=== PATIENT | female | born 1940 | race Caucasian/White ===

== ENCOUNTER 2018-08-12 17:54 | Emergency (ER) | payer OTHER, BC ==
[2018-08-12] MEDS ORDERED: ALBUTEROL 2.5 MG/3 ML NEB SOL ONE ×2 (18:33→18:38)
[2018-08-12] MEDS ORDERED: IPRATROPIUM BROM 0.5MG/2.5ML ONE ×2 (18:33→18:38)
[2018-08-12] MEDS ORDERED: NA CHLORIDE 0.9% 1,000 ML ONE (18:38)
[2018-08-12 18:51] LABS: Absolute Lymphocytes (CBC) 2.2 K/uL (0.7-4.9); Absolute Monocytes 0.6 K/uL (0.1-1.3); Absolute Neutrophil 3.8 K/uL (1.8-8.0); Basophils % 0.8 % (0-1.3); Eosinophils % 6.2 % (0-4.4); Hematocrit 41.5 % (36.0-45.0); Lymphocytes % 30.9 % (15.3-44.8); MCV 93.3 fL (80-100); MPV 8.2 fL (7.6-11.3); Monocytes % 8.9 % (3.3-12.3); RBC Red Blood Cell Count 4.45 M/uL (3.86-4.86)
[2018-08-12 18:55] LABS: Protime INR 0.94
[2018-08-12 19:07] LABS: ALT/SGPT 20 U/L (12-78); AST/SGOT 14 U/L (15-37); Albumin 3.4 g/dL (3.4-5.0); Alkaline Phosphatase 91 U/L (45-117); BUN Blood Urea Nitrogen 12 mg/dL (7-18); Bicarbonate 27 mmol/L (21-32); Bilirubin Direct < 0.1 mg/dL (0-0.2); Bilirubin Total 0.2 mg/dL (0.2-1.0); CKMB Creatine Kinase MB < 1.0 ng/mL (0.3-3.6); Creatine Phosphokinase 64 U/L (26-192); Glucose Level 96 mg/dL (74-106); Lipase 207 U/L (73-393); NT PRO-BNP 88 pg/mL (<450); Potassium 3.5 mmol/L (3.5-5.1); Sodium Level 142 mmol/L (136-145); Troponin (Emerg Dept Use Only) < 0.02 ng/mL (0.0-0.045)
--- NOTE | 2018-08-12 19:32 | RAD REPORT ---
EXAM DESCRIPTION: RAD - Chest Pa And Lat (2 Views) - 08/12/2018 7:12 pm CLINICAL HISTORY: Cough and congestion COMPARISON: None. TECHNIQUE: PA and lateral views of the chest were obtained. FINDINGS: The lungs are fibrotic. No focal lung parenchymal process seen. No failure or volume overl oad. Left-sided Port-A-Cath is in place. Heart size is normal and central vasculature is within nor mal limits. No pleural effusion or pneumothorax seen. No acute bony finding noted. No aortic abnor mality. IMPRESSION: Chronic interstitial lung disease is evident. No acute cardiopulmonary finding suspected .
--- NOTE | 2018-08-12 19:58 | RAD REPORT ---
EXAM DESCRIPTION: CT - Chest For Pe Angio - 08/12/2018 7:49 pm CLINICAL HISTORY: Cough, fever, shortness of breath, COPD COMPARISON: None. TECHNIQUE: Dynamically enhanced 3 mm thick images of the chest were obtained during administration o f approximately 150mL Isovue 370 IV contrast. Coronal and oblique MIP reconstruction images were gene rated and reviewed. Exam utilizes a protocol to evaluate the pulmonary arterial tree. All CT scans are performed using dose optimization technique as appropriate and may include automated exposure control or mA/KV adjustment according to patient size. FINDINGS: No pulmonary emboli are identified. The aorta as imaged shows no acute or suspicious finding. No pericardial thickening or effusion. No infiltrate or mass in the lung parenchyma. No pleural effusion or pleural thickening. Atelectasis changes are present in the posterior lung us and posterior aspect of the right upper lobe. No mediastinal or hilar suspicious masses. No chest wall masses or abnormal axillary lymphadenopathy. IMPRESSION: No pulmonary emboli identified. No other significant or suspicious findings.
--- NOTE | 2018-08-12 20:04 | EDPHYS ---
Physician Documentation [facility] Name: Milan Weir Age: 78 yrs Sex: Female : 1940 Arrival Date: 08/12/2018 Time: 17:56 Bed 16 Private MD: ED Physician John Ramon HPI: 08/12 18:14 This 78 yrs old Female presents to ER via Unassigned with complaints of kav Shortness Of Breath. 18:25 The patient has shortness of breath at rest, with light activity. Onset: The kav symptoms/episode began/occurred 2 year(s) ago, and became worse 1 week(s) ago. Duration: The symptoms are continuous, and are unchanged since they started. The patient's shortness of breath. Associated signs and symptoms: Pertinent positives: productive cough, fever, Pertinent negatives: dizziness, hemoptysis. Severity of symptoms: At their worst the symptoms were mild just prior to arrival. The patient has experienced similar episodes in the past, multiple times, but today's symptoms are worse. The patient has not recently seen a physician, Patient reports that she just moved to [place], [place] May 2018. Patient reports no PCP. Historical: - Allergies: 18:47 Tylenol-Codeine; rv - Home Meds: 19:09 Effexor Oral [Active]; Namenda oral oral [Active]; Aricept Oral [Active]; rv - PMHx: 18:47 COPD; rv 19:18 Alzheimers; Pancreatitis; Hernia; rv - PSHx: 19:18 Hernia repair; stomach surgery; Hysterectomy; rv - Immunization history:: Adult Immunizations up to date. - Social history:: Smoking status: Patient/guardian denies using tobacco. - Family history:: not pertinent. - Ebola Screening: : Patient negative for fever greater than or equal to 101.5 degrees Fahrenheit, and additional compatible Ebola Virus Disease symptoms Patient denies exposure to infectious person Patient denies travel to an Ebola-affected area in the 21 days before illness onset. - Hospitalizations: : No recent hospitalization is reported. ROS: 18:27 Eyes: Negative for injury, pain, redness, and discharge, ENT: Negative for injury, kav pain, and discharge, Neck: Negative for injury, pain, and swelling, Cardiovascular: Negative for chest pain, palpitations, and edema, Abdomen/GI: Negative for abdominal pain, nausea, vomiting, diarrhea, and constipation, Back: Negative for injury and pain, : Negative for injury, bleeding, discharge, and swelling, MS/Extremity: Negative for injury and deformity, Skin: Negative for injury, rash, and discoloration, Neuro: Negative for headache, weakness, numbness, tingling, and seizure, Psych: Negative for depression, anxiety, suicide ideation, homicidal ideation, and hallucinations, Allergy/Immunology: Negative for hives, rash, and allergies, Endocrine: Negative for neck swelling, polydipsia, polyuria, polyphagia, and marked weight changes, Hematologic/Lymphatic: Negative for swollen nodes, abnormal bleeding, and unusual bruising. 18:27 Constitutional: Positive for fever. 18:27 Respiratory: Positive for cough, with yellow sputum, shortness of breath. Exam: 18:27 Constitutional: This is a well developed, well nourished patient who is awake, alert, kav and in no acute distress. Head/Face: Normocephalic, atraumatic. Eyes: Pupils equal round and reactive to light, extra-ocular motions intact. Lids and lashes normal. Conjunctiva and sclera are non-icteric and not injected. Cornea within normal limits. Periorbital areas with no swelling, redness, or edema. ENT: Nares patent. No nasal discharge, no septal abnormalities noted. Tympanic membranes are normal and external auditory canals are clear. Oropharynx with no redness, swelling, or masses, exudates, or evidence of obstruction, uvula midline. Mucous membranes moist. Neck: Trachea midline, no thyromegaly or masses palpated, and no cervical lymphadenopathy. Supple, full range of motion without nuchal rigidity, or vertebral point tenderness. No Meningismus. Chest/axilla: Normal chest wall appearance and motion. Nontender with no deformity. No lesions are appreciated. Cardiovascular: Regular rate and rhythm with a normal S1 and S2. No gallops, murmurs, or rubs. Normal PMI, no JVD. No pulse deficits. Abdomen/GI: Soft, non-tender, with normal bowel sounds. No distension or tympany. No guarding or rebound. No evidence of tenderness throughout. Back: No spinal tenderness. No costovertebral tenderness. Full range of motion. Skin: Warm, dry with normal turgor. Normal color with no rashes, no lesions, and no evidence of cellulitis. MS/ Extremity: Pulses equal, no cyanosis. Neurovascular intact. Full, normal range of motion. Neuro: Awake and alert, GCS 15, oriented to person, place, time, and situation. Cranial nerves II-XII grossly intact. Motor strength 5/5 in all extremities. Sensory grossly intact. Cerebellar exam normal. Normal gait. Psych: Awake, alert, with orientation to person, place and time. Behavior, mood, and affect are within normal limits. 18:27 Respiratory: the patient does not display signs of respiratory distress, Respirations: normal, no acute changes, Breath sounds: are clear throughout, no acute changes. Vital Signs: 18:41 BP 132 / 87; Pulse 63; Resp 18; Pulse Ox 100% on R/A; Weight 52.16 kg (R); rv 19:28 BP 131 / 101; Pulse 77; Resp 22; Temp 97.9(O); Pulse Ox 100% on R/A; rv 20:35 Pulse 86; Resp 16; Pulse Ox 100% on R/A; tl2 MDM: 18:11 Medical screening is not applicable. ka 08/12 18:25 Order name: Blood Culture Adult (2) 08/12 18:25 Order name: BMP v 08/12 18:25 Order name: CBC with Diff v 08/12 18:25 Order name: Ckmb v 08/12 18:25 Order name: CPK v 08/12 18:25 Order name: D-Dimer; Complete Time: 19:22 kav 08/12 18:25 Order name: Hepatic Function; Complete Time: 19:22 kav 08/12 18:25 Order name: Lipase; Complete Time: 19:22 kav 08/12 18:25 Order name: Magnesium; Complete Time: 19:22 kav 08/12 18:25 Order name: NT PRO-BNP; Complete Time: 19:22 kav 08/12 18:25 Order name: PT-INR; Complete Time: 19:22 kav 08/12 18:25 Order name: Ptt, Activated; Complete Time: 19:22 kav 08/12 18:25 Order name: Troponin (emerg Dept Use Only); Complete Time: 19:22 kav 08/12 18:25 Order name: Blood Culture EDIL 08/12 18:25 Order name: XRAY Chest Pa And Lat (2 Views); Complete Time: 20:02 kav 08/12 18:25 Order name: EKG; Complete Time: 18:26 kav 08/12 18:25 Order name: Cardiac monitoring; Complete Time: 18:27 kav 08/12 18:25 Order name: EKG - Nurse/Tech; Complete Time: 18:27 kav 08/12 18:25 Order name: IV Saline Lock; Complete Time: 18:43 kav 08/12 18:25 Order name: Labs collected and sent; Complete Time: 18:43 kav 08/12 18:25 Order name: O2 Per Protocol; Complete Time: 18:27 kav 08/12 18:25 Order name: Basic Metabolic Panel; Complete Time: 19:22 EDMS 08/12 18:26 Order name: CBC with Automated Diff; Complete Time: 19:22 EDMS 08/12 18:26 Order name: CKMB Creatine Kinase MB; Complete Time: 19:22 EDMS 08/12 18:26 Order name: Creatine Phosphokinase; Complete Time: 19:22 EDMS 10 19:24 Order name: CT Chest For PE Angio; Complete Time: 20:02 kav 08/12 20:02 Interpretation: No acute disease. [facility] 08/12 18:25 Order name: O2 Sat Monitoring; Complete Time: 18:27 kav Administered Medications: 18:27 Drug: NS 0.9% 500 ml Route: IV; Rate: 100 ml/hr; Site: left antecubital; hj 20:37 Follow up: IV Status: Completed infusion; IV Intake: 500ml tl2 18:27 Drug: DuoNeb (3:1) (2.5 mg - 0.5 mg) 3 ml Route: Nebulizer; hj 20:23 Follow up: Response: No adverse reaction; Marked relief of symptoms tl2 20:11 Not Given (Patient Refused): Ibuprofen 600 mg PO once tl2 20:23 Drug: Phenergan 25 mg Route: PO; tl2 20:38 Follow up: Response: No adverse reaction; Medication administered at discharge. tl2 Disposition: 08/13 07:37 Co-signature as Attending Physician, John Ramon MD. rn Disposition: 08/12/18 20:04 Discharged to Home. Impression: Acute upper respiratory infection, unspecified. - Condition is Stable. - Discharge Instructions: Upper Respiratory Infection, Adult. - Prescriptions for Zithromax Z- Andrea 250 mg Oral Tablet - take 1 tablet by ORAL route as directed for 5 days Day 1 - take two (2) tablets one time. Day 2, 3, 4 , 5 take one (1) tablet once daily.; 6 tablet. Medrol (Andrea) 4 mg Oral Tablets, Dose Pack - take 1 tablet by ORAL route as directed - follow package instructions; 1 packet. benzonatate 100 mg Oral Capsule - take 1 capsule by ORAL route 3 times per day; 30 capsule. - Medication Reconciliation Form, Thank You Letter, Antibiotic Education, Prescription Opioid Use form. - Follow up: Private Physician; When: 2 - 3 days; Reason: Recheck today's complaints, Continuance of care, Re-evaluation by your physician. - Problem is new. - Symptoms have improved. Signatures: Dispatcher [employer] EDMS Alma Ibarra, FLOWER POT PRESS OPERATOR FLOWER POT PRESS OPERATOR John Nesbitt MD MD rn Joaquin, Henry RN Verito Angel RN RN tl2 Wilbert House RN RN rv Corrections: (The following items were deleted from the chart) 08/12 20:39 20:04 08/12/2018 20:04 Discharged to Home. Impression: Acute upper respiratory tl2 infection, unspecified. Condition is Stable. Forms are Medication Reconciliation Form, Thank You Letter, Antibiotic Education, Prescription Opioid Use. Follow up: Private Physician; When: 2 - 3 days; Reason: Recheck today's complaints, Continuance of care, Re-evaluation by your physician. Problem is new. Symptoms have improved. kav
--- NOTE | 2018-08-12 20:04 | ER ---
Nurse's Notes [facility] Name: Milan Weir Age: 78 yrs Sex: Female : 1940 Arrival Date: 08/12/2018 Time: 17:56 Bed 16 Private MD: Diagnosis: Acute upper respiratory infection, unspecified Presentation: 08/12 18:38 Presenting complaint: Patient states: PATIENT STATES: COUGH IS TWO MONTHS NOW. HAVING rv FEVER FOR THE LAST FOUR TO FIVE DAYS. PRODUCTIVE COUGH WITH WHITE TO YELLOWISH SPUTUM. SOB (+). Transition of care: patient was not received from another setting of care. Onset of symptoms was August 11, 2018 at 08:00. Risk Assessment: Do you want to hurt yourself or someone else? Patient reports no desire to harm self or others. Initial Sepsis Screen: Does the patient meet any 2 criteria? No. Patient's initial sepsis screen is negative. Care prior to arrival: None. 18:38 Method Of Arrival: Ambulatory rv 18:38 Acuity: JARRETT 3 rv 20:37 Initial Sepsis Screen: Does the patient have a suspected source of infection? No. tl2 Patient's initial sepsis screen is negative. Triage Assessment: 18:47 Respiratory: Reports shortness of breath on exertion Onset: The symptoms/episode rv began/occurred gradually, the patient has moderate shortness of breath. Historical: - Allergies: 18:47 Tylenol-Codeine; rv - Home Meds: 19:09 Effexor Oral [Active]; Namenda oral oral [Active]; Aricept Oral [Active]; rv - PMHx: 18:47 COPD; rv 19:18 Alzheimers; Pancreatitis; Hernia; rv - PSHx: 19:18 Hernia repair; stomach surgery; Hysterectomy; rv - Immunization history:: Adult Immunizations up to date. - Social history:: Smoking status: Patient/guardian denies using tobacco. - Family history:: not pertinent. - Ebola Screening: : Patient negative for fever greater than or equal to 101.5 degrees Fahrenheit, and additional compatible Ebola Virus Disease symptoms Patient denies exposure to infectious person Patient denies travel to an Ebola-affected area in the 21 days before illness onset. - Hospitalizations: : No recent hospitalization is reported. Screenin:44 Abuse screen: Denies threats or abuse. Denies injuries from another. Nutritional rv screening: No deficits noted. Tuberculosis screening: Never had TB. Possible symptoms: recent fever, cough for more than 2 weeks, Risk factors: None. Fall Risk No fall in past 12 months (0 pts). No secondary diagnosis (0 pts). No IV (0 pts). Ambulatory Aid- None/Bed Rest/Nurse Assist (0 pts). Gait- Weak (10 pts.). Mental Status- Oriented to own ability (0 pts). Total Owen Fall Scale indicates No Risk (0-24 pts). Assessment: 18:41 General: Appears in no apparent distress. uncomfortable, Behavior is calm, cooperative. rv Pain: Complains of pain in NECK AND BACK. Neuro: Level of Consciousness is obeys commands, Oriented to person, place, time, situation. Cardiovascular: Capillary refill < 3 seconds Rhythm is regular. Respiratory: Airway is patent Respiratory effort is labored, Breath sounds are coarse bilaterally. GI: No signs and/or symptoms were reported involving the gastrointestinal system. : No signs and/or symptoms were reported regarding the genitourinary system. EENT: No signs and/or symptoms were reported regarding the EENT system. Derm: Skin is intact. Musculoskeletal: Reports pain in NECK AND BACK. 19:28 Reassessment: Patient appears in no apparent distress at this time. General: Appears in rv no apparent distress. uncomfortable, Behavior is cooperative, appropriate for age, anxious. Pain: Complains of pain in neck and back. Neuro: Level of Consciousness is awake, alert, obeys commands, Oriented to person, place, time, situation. Cardiovascular: Denies chest pain, Rhythm is sinus rhythm. Respiratory: Reports shortness of breath cough that is Airway is patent Respiratory effort is even, unlabored, Respiratory pattern is regular, symmetrical, Breath sounds are coarse bilaterally. GI: Reports nausea. : No signs and/or symptoms were reported regarding the genitourinary system. Derm: Skin is intact, Skin is pink, warm \\T\\ dry. 19:31 Reassessment: Pt asked about accessing her port, pt said her port hasn't been accessed rv in "a while". Informed pt that we cannot access port if it hasn't been packed with heparin. Pt has 22 g to L AC that is patent and has good blood return. 20:35 Reassessment: Patient appears in no apparent distress at this time. Patient and/or tl2 family updated on plan of care and expected duration. Pain level reassessed. Patient is alert, oriented x 3, equal unlabored respirations, skin warm/dry/pink. Pt refused ibuprofen, states that it doesn't work. EMERGENCY DEPARTMENT CLINICIAN at bedside, ordered for PO phenergan before discharge. Pt and family verbalized understanding of discharge instructions, need for follow up, prescription usage and given resources for PCP's. Vital Signs: 18:41 BP 132 / 87; Pulse 63; Resp 18; Pulse Ox 100% on R/A; Weight 52.16 kg (R); rv 19:28 BP 131 / 101; Pulse 77; Resp 22; Temp 97.9(O); Pulse Ox 100% on R/A; rv 20:35 Pulse 86; Resp 16; Pulse Ox 100% on R/A; tl2 Vitals: 19:28 Cardiac Rhythm Assessment Sinus rhythm. rv ED Course: 17:56 Patient arrived in ED. as 18:11 Alma Ibarra FNP is PHCP. kav 18:11 John Ramon MD is Attending Physician. kav 18:30 Inserted saline lock: 22 gauge in left antecubital area, using aseptic technique. Blood rv collected. 18:30 Initial lab(s) drawn, by me, sent to lab. First set of blood cultures drawn by me. rv 18:40 Triage completed. rv 18:45 Arm band placed on right wrist. EKG completed in triage. Results shown to MD. rv 18:48 Patient has correct armband on for positive identification. Bed in low position. Call rv light in reach. Side rails up X 1. Adult w/ patient. Pulse ox on. NIBP on. 18:49 CBC with Diff Sent. rv 18:49 Blood Culture Adult (2) Sent. rv 18:49 BMP Sent. rv 18:49 Ckmb Sent. rv 18:49 CPK Sent. rv 18:49 D-Dimer Sent. rv 18:49 Hepatic Function Sent. rv 18:49 Lipase Sent. rv 18:49 Creatine Phosphokinase Sent. rv 18:50 CKMB Creatine Kinase MB Sent. rv 18:50 CBC with Automated Diff Sent. rv 18:50 Basic Metabolic Panel Sent. rv 18:50 Blood Culture Sent. rv 19:12 XRAY Chest Pa And Lat (2 Views) In Process Unspecified. EDMS 19:[address] ms 19:28 IV is patent, is intact, with good blood return. rv 19:49 CT completed. Patient tolerated procedure well. Patient moved back from [place]. ms 19:49 CT Chest For PE Angio In Process Unspecified. EDMS 19:59 Verito Holt, RN is Primary Nurse. tl2 20:35 No provider procedures requiring assistance completed. IV discontinued, intact, tl2 bleeding controlled, No redness/swelling at site. Pressure dressing applied. Administered Medications: 18:27 Drug: NS 0.9% 500 ml Route: IV; Rate: 100 ml/hr; Site: left antecubital; hj 20:37 Follow up: IV Status: Completed infusion; IV Intake: 500ml tl2 18:27 Drug: DuoNeb (3:1) (2.5 mg - 0.5 mg) 3 ml Route: Nebulizer; hj 20:23 Follow up: Response: No adverse reaction; Marked relief of symptoms tl2 20:11 Not Given (Patient Refused): Ibuprofen 600 mg PO once tl2 20:23 Drug: Phenergan 25 mg Route: PO; tl2 20:38 Follow up: Response: No adverse reaction; Medication administered at discharge. tl2 Intake: 20:37 IV: 500ml; Total: 500ml. tl2 Outcome: 20:04 Discharge ordered by MD. del cid 20:35 Discharged to home ambulatory, with family. tl2 20:35 Condition: stable 20:35 Discharge instructions given to patient, family, Instructed on discharge instructions, follow up and referral plans. medication usage, Demonstrated understanding of instructions, follow-up care, medications, Prescriptions given X 3. 20:39 Patient left the ED. tl2 Signatures: Dispatcher [employer] EDNE Alma Ibarra, TRANSMISSION LINE ENGINEER Rose Calles Henry, RN RN Verito Holt, RN RN tl2 Last Martin Ronaldo, RN RN rv
[2018-08-12] MEDS ORDERED: IBUPROFEN 200 MG TAB PO ONE (20:13)
[2018-08-12] MEDS ORDERED: IBUPROFEN 400 MG TAB ONE (20:13)
[2018-08-12] MEDS ORDERED: PROMETHAZINE 25 MG TABLET ONE (20:22)
--- NOTE | 2018-08-13 17:48 | EKG ---
Test Date: 2018-08-12 Test Time: 18:16:27 Encapsulator: MEASUREMENT RESULTS: Intervals: Rate: 63 [place]: 136 QRSD: 72 QT: 408 QTc: 417 [place]: P: 81 [place]: 136 QRS: 71 T: 73 INTERPRETIVE STATEMENTS: Normal sinus rhythm Normal ECG No previous ECG available for comparison Electronically Signed On 08-13-18 17:47:36 LINE STAKER by Stephen Alvarado
== END 2018-08-12 20:39 | disposition home or self-care (01) ==
LOC: ER 17:54
DX: J06.9 Acute upper respiratory infection, unspecified (principal); G30.9 Alzheimer's disease, unspecified; F02.80 Dementia in other diseases classified elsewhere, unspecified severity, without behavioral disturbance, psychotic disturbance, mood disturbance, and anxiety; J44.9 Chronic obstructive pulmonary disease, unspecified; Z88.5 Allergy status to narcotic agent
CPT/HCPCS: 36415; 71046; 71275; 80048; 80076; 82550; 82553; 83690; 83735; 83880; 84484; 85025; 85379; 85610; 85730; 87040 ×2; 93005; 94640; 96360; 96361; 99285; J7030; Q9967

== ENCOUNTER 2018-10-07 15:44 | Inpatient (IN) | payer OTHER, BC ==
--- OUTSIDE RECORDS SUMMARY | 2018-10-07 15:54 | XMS REPORT ---
:1940 [facility] Address [address] [place] [address] Care Team Providers Name Role Phone IVONSAMARIA MIKHAIL Unavailable Unavailable Problems This patient has no known problems. Allergies, Adverse Reactions, Alerts This patient has no known allergies or adverse reactions. Medications This patient has no known medications. Results Test Description Test Time Test Comments Text Results Atomic Results Result Comments BLOOD UREA NTIROGEN (BUN) 2016-12-27 09:33:00 Test Item Value Reference Range Comments BUN (test code=BUN) 16.0 mg/dl 6.0-17.0 CREATININE, [id number] 09:33:00 Test Item Value Reference Range Comments Creatinine (test 1.0 mg/dl 0.4-1.2 code=CREA) EGFR if >60 (test code=EGFRAA) mL/min/1.73m\S\2 EGFR if Non- 57 Estimated Glomerular Haitian (test mL/min/1.73m\S\2 Filtration Rate (eGFR) code=EGFRNA) Reference Intervals Decision Points for 18 years and older and average body mass: >=60 Does not exclude kidney disease. 30 - 59 Suggests moderate chronic kidney disease and indicates the need for further investigation including assessment of proteinuria and cardiovascular factors. < 30 Usually indicates a need for referral for assessment and management of chronic kidney failure.
[2018-10-07 18:39] LABS: Absolute Lymphocytes (CBC) 1.8 K/uL (0.7-4.9); Absolute Monocytes 0.5 K/uL (0.1-1.3); Absolute Neutrophil 4.6 K/uL (1.8-8.0); Basophils % 0.6 % (0-1.3); Eosinophils % 3.3 % (0-4.4); Lymphocytes % 25.1 % (15.3-44.8); MPV 7.9 fL (7.6-11.3); RBC Red Blood Cell Count 4.52 M/uL (3.86-4.86)
[2018-10-07] MEDS ORDERED: FENTANYL CITR 100 MCG/2 ML ONE (18:42)
[2018-10-07] MEDS ORDERED: ONDANSETRON 4 MG/2 ML VIAL ONE (18:43)
[2018-10-07] MEDS ORDERED: NA CHLORIDE 0.9% 1,000 ML ONE (18:43)
[2018-10-07 18:56] LABS: Albumin 3.1 g/dL (3.4-5.0); Bilirubin Direct 0.1 mg/dL (0-0.2); Bilirubin Total 0.3 mg/dL (0.2-1.0); Potassium 3.4 mmol/L (3.5-5.1); Protein, Total 6.6 g/dL (6.4-8.2)
--- NOTE | 2018-10-07 19:55 | RAD REPORT ---
EXAM DESCRIPTION: CT - Abdomen Pelvis W Contrast - 10/07/2018 7:25 pm CLINICAL HISTORY: Abdominal pain/right-sided pain with vomiting COMPARISON: October 04, 2018 TECHNIQUE: Computed axial tomography of the abdomen pelvis was obtained. 100 cc Isovue-300 was admin istered intravenously. Oral contrast was not requested which limits evaluation of bowel. All CT scans are performed using dose optimization technique as appropriate and may include automated exposure control or mA/KV adjustment according to patient size. FINDINGS: The liver, spleen, pancreas, adrenal and kidneys appear unremarkable. There is no evidence of diverticulitis. A hysterectomy has been performed. An adnexal mass is not see n. The gallbladder has been removed Cecum is minimally distended measuring 6 centimeters IMPRESSION: Minimal cecal distention measuring 6 millimeters. Otherwise no acute abnormality is displayed
[2018-10-07] MEDS ORDERED: PROMETHAZINE 25 MG/ML VIAL ONE (20:04)
[2018-10-07] MEDS ORDERED: MORPHINE 4 MG/ML SYR ONE (20:04)
[2018-10-07] MEDS ORDERED: MEPERIDINE HCL 25 MG/0.5 ML ONE (20:25)
--- NOTE | 2018-10-07 21:03 | ER ---
Nurse's Notes [facility] Name: Milan Weir Age: 78 yrs Sex: Female : 1940 Arrival Date: 10/07/2018 Time: 15:47 Bed 8 Private MD: Burak Pino K; Brandie Washington M Diagnosis: Generalized abdominal pain-cecal distention Presentation: 10/07 15:53 Presenting complaint: Patient states: Right sided abd pain, was seen at PCP office and hb sent over for low o2 with readings in the 90's per pt, pt reports hx of pancreatitis and this is what it feels like, reports having N/V for today. Transition of care: patient was not received from another setting of care. Onset of symptoms was October 07, 2018. Risk Assessment: Do you want to hurt yourself or someone else? Patient reports no desire to harm self or others. Initial Sepsis Screen: Does the patient meet any 2 criteria? No. Patient's initial sepsis screen is negative. Does the patient have a suspected source of infection? No. Patient's initial sepsis screen is negative. Care prior to arrival: None. 15:53 Method Of Arrival: Wheelchair hb 15:53 Acuity: JARRETT 3 hb Triage Assessment: 18:04 General: Appears distressed, uncomfortable, Behavior is cooperative, appropriate for bp age, anxious. Pain: Complains of pain in abdomen. GI: Abdomen is non-distended, Bowel sounds present X 4 quads. Historical: - Allergies: 15:52 Tylenol-Codeine; hb - Home Meds: 18:04 Aricept Oral [Active]; Effexor Oral [Active]; Namenda Oral [Active]; bp - PMHx: 18:04 Alzheimers; COPD; Hernia; Pancreatitis; bp - Immunization history:: Adult Immunizations up to date. - Social history:: Smoking status: Patient/guardian denies using tobacco. - Ebola Screening: : Patient negative for fever greater than or equal to 101.5 degrees Fahrenheit, and additional compatible Ebola Virus Disease symptoms Patient denies exposure to infectious person Patient denies travel to an Ebola-affected area in the 21 days before illness onset No symptoms or risks identified at this time. Screenin:07 Abuse screen: Denies threats or abuse. Denies injuries from another. Nutritional bp screening: No deficits noted. Tuberculosis screening: No symptoms or risk factors identified. Fall Risk None identified. Assessment: 16:46 Reassessment: pt no longer in lobby or outside of the department. sg 18:05 General: Appears distressed, uncomfortable, Behavior is cooperative, appropriate for bp age, anxious. Pain: Complains of pain in abdomen. Neuro: Level of Consciousness is awake, alert, obeys commands, Oriented to person, place, time, situation, Appropriate for age. Cardiovascular: No deficits noted. Respiratory: Airway is patent Respiratory effort is even, unlabored, Respiratory pattern is regular, symmetrical. GI: Bowel sounds present X 4 quads. Abdomen is tender to palpation X 4 quads. : No signs and/or symptoms were reported regarding the genitourinary system. EENT: No deficits noted. Derm: No deficits noted. Musculoskeletal: Circulation, motion, and sensation intact. Range of motion: intact in all extremities. 19:48 Reassessment: pt assisted to bedside commode with Jo Burns RN. pt reports nausea and ak1 dry heaves and would like Phenergan, WATER ANALYST notified. 20:23 Reassessment: Patient appears in no apparent distress at this time. Patient and/or ak1 family updated on plan of care and expected duration. Pain level reassessed. Patient is alert, oriented x 3, equal unlabored respirations, skin warm/dry/pink. pt and family informed of plan to discharge pt home. 22:07 Reassessment: Patient appears in no apparent distress at this time. No changes from ak1 previously documented assessment. Patient and/or family updated on plan of care and expected duration. Pain level reassessed. Patient is alert, oriented x 3, equal unlabored respirations, skin warm/dry/pink. family asking to see Dr. Larry. pt and family informed of increased number of admissions at this time and Dr. Larry notified of request, will be to room "shortly". 22:52 Reassessment: pt family Charlette ([phone]) and Guero ([phone]). ak1 Vital Signs: 15:52 BP 141 / 80; Pulse 89; Resp 24; Temp 98.3; Pulse Ox 99% on R/A; hb 20:24 BP 164 / 70; Pulse 90; Resp 20; Temp 98.3; Pulse Ox 100% on R/A; ak1 20:44 BP 148 / 81; Pulse 67; Resp 18; Temp 98.3; Pulse Ox 98% on R/A; Pain 3/10; ak1 22:09 BP 105 / 56; Pulse 68; Resp 16; Temp 98.3; Pulse Ox 97% on R/A; ak1 23:07 BP 120 / 65; Pulse 64; Resp 20; Temp 98.3; Pulse Ox 96% on R/A; ak1 ED Course: 15:47 Patient arrived in ED. tw3 15:52 Brandie Washington MD is Private Physician. hb 15:52 Burak Pino MD is Private Physician. hb 15:54 Triage completed. hb 15:54 Arm band placed on. hb 18:00 Donaldo Pennington, SANDY is Primary Nurse. bp 18:00 Inserted saline lock: 22 gauge in right antecubital area, using aseptic technique. bp Blood collected. 18:06 Pet[facility]anches F[facility]-C [facility]. kb 18:06 John Ramon MD is Attending Physician. kb 18:07 Patient has correct armband on for positive identification. Bed in low position. Call bp light in reach. Side rails up X2. Adult w/ patient. 19:14 Primary Nurse role handed off by Donaldo Pennington, SANDY ak1 19:14 Mariana Lima, SANDY is Primary Nurse. ak1 19:32 CT Abd/Pelvis - W/Contrast In Process Unspecified. EDMS 21:01 Burak Pino MD is Hospitalizing Provider. kb 21:01 Gavin Salazar MD is Hospitalizing Provider. kb 22:08 No provider procedures requiring assistance completed. Patient admitted, IV remains in ak1 place. Administered Medications: 18:20 Drug: NS 0.9% 1000 ml Route: IV; Rate: 1000 ml; Site: right antecubital; bp 20:09 Follow up: IV Status: Completed infusion; IV Intake: 1000ml ak1 18:20 Drug: Zofran 4 mg Route: IVP; Site: right antecubital; bp 20:09 Follow up: Response: Nausea unchanged ak1 18:20 Drug: fentaNYL (PF) 50 mcg Route: IVP; Site: right antecubital; bp 20:09 Follow up: Response: Pain is unchanged, physician notified ak1 20:09 Drug: Phenergan 12.5 mg Route: IVP; Site: right antecubital; ak1 20:23 Follow up: Response: No adverse reaction; Nausea is decreased ak1 20:21 Not Given (Patient Refused; pt asked for demerol, WATER ANALYST notified. ): morphine 4 mg IVP onceak1 20:22 Drug: Demerol - Meperidine 12.5 mg Route: IVP; Site: right antecubital; ak1 20:43 Follow up: Response: No adverse reaction; Pain is unchanged, physician notified ak1 20:43 Drug: Demerol - Meperidine 12.5 mg Route: IVP; Site: right antecubital; ak1 20:44 Follow up: Response: No adverse reaction; Pain is decreased ak1 21:04 Drug: Flagyl 500 mg Volume: 100 ml; Route: IVPB; Rate: 200 ml/hr; Infused Over: 30 ak1 mins; Site: right antecubital; 21:38 Follow up: IV Status: Completed infusion; IV Intake: 100ml ak1 21:04 Drug: Cipro 400 mg Volume: 200 ml; Route: IVPB; Infused Over: 60 mins; Site: right ak1 antecubital; 22:09 Follow up: IV Status: Completed infusion; IV Intake: 200ml ak1 Intake: 20:09 IV: 1000ml; Total: 1000ml. ak1 21:38 IV: 100ml; Total: 1100ml. ak1 22:09 IV: 200ml; Total: 1300ml. ak1 Outcome: 21:02 Decision to Hospitalize by Provider. kb 22:12 Instructed on the need for admit. ak1 22:13 Condition: stable ak1 23:08 Admitted to Med/surg accompanied by tech, via stretcher, room 212, with chart, Report ak1 called to Katiana nurse for 212. 10/08 00:03 Patient left the ED. ak1 Signatures: Dispatcher [employer] EDMS Petra Sanches, WEB PRODUCER-C WEB PRODUCER-Rey Jennings RN RN Mariana Rivera RN RN ak1 Richa Hathaway RN RN Leonardo, Jacqueline tw3 Donaldo Pennington, RN RN bp
--- NOTE | 2018-10-07 21:03 | EDPHYS ---
Physician Documentation [facility] Name: Milan Weir Age: 78 yrs Sex: Female : 1940 Arrival Date: 10/07/2018 Time: 15:47 Bed 8 Private MD: Burak Pino K; Brandie Washington M ED Physician John Ramon HPI: 10/07 21:29 This 78 yrs old Female presents to ER via Wheelchair with complaints of Abd kb Pain > 50 y/o, Shortness Of Breath, Nausea/Vomiting. 21:29 The patient presents with abdominal pain that is diffuse. Onset: The symptoms/episode kb began/occurred 5 day(s) ago. The symptoms do not radiate. Associated signs and symptoms: Pertinent positives: nausea and vomiting, Pertinent negatives: anorexia, blood in stools, chest pain, constipation, diarrhea, dysuria, fever, headache, hematuria, palpitations, shortness of breath, vaginal discharge, vomiting blood. The symptoms are described as constant. Modifying factors: The symptoms are alleviated by nothing, the symptoms are aggravated by pressure. Severity of pain: At its worst the pain was moderate in the emergency department the pain is unchanged. The patient has experienced a previous episode. The patient has been recently seen by a physician: the patient's primary care provider, with similar presenting complaints, and was sent to the [facility] Emergency Department for further evaluation. Historical: - Allergies: 15:52 Tylenol-Codeine; hb - Home Meds: 18:04 Aricept Oral [Active]; Effexor Oral [Active]; Namenda Oral [Active]; bp - PMHx: 18:04 Alzheimers; COPD; Hernia; Pancreatitis; bp - Immunization history:: Adult Immunizations up to date. - Social history:: Smoking status: Patient/guardian denies using tobacco. - Ebola Screening: : Patient negative for fever greater than or equal to 101.5 degrees Fahrenheit, and additional compatible Ebola Virus Disease symptoms Patient denies exposure to infectious person Patient denies travel to an Ebola-affected area in the 21 days before illness onset No symptoms or risks identified at this time. ROS: 21:28 Constitutional: Negative for fever, chills, and weight loss, ENT: Negative for injury, kb pain, and discharge, Neck: Negative for injury, pain, and swelling, Cardiovascular: Negative for chest pain, palpitations, and edema, Respiratory: Negative for shortness of breath, cough, wheezing, and pleuritic chest pain, Back: Negative for injury and pain, : Negative for injury, bleeding, discharge, and swelling, MS/Extremity: Negative for injury and deformity, Skin: Negative for injury, rash, and discoloration, Neuro: Negative for headache, weakness, numbness, tingling, and seizure. 21:28 Abdomen/GI: Positive for abdominal pain, nausea and vomiting, Negative for diarrhea, constipation, abdominal cramps, abdominal distension, anorexia. Exam: 21:29 Constitutional: This is a well developed, well nourished patient who is awake, alert, kb and in no acute distress. Head/Face: Normocephalic, atraumatic. ENT: Nares patent. No nasal discharge, no septal abnormalities noted. Tympanic membranes are normal and external auditory canals are clear. Oropharynx with no redness, swelling, or masses, exudates, or evidence of obstruction, uvula midline. Mucous membranes moist. Neck: Trachea midline, no thyromegaly or masses palpated, and no cervical lymphadenopathy. Supple, full range of motion without nuchal rigidity, or vertebral point tenderness. No Meningismus. Chest/axilla: Normal chest wall appearance and motion. Nontender with no deformity. No lesions are appreciated. Cardiovascular: Regular rate and rhythm with a normal S1 and S2. No gallops, murmurs, or rubs. Normal PMI, no JVD. No pulse deficits. Respiratory: Lungs have equal breath sounds bilaterally, clear to auscultation and percussion. No rales, rhonchi or wheezes noted. No increased work of breathing, no retractions or nasal flaring. Back: No spinal tenderness. No costovertebral tenderness. Full range of motion. Skin: Warm, dry with normal turgor. Normal color with no rashes, no lesions, and no evidence of cellulitis. MS/ Extremity: Pulses equal, no cyanosis. Neurovascular intact. Full, normal range of motion. Neuro: Awake and alert, GCS 15, oriented to person, place, time, and situation. Cranial nerves II-XII grossly intact. Motor strength 5/5 in all extremities. Sensory grossly intact. Cerebellar exam normal. Normal gait. 21:29 Abdomen/GI: Inspection: abdomen appears normal, Bowel sounds: normal, in all quadrants, Palpation: soft, in all quadrants, severe abdominal tenderness, in all quadrants. Vital Signs: 15:52 BP 141 / 80; Pulse 89; Resp 24; Temp 98.3; Pulse Ox 99% on R/A; hb 20:24 BP 164 / 70; Pulse 90; Resp 20; Temp 98.3; Pulse Ox 100% on R/A; ak1 20:44 BP 148 / 81; Pulse 67; Resp 18; Temp 98.3; Pulse Ox 98% on R/A; Pain 3/10; ak1 22:09 BP 105 / 56; Pulse 68; Resp 16; Temp 98.3; Pulse Ox 97% on R/A; ak1 23:07 BP 120 / 65; Pulse 64; Resp 20; Temp 98.3; Pulse Ox 96% on R/A; ak1 MDM: 18:06 Patient medically screened. kb 20:28 Data reviewed: vital signs, nurses notes. Data interpreted: Pulse oximetry: on room air kb is 100 %. Interpretation: normal. Physician consultation: Demian Garsia MD was contacted at 20:29, regarding consult, patient's condition, spoke with CLERK GUIDE, awaiting call back. 20:40 Physician consultation: Demian Garsia MD was contacted at 20:41, regarding consult, kb patient's condition, and will see patient in inpatient room, tomorrow. 20:50 Counseling: I had a detailed discussion with the patient and/or guardian regarding: the kb historical points, exam findings, and any diagnostic results supporting the discharge/admit diagnosis, lab results, radiology results, the need for further work-up and treatment in the hospital. 21:00 Physician consultation: Gavin Salazar MD was contacted at 21:01, regarding admission, kb to the medical/surgical unit. patient's condition, and will see patient in ED, shortly. 10/07 18:12 Order name: Basic Metabolic Panel; Complete Time: 19:01 kb 10/07 18:12 Order name: CBC with Diff; Complete Time: 18:50 kb 10/07 18:12 Order name: Hepatic Function; Complete Time: 19:01 kb 10/07 18:12 Order name: Lipase; Complete Time: 19:01 kb 10/07 19:02 Order name: CT Abd/Pelvis - W/Contrast; Complete Time: 19:58 kb 10/07 18:12 Order name: IV Saline Lock; Complete Time: 18:39 kb 10/07 18:12 Order name: Labs collected and sent; Complete Time: 18:39 kb Administered Medications: 18:20 Drug: NS 0.9% 1000 ml Route: IV; Rate: 1000 ml; Site: right antecubital; bp 20:09 Follow up: IV Status: Completed infusion; IV Intake: 1000ml ak1 18:20 Drug: Zofran 4 mg Route: IVP; Site: right antecubital; bp 20:09 Follow up: Response: Nausea unchanged ak1 18:20 Drug: fentaNYL (PF) 50 mcg Route: IVP; Site: right antecubital; bp 20:09 Follow up: Response: Pain is unchanged, physician notified ak1 20:09 Drug: Phenergan 12.5 mg Route: IVP; Site: right antecubital; ak1 20:23 Follow up: Response: No adverse reaction; Nausea is decreased ak1 20:21 Not Given (Patient Refused; pt asked for demerol, CLERK GUIDE notified. ): morphine 4 mg IVP onceak1 20:22 Drug: Demerol - Meperidine 12.5 mg Route: IVP; Site: right antecubital; ak1 20:43 Follow up: Response: No adverse reaction; Pain is unchanged, physician notified ak1 20:43 Drug: Demerol - Meperidine 12.5 mg Route: IVP; Site: right antecubital; ak1 20:44 Follow up: Response: No adverse reaction; Pain is decreased ak1 21:04 Drug: Flagyl 500 mg Volume: 100 ml; Route: IVPB; Rate: 200 ml/hr; Infused Over: 30 ak1 mins; Site: right antecubital; 21:38 Follow up: IV Status: Completed infusion; IV Intake: 100ml ak1 21:04 Drug: Cipro 400 mg Volume: 200 ml; Route: IVPB; Infused Over: 60 mins; Site: right ak1 antecubital; 22:09 Follow up: IV Status: Completed infusion; IV Intake: 200ml ak1 Disposition: 10/08 17:17 Co-signature as Attending Physician, John Ramon MD. rn Disposition: 10/07/18 21:02 Hospitalization ordered by Gavin Salazar for Observation. Preliminary diagnosis is Generalized abdominal pain - cecal distention. - Bed requested for Telemetry/MedSurg (observation). - Status is Observation. ak1 - Condition is Stable. - Problem is new. - Symptoms have improved. UTI on Admission? No Signatures: Dispatcher [employer] EDMS Petra Sanches, ARCADE GAMES MECHANIC-C ARCADE GAMES MECHANIC-Ckb Nora Henderson, RN RN John Ramon MD MD rn Krenek, Amber RN SANDY ak1 Richa Hathaway, RN RN Donaldo Pennington, RN RN bp Corrections: (The following items were deleted from the chart) 10/07 21:29 21:29 Abdomen/GI: Inspection: abdomen appears normal, Bowel sounds: normal, in all kb quadrants, Palpation: soft, in all quadrants, moderate abdominal tenderness, in all quadrants, kb 22:30 21:02 Hospitalization Ordered by Gavin Salazar MD for Observation. Preliminary mw diagnosis is Generalized abdominal pain - cecal distention. Bed requested for Telemetry/MedSurg (observation). Status is Observation. Condition is Stable. Problem is new. Symptoms have improved. UTI on Admission? No. kb 10/08 00:03 10/07 22:30 10/07/2018 21:02 Hospitalization Ordered by Gavin Salazar MD for ak1 Observation. Preliminary diagnosis is Generalized abdominal pain - cecal distention. Bed requested for Telemetry/MedSurg (observation). Status is Observation. Condition is Stable. Problem is new. Symptoms have improved. UTI on Admission? No. mw
[2018-10-07] MEDS ORDERED: METRONIDAZOLE 500mg IVPB 500 MG/100 ML BAG IV ONE (21:08)
[2018-10-07] MEDS ORDERED: CIPROFLOXACIN 400mg IV 400 MG/200 ML BAG IV ONE (21:08)
--- NOTE | 2018-10-07 22:37 | P.HP ---
Certification for Inpatient Patient admitted to: Inpatient With expected LOS: >2 Midnights Practitioner: I am a practitioner with admitting privileges, knowledge of patient current condition, hospital course, and medical plan of care. Services: Services provided to patient in accordance with Admission requirements found in Title 42 Section 412.3 of the Code of Federal Regulations Patient History Date of Service: 10/07/18 Reason for admission: colitis History of Present Illness: Ms Weir is a 78 years old woman with history of Alzheimer's disease, COPD, who start with abdominal pain a couple of days ago. The pain was diffuse but mostly localized on RLQ, 7/10 of intensity. She has had nausea and vomiting, also subjective fever. Today she went to his PCP, and was referred to ER for deeper evaluation. Lab work shows normal WBC count. CT abd/pelvis remarkable for minimal cecal distention. At my encounter, the patient was in non-distress. No fever. Home medications list reviewed: Yes - Past Medical/Surgical History -: COPD -: Alzheimer's disease -: pancreatitis Past Surgical History: Reviewed- Non-Contributory - Family History Family History: Reviewed- Non-Contributory - Social History Smoking Status: Former smoker Alcohol use: No Place of Residence: Home Review of Systems 10-point ROS is otherwise unremarkable Physical Examination - Physical Exam General: Alert, In no apparent distress HEENT: Atraumatic, PERRLA, Mucous membr. moist/pink, EOMI, Sclerae nonicteric Neck: Supple, 2+ carotid pulse no bruit, No LAD, Without JVD or thyroid abnormality Respiratory: Clear to auscultation bilaterally, Normal air movement Cardiovascular: Regular rate/rhythm, Normal S1 S2 Gastrointestinal: Normal bowel sounds, Tenderness (Tender to palpation on RLQ.) Musculoskeletal: No tenderness Integumentary: No rashes Neurological: Normal speech, Normal strength at 5/5 x4 extr, Normal tone, Normal affect Lymphatics: No axilla or inguinal lymphadenopathy - Studies Laboratory Data (last 24 hrs) 10/07/18 18:25: WBC 7.2, Hgb 14.3, Hct 42.0, Plt Count 219 10/07/18 18:25: Sodium 143, Potassium 3.4 L, BUN 13, Creatinine 0.84, Glucose 100, Total Bilirubin 0.3, AST 12 L, ALT 18, Alkaline Phosphatase 80, Lipase 335 Assessment and Plan - Problems (Diagnosis) (1) Colitis Current Visit: Yes Status: Acute (2) Alzheimers disease Current Visit: Yes Status: Acute Qualifiers: Alzheimer's disease onset: unspecified onset Dementia behavioral disturbance: without behavioral disturbance Qualified Code(s): G30.9 - Alzheimer's disease, unspecified; F02.80 - Dementia in other diseases classified elsewhere without behavioral disturbance (3) COPD (chronic obstructive pulmonary disease) Current Visit: Yes Status: Acute Qualifiers: COPD type: unspecified COPD Qualified Code(s): J44.9 - Chronic obstructive pulmonary disease, unspecified - Plan Will admit the patient due to colitis. Will start empiric treatment with Cipro and Flagyl IV. Dr Garsia was consulted and he will see the patient in AM. Keep her NPO, start IV fluids and symptomatic medication. - Advance Directives Does patient have a Living Will: No Does patient have a Durable POA for Healthcare: No - Code Status/Comfort Care Code Status Assessed: Yes Code Status: Full Code
[2018-10-08] MEDS: NA CHLORIDE 0.9% 1,000 ML IV SCH ×3 (01:04→20:26)
[2018-10-08] MEDS: METRONIDAZOLE 500mg IVPB 500 MG/100 ML BAG IV SCH ×3 (01:13→16:38)
[2018-10-08 06:30] LABS: Absolute Lymphocytes (CBC) 1.6 K/uL (0.7-4.9); Absolute Monocytes 0.4 K/uL (0.1-1.3); Basophils % 0.4 % (0-1.3); Eosinophils % 4.8 % (0-4.4); Hematocrit 38.7 % (36.0-45.0); Lymphocytes % 30.7 % (15.3-44.8); MPV 7.8 fL (7.6-11.3); Monocytes % 7.3 % (3.3-12.3); RBC Red Blood Cell Count 4.13 M/uL (3.86-4.86)
[2018-10-08 06:38] LABS: Magnesium 2.1 mg/dL (1.8-2.4); Potassium 3.9 mmol/L (3.5-5.1)
[2018-10-08] MEDS ORDERED: KCL 20 MEQ/100 mL IVPB 20 MEQ/100 ML BAG IV SCH (07:00)
[2018-10-08] MEDS: CIPROFLOXACIN 400mg IV 400 MG/200 ML BAG IV SCH ×2 (09:30→21:16)
[2018-10-08] MEDS ORDERED: FENTANYL CITR 100 MCG/2 ML IV ONE (09:42)
[2018-10-08] MEDS ORDERED: SODIUM CHLORIDE 0.9% 10ML INJ IV PRN (09:51)
[2018-10-08] MEDS: PANTOPRAZOLE 40 MG INJ IVP SCH ×2 (09:52→21:16)
[2018-10-08] MEDS: ONDANSETRON 4 MG/2 ML VIAL IV PRN ×2 (09:56→18:23)
[2018-10-08] MEDS ORDERED: BISACODYL E.C. 5 MG TAB PO PRN (14:02)
[2018-10-08] MEDS ORDERED: FLEET ENEMA ADULT PR PRN (14:03)
[2018-10-08 14:08] LABS: Urine Appearance CLEAR; Urine Bilirubin NEGATIVE (NEG); Urine Blood TRACE (NEG); Urine Color YELLOW; Urine Glucose NEGATIVE (NEG); Urine Protein NEGATIVE (NEG); Urine Specific Gravity <=1.005 (1.005-1.030); Urine Urobilinogen 0.2 mg/dL (0.2-1.0)
[2018-10-08 14:10] LABS: Urine Microscopic Reflex ORDER UMIC
[2018-10-08 14:15] LABS: Urine Bacteria <20 /HPF (<20); Urine Culture Reflex Order REFLEXED; Urine RBC <5 /HPF (NONE SEEN)
[2018-10-08] MEDS ORDERED: FENTANYL CITR 100 MCG/2 ML IV PRN (14:57)
--- NOTE | 2018-10-08 20:41 | PN ---
Date of Progress Note: 10/08/2018 Subjective: The patient seen and examined, chart reviewed, and case discussed with RN. The patient is complaining of pain in her back, which is chronic. Code Status: Do not resuscitate. Family at the bedside. The patient does have an [id number] D NR as well. She wishes do not be resuscitated. Medications: List reviewed. Physical Examination: Vital Signs: Temperature 97.6, heart rate 58, blood pressure 121/57, respirations 18, O2 95% on room air. GENERAL: Awake, alert, oriented x3, elderly female, ill appearing, in some mild distress due to pain . CV: S1, S2. Regular rate and rhythm. Peripheral pulses present. Respiratory: Moving air well bilaterally. No wheezing or stridor. Gastrointestinal: Abdomen is soft. Mild tenderness to palpation. No guarding or rigidity. Bowel s ounds positive. Extremities: No clubbing, cyanosis, or edema. No calf tenderness. Neurologic: Cranial nerves 2 through 12 intact grossly. No focal neurological deficit. Speech is n ormal. Skin: No rashes. Normal skin turgor. Laboratory Data: Sodium 145, potassium 3.9, chloride 113, CO2 27, BUN 10, creatinine 0.8, glucose 94 , calcium 8, magnesium 2.1. WBC 5.2, H and H 13.1 and 38.7, platelets 187. Urine culture is pending . Assessment And Plan: A 78-year-old female with, 1.Acute colitis. Continue Cipro and Flagyl. Appreciate GI input. The patient is scheduled for upp er GI series. Pain control. 2.Alzheimer disease without behavioral disturbance, early onset. 3.Chronic obstructive pulmonary disease, chronic bronchitis. Resume home medications as appropriate . 4.Gastrointestinal and deep vein thrombosis prophylaxis with PPI and SCDs. 5.Major depressive disorder, on Effexor. 6.Chronic back pain, midline without sciatica. We will adjust pain medications. PLAN: Follow up on upper GI series and Dr. Garsia's recommendation. Start on clear liquid diet. SA/MODL Voice ID: [id number] Report ID: [id number]
[2018-10-08] MEDS ORDERED: VENLAFAXINE HCL XR 75 MG CAP PO SCH (21:00)
[2018-10-08] MEDS ORDERED: DONEPEZIL HCL 5 MG TAB PO SCH (21:00)
[2018-10-08] MEDS: MEMANTINE HCL 10 MG TABLET PO SCH (21:16)
[2018-10-09] MEDS: METRONIDAZOLE 500mg IVPB 500 MG/100 ML BAG IV SCH ×3 (00:19→16:48)
[2018-10-09] MEDS: ONDANSETRON 4 MG/2 ML VIAL IV PRN ×2 (00:23→08:42)
[2018-10-09] MEDS: NA CHLORIDE 0.9% 1,000 ML IV SCH ×2 (04:50→16:48)
[2018-10-09 07:08] LABS: Potassium 3.7 mmol/L (3.5-5.1)
[2018-10-09] MEDS: MEMANTINE HCL 10 MG TABLET PO SCH ×2 (08:42→08:58)
[2018-10-09] MEDS: PANTOPRAZOLE 40 MG INJ IVP SCH (08:42)
[2018-10-09] MEDS ORDERED: KCL 20 MEQ/100 mL IVPB 20 MEQ/100 ML BAG IV SCH (09:00)
--- NOTE | 2018-10-09 11:27 | RAD REPORT ---
EXAM DESCRIPTION: RAD - Upper GI W/Air Cont W/Kub - 10/09/2018 11:18 am CLINICAL HISTORY: nausea, vomiting, hiatal hernia COMPARISON: Abdomen Pelvis W Contrast dated 10/07/2018 FINDINGS: The patient was administered barium by mouth under fluoroscopic observation. The swallowin g mechanism is normal. Mild esophageal dysmotility is seen throughout the esophagus with tertiary con tractions. No intrinsic or extrinsic esophageal mass detected. Small hiatal hernia is noted. The stomach shows a normal contour and configuration without evidence o f gastric mass or wall-thickening. Proximal small bowel is unremarkable. Total fluoroscopy time: 1 minutes and 9 seconds. Number of the images obtained: 20 IMPRESSION: Mild esophageal dysmotility with tertiary contractions. Small hiatal hernia.
[2018-10-09] MEDS: CIPROFLOXACIN 400mg IV 400 MG/200 ML BAG IV SCH (11:31)
[2018-10-09] MEDS ORDERED: PROMETHAZINE 25 MG/ML VIAL IV PRN (11:50)
[2018-10-09] MEDS ORDERED: MEPERIDINE HCL 25 MG/0.5 ML IV PRN (11:50)
--- NOTE | 2018-10-09 17:09 | PN ---
Date of Progress Note: 10/09/2018 Subjective: The patient seen and examined. Chart reviewed and case discussed with RN. The patient complains of significant amount of back pain and hip pain, which she states is chronic. The patient specifically asking for Demerol and Phenergan and states that she is not an addict. Usually she is a ble to be more mobile and is able to manage her pain; however, while being in the hospital in the [facility] bed, has had exacerbation of her chronic pain. The patient is n.p.o. for upper GI series. Medications: List reviewed. Physical Examination: Vital Signs: Temperature 98.1, heart rate 66, blood pressure 131/70, respirations 20, O2 96% on room air. General: Awake, alert, oriented x3. Elderly female, in some mild pain. CV: S1, S2. Regular rate and rhythm. Peripheral pulses present. Respiratory: Moving air well bilaterally. No wheezing or stridor. Gastrointestinal: Abdomen is soft. Tenderness to palpation. No guarding or rigidity. No distentio n. Bowel sounds positive. Extremities: No clubbing, cyanosis, or edema. Neurologic: Nonfocal. Laboratory Data: Sodium 145, potassium 3.7, chloride 114, CO2 29, BUN 7, creatinine 0.83, glucose 85 , calcium 7.9. Urine culture shows no growth. Upper GI series with air contrast shows mild esophage al dysmotility with tertiary contractions, small hiatal hernia. Assessment And Plan: A 78-year-old female with: 1.Acute colitis. Continue IV antibiotics. Upper GI series does show some esophageal dysmotility. 2.Esophageal dysmotility. GI on board. 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 Continue donepezil. 4.Chronic obstructive pulmonary disease, chronic bronchitis, stable. Continue albuterol p.r.n. Mon itor O2 levels. 5.Major depressive disorder, on Effexor. 6.Chronic back pain, midline, without sciatica. Pain medications adjusted. 7.Intractable nausea and vomiting. The patient unable to tolerate much of a diet. We will switch Z ofran to Phenergan, likely related to esophageal dysmotility. 8.Small hiatal hernia. 9.Gastrointestinal and deep venous thrombosis prophylaxis with PPI and SCDs. No chemical anticoagul ation due to recent procedure. Plan: We will continue to monitor. Follow up with GI recommendations. /MCKAYLA Voice ID: [id number] Report ID: [id number]
--- NOTE | 2018-10-10 04:13 | DS ---
Date of Discharge: 10/09/2018 Consultants: Demian Garsia MD with GI. Admitting Diagnoses: 1.Colitis. 2.Alzheimer disease, early onset without behavioral disturbance. 3.Chronic obstructive pulmonary disease, chronic bronchitis. Discharge Diagnoses: 1.Acute colitis. 2.Alzheimer disease without behavioral disturbance, early onset. 3.Esophageal dysmotility. 4.Chronic obstructive pulmonary disease, chronic bronchitis. 5.Major depressive disorder. 6.Chronic back pain, midline, without sciatica. Hospital Course: The patient is a 78-year-old female who was admitted to the hospital for abdominal pain. She was found to have minimal cecal distention measuring 6 mm. Otherwise, no acute abnormalit y was seen. She did have some difficulty. She did have some dysphagia. She was started on IV antib iotics and was referred for admission. The patient was seen by GI. She was started on IV PPI b.i.d. Upper GI series with contrast was done, showed mild esophageal dysmotility with tertiary contractio ns and small hiatal hernia. The patient was restarted on a GI soft diet, which she was able to benito ate. The patient's symptoms improved. She was cleared for discharge from GI standpoint. She was ab le to tolerate her diet. She was then discharged home in a stable condition. The patient did have s ome mild electrolyte abnormalities, which were corrected. The patient refused any procedures includi ng EGD. GI did not however recommend procedure at this time, however, for the future, patient did de reyez any procedures. The patient was then discharged home in a stable condition. Activity: As tolerated. Medications: As per medication reconciliation list. No need for antibiotics. The patient will be s ent home on AcipHex and sucralfate, Phenergan as needed. Followup with primary care physician in 2-3 days. Follow up with GI, Dr. Garsia in 2 weeks. Return to ER for worsening condition. Diet: Heart healthy. For physical exam findings, please see progress note dictated on the day of discharge. Total time spent discharging the patient was 41 minutes. /MODL Voice ID: [id number] Report ID: [id number]
== END 2018-10-09 19:36 | disposition home or self-care (01) | DRG 392 ==
LOC: ER 15:44 → ERHOLD 22:32 → 2ND 23:10
PROVIDERS: ADMIT Internal Medicine; ATTEND Family Medicine
DX: K52.9 Noninfective gastroenteritis and colitis, unspecified (principal); F02.80 Dementia in other diseases classified elsewhere, unspecified severity, without behavioral disturbance, psychotic disturbance, mood disturbance, and anxiety; J44.9 Chronic obstructive pulmonary disease, unspecified; Z66 Do not resuscitate; G30.0 Alzheimer's disease with early onset; F32.9 Major depressive disorder, single episode, unspecified; G89.29 Other chronic pain; K22.4 Dyskinesia of esophagus; K44.9 Diaphragmatic hernia without obstruction or gangrene; R11.2 Nausea with vomiting, unspecified; R13.10 Dysphagia, unspecified; M54.89 Other dorsalgia
CPT/HCPCS: 36415; 74177; 74178; 74247; 80048; 80076; 81003; 81015; 83690; 83735; 85025; 87086; 87088; 96361; 96365; 96368; 96375; 97163; 99285; C9113; J0744; J2175; J2405; J2550; J3010; J7030; Q9967

== ENCOUNTER 2018-10-11 14:18 | Emergency (ER) | payer OTHER, BC ==
--- OUTSIDE RECORDS SUMMARY | 2018-10-11 14:21 | XMS REPORT ---
:1940 Author Organization [facility] Address [address] [place] [address] Care Team Providers Name Role Phone IVONSAMARIA [...] BUN (test code=BUN) 16.0 mg/dl 6.0-17.0 CREATININE, [id number] 09:33:00 Test Item Value Reference Range Comments Creatinine (test 1.0 mg/dl 0.4-1.2 code=CREA) EGFR if >60 (test code=EGFRAA) mL/min/1.73m\S\2 EGFR if Non- 57 Estimated Glomerular [place] (test mL/min/1.73m\S\2 Filtration Rate (eGFR) code=EGFRNA) Reference [...]
[2018-10-11] MEDS ORDERED: ONDANSETRON 4 MG/2 ML VIAL ONE (15:57)
[2018-10-11] MEDS ORDERED: NA CHLORIDE 0.9% 1,000 ML ONE (15:57)
[2018-10-11 17:34] LABS: Absolute Lymphocytes (CBC) 0.9 K/uL (0.7-4.9); Absolute Monocytes 0.4 K/uL (0.1-1.3); Absolute Neutrophil 3.4 K/uL (1.8-8.0); Basophils % 0.7 % (0-1.3); Eosinophils % 0.6 % (0-4.4); Hematocrit 44.4 % (36.0-45.0); Lymphocytes % 18.7 % (15.3-44.8); MPV 8.8 fL (7.6-11.3); Monocytes % 8.5 % (3.3-12.3); RBC Red Blood Cell Count 4.77 M/uL (3.86-4.86)
[2018-10-11] MEDS ORDERED: PROMETHAZINE 25 MG/ML VIAL ONE (17:37)
[2018-10-11] MEDS ORDERED: MORPHINE 4 MG/ML SYR ONE (17:38)
[2018-10-11 18:44] LABS: Albumin 2.7 g/dL (3.4-5.0); Bilirubin Direct 0.1 mg/dL (0-0.2); Bilirubin Total 0.4 mg/dL (0.2-1.0); Potassium 3.2 mmol/L (3.5-5.1)
--- NOTE | 2018-10-11 19:33 | RAD REPORT ---
EXAM DESCRIPTION: CT - Abdomen Pelvis W Contrast - 10/11/2018 7:16 pm CLINICAL HISTORY: Abdominal pain, recent hospitalization for pancreatitis COMPARISON: CT imaging October 07 TECHNIQUE: Biphasic, helical CT imaging of the abdomen and pelvis was performed following 100 ml non -ionic IV contrast. Oral contrast was given. All CT scans are performed using dose optimization technique as appropriate and may include automated exposure control or mA/KV adjustment according to patient size. FINDINGS: No suspicious findings in the lung bases. Liver and spleen show no suspicious findings. Cholecystectomy changes are present. Biliary tree dilat ation is present increased somewhat from the prior study. No duodenal or pancreatic mass identified. Duct stones can be occult. No focal mass of the pancreatic parenchyma seen. No peripancreatic edema o r stranding noted. Symmetric renal function is seen with no hydronephrosis or suspicious renal mass. No pyelonephritis o r acute parenchymal process. No bladder abnormalities. No adrenal abnormalities. No gastric dilatation or wall thickening. No biliary tree dilatation. No acute colon process seen. Dakota dill has very pronounced sigmoid diverticulosis. No free air, free fluid or inflammatory stranding. No mass or bulky lymphadenopathy. Uterus is absent. No suspicious bony findings. IMPRESSION: No obstruction, free air or surgically emergent finding. Biliary tree dilatation is present and progressive from October 07. Duct stones can be occult. No eddy creatic or duodenal mass seen. Correlation is needed with any biliary obstructive symptoms. No CT findings for acute pancreatitis. Prominent diverticulosis. An acute GI process is not confirmed.
[2018-10-11 20:49] LABS: Urine Blood 1+ (NEG); Urine Glucose NEGATIVE (NEG); Urine Protein NEGATIVE (NEG); Urine Specific Gravity 1.015 (1.005-1.030); Urine pH 6.5 (5.0-7.0)
--- NOTE | 2018-10-11 20:58 | RAD REPORT ---
EXAM DESCRIPTION: RAD - Chest Pa And Lat (2 Views) - 10/11/2018 8:45 pm CLINICAL HISTORY: Cough, fever COMPARISON: August 2018 TECHNIQUE: PA and lateral views of the chest were obtained. FINDINGS: The lungs are fibrotic. No peripheral mass or consolidation. No failure or volume overload . Left-sided Port-A-Cath is in place. Heart size is normal and central vasculature is within normal limits. No pleural effusion or pneumothorax seen. No acute bony finding noted. No aortic abnormal ity. IMPRESSION: Fibrotic lung pattern is present similar to comparison. No acute findings seen.
--- NOTE | 2018-10-11 21:05 | ER ---
Nurse's Notes [facility] Name: Milan Weir Age: 78 yrs Sex: Female : 1940 Arrival Date: 10/11/2018 Time: 14:20 Bed 7 Private MD: Diagnosis: Other abdominal pain;Cough Presentation: 10/11 14:20 Presenting complaint: EMS states: RUQ pain and N/V since this morning. Pt was hb hospitalized for pancreatitis, discharged yesterday. BP 128/76, HR 88, 22g to right hand. Transition of care: patient was not received from another setting of care. Onset of symptoms was October 11, 2018. Risk Assessment: Do you want to hurt yourself or someone else? Patient reports no desire to harm self or others. Initial Sepsis Screen: Does the patient meet any 2 criteria? No. Patient's initial sepsis screen is negative. Does the patient have a suspected source of infection? No. Patient's initial sepsis screen is negative. Care prior to arrival: IV initiated. 22 GA, in the right hand. 14:20 Method Of Arrival: EMS: [facility] 14:20 Acuity: JARRETT 3 hb Historical: - Allergies: 14:23 Tylenol-Codeine; hb - Home Meds: 14:46 Aricept Oral [Active]; Effexor Oral [Active]; Namenda Oral [Active]; sg - PMHx: 14:46 Alzheimers; COPD; Hernia; Pancreatitis; sg - Immunization history:: Adult Immunizations up to date. - Social history:: Smoking status: Patient/guardian denies using tobacco. - Ebola Screening: : No symptoms or risks identified at this time. Screenin:24 Abuse screen: Denies threats or abuse. Denies injuries from another. Nutritional hb screening: No deficits noted. Tuberculosis screening: No symptoms or risk factors identified. Fall Risk Total Owen Fall Scale indicates Low Risk Score (25-44 pts). Fall prevention measures have been instituted. Side Rails Up X 2 Frequent Obs/Assesments occuring As available Patient and Family Educated on Fall Prevention Program and strategies. Assessment: 14:47 General: Appears in no apparent distress. uncomfortable, slender, well groomed, well sg developed, well nourished, Behavior is cooperative, agitated. Pain: Complains of pain in abdomen Quality of pain is described as aching. Neuro: No deficits noted. Cardiovascular: No deficits noted. Patient's skin is warm and dry. Chest pain is denied. Respiratory: Airway is patent Respiratory effort is even, unlabored, Respiratory pattern is regular, symmetrical. GI: Abdomen is flat, non-distended, Bowel sounds present X 4 quads. Abd is soft and non tender X 4 quads. : No signs and/or symptoms were reported regarding the genitourinary system. EENT: No signs and/or symptoms were reported regarding the EENT system. Derm: Skin is pink, warm \T\ dry. Musculoskeletal: No signs and/or symptoms reported regarding the musculoskeletal system. 15:40 Reassessment: Patient appears in no apparent distress at this time. Patient and/or sg family updated on plan of care and expected duration. Pain level reassessed. Patient is alert, oriented x 3, equal unlabored respirations, skin warm/dry/pink. Patient states symptoms have not improved. 17:45 Reassessment: Patient appears in no apparent distress at this time. lab contacted for sg assistance obtaining lab specimen, pt is a difficult stick after multiple attempts at obtaining blood, pt and pt son stated understanding, will continue to monitor. 18:40 Reassessment: Patient appears in no apparent distress at this time. Patient and/or sg family updated on plan of care and expected duration. Pain level reassessed. Patient is alert, oriented x 3, equal unlabored respirations, skin warm/dry/pink. pt resting, eyes closed, no s/s of resp distress noted at this time. 19:05 Reassessment: pt to CT. ak1 19:37 Reassessment: pt cleaned of incontinence, bedside commode placed in room for pt to use. ak1 pt given call hernandez to call for assistance. family at bedside. will continue to monitor. 19:48 Reassessment: pt given ice water. will reassess N/V. ak1 20:06 Reassessment: no vomiting noted or reported after water intake, ERP notified. ak1 Vital Signs: 14:23 BP 128 / 72; Pulse 88; Resp 16; Temp 98.3; Pulse Ox 98% on R/A; Pain 8/10; hb 17:40 BP 116 / 70; Pulse 80; Resp 17; Temp 98.2; Pulse Ox 98% on R/A; sg 19:39 BP 126 / 90; Pulse 62; Resp 18; Temp 98.1(O); Pulse Ox 98% on R/A; ak1 21:18 BP 121 / 78; Pulse 87; Resp 18; Temp 98.1; Pulse Ox 99% on R/A; aj ED Course: 14:20 Patient arrived in ED. hb 14:22 Triage completed. hb 14:23 Arm band placed on right wrist. hb 14:24 Patient has correct armband on for positive identification. Bed in low position. Call hb light in reach. Side rails up X2. 14:24 Maintain EMS IV. Dressing intact. Good blood return noted. Site clean \T\ dry. Gauge \T\ hb site: 22g right hand. 14:27 Rey Awad, SANDY is Primary Nurse. sg 15:06 Keith Dodge PA is PHCP. [facility] 15:06 Jas Villanueva MD is Attending Physician. [facility] 16:09 Missed attempt(s): 20 gauge in right antecubital area. Bleeding controlled, band aid dh3 applied, catheter tip intact. 16:12 IV discontinued, intact, bleeding controlled, No redness/swelling at site. Pressure dh3 dressing applied. 16:42 Missed attempt(s): 20 gauge in right EJ. 22 gauge in left in right forearm. aj 17:05 Initial lab(s) drawn, by me, sent to lab. First set of blood cultures drawn by me. sv Missed attempt(s): 22 gauge in left wrist. Bleeding controlled, band aid applied, catheter tip intact. 17:15 Second set of blood cultures drawn by me. Inserted saline lock: 24 gauge in right sv wrist, using aseptic technique. ,using aseptic technique. diffusics Blood collected. Flushed right with 5 ml normal saline wrist. 19:16 CT Abd/Pelvis - W/Contrast In Process Unspecified. EDMS 19:27 Mariana Lima, SANDY is Primary Nurse. ak1 19:49 No provider procedures requiring assistance completed. ak1 20:44 Chest Pa And Lat (2 Views) XRAY In Process Unspecified. EDMS Administered Medications: 17:23 Not Given (Patient Refused): Zofran 4 mg IVP once; over 2 minutes sg 17:28 Drug: NS 0.9% 1000 ml Route: IV; Rate: 1 bolus; Site: right wrist; sg 19:41 Follow up: IV Status: Completed infusion ak1 17:30 Drug: Promethazine 12.5 mg Route: IVP; Site: right wrist; sg 19:41 Follow up: Response: No adverse reaction ak1 17:36 Drug: morphine 2 mg Route: IVP; Site: right wrist; sg 19:41 Follow up: Response: No adverse reaction ak1 Outcome: 21:05 Discharge ordered by . jyoti 21:18 Discharged to home via wheelchair. ludin 21:18 Condition: good 21:18 Discharge instructions given to patient, family, Instructed on discharge instructions, follow up and referral plans. medication usage, Demonstrated understanding of instructions, follow-up care, medications, Prescriptions given X 1. 21:22 Patient left the ED. aj Signatures: Dispatcher [employer] EDLida Beltran RN Rey Amor RN RN sg Myers, Amanda, RN RN aj Mickail, Joel, PA PA jmm Krenek, Amber, RN RN ak Richa Hathaway RN RN hb Herrera, Deanna [facility]
--- NOTE | 2018-10-11 21:06 | EDPHYS ---
Physician Documentation [facility] Name: Milan Weir Age: 78 yrs Sex: Female : 1940 Arrival Date: 10/11/2018 Time: 14:20 Bed 7 Private MD: ED Physician Jas Villanueva HPI: 10/11 15:38 This 78 yrs old Female presents to ER via EMS with complaints of Abdominal jmm Pain, Nausea/Vomiting. 15:38 The patient presents with abdominal pain in the epigastric area. Onset: The jmm symptoms/episode began/occurred 1 day(s) ago. The symptoms radiate to This is a 78 year old female with no chronic medical conditions that presents to the ED with complaints of episgastric abdominal pain, vomiting worsening after discharge from the the hospital this past Sunday. patient states symptoms returned yesterday. patient is concerned she may have pancreatitis. . Historical: - Allergies: 14:23 Tylenol-Codeine; hb - Home Meds: 14:46 Aricept Oral [Active]; Effexor Oral [Active]; Namenda Oral [Active]; sg - PMHx: 14:46 Alzheimers; COPD; Hernia; Pancreatitis; sg - Immunization history:: Adult Immunizations up to date. - Social history:: Smoking status: Patient/guardian denies using tobacco. - Ebola Screening: : No symptoms or risks identified at this time. ROS: 15:38 Constitutional: Negative for fever, chills, and weight loss, Cardiovascular: Negative jmm for chest pain, palpitations, and edema, Respiratory: Negative for shortness of breath, cough, wheezing, and pleuritic chest pain. 15:38 : Negative for injury, bleeding, discharge, and swelling, MS/Extremity: Negative for injury and deformity, Skin: Negative for injury, rash, and discoloration. 15:38 Abdomen/GI: Positive for abdominal pain, nausea and vomiting. 15:38 Back: Positive for radiated pain. 15:38 All other systems are negative. Exam: 15:38 Constitutional: This is a well developed, well nourished patient who is awake, alert, jmm and in no acute distress. Head/Face: atraumatic. Eyes: EOMI, no conjunctival erythema appreciated ENT: Moist Mucus Membranes Neck: Trachea midline, Supple Chest/axilla: Normal chest wall appearance and motion. Cardiovascular: Regular rate and rhythm. No edema appreciated Respiratory: Normal respirations, no respiratory distress appreciated 15:38 Skin: General appearance color normal MS/ Extremity: Moves all extremities, no obvious deformities appreciated, no edema noted to the lower extremities Neuro: Awake and alert, normal gait Psych: Behavior is normal, Mood is normal, Patient is cooperative and pleasant 15:38 Abdomen/GI: Inspection: abdomen appears normal, Bowel sounds: normal, Palpation: soft, moderate abdominal tenderness, in the epigastric area, right upper quadrant and left upper quadrant. 15:38 Back: ROM is normal. Vital Signs: 14:23 BP 128 / 72; Pulse 88; Resp 16; Temp 98.3; Pulse Ox 98% on R/A; Pain 8/10; hb 17:40 BP 116 / 70; Pulse 80; Resp 17; Temp 98.2; Pulse Ox 98% on R/A; sg 19:39 BP 126 / 90; Pulse 62; Resp 18; Temp 98.1(O); Pulse Ox 98% on R/A; ak1 21:18 BP 121 / 78; Pulse 87; Resp 18; Temp 98.1; Pulse Ox 99% on R/A; aj MDM: 15:38 Patient medically screened. [facility] 21:02 Data reviewed: vital signs, nurses notes. Counseling: I had a detailed discussion with jyoti the patient and/or guardian regarding: the historical points, exam findings, and any diagnostic results supporting the discharge/admit diagnosis, lab results, radiology results, the need for outpatient follow up, to return to the emergency department if symptoms worsen or persist or if there are any questions or concerns that arise at home. ED course: Patient is alert and non toxic in appearance in the ED. Patient has no signs of respiratory distress. On reevaluation patient stated having a cough and fever the night before. Patient is advised to follow up with Dr. Mancuso and is otherwise given strict return precautions. . 10/11 15:33 Order name: Basic Metabolic Panel; Complete Time: 18:45 [facility] 10/11 15:33 Order name: CBC with Diff; Complete Time: 18:08 [facility] 10/11 15:33 Order name: Creatinine for Radiology; Complete Time: 18:45 [facility] 10/11 15:33 Order name: Hepatic Function; Complete Time: 18:45 [facility] 10/11 15:33 Order name: Lipase; Complete Time: 18:45 [facility] 10/11 15:44 Order name: Procalcitonin; Complete Time: 18:08 [facility] 10/11 15:44 Order name: Lactate; Complete Time: 18:08 [facility] 10/11 15:44 Order name: Blood Culture Adult (2) [facility] 10/11 18:46 Order name: CT Abd/Pelvis - W/Contrast; Complete Time: 19:39 [facility] 10/11 20:10 Order name: Chest Pa And Lat (2 Views) XRAY; Complete Time: 20:59 [facility] 10/11 20:10 Order name: Flu; Complete Time: 20:53 [facility] 10/11 20:14 Order name: Urine Dipstick--Ancillary (enter results); Complete Time: 20:[address] [facility] 10/11 15:33 Order name: IV Saline Lock; Complete Time: 15:58 [facility] 10/11 15:33 Order name: Labs collected and sent; Complete Time: 15:58 [facility] 10/11 17:40 Order name: Labs - recollect needed; Complete Time: 20:12 10/11 19:39 Order name: PO challenge; Complete Time: 20:06 [facility] Administered Medications: 17:23 Not Given (Patient Refused): Zofran 4 mg IVP once; over 2 minutes sg 17:28 Drug: NS 0.9% 1000 ml Route: IV; Rate: 1 bolus; Site: right wrist; sg 19:41 Follow up: IV Status: Completed infusion ak1 17:30 Drug: Promethazine 12.5 mg Route: IVP; Site: right wrist; sg 19:41 Follow up: Response: No adverse reaction ak1 17:36 Drug: morphine 2 mg Route: IVP; Site: right wrist; sg 19:41 Follow up: Response: No adverse reaction ak1 Disposition: 10/11/18 21:05 Discharged to Home. Impression: Other abdominal pain, Cough. - Condition is Stable. - Discharge Instructions: Abdominal Pain, Adult, Cough, Adult. - Prescriptions for Zithromax Z- Andrea 250 mg Oral Tablet - take 1 tablet by ORAL route as directed for 5 days Day 1 - take two (2) tablets one time. Day 2, 3, 4 , 5 take one (1) tablet once daily.; 6 tablet. - Medication Reconciliation Form, Thank You Letter, Antibiotic Education, Prescription Opioid Use form. - Follow up: Private Physician; When: 2 - 3 days; Reason: Recheck today's complaints, Continuance of care, Re-evaluation by your physician. Addendum: 10/14/2018 07:46 Co-signature as Attending Physician, Jas Villanueva MD I agree with the assessment and k dr plan of care. Signatures: Dispatcher [employer] EDRey Lowe RN Jeannine Fofana RN RN aj Rittger, Kevin, MD MD kdr Mickail, Joel, PA PA jmm Baxter, Heather, RN RN Marsha Villa Amber RN ak1 Corrections: (The following items were deleted from the chart) 10/11 21:22 21:05 10/11/2018 21:05 Discharged to Home. Impression: Other abdominal pain; Cough. aj Condition is Stable. Forms are Medication Reconciliation Form, Thank You Letter, Antibiotic Education, Prescription Opioid Use. Follow up: Private Physician; When: 2 - 3 days; Reason: Recheck today's complaints, Continuance of care, Re-evaluation by your physician. jyoti
== END 2018-10-11 21:22 | disposition home or self-care (01) ==
LOC: ER 14:18
DX: R05 Cough (principal); J44.9 Chronic obstructive pulmonary disease, unspecified; Z88.5 Allergy status to narcotic agent
CPT/HCPCS: 36415; 71046; 74177; 80048; 80076; 81003; 83605; 83690; 84145; 85025; 87040 ×2; 87804 ×2; 96361; 96374; 96375; 99284; J2405; J2550; J7030; Q9967

== ENCOUNTER 2019-08-25 11:45 | Emergency (ER) | payer OTHER, BC ==
--- OUTSIDE RECORDS SUMMARY | 2019-08-25 11:48 | XMS REPORT ---
:1940 [facility] Address [address] [place] [address] Care Team Providers Name Role Phone IVONSAMARIAMIKHAIL Unavailable Unavailable Problems This patient has no known problems. Allergies, Adverse Reactions, Alerts This patient has no known allergies or adverse reactions. Medications This patient has no known medications. Results Test Description Test Time Test Comments Text Results Atomic Results Result Comments BLOOD UREA NTIROGEN (BUN) 2016-12-27 09:33:00 Test Item Value Reference Range Comments BUN (test code=BUN) 16.0 mg/dl 6.0-17.0 CREATININE, [id number] 09:33:00 Test Item Value Reference Range Comments Creatinine (test 1.0 mg/dl 0.4-1.2 code=CREA) EGFR if >60 (test code=EGFRAA) mL/min/1.73m\S\2 EGFR if Non- 57 Estimated Glomerular [place] (test mL/min/1.73m\S\2 Filtration Rate (eGFR) code=EGFRNA) Reference [...]
[2019-08-25] MEDS ORDERED: MORPHINE 2 MG/ML SYR ONE (12:41)
[2019-08-25] MEDS ORDERED: ONDANSETRON 4 MG/2 ML VIAL ONE (12:41)
[2019-08-25] MEDS ORDERED: NA CHLORIDE 0.9% 500 ML ONE (12:41)
[2019-08-25 13:09] LABS: Absolute Lymphocytes (CBC) 1.9 K/uL (0.7-4.9); Basophils % 0.7 % (0-1.3); Hematocrit 38.9 % (36.0-45.0); Lymphocytes % 27.8 % (15.3-44.8); RBC Red Blood Cell Count 4.23 M/uL (3.86-4.86)
[2019-08-25 13:20] LABS: ALT/SGPT 20 U/L (12-78); AST/SGOT 14 U/L (15-37); Albumin 3.3 g/dL (3.4-5.0); Alkaline Phosphatase 83 U/L (45-117); BUN Blood Urea Nitrogen 12 mg/dL (7-18); Bicarbonate 26 mmol/L (21-32); Bilirubin Direct < 0.1 mg/dL (0-0.2); Bilirubin Total 0.3 mg/dL (0.2-1.0); Glucose Level 93 mg/dL (74-106); Lipase 151 U/L (73-393); Potassium 3.6 mmol/L (3.5-5.1); Protein, Total 6.7 g/dL (6.4-8.2); Sodium Level 142 mmol/L (136-145)
[2019-08-25] MEDS ORDERED: MEPERIDINE HCL 25 MG/0.5 ML ONE (13:52)
--- NOTE | 2019-08-25 13:53 | RAD REPORT ---
EXAM DESCRIPTION: CTAbdomen Pelvis W Contrast - 08/25/2019 1:37 pm CLINICAL HISTORY: Abdominal pain. ABD PAIN COMPARISON: Abdomen Pelvis W Contrast dated 10/11/2018; Abdomen Pelvis W Contrast dated 10/07/2018 TECHNIQUE: Biphasic CT imaging of the abdomen and pelvis was performed with 100 ml non-ionic IV cont rast. All CT scans are performed using dose optimization technique as appropriate and may include automated exposure control or mA/KV adjustment according to patient size. FINDINGS: The lung bases are mildly emphysematous. Cholecystectomy clips are seen. The liver demonstrates no focal mass. The spleen, pancreas, adrenal g lands and kidneys are within normal limits. No bowel obstruction, free air, free fluid or abscess. Sigmoid diverticulosis coli without diverticul itis. The appendix is not identified as a discrete structure, however, no secondary findings of appen dicitis are identified. No evidence of significant lymphadenopathy. No suspicious bony findings. IMPRESSION: No acute intra-abdominal or pelvic finding. Sigmoid diverticulosis coli without diverticulitis.
--- NOTE | 2019-08-25 14:33 | EDPHYS ---
Physician Documentation [facility] Name: Milan Weir Age: 79 yrs Sex: Female : 1940 Arrival Date: 08/25/2019 Time: 11:48 Bed 23 Private MD: Nazario Mancuso ED Physician Jas Villanueva HPI: 08/25 12:34 This 79 yrs old Female presents to ER via Ambulatory with complaints of The kdr patinet has multiple c/o including back pain, incontenece of urine and stool, abdominal pain, pancreatitis. 12:34 The patient states that she has been unable to get into see her PCP. That her kdr pancreatitis is about to "tick off." She also c/o incontinent of urine and stool. All of these c/o are chronic but with apparent worsening over the last few days. She states that she has tried to get into see Dr. Garduno but has been unable to make an appointment. Onset: The symptoms/episode began/occurred suddenly, at an unknown time. Severity of symptoms: At their worst the symptoms were mild in the emergency department the symptoms are unchanged. The patient has experienced similar episodes in the past, multiple times, chronically. The patient has not recently seen a physician. Historical: - Allergies: 11:53 Tylenol-Codeine; sv 11:53 tramadol; sv - Home Meds: 11:53 Effexor Oral [Active]; Aricept Oral [Active]; Namenda Oral [Active]; sv - PMHx: 11:53 Alzheimers; COPD; Hernia; Pancreatitis; sv - Immunization history:: Flu vaccine status is unknown. - Social history:: Smoking status: unknown. - Ebola Screening: : No symptoms or risks identified at this time. ROS: 12:34 Constitutional: Negative for fever, chills, and weight loss, Eyes: Negative for injury, kdr pain, redness, and discharge, ENT: Negative for injury, pain, and discharge, Neck: Negative for injury, pain, and swelling, Cardiovascular: Negative for chest pain, palpitations, and edema, Respiratory: Negative for shortness of breath, cough, wheezing, and pleuritic chest pain, Back: Negative for injury and pain, : Negative for injury, bleeding, discharge, and swelling, MS/Extremity: Negative for injury and deformity, Skin: Negative for injury, rash, and discoloration, Neuro: Negative for headache, weakness, numbness, tingling, and seizure activity. Psych: Negative for depression, anxiety, suicide ideation, homicidal ideation, and hallucinations, Allergy/Immunology: Negative for hives, rash, and allergies, Endocrine: Negative for neck swelling, polydipsia, polyuria, polyphagia, and marked weight changes, Hematologic/Lymphatic: Negative for swollen nodes, abnormal bleeding, and unusual bruising. 12:34 Abdomen/GI: Positive for abdominal pain, nausea, vomiting, and diarrhea, Negative for black/tarry stool, rectal pain, rectal bleeding. Exam: 12:34 Constitutional: This is a well developed, well nourished patient who is awake, alert, kdr and in no acute distress. Head/Face: Normocephalic, atraumatic. Eyes: Pupils equal round and reactive to light, extra-ocular motions intact. Lids and lashes normal. Conjunctiva and sclera are non-icteric and not injected. Cornea within normal limits. Periorbital areas with no swelling, redness, or edema. Neck: Trachea midline, no thyromegaly or masses palpated, and no cervical lymphadenopathy. Supple, full range of motion without nuchal rigidity, or vertebral point tenderness. No Meningismus. Chest/axilla: Normal chest wall appearance and motion. Nontender with no deformity. No lesions are appreciated. Cardiovascular: Regular rate and rhythm with a normal S1 and S2. No gallops, murmurs, or rubs. Normal PMI, no JVD. No pulse deficits. Respiratory: Lungs have equal breath sounds bilaterally, clear to auscultation and percussion. No rales, rhonchi or wheezes noted. No increased work of breathing, no retractions or nasal flaring. Back: No spinal tenderness. No costovertebral tenderness. Full range of motion. Skin: Warm, dry with normal turgor. Normal color with no rashes, no lesions, and no evidence of cellulitis. MS/ Extremity: Pulses equal, no cyanosis. Neurovascular intact. Full, normal range of motion. Neuro: Awake and alert, GCS 15, oriented to person, place, time, and situation. Cranial nerves II-XII grossly intact. Motor strength 5/5 in all extremities. Sensory grossly intact. Cerebellar exam normal. Normal gait. Psych: Awake, alert, with orientation to person, place and time. Behavior, mood, and affect are within normal limits. 12:34 Abdomen/GI: Inspection: abdomen appears normal, scar(s), are noted in the epigastric area, umbilical area and suprapubic area, Bowel sounds: active, all quadrants, Palpation: soft, mild abdominal tenderness, in all quadrants. Vital Signs: 11:53 BP 152 / 108; Pulse 73; Resp 16; Temp 97.8; Pulse Ox 100% ; Weight 57.15 kg; Height 5 sv ft. 4 in. (162.56 cm); Pain 0/10; 14:02 BP 137 / 68; Pulse 80; Resp 18; Pulse Ox 100% on R/A; mg2 14:54 BP 138 / 66; Pulse 81; Resp 18; Pulse Ox 100% on R/A; rv 11:53 Body Mass Index 21.63 (57.15 kg, 162.56 cm) sv MDM: 14:32 Patient medically screened. kdr 14:34 Data reviewed: vital signs, nurses notes, lab test result(s), radiologic studies. kdr Counseling: I had a detailed discussion with the patient and/or guardian regarding: the historical points, exam findings, and any diagnostic results supporting the discharge/admit diagnosis, lab results, radiology results, the need for outpatient follow up. Physician consultation: Nazario Mancuso MD was called at 14:34, regarding consult, patient's condition, need to evaluate the patient as soon as possible, outpatient follow-up, in 2-3 days, next week. 08/25 12:15 Order name: Basic Metabolic Panel; Complete Time: 13:55 [facility] 08/25 12:15 Order name: CBC with Diff; Complete Time: 13:55 kdr 08/25 12:15 Order name: Creatinine for Radiology; Complete Time: 13:55 kdr 08/25 12:15 Order name: Hepatic Function; Complete Time: 13:55 kdr 08/25 12:15 Order name: Lipase; Complete Time: 13:55 [facility] 08/25 14:38 Order name: Urine Dipstick--Ancillary (enter results) 08/25 12:15 Order name: IV Saline Lock; Complete Time: 13:00 [facility] 08/25 12:15 Order name: Labs collected and sent; Complete Time: 13:00 [facility] 08/25 12:15 Order name: Urine Dipstick-Ancillary (obtain specimen); Complete Time: 14:32 kdr 08/25 12:21 Order name: CT Abd/Pelvis - IV Contrast Only; Complete Time: 14:26 kdr Administered Medications: 12:58 Drug: NS 0.9% 500 ml Route: IV; Rate: bolus; Site: right antecubital; mg2 12:59 Drug: morphine 1 mg Route: IVP; Site: right antecubital; mg2 14:10 Follow up: Response: No adverse reaction; RASS: Alert and Calm (0) mg2 12:59 Drug: Zofran 4 mg Route: IVP; Site: right antecubital; mg2 14:08 Follow up: Response: No adverse reaction; Pain is decreased mg2 14:11 Drug: Demerol - Meperidine 12.5 mg Route: IVP; Site: right antecubital; mg2 14:45 Follow up: Response: No adverse reaction; Marked relief of symptoms mg2 Disposition: 08/25/19 14:32 Discharged to Home. Impression: Abdominal and pelvic pain. - Condition is Stable. - Discharge Instructions: Abdominal Pain, Adult, [id number]-[id number], Cough, Adult, [id number]. - Prescriptions for Guaifenesin- DM 10-100 mg/5 mL Oral Liquid - take 5 milliliters by ORAL route every 8 hours As needed as needed; 100 milliliter. - Medication Reconciliation Form, Thank You Letter form. - Follow up: Nazario Mancuso MD; When: 2 - 3 days; Reason: If symptoms return, Further diagnostic work-up, Recheck today's complaints, Continuance of care, Re-evaluation by your physician. - Problem is an acute exacerbation. - Symptoms have improved. Signatures: Dispatcher [employer] EDMT Lida Castellon RN RN Jas Villanueva MD MD [facility] Hong Crockett RN RN mg2 Corrections: (The following items were deleted from the chart) 14:56 14:32 08/25/2019 14:32 Discharged to Home. Impression: Abdominal and pelvic pain. mg2 Condition is Stable. Forms are Medication Reconciliation Form, Thank You Letter, Antibiotic Education, Prescription Opioid Use. Follow up: Nazario Mancuso; When: 2 - 3 days; Reason: If symptoms return, Further diagnostic work-up, Recheck today's complaints, Continuance of care, Re-evaluation by your physician. Problem is an acute exacerbation. Symptoms have improved. kdr
--- NOTE | 2019-08-25 14:33 | ER ---
Nurse's Notes [facility] Name: Milan Weir Age: 79 yrs Sex: Female : 1940 Arrival Date: 08/25/2019 Time: 11:48 Bed 23 Private MD: Nazario Mancuso Diagnosis: Abdominal and pelvic pain Presentation: 08/25 11:48 Presenting complaint: Patient states: ran out of her medications, has been calling sv trying to get them refilled. Transition of care: patient was not received from another setting of care. Onset of symptoms was August 25, 2019. Risk Assessment: Do you want to hurt yourself or someone else? Patient reports no desire to harm self or others. Care prior to arrival: None. 11:48 Method Of Arrival: Ambulatory sv 11:48 Acuity: JARRETT 4 sv 13:06 Initial Sepsis Screen: Does the patient meet any 2 criteria? No. Patient's initial mg2 sepsis screen is negative. Does the patient have a suspected source of infection? No. Patient's initial sepsis screen is negative. Historical: - Allergies: 11:53 Tylenol-Codeine; sv 11:53 tramadol; sv - Home Meds: 11:53 Effexor Oral [Active]; Aricept Oral [Active]; Namenda Oral [Active]; sv - PMHx: 11:53 Alzheimers; COPD; Hernia; Pancreatitis; sv - Immunization history:: Flu vaccine status is unknown. - Social history:: Smoking status: unknown. - Ebola Screening: : No symptoms or risks identified at this time. Screenin:01 Abuse screen: Denies threats or abuse. Denies injuries from another. Nutritional mg2 screening: No deficits noted. Tuberculosis screening: No symptoms or risk factors identified. Fall Risk IV access (20 points). Assessment: 13:04 General: Appears in no apparent distress. comfortable, Behavior is calm, cooperative. mg2 Pain: Complains of pain in epigastric area Pain does not radiate. Pain currently is 5 out of 10 on a pain scale. Quality of pain is described as aching, Pain began gradually, Is intermittent. Neuro: Level of Consciousness is awake, alert, obeys commands, Oriented to person, place, time, situation. Cardiovascular: Capillary refill < 3 seconds Patient's skin is warm and dry. Respiratory: Airway is patent Respiratory effort is even, unlabored, Respiratory pattern is regular, symmetrical. GI: Reports lower abdominal pain, upper abdominal pain. : No signs and/or symptoms were reported regarding the genitourinary system. EENT: No signs and/or symptoms were reported regarding the EENT system. Derm: Skin is intact, is healthy with good turgor, Skin is pink, warm \T\ dry. normal. Musculoskeletal: Circulation, motion, and sensation intact. Capillary refill < 3 seconds. 14:55 Reassessment: Patient appears in no apparent distress at this time. Patient states mg2 feeling better. Vital Signs: 11:53 BP 152 / 108; Pulse 73; Resp 16; Temp 97.8; Pulse Ox 100% ; Weight 57.15 kg; Height 5 sv ft. 4 in. (162.56 cm); Pain 0/10; 14:02 BP 137 / 68; Pulse 80; Resp 18; Pulse Ox 100% on R/A; mg2 14:54 BP 138 / 66; Pulse 81; Resp 18; Pulse Ox 100% on R/A; rv 11:53 Body Mass Index 21.63 (57.15 kg, 162.56 cm) sv ED Course: 11:48 Patient arrived in ED. ag5 11:48 Jas Villanueva MD is Attending Physician. kdr 11:49 Nazario Mancuso MD is Private Physician. ag5 11:52 Triage completed. sv 11:53 Arm band placed on. sv 12:23 Radiology exam delayed due to lab results not completed at this time. (BUN/Creatinine). sw 12:35 Hong Crockett, RN is Primary Nurse. mg2 13:00 No provider procedures requiring assistance completed. Inserted saline lock: 20 gauge mg2 in right antecubital area, using aseptic technique. Blood collected. 13:01 Patient has correct armband on for positive identification. mg2 13:38 CT Abd/Pelvis - IV Contrast Only In Process Unspecified. EDMS 14:31 Nazario Mancuso MD is Referral Physician. kdr 14:55 IV discontinued, intact, bleeding controlled, No redness/swelling at site. Pressure mg2 dressing applied. Administered Medications: 12:58 Drug: NS 0.9% 500 ml Route: IV; Rate: bolus; Site: right antecubital; mg2 12:59 Drug: morphine 1 mg Route: IVP; Site: right antecubital; mg2 14:10 Follow up: Response: No adverse reaction; RASS: Alert and Calm (0) mg2 12:59 Drug: Zofran 4 mg Route: IVP; Site: right antecubital; mg2 14:08 Follow up: Response: No adverse reaction; Pain is decreased mg2 14:11 Drug: Demerol - Meperidine 12.5 mg Route: IVP; Site: right antecubital; mg2 14:45 Follow up: Response: No adverse reaction; Marked relief of symptoms mg2 Outcome: 14:32 Discharge ordered by . kdr 14:55 Discharged to home ambulatory, with family. mg2 14:55 Condition: stable 14:55 Discharge instructions given to patient, family, Instructed on discharge instructions, follow up and referral plans. medication usage, Demonstrated understanding of instructions, Prescriptions given X 1. 14:56 Patient left the ED. mg2 Signatures: Dispatcher [employer] EDLida Beltran RN RN Jas Villanueva MD MD kdr Warren, Shannon sw Gardose, Michele, RN RN mg2 Wilbert House RN RN rv Gaskin, Ajare ag5 Corrections: (The following items were deleted from the chart) 11:53 11:48 Acuity: JARRETT 5 sv sv
[2019-08-25 15:05] VITALS: TEMP 97.8; O2SAT 100
[2019-08-25 15:08] VITALS: BP 138/66
[2019-08-25 15:11] LABS: Urine Blood 1+ (NEG); Urine Glucose NEGATIVE (NEG); Urine Protein NEGATIVE (NEG)
== END 2019-08-25 14:56 | disposition home or self-care (01) ==
LOC: ER 11:45
DX: R10.2 Pelvic and perineal pain (principal); J44.9 Chronic obstructive pulmonary disease, unspecified; K85.90 Acute pancreatitis without necrosis or infection, unspecified; G30.9 Alzheimer's disease, unspecified; F02.80 Dementia in other diseases classified elsewhere, unspecified severity, without behavioral disturbance, psychotic disturbance, mood disturbance, and anxiety; Z88.5 Allergy status to narcotic agent; Z88.6 Allergy status to analgesic agent
CPT/HCPCS: 85025; 80048; 36415; 80076; 81003; 83690; 74177; 96375; 96374; 99284; Q9967; J2270; J2175; J7040; J2405

== ENCOUNTER 2019-12-04 08:42 | Emergency (ER) | payer OTHER, BC ==
--- OUTSIDE RECORDS SUMMARY | 2019-12-04 08:44 | XMS REPORT ---
:1940 [facility] Address [address] [place] [address] Care Team Providers Name Role Phone IVONSAMARIAMIKHAIL [...] BUN (test code=BUN) 16.0 mg/dl 6.0-17.0 CREATININE, [id number] 09:33:00 Test Item Value Reference Range Comments Creatinine (test 1.0 mg/dl 0.4-1.2 code=CREA) EGFR if >60 (test code=EGFRAA) mL/min/1.73m\S\2 EGFR if Non- 57 Estimated Glomerular [place] (test mL/min/1.73m\S\2 Filtration Rate (eGFR) code=EGFRNA) Reference [...]
[2019-12-04] MEDS ORDERED: TETRACAINE HCL 0.5% 4ML OPTH ONE (08:56)
[2019-12-04] MEDS ORDERED: METOCLOPRAMIDE 10 MG/2mL INJ ONE (09:24)
[2019-12-04] MEDS ORDERED: MORPHINE 4 MG/ML SYR ONE (09:25)
[2019-12-04] MEDS ORDERED: NA CHLORIDE 0.9% 1,000 ML ONE (09:25)
[2019-12-04] MEDS ORDERED: ONDANSETRON 4 MG/2 ML VIAL ONE (09:25)
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
[2019-12-04 09:46] LABS: Absolute Lymphocytes (CBC) 1.5 K/uL (0.7-4.9); Basophils % 0.7 % (0-1.3); Lymphocytes % 23.8 % (15.3-44.8); MPV 7.7 fL (7.6-11.3); RBC Red Blood Cell Count 4.68 M/uL (3.86-4.86)
[2019-12-04] MEDS ORDERED: PROMETHAZINE INJ 25 MG/ML AMP ONE (09:55)
[2019-12-04 10:27] LABS: Albumin 3.3 g/dL (3.4-5.0); Bilirubin Total 0.7 mg/dL (0.2-1.0); C-Reactive Protein 5.05 mg/L (<3.00); Potassium 3.9 mmol/L (3.5-5.1); Protein, Total 7.1 g/dL (6.4-8.2)
[2019-12-04 10:47] LABS: Urine Blood TRACE (NEG); Urine Glucose NEGATIVE (NEG); Urine Protein NEGATIVE (NEG); Urine Specific Gravity 1.015 (1.005-1.030)
[2019-12-04] MEDS ORDERED: DIPHENHYDRAMINE 50 MG/ML VIAL ONE (10:48)
[2019-12-04] MEDS ORDERED: KETOROLAC 30 MG/ML INJ ONE (10:48)
--- NOTE | 2019-12-04 11:54 | RAD REPORT ---
EXAM DESCRIPTION: CT - Abdomen Pelvis W Contrast - 12/04/2019 11:43 am CLINICAL HISTORY: ABD PAIN, history of pancreatitis COMPARISON: Abdomen Pelvis W Contrast dated 08/25/2019 TECHNIQUE: Biphasic, helical CT imaging of the abdomen and pelvis was performed following 100 ml non -ionic IV contrast. Oral contrast was given. All CT scans are performed using dose optimization technique as appropriate and may include automated exposure control or mA/KV adjustment according to patient size. FINDINGS: No suspicious findings in the lung bases. Bilateral breast implants noted. No pericardial thickening or effusion. Liver and spleen show no parenchymal abnormalities. No pancreatic mass or peripancreatic stranding. N o CT findings of pancreatitis. Gallbladder is absent. Biliary tree dilatation is present. Biliary dil atation is increased slightly from August 2019. This is still probably the Bernie effect that ca n be seen following cholecystectomy. Duct stones can be occult. Symmetric renal function is seen with no hydronephrosis or suspicious renal mass. No pyelonephritis o r acute parenchymal process. No bladder abnormalities. No adrenal abnormalities. Uterus is absent. No ovarian abnormality seen. No dilated bowel loops or bowel wall thickening. Sigmoid diverticulosis is present, mild for age with no diverticulitis findings. Appendix is not clearly defined and is potentially surgically absent giv en the hysterectomy changes. No acute finding in the right lower quadrant. No free air, free fluid or inflammatory stranding. No hernia, mass or bulky lymphadenopathy. No acute bone finding. Schmorl's node is seen in the superior endplate L5. Arterial calcifications ar e present without an acute arterial process seen. IMPRESSION: No pancreatitis or acute peripancreatic process. Gallbladder is absent. Biliary tree is dilated and slightly increased compared to August 2019. This may still be the reservoir effect that can occur after a cholecystectomy. However, duct stones can be occult. Correlation is needed with any clinical or laboratory biliary obs tructive findings. No acute or GI findings.
--- NOTE | 2019-12-04 12:05 | ER ---
Nurse's Notes [facility] Name: Milan Weir Age: 79 yrs Sex: Female : 1940 Arrival Date: 12/04/2019 Time: 08:50 Bed 19 Private MD: Diagnosis: Conjunctivitis Presentation: 12/03 08:39 Chief complaint: EMS states: pt having severe right eye pain x 1 week but got worse tw2 last night and this morning, states it is more severe this morning and she has a headache on the RIGHT side , n a\\T\\o x4, ambulatory on scene, no aphasia, no weakness, normal gait, vs stable she says her normal systolic is elevated. Coronavirus screen: Patient denies fever greater than 100.4F, cough, shortness of breath, or difficulty breathing. Proceed with normal triage process. Ebola Screen: Patient denies travel to an Ebola-affected area in the 21 days before illness onset. Mechanism of Injury: No Mechanism of Injury. The patient denies any loss of vision. Initial Sepsis Screen: Does the patient meet any 2 criteria? No. Patient's initial sepsis screen is negative. Does the patient have a suspected source of infection? No. Patient's initial sepsis screen is negative. Risk Assessment: Do you want to hurt yourself or someone else? Patient reports no desire to harm self or others. 08:39 Method Of Arrival: EMS: [facility] tw2 08:39 Acuity: JARRETT 3 tw2 08:50 Onset of symptoms was December 04, 2019. tw2 Triage Assessment: 08:39 General: Appears uncomfortable, slender, well groomed, Behavior is cooperative, tw2 anxious. Pain: Complains of pain in forehead, right eye, right cheek, right ear and right rastafari. Historical: - Allergies: 09:07 tramadol; tw2 09:07 Tylenol-Codeine; tw2 - Home Meds: 09:07 Namenda Oral [Active]; Effexor Oral [Active]; Aricept Oral [Active]; tw2 - PMHx: 09:07 Alzheimers; COPD; Hernia; Pancreatitis; tw2 - Immunization history:: Adult Immunizations. - Social history:: Smoking status: Patient/guardian denies using alcohol, street drugs. Screenin:23 Abuse screen: Denies threats or abuse. Nutritional screening: No deficits noted. tw2 Tuberculosis screening: No symptoms or risk factors identified. Fall Risk None identified. Assessment: 08:55 General: Appears uncomfortable, slender, Behavior is cooperative, anxious. Pain: tw2 Complains of pain in face and right rastafari and right ear and right cheek and right eye and forehead. Neuro: Level of Consciousness is awake, alert, obeys commands, Oriented to person, place, time, situation. Cardiovascular: Heart tones S1 S2 Patient's skin is warm and dry. Respiratory: Airway is patent Respiratory effort is even, unlabored, Respiratory pattern is regular, symmetrical, Breath sounds are clear bilaterally. GI: Abdomen is flat, Bowel sounds present X 4 quads. Reports nausea. : No signs and/or symptoms were reported regarding the genitourinary system. EENT: Reports right eye pain and drainage and "pain down into my sinuses too, i garden a lot and i am outside". Derm: No signs and/or symptoms reported regarding the dermatologic system. Musculoskeletal: Range of motion: intact in all extremities. 09:55 Reassessment: pt c/o "my nausea is getting worse and this belching and my stomach hurts tw2 phenergan is the only thing that helps when it gets this bad and i think it might be my pancreatitis", provider notified. medicated as ordered. Patient states symptoms have not improved. 10:21 Reassessment: Patient and/or family updated on plan of care and expected duration. Pain tw2 level reassessed. Patient is alert, oriented x 3, equal unlabored respirations, skin warm/dry/pink. pt reports nausea and belching has decreased at this time. Patient states feeling better. 10:50 Reassessment: Patient and/or family updated on plan of care and expected duration. Pain tw2 level reassessed. Patient is alert, oriented x 3, equal unlabored respirations, skin warm/dry/pink. pt c/o abdominal pain at this time, provider notified. 11:07 Reassessment: dr. austin at bedside at this time. tw2 12:30 Reassessment: Patient and/or family updated on plan of care and expected duration. Pain tw2 level reassessed. Patient is alert, oriented x 3, equal unlabored respirations, skin warm/dry/pink. 13:55 Reassessment: Patient appears in no apparent distress at this time. Patient and/or tw2 family updated on plan of care and expected duration. Pain level reassessed. Patient is alert, oriented x 3, equal unlabored respirations, skin warm/dry/pink. Patient states feeling better. 14:27 Reassessment: Patient appears in no apparent distress at this time. Patient and/or tw2 family updated on plan of care and expected duration. Pain level reassessed. Patient is alert, oriented x 3, equal unlabored respirations, skin warm/dry/pink. Vital Signs: 08:39 BP 145 / 102; Pulse 89; Resp 17; Temp 97.6(TE); Pulse Ox 97% on R/A; Weight 52.16 kg tw2 (R); Height 5 ft. 4 in. (162.56 cm) (R); Pain 8/10; 09:08 BP 130 / 84; Pulse 85; Resp 17; Pulse Ox 97% on R/A; tw2 10:10 BP 142 / 82; Pulse 71; Resp 14; Pulse Ox 95% on 2 lpm NC; tw2 11:10 BP 136 / 68; Pulse 67; Resp 17; Pulse Ox 98% on R/A; tw2 12:10 BP 131 / 70; Pulse 79; Resp 17; Pulse Ox 99% on R/A; tw2 13:10 BP 146 / 96; Pulse 68; Resp 17; Pulse Ox 96% on R/A; tw2 13:44 BP 146 / 96; Pulse 72; Resp 17; Pulse Ox 95% on R/A; tw2 14:20 BP 137 / 82; Pulse 66; Resp 17; Pulse Ox 95% on R/A; tw2 08:39 Body Mass Index 19.74 (52.16 kg, 162.56 cm) tw2 08:39 in my right eye tw2 ED Course: 08:39 Arm band placed on. tw2 08:49 Bed in low position. Call light in reach. Side rails up X2. school lunch monitor on. Pulse tw2 ox on. NIBP on. Lights dimmed. Warm blanket given. Pillow given. Head of bed lowered. 08:50 Patient arrived in ED. tw2 08:50 Jose David Cruz MD is Attending Physician. ma2 09:04 Triage completed. tw2 09:10 Helen Lazo RN is Primary Nurse. tw2 09:21 CT Head Brain wo Cont In Process Unspecified. EDMS 09:37 Initial lab(s) drawn, by me, sent to lab. Inserted saline lock: 20 gauge in right dh3 antecubital area, using aseptic technique. Blood collected. 11:44 CT Abd/Pelvis - IV Contrast Only In Process Unspecified. EDMS 12:04 Liberty Patel MD is Hospitalizing Provider. ma2 13:46 Michael Song MD is Referral Physician. ma2 13:54 Awaiting transportation. tw2 14:19 No provider procedures requiring assistance completed. IV discontinued, intact, tw2 bleeding controlled, No redness/swelling at site. Pressure dressing applied. Administered Medications: 09:40 Drug: NS 0.9% 1000 ml Route: IV; Rate: 1 bolus; Site: right antecubital; tw2 10:45 Follow up: Response: No adverse reaction; IV Status: Completed infusion; IV Intake: tw2 1000ml 09:40 Drug: Zofran (Ondansetron) 4 mg Route: IVP; Site: right antecubital; tw2 09:55 Follow up: Response: No adverse reaction; No change in condition; Nausea unchanged tw2 09:42 Drug: morphine 4 mg Route: IVP; Site: right antecubital; tw2 10:50 Follow up: Response: No adverse reaction; Pain is unchanged, physician notified tw2 09:44 Drug: Reglan 10 mg Route: IVP; Site: right antecubital; tw2 11:09 Follow up: Response: No adverse reaction tw2 09:59 Drug: Phenergan 6.25 mg Route: IVP; Site: right antecubital; tw2 11:08 Follow up: Response: No adverse reaction; Nausea is decreased tw2 11:00 Drug: Benadryl 50 mg Route: IVP; Site: right antecubital; tw2 12:26 Follow up: Response: No adverse reaction tw2 11:05 Drug: TORadol 30 mg Route: IVP; Site: right antecubital; tw2 13:58 Follow up: Response: No adverse reaction; Pain is decreased tw2 12:23 Drug: Pepcid 20 mg Route: IVP; Site: right antecubital; tw2 13:58 Follow up: Response: No adverse reaction tw2 12:25 Drug: Dilaudid 1 mg Route: IVP; Site: right antecubital; tw2 13:30 Follow up: Response: No adverse reaction; Pain is decreased; RASS: Alert and Calm (0) tw2 12:26 Drug: GI Cocktail without - (Maalox Suspension 30 ml, Lidocaine Liquid 2 % 15 tw2 ml) Route: PO; 13:58 Follow up: Response: No adverse reaction tw2 Intake: 10:45 IV: 1000ml; Total: 1000ml. tw2 Outcome: 12:04 Decision to Hospitalize by Provider. ma2 13:47 Discharge ordered by . ma2 14:19 Discharged to home via wheelchair. tw2 14:19 Condition: stable 14:19 Discharge instructions given to patient, Instructed on discharge instructions, follow up and referral plans. medication usage, Demonstrated understanding of instructions, follow-up care, medications, Prescriptions given X 2. 14:37 Patient left the ED. tw2 Signatures: Dispatcher [employer] EDHelen Lujan RN RN tw2 Mariah Maravilla 3 Jose David Cruz MD MD mo2
--- NOTE | 2019-12-04 12:05 | EDPHYS ---
Physician Documentation [facility] Name: Milan Weir Age: 79 yrs Sex: Female : 1940 Arrival Date: 12/04/2019 Time: 08:50 Bed 19 Private MD: ED Physician Jose David Cruz HPI: 12/03 11:42 This 79 yrs old Female presents to ER via EMS with complaints of Eye Pain, ma2 Drainage, Headache > 24hrs Old. 11:44 Duration: the symptoms are continuous. Associated signs and symptoms: Pertinent ma2 negatives: chills, fever, headache. Severity of symptoms: At their worst the symptoms were moderate in the emergency department the symptoms are unchanged. The patient has not experienced similar symptoms in the past. here with gradual headache and right eye pain, and upper abdominal pain that is constant and vomiting . Historical: - Allergies: 09:07 tramadol; tw2 09:07 Tylenol-Codeine; tw2 - Home Meds: 09:07 Namenda Oral [Active]; Effexor Oral [Active]; Aricept Oral [Active]; tw2 - PMHx: 09:07 Alzheimers; COPD; Hernia; Pancreatitis; tw2 - Immunization history:: Adult Immunizations. - Social history:: Smoking status: Patient/guardian denies using alcohol, street drugs. ROS: 11:44 Constitutional: Negative for fever, chills, and weight loss. ma2 11:44 All other systems are negative. ma2 Exam: 11:44 Visual Acuity: Visual acuity is within normal limits. ma2 11:44 Constitutional: This is a well developed, well nourished patient who is awake, alert, and in no acute distress. Head/Face: Normocephalic, atraumatic.no temporal artry tenderness Eyes: Pupils equal round and reactive to light, extra-ocular motions intact. Lids and lashes normal. Conjunctiva and sclera are non-icteric and not injected. Cornea within normal limits. Periorbital areas with no swelling, redness, or edema.right eye mildly red however IOP is 15 mmhg in right eye, no tenderness or edema around eye, and visual achuity is 20/20 ENT: Nares patent. No nasal discharge, no septal abnormalities noted. Tympanic membranes are normal and external auditory canals are clear. Oropharynx with no redness, swelling, or masses, exudates, or evidence of obstruction, uvula midline. Mucous membranes moist. Neck: Trachea midline, no thyromegaly or masses palpated, and no cervical lymphadenopathy. Supple, full range of motion without nuchal rigidity, or vertebral point tenderness. No Meningismus. Chest/axilla: Normal chest wall appearance and motion. Nontender with no deformity. No lesions are appreciated. Cardiovascular: Regular rate and rhythm with a normal S1 and S2. No gallops, murmurs, or rubs. Normal PMI, no JVD. No pulse deficits. Respiratory: Lungs have equal breath sounds bilaterally, clear to auscultation and percussion. No rales, rhonchi or wheezes noted. No increased work of breathing, no retractions or nasal flaring. Abdomen/GI: Soft, non-tender, with normal bowel sounds. No distension or tympany. No guarding or rebound. No evidence of tenderness throughout. Back: No spinal tenderness. No costovertebral tenderness. Full range of motion. Skin: Warm, dry with normal turgor. Normal color with no rashes, no lesions, and no evidence of cellulitis. MS/ Extremity: Pulses equal, no cyanosis. Neurovascular intact. Full, normal range of motion. Neuro: Awake and alert, GCS 15, oriented to person, place, time, and situation. Cranial nerves II-XII grossly intact. Motor strength 5/5 in all extremities. Sensory grossly intact. Cerebellar exam normal. Normal gait. Vital Signs: 08:39 BP 145 / 102; Pulse 89; Resp 17; Temp 97.6(TE); Pulse Ox 97% on R/A; Weight 52.16 kg tw2 (R); Height 5 ft. 4 in. (162.56 cm) (R); Pain 8/10; 09:08 BP 130 / 84; Pulse 85; Resp 17; Pulse Ox 97% on R/A; tw2 10:10 BP 142 / 82; Pulse 71; Resp 14; Pulse Ox 95% on 2 lpm NC; tw2 11:10 BP 136 / 68; Pulse 67; Resp 17; Pulse Ox 98% on R/A; tw2 12:10 BP 131 / 70; Pulse 79; Resp 17; Pulse Ox 99% on R/A; tw2 13:10 BP 146 / 96; Pulse 68; Resp 17; Pulse Ox 96% on R/A; tw2 13:44 BP 146 / 96; Pulse 72; Resp 17; Pulse Ox 95% on R/A; tw2 14:20 BP 137 / 82; Pulse 66; Resp 17; Pulse Ox 95% on R/A; tw2 08:39 Body Mass Index 19.74 (52.16 kg, 162.56 cm) tw2 08:39 in my right eye tw2 MDM: 08:52 Patient medically screened. ma2 12:03 Differential diagnosis: Ultraviolet keratitis in intractable headache/n/v. Data ma2 reviewed: vital signs, nurses notes. Counseling: I had a detailed discussion with the patient and/or guardian regarding: the historical points, exam findings, and any diagnostic results supporting the discharge/admit diagnosis, the presence of at least one elevated blood pressure reading (>120/80) during this emergency department visit, the need for outpatient follow up. Response to treatment: the patient's symptoms have mildly improved after treatment. 13:45 ED course: headache is resolved and patient want to go home . [facility] 12/03 08:52 Order name: CBC with Diff; Complete Time: 11:02 [facility] 12/03 08:52 Order name: CMP; Complete Time: 10:37 [facility] 12/03 08:52 Order name: ESR; Complete Time: 11:02 [facility] 12/03 08:52 Order name: CRP; Complete Time: 10:37 [facility] 12/03 10:39 Order name: Lipase; Complete Time: 11:02 [facility] 12/03 10:42 Order name: Urine Dipstick--Ancillary (enter results); Complete Time: 11:02 [facility] 12/03 08:52 Order name: CT Head Brain wo Cont; Complete Time: 10:21 wi2 12/03 11:27 Order name: CT Abd/Pelvis - IV Contrast Only; Complete Time: 12:00 [facility] 12/03 08:52 Order name: Urine Dipstick-Ancillary (obtain specimen); Complete Time: 10:37 [facility] 12/03 09:12 Order name: IV Start; Complete Time: 09:41 tw2 Administered Medications: 09:40 Drug: NS 0.9% 1000 ml Route: IV; Rate: 1 bolus; Site: right antecubital; tw2 10:45 Follow up: Response: No adverse reaction; IV Status: Completed infusion; IV Intake: tw2 1000ml 09:40 Drug: Zofran (Ondansetron) 4 mg Route: IVP; Site: right antecubital; tw2 09:55 Follow up: Response: No adverse reaction; No change in condition; Nausea unchanged tw2 09:42 Drug: morphine 4 mg Route: IVP; Site: right antecubital; tw2 10:50 Follow up: Response: No adverse reaction; Pain is unchanged, physician notified tw2 09:44 Drug: Reglan 10 mg Route: IVP; Site: right antecubital; tw2 11:09 Follow up: Response: No adverse reaction tw2 09:59 Drug: Phenergan 6.25 mg Route: IVP; Site: right antecubital; tw2 11:08 Follow up: Response: No adverse reaction; Nausea is decreased tw2 11:00 Drug: Benadryl 50 mg Route: IVP; Site: right antecubital; tw2 12:26 Follow up: Response: No adverse reaction tw2 11:05 Drug: TORadol 30 mg Route: IVP; Site: right antecubital; tw2 13:58 Follow up: Response: No adverse reaction; Pain is decreased tw2 12:23 Drug: Pepcid 20 mg Route: IVP; Site: right antecubital; tw2 13:58 Follow up: Response: No adverse reaction tw2 12:25 Drug: Dilaudid 1 mg Route: IVP; Site: right antecubital; tw2 13:30 Follow up: Response: No adverse reaction; Pain is decreased; RASS: Alert and Calm (0) tw2 12:26 Drug: GI Cocktail without - (Maalox Suspension 30 ml, Lidocaine Liquid 2 % 15 tw2 ml) Route: PO; 13:58 Follow up: Response: No adverse reaction tw2 Disposition: 12/04/19 13:47 Discharged to Home. Impression: Conjunctivitis. - Condition is Stable. - Discharge Instructions: Bacterial Conjunctivitis. - Prescriptions for Gentamicin 0.3 % Ophthalmic Drops - instill 1 drop by OPHTHALMIC route every 4 hours for 7 days; 1 bottle. Reglan 10 mg Oral Tablet - take 1 tablet by ORAL route every 6 hours . take 30 minutes before meals and at bedtime; 100 tablet. - Medication Reconciliation Form, Thank You Letter, Antibiotic Education, Prescription Opioid Use form. - Follow up: Michael Song MD; When: Tomorrow; Reason: Continuance of care. Signatures: Dispatcher [employer] Helen Jackman RN RN tw2 Essie Reed mt, Mohammad, MD MD ma2 Corrections: (The following items were deleted from the chart) 13:29 12:04 Hospitalization Ordered by Liberty Patel MD for Observation. Preliminary diagnosis mt is Headache. Bed requested for Telemetry/MedSurg (observation). Status is Observation. Condition is Stable. Problem is new. Symptoms are unchanged. ma2 13:46 13:29 12/04/2019 12:04 Hospitalization Ordered by Liberty Patel MD for Observation. ma2 Preliminary diagnosis is Headache. Bed requested for Telemetry/MedSurg (observation). Status is Observation. Condition is Stable. Problem is new. Symptoms are unchanged. mt 14:37 13:47 12/04/2019 13:47 Discharged to Home. Impression: Conjunctivitis. Condition is tw2 Stable. Prescriptions for Augmentin 875-125 mg Oral Tablet - take 1 tablet by ORAL route every 12 hours for 10 days; 20 tablet, Gentamicin 0.3 % Ophthalmic Drops - instill 1 drop by OPHTHALMIC route every 4 hours for 7 days; 1 bottle, Reglan 10 mg Oral Tablet - take 1 tablet by ORAL route every 6 hours take 30 minutes before meals and at bedtime; 20 tablet, Pepcid 20 mg Oral Tablet - take 1 tablet by ORAL route once daily for 10 days; 10 tablet. and Forms are Medication Reconciliation Form, Thank You Letter, Antibiotic Education, Prescription Opioid Use. Follow up: Michael Song; When: Tomorrow; Reason: Continuance of care. ma2
[2019-12-04] MEDS ORDERED: HYDROMORPHONE HCL 1 MG/ML INJ ONE (12:15)
[2019-12-04] MEDS ORDERED: MAGNE/ALUM HYDROXD 30 ML UCUP ONE (12:15)
[2019-12-04] MEDS ORDERED: FAMOTIDINE 20 MG/2 ML VIAL IV ONE (12:15)
[2019-12-04] MEDS ORDERED: LIDOCAINE VISCOUS 2% SOLN 15 ML UDC ONE (12:16)
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
[2019-12-04 14:53] VITALS: O2SAT 95
[2019-12-04 14:55] VITALS: BP 137/82
== END 2019-12-04 14:37 | disposition home or self-care (01) ==
LOC: ER 08:42 → ERHOLD 12:48 → UNDOADMOB 12:48 → ER 14:37
DX: H10.9 Unspecified conjunctivitis (principal); J44.9 Chronic obstructive pulmonary disease, unspecified; G30.9 Alzheimer's disease, unspecified; F02.80 Dementia in other diseases classified elsewhere, unspecified severity, without behavioral disturbance, psychotic disturbance, mood disturbance, and anxiety; Z88.6 Allergy status to analgesic agent; Z88.5 Allergy status to narcotic agent
CPT/HCPCS: 96361; 85025; 36415; 85652; 81003; 83690; 80053; 86140; 70450; 74177; 96375; 96374; 99285; Q9967; J2765; J2550; J1200; J1170; J7030; J2405

== ENCOUNTER 2019-12-10 | Emergency (ER) | payer OTHER, BC | END 2019-12-10 22:40 | disposition home or self-care (01) | CPT/HCPCS: 93005; 85025; 80048; 36415; 80076; 83690; 70450; 74177; 96375; 96374; 99284; Q9967; J2550; J2175; J2405 ==

== ENCOUNTER 2019-12-14 09:30 | Emergency (ER) | payer OTHER, BC ==
--- OUTSIDE RECORDS SUMMARY | 2019-12-14 09:32 | XMS REPORT ---
:1940 Author Organization [facility] t Address [address] [place] [address] Care Team Providers Name Role Phone SINGSON Unavailable Unavailable Problems This patient has no known problems. Allergies, Adverse Reactions, Alerts This patient has no known allergies or adverse reactions. Medications This patient has no known medications. Results Test Description Test Time Test Comments Text Results Atomic Results Result Comments BLOOD UREA NTIROGEN (BUN) 2016-12-27 09:33:00 Test Item Value Reference Range Comments BUN (test code = BUN) 16.0 mg/dl 6.0-17.0 CREATININE, [id number] 09:33:00 Test Item Value Reference Range Comments Creatinine (test code = 1.0 mg/dl 0.4-1.2 CREA) EGFR if >60 (test code = EGFRAA) mL/min/1.73m\S\2 EGFR if Non- 57 Estimated Gl omerular Bhutanese (test code = mL/min/1.73m\S\2 Filtratio n Rate (eGFR) EGFRNA) Reference Interv als Decision Points for 18 years and older and average body mass: >= 60 Araiza s not exclude kidney d isease. 30 - 59 Suggests moderate chronic kidney disease and indic ates the need for further investigation i ncluding assessment of pr oteinuria and cardiovascular f actors. < 30 Usually indicates a need for referral for ass essment and management of ch ronic kidney failure.
[2019-12-14] MEDS ORDERED: MEPERIDINE HCL 25 MG/0.5 ML ONE (10:16)
[2019-12-14] MEDS ORDERED: PROMETHAZINE INJ 25 MG/ML AMP ONE (10:16)
[2019-12-14] MEDS ORDERED: NA CHLORIDE 0.9% 1,000 ML ONE (10:17)
[2019-12-14] MEDS ORDERED: AMOX/K CLAV 875 MG TAB ONE (10:17)
[2019-12-14 10:29] LABS: Absolute Lymphocytes (CBC) 1.6 K/uL (0.7-4.9); Basophils % 0.8 % (0-1.3); Lymphocytes % 28.8 % (15.3-44.8); MPV 7.4 fL (7.6-11.3); RBC Red Blood Cell Count 4.77 M/uL (3.86-4.86)
[2019-12-14 10:44] LABS: Albumin 3.4 g/dL (3.4-5.0); Bilirubin Total 0.4 mg/dL (0.2-1.0); Potassium 3.6 mmol/L (3.5-5.1); Protein, Total 7.2 g/dL (6.4-8.2)
--- NOTE | 2019-12-14 11:38 | RAD REPORT ---
EXAM DESCRIPTION: CTOrbits W/Cont12/14/2019 11:15 am CLINICAL HISTORY: Right eye pain and redness COMPARISON: December 04, 2019 TECHNIQUE: Computed axial tomography of the sinuses were obtained with coronal and sagittal reconstr uction. 50 cc Isovue [address] scans are performed using dose optimization technique as appropriate and may include automated exposure control or mA/KV adjustment according to patient size. FINDINGS: The globes are normal in size and density. Extra-ocular muscles normal in size and density. Optic nerves are normal caliber. Superior ophthalmic vein normal size. Periorbital fat is clear. Punctate calcification within the right orbit unchanged. Or pleural apex clear. Sella turcica appears unremarkable Fluid within the sinuses is not noted IMPRESSION: No acute abnormality is displayed
[2019-12-14] MEDS ORDERED: TETRACAINE HCL 0.5% 4ML OPTH ONE (11:51)
--- NOTE | 2019-12-14 11:53 | ER ---
Nurse's Notes [facility] Name: Milan Weir Age: 79 yrs Sex: Female : 1940 Arrival Date: 12/14/2019 Time: 09:31 Bed 27 Private MD: Diagnosis: Conjunctivitis Presentation: 12/13 09:42 Chief complaint: Patient states: R EYE DRAINAGE x3 WK. Coronavirus screen: Proceed with bp normal triage. Ebola Screen: No symptoms or risks identified at this time. Mechanism of Injury: No Mechanism of Injury. The patient denies any loss of vision. Initial Sepsis Screen: Does the patient meet any 2 criteria? No. Patient's initial sepsis screen is negative. Does the patient have a suspected source of infection? No. Patient's initial sepsis screen is negative. Risk Assessment: Do you want to hurt yourself or someone else? Patient reports no desire to harm self or others. Onset of symptoms is unknown. 09:42 Method Of Arrival: Ambulatory bp 09:42 Acuity: JARRETT 4 bp Triage Assessment: 09:44 General: Appears in no apparent distress. comfortable, Behavior is cooperative, bp appropriate for age, anxious. Pain: Complains of pain in right eye. EENT: Eyes with exudate noted from right eye. Neuro: No deficits noted. Cardiovascular: No deficits noted. Respiratory: No deficits noted. GI: No signs and/or symptoms were reported involving the gastrointestinal system. : No signs and/or symptoms were reported regarding the genitourinary system. Derm: No deficits noted. Musculoskeletal: No deficits noted. Historical: - Allergies: 09:44 tramadol; bp 09:44 Tylenol-Codeine; bp - Home Meds: 09:44 Aricept Oral [Active]; Effexor Oral [Active]; Namenda Oral [Active]; bp - PMHx: 09:44 Alzheimers; COPD; Hernia; Pancreatitis; bp - Immunization history:: Adult Immunizations up to date. - Social history:: Smoking status: Patient denies any tobacco usage or history of. Patient/guardian denies using alcohol, street drugs, The patient lives alone, with family. - Family history:: not pertinent. Screenin:46 Abuse screen: Denies threats or abuse. Denies injuries from another. Nutritional bp screening: No deficits noted. Tuberculosis screening: No symptoms or risk factors identified. Fall Risk None identified. Assessment: 09:46 General: SEE TRIAGE NOTE. bp 10:30 Reassessment: PIV IN PLACE AND IVF INFUSING, CT PENDING. bp 11:30 Reassessment: PT RETURNED FROM CT. NO S/S ACUTE DISTRESS AT THIS TIME. bp 12:01 Reassessment: D/C ON HOLD FOR IVF COMPLETION. bp 12:31 Reassessment: PT D/C HOME AMBULATORY, DX WITH CONJUNCTIVITIS. bp Vital Signs: 09:42 BP 127 / 93; Pulse 100; Resp 17; Temp 97.8; Pulse Ox 100% ; Weight 57.15 kg; Height 5 bp ft. 4 in. (162.56 cm); 10:30 BP 107 / 56; Pulse 87; Resp 16; Pulse Ox 96% ; bp 11:30 BP 148 / 86; Pulse 77; Resp 16; Pulse Ox 94% ; bp 11:55 BP 131 / 84; Pulse 70; Resp 18; Pulse Ox 95% ; bp 12:31 BP 147 / 83; Pulse 70; Resp 16; Pulse Ox 95% ; bp 09:42 Body Mass Index 21.63 (57.15 kg, 162.56 cm) bp ED Course: 09:31 Patient arrived in ED. am2 09:34 Donaldo Pennington, SANDY is Primary Nurse. bp 09:35 Jose David Cruz MD is Attending Physician. ma2 09:43 Triage completed. bp 09:44 Arm band placed on. bp 09:46 Patient has correct armband on for positive identification. Bed in low position. Call bp light in reach. Side rails up X2. 10:20 Inserted saline lock: 20 gauge in left forearm, using aseptic technique. bp 11:16 Orbits W/Cont In Process Unspecified. EDMS 11:16 CT completed. Patient tolerated procedure well. Patient moved back from CT. mw3 12:26 No provider procedures requiring assistance completed. IV discontinued, intact, bp bleeding controlled, No redness/swelling at site. Pressure dressing applied. Administered Medications: 10:20 Drug: Phenergan 25 mg Route: IVP; Site: left forearm; bp 11:03 Follow up: Response: Pain is decreased bp 10:20 Drug: Demerol 25 mg Route: IVP; Site: left forearm; bp 11:03 Follow up: Response: Pain is decreased bp 10:20 Drug: Augmentin 875 mg Route: PO; bp 11:49 Follow up: Response: No adverse reaction bp 10:20 Drug: NS 0.9% 1000 ml Route: IV; Rate: 1 bolus; Site: left forearm; bp 12:31 Follow up: IV Status: Completed infusion; IV Intake: 1000ml bp 11:48 Drug: Tetracaine Drops 0.5 % 1 drops Route: Ophthalmic; Site: right eye; bp Intake: 12:31 IV: 1000ml; Total: 1000ml. bp Outcome: 11:53 Discharge ordered by MD. trimble 12:26 Discharged to home ambulatory, with family. bp 12:26 Condition: good 12:26 Discharge instructions given to patient, Instructed on discharge instructions, follow up and referral plans. medication usage, Demonstrated understanding of instructions, follow-up care, medications, Prescriptions given X 2. 12:31 Patient left the ED. ss Signatures: Dispatcher [employer] EDMS Dolores Jeong RN RN Jeannine Alfaro Brian, RN RN Jose David Cruz MD MD ma2 Willis, Michelle mw3
--- NOTE | 2019-12-14 11:54 | EDPHYS ---
Physician Documentation [facility] Name: Milan Weir Age: 79 yrs Sex: Female : 1940 Arrival Date: 12/14/2019 Time: 09:31 Bed 27 Private MD: ED Physician Jsoe David Cruz HPI: 12/13 11:49 This 79 yrs old Female presents to ER via Ambulatory with complaints of ma2 Fever, Drainage From Eye, Eye Pain. 11:49 Onset: The symptoms/episode began/occurred suddenly, 1 day(s) ago. Onset: The ma2 symptoms/episode began/occurred gradually, 1 week(s) ago. Associated signs and symptoms: Pertinent negatives: abdominal pain, arthralgias, chest pain, diarrhea, myalgias, night sweats, sinus drainage. Associated signs and symptoms: Pertinent negatives:. Severity of symptoms: At their worst the symptoms were mild in the emergency department the symptoms are unchanged. Severity of symptoms: At their worst the symptoms were in the emergency department the symptoms. The patient has experienced similar episodes in the past. Historical: - Allergies: 09:44 tramadol; bp 09:44 Tylenol-Codeine; bp - Home Meds: 09:44 Aricept Oral [Active]; Effexor Oral [Active]; Namenda Oral [Active]; bp - PMHx: 09:44 Alzheimers; COPD; Hernia; Pancreatitis; bp - Immunization history:: Adult Immunizations up to date. - Social history:: Smoking status: Patient denies any tobacco usage or history of. Patient/guardian denies using alcohol, street drugs, The patient lives alone, with family. - Family history:: not pertinent. ROS: 11:49 Constitutional: Negative for fever, chills, and weight loss. ma2 11:49 All other systems are negative. Exam: 11:49 Constitutional: This is a well developed, well nourished patient who is awake, alert, ma2 and in no acute distress. Head/Face: Normocephalic, atraumatic. Eyes: right eye shows red conjunctiva, otherwise Pupils equal round and reactive to light, extra-ocular motions intact. Lids and lashes normal. Conjunctiva and sclera are non-icteric and not injected. Cornea within normal limits. Periorbital areas with no swelling, redness, or edema. ENT: Nares patent. No nasal discharge, no septal abnormalities noted. Tympanic membranes are normal and external auditory canals are clear. Oropharynx with no redness, swelling, or masses, exudates, or evidence of obstruction, uvula midline. Mucous membranes moist. Neck: Trachea midline, no thyromegaly or masses palpated, and no cervical lymphadenopathy. Supple, full range of motion without nuchal rigidity, or vertebral point tenderness. No Meningismus. Chest/axilla: Normal chest wall appearance and motion. Nontender with no deformity. No lesions are appreciated. Cardiovascular: Regular rate and rhythm with a normal S1 and S2. No gallops, murmurs, or rubs. Normal PMI, no JVD. No pulse deficits. Respiratory: Lungs have equal breath sounds bilaterally, clear to auscultation and percussion. No rales, rhonchi or wheezes noted. No increased work of breathing, no retractions or nasal flaring. Abdomen/GI: Soft, non-tender, with normal bowel sounds. No distension or tympany. No guarding or rebound. No evidence of tenderness throughout. Vital Signs: 09:42 BP 127 / 93; Pulse 100; Resp 17; Temp 97.8; Pulse Ox 100% ; Weight 57.15 kg; Height 5 bp ft. 4 in. (162.56 cm); 10:30 BP 107 / 56; Pulse 87; Resp 16; Pulse Ox 96% ; bp 11:30 BP 148 / 86; Pulse 77; Resp 16; Pulse Ox 94% ; bp 11:55 BP 131 / 84; Pulse 70; Resp 18; Pulse Ox 95% ; bp 12:31 BP 147 / 83; Pulse 70; Resp 16; Pulse Ox 95% ; bp 09:42 Body Mass Index 21.63 (57.15 kg, 162.56 cm) bp MDM: 09:35 Patient medically screened. ma2 11:49 Differential diagnosis: viral Infection, bacterial infection, URI, bronchitis. Data ma2 reviewed: vital signs, nurses notes. Counseling: I had a detailed discussion with the patient and/or guardian regarding: the historical points, exam findings, and any diagnostic results supporting the discharge/admit diagnosis, the presence of at least one elevated blood pressure reading (>120/80) during this emergency department visit, the need for outpatient follow up. Response to treatment: the patient's symptoms have markedly improved after treatment. 11:53 ED course: 3rd visit to er for this issue, i saw her 1st visit and today her eye looks ma2 better, she has been using gentamycin eyes drop, i recommended she continue that and added Augmentin for possible early periorbital cellulitis . 12/13 10:02 Order name: CBC with Diff; Complete Time: 11:2 12/13 10:02 Order name: CMP; Complete Time: 11: ma2 12/13 10:02 Order name: Lipase; Complete Time: 11: ma2 12/13 10:56 Order name: Orbits W/Cont; Complete Time: 11:55 EDMS Administered Medications: 10:20 Drug: Phenergan 25 mg Route: IVP; Site: left forearm; bp 11:03 Follow up: Response: Pain is decreased bp 10:20 Drug: Demerol 25 mg Route: IVP; Site: left forearm; bp 11:03 Follow up: Response: Pain is decreased bp 10:20 Drug: Augmentin 875 mg Route: PO; bp 11:49 Follow up: Response: No adverse reaction bp 10:20 Drug: NS 0.9% 1000 ml Route: IV; Rate: 1 bolus; Site: left forearm; bp 12:31 Follow up: IV Status: Completed infusion; IV Intake: 1000ml bp 11:48 Drug: Tetracaine Drops 0.5 % 1 drops Route: Ophthalmic; Site: right eye; bp Disposition: 12/14/19 11:53 Discharged to Home. Impression: Conjunctivitis. - Condition is Stable. - Discharge Instructions: Bacterial Conjunctivitis. - Prescriptions for Augmentin 875- 125 mg Oral Tablet - take 1 tablet by ORAL route every 12 hours for 10 days; 20 tablet. Gentamicin 0.3 % Ophthalmic Drops - instill 1 drop by OPHTHALMIC route every 4 hours for 7 days; 1 bottle. - Medication Reconciliation Form, Thank You Letter, Antibiotic Education, Prescription Opioid Use form. - Follow up: Private Physician; When: Tomorrow; Reason: Continuance of care. Signatures: Dispatcher [employer] EDMS Dolores Jeong RN RN ss Peltier, Brian, RN RN bp Alzahri, Mohammad, MD MD ma2 Corrections: (The following items were deleted from the chart) 10:55 10:06 Maxillofacial W/Cont+CT.RAD.BRZ ordered. EDMS EDMS 10:56 10:17 CT-ORBITS WITHOUT CONTRAST ordered. EDDE EDMS 12:31 11:53 12/14/2019 11:53 Discharged to Home. Impression: Conjunctivitis. Condition is ss Stable. Prescriptions for Augmentin 875-125 mg Oral Tablet - take 1 tablet by ORAL route every 12 hours for 10 days; 20 tablet. and Forms are Medication Reconciliation Form, Thank You Letter, Antibiotic Education, Prescription Opioid Use. Follow up: Private Physician; When: Tomorrow; Reason: Continuance of care. ma2
[2019-12-14 12:39] VITALS: TEMP 97.8
[2019-12-14 12:43] VITALS: O2SAT 95
[2019-12-14 12:45] VITALS: BP 147/83
== END 2019-12-14 12:31 | disposition home or self-care (01) ==
LOC: ER 09:30
DX: H10.9 Unspecified conjunctivitis (principal); G30.9 Alzheimer's disease, unspecified; F02.80 Dementia in other diseases classified elsewhere, unspecified severity, without behavioral disturbance, psychotic disturbance, mood disturbance, and anxiety; J44.9 Chronic obstructive pulmonary disease, unspecified; Z79.899 Other long term (current) drug therapy
CPT/HCPCS: 96361; 85025; 36415; 83690; 80053; 70481; 96375; 96374; 99284; Q9967; J2550; J2175; J7030

== ENCOUNTER 2020-05-03 18:13 | Emergency (ER) | payer OTHER, BC ==
--- OUTSIDE RECORDS SUMMARY | 2020-05-03 18:15 | XMS REPORT | Continuity of Care Document ---
:1940 Author Organization [facility] t Address [address] [place] [address] Care Team Providers Name Role Phone IVONSON Attending Clinician Unavailable GENESIS Admitting Clinician Unavailable Problems This patient has no known problems. Allergies, Adverse Reactions, Alerts This patient has no known allergies or adverse reactions. Medications This patient has no known medications. Procedures This patient has no known procedures. Results Test Description Test Time Test Comments Results Result Comments Source BLOOD UREA NTIROGEN (BUN) 2016-12-27 09:33:00 Test Item Value Reference Range Interpretation Comme nts BUN (test code = BUN) 16.0 mg/dl 6.0-17.0 CREATININE, [id number] 09:33:00 Test Item Value Reference Range Interpretation Comments Creatinine (test 1.0 mg/dl 0.4-1.2 code = CREA) EGFR if >60 Jamaican (test code mL/min/1.73m\ = EGFRAA) S\2 EGFR if Non- 57 Estimate d Glomerular Jamaican (test code mL/min/1.73m\ Filtrat ion Rate (eGFR) = EGFRNA) S\2 Reference Inter vals Decision Points for 18 years and older and average body ma ss: >= 60 Does not exc lude kidney disease. 30 - 59 Suggests modera te chronic kidney disease and indicat es the need for furthe r investigation including asses sment of proteinuria and cardiovascular factors. < 30 Usually in dicates a need for refe rral for assessment and management of c hronic kidney failure.
[2020-05-03] MEDS ORDERED: MEPERIDINE HCL 50 MG/ML ONE (20:11)
[2020-05-03] MEDS ORDERED: PROMETHAZINE INJ 25 MG/ML AMP ONE (20:11)
--- NOTE | 2020-05-03 20:19 | ER ---
Nurse's Notes [facility] Name: Milan Weir Age: 80 yrs Sex: Female : 1940 Arrival Date: 05/03/2020 Time: 18:15 Bed 17 Private MD: Diagnosis: Right conjunctivitis. Chronic neck pain. Possible herpes zoster Presentation: 05/03 18:26 Chief complaint: Patient states: "my right eye has an infection and it's getting worse aa5 and also my neck pain is getting worse". Pt reports hx of chronic neck pain. Pt vomiting in triage. Coronavirus screen: Client denies travel out of the [place] in the last 14 days. At this time, the client does not indicate any symptoms associated with coronavirus-19. Ebola Screen: Patient negative for fever greater than or equal to 101.5 degrees Fahrenheit, and additional compatible Ebola Virus Disease symptoms. Initial Sepsis Screen: Does the patient meet any 2 criteria? No. Patient's initial sepsis screen is negative. Does the patient have a suspected source of infection? No. Patient's initial sepsis screen is negative. Risk Assessment: Do you want to hurt yourself or someone else? Patient reports no desire to harm self or others. Onset of symptoms is unknown. 18:26 Method Of Arrival: Wheelchair aa5 18:26 Acuity: JARRETT 3 aa5 Historical: - Allergies: 18:26 tramadol; aa5 18:26 Tylenol-Codeine; aa5 - Home Meds: 19:50 Effexor Oral [Active]; mt2 - PMHx: 18:26 Alzheimers; COPD; Hernia; Pancreatitis; aa5 - Immunization history:: Adult Immunizations unknown. - Social history:: Smoking status: Patient denies any tobacco usage or history of. Screenin:49 Abuse screen: Denies threats or abuse. Nutritional screening: No deficits noted. mt2 Tuberculosis screening: No symptoms or risk factors identified. Fall Risk None identified. Assessment: 19:46 Reassessment: Patient and/or family updated on plan of care and expected duration. Pain mt2 level reassessed. Patient is alert, oriented x 3, equal unlabored respirations, skin warm/dry/pink. General: Appears uncomfortable, Behavior is cooperative. Pain: Complains of pain in base of the skull Pain currently is 10 out of 10 on a pain scale. Neuro: Level of Consciousness is awake, alert, Oriented to person, place, time, situation. Cardiovascular: No deficits noted. Respiratory: No deficits noted. GI: No deficits noted. : No deficits noted. EENT: No deficits noted. EENT: Eyes are tearing on outer aspect of conjuctiva of right eye, iris of right eye and inner aspect of conjuctiva of right eye Reports pain in medial aspect of conjunctiva of right eye, lateral aspect of conjunctiva of right eye and right pupil. Derm: No deficits noted. Musculoskeletal: Reports pain in base of the skull. 20:13 Reassessment: VISUAL ACUITY RIGHT 20/25 LEFT 20/25 BOTH 20/20. EENT: Eyes. mt2 Vital Signs: 18:26 BP 167 / 101; Pulse 87; Resp 18 S; Temp 97.9(TE); Pulse Ox 97% on R/A; Pain 10/10; aa5 19:46 BP 178 / 84; Pulse 73; Pulse Ox 95% on R/A; Pain 10/10; mt2 20:22 BP 168 / 71; Pulse 72; Resp 16; Pulse Ox 95% ; Pain 5/10; mt2 Visual Acuity: 20:14 Left Eye Visual acuity 20/25, ; Right Eye Visual acuity 20/25, ; Both Eyes Visual mt2 acuity 20/20; Without Lenses; ED Course: 18:15 Patient arrived in ED. ag5 18:26 Arm band placed on. aa5 18:28 Triage completed. aa5 19:25 Sarita Maher, SANDY is Primary Nurse. mt2 19:43 Ezekiel Soria MD is Attending Physician. pkl 19:50 Patient has correct armband on for positive identification. Bed in low position. Call mt2 light in reach. Side rails up X 1. 20:32 No provider procedures requiring assistance completed. Patient did not have IV access mt2 during this emergency room visit. Administered Medications: 20:10 Drug: Demerol 50 mg Route: IM; Site: left gluteus; mt2 20:21 Follow up: Response: No adverse reaction; Pain is decreased mt2 20:10 Drug: Phenergan 25 mg Route: IM; Site: left gluteus; mt2 20:21 Follow up: Response: No adverse reaction; Nausea is decreased mt2 Outcome: 20:18 Discharge ordered by . rosangela 20:32 Discharged to home ambulatory. mt2 20:32 Condition: good 20:32 Discharge instructions given to patient, Instructed on discharge instructions, follow up and referral plans. medication usage, [employer]LY[employer] Demonstrated understanding of instructions, follow-up care, medications, Prescriptions given X 2. 20:47 Patient left the ED. mt2 Signatures: Ezekiel Soria MD MD pkl Calderon, Audri, RN RN valdez5 Loyda Elmore Sarita Nguyen RN RN mt2
--- NOTE | 2020-05-03 20:19 | EDPHYS ---
Physician Documentation [facility] Name: Milan Weir Age: 80 yrs Sex: Female : 1940 Arrival Date: 05/03/2020 Time: 18:15 Bed 17 Private MD: ED Physician Ezekiel Soria HPI: 05/03 20:01 This 80 yrs old Female presents to ER via Wheelchair with complaints of Eye pkl Problem, Neck Pain, <24hrs Old. 20:01 The patient is experiencing pain, redness. Onset: The symptoms/episode began/occurred 3 pkl day(s) ago. Associated signs and symptoms: Pertinent positives: mild rash above right eye. Patient also complained worsening pain in her neck. Patient has been following up with her pain management physician ( Dr.. Pino ). Historical: - Allergies: 18:26 tramadol; aa5 18:26 Tylenol-Codeine; aa5 - Home Meds: 19:50 Effexor Oral [Active]; mt2 - PMHx: 18:26 Alzheimers; COPD; Hernia; Pancreatitis; aa5 - Immunization history:: Adult Immunizations unknown. - Social history:: Smoking status: Patient denies any tobacco usage or history of. ROS: 20:10 ENT: Negative for injury, pain, and discharge. pkl 20:10 Eyes: Positive for pain, redness, of the right eye. 20:10 Neck: Positive for pain with movement, of the back of neck. 20:10 Cardiovascular: Negative for chest pain. 20:10 Respiratory: Negative for cough, shortness of breath. 20:10 Abdomen/GI: Negative for abdominal pain, nausea, vomiting, and diarrhea. 20:10 Back: Negative for acute changes. 20:10 : Negative for urinary symptoms. 20:10 MS/extremity: Negative for acute changes. 20:10 Skin: Positive for rash, of the right forehead. 20:10 Neuro: Negative for altered mental status. Exam: 20:10 Visual Acuity: I have reviewed the nursing documentation. pkl 20:10 ENT: Nares patent. No nasal discharge, no septal abnormalities noted. Tympanic membranes are normal and external auditory canals are clear. Oropharynx with no redness, swelling, or masses, exudates, or evidence of obstruction, uvula midline. Mucous membranes moist. 20:10 Head/face: Noted is possible above right eye. 20:10 Eyes: Pupils: no acute changes, Conjunctiva: injected, in the right eye. 20:10 ENT: Exam is negative for acute changes. 20:10 Neck: ROM/movement: pain, that is moderate, with any movement. 20:10 Chest/axilla: Exam negative for acute changes. 20:10 Cardiovascular: Exam negative for acute changes. 20:10 Respiratory: the patient does not display signs of respiratory distress, Respirations: normal, Breath sounds: are clear throughout. 20:10 Abdomen/GI: Bowel sounds: normal, Palpation: abdomen is soft and non-tender, in all quadrants. 20:10 Back: Exam negative for acute changes. 20:10 : Exam negative for acute changes. 20:10 Musculoskeletal/extremity: Exam is negative for acute changes. 20:10 Skin: possible rash right forehead. 20:10 Neuro: Orientation: is normal, Mentation: is normal, Cranial nerves: grossly normal, Motor: is normal, Gait: is steady. Vital Signs: 18:26 BP 167 / 101; Pulse 87; Resp 18 S; Temp 97.9(TE); Pulse Ox 97% on R/A; Pain 10/10; aa5 19:46 BP 178 / 84; Pulse 73; Pulse Ox 95% on R/A; Pain 10/10; mt2 20:22 BP 168 / 71; Pulse 72; Resp 16; Pulse Ox 95% ; Pain 5/10; mt2 Visual Acuity: 20:14 Left Eye Visual acuity 20/25, ; Right Eye Visual acuity 20/25, ; Both Eyes Visual mt2 acuity 20/20; Without Lenses; MDM: 19:43 Patient medically screened. pkl 20:10 Data reviewed: vital signs, nurses notes. pkl 05/03 20:10 Order name: Visual Acuity; Complete Time: 20:10 pkl Administered Medications: 20:10 Drug: Demerol 50 mg Route: IM; Site: left gluteus; mt2 20:21 Follow up: Response: No adverse reaction; Pain is decreased mt2 20:10 Drug: Phenergan 25 mg Route: IM; Site: left gluteus; mt2 20:21 Follow up: Response: No adverse reaction; Nausea is decreased mt2 Disposition: 05/03/20 20:18 Discharged to Home. Impression: Right conjunctivitis. Chronic neck pain. Possible herpes zoster. - Condition is Stable. - Prescriptions for promethazine 25 mg Oral Tablet - take 1 tablet by ORAL route every 8 hours As needed; 15 tablet. - Medication Reconciliation Form, Thank You Letter, Antibiotic Education, Prescription Opioid Use form. - Follow up: Private Physician; When: 1 - 2 days; Reason: Re-evaluation by your physician. - Problem is new. - Symptoms are unchanged. Signatures: Ezekiel Soria MD MD pkl Elena Corcoran RN RN aa5 Sarita Maher RN RN mt2 Corrections: (The following items were deleted from the chart) 20:47 20:18 05/03/2020 20:18 Discharged to Home. Impression: Right conjunctivitis. Chronic mt2 neck pain. Possible herpes zoster. Condition is Stable. Forms are Medication Reconciliation Form, Thank You Letter, Antibiotic Education, Prescription Opioid Use. Follow up: Private Physician; When: 1 - 2 days; Reason: Re-evaluation by your physician. Problem is new. Symptoms are unchanged. pkl
[2020-05-06 15:17] VITALS: TEMP 97.9
[2020-05-06 15:19] VITALS: O2SAT 95
[2020-05-06 15:20] VITALS: BP 168/71
== END 2020-05-03 20:47 | disposition home or self-care (01) ==
LOC: ER 18:13
DX: H10.9 Unspecified conjunctivitis (principal); G89.29 Other chronic pain; R21 Rash and other nonspecific skin eruption; G30.9 Alzheimer's disease, unspecified; F02.80 Dementia in other diseases classified elsewhere, unspecified severity, without behavioral disturbance, psychotic disturbance, mood disturbance, and anxiety; Z88.5 Allergy status to narcotic agent
CPT/HCPCS: 96372; 99283; J2550; J2175

== ENCOUNTER 2020-05-13 14:03 | Emergency (ER) | payer OTHER, BC ==
--- OUTSIDE RECORDS SUMMARY | 2020-05-13 14:14 | XMS REPORT | Continuity of Care Document ---
:1940 Author Organization [facility] t Address [address] [place] [address] Care Team Providers Name Role Phone SINGSON Attending Clinician Unavailable SINGSON Admitting Clinician Unavailable Problems This patient has [...] code = BUN) 16.0 mg/dl 6.0-17.0 CREATININE, [id number] 09:33:00 Test Item Value Reference Range Interpretation Comments Creatinine (test 1.0 mg/dl 0.4-1.2 code = CREA) EGFR if >60 Romanian (test code mL/min/1.73m\ = EGFRAA) S\2 EGFR if Non- 57 Estimate d Glomerular Romanian (test code mL/min/1.73m\ Filtrat ion Rate (eGFR) [...]
[2020-05-13] MEDS ORDERED: PROMETHAZINE INJ 25 MG/ML AMP ONE (17:37)
[2020-05-13] MEDS ORDERED: MEPERIDINE HCL 50 MG/ML ONE (17:37)
--- NOTE | 2020-05-13 17:37 | RAD REPORT ---
EXAM DESCRIPTION: CT - Head Brain Wo Cont - 05/13/2020 5:20 pm CLINICAL HISTORY: HEADACHE COMPARISON: Head Brain Wo Cont dated 12/10/2019 TECHNIQUE: Axial 5 mm thick images of the head were obtained without IV contrast. All CT scans are performed using dose optimization technique as appropriate and may include automated exposure control or mA/KV adjustment according to patient size. FINDINGS: No intracranial hemorrhage, mass, edema or shift of mid-line structures. No acute infarcti on changes seen. No abnormal extra-axial fluid collections. Atrophy is mild with ventricles in propor tion. Chronic ischemic change is very minimal if present. Arterial and physiologic calcifications are present. Mastoid air cells and visualized portions of the paranasal sinuses are clear. No acute bony findings. Small metallic fragments are present at the posterior left parietal bone near the midline. These are unchanged from comparison. IMPRESSION: Negative non-contrast CT head examination for acute finding. Intracranial findings are stable from December 2019.
--- NOTE | 2020-05-13 17:49 | RAD REPORT ---
EXAM DESCRIPTION: CT - Abdomen Pelvis W Contrast - 05/13/2020 5:29 pm CLINICAL HISTORY: Abd pain;Abdominal distention COMPARISON: Abdomen Pelvis W Contrast dated 12/10/2019 TECHNIQUE: Biphasic, helical CT imaging of the abdomen and pelvis was performed following 100 ml non -ionic IV contrast. No oral contrast administered. All CT scans are performed using dose optimization technique as appropriate and may include automated exposure control or mA/KV adjustment according to patient size. FINDINGS: No suspicious findings in the lung bases. The liver, spleen, and pancreas show no suspicious findings. Gallbladder is absent. Biliary tree with in normal limits. Symmetric renal function is seen with no hydronephrosis or suspicious renal mass. No pyelonephritis o r acute parenchymal process. No bladder abnormalities. No adrenal abnormalities. No dilated bowel loops or bowel wall thickening. No appendicitis findings. Moderate stool volume is p resent in the right-side of the colon. Sigmoid diverticulosis is moderate. No free air, free fluid or inflammatory stranding. No hernia, mass or bulky lymphadenopathy. No suspicious bony findings. Degenerative change similar to December. IMPRESSION: Contrast enhanced CT abdomen and pelvis showing no acute or emergent finding. Above detailed findings are similar to the December 2019 study.
[2020-05-13 17:55] LABS: Absolute Lymphocytes (CBC) 2.5 K/uL (0.7-4.9); Basophils % 0.7 % (0-1.3); Hematocrit 41.6 % (36.0-45.0); Lymphocytes % 34.1 % (15.3-44.8); MPV 8.3 fL (7.6-11.3); RBC Red Blood Cell Count 4.65 M/uL (3.86-4.86)
[2020-05-13 18:04] LABS: ALT/SGPT 20 U/L (12-78); AST/SGOT 18 U/L (15-37); Albumin 3.6 g/dL (3.4-5.0); Alkaline Phosphatase 99 U/L (45-117); BUN Blood Urea Nitrogen 8 mg/dL (7-18); Bicarbonate 28 mmol/L (21-32); Bilirubin Direct < 0.1 mg/dL (0-0.2); Bilirubin Total 0.4 mg/dL (0.2-1.0); Glucose Level 90 mg/dL (74-106); Lipase 107 U/L (73-393); Protein, Total 7.5 g/dL (6.4-8.2); Sodium Level 142 mmol/L (136-145)
[2020-05-13 18:15] LABS: Potassium 2.9 mmol/L (3.5-5.1)
[2020-05-13 18:19] LABS: Urine Blood TRACE (NEG); Urine Glucose NEGATIVE (NEG); Urine Protein NEGATIVE (NEG); Urine Specific Gravity 1.015 (1.005-1.030); Urine pH 5.5 (5.0-7.0)
--- NOTE | 2020-05-13 18:48 | EDPHYS ---
Physician Documentation [facility] Name: Milan Weir Age: 80 yrs Sex: Female : 1940 Arrival Date: 05/13/2020 Time: 14:05 Bed 6 Private MD: ED Physician John Ramon HPI: 05/13 17:42 This 80 yrs old Female presents to ER via Wheelchair with complaints of rn Abnormal Lab Results, Abdominal Swelling. 17:42 The patient presents with abdominal pain abdominal distention. Onset: The rn symptoms/episode began/occurred at an unknown time. Associated signs and symptoms: Pertinent negatives: blood in stools, chest pain, constipation, diarrhea, fever, shortness of breath, vomiting, vomiting blood. The symptoms are described as achy. Modifying factors: The symptoms are alleviated by nothing, the symptoms are aggravated by nothing. Severity of pain: At its worst the pain was mild in the emergency department the pain is unchanged. The patient has experienced similar episodes in the past. Reports 2nd visit to pcp this week for abdominal problems, reports a year or so of abd swelling, feels like got a little worse recently, no fever/vomiting/diarrhea/blood in stool. No trauma. Reports bloodwork showed "mild kidney problems" so told to come here for eval. Reports hx of liver/pancreas/kidney problems, but hasn't seen anyone in 2 years or so. . Historical: - Allergies: 14:45 tramadol; ca1 14:45 Tylenol-Codeine; ca1 - PMHx: 14:45 Alzheimers; COPD; Hernia; Pancreatitis; ca1 - Immunization history:: Adult Immunizations up to date. - Social history:: Smoking status: Patient denies any tobacco usage or history of. - Family history:: not pertinent. - Hospitalizations: : No recent hospitalization is reported. ROS: 17:42 Constitutional: Negative for fever, chills, and weight loss, Neck: Negative for injury, rn pain, and swelling, Cardiovascular: Negative for chest pain, palpitations, and edema, Respiratory: Negative for shortness of breath, cough, wheezing, and pleuritic chest pain, Abdomen/GI: Negative for nausea, vomiting, diarrhea, and constipation, MS/Extremity: Negative for injury and deformity, Skin: Negative for injury, rash, and discoloration, Neuro: Negative for weakness, numbness, tingling, and seizure. Exam: 17:42 Constitutional: This is a well developed, well nourished patient who is awake, alert, rn and in no acute distress. Head/Face: Normocephalic, atraumatic. Cardiovascular: Regular rate and rhythm. No pulse deficits. Respiratory: Speaking full sentences. No increased work of breathing, no retractions or nasal flaring. Abdomen/GI: soft, mild upper abd tenderness, no rebound or masses Skin: Warm, dry MS/ Extremity: Pulses equal, no cyanosis. Neurovascular intact. Full, normal range of motion. Equal circumference. Neuro: Awake and alert, GCS 15 Vital Signs: 14:38 BP 136 / 90; Pulse 85; Resp 16 S; Temp 99(TE); Pulse Ox 100% on R/A; Weight 58.97 kg ca1 (R); Height 5 ft. 4 in. (162.56 cm) (R); 17:46 BP 178 / 92; Pulse 87; Resp 17; Pulse Ox 96% ; rb1 18:38 BP 168 / 82; Pulse 78; Resp 16; Pulse Ox 99% ; rb1 19:15 BP 155 / 86; Pulse 73; Resp 16; Temp 98.6; Pulse Ox 99% ; rv 14:38 Body Mass Index 22.31 (58.97 kg, 162.56 cm) ca1 MDM: 16:37 Patient medically screened. rn 18:43 Differential diagnosis: bowel obstruction, gastritis, gastroesophageal reflux disease, rn non-specific abd pain, pancreatitis, urinary tract infection. Data reviewed: vital signs, nurses notes, lab test result(s), radiologic studies, CT scan, and as a result, I will discharge patient. Counseling: I had a detailed discussion with the patient and/or guardian regarding: the historical points, exam findings, and any diagnostic results supporting the discharge/admit diagnosis, lab results, radiology results, the need for outpatient follow up, to return to the emergency department if symptoms worsen or persist or if there are any questions or concerns that arise at home. Response to treatment: the patient's symptoms have mildly improved after treatment, and as a result, I will discharge patient. Special discussion: I discussed with the patient/guardian in detail that at this point there is no indication for admission to the hospital. It is understood, however, that if the symptoms persist or worsen the patient needs to return immediately for re-evaluation. Based on the history and exam findings, there is no indication for further emergent testing or inpatient evaluation. I discussed with the patient/guardian the need to see the shuttle driver for further evaluation of the symptoms. I discussed with the patient/guardian the need to see the primary care provider for further evaluation of the symptoms. ED course: NO acute findings on w/u here in blood or ct abdomen, will dc home with pcp and GI f/u, results printed and given to patient. . 05/13 16:54 Order name: Basic Metabolic Panel; Complete Time: 18:38 rn 05/13 16:54 Order name: CBC with Diff; Complete Time: 18:38 rn 05/13 16:54 Order name: Hepatic Function; Complete Time: 18:38 rn 05/13 16:54 Order name: Lipase; Complete Time: 18:38 rn 05/13 17:21 Order name: Urine Dipstick--Ancillary (enter results); Complete Time: 18:38 bd 05/13 19:16 Order name: Urine Dipstick--Ancillary (enter results) tt3 05/13 16:54 Order name: IV Saline Lock; Complete Time: 17:14 rn 05/13 16:54 Order name: Labs collected and sent; Complete Time: 17:14 rn 05/13 16:54 Order name: CT Head Brain wo Cont; Complete Time: 17:53 rn 05/13 16:54 Order name: CT Abd/Pelvis - IV Contrast Only; Complete Time: 17:53 rn Administered Medications: 17:40 Drug: Demerol 25 mg Route: IVP; Site: right antecubital; rb1 17:55 Follow up: Response: No adverse reaction; Pain is decreased rb1 17:40 Drug: Phenergan 12.5 mg Route: IVP; Site: right antecubital; rb1 17:55 Follow up: Response: No adverse reaction; Nausea is decreased rb1 18:55 Drug: Potassium Chloride 40 mEq Route: PO; rb1 19:25 Follow up: Response: No adverse reaction rv Disposition: 05/13/20 18:47 Discharged to Home. Impression: Unspecified abdominal pain, Hypokalemia. - Condition is Stable. - Discharge Instructions: Abdominal Pain, Adult, Hypokalemia. - Medication Reconciliation Form, Thank You Letter, Antibiotic Education, Prescription Opioid Use form. - Follow up: Private Physician; When: As needed; Reason: Recheck today's complaints, Re-evaluation by your physician. - Problem is chronic. - Symptoms have improved. Signatures: Dispatcher [employer] EDMS John Ramon MD MD rn Barber, Rebecca RN RN rb1 Wilbert House RN RN rv Acob, eCline RN RN ca1 Corrections: (The following items were deleted from the chart) 19:25 18:47 05/13/2020 18:47 Discharged to Home. Impression: Unspecified abdominal pain; rv Hypokalemia. Condition is Stable. Forms are Medication Reconciliation Form, Thank You Letter, Antibiotic Education, Prescription Opioid Use. Follow up: Private Physician; When: As needed; Reason: Recheck today's complaints, Re-evaluation by your physician. Problem is chronic. Symptoms have improved. rn
--- NOTE | 2020-05-13 18:48 | ER ---
Nurse's Notes [facility] Name: Milan Weir Age: 80 yrs Sex: Female : 1940 Arrival Date: 05/13/2020 Time: 14:05 Bed 6 Private MD: Diagnosis: Unspecified abdominal pain;Hypokalemia Presentation: 05/13 14:38 Chief complaint: Patient states: I may have had a stroke episode couple days ago, I ca1 woke up just a little bit disoriented, and confused. Had a doctor's appointment today for abdominal pain and distention, nausea. Denies vomiting and diarrhea. Pt alert and Ox4. Denies weakness. Speech appears normal. Nurse at the doctor's office said her kidney function declined. Nurse Amy, number [phone]. Coronavirus screen: Client denies travel out of the [place] in the last 14 days. At this time, the client does not indicate any symptoms associated with coronavirus-19. Ebola Screen: Patient negative for fever greater than or equal to 101.5 degrees Fahrenheit, and additional compatible Ebola Virus Disease symptoms Patient denies exposure to infectious person. Patient denies travel to an Ebola-affected area in the 21 days before illness onset. No symptoms or risks identified at this time. Initial Sepsis Screen: Does the patient meet any 2 criteria? No. Patient's initial sepsis screen is negative. Does the patient have a suspected source of infection? No. Patient's initial sepsis screen is negative. Risk Assessment: Do you want to hurt yourself or someone else? Patient reports no desire to harm self or others. Onset of symptoms was May 13, 2020. 14:38 Method Of Arrival: Wheelchair ca1 14:38 Acuity: JARRETT 3 ca1 Historical: - Allergies: 14:45 tramadol; ca1 14:45 Tylenol-Codeine; ca1 - PMHx: 14:45 Alzheimers; COPD; Hernia; Pancreatitis; ca1 - Immunization history:: Adult Immunizations up to date. - Social history:: Smoking status: Patient denies any tobacco usage or history of. - Family history:: not pertinent. - Hospitalizations: : No recent hospitalization is reported. Screenin:40 Abuse screen: Denies threats or abuse. Nutritional screening: No deficits noted. rb1 Tuberculosis screening: No symptoms or risk factors identified. Fall Risk None identified. Assessment: 16:40 General: Appears in no apparent distress. comfortable, Behavior is calm, cooperative. rb1 Pain: Complains of pain in abdomen Pain currently is 7 out of 10 on a pain scale. Neuro: Level of Consciousness is awake, alert, obeys commands, Oriented to person, place, time, situation. Cardiovascular: Capillary refill < 3 seconds Patient's skin is warm and dry. Respiratory: Airway is patent Respiratory effort is even, unlabored, Respiratory pattern is regular, symmetrical. GI: Reports incontinence, normal bowel habits. : Reports incontinence. Derm: 17:42 Reassessment: Patient appears in no apparent distress at this time. No changes from rb1 previously documented assessment. 18:07 Reassessment: Called lab for an update on lab results, was told that it is still rb1 running. Dr. Ramno notified. 18:38 Reassessment: Patient appears in no apparent distress at this time. Patient and/or rb1 family updated on plan of care and expected duration. Pain level reassessed. Patient is alert, oriented x 3, equal unlabored respirations, skin warm/dry/pink. 19:00 GI: Bowel sounds present X 4 quads. Abd is soft and non tender X 4 quads. rv Vital Signs: 14:38 BP 136 / 90; Pulse 85; Resp 16 S; Temp 99(TE); Pulse Ox 100% on R/A; Weight 58.97 kg ca1 (R); Height 5 ft. 4 in. (162.56 cm) (R); 17:46 BP 178 / 92; Pulse 87; Resp 17; Pulse Ox 96% ; rb1 18:38 BP 168 / 82; Pulse 78; Resp 16; Pulse Ox 99% ; rb1 19:15 BP 155 / 86; Pulse 73; Resp 16; Temp 98.6; Pulse Ox 99% ; rv 14:38 Body Mass Index 22.31 (58.97 kg, 162.56 cm) ca1 ED Course: 14:05 Patient arrived in ED. as 14:45 Triage completed. ca1 14:45 Arm band placed on right wrist. ca1 16:37 John Ramon MD is Attending Physician. rn 16:40 Patient has correct armband on for positive identification. Bed in low position. Call rb1 light in reach. Side rails up X 1. Pulse ox on. NIBP on. Warm blanket given. 17:04 Edna Willett, RN is Primary Nurse. rb1 17:08 Initial lab(s) drawn, by me, sent to lab. Inserted saline lock: 20 gauge in right dh3 antecubital area, using aseptic technique. Blood collected. 17:20 CT Head Brain wo Cont In Process Unspecified. EDMS 17:29 CT Abd/Pelvis - IV Contrast Only In Process Unspecified. EDMS 19:25 No provider procedures requiring assistance completed. IV discontinued, intact, rv bleeding controlled, No redness/swelling at site. Pressure dressing applied. Administered Medications: 17:40 Drug: Demerol 25 mg Route: IVP; Site: right antecubital; rb1 17:55 Follow up: Response: No adverse reaction; Pain is decreased rb1 17:40 Drug: Phenergan 12.5 mg Route: IVP; Site: right antecubital; rb1 17:55 Follow up: Response: No adverse reaction; Nausea is decreased rb1 18:55 Drug: Potassium Chloride 40 mEq Route: PO; rb1 19:25 Follow up: Response: No adverse reaction rv Outcome: 18:47 Discharge ordered by . rn 19:25 Discharged to home ambulatory. rv 19:25 Condition: good 19:25 Discharge instructions given to patient, Instructed on discharge instructions, follow up and referral plans. Demonstrated understanding of instructions, follow-up care. 19:25 Patient left the ED. rv Signatures: Dispatcher [employer] Rose Ram Roman, MD MD rn Barber, Rebecca, RN RN rb1 Mariah Maravilla [facility] Wilbert House RN RN rv Celine Huitron RN RN ca1
[2020-05-13] MEDS ORDERED: POTASSIUM CL SA 10 MEQ TAB PO ONE (19:03)
[2020-05-13 20:11] VITALS: O2SAT 99
[2020-05-13 20:13] VITALS: BP 155/86; TEMP 98.6
[2020-05-13 20:25] LABS: Urine Blood TRACE (NEG); Urine Glucose NEGATIVE (NEG); Urine Protein NEGATIVE (NEG); Urine Specific Gravity 1.015 (1.005-1.030); Urine pH 5.5 (5.0-7.0)
== END 2020-05-13 19:25 | disposition home or self-care (01) ==
LOC: ER 14:03
DX: E87.6 Hypokalemia (principal); G30.9 Alzheimer's disease, unspecified; F02.80 Dementia in other diseases classified elsewhere, unspecified severity, without behavioral disturbance, psychotic disturbance, mood disturbance, and anxiety; Z88.5 Allergy status to narcotic agent; Z88.6 Allergy status to analgesic agent
CPT/HCPCS: 85025; 80048; 36415; 82565; 80076; 81003 ×2; 83690; 70450; 74177; 96375; 96374; 99284; Q9967; J2550; J2175

== ENCOUNTER 2020-05-16 06:08 | Emergency (ER) | payer OTHER, BC ==
--- OUTSIDE RECORDS SUMMARY | 2020-05-16 06:10 | XMS REPORT | Continuity of Care Document ---
:1940 Author Organization [facility] t Address [address] [place] [address] Care Team Providers Name Role Phone IVONSON [...] code = BUN) 16.0 mg/dl 6.0-17.0 CREATININE, [id number] 09:33:00 Test Item Value Reference Range Interpretation Comments Creatinine (test 1.0 mg/dl 0.4-1.2 code = CREA) EGFR if >60 Wallisian (test code mL/min/1.73m\ = EGFRAA) S\2 EGFR if Non- 57 Estimate d Glomerular Wallisian (test code mL/min/1.73m\ Filtrat ion Rate (eGFR) [...]
[2020-05-16 06:46] LABS: Absolute Lymphocytes (CBC) 1.4 K/uL (0.7-4.9); Basophils % 1.1 % (0-1.3); Hematocrit 36.8 % (36.0-45.0); Lymphocytes % 24.5 % (15.3-44.8); MPV 7.9 fL (7.6-11.3); RBC Red Blood Cell Count 4.15 M/uL (3.86-4.86)
[2020-05-16] MEDS ORDERED: NA CHLORIDE 0.9% 1,000 ML ONE (06:51)
[2020-05-16 07:02] LABS: Albumin 2.9 g/dL (3.4-5.0); Bilirubin Direct 0.1 mg/dL (0-0.2); Bilirubin Total 0.4 mg/dL (0.2-1.0); Potassium 3.8 mmol/L (3.5-5.1); Protein, Total 6.2 g/dL (6.4-8.2)
--- NOTE | 2020-05-16 07:56 | RAD REPORT ---
EXAM DESCRIPTION: CTAbdomen Pelvis W Contrast - 05/16/2020 7:41 am CLINICAL HISTORY: Abdominal pain. ABD PAIN COMPARISON: Abdomen Pelvis W Contrast dated 05/13/2020; Abdomen Pelvis W Contrast dated 12/10/2019; Abdomen Pelvis W Contrast dated 12/04/2019; Abdomen Pelvis W Contrast dated 08/25/2019 TECHNIQUE: Biphasic CT imaging of the abdomen and pelvis was performed with 100 ml non-ionic IV cont rast. All CT scans are performed using dose optimization technique as appropriate and may include automated exposure control or mA/KV adjustment according to patient size. FINDINGS: Emphysematous lung bases are present. Mild diffuse fatty liver is seen. Cholecystectomy clips. The spleen, pancreas, adrenal glands and kid neys are within normal limits. No bowel obstruction, free air, free fluid or abscess. Mild sigmoid diverticulosis coli without diver ticulitis. Appendectomy No evidence of significant lymphadenopathy. No suspicious bony findings. IMPRESSION: No acute intra-abdominal or pelvic finding.
[2020-05-16] MEDS ORDERED: MEPERIDINE HCL 50 MG/ML ONE (07:57)
[2020-05-16] MEDS ORDERED: PROMETHAZINE INJ 25 MG/ML AMP ONE (07:57)
[2020-05-16 08:38] LABS: Urine Bacteria <20 /HPF (<20); Urine Culture Reflex Order NOT NEEDED; Urine RBC <5 /HPF (NONE SEEN)
--- NOTE | 2020-05-16 08:59 | EDPHYS ---
Physician Documentation [facility] Name: Milan Weir Age: 80 yrs Sex: Female : 1940 Arrival Date: 05/16/2020 Time: 06:15 Bed 7 Private MD: ED Physician John Ramon HPI: 05/16 06:35 This 80 yrs old Female presents to ER via EMS with complaints of Abd Pain > pm1 49 y/o, Flank Pain. 06:35 The patient presents with abdominal pain in the lower abdomen. Onset: The pm1 symptoms/episode began/occurred this morning. Associated signs and symptoms: Pertinent positives: nausea and vomiting, Flank pain, Dark urine, Pertinent negatives: chest pain, constipation, diarrhea, shortness of breath. The symptoms are described as achy. Modifying factors: The symptoms are alleviated by Phenergan but ran out. the symptoms are aggravated by nothing. Severity of pain: in the emergency department the pain has improved. The patient has been recently seen at the [facility] Emergency Department, for similar complaints labs were performed, CT scan was performed, 3 days ago. Historical: - Allergies: 06:23 tramadol; sg 06:23 Tylenol-Codeine; sg - Home Meds: 06:36 Effexor Oral [Active]; lp1 - PMHx: 06:23 Alzheimers; COPD; Hernia; Pancreatitis; sg - PSHx: 06:23 Cholecystectomy; sg 06:36 Appendectomy; lp1 - Immunization history:: Adult Immunizations unknown. - Social history:: Smoking status: Patient reports the use of cigarette tobacco products. ROS: 06:35 Constitutional: Negative for fever, chills, and weight loss, Cardiovascular: Negative pm1 for chest pain, palpitations, and edema, Respiratory: Negative for shortness of breath, cough, wheezing, and pleuritic chest pain. 06:35 Back: Negative for injury and pain, MS/Extremity: Negative for injury and deformity, Skin: Negative for injury, rash, and discoloration, Neuro: Negative for headache, weakness, numbness, tingling, and seizure. 06:35 Abdomen/GI: Positive for abdominal pain, nausea and vomiting, Negative for diarrhea, constipation. Exam: 06:35 Constitutional: This is a well developed, well nourished patient who is awake, alert, pm1 and in no acute distress. Head/Face: Normocephalic, atraumatic. Cardiovascular: Regular rate and rhythm with a normal S1 and S2. No gallops, murmurs, or rubs. Normal PMI, no JVD. No pulse deficits. Respiratory: Lungs have equal breath sounds bilaterally, clear to auscultation and percussion. No rales, rhonchi or wheezes noted. No increased work of breathing, no retractions or nasal flaring. 06:35 Back: No spinal tenderness. No costovertebral tenderness. Full range of motion. Skin: Warm, dry with normal turgor. Normal color with no rashes, no lesions, and no evidence of cellulitis. MS/ Extremity: Pulses equal, no cyanosis. Neurovascular intact. Full, normal range of motion. 06:35 Abdomen/GI: Inspection: abdomen appears normal, Palpation: soft, in all quadrants, mild abdominal tenderness, in the right upper quadrant. 06:35 Neuro: Exam negative for acute changes, Orientation: is normal, Mentation: is normal, Motor: is normal, moves all fours. Vital Signs: 06:15 BP 149 / 109; Pulse 80; Resp 18; Temp 97.8(O); Pulse Ox 98% on R/A; Weight 58.97 kg lp1 (R); Height 5 ft. 4 in. (162.56 cm); Pain 10/10; 06:35 BP 168 / 97; Pulse 78; Resp 18; Pulse Ox 99% on R/A; lp1 07:20 BP 179 / 86; Pulse 75; Resp 18; Pulse Ox 96% on R/A; Pain 10/10; em 08:30 BP 166 / 84; Pulse 74; Resp 15; Pulse Ox 99% on R/A; hb 09:30 BP 156 / 82; Pulse 72; Resp 16; Pulse Ox 100% on R/A; hb 06:15 Body Mass Index 22.31 (58.97 kg, 162.56 cm) lp1 MDM: 06:18 Patient medically screened. pm1 08:55 Data reviewed: vital signs. Data interpreted: Pulse oximetry: on room air is 96 %. pm1 Interpretation: normal. Counseling: I had a detailed discussion with the patient and/or guardian regarding: the historical points, exam findings, and any diagnostic results supporting the discharge/admit diagnosis, lab results, radiology results. 08:55 Special discussion: Based on the patient's Hx, exam, and Dx evaluation, there is no pm1 indication for emergent surgery or inpatient Tx. It is understood by the patient/guardian that if the Sx's persist or worsen they need to return immediately for re-evaluation. Discussed with the patient that there are no abnormalities with the lab and repeat CT abd/pelvis from 3 days ago. Recommended for the patient to follow up with GI for further work up and treatment. 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 05/16 06:31 Order name: Basic Metabolic Panel; Complete Time: 07:03 pm1 05/16 06:31 Order name: CBC with Diff; Complete Time: 06:54 pm1 05/16 06:31 Order name: Hepatic Function; Complete Time: 07:03 pm1 05/16 06:31 Order name: Lipase; Complete Time: 07:03 pm1 05/16 07:05 Order name: Urine Microscopic Only pm1 05/16 07:05 Order name: Urine Microscopic Only; Complete Time: 08:54 EDMS 05/16 06:31 Order name: IV Saline Lock; Complete Time: 06:36 pm1 05/16 06:31 Order name: Labs collected and sent; Complete Time: 06:36 pm1 05/16 06:35 Order name: CT Abd/Pelvis - IV Contrast Only; Complete Time: 08:01 pm05/16 07:05 Order name: Urine Dipstick-Ancillary (obtain specimen); Complete Time: 07:57 pm1 05/16 08:05 Order name: Urine Dipstick--Ancillary (enter results) eb Administered Medications: 06:43 Drug: NS 0.9% 1000 ml Route: IV; Rate: 125 ml/hr; Site: right antecubital; lp1 09:27 Follow up: Response: No adverse reaction; IV Status: Completed infusion; IV Intake: hb 325ml 07:51 Drug: Demerol 25 mg Route: IVP; Site: right antecubital; em 08:30 Follow up: Response: No adverse reaction hb 07:52 Drug: Phenergan 12.5 mg Route: IVP; Site: right antecubital; em 08:22 Follow up: Response: No adverse reaction hb Disposition: 21:32 Co-signature as Attending Physician, John Ramon MD. rn Disposition: 05/16/20 08:58 Discharged to Home. Impression: Unspecified abdominal pain. - Condition is Stable. - Discharge Instructions: Abdominal Pain, Adult. - Prescriptions for Phenergan 25 mg Rectal Suppository - insert 1 suppository by RECTAL route every 6 hours As needed; 12 suppository. - Medication Reconciliation Form, Thank You Letter, Antibiotic Education, Prescription Opioid Use form. - Follow up: Emergency Department; When: As needed; Reason: Worsening of condition. Follow up: Private Physician; When: 2 - 3 days; Reason: Recheck today's complaints, Continuance of care, Re-evaluation by your physician. - Problem is new. - Symptoms have improved. Signatures: Dispatcher [employer] EDRey Lowe RN RN Jose Armando Melara RN RN John Huston MD MD rn Pena, Laura, RN RN lp1 Yehuda Marte, GAVINO SUGAR MIXER pm1 Richa Hathaway RN Corrections: (The following items were deleted from the chart) 10:12 08:58 05/16/2020 08:58 Discharged to Home. Impression: Unspecified abdominal pain. em Condition is Stable. Forms are Medication Reconciliation Form, Thank You Letter, Antibiotic Education, Prescription Opioid Use. Follow up: Emergency Department; When: As needed; Reason: Worsening of condition. Follow up: Private Physician; When: 2 - 3 days; Reason: Recheck today's complaints, Continuance of care, Re-evaluation by your physician. Problem is new. Symptoms have improved. pm1
--- NOTE | 2020-05-16 08:59 | ER ---
Nurse's Notes [facility] Name: Milan Weir Age: 80 yrs Sex: Female : 1940 Arrival Date: 05/16/2020 Time: 06:15 Bed 7 Private MD: Diagnosis: Unspecified abdominal pain Presentation: 05/16 06:21 Chief complaint: EMS states: Bilateral lower quadrant abdominal pain, also reports sg having very dark concentrated urine as well as pain in the flank areas of her back. Coronavirus screen: Client denies travel out of the [place] in the last 14 days. At this time, the client does not indicate any symptoms associated with coronavirus-19. Ebola Screen: Patient negative for fever greater than or equal to 101.5 degrees Fahrenheit, and additional compatible Ebola Virus Disease symptoms Patient denies exposure to infectious person. Patient denies travel to an Ebola-affected area in the 21 days before illness onset. No symptoms or risks identified at this time. Initial Sepsis Screen: Does the patient meet any 2 criteria? No. Patient's initial sepsis screen is negative. Does the patient have a suspected source of infection? Yes: Dysuria/Frequency/Urgency/UTI. Risk Assessment: Do you want to hurt yourself or someone else? Patient reports no desire to harm self or others. Onset of symptoms was May 16, 2020. Care prior to arrival: Medication(s) given: Normal saline infusion, 1000 mL, Phenergan, 12.5 mg, Ketorolac 30 mg IVP IV initiated. Transition of care: patient was not received from another setting of care. 06:21 Acuity: JARRETT 3 sg 06:21 Method Of Arrival: EMS: [facility] sg Historical: - Allergies: 06:23 tramadol; sg 06:23 Tylenol-Codeine; sg - Home Meds: 06:36 Effexor Oral [Active]; lp1 - PMHx: 06:23 Alzheimers; COPD; Hernia; Pancreatitis; sg - PSHx: 06:23 Cholecystectomy; sg 06:36 Appendectomy; lp1 - Immunization history:: Adult Immunizations unknown. - Social history:: Smoking status: Patient reports the use of cigarette tobacco products. Screenin:33 Abuse screen: Denies threats or abuse. Denies injuries from another. Nutritional lp1 screening: No deficits noted. Tuberculosis screening: No symptoms or risk factors identified. Fall Risk Total Owen Fall Scale indicates High Risk Score (45 or more points). Fall prevention measures have been instituted. Side Rails Up X 2 As available patient and family educated on Fall Prevention Program and Strategies. Assessment: 06:34 General: Appears in no apparent distress. Behavior is appropriate for age. Pain: lp1 Complains of pain in abdomen Pain currently is 10 out of 10 on a pain scale. Quality of pain is described as pressure. Neuro: Level of Consciousness is awake, alert, obeys commands, Oriented to person, place, situation. Cardiovascular: Patient's skin is warm and dry. Respiratory: Airway is patent Respiratory effort is even, Breath sounds are clear bilaterally. GI: Abdomen is round Bowel sounds present X 4 quads. Reports lower abdominal pain, upper abdominal pain, bloating, nausea, vomiting. : Reports burning with urination. EENT: No signs and/or symptoms were reported regarding the EENT system. Derm: Skin is fragile, is thin, with poor turgor Skin is dry, Skin is normal. Musculoskeletal: No deficits noted. 07:20 General: Appears in no apparent distress. uncomfortable, Behavior is cooperative. Pain: em Complains of pain in back. Neuro: Level of Consciousness is awake, alert, obeys commands, Oriented to person, place, situation. Cardiovascular: Capillary refill < 3 seconds Patient's skin is warm and dry. Respiratory: Airway is patent Respiratory effort is even, unlabored, Respiratory pattern is regular, symmetrical. GI: Abdomen is round Bowel sounds present X 4 quads. Reports lower abdominal pain, upper abdominal pain, nausea. Derm: Skin is intact, is fragile, is thin, Skin is pink, warm \T\ dry. Musculoskeletal: Capillary refill < 3 seconds, Range of motion: intact in all extremities. 08:15 Reassessment: Patient appears in no apparent distress at this time. No changes from previously documented assessment. Patient and/or family updated on plan of care and expected duration. Pain level reassessed. 09:15 Reassessment: Patient appears in no apparent distress at this time. No changes from previously documented assessment. Patient and/or family updated on plan of care and expected duration. Pain level reassessed. 09:30 Reassessment: Discharge ordered, awaiting transportation at this time. Daughter en hb route. 10:05 Reassessment: Patient appears in no apparent distress at this time. No changes from hb previously documented assessment. Patient and/or family updated on plan of care and expected duration. Pain level reassessed. Vital Signs: 06:15 BP 149 / 109; Pulse 80; Resp 18; Temp 97.8(O); Pulse Ox 98% on R/A; Weight 58.97 kg lp1 (R); Height 5 ft. 4 in. (162.56 cm); Pain 10/10; 06:35 BP 168 / 97; Pulse 78; Resp 18; Pulse Ox 99% on R/A; lp1 07:20 BP 179 / 86; Pulse 75; Resp 18; Pulse Ox 96% on R/A; Pain 10/10; em 08:30 BP 166 / 84; Pulse 74; Resp 15; Pulse Ox 99% on R/A; hb 09:30 BP 156 / 82; Pulse 72; Resp 16; Pulse Ox 100% on R/A; hb 06:15 Body Mass Index 22.31 (58.97 kg, 162.56 cm) lp1 ED Course: 06:15 Patient arrived in ED. sg 06:15 Initial lab(s) drawn, by me, sent to lab. Maintain EMS IV. Dressing intact. Good blood lp1 return noted. Site clean \T\ dry. Gauge \T\ site: 20g IV to R AC. 06:18 Yehuda Marte NP is PHCP. pm1 06:18 John Ramon MD is Attending Physician. pm1 06:22 Triage completed. sg 06:32 Jo Mckinley, RN is Primary Nurse. lp1 06:33 Arm band placed on right wrist. lp1 06:35 Patient has correct armband on for positive identification. Bed in low position. Call lp1 light in reach. Pulse ox on. NIBP on. 07:41 CT Abd/Pelvis - IV Contrast Only In Process Unspecified. EDMS 08:05 Primary Nurse role handed off by Jo Mckinley, SANDY eb 09:51 Jose Armando Melara, RN is Primary Nurse. em 09:51 No provider procedures requiring assistance completed. IV discontinued, intact, em bleeding controlled, No redness/swelling at site. Pressure dressing applied. Administered Medications: 06:43 Drug: NS 0.9% 1000 ml Route: IV; Rate: 125 ml/hr; Site: right antecubital; lp1 09:27 Follow up: Response: No adverse reaction; IV Status: Completed infusion; IV Intake: hb 325ml 07:51 Drug: Demerol 25 mg Route: IVP; Site: right antecubital; em 08:30 Follow up: Response: No adverse reaction hb 07:52 Drug: Phenergan 12.5 mg Route: IVP; Site: right antecubital; em 08:22 Follow up: Response: No adverse reaction hb Intake: 09:27 IV: 325ml; Total: 325ml. hb Outcome: 08:58 Discharge ordered by MD. pm1 10:12 Discharged to home via wheelchair, with family. em 10:12 Condition: good 10:12 Discharge instructions given to patient, Instructed on discharge instructions, follow up and referral plans. medication usage, Demonstrated understanding of instructions, follow-up care, medications, Prescriptions given X 1. 10:12 Patient left the ED. em Signatures: Dispatcher [employer] EDMS Rey Awad RN RN Jose Armando Melara RN RN Jo Mckinley RN RN lp1 Yehuda Marte NP SACK SORTER pm1 Richa Hathaway RN RN Marsha Villa Corrections: (The following items were deleted from the chart) 06:33 06:21 Care prior to arrival: Medication(s) given: Phenergan, 12.5 mg, Ketorolac 30 mg lp1 IVP IV initiated. sg
[2020-05-16 10:24] VITALS: TEMP 97.8
[2020-05-16 10:29] VITALS: BP 156/82; O2SAT 100
[2020-05-16 11:00] LABS: Urine Blood NEGATIVE (NEG); Urine Glucose NEGATIVE (NEG); Urine Protein NEGATIVE (NEG); Urine pH 8.5 (5.0-7.0)
== END 2020-05-16 10:12 | disposition home or self-care (01) ==
LOC: ER 06:08
DX: R10.30 Lower abdominal pain, unspecified (principal); F17.210 Nicotine dependence, cigarettes, uncomplicated; G30.9 Alzheimer's disease, unspecified; F02.80 Dementia in other diseases classified elsewhere, unspecified severity, without behavioral disturbance, psychotic disturbance, mood disturbance, and anxiety; Z88.5 Allergy status to narcotic agent
CPT/HCPCS: 96361; 85025; 80048; 36415; 80076; 83690; 74177; 96375; 96374; 99284; Q9967; J2550; J2175; J7030; 81003; 81015

== ENCOUNTER 2020-05-28 02:26 | Inpatient (IN) | payer OTHER, BC ==
--- OUTSIDE RECORDS SUMMARY | 2020-05-28 02:29 | XMS REPORT | Continuity of Care Document ---
:1940 Author Organization [facility] t Address [address] [place] [address] Care Team Providers Name Role Phone IVONSON [...] code = BUN) 16.0 mg/dl 6.0-17.0 CREATININE, [id number] 09:33:00 Test Item Value Reference Range Interpretation [...]
[2020-05-28] MEDS ORDERED: CEFTRIAXONE 1000 MG/VIAL ONE (03:46)
[2020-05-28] MEDS ORDERED: NA CHLORIDE 0.9% 1,000 ML ONE ×2 (03:46→05:05)
[2020-05-28] MEDS ORDERED: NA CHLORIDE 0.9% 50 ML IV ONE (03:46)
[2020-05-28 03:49] LABS: Absolute Lymphocytes (CBC) 1.2 K/uL (0.7-4.9); Basophils % 0.5 % (0-1.3); Hematocrit 40.5 % (36.0-45.0); Lymphocytes % 13.9 % (15.3-44.8); MPV 8.3 fL (7.6-11.3); RBC Red Blood Cell Count 4.47 M/uL (3.86-4.86)
[2020-05-28 03:59] LABS: Protime INR 0.93
[2020-05-28 04:14] LABS: ALT/SGPT 17 U/L (12-78); AST/SGOT 16 U/L (15-37); Albumin 3.5 g/dL (3.4-5.0); Alkaline Phosphatase 82 U/L (45-117); BUN Blood Urea Nitrogen 10 mg/dL (7-18); Bicarbonate 27 mmol/L (21-32); Bilirubin Direct 0.1 mg/dL (0-0.2); Bilirubin Total 0.5 mg/dL (0.2-1.0); Glucose Level 141 mg/dL (74-106); Lipase 1523 U/L (73-393); Magnesium 2.3 mg/dL (1.8-2.4); NT PRO-BNP 47 pg/mL (<450); Potassium 3.3 mmol/L (3.5-5.1); Sodium Level 141 mmol/L (136-145); Troponin (Emerg Dept Use Only) < 0.02 ng/mL (0.0-0.045)
[2020-05-28] MEDS ORDERED: FENTANYL CITR 100 MCG/2 ML ONE (04:29)
[2020-05-28] MEDS ORDERED: ONDANSETRON 4 MG/2 ML VIAL ONE (04:29)
[2020-05-28] MEDS ORDERED: FAMOTIDINE 20 MG/2 ML VIAL IV ONE (04:30)
[2020-05-28] MEDS ORDERED: NS KCL 20MEQ 1,000 ML IV ONE (05:05)
--- NOTE | 2020-05-28 05:06 | EDPHYS ---
Physician Documentation [facility] Name: Milan Weir Age: 80 yrs Sex: Female : 1940 Arrival Date: 05/28/2020 Time: 02:28 Bed 2 Private MD: RASHAAD Physician Sean Seymour HPI: 05/28 03:51 This 80 yrs old Female presents to ER via EMS with complaints of Weakness. nargis 03:51 The patient presents to the emergency department with weakness of the. nargis 03:52 The patient presents to the emergency department with nausea, vomiting, that is nargis continuous, abdominal pain, of the right upper quadrant and left upper quadrant. Onset: The symptoms/episode began/occurred 3 day(s) ago. Possible causes: unknown. The symptoms are aggravated by nothing. The symptoms are alleviated by nothing. nausea and vomiting, malaise, abdominal pain. Associated signs and symptoms: The patient has no apparent associated signs or symptoms. Severity of symptoms: At their worst the symptoms were moderate in the emergency department the symptoms are unchanged. Historical: - Allergies: 02:37 tramadol; jb4 02:37 Tylenol-Codeine; jb4 02:37 Morphine; jb4 - Home Meds: 02:37 Effexor Oral [Active]; jb4 - PMHx: 02:37 Alzheimers; COPD; Hernia; Pancreatitis; jb4 - PSHx: 02:37 Cholecystectomy; Appendectomy; jb4 - Immunization history:: Adult Immunizations unknown. - Social history:: Smoking status: Patient denies any tobacco usage or history of. Patient/guardian denies using alcohol, street drugs. - Family history:: not pertinent. ROS: 03:52 Constitutional: Negative for fever, chills, and weight loss, Eyes: Negative for injury, nargis pain, redness, and discharge, ENT: Negative for injury, pain, and discharge, Neck: Negative for injury, pain, and swelling, Cardiovascular: Negative for chest pain, palpitations, and edema, Respiratory: Negative for shortness of breath, cough, wheezing, and pleuritic chest pain, Back: Negative for injury and pain, : Negative for injury, bleeding, discharge, and swelling, MS/Extremity: Negative for injury and deformity, Skin: Negative for injury, rash, and discoloration, Neuro: Negative for headache, weakness, numbness, tingling, and seizure, Psych: Negative for depression, anxiety, suicide ideation, homicidal ideation, and hallucinations, Allergy/Immunology: Negative for hives, rash, and allergies, Endocrine: Negative for neck swelling, polydipsia, polyuria, polyphagia, and marked weight changes. 03:52 Abdomen/GI: Positive for abdominal pain, nausea and vomiting, abdominal cramps. Exam: 03:52 Constitutional: This is a well developed, well nourished patient who is awake, alert, nargis and in no acute distress. Head/Face: Normocephalic, atraumatic. Eyes: Pupils equal round and reactive to light, extra-ocular motions intact. Lids and lashes normal. Conjunctiva and sclera are non-icteric and not injected. Cornea within normal limits. Periorbital areas with no swelling, redness, or edema. ENT: Nares patent. No nasal discharge, no septal abnormalities noted. Tympanic membranes are normal and external auditory canals are clear. Oropharynx with no redness, swelling, or masses, exudates, or evidence of obstruction, uvula midline. Mucous membranes moist. Neck: Trachea midline, no thyromegaly or masses palpated, and no cervical lymphadenopathy. Supple, full range of motion without nuchal rigidity, or vertebral point tenderness. No Meningismus. Chest/axilla: Normal chest wall appearance and motion. Nontender with no deformity. No lesions are appreciated. Cardiovascular: Regular rate and rhythm with a normal S1 and S2. No gallops, murmurs, or rubs. Normal PMI, no JVD. No pulse deficits. Respiratory: Lungs have equal breath sounds bilaterally, clear to auscultation and percussion. No rales, rhonchi or wheezes noted. No increased work of breathing, no retractions or nasal flaring. Back: No spinal tenderness. No costovertebral tenderness. Full range of motion. Skin: Warm, dry with normal turgor. Normal color with no rashes, no lesions, and no evidence of cellulitis. MS/ Extremity: Pulses equal, no cyanosis. Neurovascular intact. Full, normal range of motion. Neuro: Awake and alert, GCS 15, oriented to person, place, time, and situation. Cranial nerves II-XII grossly intact. Motor strength 5/5 in all extremities. Sensory grossly intact. Cerebellar exam normal. Normal gait. Psych: Awake, alert, with orientation to person, place and time. Behavior, mood, and affect are within normal limits. 03:52 Abdomen/GI: Inspection: abdomen appears normal, Bowel sounds: active, Palpation: mild abdominal tenderness, in all quadrants, Liver: no appreciated palpable abnormalities, Hernia: not appreciated. 07:22 ECG was reviewed by the Attending Physician. [facility] Vital Signs: 02:34 BP 158 / 90; Pulse 64; Resp 16; Temp 97.0(TE); Pulse Ox 99% on R/A; Weight 54.43 kg jb4 (R); Height 5 ft. 4 in. (162.56 cm) (R); Pain 9/10; 04:00 BP 138 / 74; Pulse 68; Resp 16; Pulse Ox 97% on R/A; jb4 04:45 BP 156 / 78; Pulse 71; Resp 12; Pulse Ox 96% on R/A; jb4 06:00 BP 153 / 81; Pulse 74; Resp 15; Pulse Ox 96% on R/A; jb4 07:42 BP 169 / 91; Pulse 65; Resp 18; Temp 97.4; Pulse Ox 96% on R/A; ph 02:34 Body Mass Index 20.60 (54.43 kg, 162.56 cm) jb4 MDM: 02:44 Patient medically screened. nargis 03:55 Differential diagnosis: Nonspecific abd pain, gastritis, pancreatitis, diverticulitis. [facility] Data reviewed: vital signs, nurses notes, lab test result(s), EKG, radiologic studies, CT scan, plain films. Data interpreted: tank calibrator: rate is 64 beats/min, rhythm is regular. Test interpretation: by ED physician or midlevel provider: ECG, plain radiologic studies. Counseling: I had a detailed discussion with the patient and/or guardian regarding: the historical points, exam findings, and any diagnostic results supporting the discharge/admit diagnosis, the presence of at least one elevated blood pressure reading (>120/80) during this emergency department visit, lab results, radiology results, the need for further work-up and treatment in the hospital. 05/28 02:46 Order name: Basic Metabolic Panel; Complete Time: 04:34 [facility] 05/28 02:46 Order name: CBC with Diff; Complete Time: 03:57 [facility] 05/28 02:46 Order name: LFT's; Complete Time: 04:34 [facility] 05/28 02:46 Order name: Magnesium; Complete Time: 04:34 [facility] 05/28 02:46 Order name: NT PRO-BNP; Complete Time: 04:34 [facility] 05/28 02:46 Order name: PT-INR; Complete Time: 04:34 [facility] 05/28 02:46 Order name: Troponin (emerg Dept Use Only); Complete Time: 04:34 [facility] 05/28 02:46 Order name: Lipase; Complete Time: 04:34 [facility] 05/28 02:46 Order name: Blood Culture Adult (2) [facility] 05/28 02:46 Order name: Lactate; Complete Time: 04:34 [facility] 05/28 02:47 Order name: Urine Culture [facility] 05/28 05:06 Order name: Lipid Profile; Complete Time: 06:03 [facility] 05/28 05:29 Order name: Lipase EDSC 05/28 05:29 Order name: Lipase EDMS 05/28 02:46 Order name: XRAY Chest (1 view) [facility] 05/28 02:46 Order name: EKG; Complete Time: 02:47 [facility] 05/28 02:46 Order name: Cardiac monitoring; Complete Time: 03:26 [facility] 05/28 02:46 Order name: EKG - Nurse/Tech; Complete Time: 04:10 [facility] 05/28 02:46 Order name: IV Saline Lock; Complete Time: 03:25 [facility] 05/28 02:46 Order name: Labs collected and sent; Complete Time: 03:25 [facility] 05/28 04:38 Order name: CT Abd/Pelvis - IV Contrast Only 05/28 05:29 Order name: Lipase EDMS 05/28 02:46 Order name: O2 Per Protocol; Complete Time: 03:25 [facility] 05/28 02:46 Order name: O2 Sat Monitoring; Complete Time: 03:25 [facility] 05/28 02:47 Order name: Urine Dipstick-Ancillary (obtain specimen); Complete Time: 06:10 [facility] EC:22 Rate is 81 beats/min. Rhythm is regular. QRS [place] is Normal. VA interval is normal. QRS nargis interval is normal. QT interval is normal. No Q waves. T waves are Normal. No ST changes noted. Clinical impression: NSR w/ Non-specific ST/T Changes and No evidence of ischemia. Interpreted by me. Reviewed by me. Administered Medications: 04:00 Drug: NS 0.9% 1000 ml Route: IV; Rate: 1 bolus; Site: right antecubital; 4 05:00 Follow up: Response: No adverse reaction; IV Status: Completed infusion 4 04:00 Drug: Rocephin 1 grams {Note: Administered IVPB, No premix IVP available..} Route: IV; jb4 Rate: per protocol; Site: right antecubital; 04:15 Follow up: Response: No adverse reaction; IV Status: Completed infusion jb4 04:15 Drug: Zofran (Ondansetron) 4 mg Route: IVP; Site: right antecubital; 4 04:59 Follow up: Response: No adverse reaction; Nausea is decreased; RASS: Alert and Calm (0) 4 04:15 Drug: Pepcid 20 mg Route: IVP; Site: right antecubital; jb4 05:00 Follow up: Response: No adverse reaction [facility] 04:17 Drug: fentaNYL (PF) 25 mcg Route: IVP; Site: right antecubital; jb4 04:59 Follow up: Response: No adverse reaction; Pain is decreased; RASS: Alert and Calm (0) [facility] 05:30 Drug: NS 0.9% 1000 ml Route: IV; Rate: 1 bolus; Site: right antecubital; 4 07:41 Follow up: Response: No adverse reaction; IV Status: Completed infusion; IV Intake: ph 1000ml 05:30 Drug: NS 0.9% with KCl 20 mEq/L 1000 ml Route: IV; Rate: 125 ml/hr; Site: right [facility] antecubital; 07:41 Follow up: IV Status: Infusion continued upon transfer ph 06:59 Not Given (Patient Refused): fentaNYL (PF) 25 mcg IVP once; RASS on ADMIN: Combtv4, jb4 Very Agttd3, Agttd2, Rstlss1, AlertClm0, Drwsy-1, Lt Sdtn-2, Mod Sdtn-3, Dp Sdtn-4, UnArsble-5 Disposition: 05/28/20 05:06 Hospitalization ordered by Jsoe David Henley for Inpatient Admission. Preliminary diagnosis are Abdominal tenderness - Pancreatitis, Vomiting, Volume depletion, Hypokalemia, Acute pancreatitis, Urinary tract infection, site not specified. - Bed requested for Telemetry/MedSurg (Inpatient). - Status is Inpatient Admission. sv - Condition is Stable. - Problem is new. - Symptoms have improved. Signatures: Dispatcher [employer] Lida Jj, RN RN Sean Oro MD MD cha Lasagna, Tonya, RN RN tl1 Tello Darling, SANDY RN jb4 Annie Baltazar RN Corrections: (The following items were deleted from the chart) 06:02 05:06 Hospitalization Ordered by Jose David Henley MD for Inpatient Admission. Preliminary tl1 diagnosis is Abdominal tenderness - Pancreatitis; Vomiting; Volume depletion; Hypokalemia; Acute pancreatitis. Bed requested for Telemetry/MedSurg (Inpatient). Status is Inpatient Admission. Condition is Stable. Problem is new. Symptoms have improved. nargis 06:04 06:02 05/28/2020 05:06 Hospitalization Ordered by Jose David Henley MD for Inpatient nargis Admission. Preliminary diagnosis is Abdominal tenderness - Pancreatitis; Vomiting; Volume depletion; Hypokalemia; Acute pancreatitis. Bed requested for Telemetry/MedSurg (Inpatient). Status is Inpatient Admission. Condition is Stable. Problem is new. Symptoms have improved. tl1 08:00 06:04 05/28/2020 05:06 Hospitalization Ordered by Jose David Henley MD for Inpatient sv Admission. Preliminary diagnosis is Abdominal tenderness - Pancreatitis; Vomiting; Volume depletion; Hypokalemia; Acute pancreatitis; Urinary tract infection, site not specified. Bed requested for Telemetry/MedSurg (Inpatient). Status is Inpatient Admission. Condition is Stable. Problem is new. Symptoms have improved. nargis
--- NOTE | 2020-05-28 05:06 | ER ---
Nurse's Notes [facility] Name: Milan Weir Age: 80 yrs Sex: Female : 1940 Arrival Date: 05/28/2020 Time: 02:28 Bed 2 Private MD: Diagnosis: Abdominal tenderness-Pancreatitis;Vomiting;Volume depletion;Hypokalemia;Acute pancreatitis;Urinary tract infection, site not specified Presentation: 05/28 02:34 Chief complaint: EMS states: PT reports having organ failure and feeling weak with jb4 nausea and vomiting. Pt given 12.5 of Phenergan, has a 20g IV to the [facility]. Coronavirus screen: Client denies travel out of the [place] in the last 14 days. At this time, the client does not indicate any symptoms associated with coronavirus-19. Ebola Screen: No symptoms or risks identified at this time. Initial Sepsis Screen: Does the patient meet any 2 criteria? No. Patient's initial sepsis screen is negative. Does the patient have a suspected source of infection? No. Patient's initial sepsis screen is negative. Risk Assessment: Do you want to hurt yourself or someone else? Patient reports no desire to harm self or others. Onset of symptoms was May 28, 2020. Transition of care: patient was not received from another setting of care. 02:34 Method Of Arrival: EMS: [facility] jb4 02:34 Acuity: JARRETT 3 jb4 Historical: - Allergies: 02:37 tramadol; jb4 02:37 Tylenol-Codeine; jb4 02:37 Morphine; jb4 - Home Meds: 02:37 Effexor Oral [Active]; jb4 - PMHx: 02:37 Alzheimers; COPD; Hernia; Pancreatitis; jb4 - PSHx: 02:37 Cholecystectomy; Appendectomy; jb4 - Immunization history:: Adult Immunizations unknown. - Social history:: Smoking status: Patient denies any tobacco usage or history of. Patient/guardian denies using alcohol, street drugs. - Family history:: not pertinent. Screenin:30 Abuse screen: Denies threats or abuse. Nutritional screening: No deficits noted. jb4 Tuberculosis screening: No symptoms or risk factors identified. Fall Risk Fall in past 12 months (25 points). IV access (20 points). Total Owen Fall Scale indicates High Risk Score (45 or more points). Fall prevention measures have been instituted. Side Rails Up X 2 Placed Close to Nursing Station Frequent Obs/Assessments Occuring. Assessment: 02:30 General: Appears in no apparent distress. uncomfortable, Behavior is calm, cooperative, jb4 appropriate for age. Pain: Complains of pain in neck Pain does not radiate. Pain currently is 9 out of 10 on a pain scale. Quality of pain is described as aching, sharp. Neuro: Level of Consciousness is awake, alert, obeys commands, Oriented to person, place, time, situation. Cardiovascular: Patient's skin is warm and dry. Respiratory: Airway is patent Respiratory effort is even, unlabored, Respiratory pattern is regular, symmetrical. GI: Reports nausea, vomiting. : No signs and/or symptoms were reported regarding the genitourinary system. EENT: No signs and/or symptoms were reported regarding the EENT system. Derm: Skin is intact, Skin is pink, warm \T\ dry. Musculoskeletal: Circulation, motion, and sensation intact. Range of motion: intact in all extremities. 03:30 Reassessment: Patient appears in no apparent distress at this time. Patient and/or jb4 family updated on plan of care and expected duration. Pain level reassessed. Patient is alert, oriented x 3, equal unlabored respirations, skin warm/dry/pink. 04:58 Reassessment: Patient appears in no apparent distress at this time. Patient and/or jb4 family updated on plan of care and expected duration. Pain level reassessed. Patient is alert, oriented x 3, equal unlabored respirations, skin warm/dry/pink. Patient states feeling better. 06:00 Reassessment: Patient appears in no apparent distress at this time. Patient and/or jb4 family updated on plan of care and expected duration. Pain level reassessed. Patient is alert, oriented x 3, equal unlabored respirations, skin warm/dry/pink. 07:00 Reassessment: Patient appears in no apparent distress at this time. Patient and/or jb4 family updated on plan of care and expected duration. Pain level reassessed. Patient is alert, oriented x 3, equal unlabored respirations, skin warm/dry/pink. Vital Signs: 02:34 BP 158 / 90; Pulse 64; Resp 16; Temp 97.0(TE); Pulse Ox 99% on R/A; Weight 54.43 kg jb4 (R); Height 5 ft. 4 in. (162.56 cm) (R); Pain 9/10; 04:00 BP 138 / 74; Pulse 68; Resp 16; Pulse Ox 97% on R/A; jb4 04:45 BP 156 / 78; Pulse 71; Resp 12; Pulse Ox 96% on R/A; jb4 06:00 BP 153 / 81; Pulse 74; Resp 15; Pulse Ox 96% on R/A; jb4 07:42 BP 169 / 91; Pulse 65; Resp 18; Temp 97.4; Pulse Ox 96% on R/A; ph 02:34 Body Mass Index 20.60 (54.43 kg, 162.56 cm) jb4 ED Course: 02:28 Patient arrived in ED. ag3 02:33 Tello Darling, RN is Primary Nurse. jb4 02:36 Triage completed. jb4 02:37 Arm band placed on right wrist. jb4 02:44 Sean Seymour MD is Attending Physician. nargis 03:10 XRAY Chest (1 view) In Process Unspecified. EDMS 05:04 Jose David Henley MD is Hospitalizing Provider. nargis 05:38 CT Abd/Pelvis - IV Contrast Only In Process Unspecified. EDMS 07:39 Patient has correct armband on for positive identification. Placed in gown. Bed in low ph position. Call light in reach. Side rails up X 1. Pulse ox on. NIBP on. 07:39 No provider procedures requiring assistance completed. Patient admitted, IV remains in ph place. IV started by film processing shift supervisor, 20 RAC. Administered Medications: 04:00 Drug: NS 0.9% 1000 ml Route: IV; Rate: 1 bolus; Site: right antecubital; jb4 05:00 Follow up: Response: No adverse reaction; IV Status: Completed infusion jb4 04:00 Drug: Rocephin 1 grams {Note: Administered IVPB, No premix IVP available..} Route: IV; jb4 Rate: per protocol; Site: right antecubital; 04:15 Follow up: Response: No adverse reaction; IV Status: Completed infusion jb4 04:15 Drug: Zofran (Ondansetron) 4 mg Route: IVP; Site: right antecubital; jb4 04:59 Follow up: Response: No adverse reaction; Nausea is decreased; RASS: Alert and Calm (0) [facility] 04:15 Drug: Pepcid 20 mg Route: IVP; Site: right antecubital; [facility] 05:00 Follow up: Response: No adverse reaction [facility] 04:17 Drug: fentaNYL (PF) 25 mcg Route: IVP; Site: right antecubital; [facility] 04:59 Follow up: Response: No adverse reaction; Pain is decreased; RASS: Alert and Calm (0) [facility] 05:30 Drug: NS 0.9% 1000 ml Route: IV; Rate: 1 bolus; Site: right antecubital; [facility] 07:41 Follow up: Response: No adverse reaction; IV Status: Completed infusion; IV Intake: ph 1000ml 05:30 Drug: NS 0.9% with KCl 20 mEq/L 1000 ml Route: IV; Rate: 125 ml/hr; Site: right [facility] antecubital; 07:41 Follow up: IV Status: Infusion continued upon transfer 06:59 Not Given (Patient Refused): fentaNYL (PF) 25 mcg IVP once; RASS on ADMIN: Combtv4, jb4 Very Agttd3, Agttd2, Rstlss1, AlertClm0, Drwsy-1, Lt Sdtn-2, Mod Sdtn-3, Dp Sdtn-4, UnArsble-5 Intake: 07:41 IV: 1000ml; Total: 1000ml. Outcome: 05:06 Decision to Hospitalize by Provider. nargis 07:40 Admitted to Med/surg accompanied by sunday, via stretcher, room 407, Report called to karin Carpio RN 07:40 Condition: stable 07:40 Instructed on the need for admit. 08:00 Patient left the ED. sv Signatures: Dispatcher [employer] EDLida Beltran RN RN sv Anderson, Corey, MD MD cha Hall, Patricia, RN RN ph Bryson, James, RN RN jb4 Gomez, Alice 3
--- NOTE | 2020-05-28 05:35 | P.HP ---
Certification for Inpatient Patient admitted to: Inpatient With expected LOS: >2 Midnights Patient will require the following post-hospital care: None Practitioner: I am a practitioner with admitting privileges, knowledge of patient current condition, hospital course, and medical plan of care. Services: Services provided to patient in accordance with Admission requirements found in Title 42 Section 412.3 of the Code of Federal Regulations <NandiniElgin - Last Filed: 05/28/20 05:30> Patient History Date of Service: 05/28/20 Reason for admission: Acute pancreatitis History of Present Illness: 80-year-old female with a past medical history of Alzheimer's dementia, COPD and chronic pancreatitis presents to the emergency room complaining of abdominal pain to the right upper and left upper quadrants. States the episode started approximately 3 days ago and has progressively worsened. Admits to nausea and vomiting. In the emergency room patient is alert and oriented. In no distress. Complaining of abdominal pain that is mild now. CT abdomen pelvis pending. Blood work in the ER shows a creatinine of 1.05 with a GFR of 50. Glucose slightly elevated at 141 but the lipase is significantly elevated at 1523. Patient has a history of chronic pancreatitis. Patient will be admitted and further evaluated. - Past Medical/Surgical History Diabetic: No -: COPD -: Alzheimer's disease -: pancreatitis -: liver cirrhosis -: kidney disease -: bladder -: tonsilectomy -: appendectomy -: double mastectomy with reconstruction 1973 -: silicon replacement in 1993 -: gall bladder removed 2002 -: abdominal surgery Psychosocial/ Personal History: correction resident - Family History Mother Notes: ALZEIMER'S. ARTHRITIS Brother -: GI disease Notes: internal bleeding - Social History Smoking Status: Never smoker Alcohol use: No CD- Drugs: No Caffeine use: No Place of Residence: Home <Elgin Delatorre - Last Filed: 05/28/20 05:30> Date of Service: 05/28/20 <Jose David Henley - Last Filed: 05/31/20 04:33> Allergies codeine Allergy (Verified 10/08/18 00:19) Nausea/Vomiting acetaminophen [From Tylenol] Adverse Reaction (Verified 10/08/18 00:19) Nausea/Vomiting tramadol Adverse Reaction (Verified 10/08/18 00:19) Nausea/Vomiting Home Medications: Memantine HCl [Namenda] 1 tab PO DAILY 10/08/18 Venlafaxine HCl *Xr* [Effexor XR] 1 cap PO BEDTIME 10/08/18 Rabeprazole Sodium [Aciphex] 20 mg PO BID 05/28/20 Hydrocodone 10/APAP 325 [[place] 10/325*] 1 tab PO Q12H PRN #40 tab 05/30/20 Lipase/Protease/Amylase [Arabella Cheney 16,800 Unit Cap] 1 each PO AC #90 capsule. 05/30/20 Promethazine Tab [Phenergan*] 25 mg PO Q12H PRN #30 tab 05/30/20 Review of Systems General: As per HPI Eyes: Unremarkable ENT: Unremarkable Respiratory: Unremarkable Cardiovascular: Unremarkable Gastrointestinal: Nausea, Vomiting, Abdominal Pain Genitourinary: Unremarkable Musculoskeletal: Unremarkable Integumentary: Unremarkable Neurological: Weakness, As per HPI Lymphatics: Unremarkable <Elgin Delatorre - Last Filed: 05/28/20 05:30> Physical Examination - Vital Signs Temperature: 97.0 F Blood Pressure: 158/90 Pulse: 64 Respirations: 16 Pulse Ox (%): 99 (RA) - Physical Exam General: Alert, In no apparent distress, Oriented x3 HEENT: Atraumatic, Normocephalic, PERRLA Neck: Supple, No Thyromegaly, Other (Trachea midline) Respiratory: Clear to auscultation bilaterally, Normal air movement Cardiovascular: No edema, Normal pulses, Regular rate/rhythm, Normal S1 S2 Capillary refill: <2 Seconds Gastrointestinal: Normal bowel sounds, Non-distended, Tenderness (Right upper and left upper quadrant mild tenderness to palpation) Musculoskeletal: No clubbing, No swelling, No contractures, No erythema Integumentary: No rashes, No breakdown, No significant lesion Neurological: Normal gait, Normal speech, Normal strength at 5/5 x4 extr, Normal tone - Studies Laboratory Data (last 24 hrs) 05/28/20 03:20: PT 11.0, INR 0.93 05/28/20 03:20: WBC 8.4 D, Hgb 13.7, Hct 40.5, Plt Count 239 05/28/20 03:20: Sodium 141, Potassium 3.3 L, BUN 10, Creatinine 1.05, Glucose 141 H, Magnesium 2.3, Total Bilirubin 0.5, AST 16, ALT 17, Alkaline Phosphatase 82, Lipase 1523 H <Elgin Delatorre - Last Filed: 05/28/20 05:30> - Studies Microbiology Data (last 24 hrs): 05/28/20 05:17 Catheterized Urine [place] Count - Final No growth. 05/28/20 05:17 Catheterized Urine - Final No growth. <Jose David Henley - Last Filed: 05/31/20 04:33> Assessment and Plan - Plan Impression: Acute pancreatitis: Alzheimer's dementia: History of COPD: Plan: Acute pancreatitis: Patient noted to having elevated lipase levels of 1523. Patient started on IV pain medication, Zofran prn, NPO. Monitor Alzheimer's dementia: At baseline Will resume home meds when verified. History of COPD: not requiring O2 support at this time. monitor Discharge Plan: Retirement Plan to discharge in: Greater than 2 days - Advance Directives Does patient have a Living Will: Yes Does patient have a Durable POA for Healthcare: No - Code Status/Comfort Care Code Status Assessed: Yes Time Spent Managing Pts Care (In Minutes): 55 <Elgin Delatorre - Last Filed: 05/28/20 05:30> Date of Service: 05/28/20 I agree with plan of care as mentioned above. Case discussed with physician marketing assistant retail division. NPO and IV hydration. <Jose David Henley - Last Filed: 05/31/20 04:33>
--- NOTE | 2020-05-28 07:20 | RAD REPORT ---
EXAM DESCRIPTION: [place] Single View05/28/2020 3:10 am CLINICAL HISTORY: Cough COMPARISON: 2019 FINDINGS: The lungs appear clear of acute infiltrate. The heart is normal size. A central venous li ne has its tip in the superior vena cava IMPRESSION: No acute abnormalities displayed
--- NOTE | 2020-05-28 07:20 | EKG ---
Test Date: 2020-05-28 Test Time: 03:54:40 Senior Web Engineer: HERIBERTO MEASUREMENT RESULTS: Intervals: Rate: 65 KS: 152 QRSD: 72 QT: 418 QTc: 434 Newman: P: 77 KS: 152 QRS: 60 T: 73 INTERPRETIVE STATEMENTS: Normal sinus rhythm Nonspecific T wave abnormality Abnormal ECG Compared to ECG 12/10/2019 20:52:27 T-wave abnormality now present ST (T wave) deviation no longer present Electronically Signed On 05-28-20 07:19:48 CDT by Segundo Blair
[2020-05-28 08:16] VITALS: BMI 20.5
[2020-05-28] MEDS: KCL 20 MEQ/100 mL IVPB 20 MEQ/100 ML BAG IV SCH ×2 (09:09→12:15)
[2020-05-28] MEDS: NA CHLORIDE 0.9% 1,000 ML IV SCH ×3 (09:09→18:21)
[2020-05-28] MEDS: ENOXAPARIN 40 MG/0.4 ML SQ SCH (09:09)
[2020-05-28] MEDS: ONDANSETRON 4 MG/2 ML VIAL IV PRN ×3 (09:10→21:32)
[2020-05-28] MEDS: FENTANYL CITR 100 MCG/2 ML IV PRN ×3 (09:55→21:34)
[2020-05-28 14:51] LABS: Urine Appearance CLEAR; Urine Bilirubin NEGATIVE (NEG); Urine Blood NEGATIVE (NEG); Urine Color YELLOW; Urine Glucose NEGATIVE (NEG); Urine Protein NEGATIVE (NEG); Urine Specific Gravity 1.015 (1.005-1.030); Urine Urobilinogen 0.2 mg/dL (0.2-1.0); Urine pH 6.5 (5.0-7.0)
[2020-05-28 14:52] LABS: Urine Microscopic Reflex NO UMIC
--- NOTE | 2020-05-28 17:49 | RAD REPORT ---
EXAM DESCRIPTION: CT - Abdomen Pelvis W Contrast - 05/28/2020 6:40 am CLINICAL HISTORY: The patient is 80 years old and is Female; pancreatitis;Abd pain TECHNIQUE: Axial computed tomography images of the abdomen and pelvis with intravenous contrast. S agittal and coronal reformatted images were created and reviewed. This CT exam was performed using one or more of the following dose reduction techniques: automated exposure control, adjustment of t he mA and/or kV according to patient size, and/or use of iterative reconstruction technique. COMPARISON: Prior images from May 13, 2020 are not available for review at this time. FINDINGS: Lung bases: Unremarkable. No mass. No consolidation. ABDOMEN: Liver: Unremarkable. No mass. Gallbladder and bile ducts: Cholecystectomy without biliary dilatation. Pancreas: No findings to suggest acute pancreatitis. Spleen: Unremarkable. No splenomegaly. Adrenals: Unremarkable. No mass. Kidneys and ureters: Unremarkable. No solid mass. No hydronephrosis. Stomach and bowel: Colonic diverticulosis. No bowel dilatation or obstruction. No bowel wall thickening. Stomach is unremarkable. PELVIS: Appendix: The appendix is not visualized. No pericecal inflammation to suggest acute appendiciti s. Bladder: No bladder calculus. Reproductive: Hysterectomy. No adnexal mass. ABDOMEN and PELVIS: Intraperitoneal space: Unremarkable. No free air. No significant fluid collection. Bones/joints: Degenerative changes in the hips. Degenerative changes finding. Schmorl's nodes at L1 and L5. No acute fracture visualized. No dislocation. Soft tissues: Mild pericystic fat stranding. There are bilateral breast implants. Vasculature: Unremarkable. No abdominal aortic aneurysm. Lymph nodes: No pathologically enlarged lymph nodes. IMPRESSION: 1. Mild pericystic fat stranding. Correlate clinically for cystitis/UTI. 2. Cholecystectomy without biliary dilatation. 3. Colonic diverticulosis. Electronically signed by: Lida Acevedo MD 05/28/2020 5:56 AM CDT Due to temporary technical issues with the PACS/Fluency reporting system, reports are being signed by the in house radiologist without review as a courtesy to ensure prompt reporting. The interpreting r adiologist is fully responsible for the content of the report.
[2020-05-29] MEDS: KCL 20 MEQ/100 mL IVPB 20 MEQ/100 ML BAG IV SCH ×2 (00:16→03:18)
[2020-05-29] MEDS: NA CHLORIDE 0.9% 1,000 ML IV SCH ×3 (05:02→23:48)
[2020-05-29] MEDS: ONDANSETRON 4 MG/2 ML VIAL IV PRN ×3 (06:13→20:25)
[2020-05-29] MEDS: FENTANYL CITR 100 MCG/2 ML IV PRN ×3 (06:15→20:25)
[2020-05-29 06:36] LABS: Absolute Lymphocytes (CBC) 1.6 K/uL (0.7-4.9); Basophils % 0.7 % (0-1.3); Hematocrit 38.9 % (36.0-45.0); Lymphocytes % 30.9 % (15.3-44.8); MPV 8.1 fL (7.6-11.3); RBC Red Blood Cell Count 4.31 M/uL (3.86-4.86)
[2020-05-29 06:50] LABS: Magnesium 2.1 mg/dL (1.8-2.4); Potassium 4.2 mmol/L (3.5-5.1)
[2020-05-29] MEDS: ENOXAPARIN 40 MG/0.4 ML SQ SCH (08:00)
[2020-05-29] MEDS ORDERED: PROMETHAZINE 25 MG TABLET PO PRN (15:16)
[2020-05-29] MEDS: HYDROCODONE/APAP 10/325 TAB PO PRN (16:09)
[2020-05-29] MEDS: PROMETHAZINE 25 MG TABLET PO PRN (16:11)
[2020-05-29] MEDS: PANTOPRAZOLE 40MG TABLET PO SCH (20:25)
[2020-05-29] MEDS ORDERED: VENLAFAXINE HCL XR 75 MG CAP PO SCH (21:00)
[2020-05-29] MEDS ORDERED: MEMANTINE HCL 10 MG TABLET PO SCH (21:00)
[2020-05-29 23:03] VITALS: O2SAT 96
[2020-05-30] MEDS: FENTANYL CITR 100 MCG/2 ML IV PRN (00:08)
[2020-05-30] MEDS: PROMETHAZINE 25 MG TABLET PO PRN (04:08)
[2020-05-30] MEDS: HYDROCODONE/APAP 10/325 TAB PO PRN (04:08)
[2020-05-30] MEDS: ENOXAPARIN 40 MG/0.4 ML SQ SCH (08:25)
[2020-05-30] MEDS: PANTOPRAZOLE 40MG TABLET PO SCH (08:25)
[2020-05-30] MEDS: ONDANSETRON 4 MG/2 ML VIAL IV PRN (08:37)
[2020-05-30] MEDS ORDERED: MEMANTINE HCL 10 MG TABLET PO SCH (09:00)
[2020-05-30 13:00] VITALS: BP 170/83; TEMP 98.5
== END 2020-05-30 13:00 | disposition home or self-care (01) | DRG 440 ==
LOC: ER 02:26 → ERHOLD 06:18 → 4TH 07:40
PROVIDERS: ADMIT Hospitalist; ATTEND Hospitalist
DX: K85.90 Acute pancreatitis without necrosis or infection, unspecified (principal); G30.9 Alzheimer's disease, unspecified; F02.80 Dementia in other diseases classified elsewhere, unspecified severity, without behavioral disturbance, psychotic disturbance, mood disturbance, and anxiety; J44.9 Chronic obstructive pulmonary disease, unspecified; Z90.49 Acquired absence of other specified parts of digestive tract; Z88.5 Allergy status to narcotic agent; Z88.6 Allergy status to analgesic agent; Z79.899 Other long term (current) drug therapy; Z79.891 Long term (current) use of opiate analgesic; Z20.828 Contact with and (suspected) exposure to other viral communicable diseases
CPT/HCPCS: 36415; 71045; 74177; 80048; 80061; 80076; 81003; 83605; 83690; 83735; 83880; 84132; 84484; 85025; 85610; 87040; 87086; 87088; 93005; 96361; 96374; 96375; 99285; J1650; J2405; J3010; J3480; J7030; Q0169; Q9967; U0002

== ENCOUNTER 2020-11-16 15:09 | Emergency (ER) | payer OTHER, BC ==
--- OUTSIDE RECORDS SUMMARY | 2020-11-16 15:11 | XMS REPORT | Continuity of Care Document ---
:1940 Author Organization [facility] t Address [address] [place] [address] Care Team Providers Name Role Phone Radiology Attending Clinician Unavailable GENESIS Attending Clinician Unavailable GENESIS Admitting Clinician Unavailable Problems This patient has no known problems. Allergies, Adverse Reactions, Alerts This patient has no known allergies or adverse reactions. Medications This patient has no known medications. Procedures This patient has no known procedures. Encounters Start End Encounter Admission Attending Care Care Encounter Source Date/Time Date/Time Type Type Clinicians Facility Department ID 2020-08-12 2020-08-12 [facility] Radiology [facility] [id number] 15:00:00 23:59:00 Encounter [facility] [id number] [place] [id number] [place] [id number] Results Test Description Test Time Test Comments Results Result Comments Source BLOOD UREA NTIROGEN (BUN) 2016-12-27 09:33:00 Test Item Value Reference Range Interpretation Comme nts BUN (test code = BUN) 16.0 mg/dl 6.0-17.0 CREATININE, [id number] 09:33:00 Test Item Value Reference Range Interpretation Comments Creatinine (test 1.0 mg/dl 0.4-1.2 code = CREA) EGFR if >60 [place] (test code mL/min/1.73m\ = EGFRAA) S\2 EGFR if Non- 57 Estimate d Glomerular [place] (test code mL/min/1.73m\ Filtrat ion Rate (eGFR) [...]
[2020-11-16 15:30] LABS: Absolute Lymphocytes (CBC) 2.1 K/uL (0.7-4.9); Basophils % 0.9 % (0-1.3); Hematocrit 37.4 % (36.0-45.0); RBC Red Blood Cell Count 4.09 M/uL (3.86-4.86)
[2020-11-16] MEDS ORDERED: MEPERIDINE HCL 25 MG/ML SYR ONE (15:43)
[2020-11-16] MEDS ORDERED: NA CHLORIDE 0.9% 500 ML ONE (15:43)
[2020-11-16] MEDS ORDERED: ONDANSETRON 4 MG/2 ML VIAL ONE (15:43)
[2020-11-16 15:51] LABS: ALT/SGPT 27 U/L (12-78); AST/SGOT 20 U/L (15-37); Alkaline Phosphatase 76 U/L (45-117); BUN Blood Urea Nitrogen 10 mg/dL (7-18); Bicarbonate 23 mmol/L (21-32); Bilirubin Direct < 0.1 mg/dL (0-0.2); Bilirubin Total 0.4 mg/dL (0.2-1.0); Glucose Level 96 mg/dL (74-106); Lipase 87 U/L (73-393); Potassium 3.6 mmol/L (3.5-5.1); Protein, Total 6.6 g/dL (6.4-8.2); Sodium Level 140 mmol/L (136-145)
--- NOTE | 2020-11-16 16:21 | RAD REPORT ---
EXAM DESCRIPTION: CTAbdomen Pelvis W Contrast - 11/16/2020 4:11 pm CLINICAL HISTORY: Abdominal pain. ABD PAIN COMPARISON: Abdomen Pelvis W Contrast dated 05/28/2020; Abdomen Pelvis W Contrast dated 05/16/2020 TECHNIQUE: Biphasic CT imaging of the abdomen and pelvis was performed with 100 ml non-ionic IV cont rast. All CT scans are performed using dose optimization technique as appropriate and may include automated exposure control or mA/KV adjustment according to patient size. FINDINGS: The lung bases are mildly emphysematous. Small hiatal hernia. Mild diffuse fatty liver. Cholecystectomy clips. The spleen, pancreas, adrenal glands kidneys are wit hin normal limits. No bowel obstruction, free air, free fluid or abscess. Sigmoid diverticulosis coli is present without diverticulitis. Appendectomy. No evidence of significant lymphadenopathy. No suspicious bony findings. IMPRESSION: No acute intra-abdominal or pelvic finding. Sigmoid diverticulosis without diverticulitis.
[2020-11-16] MEDS ORDERED: MAGNES/ALUMIN/SIMET 30ML UCUP ONE (17:01)
[2020-11-16] MEDS ORDERED: LIDOCAINE VISCOUS 2% SOLN 15 ML UDC ONE (17:01)
[2020-11-16] MEDS ORDERED: FAMOTIDINE 20 MG/2 ML VIAL IV ONE (18:02)
[2020-11-16] MEDS ORDERED: HYDROCODONE/APAP 10/325 TAB ONE (18:02)
--- NOTE | 2020-11-16 18:44 | ER ---
Nurse's Notes [facility] Name: Milan Weir Age: 80 yrs Sex: Female : 1940 Arrival Date: 11/16/2020 Time: 15:10 Bed 2 Private MD: Diagnosis: Abdominal and pelvic pain Presentation: 11/16 15:10 Chief complaint: EMS states: pt from home, states having abdominal pain with N/V for 6 tw2 days, does have hx of chronic pancreatitis since jul 2020, she has noted increased bloating as well, said when this happened before her blood pressure increased so she said this time she wanted to come before her pressure when up, for us vs stable, we did give phenergan 12.5 mg iv and toradol 30 mg iv, she has a 22g RIGHT ac. Coronavirus screen: nausea, vomiting. Client presents with at least one sign or symptom that may indicate coronavirus-19. Standard/surgical mask placed on the client. Provider contacted for isolation considerations. Ebola Screen: Patient denies travel to an Ebola-affected area in the 21 days before illness onset. Initial Sepsis Screen: Does the patient meet any 2 criteria? No. Patient's initial sepsis screen is negative. Does the patient have a suspected source of infection? No. Patient's initial sepsis screen is negative. Risk Assessment: Do you want to hurt yourself or someone else? Patient reports no desire to harm self or others. Onset of symptoms was November 16, 2020. Care prior to arrival: Medication(s) given: Phenergan, 12.5 mg, Toradol 30 mg IV IV initiated. 22 GA, in the right antecubital area, Glucose check: 103. 15:10 Method Of Arrival: EMS: [facility] tw2 15:10 Acuity: JARRETT 3 tw2 Triage Assessment: 15:14 General: Appears in no apparent distress. uncomfortable, slender, Behavior is calm, tw2 cooperative, appropriate for age. Pain: Complains of pain in abdomen. EENT: No signs and/or symptoms were reported regarding the EENT system. Neuro: Level of Consciousness is awake, alert, obeys commands, Oriented to person, place, time, situation. Cardiovascular: Patient's skin is warm and dry. Respiratory: Airway is patent Respiratory effort is even, unlabored, Respiratory pattern is regular, symmetrical. GI: Abdomen is round distended, Bowel sounds present X 4 quads. Reports bloating, nausea, vomiting. : No signs and/or symptoms were reported regarding the genitourinary system. Derm: No signs and/or symptoms reported regarding the dermatologic system. Musculoskeletal: Range of motion: intact in all extremities. Historical: - Allergies: 15:14 Morphine; tw2 15:14 tramadol; tw2 15:14 Tylenol-Codeine; tw2 - PMHx: 15:14 Alzheimers; COPD; Hernia; Pancreatitis; tw2 - PSHx: 15:14 Cholecystectomy; Appendectomy; Tonsillectomy; tw2 - Immunization history:: Adult Immunizations. - Social history:: Smoking status: . Screenin:11 Abuse screen: Denies threats or abuse. Denies injuries from another. Nutritional sv screening: No deficits noted. Tuberculosis screening: No symptoms or risk factors identified. Fall Risk None identified. Assessment: 15:15 Reassessment: see triage assessment. tw2 16:19 Reassessment: Patient appears in no apparent distress at this time. No changes from tw2 previously documented assessment. Patient and/or family updated on plan of care and expected duration. Pain level reassessed. Patient is alert, oriented x 3, equal unlabored respirations, skin warm/dry/pink. 17:40 Reassessment: Patient appears in no apparent distress at this time. No changes from tw2 previously documented assessment. Patient and/or family updated on plan of care and expected duration. Pain level reassessed. Patient is alert, oriented x 3, equal unlabored respirations, skin warm/dry/pink. 19:05 Reassessment: Patient appears in no apparent distress at this time. Patient and/or tw2 family updated on plan of care and expected duration. Pain level reassessed. Patient is alert, oriented x 3, equal unlabored respirations, skin warm/dry/pink. Patient states feeling better. Patient states symptoms have improved. Vital Signs: 15:10 BP 151 / 73; Pulse 83; Resp 17; Temp 98.6(O); Pulse Ox 96% on R/A; Weight 56.25 kg (R); tw2 Pain 5/10; 16:19 BP 128 / 65; Pulse 67; Resp 17; Pulse Ox 98% on R/A; tw2 17:39 BP 129 / 80; Pulse 72; Resp 17; Pulse Ox 98% on R/A; tw2 18:30 BP 126 / 82; Pulse 71; Resp 17; Pulse Ox 95% on R/A; tw2 19:05 BP 142 / 82; Pulse 73; Resp 17; Pulse Ox 96% on R/A; tw2 ED Course: 15:10 Patient arrived in ED. tw2 15:11 Patient has correct armband on for positive identification. Bed in low position. Call sv light in reach. Side rails up X2. 15:12 Jas Villanueva MD is Attending Physician. kdr 15:13 Triage completed. tw2 15:14 Arm band placed on. tw2 15:16 Helen Lazo RN is Primary Nurse. tw2 15:29 Maintain EMS IV. Dressing intact. Good blood return noted. Site clean \T\ dry. Gauge \T\ tw 2 site: 22 g RIGHT wrist. 16:11 CT Abd/Pelvis - IV Contrast Only In Process Unspecified. EDMS 18:56 Awaiting transportation. tw2 19:05 No provider procedures requiring assistance completed. IV discontinued, intact, tw2 bleeding controlled, No redness/swelling at site. Pressure dressing applied. Administered Medications: 15:30 Drug: NS 0.9% 500 ml Route: IV; Rate: bolus; Site: right wrist; tw2 19:05 Follow up: Response: No adverse reaction; IV Status: Completed infusion; IV Intake: tw2 500ml 15:30 Drug: Zofran (Ondansetron) 4 mg Route: IVP; Site: right wrist; tw2 16:30 Follow up: Response: No adverse reaction tw2 15:32 Drug: Demerol - Meperidine 12.5 mg {Note: RASS 0.} Route: IVP; Site: right wrist; tw2 16:30 Follow up: Response: No adverse reaction; Pain is decreased; RASS: Alert and Calm (0) tw2 16:54 Drug: GI Cocktail without - (Maalox Suspension 30 ml, Lidocaine Liquid 2 % 15 jl7 ml) Route: PO; 19:05 Follow up: Response: No adverse reaction tw2 17:48 Drug: Castalia 10 mg-325 mg 1 tabs {Note: RASS o.} Route: PO; tw2 19:05 Follow up: Response: No adverse reaction; Pain is decreased; RASS: Alert and Calm (0) tw2 17:49 Drug: Pepcid 20 mg Route: IVP; Site: right wrist; tw2 19:00 Follow up: Response: No adverse reaction tw2 Intake: 19:05 IV: 500ml; Total: 500ml. tw2 Outcome: 18:44 Discharge ordered by . kdr 19:05 Discharged to home via wheelchair. tw2 19:05 Condition: stable 19:05 Discharge instructions given to patient, Instructed on discharge instructions, follow up and referral plans. no drinking with medication, no driving heavy equipment, medication usage, Demonstrated understanding of instructions, follow-up care, medications, Prescriptions given X 3. 19:06 Patient left the ED. tw2 Signatures: Dispatcher [employer] Lida Jj, RN Jas Hooper MD MD kdr Wise, Tara, RN RN tw2 Coleen Helms RN RN [id number]
--- NOTE | 2020-11-16 18:45 | EDPHYS ---
Physician Documentation [facility] Name: Milan Weir Age: 80 yrs Sex: Female : 1940 Arrival Date: 11/16/2020 Time: 15:10 Bed 2 Private MD: ED Physician Jas Villanueva HPI: 11/16 15:42 This 80 yrs old Female presents to ER via EMS with complaints of Abd Pain > kdr 49 y/o, Nausea/Vomiting. 15:42 The patient presents to the emergency department with nausea, that is mild, vomiting, kdr that is intermittent, abdominal pain, of the epigastric area, right upper quadrant and left upper quadrant, described as achy, crampy, intermittent, shooting, vague,\E\ waxing and waning. Onset: The symptoms/episode began/occurred suddenly, 2 hour(s) ago. Possible causes: unknown. The symptoms are aggravated by movement, pressure, The symptoms are alleviated by nothing. Associated signs and symptoms: Pertinent positives: abdominal pain, nausea, vomiting. Severity of symptoms: At their worst the symptoms were moderate severe just prior to arrival, in the emergency department the symptoms are unchanged. The patient has not experienced similar symptoms in the past, The patient has experienced a previous episode, last year. Historical: - Allergies: 15:14 Morphine; tw2 15:14 tramadol; tw2 15:14 Tylenol-Codeine; tw2 - PMHx: 15:14 Alzheimers; COPD; Hernia; Pancreatitis; tw2 - PSHx: 15:14 Cholecystectomy; Appendectomy; Tonsillectomy; tw2 - Immunization history:: Adult Immunizations. - Social history:: Smoking status: . ROS: 15:51 Constitutional: Negative for fever, chills, and weight loss, Eyes: Negative for injury, kdr pain, redness, and discharge, ENT: Negative for injury, pain, and discharge, Neck: Negative for injury, pain, and swelling, Cardiovascular: Negative for chest pain, palpitations, and edema, Respiratory: Negative for shortness of breath, cough, wheezing, and pleuritic chest pain, Back: Negative for injury and pain, : Negative for injury, bleeding, discharge, and swelling, MS/Extremity: Negative for injury and deformity, Skin: Negative for injury, rash, and discoloration, Neuro: Negative for headache, weakness, numbness, tingling, and seizure activity. Psych: Negative for depression, anxiety, suicide ideation, homicidal ideation, and hallucinations, Allergy/Immunology: Negative for hives, rash, and allergies, Endocrine: Negative for neck swelling, polydipsia, polyuria, polyphagia, and marked weight changes, Hematologic/Lymphatic: Negative for swollen nodes, abnormal bleeding, and unusual bruising. 15:51 Abdomen/GI: Positive for abdominal pain, nausea and vomiting, abdominal cramps, abdominal distension, Negative for diarrhea, black/tarry stool, rectal pain, rectal bleeding, bowel incontinence. Exam: 15:51 Constitutional: This is a well developed, well nourished patient who is awake, alert, kdr and in mild distress. Head/Face: Normocephalic, atraumatic. Eyes: Pupils equal round and reactive to light, extra-ocular motions intact. Lids and lashes normal. Conjunctiva and sclera are non-icteric and not injected. Cornea within normal limits. Periorbital areas with no swelling, redness, or edema. Neck: Trachea midline, no thyromegaly or masses palpated, and no cervical lymphadenopathy. Supple, full range of motion without nuchal rigidity, or vertebral point tenderness. No Meningismus. Chest/axilla: Normal chest wall appearance and motion. Nontender with no deformity. No lesions are appreciated. Cardiovascular: Regular rate and rhythm with a normal S1 and S2. No gallops, murmurs, or rubs. Normal PMI, no JVD. No pulse deficits. Respiratory: Lungs have equal breath sounds bilaterally, clear to auscultation and percussion. No rales, rhonchi or wheezes noted. No increased work of breathing, no retractions or nasal flaring. Back: No spinal tenderness. No costovertebral tenderness. Full range of motion. Skin: Warm, dry with normal turgor. Normal color with no rashes, no lesions, and no evidence of cellulitis. MS/ Extremity: Pulses equal, no cyanosis. Neurovascular intact. Full, normal range of motion. Neuro: Awake and alert, GCS 15, oriented to person, place, time, and situation. Cranial nerves II-XII grossly intact. Motor strength 5/5 in all extremities. Sensory grossly intact. Cerebellar exam normal. Normal gait. Psych: Awake, alert, with orientation to person, place and time. Behavior, mood, and affect are within normal limits. 15:51 Abdomen/GI: Inspection: distension, that is mild, that is moderate, scar(s), are noted in the epigastric area and umbilical area, Bowel sounds: active, diminished, in all quadrants, Palpation: mild abdominal tenderness, in the abdomen diffusely, mass, is not appreciated, rebound tenderness, is not appreciated, voluntary guarding, is elicited in all quadrants. Vital Signs: 15:10 BP 151 / 73; Pulse 83; Resp 17; Temp 98.6(O); Pulse Ox 96% on R/A; Weight 56.25 kg (R); tw2 Pain 5/10; 16:19 BP 128 / 65; Pulse 67; Resp 17; Pulse Ox 98% on R/A; tw2 17:39 BP 129 / 80; Pulse 72; Resp 17; Pulse Ox 98% on R/A; tw2 18:30 BP 126 / 82; Pulse 71; Resp 17; Pulse Ox 95% on R/A; tw2 19:05 BP 142 / 82; Pulse 73; Resp 17; Pulse Ox 96% on R/A; tw2 MDM: 15:51 Data reviewed: vital signs, nurses notes, lab test result(s), radiologic studies. kdr Counseling: I had a detailed discussion with the patient and/or guardian regarding: the historical points, exam findings, and any diagnostic results supporting the discharge/admit diagnosis, lab results, radiology results, the need for further work-up and treatment in the hospital. 15:55 Physician consultation:. kdr 18:44 Patient medically screened. kdr 11/16 15:14 Order name: Basic Metabolic Panel; Complete Time: 16:28 kdr 11/16 15:14 Order name: CBC with Diff; Complete Time: 15:42 kdr 11/16 15:14 Order name: Hepatic Function; Complete Time: 16:28 kdr 11/16 15:14 Order name: Lipase; Complete Time: 16:28 kdr 11/16 17:08 Order name: Troponin (emerg Dept Use Only) tw2 11/16 17:09 Order name: Troponin (Emerg Dept Use Only) EDHI 11/16 15:14 Order name: IV Saline Lock; Complete Time: 15:28 kdr 11/16 15:41 Order name: CT Abd/Pelvis - IV Contrast Only; Complete Time: 16:28 kdr 11/16 15:14 Order name: Labs collected and sent; Complete Time: 15:28 kdr Administered Medications: 15:30 Drug: NS 0.9% 500 ml Route: IV; Rate: bolus; Site: right wrist; tw2 19:05 Follow up: Response: No adverse reaction; IV Status: Completed infusion; IV Intake: tw2 500ml 15:30 Drug: Zofran (Ondansetron) 4 mg Route: IVP; Site: right wrist; tw2 16:30 Follow up: Response: No adverse reaction tw2 15:32 Drug: Demerol - Meperidine 12.5 mg {Note: RASS 0.} Route: IVP; Site: right wrist; tw2 16:30 Follow up: Response: No adverse reaction; Pain is decreased; RASS: Alert and Calm (0) tw2 16:54 Drug: GI Cocktail without - (Maalox Suspension 30 ml, Lidocaine Liquid 2 % 15 jl7 ml) Route: PO; 19:05 Follow up: Response: No adverse reaction tw2 17:48 Drug: Lena 10 mg-325 mg 1 tabs {Note: RASS o.} Route: PO; tw2 19:05 Follow up: Response: No adverse reaction; Pain is decreased; RASS: Alert and Calm (0) tw2 17:49 Drug: Pepcid 20 mg Route: IVP; Site: right wrist; tw2 19:00 Follow up: Response: No adverse reaction tw2 Disposition: 11/16/20 18:44 Discharged to Home. Impression: Abdominal and pelvic pain. - Condition is Stable. - Discharge Instructions: Nausea and Vomiting, Adult, [id number], Abdominal Pain, Adult, Pvah-[id number]. - Prescriptions for Bentyl 20 mg Oral Tablet - take 1 tablet by ORAL route every 6 hours As needed; 20 tablet. Phenergan 25 mg Rectal Suppository - insert 1 suppository by RECTAL route every 6 hours As needed; 20 suppository. promethazine 25 mg Oral Tablet - take 1 tablet by ORAL route every 6 hours As needed; 20 tablet. - Medication Reconciliation Form, Thank You Letter form. - Follow up: Private Physician; When: 2 - 3 days; Reason: If symptoms return, Further diagnostic work-up, Recheck today's complaints, Continuance of care, Re-evaluation by your physician. - Problem is new. - Symptoms have improved. Signatures: Dispatcher [employer] EDMS Jas Villanueva MD MD kdr Helen Lazo RN RN tw2 Coleen Helms RN RN jl7 Corrections: (The following items were deleted from the chart) 19:06 18:44 11/16/2020 18:44 Discharged to Home. Impression: Abdominal and pelvic pain. tw2 Condition is Stable. Forms are Medication Reconciliation Form, Thank You Letter, Antibiotic Education, Prescription Opioid Use. Follow up: Private Physician; When: 2 - 3 days; Reason: If symptoms return, Further diagnostic work-up, Recheck today's complaints, Continuance of care, Re-evaluation by your physician. Problem is new. Symptoms have improved. kdr
[2020-11-16 19:10] VITALS: TEMP 98.6
[2020-11-16 19:16] VITALS: BP 142/82; O2SAT 96
== END 2020-11-16 19:06 | disposition home or self-care (01) ==
LOC: ER 15:09
DX: R10.2 Pelvic and perineal pain (principal); G30.9 Alzheimer's disease, unspecified; F02.80 Dementia in other diseases classified elsewhere, unspecified severity, without behavioral disturbance, psychotic disturbance, mood disturbance, and anxiety; Z88.5 Allergy status to narcotic agent
CPT/HCPCS: 85025; 80048; 36415; 80076; 84484; 83690; 74177; Q9967; J2175; J7040; J2405; 96361; 96374; 96375; 99284

== ENCOUNTER 2021-01-24 17:41 | Observation (INO) | payer OTHER, BC ==
--- OUTSIDE RECORDS SUMMARY | 2021-01-24 17:43 | XMS REPORT | Continuity of Care Document ---
:1940 Author Organization [facility] t Address [address] [place] [address] Care Team Providers Name Role Phone Radiology [...] Type Clinicians Facility Department ID 2020-08-12 2020-08-12 [facility] Radiology [facility] [id number] 15:00:00 23:59:00 Encounter [place] [id number] [place] [id number] [place] [phone] Results Test Description Test Time Test Comments Results Result Comments Source BLOOD UREA NTIROGEN (BUN) 2016-12-27 09:33:00 Test Item Value Reference Range Interpretation Comme nts BUN (test code = BUN) 16.0 mg/dl 6.0-17.0 CREATININE, [id number] 09:33:00 Test Item Value Reference Range Interpretation Comments Creatinine (test 1.0 mg/dl 0.4-1.2 code = CREA) EGFR if >60 [place] (test code mL/min/1.73m\ = EGFRAA) S\2 EGFR if Non- 57 Estimate d Glomerular [place] (test code mL/min/1.73m\ Filtrat ion Rate (eGFR) [...]
[2021-01-24] MEDS ORDERED: FAMOTIDINE 20 MG/2 ML VIAL IV ONE (18:18)
[2021-01-24] MEDS ORDERED: NA CHLORIDE 0.9% 1,000 ML ONE (18:18)
[2021-01-24] MEDS ORDERED: ONDANSETRON 4 MG/2 ML VIAL ONE (18:18)
[2021-01-24] MEDS ORDERED: NA CHLORIDE 0.9% 500 ML ONE ×2 (18:18→19:35)
[2021-01-24 18:21] LABS: Absolute Lymphocytes (CBC) 1.3 K/uL (0.7-4.9); Basophils % 0.9 % (0-1.3); Hematocrit 41.9 % (36.0-45.0); Lymphocytes % 19.5 % (15.3-44.8); MPV 7.9 fL (7.6-11.3); RBC Red Blood Cell Count 4.59 M/uL (3.86-4.86)
[2021-01-24 18:25] LABS: Protime INR 0.98
[2021-01-24] MEDS ORDERED: MEPERIDINE HCL 25 MG/ML SYR ONE ×2 (18:34→21:39)
--- NOTE | 2021-01-24 18:35 | RAD REPORT ---
EXAM DESCRIPTION: RAD - Chest Single View - 01/24/2021 6:26 pm CLINICAL HISTORY: Cough;Abdominal distention Chest pain. COMPARISON: Chest Single View dated 05/28/2020; Chest Pa And Lat (2 Views) dated 10/11/2018; Chest Pa A nd Lat (2 Views) dated 08/12/2018 FINDINGS: Portable technique limits examination quality. The lungs are grossly clear. The heart is normal in size. No displaced fractures.Left-sided port cath eter its tip in the SVC. IMPRESSION: No acute intrathoracic process suspected.
[2021-01-24 18:45] LABS: ALT/SGPT 20 U/L (12-78); AST/SGOT 19 U/L (15-37); Albumin 3.7 g/dL (3.4-5.0); Alkaline Phosphatase 89 U/L (45-117); BUN Blood Urea Nitrogen 9 mg/dL (7-18); Bicarbonate 26 mmol/L (21-32); Bilirubin Direct 0.1 mg/dL (0-0.2); Bilirubin Total 0.4 mg/dL (0.2-1.0); Glucose Level 106 mg/dL (74-106); Lipase 88 U/L (73-393); Magnesium 2.2 mg/dL (1.8-2.4); NT PRO-BNP 53 pg/mL (<450); Protein, Total 7.7 g/dL (6.4-8.2); Sodium Level 141 mmol/L (136-145); Troponin (Emerg Dept Use Only) < 0.02 ng/mL (0.0-0.045)
--- NOTE | 2021-01-24 19:16 | ER ---
Nurse's Notes [facility] Name: Milan Weir Age: 80 yrs Sex: Female : 1940 Arrival Date: 01/24/2021 Time: 17:46 Bed 3 Private MD: Diagnosis: Vomiting;Hypokalemia;Abdominal tenderness;Volume depletion-mild;Weakness Presentation: 01/24 17:47 Chief complaint: Patient states: "the pt is reporting abdominal pain with a history of jd3 pancreatitis. pt with N/V/D. 12.5 of Phenergan was given and the pt reported that it helped.". Coronavirus screen: At this time, the client does not indicate any symptoms associated with coronavirus-19. Ebola Screen: Patient negative for fever greater than or equal to 101.5 degrees Fahrenheit, and additional compatible Ebola Virus Disease symptoms. Initial Sepsis Screen: Does the patient meet any 2 criteria? No. Patient's initial sepsis screen is negative. Does the patient have a suspected source of infection? No. Patient's initial sepsis screen is negative. Risk Assessment: Do you want to hurt yourself or someone else? Patient reports no desire to harm self or others. Onset of symptoms was January 24, 2021. 17:47 Method Of Arrival: EMS: [facility] jd3 17:47 Acuity: JARRETT 3 jd3 Historical: - Allergies: 17:50 Morphine; jd3 17:50 tramadol; jd3 17:50 Tylenol-Codeine; jd3 - PMHx: 17:50 Alzheimers; COPD; Hernia; Pancreatitis; jd3 - PSHx: 17:50 Cholecystectomy; Appendectomy; Tonsillectomy; jd3 - Immunization history:: Adult Immunizations up to date. - Social history:: Smoking status: Patient denies any tobacco usage or history of. - Family history:: not pertinent. Screenin:53 Abuse screen: Denies threats or abuse. Nutritional screening: No deficits noted. jd3 Tuberculosis screening: No symptoms or risk factors identified. Fall Risk Ambulatory Aid- None/Bed Rest/Nurse Assist (0 pts). Gait- Normal/Bed Rest/Wheelchair (0 pts) Mental Status- Oriented to own ability (0 pts). Total Owen Fall Scale indicates No Risk (0-24 pts). Assessment: 17:50 General: Appears in no apparent distress. uncomfortable, Behavior is calm, cooperative, jd3 appropriate for age. Pain: Complains of pain in abdomen Quality of pain is described as aching, tender. Neuro: Level of Consciousness is awake, alert, obeys commands, Oriented to person, place, time, situation. Cardiovascular: Capillary refill < 3 seconds Patient's skin is warm and dry. Respiratory: Airway is patent Respiratory effort is even, unlabored, Respiratory pattern is regular, symmetrical, Denies cough, shortness of breath. GI: Abdomen is round non-distended, Abd is soft and non tender X 4 quads. Reports diarrhea, nausea, vomiting. : No signs and/or symptoms were reported regarding the genitourinary system. EENT: No signs and/or symptoms were reported regarding the EENT system. Derm: Skin is intact, Skin is dry, Skin is normal, Skin temperature is warm. Musculoskeletal: Circulation, motion, and sensation intact. Range of motion: intact in all extremities. 18:54 Reassessment: Patient appears in no apparent distress at this time. No changes from jd3 previously documented assessment. Patient and/or family updated on plan of care and expected duration. Pain level reassessed. Patient is alert, oriented x 3, equal unlabored respirations, skin warm/dry/pink. 20:02 General: Appears in no apparent distress. comfortable, Behavior is calm, cooperative, rr5 appropriate for age. Neuro: Level of Consciousness is awake, alert, obeys commands, Oriented to person, place, time. Cardiovascular: Capillary refill < 3 seconds Patient's skin is warm and dry. Respiratory: Airway is patent Respiratory effort is even, unlabored, Respiratory pattern is regular, symmetrical. GI: Abdomen is round non-distended, Reports lower abdominal pain, upper abdominal pain, diarrhea, nausea, vomiting. : No signs and/or symptoms were reported regarding the genitourinary system. Derm: Skin is intact, is healthy with good turgor, Skin temperature is warm. Musculoskeletal: Capillary refill < 3 seconds. 20:25 Reassessment: david (son) [phone] hussain (daughter in law) [phone]. rr5 Vital Signs: 17:50 BP 160 / 83; Pulse 69; Resp 17 S; Temp 97.6(TE); Pulse Ox 97% on R/A; Weight 57.15 kg jd3 (R); Height 5 ft. 4 in. (162.56 cm) (R); Pain 6/10; 18:54 BP 156 / 92; Pulse 68; Resp 17 S; Pulse Ox 97% on R/A; jd3 19:50 BP 145 / 77; Pulse 69; Resp 18; Pulse Ox 96% on R/A; ea 20:03 BP 133 / 91; Pulse 65; Resp 16; Temp 97.8; Pulse Ox 98% ; rr5 20:48 BP 129 / 68; Pulse 76; Resp 18; Pulse Ox 96% ; rr5 17:50 Body Mass Index 21.63 (57.15 kg, 162.56 cm) jd3 ED Course: 17:46 Patient arrived in ED. jd3 17:47 Sean Seymour MD is Attending Physician. nargis 17:49 Triage completed. jd3 17:50 Arm band placed on. jd3 17:53 Patient has correct armband on for positive identification. Placed in gown. Bed in low jd3 position. Call light in reach. Side rails up X2. Pulse ox on. NIBP on. 17:55 Hiram Cross, SANDY is Primary Nurse. jd3 18:25 Maintain EMS IV. Dressing intact. IV is swollen, with fluids not infusing freely, jd3 without good blood return, IV discontinued. 18:26 XRAY Chest (1 view) In Process Unspecified. EDMS 18:33 Inserted saline lock: 20 gauge in right antecubital area, using aseptic technique. jd3 Blood collected. 19:07 CT Abd/Pelvis - IV Contrast Only In Process Unspecified. EDMS 19:11 Celestine Barahona is Hospitalizing Provider. nargis 19:18 Nathan Fairchild DO is Hospitalizing Provider. la1 19:41 Primary Nurse role handed off by Hiram Cross RN mw2 19:47 Dagoberto Garnett, SANDY is Primary Nurse. rr5 20:27 No provider procedures requiring assistance completed. Patient admitted, IV remains in rr5 place. intact, No redness/swelling at site. Administered Medications: Discontinued: NS 0.9% 1000 ml IV at 125 ml/hr continuous 18:31 Drug: Demerol (meperidine) 25 mg Route: IVP; Site: right antecubital; jd3 19:30 Follow up: Response: No adverse reaction rr5 18:32 Drug: NS 0.9% 500 ml Route: IV; Rate: bolus; Site: right antecubital; jd3 19:25 Follow up: Response: No adverse reaction; IV Status: Completed infusion; IV Intake: rr5 500ml 18:32 Drug: NS 0.9% 1000 ml Route: IV; Rate: 125 ml/hr; Site: right antecubital; jd3 19:25 Follow up: Response: No adverse reaction; IV Status: Order to discontinue infusion; IV rr5 Intake: 125ml 18:32 Drug: Pepcid (famotidine) 20 mg Route: IVP; Site: right antecubital; jd3 19:35 Follow up: Response: No adverse reaction rr5 18:32 Drug: Zofran (Ondansetron) 4 mg Route: IVP; Site: right antecubital; jd3 19:30 Follow up: Response: No adverse reaction rr5 19:26 Drug: NS 0.9% 500 ml Route: IV; Rate: bolus; Site: right antecubital; rr5 20:28 Follow up: Response: No adverse reaction; IV Status: Completed infusion; IV Intake: rr5 500ml 19:27 Drug: Potassium Chloride 20 mEq Route: IV; Rate: per protocol; Site: right antecubital; rr5 20:29 Follow up: Response: No adverse reaction; IV Status: Infusion continued upon admission; rr5 IV Intake: 50ml 19:30 Not Given (Duplicate Order): D5-NS with KCL 20 mEq/L 1000 ml IV at 125 ml/hr continuous nargis 20:28 Drug: D5-1/2 NS with KCl 20 mEq/L 1000 ml Route: IV; Rate: 125 ml/hr; Site: right rr5 antecubital; 20:49 Follow up: Response: No adverse reaction; IV Status: Infusion continued upon admission rr5 Intake: 19:25 IV: 125ml; Total: 125ml. rr5 19:25 IV: 500ml; Total: 625ml. rr5 20:28 IV: 500ml; Total: 1125ml. rr5 20:29 IV: 50ml; Total: 1175ml. rr5 Outcome: 19:15 Decision to Hospitalize by Provider. nargis 20:48 Admitted to [facility] accompanied by tech, room 413, with chart, Report called to maribell rr5 20:48 Condition: stable 20:48 Instructed on the need for admit. 20:51 Patient left the ED. rr5 Signatures: Dispatcher [employer] EDSean Everett MD MD cha Attema, Lee, CRIMINAL RESEARCHER-C CRIMINAL RESEARCHER-Cla1 Cailin Allison, RN Hiram Fountain ea, RN RN jd3 Anastacia Puckett 2 Dagoberto Garnett RN RN rr5 Corrections: (The following items were deleted from the chart) 17:53 17:50 BP 160 / 83; Pulse 69bpm; Resp 17bpm; Spontaneous; Pulse Ox 97% RA; jd3 jd3 18:34 17:47 Chief complaint: Patient states: "the pt is reporting abdominal pain with a jd3 history of pancreatitis. pt with N/V/D." jd3 20:26 20:02 Neuro: Level of Consciousness is awake, alert, obeys commands, Oriented to rr5 person, place, time, rr5
--- NOTE | 2021-01-24 19:16 | EDPHYS ---
Physician Documentation [facility] Name: Milan Weir Age: 80 yrs Sex: Female : 1940 Arrival Date: 01/24/2021 Time: 17:46 Bed 3 Private MD: ED Physician Sean Seymour HPI: 01/24 18:15 This 80 yrs old Female presents to ER via EMS with complaints of abdominal nargis pain and vomiting. 18:15 The patient presents with abdominal pain in the epigastric area, in the upper abdomen. nargis Onset: The symptoms/episode began/occurred today, yesterday. The patient presents to the emergency department with nausea, vomiting, abdominal pain, of the epigastric area, right upper quadrant and left upper quadrant. Onset: The symptoms/episode began/occurred 2 day(s) ago. Possible causes: unknown. The symptoms are aggravated by nothing. The symptoms are alleviated by nothing. Associated signs and symptoms: Pertinent positives: abdominal pain, nausea, vomiting. The symptoms do not radiate. Associated signs and symptoms: Pertinent positives: nausea and vomiting. Modifying factors: The symptoms are alleviated by nothing, the symptoms are aggravated by nothing. Historical: - Allergies: 17:50 Morphine; jd3 17:50 tramadol; jd3 17:50 Tylenol-Codeine; jd3 - PMHx: 17:50 Alzheimers; COPD; Hernia; Pancreatitis; jd3 - PSHx: 17:50 Cholecystectomy; Appendectomy; Tonsillectomy; jd3 - Immunization history:: Adult Immunizations up to date. - Social history:: Smoking status: Patient denies any tobacco usage or history of. - Family history:: not pertinent. ROS: 18:15 Constitutional: Negative for fever, chills, and weight loss, Eyes: Negative for injury, nargis pain, redness, and discharge, ENT: Negative for injury, pain, and discharge, Neck: Negative for injury, pain, and swelling, Cardiovascular: Negative for chest pain, palpitations, and edema, Respiratory: Negative for shortness of breath, cough, wheezing, and pleuritic chest pain, Back: Negative for injury and pain, : Negative for injury, bleeding, discharge, and swelling, MS/Extremity: Negative for injury and deformity, Skin: Negative for injury, rash, and discoloration, Neuro: Negative for headache, weakness, numbness, tingling, and seizure, Psych: Negative for depression, anxiety, suicide ideation, homicidal ideation, and hallucinations, Allergy/Immunology: Negative for hives, rash, and allergies, Endocrine: Negative for neck swelling, polydipsia, polyuria, polyphagia, and marked weight changes, Hematologic/Lymphatic: Negative for swollen nodes, abnormal bleeding, and unusual bruising. 18:15 Abdomen/GI: Positive for abdominal pain, nausea and vomiting, of the epigastric area, right upper quadrant and left upper quadrant. Exam: 18:15 Constitutional: This is a well developed, well nourished patient who is awake, alert, nragis and in no acute distress. Head/Face: Normocephalic, atraumatic. Eyes: Pupils equal round and reactive to light, extra-ocular motions intact. Lids and lashes normal. Conjunctiva and sclera are non-icteric and not injected. Cornea within normal limits. Periorbital areas with no swelling, redness, or edema. ENT: Nares patent. No nasal discharge, no septal abnormalities noted. Tympanic membranes are normal and external auditory canals are clear. Oropharynx with no redness, swelling, or masses, exudates, or evidence of obstruction, uvula midline. Mucous membranes moist. Neck: Trachea midline, no thyromegaly or masses palpated, and no cervical lymphadenopathy. Supple, full range of motion without nuchal rigidity, or vertebral point tenderness. No Meningismus. Chest/axilla: Normal chest wall appearance and motion. Nontender with no deformity. No lesions are appreciated. Cardiovascular: Regular rate and rhythm with a normal S1 and S2. No gallops, murmurs, or rubs. Normal PMI, no JVD. No pulse deficits. Respiratory: Lungs have equal breath sounds bilaterally, clear to auscultation and percussion. No rales, rhonchi or wheezes noted. No increased work of breathing, no retractions or nasal flaring. Back: No spinal tenderness. No costovertebral tenderness. Full range of motion. Skin: Warm, dry with normal turgor. Normal color with no rashes, no lesions, and no evidence of cellulitis. MS/ Extremity: Pulses equal, no cyanosis. Neurovascular intact. Full, normal range of motion. Neuro: Awake and alert, GCS 15, oriented to person, place, time, and situation. Cranial nerves II-XII grossly intact. Motor strength 5/5 in all extremities. Sensory grossly intact. Cerebellar exam normal. Normal gait. Psych: Awake, alert, with orientation to person, place and time. Behavior, mood, and affect are within normal limits. 18:15 Abdomen/GI: Inspection: distension, Bowel sounds: normal, Palpation: mild abdominal tenderness, in the epigastric area, right upper quadrant and left upper quadrant, Liver: no appreciated palpable abnormalities, Hernia: not appreciated. 18:15 Musculoskeletal/extremity: DVT Exam: No signs of deep vein thrombosis. no pain, no swelling, no tenderness, negative Homans' sign noted on exam, no appreciated bluish discoloration, no erythema, no increased warmth. 18:21 ECG was reviewed by the Attending Physician. [facility] Vital Signs: 17:50 BP 160 / 83; Pulse 69; Resp 17 S; Temp 97.6(TE); Pulse Ox 97% on R/A; Weight 57.15 kg jd3 (R); Height 5 ft. 4 in. (162.56 cm) (R); Pain 6/10; 18:54 BP 156 / 92; Pulse 68; Resp 17 S; Pulse Ox 97% on R/A; jd3 19:50 BP 145 / 77; Pulse 69; Resp 18; Pulse Ox 96% on R/A; ea 20:03 BP 133 / 91; Pulse 65; Resp 16; Temp 97.8; Pulse Ox 98% ; rr5 20:48 BP 129 / 68; Pulse 76; Resp 18; Pulse Ox 96% ; rr5 17:50 Body Mass Index 21.63 (57.15 kg, 162.56 cm) jd3 MDM: 17:47 Patient medically screened. [facility] 18:18 Differential diagnosis: Nonspecific abd pain, gastritis, cholecystitis, pancreatitis, nargis diverticulitis, viral gastroenteritis, gastroenteritis, diverticulitis, gastritis, gastroesophageal reflux disease, non-specific abd pain, pancreatitis, Peptic Ulcer Disease, urinary tract infection. Data reviewed: vital signs, nurses notes, lab test result(s), EKG, radiologic studies, CT scan, plain films. Data interpreted: Pulse oximetry: is not applicable for this patient encounter. on. Test interpretation: by ED physician or midlevel provider: ECG, plain radiologic studies. Counseling: I had a detailed discussion with the patient and/or guardian regarding: the historical points, exam findings, and any diagnostic results supporting the discharge/admit diagnosis, lab results, radiology results, the need for further work-up and treatment in the hospital. 01/24 17:52 Order name: Basic Metabolic Panel [facility] 01/24 17:52 Order name: CBC with Diff [facility] 01/24 17:52 Order name: LFT's [facility] 01/24 17:52 Order name: Magnesium; Complete Time: 19:09 [facility] 01/24 17:52 Order name: NT PRO-BNP; Complete Time: 19: [facility] 01/24 17:52 Order name: PT-INR; Complete Time: 19: [facility] 01/24 17:52 Order name: Troponin (emerg Dept Use Only); Complete Time: 19: [facility] 01/24 17:52 Order name: Lipase; Complete Time: 19: [facility] 01/24 17:52 Order name: Urine Culture [facility] 01/24 17:53 Order name: Basic Metabolic Panel; Complete Time: 19:09 [facility] 01/24 17:53 Order name: CBC with Automated Diff; Complete Time: 19:09 [facility] 01/24 17:53 Order name: Liver (Hepatic) Function; Complete Time: 18:54 [facility] 01/24 19:24 Order name: SARS-COV-2 RT PCR; Complete Time: 19:29 [facility] 01/24 17:52 Order name: XRAY Chest (1 view); Complete Time: 19:09 [facility] 01/24 17:52 Order name: EKG; Complete Time: 17:54 [facility] 01/24 17:52 Order name: Cardiac monitoring; Complete Time: 17:56 [facility] 01/24 17:52 Order name: EKG - Nurse/Tech; Complete Time: 18:05 [facility] 01/24 17:52 Order name: IV Saline Lock; Complete Time: 18:06 [facility] 01/24 17:52 Order name: Labs collected and sent; Complete Time: 18:06 [facility] 01/24 17:52 Order name: CT Abd/Pelvis - IV Contrast Only; Complete Time: 19:23 [facility] 01/24 17:52 Order name: O2 Per Protocol; Complete Time: 17:56 [facility] 01/24 17:52 Order name: O2 Sat Monitoring; Complete Time: 17:56 [facility] 01/24 17:52 Order name: Urine Dipstick-Ancillary (obtain specimen); Complete Time: 20:51 nargis EC:21 Rate is 67 beats/min. Rhythm is regular. QRS Ensign is Normal. LA interval is normal. QRS nargis interval is normal. QT interval is normal. No Q waves. T waves are Normal. No ST changes noted. Clinical impression: Normal ECG and No evidence of ischemia. Interpreted by me. Reviewed by me. Administered Medications: Discontinued: NS 0.9% 1000 ml IV at 125 ml/hr continuous 18:31 Drug: Demerol (meperidine) 25 mg Route: IVP; Site: right antecubital; jd3 19:30 Follow up: Response: No adverse reaction rr5 18:32 Drug: NS 0.9% 500 ml Route: IV; Rate: bolus; Site: right antecubital; jd3 19:25 Follow up: Response: No adverse reaction; IV Status: Completed infusion; IV Intake: rr5 500ml 18:32 Drug: NS 0.9% 1000 ml Route: IV; Rate: 125 ml/hr; Site: right antecubital; jd3 19:25 Follow up: Response: No adverse reaction; IV Status: Order to discontinue infusion; IV rr5 Intake: 125ml 18:32 Drug: Pepcid (famotidine) 20 mg Route: IVP; Site: right antecubital; jd3 19:35 Follow up: Response: No adverse reaction rr5 18:32 Drug: Zofran (Ondansetron) 4 mg Route: IVP; Site: right antecubital; jd3 19:30 Follow up: Response: No adverse reaction rr5 19:26 Drug: NS 0.9% 500 ml Route: IV; Rate: bolus; Site: right antecubital; rr5 20:28 Follow up: Response: No adverse reaction; IV Status: Completed infusion; IV Intake: rr5 500ml 19:27 Drug: Potassium Chloride 20 mEq Route: IV; Rate: per protocol; Site: right antecubital; rr5 20:29 Follow up: Response: No adverse reaction; IV Status: Infusion continued upon admission; rr5 IV Intake: 50ml 19:30 Not Given (Duplicate Order): D5-NS with KCL 20 mEq/L 1000 ml IV at 125 ml/hr continuous nargis 20:28 Drug: D5-1/2 NS with KCl 20 mEq/L 1000 ml Route: IV; Rate: 125 ml/hr; Site: right rr5 antecubital; 20:49 Follow up: Response: No adverse reaction; IV Status: Infusion continued upon admission rr5 Disposition: 01/24/21 19:15 Hospitalization ordered by Nathan Fairchild for Observation. Preliminary diagnosis are Vomiting, Hypokalemia, Abdominal tenderness, Volume depletion - mild, Weakness. - Bed requested for Telemetry/MedSurg (observation). - Status is Observation. rr5 - Condition is Stable. - Problem is new. - Symptoms have improved. Signatures: Dispatcher [employer] EDPA Rosette Raymond, RN RN Sean Ramírez MD MD cha Attema, Dillan, LCAC RADAR OPERATOR/NAVIGATOR-C LCAC RADAR OPERATOR/NAVIGATOR-Cla1 Hiram Cross, RN RN jDagoberto Chadnler RN RN rr5 Corrections: (The following items were deleted from the chart) 18:42 17:53 CORONAVIRUS+MR.LAB.BRZ ordered. [facility] EDPA 19:19 19:15 Hospitalization Ordered by Celestine Barahona for Observation. Preliminary diagnosis la1 is Vomiting; Hypokalemia; Abdominal tenderness; Volume depletion - mild; Weakness. Bed requested for Telemetry/MedSurg (observation). Status is Observation. Condition is Stable. Problem is new. Symptoms have improved. nargis 20:24 19:19 01/24/2021 19:15 Hospitalization Ordered by Nathan Fairchild DO for Observation. dw Preliminary diagnosis is Vomiting; Hypokalemia; Abdominal tenderness; Volume depletion - mild; Weakness. Bed requested for Telemetry/MedSurg (observation). Status is Observation. Condition is Stable. Problem is new. Symptoms have improved. la1 20:51 20:24 01/24/2021 19:15 Hospitalization Ordered by Nathan Fairchild DO for Observation. rr5 Preliminary diagnosis is Vomiting; Hypokalemia; Abdominal tenderness; Volume depletion - mild; Weakness. Bed requested for Telemetry/MedSurg (observation). Status is Observation. Condition is Stable. Problem is new. Symptoms have improved. dw
--- NOTE | 2021-01-24 19:21 | RAD REPORT ---
EXAM DESCRIPTION: CTAbdomen Pelvis W Contrast - 01/24/2021 7:07 pm CLINICAL HISTORY: Abdominal pain. ABD PAIN COMPARISON: Abdomen Pelvis W Contrast dated 11/16/2020; Abdomen Pelvis W Contrast dated 05/28/2020 ; Abdomen Pelvis W Contrast dated 05/16/2020; Abdomen Pelvis W Contrast dated 05/13/2020 TECHNIQUE: Biphasic CT imaging of the abdomen and pelvis was performed with 100 ml non-ionic IV cont rast. All CT scans are performed using dose optimization technique as appropriate and may include automated exposure control or mA/KV adjustment according to patient size. FINDINGS: The lung bases are clear.Cholecystectomy. The liver, spleen, pancreas, adrenal glands and kidneys are within normal limits. No bowel obstruction, free air, free fluid or abscess. Mild sigmoid diverticulosis coli without diver ticulitis. Appendectomy. No evidence of significant lymphadenopathy. No suspicious bony findings. IMPRESSION: No acute intra-abdominal or pelvic finding.
[2021-01-24] MEDS ORDERED: D5.45NS W/KCL 20MEQ 1,000 ML IV ONE (19:35)
[2021-01-24] MEDS ORDERED: KCL 20 MEQ/100 mL IVPB 20 MEQ/100 ML BAG IV ONE (19:35)
--- NOTE | 2021-01-24 20:11 | P.HP ---
Certification for Inpatient Patient admitted to: Observation With expected LOS: <2 Midnights Patient will require the following post-hospital care: None Practitioner: I am a practitioner with admitting privileges, knowledge of patient current condition, hospital course, and medical plan of care. Services: Services provided to patient in accordance with Admission requirements found in Title 42 Section 412.3 of the Code of Federal Regulations Patient History Date of Service: 01/24/21 Primary Care Provider: Unknown Reason for admission: Abdominal tenderness, vomiting History of Present Illness: 80-year-old female with history of chronic pancreatitis, Alzheimer's for abdominal pain and vomiting. Patient reports she has had generalized abdominal pain and vomiting that began today, patient states that it is her pancreatitis. Patient's workup in the emergency department, labs significant for hypokalemia, not currently tolerating PO, CT without acute findings. Patient continues to have abdominal tenderness, vomiting and complains of significant pain. ED provider wishes to admit under observation for further evaluation and management. Allergies codeine Allergy (Verified 10/08/18 00:19) Nausea/Vomiting acetaminophen [From Tylenol] Adverse Reaction (Verified 10/08/18 00:19) Nausea/Vomiting tramadol Adverse Reaction (Verified 10/08/18 00:19) Nausea/Vomiting Home Medications: Memantine HCl [Namenda] 1 tab PO DAILY 10/08/18 Venlafaxine HCl *Xr* [Effexor XR] 1 cap PO BEDTIME 10/08/18 Rabeprazole Sodium [Aciphex] 20 mg PO BID 05/28/20 Hydrocodone 10/APAP 325 [[place] 10/325*] 1 tab PO Q12H PRN #40 tab 05/30/20 Lipase/Protease/Amylase [Arabella Cheney 16,800 Unit Cap] 1 each PO AC #90 capsule. 05/30/20 Promethazine Tab [Phenergan*] 25 mg PO Q12H PRN #30 tab 05/30/20 - Past Medical/Surgical History Diabetic: No -: COPD -: Alzheimer's disease -: pancreatitis -: liver cirrhosis -: kidney disease -: bladder -: tonsilectomy -: appendectomy -: double mastectomy with reconstruction 1973 -: silicon replacement in 1993 -: gall bladder removed 2002 -: abdominal surgery Psychosocial/ Personal History: long term resident - Family History Mother Notes: ALZEIMER'S. ARTHRITIS Brother -: GI disease Notes: internal bleeding - Social History Alcohol use: No CD- Drugs: No Caffeine use: Yes Review of Systems 10-point ROS is otherwise unremarkable Gastrointestinal: Nausea, Vomiting, Abdominal Pain Physical Examination - Physical Exam General: Alert, In no apparent distress, Oriented x2 HEENT: Atraumatic, Normocephalic, Mucous membr. moist/pink Neck: Supple Respiratory: Clear to auscultation bilaterally, Normal air movement Cardiovascular: No edema, Normal S1 S2 Capillary refill: <2 Seconds Gastrointestinal: Normal bowel sounds, No rebound, No guarding, Tenderness (Mild abdominal tenderness in her right and left lower quadrant, epigastric) Musculoskeletal: No contractures, No erythema, No tenderness Integumentary: No significant lesion, No tenderness/swelling, No erythema Neurological: Normal speech, Normal strength at 5/5 x4 extr, Normal tone - Studies Laboratory Data (last 24 hrs) 01/24/21 18:11: PT 11.3, INR 0.98 01/24/21 18:11: WBC 6.50, Hgb 13.9, Hct 41.9, Plt Count 289 01/24/21 18:11: Sodium 141, Potassium 3.0 L, BUN 9, Creatinine 0.90, Glucose 106, Magnesium 2.2, Total Bilirubin 0.4, AST 19, ALT 20, Alkaline Phosphatase 89, Lipase 88 Assessment and Plan - Plan Assessment Abdominal tenderness, vomiting, hypokalemia with history of chronic pancreatitis COPD Alzheimer's Plan Abdominal tenderness, vomiting, hypokalemia with history of chronic pancreatitis: CT abdomen pelvis negative for any acute findings, labs unremarkable aside from hypokalemia. Patient still complaining of abdominal pain and vomiting after evaluation and treatment in the emergency department. Patient with mild abdominal tenderness in left lower, right lower, epigastric areas, patient reports this feels similar to her chronic pancreatitis pain. Lipase normal, will continue with NPO, advance as tolerated, IV fluids, p.r.n. anti emetics and pain medications. DVT prophylaxis Lovenox 40 mg subcutaneous once daily. COPD: Stable this time Alzheimer's: Appears to be stable, will need to go over patient's living arrangements. Patient is confused but reports that she lives alone, previously chart indicated she was skilled nursing resident. Discharge Plan: Home Plan to discharge in: 24 Hours - Advance Directives Does patient have a Living Will: No Does patient have a Durable POA for Healthcare: Yes - Code Status/Comfort Care Code Status Assessed: Yes (DNR) Critical Care: No Time Spent Managing Pts Care (In Minutes): 55
[2021-01-24 20:56] LABS: Urine Blood 1+ (Negative); Urine Glucose Negative (Negative); Urine Protein Negative (Negative); Urine Specific Gravity 1.015 (1.005-1.030)
[2021-01-24] MEDS: D5.45NS W/KCL 20MEQ 1,000 ML IV SCH (21:14)
[2021-01-24] MEDS ORDERED: ONDANSETRON 4 MG/2 ML VIAL IV PRN (21:14)
[2021-01-24] MEDS ORDERED: MEPERIDINE HCL 25 MG/ML SYR IV ONE (21:22)
[2021-01-24 22:09] VITALS: BMI 25.9
[2021-01-24 22:56] LABS: Urine Appearance CLEAR (Clear); Urine Bilirubin NEGATIVE (Negative); Urine Blood TRACE (Negative); Urine Color YELLOW (Yellow); Urine Glucose NEGATIVE (Negative); Urine Protein NEGATIVE (Negative); Urine Specific Gravity >=1.030 (1.005-1.030); Urine Urobilinogen 0.2 mg/dL (0.2-1.0); Urine pH 7.5 (5.0-7.0)
[2021-01-24 23:01] LABS: Urine Microscopic Reflex ORDER UMIC
[2021-01-24 23:27] LABS: Urine Bacteria <20 /HPF (<20); Urine RBC <5 /HPF (NONE SEEN); Urine Urothelial Cells <5 /HPF (NONE SEEN)
[2021-01-24] MEDS ORDERED: MELATONIN 5 MG TABLET PO PRN (23:45)
[2021-01-25] MEDS: PROMETHAZINE INJ 25 MG/ML AMP IV PRN ×2 (00:20→12:09)
[2021-01-25 03:45] VITALS: O2SAT 99
[2021-01-25 04:01] LABS: Absolute Lymphocytes (CBC) 1.7 K/uL (0.7-4.9); Basophils % 0.5 % (0-1.3); Hematocrit 35.6 % (36.0-45.0); Lymphocytes % 30.1 % (15.3-44.8); MPV 8.2 fL (7.6-11.3); RBC Red Blood Cell Count 3.96 M/uL (3.86-4.86)
[2021-01-25 05:10] LABS: Bilirubin Total 0.5 mg/dL (0.2-1.0); Magnesium 2.2 mg/dL (1.8-2.4); Potassium 3.7 mmol/L (3.5-5.1); Protein, Total 6.1 g/dL (6.4-8.2); Thyroid Stimulating Hormone 1.8 uIU/mL (0.360-3.740)
[2021-01-25] MEDS ORDERED: MEPERIDINE HCL 25 MG/ML SYR IV ONE (05:10)
[2021-01-25] MEDS ORDERED: PROMETHAZINE 25 MG TABLET PO PRN (07:55)
[2021-01-25] MEDS ORDERED: FOLIC ACID 1 MG TABLET PO SCH (09:00)
[2021-01-25] MEDS ORDERED: ENOXAPARIN 40 MG/0.4 ML SQ SCH (09:00)
[2021-01-25] MEDS ORDERED: DOCUSATE NA 100 MG CAP PO SCH (09:00)
[2021-01-25] MEDS ORDERED: THIAMINE HCL 100 MG TABLET PO SCH (09:00)
[2021-01-25] MEDS ORDERED: FAMOTIDINE 20 MG/2 ML VIAL IV SCH (09:00)
--- NOTE | 2021-01-25 09:29 | P.DS ---
Admission Date: 01/24/21 Discharge Date: 01/25/21 Primary Care Provider: Unknown; Pain management-Dr. David Pino Disposition: ROUTINE DISCHARGE Discharge Condition: GOOD Reason for Admission: Abdominal tenderness, vomiting Consultations: none Procedures: COVID: Negative CT scan: COMPARISON: Abdomen Pelvis W Contrast dated 11/16/2020; Abdomen Pelvis W Contrast dated 05/28/2020; Abdomen Pelvis W Contrast dated 05/16/2020; Abdomen Pelvis W Contrast dated 05/13/2020 TECHNIQUE: Biphasic CT imaging of the abdomen and pelvis was performed with 100 ml non-ionic IV contrast. All CT scans are performed using dose optimization technique as appropriate and may include automated exposure control or mA/KV adjustment according to patient size. FINDINGS: The lung bases are clear.Cholecystectomy. The liver, spleen, pancreas, adrenal glands and kidneys are within normal limits. No bowel obstruction, free air, free fluid or abscess. Mild sigmoid diverticulosis coli without diverticulitis. Appendectomy. No evidence of significant lymphadenopathy. No suspicious bony findings. IMPRESSION: No acute intra-abdominal or pelvic finding. CXR: COMPARISON: Chest Single View dated 05/28/2020; Chest Pa And Lat (2 Views) dated 10/11/2018; Chest Pa And Lat (2 Views) dated 08/12/2018 FINDINGS: Portable technique limits examination quality. The lungs are grossly clear. The heart is normal in size. No displaced fractures.Left-sided port catheter its tip in the SVC. IMPRESSION: No acute intrathoracic process suspected. Medical Problem List: Nausea, vomiting and abdominal pain likely GERD Mild renal insufficiency secondary to dehydration Depression Dementia Chronic pain Brief History of Present Illness: 80-year-old female with history of chronic pancreatitis, dementia, chronic pain and depression. Patient presented with nausea, vomiting abdominal pain. CT scan unremarkable. Labs showed mild renal insufficiency. The patient was admitted for observation. Hospital Course: Patient presented with nausea, vomiting and abdominal pain. Mild renal sufficiency noted with dehydration. Patient was admitted for observation. Patient improved. Patient able to tolerate her diet. Spoke with [id number] in detail concerning her condition. CT scan unremarkable. Chest x-ray unremarkable. Patient has seen GI in the past with some suspicion of GERD. Patient does take Phenergan as needed for nausea. This is a chronic medication given by her pain specialist. At discharge will recommend to start Pepcid 20 mg 1 pill twice daily as GERD is suspected. We will also refill her Phenergan 25 mg twice daily as needed for nausea. Recommend follow-up with GIDr. Sweat if her condition persists. Education on GERD diet provided. Recommend to recheck labBMP in 1 week to monitor her progress. Recommend to establish care with a local PCP to follow-up his hospitalization and continue her care. Patient with depression and dementia. Dementia appears mild. Patient may restart her Effexor medication for depression. Patient previously on medication for memory loss in the past. Recommend a formal evaluation with neurology to evaluate her possible underlying dementia. This was expressed in detail with the [id number]. Contact information to neurology will be provided. If her Dementia is determined to be worse, then activities will need to be limited. She may have to her have driving restricted. Patient with chronic pain. Patient sees chronic pain management physician Dr. David Terrazas. Patient has received pain injections in the past. Continue with follow-up with pain management to further address her condition. Vital Signs/Physical Exam: Temp Pulse Resp BP Pulse Ox 97.1 F 60 20 111/64 98 01/25/21 08:00 01/25/21 08:00 01/25/21 08:00 01/25/21 08:00 01/25/21 08:00 General: Alert, In no apparent distress, Cooperative HEENT: Atraumatic Neck: Supple Respiratory: Clear to auscultation bilaterally, Normal air movement Cardiovascular: Normal pulses, Regular rate/rhythm Gastrointestinal: Normal bowel sounds, Soft and benign, Non-distended, No tenderness, No masses, No rebound, No guarding Musculoskeletal: No erythema, No tenderness, No warmth Integumentary: No tenderness/swelling Neurological: Normal speech, Normal strength at 5/5 x4 extr, Normal tone, Normal affect Laboratory Data at Discharge: WBC 5.80 K/uL (4.3-10.9) 01/25/21 03:15 Hgb 12.3 g/dL (12.0-15.0) 01/25/21 03:15 Hct 35.6 % (36.0-45.0) L D 01/25/21 03:15 Plt Count 238 K/uL (152-406) 01/25/21 03:15 PT 11.3 SECONDS (9.5-12.5) 01/24/21 18:11 INR 0.98 01/24/21 18:11 Sodium 143 mmol/L (136-145) 01/25/21 03:15 Potassium 3.7 mmol/L (3.5-5.1) 01/25/21 03:15 BUN 6 mg/dL (7-18) L 01/25/21 03:15 Creatinine 0.81 mg/dL (0.55-1.3) 01/25/21 03:15 Glucose 113 mg/dL (74-106) H 01/25/21 03:15 Magnesium 2.2 mg/dL (1.8-2.4) 01/25/21 03:15 Total Bilirubin 0.5 mg/dL (0.2-1.0) 01/25/21 03:15 AST 14 U/L (15-37) L 01/25/21 03:15 ALT 16 U/L (12-78) 01/25/21 03:15 Alkaline Phosphatase 69 U/L (45-117) 01/25/21 03:15 Lipase 48 U/L (73-393) L 01/25/21 03:15 Home Medications: Venlafaxine HCl *Xr* [Effexor XR] 1 cap PO BEDTIME 10/08/18 Famotidine [Pepcid] 20 mg PO BID #60 tab 01/25/21 Promethazine Tab [Phenergan*] 25 mg PO Q12H PRN #10 tab 01/25/21 New Medications: Famotidine [Pepcid] 20 mg PO BID #60 tab Promethazine Tab [Phenergan*] 25 mg PO Q12H PRN #10 tab PRN Reason: Nausea / Vomiting Physician Discharge Instructions: Patient presented with nausea, vomiting and abdominal pain. Mild renal sufficiency noted with dehydration. Patient was admitted for observation. Patient improved. Patient able to tolerate her diet. Spoke with [id number] in detail concerning her condition. CT scan unremarkable. Chest x-ray unremarkable. Patient has seen GI in the past with some suspicion of GERD. Patient does take Phenergan as needed for nausea. This is a chronic medication given by her pain specialist. At discharge will recommend to start Pepcid 20 mg 1 pill twice daily as GERD is suspected. We will also refill her Phenergan 25 mg twice daily as needed for nausea. Recommend follow-up with GIDr. Sweat if her condition persists. Education on GERD diet provided. Recommend to recheck labBMP in 1 week to monitor her progress. Recommend to establish care with a local PCP to follow-up his hospitalization and continue her care. Patient with depression and dementia. Dementia appears mild. Patient may r estart her Effexor medication for depression. Patient previously on medication for memory loss in the past. Recommend a formal evaluation with neurology to evaluate her possible underlying dementia. This was expressed in detail with the [id number]. Contact information to neurology will be provided. If her Dementia is determined to be worse, then activities will need to be limited. She may have to her have driving restricted. Patient with chronic pain. Patient sees chronic pain management physician Dr. David Terrazas. Patient has received pain injections in the past. Continue with follow-up with pain management to further address her condition. Diet: soft gi Activity: Fall precautions Followup: NONE,NONE [Primary Care Provider] - Time spent managing pt's care (in minutes): 55
[2021-01-25] MEDS: D5.45NS W/KCL 20MEQ 1,000 ML IV SCH (09:42)
--- NOTE | 2021-01-25 11:33 | EKG ---
Test Date: 2021-01-24 Test Time: 18:03:16 Packing And Final Assembly Supervisor: FIDE MEASUREMENT RESULTS: Intervals: Rate: 67 WV: 154 QRSD: 72 QT: 426 QTc: 450 [place]: P: 59 WV: 154 QRS: 36 T: 59 INTERPRETIVE STATEMENTS: Normal sinus rhythm Normal ECG Compared to ECG 05/28/2020 03:54:40 T-wave abnormality no longer present Electronically Signed On 01-25-21 11:31:08 CDT by Segundo Blair
[2021-01-25 17:34] VITALS: BP 117/69; TEMP 97.4
[2021-01-25] MEDS ORDERED: VENLAFAXINE HCL XR 75 MG CAP PO SCH (21:00)
== END 2021-01-25 17:25 | disposition home or self-care (01) ==
LOC: ER 17:41 → ERHOLD 20:01 → 4TH 21:07
PROVIDERS: ADMIT Family Medicine; ATTEND Family Medicine
DX: R11.2 Nausea with vomiting, unspecified (principal); R10.9 Unspecified abdominal pain; E86.0 Dehydration; N28.9 Disorder of kidney and ureter, unspecified; Z20.822 Contact with and (suspected) exposure to COVID-19; F32.9 Major depressive disorder, single episode, unspecified; G89.29 Other chronic pain; G30.9 Alzheimer's disease, unspecified; F02.80 Dementia in other diseases classified elsewhere, unspecified severity, without behavioral disturbance, psychotic disturbance, mood disturbance, and anxiety; K74.60 Unspecified cirrhosis of liver
CPT/HCPCS: 96365; 96361; 93005; 87088; 85025 ×2; 87086; 80048; 36415; 83735 ×2; 85610; 80076; 84443; 84484; 84439; 83690 ×2; 80053; 83880; 74177; 71045; 97116; 97161; 96375; 99285; U0003; Q9967; J2550 ×2; J3480; J1650; J2175 ×3; J7040 ×2; J7030; J2405 ×2; G0378 ×3; 81003; 81015

== ENCOUNTER 2021-04-01 11:35 | Emergency (ER) | payer OTHER, BC ==
--- OUTSIDE RECORDS SUMMARY | 2021-04-01 11:38 | XMS REPORT | Continuity of Care Document ---
:1940 Author Organization [facility] t Address [address] [place] [address] Care Team Providers Name Role Phone Radiology [...] Type Clinicians Facility Department ID 2020-08-12 2020-08-12 [facility] Radiology [facility] [id number] 15:00:00 23:59:00 Encounter [place] [id number] [place] [id number] [place] [id number] Results Test Description Test Time Test Comments Results Result Comments Source CREATININE, Serum 2016-12-27 09:33:00 Test Item Value Reference Range Interpretation Comme nts Creatinine (test code = 1.0 mg/dl 0.4-1.2 CREA) EGFR if >60 mL/min/1.73m\S\2 (test code = EGFRAA) EGFR if Non- 57 mL/min/1.73m\S\2 E stimated Glomerular [place] (test code = Filtra tion Rate (eGFR) EGFRNA) Reference Inter vals Decision Points for 18 y ears and older and average bod y mass: >= 60 Does not exclude kid yesika disease. 30 - 59 Suggests moderate chroni c kidney disease and indica mya the need for further inv estigation including asses sment of proteinuria and cardiovascular factors. < 30 Us ually indicates a nee d for referral for assessment and management of chronic kidney failure. BLOOD UREA NTIROGEN (BUN)2016-12-27 09:33:00 Test Item Value Reference Range Interpretation Comments BUN (test code = BUN) 16.0 mg/dl 6.0-17.0
--- NOTE | 2021-04-01 12:23 | RAD REPORT ---
EXAM DESCRIPTION: CT - Head Brain Wo Cont - 04/01/2021 12:15 pm CLINICAL HISTORY: Head injury status post fall COMPARISON: 2019 TECHNIQUE: Computed axial tomography of the head was obtained. IV contrast was not requested. All CT scans are performed using dose optimization technique as appropriate and may include automated exposure control or mA/KV adjustment according to patient size. FINDINGS: Postsurgical changes involve the left parietal bone. Artifact from the hardware does obscu re evaluation of portions of the adjacent brain. An intracranial bleed is not seen . The ventricles are normal in caliber. No extra-axial fluid collection is noted. Fluid within the sinuses/ mastoids is not seen. IMPRESSION: No acute intracranial abnormality is seen. If patient's symptoms persist MRI of the bra in would be recommended.
--- NOTE | 2021-04-01 12:41 | RAD REPORT ---
EXAM DESCRIPTION: RAD - Knee Left 3 View - 04/01/2021 12:21 pm CLINICAL HISTORY: PAIN COMPARISON: No comparisons FINDINGS: No fracture, dislocation or periosteal reaction.No joint effusion seen. No joint space radha rowing. Meniscal degenerative calcifications are present. Soft tissues anterior to the patella are mi ldly prominent with the baseline for the patient unknown. No foreign body in the soft tissues. IMPRESSION: No acute bone or joint finding seen. Clinical concerns for internal derangement or occult bony injury could be further assessed with MR im aging.
--- NOTE | 2021-04-01 13:27 | EDPHYS ---
Physician Documentation [facility] Name: Milan Weir Age: 80 yrs Sex: Female : 1940 Arrival Date: 04/01/2021 Time: 11:37 Bed 30 Private MD: ANDREA GONZALEZ ED Physician Sean Seymour HPI: 04/01 12:20 This 80 yrs old Female presents to ER via Wheelchair with complaints of Fall jr8 Injury, Knee Pain. 12:20 Details of fall: The patient fell from an upright position, while standing. Onset: The jr8 symptoms/episode began/occurred acutely, today. Associated injuries: The patient sustained injury to the head, pain, left leg, painful injury. Severity of symptoms: At their worst the symptoms were moderate, in the emergency department the symptoms are unchanged. The patient has not experienced similar symptoms in the past. The patient has not recently seen a physician. 13:24 Patient stated that she tripped and fell on left knee and hit head. Was dazed for a few jr8 seconds. Denies any other trauma.. Historical: - Allergies: 12:02 Morphine; tw2 12:02 tramadol; tw2 12:02 Tylenol-Codeine; tw2 - PMHx: 12:02 Alzheimers; COPD; Hernia; Pancreatitis; tw2 - Immunization history:: Adult Immunizations . - Social history:: Smoking status: . - Immunization history: Last tetanus immunization: - up to date. ROS: 13:24 Eyes: Negative for injury, pain, redness, and discharge, ENT: Negative for injury, jr8 pain, and discharge, Neck: Negative for injury, pain, and swelling, Cardiovascular: Negative for chest pain, palpitations, and edema, Respiratory: Negative for shortness of breath, cough, wheezing, and pleuritic chest pain, Abdomen/GI: Negative for abdominal pain, nausea, vomiting, diarrhea, and constipation, Back: Negative for injury and pain, Skin: Negative for injury, rash, and discoloration. 13:24 MS/extremity: Positive for ecchymosis, pain, swelling, tenderness, of the Left knee. 13:24 Neuro: Positive for headache. Exam: 13:24 Constitutional: This is a well developed, well nourished patient who is awake, alert, jr8 and in no acute distress. Head/Face: Normocephalic, atraumatic. Neck: Trachea midline, no thyromegaly or masses palpated, and no cervical lymphadenopathy. Supple, full range of motion without nuchal rigidity, or vertebral point tenderness. No Meningismus. Chest/axilla: Normal chest wall appearance and motion. Nontender with no deformity. No lesions are appreciated. Cardiovascular: Regular rate and rhythm with a normal S1 and S2. No gallops, murmurs, or rubs. Normal PMI, no JVD. No pulse deficits. Respiratory: Lungs have equal breath sounds bilaterally, clear to auscultation and percussion. No rales, rhonchi or wheezes noted. No increased work of breathing, no retractions or nasal flaring. Abdomen/GI: Soft, non-tender, with normal bowel sounds. No distension or tympany. No guarding or rebound. No evidence of tenderness throughout. Back: No spinal tenderness. No costovertebral tenderness. Full range of motion. Skin: Warm, dry with normal turgor. Normal color with no rashes, no lesions, and no evidence of cellulitis. Neuro: Awake and alert, GCS 15, oriented to person, place, time, and situation. Cranial nerves II-XII grossly intact. Motor strength 5/5 in all extremities. Sensory grossly intact. 13:24 Musculoskeletal/extremity: Extremities: grossly normal except: noted in the left leg: Patient has moderate swelling to the left knee with ecchymosis over the patella. Pain with passive and active range of motion but no decreased range of motion noted. 2+ pedal pulses on affected extremity. Normal sensation noted. Vital Signs: 12:00 BP 118 / 85; Pulse 89; Resp 18; Temp 97.8(TE); Pulse Ox 100% on R/A; Weight 63.5 kg (R);tw2 13:51 BP 153 / 84; Pulse 66; Resp 16; Pulse Ox 99% on R/A; zb [place] Coma Score: 13:29 Eye Response: spontaneous(4). Verbal Response: oriented(5). Motor Response: obeys zb commands(6). Total: 15. Trauma Score (Adult): 13:29 Eye Response: spontaneous(1); Verbal Response: oriented(1); Motor Response: obeys zb commands(2); Systolic BP: > 89 mm Hg(4); Respiratory Rate: 10 to 29 per min(4); [place] Score: 15; Trauma Score: 12 MDM: 12:29 Patient medically screened. jr8 13:24 Data reviewed: vital signs, nurses notes, radiologic studies, CT scan, plain films. jr8 Data interpreted: Pulse oximetry: on room air is 100 %. Interpretation: normal. Counseling: I had a detailed discussion with the patient and/or guardian regarding: the historical points, exam findings, and any diagnostic results supporting the discharge/admit diagnosis, radiology results, the need for outpatient follow up, a family practitioner, to return to the emergency department if symptoms worsen or persist or if there are any questions or concerns that arise at home. 13:24 ED course: No acute intracranial or extracranial findings on CT. Left knee stable and jr8 without acute fracture. Pain medication given here and discussed that she needs to follow-up with her pain management physician otherwise.. 04/01 12:05 Order name: CT Head Brain wo Cont; Complete Time: 12:29 tw2 04/01 12:05 Order name: XRAY Knee LEFT 3 view; Complete Time: 13:03 tw2 Administered Medications: 13:22 Drug: fentaNYL (PF) 50 mcg {Note: RASS +1.} Route: IM; Site: right deltoid; zb 13:57 Follow up: Response: Marked relief of symptoms; Pain is decreased; RASS: Alert and Calm zb (0) 13:22 Not Given (Patient Refused): Ondansetron 4 mg PO once zb 13:22 Drug: Promethazine 25 mg Route: PO; zb 13:57 Follow up: Response: Nausea is decreased zb Disposition: 16:04 Co-signature as Attending Physician, Sean Seymour MD I agree with the assessment and nargis plan of care. Disposition Summary: 04/01/21 13:26 Discharge Ordered Location: Home jr8 Problem: new jr8 Symptoms: have improved jr8 Condition: Stable jr8 Diagnosis - Contusion of left knee jr8 Followup: jr8 - With: Private Physician - When: 2 - 3 days - Reason: Recheck today's complaints, Continuance of care, Re-evaluation by your physician Discharge Instructions: - Discharge Summary Sheet jr8 - Contusion jr8 Forms: - Medication Reconciliation Form jr8 - Thank You Letter jr8 - Antibiotic Education jr8 - Prescription Opioid Use jr8 Signatures: Dispatcher [employer] Sean Marks MD MD cha Roszak, Josh, PA PA jr8 Helen Lazo RN RN tw2 Neyda Cunha RN RN zb
--- NOTE | 2021-04-01 13:27 | ER ---
Nurse's Notes [facility] Name: Milan Weir Age: 80 yrs Sex: Female : 1940 Arrival Date: 04/01/2021 Time: 11:37 Bed 30 Private MD: ANDREA GONZALEZ Diagnosis: Contusion of left knee Presentation: 04/01 12:00 Chief complaint: Patient states: i fell 2 and a half hours ago. i was walking. i hit my tw2 left knee and my head and both hands. everything went black after i hit my head. Coronavirus screen: At this time, the client does not indicate any symptoms associated with coronavirus-19. Ebola Screen: Patient denies travel to an Ebola-affected area in the 21 days before illness onset. Initial Sepsis Screen: Does the patient meet any 2 criteria? No. Patient's initial sepsis screen is negative. Does the patient have a suspected source of infection? No. Patient's initial sepsis screen is negative. Risk Assessment: Do you want to hurt yourself or someone else? Patient reports no desire to harm self or others. Onset of symptoms was April 01, 2021. 12:00 Method Of Arrival: Wheelchair tw2 12:00 Acuity: JARRETT 3 tw2 12:02 Care prior to arrival: None. Mechanism of Injury: Fall from standing position. Trauma tw2 event details: Injury occurred in the [facility]. 12:03 Chief complaint: Patient states: i walked over here. tw2 12:04 Note denies LOC, provider Paras MONTGOMERY at bedside. tw2 Triage Assessment: 12:02 General: Appears in no apparent distress. uncomfortable, Behavior is cooperative, tw2 appropriate for age, anxious. Pain: Complains of pain in left knee. Trauma Activation: Alert Physician: ED Physician; Name: ; Notified At: ; Arrived At: Physician: General Surgeon; Name: ; Notified At: ; Arrived At: Physician: Radiology; Name: ; Notified At: ; Arrived At: Physician: Respiratory; Name: ; Notified At: ; Arrived At: Physician: Lab; Name: ; Notified At: ; Arrived At: Historical: - Allergies: 12:02 Morphine; tw2 12:02 tramadol; tw2 12:02 Tylenol-Codeine; tw2 - PMHx: 12:02 Alzheimers; COPD; Hernia; Pancreatitis; tw2 - Immunization history:: Adult Immunizations . - Social history:: Smoking status: . - Immunization history: Last tetanus immunization: - up to date. Screenin:28 Abuse screen: Denies threats or abuse. Denies injuries from another. Nutritional zb screening: No deficits noted. Tuberculosis screening: No symptoms or risk factors identified. Fall Risk Fall in past 12 months (25 points). No secondary diagnosis (0 pts). IV access (20 points). Ambulatory Aid- None/Bed Rest/Nurse Assist (0 pts). Gait- Normal/Bed Rest/Wheelchair (0 pts) Mental Status- Oriented to own ability (0 pts). Total Owen Fall Scale indicates Low Risk Score (25-44 pts). Fall prevention measures have been instituted. Side Rails Up X 2 Placed close to Nursing Station Frequent Obs/Assesments occuring As available Patient and Family Educated on Fall Prevention Program and strategies. Primary Survey: 12:04 NO uncontrolled hemorrhage observed. tw2 13:49 Breathing/Chest: Respiratory pattern: regular, Respiratory effort: spontaneous, Breath zb sounds: clear, Chest inspection: symmetrical rise and fall of the chest. Circulation: Cardiac rhythm: sinus rhythm. Disability Alert. Exposure/Environment: All clothing and personal items were removed. Forensic evidence collection is not deemed to be indicated at this time. Items placed in patient belonging bag. Reassessment Breathing/Chest Respiratory pattern Regular Circulation Heart rhythm Sinus rhythm Disability Alert. Assessment: 13:22 Reassessment: c/o nausea stated zofran doesn't work. notified ecp. verbal order. zb medication given. 13:23 General: Appears in no apparent distress. Behavior is calm, cooperative, appropriate zb for age. Pain: Complains of pain in forehead, base of the skull, back and left knee Pain currently is 8 out of 10 on a pain scale. Quality of pain is described as aching, crampy, sharp, Pain began 1 day ago. Neuro: Level of Consciousness is awake, alert. Cardiovascular: Patient's skin is warm and dry. Respiratory: Airway is patent. Derm: Bruising that is dark purple, on left knee. Musculoskeletal: Range of motion: intact in all extremities. 13:30 Reassessment: ecp at bedside discussing care. zb 13:57 Reassessment: patient ambulated out. advised to sit in lobby and wait for family to zb pick her up. gait even and steady. Vital Signs: 12:00 BP 118 / 85; Pulse 89; Resp 18; Temp 97.8(TE); Pulse Ox 100% on R/A; Weight 63.5 kg (R);tw2 13:51 BP 153 / 84; Pulse 66; Resp 16; Pulse Ox 99% on R/A; zb [place] Coma Score: 13:29 Eye Response: spontaneous(4). Verbal Response: oriented(5). Motor Response: obeys zb commands(6). Total: 15. Trauma Score (Adult): 13:29 Eye Response: spontaneous(1); Verbal Response: oriented(1); Motor Response: obeys zb commands(2); Systolic BP: > 89 mm Hg(4); Respiratory Rate: 10 to 29 per min(4); [place] Score: 15; Trauma Score: 12 ED Course: 11:37 Patient arrived in ED. ds1 11:37 ANDREA GONZALEZ is Private Physician. ds1 12:02 Triage completed. tw2 12:03 Arm band placed on. tw2 12:15 CT Head Brain wo Cont In Process Unspecified. EDMS 12:19 Paras Urbina PA is PHCP. jr8 12:19 Sean Seymour MD is Attending Physician. jr8 12:21 XRAY Knee LEFT 3 view In Process Unspecified. EDMS 12:55 Neyda Cunha, SANDY is Primary Nurse. zb 13:29 Patient has correct armband on for positive identification. Pulse ox on. NIBP on. Door zb closed. Noise minimized. 13:49 No provider procedures requiring assistance completed. zb 13:50 Patient did not have IV access during this emergency room visit. zb 13:50 Patient maintains SpO2 saturation greater than 95% on room air. zb 13:50 Thermoregulation: warm blanket given to patient. zb Administered Medications: 13:22 Drug: fentaNYL (PF) 50 mcg {Note: RASS +1.} Route: IM; Site: right deltoid; zb 13:57 Follow up: Response: Marked relief of symptoms; Pain is decreased; RASS: Alert and Calm zb (0) 13:22 Not Given (Patient Refused): Ondansetron 4 mg PO once zb 13:22 Drug: Promethazine 25 mg Route: PO; zb 13:57 Follow up: Response: Nausea is decreased zb Intake: 13:50 IV: 240ml; Total: 240ml. zb Outcome: 13:26 Discharge ordered by MD. vazquez 13:49 Discharged to home ambulatory. zb 13:49 Condition: good 13:49 Discharge instructions given to patient, Instructed on discharge instructions, follow up and referral plans. Demonstrated understanding of instructions, follow-up care. 13:50 Patient's length of stay was not longer than 2 hours. zb 13:58 Patient left the ED. zb Signatures: Dispatcher [employer] EDNM JohnsonKelley ds1 Paras Urbina PA PA jr8 Helen Lazo RN RN tw2 Neyda Cunha RN RN zb Corrections: (The following items were deleted from the chart) 12:04 12:00 Chief complaint: Patient states: i fell 2 and a half hours ago. i was walking. i tw2 hit my left knee and my head and both hands tw2 13:58 13:57 Reassessment: patient ambulated out. advised to sit in lobby and wait for family zb to pick her up. zb
[2021-04-01] MEDS ORDERED: PROMETHAZINE 25 MG TABLET ONE (13:37)
[2021-04-01] MEDS ORDERED: FENTANYL CITR 100 MCG/2 ML ONE (13:37)
[2021-04-01 14:04] VITALS: TEMP 97.8
[2021-04-01 14:06] VITALS: BP 153/84; O2SAT 99
== END 2021-04-01 13:58 | disposition home or self-care (01) ==
LOC: ER 11:35
DX: S80.02XA Contusion of left knee, initial encounter (principal); G30.9 Alzheimer's disease, unspecified; J44.9 Chronic obstructive pulmonary disease, unspecified; W01.0XXA Fall on same level from slipping, tripping and stumbling without subsequent striking against object, initial encounter
CPT/HCPCS: 70450; 73562; 96372; 99284; J3010; G0390; Q0169

== ENCOUNTER 2021-04-20 15:32 | Emergency (ER) | payer OTHER, BC ==
--- OUTSIDE RECORDS SUMMARY | 2021-04-20 15:34 | XMS REPORT | Continuity of Care Document ---
:1940 Author Organization [facility] t Address [address] [place] [address] Care Team Providers Name Role Phone Radiology [...] Type Clinicians Facility Department ID 2020-08-12 2020-08-12 [facility] Radiology [facility] [id number] 15:00:00 23:59:00 Encounter [place] [id number] [place] [id number] [place] [id number] Results Test Description Test Time Test Comments Results Result Comments Source CREATININE, Serum 2016-12-27 09:33:00 Test Item Value Reference Range Interpretation Comme nts Creatinine (test code = 1.0 mg/dl 0.4-1.2 CREA) EGFR if >60 mL/min/1.73m\S\2 (test code = EGFRAA) EGFR if Non- 57 mL/min/1.73m\S\2 E stimated Glomerular Swiss (test code = Filtra tion Rate (eGFR) [...]
[2021-04-20 16:14] LABS: Absolute Lymphocytes (CBC) 1.5 K/uL (0.7-4.9); Basophils % 0.7 % (0-1.3); Hematocrit 39.7 % (36.0-45.0); Lymphocytes % 21.6 % (15.3-44.8); MPV 7.9 fL (7.6-11.3); RBC Red Blood Cell Count 4.42 M/uL (3.86-4.86)
[2021-04-20] MEDS ORDERED: MEPERIDINE HCL 25 MG/ML SYR ONE ×2 (16:23→18:26)
[2021-04-20 16:32] LABS: Albumin 3.4 g/dL (3.4-5.0); Bilirubin Direct 0.1 mg/dL (0-0.2); Bilirubin Total 0.6 mg/dL (0.2-1.0); Potassium 3.8 mmol/L (3.5-5.1); Protein, Total 7.1 g/dL (6.4-8.2)
--- NOTE | 2021-04-20 17:18 | RAD REPORT ---
EXAM DESCRIPTION: CT - Abdomen Pelvis W Contrast - 04/20/2021 4:55 pm CLINICAL HISTORY: ABD PAIN COMPARISON: Abdomen Pelvis W Contrast dated 01/24/2021; Abdomen Pelvis W Contrast dated 11/16/2020 TECHNIQUE: Biphasic, helical CT imaging of the abdomen and pelvis was performed following 100 ml non -ionic IV contrast. No oral contrast administered. All CT scans are performed using dose optimization technique as appropriate and may include automated exposure control or mA/KV adjustment according to patient size. FINDINGS: No suspicious findings in the lung bases. The liver, spleen, and pancreas show no suspicious findings. Gallbladder is absent. No biliary tree a bnormal dilatation. Symmetric renal function is seen with no hydronephrosis or suspicious renal mass. No pyelonephritis o r acute parenchymal process. No bladder abnormalities. No adrenal abnormalities. Uterus is absent. At rophic, remnant ovarian tissue shows no acute or suspicious finding. No dilated bowel loops or bowel wall thickening. Moderate stool volume is present in the colon. No ap pendicitis findings. Sigmoid diverticulosis present, mild in degree, with no diverticulitis. No free air, free fluid or inflammatory stranding. No hernia, mass or bulky lymphadenopathy. No suspicious bony findings. Vascular calcifications are present no acute vascular finding. IMPRESSION: Contrast enhanced CT abdomen and pelvis showing no acute or emergent finding. No significant change from comparison.
--- NOTE | 2021-04-20 17:37 | ER ---
Nurse's Notes [facility] Name: Milan Weir Age: 80 yrs Sex: Female : 1940 Arrival Date: 04/20/2021 Time: 15:33 Bed 4 Private MD: Diagnosis: Upper abdominal pain, unspecified;Nausea with vomiting, unspecified Presentation: 04/20 15:42 Chief complaint: EMS states: N/V/D and upper abdominal pain since 0900 today. Phenergan hb 12.5 IVP administered to 20g RAC DESIGN DIRECTOR. VS WNL, NSR on 12 lead. Coronavirus screen: Client presents with at least one sign or symptom that may indicate coronavirus-19. Standard/surgical mask placed on the client. Provider contacted for isolation considerations. Ebola Screen: No symptoms or risks identified at this time. Initial Sepsis Screen: Does the patient meet any 2 criteria? No. Patient's initial sepsis screen is negative. Does the patient have a suspected source of infection? No. Patient's initial sepsis screen is negative. Risk Assessment: Do you want to hurt yourself or someone else? Patient reports no desire to harm self or others. Onset of symptoms was April 20, 2021. 15:42 Method Of Arrival: EMS: [facility] hb 15:42 Acuity: JARRETT 3 hb Triage Assessment: 15:44 General: Appears in no apparent distress. Behavior is calm, cooperative. Pain: Pain hb currently is 8 out of 10 on a pain scale. EENT: No signs and/or symptoms were reported regarding the EENT system. Neuro: Level of Consciousness is awake, alert, obeys commands, Oriented to person, place, time, situation. Cardiovascular: Patient's skin is warm and dry. Respiratory: Respiratory effort is even, unlabored, Respiratory pattern is regular, symmetrical. GI: Reports lower abdominal pain, upper abdominal pain, diarrhea, nausea, vomiting. : No signs and/or symptoms were reported regarding the genitourinary system. Derm: Skin is pink, warm \T\ dry. Musculoskeletal: No signs and/or symptoms reported regarding the musculoskeletal system. Historical: - Allergies: 15:43 Morphine; hb 15:43 tramadol; hb 15:43 Tylenol-Codeine; hb - PMHx: 15:43 Alzheimers; COPD; Hernia; Pancreatitis; hb - Immunization history:: Client reports receiving the 2nd dose of the Covid vaccine. - Social history:: Smoking status: Patient denies any tobacco usage or history of. Screenin:43 Abuse screen: Denies threats or abuse. Denies injuries from another. Nutritional sv screening: No deficits noted. Tuberculosis screening: No symptoms or risk factors identified. Fall Risk None identified. Assessment: 15:45 General: see triage assessment . hb 17:02 Reassessment: Patient appears in no apparent distress at this time. Patient and/or hb family updated on plan of care and expected duration. Pain level reassessed. Patient is alert, oriented x 3, equal unlabored respirations, skin warm/dry/pink. 18:18 Reassessment: Discharge pending transportation. hb Vital Signs: 15:42 BP 142 / 100; Pulse 73; Resp 16; Temp 97.3; Pulse Ox 100% on R/A; Pain 8/10; hb 16:39 BP 140 / 68; Pulse 69; Resp 14; Pulse Ox 100% ; sv 17:24 BP 134 / 75; Pulse 79; Resp 14; Pulse Ox 98% on R/A; hb ED Course: 15:33 Patient arrived in ED. ds1 15:40 Paras Urbina PA is PHCP. jr8 15:40 John Ramon MD is Attending Physician. jr8 15:43 Triage completed. hb 15:43 Arm band placed on. sv 15:43 Patient has correct armband on for positive identification. Placed in gown. Bed in low sv position. Call light in reach. Side rails up X2. monitoring engineer on. Pulse ox on. NIBP on. Door closed. Head of bed elevated. 15:45 Maintain EMS IV. Dressing intact. Good blood return noted. Site clean \T\ dry. Gauge \T\ sv site: 20G R AC. 16:55 CT Abd/Pelvis - IV Contrast Only In Process Unspecified. EDMS 17:02 Richa Hathaway, RN is Primary Nurse. hb 18:18 No provider procedures requiring assistance completed. IV discontinued, intact, hb bleeding controlled, No redness/swelling at site. Administered Medications: 16:03 Drug: Demerol (meperidine) 25 mg Route: IVP; Site: right antecubital; hb 16:35 Follow up: Response: No adverse reaction hb 18:17 Drug: Demerol (meperidine) 25 mg Route: IVP; Site: right antecubital; hb 18:17 Follow up: Response: Medication administered at discharge. hb 18:17 Drug: Promethazine 12.5 mg Route: IVP; Site: right antecubital; hb 18:17 Follow up: Response: Medication administered at discharge. hb Outcome: 17:36 Discharge ordered by MD. vazquez 18:18 Discharged to home via wheelchair, with family. hb 18:18 Condition: stable 18:18 Discharge instructions given to patient, Instructed on discharge instructions, follow up and referral plans. medication usage, Demonstrated understanding of instructions, follow-up care, medications, Prescriptions given X 2. 18:52 Patient left the ED. hb Signatures: Dispatcher [employer] Lida Jj, RN RN Kelley Chun ds1 Paras Urbina PA PA jr8 Baxter, Heather, RN RN hb
--- NOTE | 2021-04-20 17:37 | EDPHYS ---
Physician Documentation [facility] Name: Milan Weir Age: 80 yrs Sex: Female : 1940 Arrival Date: 04/20/2021 Time: 15:33 Bed 4 Private MD: ED Physician John Ramon HPI: 04/20 17:28 This 80 yrs old Female presents to ER via EMS with complaints of Abdominal jr8 Pain, Nausea/Vomiting/Diarrhea. 17:28 The patient presents with abdominal pain in the epigastric area. Onset: The jr8 symptoms/episode began/occurred acutely, today. The symptoms do not radiate. Associated signs and symptoms: Pertinent positives: nausea and vomiting. The symptoms are described as dull. Modifying factors: The symptoms are alleviated by nothing, the symptoms are aggravated by nothing. Severity of pain: At its worst the pain was moderate in the emergency department the pain is unchanged. The patient has experienced similar episodes in the past, a few times. The patient has not recently seen a physician. This is a 80-year-old female who presented to the emergency room via EMS for sudden onset of nausea vomiting and upper abdominal pain. Previous symptoms in the past and was contributed to chronic pancreatitis. Denies any fevers, body aches, chills.. Historical: - Allergies: 15:43 Morphine; hb 15:43 tramadol; hb 15:43 Tylenol-Codeine; hb - PMHx: 15:43 Alzheimers; COPD; Hernia; Pancreatitis; hb - Immunization history:: Client reports receiving the 2nd dose of the Covid vaccine. - Social history:: Smoking status: Patient denies any tobacco usage or history of. ROS: 17:28 Eyes: Negative for injury, pain, redness, and discharge, ENT: Negative for injury, jr8 pain, and discharge, Neck: Negative for injury, pain, and swelling, Cardiovascular: Negative for chest pain, palpitations, and edema, Respiratory: Negative for shortness of breath, cough, wheezing, and pleuritic chest pain, Back: Negative for injury and pain, MS/Extremity: Negative for injury and deformity, Skin: Negative for injury, rash, and discoloration, Neuro: Negative for headache, weakness, numbness, tingling, and seizure. 17:28 Abdomen/GI: Positive for abdominal pain, nausea and vomiting, Negative for diarrhea, hematemesis, black/tarry stool, rectal bleeding. Exam: 17:28 ENT: Nares patent. No nasal discharge, no septal abnormalities noted. Tympanic jr8 membranes are normal and external auditory canals are clear. Oropharynx with no redness, swelling, or masses, exudates, or evidence of obstruction, uvula midline. Mucous membranes moist. Cardiovascular: Regular rate and rhythm with a normal S1 and S2. No gallops, murmurs, or rubs. Normal PMI, no JVD. No pulse deficits. Respiratory: Lungs have equal breath sounds bilaterally, clear to auscultation and percussion. No rales, rhonchi or wheezes noted. No increased work of breathing, no retractions or nasal flaring. Back: No spinal tenderness. No costovertebral tenderness. Full range of motion. Skin: Warm, dry with normal turgor. Normal color with no rashes, no lesions, and no evidence of cellulitis. MS/ Extremity: Pulses equal, no cyanosis. Neurovascular intact. Full, normal range of motion. Neuro: Awake and alert, GCS 15, oriented to person, place, time, and situation. Cranial nerves II-XII grossly intact. Motor strength 5/5 in all extremities. Sensory grossly intact. 17:28 Abdomen/GI: Inspection: abdomen appears normal, Bowel sounds: active, all quadrants, Palpation: soft, in all quadrants, mild abdominal tenderness, in the right lower quadrant and left lower quadrant, mass, is not appreciated, rebound tenderness, is not appreciated, voluntary guarding, is not appreciated, involuntary guarding, is not appreciated, no appreciated organomegaly, Indicators: McBurney's point is not tender, Quiros's sign is negative, Liver: tenderness, is not appreciated. Vital Signs: 15:42 BP 142 / 100; Pulse 73; Resp 16; Temp 97.3; Pulse Ox 100% on R/A; Pain 8/10; hb 16:39 BP 140 / 68; Pulse 69; Resp 14; Pulse Ox 100% ; sv 17:24 BP 134 / 75; Pulse 79; Resp 14; Pulse Ox 98% on R/A; hb MDM: 15:[address] Patient medically [address] [facility] 17:28 Data reviewed: vital signs, nurses notes, lab test result(s), radiologic studies, CT jr8 scan. Data interpreted: Pulse oximetry: on room air is 98 %. Interpretation: normal. Counseling: I had a detailed discussion with the patient and/or guardian regarding: the historical points, exam findings, and any diagnostic results supporting the discharge/admit diagnosis, lab results, radiology results, the need for outpatient follow up, a family practitioner, a ship manager, to return to the emergency department if symptoms worsen or persist or if there are any questions or concerns that arise at home. Response to treatment: the patient's symptoms have markedly improved after treatment. Special discussion: Based on the patient's Hx, exam, and Dx evaluation, there is no indication for emergent surgery or inpatient Tx. It is understood by the patient/guardian that if the Sx's persist or worsen they need to return immediately for re-evaluation. 04/20 15:55 Order name: Basic Metabolic Panel; Complete Time: 16:42 04/20 15:55 Order name: CBC with Diff; Complete Time: 16:[address] [facility] 04/20 15:55 Order name: Hepatic Function; Complete Time: 16:[address] [facility] 04/20 15:55 Order name: Lipase; Complete Time: 16:42 04/20 16:42 Order name: CT Abd/Pelvis - IV Contrast Only; Complete Time: 17:28 04/20 15:55 Order name: IV Saline Lock; Complete Time: 15:58 04/20 15:55 Order name: Labs collected and sent; Complete Time: 15:58 Administered Medications: 16:03 Drug: Demerol (meperidine) 25 mg Route: IVP; Site: right antecubital; hb 16:35 Follow up: Response: No adverse reaction hb 18:17 Drug: Demerol (meperidine) 25 mg Route: IVP; Site: right antecubital; hb 18:17 Follow up: Response: Medication administered at discharge. hb 18:17 Drug: Promethazine 12.5 mg Route: IVP; Site: right antecubital; hb 18:17 Follow up: Response: Medication administered at discharge. hb Disposition: 18:57 Co-signature as Attending Physician, oJhn Ramon MD I agree with the assessment and rn plan of care. Attestation: The patient's history, exam findings, diagnostics, and a summary of any interventions or procedures was reviewed in detail with Paras MONTGOMERY. Disposition Summary: 04/20/21 17:36 Discharge Ordered Location: Home jr8 Problem: new jr8 Symptoms: have improved jr8 Condition: Stable jr8 Diagnosis - Upper abdominal pain, unspecified jr8 - Nausea with vomiting, unspecified jr8 Followup: jr8 - With: Private Physician - When: 2 - 3 days - Reason: Recheck today's complaints, Continuance of care, Re-evaluation by your physician Discharge Instructions: - Discharge Summary Sheet jr8 - Abdominal Pain, Adult jr8 Forms: - Medication Reconciliation Form jr8 - Thank You Letter jr8 - Antibiotic Education jr8 - Prescription Opioid Use jr8 Prescriptions: - promethazine 25 mg Oral Tablet - take 1 tablet by ORAL route every 6 hours As needed; 20 tablet; Refills: 0, jr8 Product Selection Permitted - dicyclomine 20 mg Oral Tablet - take 1 tablet by ORAL route 3 times per day As needed; 20 tablet; Refills: 0, jr8 Product Selection Permitted Signatures: Dispatcher [employer] EDTX John Ramon MD MD rn Roszak, Josh, PA PA jr8 Richa Hathaway RN RN
[2021-04-20] MEDS ORDERED: PROMETHAZINE INJ 25 MG/ML AMP ONE (18:26)
[2021-04-20 19:03] VITALS: TEMP 97.3
[2021-04-20 19:06] VITALS: BP 134/75; O2SAT 98
== END 2021-04-20 18:52 | disposition home or self-care (01) ==
LOC: ER 15:32
DX: R11.2 Nausea with vomiting, unspecified (principal); G30.9 Alzheimer's disease, unspecified; F02.80 Dementia in other diseases classified elsewhere, unspecified severity, without behavioral disturbance, psychotic disturbance, mood disturbance, and anxiety; Z88.5 Allergy status to narcotic agent
CPT/HCPCS: 85025; 80048; 36415; 80076; 83690; 74177; 96375; 96374; 99284; Q9967; J2550; J2175 ×2

== ENCOUNTER 2021-09-18 11:14 | Emergency (ER) | payer OTHER, BC ==
--- OUTSIDE RECORDS SUMMARY | 2021-09-18 11:17 | XMS REPORT | Continuity of Care Document ---
:1940 Author Organization [facility] t Address [address] [place] [address] Care Team Providers Name Role Phone Radiology Attending Clinician Unavailable RADIOLOGY Attending Clinician Unavailable IVONSON Attending Clinician Unavailable GENESIS Admitting Clinician Unavailable Payers Payer Name Policy Type Policy Number Effective Date Expiration Date S ource Problems This patient has no known problems. Allergies, Adverse Reactions, Alerts Allergy Allergy Status Severity Reaction(s) Onset Inactive Treating Comm ents Source Name Type Date Date Clinician NO KNOWN Drug Active Univers ALLERGIE Class ity of [facility] Social History Social Habit Start Date Stop Date Quantity Comments Source [facility] Smoking Status Start Date Stop Date Source Unknown if ever smoked [facility] Medications Ordered Filled Start Stop Current Ordering Indication Dosage Frequency Signature Comments Components Source Medication Medication Date Date Medication? Clinician (SIG) Name Name gadoteridol 2019-09- No .2mL/kg 0.2 mL/kg, Univers (PROHANCE-1 10-13 Intravenou i ty of 5 mL) 21:45: 22:15 s, ONCE, 1 [place] injection 00 :00 dose, Leni Medic al 0.2 mL/kg 08/12/20 Branch at 1545, Routine Procedures Procedure Date / Time Performed Performing Clinician Nas e MR ABDOMEN W WO 2020-08-12 22:16:07 Requisition, Paper [facility] CONTRAST [facility] Medical Branch NOTICE OF PRIVACY 2020-08-12 21:10:37 Doctor Unassigned, No Univ [facility] CONSENT/REFUSAL FOR 2020-08-12 21:10:07 Doctor Unassigned, No [facility] Medical Branch TREATMENT ASSIGNMENT OF BENEFITS 2020-08-12 21:09:46 Doctor Unassigned, No [facility] Medical Branch Encounters Start End Encounter Admission Attending Care Care Encounter Source Date/Time Date/Time Type Type Clinicians Facility Department ID 2020-08-12 2020-08-12 [facility] Radiology [facility] [id number] 15:00:00 23:59:00 Encounter [place] [id number] [place] [id number] [place] [id number] 2020-08-12 2020-08-12 [facility] Radiology [facility] [id number] Univers 15:00:00 23:59:00 Encounter [place] [id number] [facility]y [facility] [place] [id number] [facility] [id number] [place] [id number] Branch 2020-08-12 2020-08-12 Outpatient R RADIOLOGY [facility] [id number] [facility] Test Test Test Results Result Source Description Time Comments Comments MR ABDOMEN W WO 2020-08- HISTORY: Chronic Uni versity of CONTRAST MRCP 10 abdominal pain. [facility] 22:28:06 TECHNIQUE: MRI studies Br anch of the abdomen were obtained using T2 SSFSE, dualecho FSPGR, coronal VIBE/T2 HASTE, axial DWI, axial LAVA/T2 HASTEsequences. Multi phase T1 LAVA postcontrast images were obtained following intravenousinjection of 11 cc of ProHance. FINDINGS: Lower portions of the lungs appear unremarkable. No pleuraleffusion or pericardial effusion. Partially visualized feeling tightbilateral breast augmentation prosthesis is noted. There is probably a short sliding hiatal hernia. LIVER: Liver is approximately 14.2 cm in length. Out of phase SPGR imagesshowed slight loss of signal, suggestive of very mild fatty infiltration.No focal liver lesions visualized in the noncontrast or contrast enhancedstudies. BILE DUCTS, GALLBLADDER, PANCREAS: Cholecystectomy noted. MRCP imagesshowed slightly dilated extrahepatic bile ducts with common hepatic ductmeasuring 9 mm and mid segment of common bile duct measuring 8 mm. Thepancreatic duct is normal. No abnormalities seen in the pancreas. Adrenal glands are normal. Spleen appears normal. Both kidneys are normalexcept for 5 mm cyst in the lateral interpolar region of the left kidney.Upper right ureter is mildly dilated without significant hydronephrosis. Noleft-sided hydronephrosis. No perinephric fluid collection.. No aorticaneurysm or enlarged lymph nodes are seen in the retroperitoneum. Visualized bones and intestines showed no suspicious findings. ProminentSchmorl's node in the upper plate of L1 noted, likely secondary to remotetrauma. Grossly unremarkable visualized portions of the spinal cord andlumbar spinal canal. CONCLUSIONS:1. S/P cholecystectomy. Mildly dilated extrahepatic bile ducts could be dueto patient's age and prior cholecystectomy. Pancreatic duct is not dilated.2. Normal size liver with very mild hepatic steatosis suspected. Otherwisenormal MRI of abdomen without and with contrast including MRCP studies. [facility], Radiant Results Inft User - 08/12/2020 4:29 PM CSTHISTORY: Chronic abdominal pain.TECHNIQUE: MRI studies of the abdomen were obtained using T2 SSFSE, dualecho FSPGR, coronal VIBE/T2 HASTE, axial DWI, axial LAVA/T2 HASTEsequences.Multi phase T1 LAVA postcontrast images were obtained following intravenousinjection of 11 cc of ProHance.FINDINGS: Lower portions of the lungs appear unremarkable. No pleuraleffusion or pericardial effusion. Partially visualized feeling tightbilateral breast augmentation prosthesis is noted.There is probably a short sliding hiatal hernia.LIVER: Liver is approximately 14.2 cm in length. Out of phase SPGR imagesshowed slight loss of signal, suggestive of very mild fatty infiltration.No focal liver lesions visualized in the noncontrast or contrast enhancedstudies.BILE DUCTS, GALLBLADDER, PANCREAS: Cholecystectomy noted. MRCP imagesshowed slightly dilated extrahepatic bile ducts with common hepatic ductmeasuring 9 mm and mid segment of common bile duct measuring 8 mm. Thepancreatic duct is normal. No abnormalities seen in the pancreas.Adrenal glands are normal. Spleen appears normal. Both kidneys are normalexcept for 5 mm cyst in the lateral interpolar region of the left kidney.Upper right ureter is mildly dilated without significant hydronephrosis. Noleft-sided hydronephrosis. No perinephric fluid collection.. No aorticaneurysm or enlarged lymph nodes are seen in the retroperitoneum.Visualiz ed bones and intestines showed no suspicious findings. ProminentSchmorl's node in the upper plate of L1 noted, likely secondary to remotetrauma. Grossly unremarkable visualized portions of the spinal cord andlumbar spinal canal.CONCLUSIONS:1. S/P cholecystectomy. Mildly dilated extrahepatic bile ducts could be dueto patient's age and prior cholecystectomy. Pancreatic duct is not dilated.2. Normal size liver with very mild hepatic steatosis suspected. Otherwisenormal MRI of abdomen without and with contrast including MRCP studies. BLOOD UREA NTIROGEN (BUN) 2016-12-27 09:33:00 Test Item Value Reference Range Interpretation Comme nts BUN (test code = BUN) 16.0 mg/dl 6.0-17.0 CREATININE, [id number] 09:33:00 Test Item Value Reference Range Interpretation Comments Creatinine (test 1.0 mg/dl 0.4-1.2 code = CREA) EGFR if >60 [place] (test code mL/min/1.73m\ = EGFRAA) S\2 EGFR if Non- 57 Estimate d Glomerular [place] (test code mL/min/1.73m\ Filtrat ion Rate (eGFR) [...]
[2021-09-18 12:00] LABS: Absolute Lymphocytes (CBC) 0.6 K/uL (0.7-4.9); Hematocrit 41.9 % (36.0-45.0); Lymphocytes % 6.1 % (15.3-44.8); MPV 7.4 fL (7.6-11.3); RBC Red Blood Cell Count 4.61 M/uL (3.86-4.86)
[2021-09-18] MEDS ORDERED: PROMETHAZINE INJ 25 MG/ML AMP ONE ×2 (12:07→15:08)
[2021-09-18] MEDS ORDERED: MEPERIDINE HCL 25 MG/ML SYR ONE ×2 (12:08→15:08)
[2021-09-18 12:17] LABS: Albumin 3.4 g/dL (3.4-5.0); Bilirubin Direct 0.2 mg/dL (0-0.2); Bilirubin Total 0.8 mg/dL (0.2-1.0); Potassium 3.8 mmol/L (3.5-5.1); Protein, Total 7.2 g/dL (6.4-8.2)
[2021-09-18 13:15] LABS: Blood Morphology Comment NOT SEEN (NOT SEEN); Platelet Estimate ADEQ; White Blood Cell Scan OK (OK)
[2021-09-18] MEDS ORDERED: ONDANSETRON 4 MG (ODT) TAB ONE (13:27)
--- NOTE | 2021-09-18 13:30 | RAD REPORT ---
EXAM DESCRIPTION: CT - Abdomen Pelvis Wo Contrast - 09/18/2021 1:18 pm CLINICAL HISTORY: Abdominal pain. ABD PAIN COMPARISON: Abdomen Pelvis W Contrast dated 04/20/2021 TECHNIQUE: CT imaging of the abdomen and pelvis was performed without contrast. Solid organ, bowel a nd vascular assessment is limited due to lack of IV and oral contrast. All CT scans are performed using dose optimization technique as appropriate and may include automated exposure control or mA/KV adjustment according to patient size. FINDINGS: The lower lung us are clear.Cholecystectomy clips. The liver, spleen, pancreas, adrenal glands and kidneys are within normal limits for a limited non-co ntrast examination.Aortic atherosclerosis. No bowel obstruction, free air, free fluid or abscess. The appendix is not identified as a discrete structure, however, no secondary findings of appendicitis are identified. The osseous structures are within normal limits. IMPRESSION: No acute intra-abdominal or pelvic findings. A limited non-contrast examination was performed as detailed.
[2021-09-18 14:10] LABS: Urine Blood 1+ (Negative); Urine Glucose Negative (Negative); Urine Protein Negative (Negative); Urine Specific Gravity 1.025 (1.005-1.030); Urine pH 5.5 (5.0-7.0)
[2021-09-18 14:19] LABS: Calcium Oxalate Crystals- Ur FEW (NONE SEEN); Urine Bacteria <20 /HPF (<20); Urine Mucus 2+ /HPF (NONE SEEN); Urine RBC <5 /HPF (NONE SEEN)
[2021-09-18] MEDS ORDERED: FAMOTIDINE 20 MG TAB ONE (15:05)
--- NOTE | 2021-09-18 15:34 | ER ---
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 Pt has hx pancreatitis and states she thinks this is a flare up. Denies chest pain and SOB. Coronavirus screen: Vaccine status: Patient reports being unvaccinated. Client denies travel out of the [place] in the last 14 days. At this time, the client does not indicate any symptoms associated with coronavirus-19. Ebola Screen: Patient negative for fever greater than or equal to 101.5 degrees Fahrenheit, and additional compatible Ebola Virus Disease symptoms Patient denies exposure to infectious person. Patient denies travel to an Ebola-affected area in the 21 days before illness onset. No symptoms or risks identified at this time. Initial Sepsis Screen: Does the patient meet any 2 criteria? No. Patient's initial sepsis screen is negative. Does the patient have a suspected source of infection? No. Patient's initial sepsis screen is negative. Risk Assessment: Do you want to hurt yourself or someone else? Patient reports no desire to harm self or others. Onset of symptoms was September 18, 2021 at 08:00. 11:29 Method Of Arrival: EMS: [facility] ab2 11:29 Acuity: JARRETT 3 ab2 Triage Assessment: 11:34 General: Behavior is calm, appropriate for age. ab2 Historical: - Allergies: 11:31 Morphine; ab2 11:31 tramadol; ab2 11:31 Tylenol-Codeine; ab2 - Home Meds: 11:31 Unable to obtain [Active]; ab2 - PMHx: 11:31 Alzheimers; COPD; Hernia; Pancreatitis; ab2 - Immunization history:: Adult Immunizations unknown. - Social history:: Smoking status: Patient/guardian denies using tobacco, the patient reports quitting approximately 10 years ago. Screenin:33 Abuse screen: Denies threats or abuse. Denies injuries from another. Nutritional ab2 screening: No deficits noted. Tuberculosis screening: No symptoms or risk factors identified. Fall Risk Fall in past 12 months (25 points). Secondary diagnosis (15 points) No IV (0 pts). Ambulatory Aid- None/Bed Rest/Nurse Assist (0 pts). Gait- Normal/Bed Rest/Wheelchair (0 pts) Mental Status- Oriented to own ability (0 pts). Total Owen Fall Scale indicates Low Risk Score (25-44 pts). Fall prevention measures have been instituted. Side Rails Up X 2 Placed close to Nursing Station As available Patient and Family Educated on Fall Prevention Program and strategies. Assessment: 11:32 General: Appears in no apparent distress. uncomfortable. Pain: Complains of pain in ab2 abdomen Pain does not radiate. Pain currently is 10 out of 10 on a pain scale. Pain began suddenly, 3 hours ago. Neuro: No deficits noted. Level of Consciousness is awake, alert, obeys commands, Oriented to person, place, time, situation, Appropriate for age Cashier Ticket Selling are equal bilaterally Speech. Cardiovascular: No deficits noted. Denies chest pain, shortness of breath, Heart tones S1 S2 present Patient's skin is warm and dry. Chest pain is denied. Respiratory: No deficits noted. Airway is patent Breath sounds are clear bilaterally. Denies cough, shortness of breath. GI: No deficits noted. No signs and/or symptoms were reported involving the gastrointestinal system. GI: Abdomen is round non-distended, Pt is actively vomiting undigested food, Bowel sounds present X 4 quads. Abdomen is tender to palpation X 4 quads. Reports lower abdominal pain, upper abdominal pain, nausea, vomiting. : No deficits noted. No signs and/or symptoms were reported regarding the genitourinary system. EENT: No deficits noted. No signs and/or symptoms were reported regarding the EENT system. Derm: No deficits noted. No signs and/or symptoms reported regarding the dermatologic system. Musculoskeletal: No deficits noted. No signs and/or symptoms reported regarding the musculoskeletal system. 13:33 Reassessment: Patient appears in no apparent distress at this time. No changes from ab2 previously documented assessment. Vital Signs: 11:29 BP 123 / 68; Pulse 80; Resp 16; Pulse Ox 98% on R/A; Weight 61.23 kg; Height 5 ft. ab2 (152.40 cm); Pain 10/10; 12:20 BP 125 / 83; Pulse 83; Resp 16; Pulse Ox 96% on R/A; ab2 13:32 BP 137 / 72; Pulse 67; Resp 16; Temp 98.5(O); Pulse Ox 95% on R/A; ab2 14:30 BP 120 / 55; Pulse 70; Resp 16; Pulse Ox 99% on R/A; ab2 14:53 BP 113 / 56; Pulse 69; Resp 16 S; Pulse Ox 97% on R/A; ab2 15:30 BP 120 / 73; Pulse 87; Resp 16; Pulse Ox 94% on R/A; ab2 16:06 BP 114 / 69; Pulse 77; Resp 16; Pulse Ox 97% on R/A; ab2 11:29 Body Mass Index 26.37 (61.23 kg, 152.40 cm) ab2 ED Course: 11:15 Patient arrived in ED. ds1 11:17 Yehuda Marte NP is PHCP. pm1 11:17 Brent Davis MD is Attending Physician. pm1 11:19 Hari Carrillo is Primary Nurse. ab2 11:20 Jas Villanueva MD is Attending Physician. pm1 11:31 Triage completed. ab2 11:34 Arm band placed on right wrist. ab2 11:34 Patient has correct armband on for positive identification. Bed in low position. Call ab2 light in reach. Side rails up X2. 11:34 No provider procedures requiring assistance completed. ab2 12:10 Initial lab(s) drawn, by ED staff, sent to lab. Inserted saline lock: 22 gauge in right mh5 antecubital area, using aseptic technique. 12:11 Warm blanket given. Pulse ox on. NIBP on. mh5 13:19 Abdomen In Process Unspecified. EDMS 13:33 Cleaned of incontinence. ab2 14:10 Urine Microscopic Only Sent. ab2 15:33 Edenilson Tomlinson MD is Referral Physician. pm1 16:20 IV discontinued, intact, bleeding controlled, No redness/swelling at site. Pressure ab2 dressing applied. Administered Medications: 12:13 Drug: Demerol (meperidine) 25 mg Route: IVP; Site: right antecubital; ab2 14:48 Follow up: Response: No adverse reaction ab2 12:13 Drug: Phenergan (promethazine) 12.5 mg Route: IVP; Site: right antecubital; ab2 14:47 Follow up: Response: No adverse reaction ab2 13:30 Drug: Zofran (Ondansetron) 4 mg Route: PO; ab2 14:48 Follow up: Response: No adverse reaction ab2 14:59 CANCELLED (Physician Discretion): Pepcid (famotidine) 20 mg IVP once; dilute with 10 mL pm1 0.9% NaCl; give over 2 minutes 15:11 Drug: Demerol (meperidine) 25 mg Route: IM; Site: right ventrogluteal; ab2 16:06 Follow up: Response: No adverse reaction ab2 15:11 Drug: Phenergan (promethazine) 25 mg Route: IM; Site: left ventrogluteal; ab2 16:06 Follow up: Response: No adverse reaction ab2 15:12 Drug: Pepcid (famotidine) 20 mg Route: PO; ab2 16:06 Follow up: Response: No adverse reaction ab2 Outcome: 15:33 Discharge ordered by MD. pm1 16:20 Discharged to home via wheelchair, with family. ab2 16:20 Condition: good 16:20 Discharge instructions given to patient, family, Instructed on discharge instructions, follow up and referral plans. medication usage, Demonstrated understanding of instructions, follow-up care, medications, Prescriptions given X 2. 16:20 Patient left the ED. ab2 Signatures: Dispatcher [employer] [facility] Kelley Johnson 1 Yehuda Marte NP UNIX SYSTEMS ADMINISTRATOR pm1 Charlette Vargas Hari Baez ab2
--- NOTE | 2021-09-18 15:34 | EDPHYS ---
Physician Documentation [facility] Name: Milan Weir Age: 81 yrs Sex: Female : 1940 Arrival Date: 09/18/2021 Time: 11:15 Bed 26 Private MD: ED Physician Jas Villanueva HPI: 09/18 11:29 This 81 yrs old Female presents to ER via EMS with complaints of abdominal pain. pm1 11:29 The patient presents with abdominal pain that is diffuse. Onset: The symptoms/episode pm1 began/occurred 3 hour(s) ago. The symptoms do not radiate. Associated signs and symptoms: Pertinent positives: nausea and vomiting, Pertinent negatives: chest pain, diarrhea, dysuria, fever, shortness of breath. The symptoms are described as vague. Modifying factors: The symptoms are alleviated by nothing, the symptoms are aggravated by nothing. Severity of pain: in the emergency department the pain is unchanged. The patient has experienced similar episodes in the past, a few times, patient reports that it feels similar to prior pancreatitis flare up. The patient has not recently seen a physician. Historical: - Allergies: 11:31 Morphine; ab2 11:31 tramadol; ab2 11:31 Tylenol-Codeine; ab2 - Home Meds: 11:31 Unable to obtain [Active]; ab2 - PMHx: 11:31 Alzheimers; COPD; Hernia; Pancreatitis; ab2 - Immunization history:: Adult Immunizations unknown. - Social history:: Smoking status: Patient/guardian denies using tobacco, the patient reports quitting approximately 10 years ago. ROS: 11:29 Constitutional: Negative for fever, chills, and weight loss, Cardiovascular: Negative pm1 for chest pain, palpitations, and edema, Respiratory: Negative for shortness of breath, cough, wheezing, and pleuritic chest pain. 11:29 Back: Negative for injury and pain, : Negative for injury, bleeding, discharge, and swelling, MS/Extremity: Negative for injury and deformity, Skin: Negative for injury, rash, and discoloration, Neuro: Negative for headache, weakness, numbness, tingling, and seizure. 11:29 Abdomen/GI: Positive for abdominal pain, nausea and vomiting, Negative for diarrhea, constipation. 11:29 All other systems are negative. Exam: 11:29 Constitutional: This is a well developed, well nourished patient who is awake, alert, pm1 and in no acute distress. Head/Face: Normocephalic, atraumatic. 11:29 Back: No spinal tenderness. No costovertebral tenderness. Full range of motion. Skin: Warm, dry with normal turgor. Normal color with no rashes, no lesions, and no evidence of cellulitis. MS/ Extremity: Pulses equal, no cyanosis. Neurovascular intact. Full, normal range of motion. 11:29 Cardiovascular: Exam negative for acute changes, Rate: normal, Rhythm: regular, Pulses: no pulse deficits are appreciated, Heart sounds: normal. 11:29 Respiratory: Exam negative for acute changes, respiratory distress, shortness of breath, Breath sounds: are clear throughout. 11:29 Abdomen/GI: Inspection: abdomen appears normal, Palpation: abdomen is soft and non-tender, in all quadrants. 11:29 Neuro: Exam negative for acute changes, Orientation: is normal, Mentation: is normal, Motor: moves all fours. Vital Signs: 11:29 BP 123 / 68; Pulse 80; Resp 16; Pulse Ox 98% on R/A; Weight 61.23 kg; Height 5 ft. ab2 (152.40 cm); Pain 10/10; 12:20 BP 125 / 83; Pulse 83; Resp 16; Pulse Ox 96% on R/A; ab2 13:32 BP 137 / 72; Pulse 67; Resp 16; Temp 98.5(O); Pulse Ox 95% on R/A; ab2 14:30 BP 120 / 55; Pulse 70; Resp 16; Pulse Ox 99% on R/A; ab2 14:53 BP 113 / 56; Pulse 69; Resp 16 S; Pulse Ox 97% on R/A; ab2 15:30 BP 120 / 73; Pulse 87; Resp 16; Pulse Ox 94% on R/A; ab2 16:06 BP 114 / 69; Pulse 77; Resp 16; Pulse Ox 97% on R/A; ab2 11:29 Body Mass Index 26.37 (61.23 kg, 152.40 cm) ab2 MDM: 11:25 Patient medically screened. pm1 15:00 Data reviewed: vital signs. Data interpreted: Pulse oximetry: on. Counseling: I had a pm1 detailed discussion with the patient and/or guardian regarding: the historical points, exam findings, and any diagnostic results supporting the discharge/admit diagnosis, lab results, radiology results, the need for outpatient follow up, for definitive care, a oracle programmer analyst, Dr. Tomlinson for endoscopy and stool sample, to return to the emergency department if symptoms worsen or persist or if there are any questions or concerns that arise at home. 09/18 11:27 Order name: Basic Metabolic Panel; Complete Time: 12:38 pm1 09/18 11:27 Order name: CBC with Diff; Complete Time: 13:24 pm1 09/18 11:27 Order name: Hepatic Function; Complete Time: 12:38 pm1 09/18 11:27 Order name: Lipase; Complete Time: 12:38 pm1 09/18 11:27 Order name: Urine Microscopic Only; Complete Time: 14:21 pm09/18 13:15 Order name: CBC Smear Scan; Complete Time: 13:24 EDMS 09/18 13:13 Order name: Abdomen ; Complete Time: 13:35 EDKS 09/18 14:10 Order name: Urine Dipstick-Ancillary; Complete Time: 14:21 EDMS 09/18 11:27 Order name: IV Saline Lock; Complete Time: 12:13 pm1 09/18 11:27 Order name: Labs collected and sent; Complete Time: 12:13 pm1 09/18 11:27 Order name: Urine Dipstick-Ancillary (obtain specimen); Complete Time: 14:10 pm1 Administered Medications: 12:13 Drug: Demerol (meperidine) 25 mg Route: IVP; Site: right antecubital; ab2 14:48 Follow up: Response: No adverse reaction ab2 12:13 Drug: Phenergan (promethazine) 12.5 mg Route: IVP; Site: right antecubital; ab2 14:47 Follow up: Response: No adverse reaction ab2 13:30 Drug: Zofran (Ondansetron) 4 mg Route: PO; ab2 14:48 Follow up: Response: No adverse reaction ab2 14:59 CANCELLED (Physician Discretion): Pepcid (famotidine) 20 mg IVP once; dilute with 10 mL pm1 0.9% NaCl; give over 2 minutes 15:11 Drug: Demerol (meperidine) 25 mg Route: IM; Site: right ventrogluteal; ab2 16:06 Follow up: Response: No adverse reaction ab2 15:11 Drug: Phenergan (promethazine) 25 mg Route: IM; Site: left ventrogluteal; ab2 16:06 Follow up: Response: No adverse reaction ab2 15:12 Drug: Pepcid (famotidine) 20 mg Route: PO; ab2 16:06 Follow up: Response: No adverse reaction ab2 Disposition: 17:04 Co-signature as Attending Physician, Jas Villanueva MD I agree with the assessment and kdr plan of care. Disposition Summary: 09/18/21 15:33 Discharge Ordered Location: Home pm1 Problem: new pm1 Symptoms: have improved pm1 Condition: Stable pm1 Diagnosis - Abdominal pain, unspecified pm1 Followup: pm1 - With: Emergency Department - When: As needed - Reason: Worsening of condition Followup: pm1 - With: Private Physician - When: 2 - 3 days - Reason: Recheck today's complaints, Continuance of care, Re-evaluation by your physician Followup: pm1 - With: Edenilson Tomlinson MD - When: 2 - 3 days - Reason: Recheck today's complaints, Continuance of care, Re-evaluation by your physician Discharge Instructions: - Discharge Summary Sheet pm1 - Abdominal Pain, Adult pm1 Forms: - Medication Reconciliation Form pm1 - Thank You Letter pm1 - Antibiotic Education pm1 - Prescription Opioid Use pm1 Prescriptions: - ondansetron 4 mg Oral tablet,disintegrating - place 1 tablet by TRANSLINGUAL route every 8 hours As needed; 15 tablet; pm1 Refills: 0, Product Selection Permitted - Pepcid 20 mg Oral Tablet - take 1 tablet by ORAL route every 12 hours for 10 days; 20 tablet; Refills: 0, pm1 Product Selection Permitted Signatures: Dispatcher [employer] EDKS Jas Villanueva MD MD kdr Yehuda Marte NP SUPERVISORY LIFEGUARD pm1 Hari Carrillo ab2 Corrections: (The following items were deleted from the chart) 13:13 11:28 Abdomen Pelvis W Con+[id number].RAD.BRZ ordered. EDKS EDMS 14:59 14:57 Pepcid (famotidine) 20 mg IVP once; dilute with 10 mL 0.9% NaCl; give over 2 pm1 minutes ordered. pm1
[2021-09-18 16:29] VITALS: TEMP 98.5
[2021-09-18 16:36] VITALS: BP 114/69; O2SAT 97
== END 2021-09-18 16:20 | disposition home or self-care (01) ==
LOC: ER 11:14
DX: R10.9 Unspecified abdominal pain (principal); Z88.6 Allergy status to analgesic agent; G30.9 Alzheimer's disease, unspecified
CPT/HCPCS: 85025; 80048; 36415; 80076; 83690; 74176; 96375; 96372; 96374; 99284; J2550 ×2; J2175 ×2; 81003; 81015

== ENCOUNTER 2021-10-03 12:06 | Emergency (ER) | payer OTHER, BC ==
--- OUTSIDE RECORDS SUMMARY | 2021-10-03 12:07 | XMS REPORT | Continuity of Care Document ---
:1940 Author Organization [facility] t Address [address] [place] [address] Care Team Providers Name Role Phone Radiology [...] Active Univers ALLERGIE Class ity of S [facility] Social History Social Habit Start Date Stop Date Quantity Comments Source [facility] Smoking Status Start Date Stop Date Source Unknown if ever smoked [facility] Medications Ordered Filled Start Stop Current Ordering Indication Dosage Frequency Signature Comments Components Source Medication Medication Date Date Medication? Clinician (SIG) Name Name gadoteridol 2019-09- No .2mL/kg 0.2 mL/kg, Univers (PROHANCE-1 10-13 Intravenou i ty of 5 mL) 21:45: 22:15 s, ONCE, 1 [place] injection 00 :00 dose, Leni Medic al 0.2 mL/kg 08/12/20 Branch at 1545, Routine Procedures Procedure Date / Time Performed Performing Clinician Nas e MR ABDOMEN W WO 2020-08-12 22:16:07 Requisition, Paper [facility] CONTRAST [facility] Medical Branch NOTICE OF PRIVACY 2020-08-12 21:10:37 Doctor Unassigned, No Univ [facility] CONSENT/REFUSAL FOR 2020-08-12 21:10:07 Doctor Unassigned, No [facility] AND [facility] Medical Branch TREATMENT ASSIGNMENT OF BENEFITS 2020-08-12 21:09:46 Doctor Unassigned, No [facility] Name Medical Branch Encounters Start End Encounter Admission Attending Care Care Encounter Source Date/Time Date/Time Type Type Clinicians Facility Department ID 2020-08-12 2020-08-12 [facility] Radiology [facility] [id number] [facility] 15:00:00 23:59:00 [facility] [place] [id number] [id number] [id number] [place] [address] Branch 2020-08-12 2020-08-12 [facility] Radiology [facility] [id number] 15:00:00 23:59:00 Encounter [place] [id number] [place] [id number] [place] [id number] [facility] 2020-08-12 2020-08-12 Outpatient R RADIOLOGY [facility] [id number] [facility] 00:00:00 00:00:00 [facility] Results Test Test Test Results Result Source Description Time Comments Comments MR ABDOMEN W WO 2020-08- HISTORY: Chronic Uni versity of CONTRAST MRCP 10 abdominal pain. [facility] 22:28:06 TECHNIQUE: MRI studies Br anch of [...] code = BUN) 16.0 mg/dl 6.0-17.0 CREATININE, [id number] 09:33:00 Test Item Value Reference Range Interpretation Comments Creatinine (test 1.0 mg/dl 0.4-1.2 code = CREA) EGFR if >60 Cymraes (test code mL/min/1.73m\ = EGFRAA) S\2 EGFR if Non- 57 Estimate d Glomerular [place]ymraes (test code mL/min/1.73m\ Filtrat ion Rate (eGFR) [...]
--- NOTE | 2021-10-03 14:17 | ER ---
Nurse's Notes [facility] Name: Milan Weir Age: 81 yrs Sex: Female : 1940 Arrival Date: 10/03/2021 Time: 12:06 Bed Waiting Private MD: Diagnosis: Presentation: 10/03 12:09 Chief complaint: Patient states: pt with chronic abd pain and nausea started having jh6 lower abd pain and nausea x3 days. Coronavirus screen: Vaccine status: Patient reports receiving the 2nd dose of the covid vaccine. Ebola Screen: Patient negative for fever greater than or equal to 101.5 degrees Fahrenheit, and additional compatible Ebola Virus Disease symptoms. Initial Sepsis Screen: Does the patient meet any 2 criteria? No. Patient's initial sepsis screen is negative. Does the patient have a suspected source of infection? No. Patient's initial sepsis screen is negative. Risk Assessment: Do you want to hurt yourself or someone else? Patient reports no desire to harm self or others. Onset of symptoms was September 30, 2021. 12:09 Method Of Arrival: EMS: [facility] 12:09 Acuity: JARRETT 3 6 Triage Assessment: 12:11 General: Appears in no apparent distress. comfortable, well groomed, Behavior is calm, 6 appropriate for age. Pain: Complains of pain in right lower quadrant and left lower quadrant. GI: Abdomen is. Historical: - Allergies: 12:11 Morphine; 6 12:11 tramadol; 6 12:11 Tylenol-Codeine; 6 - PMHx: 12:11 Alzheimers; COPD; Hernia; Pancreatitis; [facility] - Immunization history:: Adult Immunizations . - Social history:: Smoking status: Patient reports the use of cigarette tobacco products. Vital Signs: 12:09 BP 109 / 68; Pulse 98; Resp 18; Temp 98.7(O); Pulse Ox 87% ; Weight 68.04 kg; Height 5 6 ft. 4 in. (162.56 cm); Pain 4/10; 12:09 Body Mass Index 25.75 (68.04 kg, 162.56 cm) [facility] ED Course: 12:06 Patient arrived in ED. am2 12:11 Triage completed. [facility] 12:12 Arm band placed on right wrist. [facility] Administered Medications: No medications were administered Outcome: 14:17 Patient left the ED. ss Signatures: Dolores Jeong RN RN ss Jeannine Alfaro am2 Dariana Arcos RN RN jh6
[2021-10-03 14:21] VITALS: BP 109/68; TEMP 98.7; O2SAT 87
== END 2021-10-03 14:17 | disposition left against medical advice (07) ==
LOC: ER 12:06
DX: R10.9 Unspecified abdominal pain (principal); R11.0 Nausea; Z53.21 Procedure and treatment not carried out due to patient leaving prior to being seen by health care provider; J44.9 Chronic obstructive pulmonary disease, unspecified; G30.9 Alzheimer's disease, unspecified; F02.80 Dementia in other diseases classified elsewhere, unspecified severity, without behavioral disturbance, psychotic disturbance, mood disturbance, and anxiety; F17.210 Nicotine dependence, cigarettes, uncomplicated; Z88.6 Allergy status to analgesic agent
CPT/HCPCS: 99282

== ENCOUNTER 2021-11-07 14:26 | Emergency (ER) | payer OTHER, BC ==
--- OUTSIDE RECORDS SUMMARY | 2021-11-07 14:29 | XMS REPORT | Continuity of Care Document ---
:1940 Author Organization [facility] t Address [address] [place] [address] Care Team Providers Name Role Phone Radiology [...] Active Univers ALLERGIE Class ity of S [facility] Social History Social Habit Start Date Stop Date Quantity Comments Source [facility] Smoking Status Start Date Stop Date Source Unknown if ever smoked [facility] Medications Ordered Filled Start Stop Current Ordering Indication Dosage Frequency Signature Comments Components Source Medication Medication Date Date Medication? Clinician (SIG) Name Name gadoteridol 2019-09- No .2mL/kg 0.2 mL/kg, Univers (PROHANCE-1 10-13 Intravenou i ty of 5 mL) 21:45: 22:15 s, ONCE, 1 [place] injection 00 :00 dose, Leni Medic al 0.2 mL/kg 08/12/20 Branch at 1545, Routine Procedures Procedure Date / Time Performed Performing Clinician Nas e MR ABDOMEN W WO 2020-08-12 22:16:07 Requisition, Paper [facility] CONTRAST [facility] Medical Branch NOTICE OF PRIVACY 2020-08-12 21:10:37 Doctor Unassigned, No Univ [facility] CONSENT/REFUSAL FOR 2020-08-12 21:10:07 Doctor Unassigned, No [facility] Medical Branch TREATMENT ASSIGNMENT OF BENEFITS 2020-08-12 21:09:46 Doctor Unassigned, No [facility] Name Medical Branch Encounters Start End Encounter Admission Attending Care Care Encounter Source Date/Time Date/Time Type Type Clinicians Facility Department ID 2020-08-12 2020-08-12 [facility] Radiology [facility] [id number] [facility] 15:00:00 23:59:00 [facility] [place] [id number] [id number] [id number] [place] [address] Branch 2020-08-12 2020-08-12 [facility] Radiology [facility] [id number] 15:00:00 23:59:00 Encounter [place] [id number] [place] [id number] [place] [id number] [facility] 2020-08-12 2020-08-12 Outpatient R RADIOLOGY [facility] [id number] [facility] 00:00:00 00:00:00 [facility] Results Test Test Test Results Result Source Description Time Comments Comments MR ABDOMEN W WO 2020-08- HISTORY: Chronic Uni versity of CONTRAST MRCP 10 abdominal pain. [facility] 22:28:06 TECHNIQUE: MRI studies Br [...] code = BUN) 16.0 mg/dl 6.0-17.0 CREATININE, [id number] 09:33:00 Test Item Value Reference Range Interpretation Comments Creatinine (test 1.0 mg/dl 0.4-1.2 code = CREA) EGFR if >60 [place] (test code mL/min/1.73m\ = EGFRAA) S\2 EGFR if Non- 57 Estimate d Glomerular [place] (test code mL/min/1.73m\ Filtrat ion Rate (eGFR) [...]
[2021-11-07] MEDS ORDERED: MORPHINE 4 MG/ML SYR ONE (15:03)
[2021-11-07] MEDS ORDERED: ONDANSETRON 4 MG/2 ML VIAL ONE (15:03)
[2021-11-07] MEDS ORDERED: MORPHINE 2 MG/ML SYR ONE (15:04)
[2021-11-07 15:06] LABS: MPV 7.2 fL (7.6-11.3); RBC Red Blood Cell Count 4.42 M/uL (3.86-4.86)
--- NOTE | 2021-11-07 15:23 | RAD REPORT ---
EXAM DESCRIPTION: CT - Spine Lumbar Wo Con - 11/07/2021 3:10 pm CLINICAL HISTORY: Radiculopathy. PAIN COMPARISON: Spine Lumbar Wo Con dated 10/07/2019; Abdomen Pelvis Wo Contrast dated 09/18/2021 TECHNIQUE: Axial noncontrast CT imaging of the lumbar spine was performed with coronal and sagittal re-formatted images. All CT scans are performed using dose optimization technique as appropriate and may include automated exposure control or mA/KV adjustment according to patient size. FINDINGS: No acute lumbar spine fracture seen. No aggressive marrow pattern or malalignment. Paraspinal tissues are normal in thickness. No paraspinal abscess or hematoma seen. Mild spondylosis in the form of posterior disc bulging is present lower lumbar levels. IMPRESSION: No acute lumbar spine abnormality. Mild lower lumbar degenerative spondylosis.
[2021-11-07 15:28] LABS: Albumin 3.1 g/dL (3.4-5.0); Bilirubin Direct 0.1 mg/dL (0-0.2); Bilirubin Total 0.4 mg/dL (0.2-1.0); Potassium 3.4 mmol/L (3.5-5.1); Protein, Total 6.7 g/dL (6.4-8.2)
--- NOTE | 2021-11-07 15:56 | ER ---
Nurse's Notes [facility] Name: Milan Weir Age: 81 yrs Sex: Female : 1940 Arrival Date: 11/07/2021 Time: 14:27 Bed 8 Private MD: Diagnosis: Low back pain;Chronic pain syndrome Presentation: 11/07 14:27 Chief complaint: Patient states: Patient received via EMS by stretcher from home alert ag7 and awake with complaints of lower back and generalized pain, weakness, and feelings of syncope. Report received from [facility]. Coronavirus screen: Client denies travel out of the [place] in the last 14 days. At this time, the client does not indicate any symptoms associated with coronavirus-19. Ebola Screen: No symptoms or risks identified at this time. Initial Sepsis Screen: Does the patient meet any 2 criteria? No. Patient's initial sepsis screen is negative. Does the patient have a suspected source of infection? No. Patient's initial sepsis screen is negative. Risk Assessment: Do you want to hurt yourself or someone else? Patient reports no desire to harm self or others. Onset of symptoms was November 07, 2021. 14:27 Method Of Arrival: EMS: [facility] 14:27 Acuity: JARRETT 3 ag7 Triage Assessment: 14:25 General: Appears uncomfortable, Behavior is calm, cooperative, appropriate for age. ll1 Pain: Complains of pain in low back Quality of pain is described as aching, Aggravated by increased activity. Neuro: Reports dizziness. Cardiovascular: No deficits noted. Respiratory: No deficits noted. GI: Reports nausea. Musculoskeletal: Circulation, motion, and sensation intact. Capillary refill < 3 seconds, Range of motion: intact in all extremities, Tenderness present in low back Reports pain in low back. Historical: - Allergies: 14:35 Morphine; ag7 14:35 tramadol; ag7 14:35 Tylenol-Codeine; ag7 - Home Meds: 14:35 Unable to obtain [Active]; ag7 - PMHx: 14:35 Alzheimers; COPD; Hernia; Pancreatitis; ag7 - PSHx: 14:35 steroid injections three weeks ago; Adenoid excision; Total abdominal hysterectomy; ag7 Tonsillectomy; 14:38 double masectomy; breast implants; ag7 14:41 stomach surgery to prevent vomiting; ag7 - Immunization history:: Adult Immunizations up to date, Client reports receiving the 2nd dose of the Covid vaccine. - Social history:: Smoking status: Patient/guardian denies using tobacco, but has a distant history of tobacco abuse. Screenin:34 Abuse screen: Denies threats or abuse. Nutritional screening: No deficits noted. ag7 Tuberculosis screening: No symptoms or risk factors identified. 15:25 Fall Risk Fall in past 12 months (25 points). IV access (20 points). Gait- Weak (10 ll1 pts.). Total Owen Fall Scale indicates High Risk Score (45 or more points). Fall prevention measures have been instituted. Side Rails Up X 2 Frequent Obs/Assessments Occuring As available patient and family educated on Fall Prevention Program and Strategies. Assessment: 15:24 Reassessment: No changes from previously documented assessment. Patient and/or family ll1 updated on plan of care and expected duration. Pain level reassessed. Patient is alert, oriented x 3, equal unlabored respirations, skin warm/dry/pink. 16:22 Reassessment: No changes from previously documented assessment. Patient and/or family ll1 updated on plan of care and expected duration. Pain level reassessed. Patient is alert, oriented x 3, equal unlabored respirations, skin warm/dry/pink. 16:38 Reassessment: No changes from previously documented assessment. Patient and/or family ll1 updated on plan of care and expected duration. Pain level reassessed. Patient is alert, oriented x 3, equal unlabored respirations, skin warm/dry/pink. Vital Signs: 14:27 BP 161 / 116; Pulse 71; Resp 20; Temp 97.8; Pulse Ox 98% on R/A; Weight 56.25 kg; ag7 Height 5 ft. 4 in. (162.56 cm) (R); Pain 10/10; 15:30 BP 154 / 90; Pulse 67; Pulse Ox 100% on R/A; ag7 16:00 BP 138 / 121; Pulse 72; Resp 19; Pulse Ox 100% on R/A; ag7 16:21 BP 134 / 84; Pulse 71; Resp 18; Pulse Ox 100% ; ll1 14:27 Body Mass Index 21.28 (56.25 kg, 162.56 cm) ag7 ED Course: 14:20 Arm band placed on Patient placed in an exam room, on a stretcher. ll1 14:27 Patient arrived in ED. ds1 14:32 Jovan Ashby MD is Attending Physician. sp3 14:34 Triage completed. ag7 14:35 EKG done, by ED staff, reviewed by Jovan Ashby MD. mb7 14:50 Inserted saline lock: 22 gauge in left antecubital area, using aseptic technique. Blood ll1 collected. 15:10 CT Lumbar Spine Wo Con In Process Unspecified. EDMS 15:25 Patient has correct armband on for positive identification. Call light in reach. Side ll1 rails up X2. Pulse ox on. NIBP on. 15:32 Zaira Zheng, RN is Primary Nurse. ll1 16:35 No provider procedures requiring assistance completed. IV discontinued, intact, ll1 bleeding controlled, No redness/swelling at site. Pressure dressing applied. Administered Medications: 15:03 Drug: Zofran (Ondansetron) 4 mg Route: IVP; Site: left antecubital; ll1 15:32 Follow up: Response: No adverse reaction ll1 15:05 Drug: morphine 5 mg Route: IVP; Site: left antecubital; ll1 15:32 Follow up: Response: No adverse reaction; Other; RASS: Alert and Calm (0); itching near ll1 IV site. Dr. Ashby imformed. Intake: Outcome: 15:55 Discharge ordered by . sp3 16:36 Discharged to home via wheelchair. ll1 16:36 Condition: stable 16:36 Discharge instructions given to patient, Instructed on discharge instructions, follow up and referral plans. no drinking with medication, no driving heavy equipment, medication usage, Demonstrated understanding of instructions, follow-up care, medications, Prescriptions given X 1. 16:38 Patient left the ED. ll1 16:42 Patient left the ED. ll1 Signatures: Dispatcher [employer] [facility] Kelley Johnson ds1 Zaira Zheng, RN RN ll1 Jovan Ashby MD MD sp3 Ivonne Damian 7 Faith Silverman RN RN 7
--- NOTE | 2021-11-07 15:56 | EDPHYS ---
Physician Documentation [facility] Name: Milan Weir Age: 81 yrs Sex: Female : 1940 Arrival Date: 11/07/2021 Time: 14:27 Bed 8 Private MD: ED Physician Jovan Ashby HPI: 11/07 14:48 This 81 yrs old Female presents to ER via EMS with complaints of Pain All Over. sp3 14:48 81-year-old female with a history of COPD, pancreatitis, Alzheimer's, lumbosacral sp3 degenerative disc disease presents to the ED with low back pain for approximately 1 week. Patient had a procedure done approximately 3 weeks ago with "pain medicine injections" by Dr. Pino. Patient denies fever, rash, swelling, headache, neck pain, chest pain, shortness of breath, loss of bowel control (patient has baseline incontinence x5 years), or any other ROS at this time. Pain is described as sharp but similar to pain she has had in the past. Patient reports no trauma.. Historical: - Allergies: 14:35 Morphine; ag7 14:35 tramadol; ag7 14:35 Tylenol-Codeine; ag7 - Home Meds: 14:35 Unable to obtain [Active]; ag7 - PMHx: 14:35 Alzheimers; COPD; Hernia; Pancreatitis; ag7 - PSHx: 14:35 steroid injections three weeks ago; Adenoid excision; Total abdominal hysterectomy; ag7 Tonsillectomy; 14:38 double masectomy; breast implants; ag7 14:41 stomach surgery to prevent vomiting; ag7 - Immunization history:: Adult Immunizations up to date, Client reports receiving the 2nd dose of the Covid vaccine. - Social history:: Smoking status: Patient/guardian denies using tobacco, but has a distant history of tobacco abuse. ROS: 14:50 Constitutional: Negative for fever, chills, and weight loss, Eyes: Negative for injury, sp3 pain, redness, and discharge, ENT: Negative for injury, pain, and discharge, Neck: Negative for injury, pain, and swelling, Cardiovascular: Negative for chest pain, palpitations, and edema, Respiratory: Negative for shortness of breath, cough, wheezing, and pleuritic chest pain, Abdomen/GI: Negative for abdominal pain, nausea, vomiting, diarrhea, and constipation, MS/Extremity: Negative for injury and deformity, Skin: Negative for injury, rash, and discoloration, Neuro: Negative for headache, weakness, numbness, tingling, and seizure, Psych: Negative for depression, anxiety, suicide ideation, homicidal ideation, and hallucinations, Allergy/Immunology: Negative for hives, rash, and allergies, Endocrine: Negative for neck swelling, polydipsia, polyuria, polyphagia, and marked weight changes. 14:50 All other systems are negative. Exam: 14:50 Constitutional: This is a well developed, well nourished patient who is awake, alert, sp3 and in no acute distress. Head/Face: Normocephalic, atraumatic. Eyes: Pupils equal round and reactive to light, extra-ocular motions intact. Lids and lashes normal. Conjunctiva and sclera are non-icteric and not injected. Cornea within normal limits. Periorbital areas with no swelling, redness, or edema. Neck: Trachea midline, no thyromegaly or masses palpated, and no cervical lymphadenopathy. Supple, full range of motion without nuchal rigidity, or vertebral point tenderness. No Meningismus. Chest/axilla: Normal chest wall appearance and motion. Nontender with no deformity. No lesions are appreciated. Cardiovascular: Regular rate and rhythm with a normal S1 and S2. No gallops, murmurs, or rubs. Normal PMI, no JVD. No pulse deficits. Respiratory: Lungs have equal breath sounds bilaterally, clear to auscultation and percussion. No rales, rhonchi or wheezes noted. No increased work of breathing, no retractions or nasal flaring. Abdomen/GI: Soft, non-tender, with normal bowel sounds. No distension or tympany. No guarding or rebound. No evidence of tenderness throughout. Back: No spinal tenderness. No costovertebral tenderness. Full range of motion. MS/ Extremity: Pulses equal, no cyanosis. Neurovascular intact. Full, normal range of motion. Neuro: Awake and alert, GCS 15, oriented to person, place, time, and situation. Cranial nerves II-XII grossly intact. Motor strength 5/5 in all extremities. Sensory grossly intact. Cerebellar exam normal. Normal gait. Psych: Awake, alert, with orientation to person, place and time. Behavior, mood, and affect are within normal limits. 14:50 Back: Lower back site without evidence of infection or erythema. Puncture site not visualized and there is no dressing on her lower back. Distal neurovascular exam is normal.. 14:51 ECG was reviewed by the Attending Physician. EKG demonstrates normal sinus rhythm at 70 sp3 bpm with normal intervals, normal axis, normal ST/T-segment without evidence of ischemia. Vital Signs: 14:27 BP 161 / 116; Pulse 71; Resp 20; Temp 97.8; Pulse Ox 98% on R/A; Weight 56.25 kg; ag7 Height 5 ft. 4 in. (162.56 cm) (R); Pain 10/10; 15:30 BP 154 / 90; Pulse 67; Pulse Ox 100% on R/A; ag7 16:00 BP 138 / 121; Pulse 72; Resp 19; Pulse Ox 100% on R/A; ag7 16:21 BP 134 / 84; Pulse 71; Resp 18; Pulse Ox 100% ; ll1 14:27 Body Mass Index 21.28 (56.25 kg, 162.56 cm) ag7 MDM: 14:36 Patient medically screened. sp3 14:52 Data reviewed: vital signs, nurses notes. ED course: 81-year-old female with low back sp3 pain exacerbation with recent procedure. We will get a CT scan of the lumbar spine to assess disc heights and assess for infectious etiology. Morphine for pain control. Patient states that she has had morphine in the past without any true allergy. I am not suspicious for cord compression, vascular compromise, any other critical findings at this time.. 15:54 ED course: Reviewed data 0.6. Laboratory values are normal and CT scan demonstrates no sp3 acute abnormality including signs of infection. No loss of disc heights past baseline noted. Will discharge patient home at this time with follow-up with her pain management physician.. 11/07 14:40 Order name: Basic Metabolic Panel; Complete Time: 15:54 sp3 11/07 14:40 Order name: CBC with Diff; Complete Time: 15:54 sp3 11/07 14:40 Order name: Hepatic Function; Complete Time: 15:54 sp3 11/07 14:40 Order name: Lipase; Complete Time: 15:54 sp3 11/07 14:43 Order name: CT Lumbar Spine Wo Con; Complete Time: 15:54 sp3 11/07 14:40 Order name: IV Saline Lock; Complete Time: 14:57 sp3 11/07 14:40 Order name: Labs collected and sent; Complete Time: 14:57 sp3 Administered Medications: 15:03 Drug: Zofran (Ondansetron) 4 mg Route: IVP; Site: left antecubital; ll1 15:32 Follow up: Response: No adverse reaction ll1 15:05 Drug: morphine 5 mg Route: IVP; Site: left antecubital; ll1 15:32 Follow up: Response: No adverse reaction; Other; RASS: Alert and Calm (0); itching near ll1 IV site. Dr. Ashby imformed. Disposition Summary: 11/07/21 15:55 Discharge Ordered Location: Home sp3 Condition: Stable sp3 Diagnosis - Low back pain sp3 - Chronic pain syndrome sp3 Followup: sp3 - With: Private Physician - When: Upon discharge from the Emergency Department - Reason: Recheck today's complaints Discharge Instructions: - Discharge Summary Sheet sp3 - Chronic Pain, Adult sp3 Forms: - Medication Reconciliation Form sp3 - Thank You Letter sp3 - Antibiotic Education sp3 - Prescription Opioid Use sp3 Prescriptions: - Tramadol 50 mg Oral Tablet - take 1 tablet by ORAL route every 8 hours as needed; 12 tablet; Refills: 0, sp3 Product Selection Permitted Signatures: Dispatcher [employer] Zaira Lawson, RN RN ll1 Jovan Ashby MD MD sp3 Faith Silverman RN RN ag7
[2021-11-07 17:11] VITALS: TEMP 97.8
[2021-11-07 17:12] VITALS: O2SAT 100
[2021-11-07 17:15] VITALS: BP 134/84
--- NOTE | 2021-11-08 12:51 | EKG ---
Test Date: 2021-11-07 Test Time: 14:31:08 Lens Dotter: DAVIN MEASUREMENT RESULTS: Intervals: Rate: 69 MI: 118 QRSD: 64 QT: 394 QTc: 422 Frontier: P: 59 MI: 118 QRS: 57 T: 68 INTERPRETIVE STATEMENTS: Normal sinus rhythm Normal ECG Compared to ECG 01/24/2021 18:03:16 No significant changes Electronically Signed On 11-08-21 12:49:36 INTELLIGENCE CHIEF by Segundo Blair
== END 2021-11-07 16:42 | disposition home or self-care (01) ==
LOC: ER 14:26
DX: G89.4 Chronic pain syndrome (principal); G30.9 Alzheimer's disease, unspecified; F02.80 Dementia in other diseases classified elsewhere, unspecified severity, without behavioral disturbance, psychotic disturbance, mood disturbance, and anxiety; Z98.82 Breast implant status; Z90.13 Acquired absence of bilateral breasts and nipples; Z88.5 Allergy status to narcotic agent
CPT/HCPCS: 93005; 85025; 80048; 36415; 80076; 83690; 72131; J2270; J2405; 96374; 96375; 99284

== ENCOUNTER 2022-04-14 16:00 | Emergency (ER) | payer OTHER, BC ==
--- OUTSIDE RECORDS SUMMARY | 2022-04-14 16:03 | XMS REPORT | Continuity of Care Document ---
:1940 Author Organization [facility] t Address [address] [place] [address] Care Team Providers Name Role Phone Radiology Attending Clinician Unavailable RADIOLOGY Attending Clinician Unavailable MIKHAIL HURTADO Attending Clinician Unavailable MIKHAIL HURTADO Admitting Clinician Unavailable Payers Payer Name Policy Type Policy Number Effective Date Expiration Date S ource Problems This patient has no known problems. Allergies, Adverse Reactions, Alerts Allergy Allergy Status Severity Reaction(s) Onset Inactive Treating Comm ents Source Name Type Date Date Clinician NO KNOWN Drug Active [facility] ALLERGIE Class [facility] of [facility] Social History Social Habit Start Date Stop Date Quantity Comments [facility] Status Start Date Stop Date Source Unknown if ever smoked [facility] Medications Ordered Filled Start Stop Current Ordering Indication Dosage Frequency Signature Comments Components Source Medication Medication Date Date Medication? Clinician (SIG) Name Name gadoteridol 2019-09 2020- No .2mL/kg 0.2 mL/kg, Univers (PROHANCE-1 10-13 Intravenou i ty of 5 mL) 21:45: 22:15 s, ONCE, 1 [place] injection 00 :00 dose, Leni Medic al 0.2 mL/kg 08/12/20 Branch at 1545, Routine Procedures Procedure Date / Time Performed Performing Clinician Nas rutherford MR ABDOMEN W WO 2020-08-12 22:16:07 Requisition, Paper [facility] CONTRAST MRCP Medical Branch NOTICE OF PRIVACY 2020-08-12 21:10:37 Doctor Unassigned, No Univ ersity [facility] Name Medical Branch CONSENT/REFUSAL FOR 2020-08-12 21:10:07 Doctor Unassigned, No [facility] Branch TREATMENT ASSIGNMENT OF BENEFITS 2020-08-12 21:09:46 Doctor Unassigned, No [facility] Name Medical Branch Encounters Start End Encounter Admission Attending Care Care Encounter Source Date/Time Date/Time Type Type Clinicians Facility Department ID 2020-08-12 2020-08-12 [facility] [id number] [facility] 15:00:00 23:59:00 [facility]counter [place] [id number] [id number] [facility] 804 Branch 2020-08-12 2020-08-12 [facility] [id number] 15:00:00 23:59:00 Encounter [place] [id number] [place] [id number] [place] [id number] 2020-08-12 2020-08-12 Outpatient R RADIOLOGY [facility] [id number] [facility] 00:00:00 00:00:00 [facility] Results Test Test Test Results Result Source Description Time Comments Comments MR ABDOMEN W WO 2020-08- HISTORY: Chronic Uni versity of CONTRAST MRCP 10 abdominal pain. [facility] 22:28:06 TECHNIQUE: MRI studies Br [...] without and with contrast including MRCP studies. Iamb, Radiant Results Inft User - 08/12/2020 4:29 [...] code = BUN) 16.0 mg/dl 6.0-17.0 CREATININE, [id number] 09:33:00 Test Item Value Reference Range Interpretation Comments Creatinine (test 1.0 mg/dl 0.4-1.2 code = CREA) EGFR if >60 [place] (test code mL/min/1.73m\ = EGFRAA) S\2 EGFR if Non- 57 Estimate d Glomerular [place] (test code mL/min/1.73m\ Filtrat ion Rate (eGFR) = EGFRNA) S\2 Reference Inter vals Decision Points for 18 years and older and average body ma ss: >= 60 Does not ex clude kidney disease. 30 - 59 Suggests mod erate chronic kidney disease and indicates t he need for further investigation including asses sment of proteinuria and cardiovascular factors. < 30 U sually indicates a nee d for referral for assessment and management of c hronic kidney failure.
[2022-04-14 16:26] LABS: Absolute Lymphocytes (CBC) 1.5 K/uL (0.7-4.9); Hematocrit 40.5 % (36.0-45.0); Lymphocytes % 26.4 % (15.3-44.8); MCV 91.8 fL (80-100); MPV 7.4 fL (7.6-11.3); RBC Red Blood Cell Count 4.42 M/uL (3.86-4.86)
[2022-04-14 16:27] LABS: Protime INR 0.99
[2022-04-14 16:59] LABS: ALT/SGPT 14 U/L (12-78); AST/SGOT 15 U/L (15-37); Albumin 3.2 g/dL (3.4-5.0); Alkaline Phosphatase 87 U/L (45-117); BUN Blood Urea Nitrogen 9 mg/dL (7-18); Bicarbonate 26 mmol/L (21-32); Bilirubin Total 0.4 mg/dL (0.2-1.0); Glomerular Filtration Rate 64 ml/min (=/>90); Glucose Level 124 mg/dL (74-106); Lipase 106 U/L (73-393); Magnesium 2.3 mg/dL (1.8-2.4); NT PRO-BNP 35 pg/mL (<450); Potassium 3.2 mmol/L (3.5-5.1); Protein, Total 7.1 g/dL (6.4-8.2); Sodium Level 140 mmol/L (136-145); Troponin High Sensitivity 4.7 pg/mL (<58.9)
--- NOTE | 2022-04-14 17:04 | RAD REPORT ---
EXAM DESCRIPTION: RAD - Chest Single View - 04/14/2022 4:21 pm CLINICAL HISTORY: weakness COMPARISON: Portable 01/24/2021 TECHNIQUE: AP portable chest image was obtained 04/14/2022 4:21 pm . FINDINGS: No focal lung parenchymal process seen. Interstitial pattern matches comparison. No failur e or volume overload suspected. Left subclavian Port-A-Cath is in place. Tip overlies the right atrium. Heart and vasculature are nor mal. No measurable pleural effusion and no pneumothorax. No acute bony abnormality seen. No acute aor tic findings suspected. IMPRESSION: No acute cardiopulmonary process. No significant change from comparison study.
[2022-04-14] MEDS ORDERED: PROMETHAZINE INJ 25 MG/ML AMP ONE ×2 (17:08→19:37)
[2022-04-14] MEDS ORDERED: FENTANYL CITR 100 MCG/2 ML ONE (17:09)
[2022-04-14] MEDS ORDERED: FAMOTIDINE 20 MG/2 ML VIAL IV ONE (17:09)
[2022-04-14 17:11] LABS: Bilirubin Direct < 0.1 mg/dL (0-0.2)
[2022-04-14 17:48] LABS: Urine Blood Trace-intact (Negative); Urine Glucose Negative (Negative); Urine Protein Negative (Negative); Urine Specific Gravity <=1.005 (1.005-1.030)
[2022-04-14 18:13] LABS: Urine Bacteria <20 /HPF (<20); Urine RBC <5 /HPF (None Seen)
--- NOTE | 2022-04-14 18:21 | RAD REPORT ---
EXAM DESCRIPTION: CT - Head Brain Wo Cont - 04/14/2022 6:13 pm CLINICAL HISTORY: weakness COMPARISON: Head Brain Wo Cont dated 04/01/2021 TECHNIQUE: Axial 5 mm thick images of the head were obtained without IV contrast. All CT scans are performed using dose optimization technique as appropriate and may include automated exposure control or mA/KV adjustment according to patient size. FINDINGS: No intracranial hemorrhage, mass, edema or shift of mid-line structures. No acute infarcti on changes seen. Atrophy changes are mild for age with ventricles in proportion. Minimal chronic isch emic change. Intracranial findings are similar to the March 2021 study. Delete select Mastoid air cells and visualized portions of the paranasal sinuses are clear. No acute bone findings. Numerous punctate metallic fragments are clustered in the left parietal bone similar to prior imaging. IMPRESSION: Negative non-contrast CT head examination for acute finding.
--- NOTE | 2022-04-14 18:24 | RAD REPORT ---
EXAM DESCRIPTION: CT - Abdomen Pelvis W Contrast - 04/14/2022 6:14 pm CLINICAL HISTORY: Abdominal pain, acute, nonlocalized COMPARISON: Abdomen Pelvis W Contrast dated 04/20/2021 TECHNIQUE: Biphasic, helical CT imaging of the abdomen and pelvis was performed following 100 ml non -ionic IV contrast. No oral contrast administered. All CT scans are performed using dose optimization technique as appropriate and may include automated exposure control or mA/KV adjustment according to patient size. FINDINGS: No suspicious findings in the lung bases. Bilateral breast implants are in place. The liver, spleen, and pancreas show no suspicious findings. Cholecystectomy clips are present. No ab normal biliary tree dilatation. Symmetric renal function is seen with no hydronephrosis or suspicious renal mass. No pyelonephritis o r acute parenchymal process. No bladder abnormalities. No adrenal abnormalities. Uterus is absent. Ov almita are absent or atrophic. No acute [employer] process. No dilated bowel loops or bowel wall thickening. Advanced sigmoid diverticulosis present without dive rticulitis. No direct or indirect evidence for appendicitis. No active GI process identifiable. No fr ee air, free fluid or inflammatory stranding. No hernia, mass or bulky lymphadenopathy. No suspicious bony findings. IMPRESSION: Contrast enhanced CT abdomen and pelvis showing no acute or emergent finding. No significant change from prior imaging.
[2022-04-14 19:15] LABS: SARS-CoV-2 Antigen Rapid Res Negative (Negative)
[2022-04-14] MEDS ORDERED: NA CHLORIDE 0.9% 50 ML ONE (19:37)
--- NOTE | 2022-04-14 20:04 | ER ---
Nurse's Notes [facility] Name: Milan Weir Age: 81 yrs Sex: Female : 1940 Arrival Date: 04/14/2022 Time: 16:03 Bed 18 Private MD: Diagnosis: Weakness;Hypokalemia;Nausea with vomiting, unspecified;Diarrhea, unspecified Presentation: 04/14 15:45 Chief complaint: EMS states: Patient called with c/o weakness, acid reflux, vomiting jg9 and diarrhea x 2 days. Patient reports she is very weak and just doesn't understand because she has never felt this way-a\T\ox4. Coronavirus screen: Vaccine status: Patient reports receiving the 2nd dose of the covid vaccine. Ebola Screen: Patient negative for fever greater than or equal to 101.5 degrees Fahrenheit, and additional compatible Ebola Virus Disease symptoms Patient denies exposure to infectious person. Patient denies travel to an Ebola-affected area in the 21 days before illness onset. Initial Sepsis Screen: Does the patient meet any 2 criteria? No. Patient's initial sepsis screen is negative. Does the patient have a suspected source of infection? No. Patient's initial sepsis screen is negative. Risk Assessment: Do you want to hurt yourself or someone else? Patient reports no desire to harm self or others. Onset of symptoms is unknown. 15:45 Method Of Arrival: EMS: [facility] jg9 15:45 Acuity: JARRETT 3 jg9 Triage Assessment: 15:45 General: Appears in no apparent distress. Behavior is calm, cooperative. Pain: jg9 Complains of pain in back Pain currently is 8 out of 10 on a pain scale. Pain began years ago. 15:45 GI: Reports diarrhea, nausea, vomiting. jg9 Historical: - Allergies: 16:06 Morphine; jg9 16:06 tramadol; jg9 16:06 Tylenol-Codeine; jg9 - PMHx: 16:06 Alzheimers; COPD; Hernia; Pancreatitis; jg9 - PSHx: 16:06 Adenoid excision; breast implants; double masectomy; steroid injections three weeks jg9 ago; stomach surgery to prevent vomiting; Tonsillectomy; Total abdominal hysterectomy; - Immunization history:: Client reports receiving the 2nd dose of the Covid vaccine, Pneumococcal vaccine is up to date, Flu vaccine is not up to date. - Social history:: Smoking status: Patient/guardian denies using tobacco, the patient reports quitting approximately 40 years ago. Screenin:08 Abuse screen: Denies threats or abuse. Denies injuries from another. Nutritional jg9 screening: No deficits noted. Tuberculosis screening: No symptoms or risk factors identified. Fall Risk None identified. Assessment: 16:00 Reassessment: No changes from previously documented assessment. patient reports she can jg9 only take Demerol for pain and Phenergan for nausea. 17:00 Reassessment: Patient and/or family updated on plan of care and expected duration. Pain jg9 level reassessed. Patient is alert, oriented x 3, equal unlabored respirations, skin warm/dry/pink. Patient is alert/active/playful, equal unlabored respirations, skin warm/dry/pink. Patient states feeling better. Patient states symptoms have improved. 18:00 Reassessment: Patient states feeling better. Patient states symptoms have improved. jg9 20:29 Reassessment: No changes from previously documented assessment. Patient and/or family sm5 updated on plan of care and expected duration. Pain level reassessed. Patient is alert, oriented x 3, equal unlabored respirations, skin warm/dry/pink. Vital Signs: 15:45 BP 130 / 96; Pulse 86; Resp 16 S; Temp 98.5(O); Pulse Ox 100% on R/A; Weight 57.15 kg jg9 (R); Height 5 ft. 4 in. (162.56 cm) (R); Pain 8/10; 16:00 BP 97 / 68; Pulse 65; Resp 14 S; Pulse Ox 97% on R/A; Pain 8/10; jg9 17:00 BP 140 / 74; Pulse 70; Resp 18; Pulse Ox 96% ; Pain 5/10; jg9 18:55 BP 152 / 68 Supine; Pulse 72; Resp 14 S; Pulse Ox 99% on R/A; jg9 19:00 BP 145 / 90 Sitting; Pulse 78; Resp 14 S; Pulse Ox 96% on R/A; jg9 19:05 BP 137 / 92 Standing; Pulse 81; Resp 17; Pulse Ox 96% on R/A; jg9 20:29 BP 152 / 86; Pulse 71; Resp 18; Pulse Ox 96% on R/A; sm5 15:45 Body Mass Index 21.63 (57.15 kg, 162.56 cm) jg9 ED Course: 16:03 Patient arrived in ED. jg9 16:03 Dariana Agustin, RN is Primary Nurse. j9 16:05 Sean Earl PA is PHCP. cp 16:05 Trey Arenas MD is Attending Physician. cp 16:06 Triage completed. jg9 16:08 Arm band placed on right wrist. jg9 16:08 Patient has correct armband on for positive identification. Bed in low position. Call jg9 light in reach. Side rails up X 1. 16:10 Inserted saline lock: 20 gauge in left antecubital area, using aseptic technique. Blood jg9 collected. 16:23 XRAY Chest (1 view) In Process Unspecified. EDMS 18:15 CT Head Brain wo Cont In Process Unspecified. EDMS 18:15 CT Abd/Pelvis - IV Contrast Only In Process Unspecified. EDMS 19:21 Primary Nurse role handed off by Dariana Agustin, SANDY eb 19:23 Valeria Marie, SANDY is Primary Nurse. sm5 20:29 No provider procedures requiring assistance completed. IV discontinued, intact, sm5 bleeding controlled, No redness/swelling at site. Pressure dressing applied. Administered Medications: 17:00 Drug: Pepcid (famotidine) 20 mg Route: IVP; Site: left antecubital; j9 17:30 Follow up: Response: No adverse reaction j9 17:00 Drug: fentaNYL (PF) 25 mcg Route: IVP; Site: left antecubital; jg9 17:30 Follow up: Response: No adverse reaction; Pain is decreased j9 17:03 Drug: Phenergan (promethazine) 12.5 mg Route: IVP; Site: left antecubital; jg9 17:30 Follow up: Response: No adverse reaction; Nausea is decreased j9 19:35 Drug: Phenergan (promethazine) 12.5 mg Route: IVP; Site: left antecubital; sm5 20:29 Follow up: Response: No adverse reaction sm5 20:15 Drug: Potassium Effervescent Tablet 50 mEq Route: PO; sm5 20:29 Follow up: Response: No adverse reaction 5 Medication: 20:29 VIS not applicable for this client. 5 Outcome: 20:04 Discharge ordered by . cp 20:30 Discharged to home via wheelchair. 5 20:30 Condition: stable 20:30 Discharge instructions given to patient, Instructed on discharge instructions, follow up and referral plans. medication usage, Demonstrated understanding of instructions, follow-up care, medications, Prescriptions given X 2. 20:30 Patient left the ED. 5 Signatures: Dispatcher [employer] EDMS Sean Earl PA PA cp Botello, Elizabeth eb Mazur, Sarah RN RN sm5 Dariana Agustin RN RN jg9
--- NOTE | 2022-04-14 20:04 | EDPHYS ---
Physician Documentation [facility] Name: Milan Weir Age: 81 yrs Sex: Female : 1940 Arrival Date: 04/14/2022 Time: 16:03 Bed 18 Private MD: ED Physician Trey Arenas HPI: 04/14 16:10 This 81 yrs old Female presents to ER via EMS with complaints of General Weakness. cp 16:10 The patient's problem is reported as weakness, that is generalized. cp 16:10 Onset: The symptoms/episode began/occurred today. cp 16:10 Duration: The episode is continuous. Associated signs and symptoms: Pertinent cp positives: abdominal pain, nausea, vomiting and diarrhea time 2 days. patient reports black colored stool with bowel movement. patient c/o pain all over, Pertinent negatives: diaphoresis, headache, shortness of breath. Patient's baseline: Neuro: alert and fully oriented, Motor: no deficits, Ambulation: walks without assistance, Speech: normal. Historical: - Allergies: 16:06 Morphine; jg9 16:06 tramadol; jg9 16:06 Tylenol-Codeine; jg9 - PMHx: 16:06 Alzheimers; COPD; Hernia; Pancreatitis; jg9 - PSHx: 16:06 Adenoid excision; breast implants; double masectomy; steroid injections three weeks jg9 ago; stomach surgery to prevent vomiting; Tonsillectomy; Total abdominal hysterectomy; - Immunization history:: Client reports receiving the 2nd dose of the Covid vaccine, Pneumococcal vaccine is up to date, Flu vaccine is not up to date. - Social history:: Smoking status: Patient/guardian denies using tobacco, the patient reports quitting approximately 40 years ago. ROS: 16:15 Constitutional: Positive for poor PO intake, Negative for body aches, chills, fever. cp 16:15 Eyes: Negative for injury, pain, redness, and discharge. cp 16:15 ENT: Negative for drainage from ear(s), ear pain, sore throat, difficulty swallowing, difficulty handling secretions. 16:15 Cardiovascular: Negative for chest pain, edema, palpitations. 16:15 Respiratory: Negative for cough, shortness of breath, wheezing. 16:15 Abdomen/GI: Positive for abdominal pain, nausea, vomiting, and diarrhea, anorexia, black/tarry stool, Negative for constipation. 16:15 Skin: Negative for cellulitis, rash. 16:15 Neuro: Positive for weakness, Negative for altered mental status, dizziness, headache, numbness, syncope. 16:15 All other systems are negative. Exam: 16:20 Constitutional: The patient appears in no acute distress, alert, awake, cp non-diaphoretic, non-toxic, well developed, well nourished. 16:20 Head/Face: Normocephalic, atraumatic. cp 16:20 Eyes: Periorbital structures: appear normal, Conjunctiva: normal, no exudate, no injection, Sclera: no appreciated abnormality, Lids and lashes: appear normal, bilaterally. 16:20 ENT: External ear(s): are unremarkable, Nose: is normal, Mouth: Lips: moist, Oral mucosa: pink and intact, moist, Posterior pharynx: Airway: no evidence of obstruction, patent. 16:20 Neck: ROM/movement: is normal, is supple, without pain, no range of motions limitations, no meningismus. 16:20 Chest/axilla: Inspection: normal. 16:20 Cardiovascular: Rate: normal, Rhythm: regular, Edema: is not appreciated, JVD: is not appreciated. 16:20 Respiratory: the patient does not display signs of respiratory distress, Respirations: normal, no use of accessory muscles, no retractions, labored breathing, is not present, Breath sounds: are clear throughout, no decreased breath sounds, no stridor, no wheezing. 16:20 Abdomen/GI: Inspection: abdomen appears normal, Bowel sounds: active, all quadrants, Palpation: soft, in all quadrants, mild abdominal tenderness, in all quadrants, rebound tenderness, is not appreciated, involuntary guarding, is not appreciated. 16:20 Back: CVA tenderness, is absent. 16:20 Skin: cellulitis, is not appreciated, no rash present. 16:20 Neuro: Orientation: to person, place \T\ time. Mentation: is normal, Motor: moves all fours, strength is normal, Sensation: is normal. 17:05 ECG was reviewed by the Attending Physician. cp 18:35 Radiologist reports: no acute intracranial findings cp 18:51 : Rectal exam: Stool: brown, soft, Guaiac testing: results were negative for occult cp blood. Vital Signs: 15:45 BP 130 / 96; Pulse 86; Resp 16 S; Temp 98.5(O); Pulse Ox 100% on R/A; Weight 57.15 kg 9 (R); Height 5 ft. 4 in. (162.56 cm) (R); Pain 8/10; 16:00 BP 97 / 68; Pulse 65; Resp 14 S; Pulse Ox 97% on R/A; Pain 8/10; jg9 17:00 BP 140 / 74; Pulse 70; Resp 18; Pulse Ox 96% ; Pain 5/10; jg9 18:55 BP 152 / 68 Supine; Pulse 72; Resp 14 S; Pulse Ox 99% on R/A; jg9 19:00 BP 145 / 90 Sitting; Pulse 78; Resp 14 S; Pulse Ox 96% on R/A; jg9 19:05 BP 137 / 92 Standing; Pulse 81; Resp 17; Pulse Ox 96% on R/A; jg9 20:29 BP 152 / 86; Pulse 71; Resp 18; Pulse Ox 96% on R/A; sm5 15:45 Body Mass Index 21.63 (57.15 kg, 162.56 cm) jg9 MDM: 16:18 Patient medically screened. cp 16:30 Differential diagnosis: metabolic disorder, drug effects, arrythmia, dehydration, acute cp MA, uti, sepsis. 20:03 Data reviewed: vital signs, nurses notes, lab test result(s), EKG, radiologic studies, cp CT scan, plain films. 20:03 Test interpretation: by ED physician or midlevel provider: ECG, plain radiologic cp studies. Counseling: I had a detailed discussion with the patient and/or guardian regarding: the historical points, exam findings, and any diagnostic results supporting the discharge/admit diagnosis, lab results, radiology results, to return to the emergency department if symptoms worsen or persist or if there are any questions or concerns that arise at home. Response to treatment: the patient's symptoms have markedly improved after treatment, and as a result, I will discharge patient. 04/14 16:06 Order name: Basic Metabolic Panel; Complete Time: 17:12 cp 04/14 17:12 Interpretation: Normal except: K 3.2; CL 108; GLUC 124; GFR 64. cp 04/14 16:06 Order name: CBC with Diff; Complete Time: 17:09 cp 08/12 17:10 Interpretation: Normal except: MPV 7.4; EOSINOPHIL % 8.5. cp 08/12 16:06 Order name: LFT's; Complete Time: 17:12 cp 08/12 17:12 Interpretation: Normal except: ALB 3.2; GLOB 3.9; A/G 0.8. cp 08/12 16:06 Order name: Magnesium; Complete Time: 17:12 cp 08/12 16:06 Order name: NT PRO-BNP; Complete Time: 17:12 cp 08/12 16:06 Order name: PT-INR; Complete Time: 17:09 cp 08/ 16:06 Order name: Troponin HS; Complete Time: 17:12 cp 08/12 16:06 Order name: XRAY Chest (1 view); Complete Time: 17:09 cp 08/12 17:10 Interpretation: Report review. cp 08/ 16:06 Order name: Urine Microscopic Only; Complete Time: 18:33 cp 08/12 16:42 Order name: Lipase; Complete Time: 17:12 EDMS / 17:49 Order name: Urine Dipstick-Ancillary; Complete Time: 18:33 EDMS 08/ 18:33 Interpretation: Normal except: UBLD Trace-intact; UESTR 2+. cp 08/ 18:16 Order name: Urine Culture EDMS 08/ 18:35 Order name: SARS RAPID; Complete Time: 20:02 cp 08/12 20:02 Interpretation: Reviewed. cp 08/12 16:06 Order name: EKG; Complete Time: 16:07 cp /12 16:06 Order name: Cardiac monitoring; Complete Time: 16:39 cp /12 16:06 Order name: EKG - Nurse/Tech; Complete Time: 17:04 cp /12 16:06 Order name: IV Saline Lock; Complete Time: 16:39 cp /12 16:06 Order name: Labs collected and sent; Complete Time: 16:39 cp 08/12 16:06 Order name: O2 Sat Monitoring; Complete Time: 16:40 cp 08/12 16:06 Order name: Urine Dipstick-Ancillary (obtain specimen); Complete Time: 19:14 cp 08/12 16:06 Order name: Orthostatics; Complete Time: 19:14 cp 08/12 17:12 Order name: CT Head Brain wo Cont; Complete Time: 18:33 cp 08 18:33 Interpretation: Report reviewed. cp 04/14 17:12 Order name: CT Abd/Pelvis - IV Contrast Only; Complete Time: 18:33 cp 08 18:33 Interpretation: Report reviewed. cp 08 18:35 Order name: PO challenge; Complete Time: 20:30 cp EC:05 Rate is 73 beats/min. Rhythm is regular. OH interval is normal. QRS interval is normal. cp QT interval is normal. T waves are Inverted in leads aVR, V2. Interpreted by me. Reviewed by me. Administered Medications: 17:00 Drug: Pepcid (famotidine) 20 mg Route: IVP; Site: left antecubital; j9 17:30 Follow up: Response: No adverse reaction 9 17:00 Drug: fentaNYL (PF) 25 mcg Route: IVP; Site: left antecubital; jg9 17:30 Follow up: Response: No adverse reaction; Pain is decreased j9 17:03 Drug: Phenergan (promethazine) 12.5 mg Route: IVP; Site: left antecubital; jg9 17:30 Follow up: Response: No adverse reaction; Nausea is decreased j9 19:35 Drug: Phenergan (promethazine) 12.5 mg Route: IVP; Site: left antecubital; sm5 20:29 Follow up: Response: No adverse reaction sm5 20:15 Drug: Potassium Effervescent Tablet 50 mEq Route: PO; sm5 20:29 Follow up: Response: No adverse reaction sm5 Disposition Summary: 04/14/22 20:04 Discharge Ordered Location: Home cp Problem: new cp Symptoms: have improved cp Condition: Stable cp Diagnosis - Weakness cp - Hypokalemia cp - Nausea with vomiting, unspecified cp - Diarrhea, unspecified cp Followup: cp - With: Private Physician - When: 2 - 3 days - Reason: Recheck today's complaints Discharge Instructions: - Discharge Summary Sheet cp - Food Choices to Help Relieve Diarrhea, Adult cp - Diarrhea, Adult cp - Potassium Content of Foods cp - Nausea and Vomiting, Adult cp - Weakness cp Forms: - Medication Reconciliation Form cp - Thank You Letter cp - Antibiotic Education cp - Prescription Opioid Use cp Prescriptions: - Protonix 40 mg Oral Tablet - take 1 tablet by ORAL route once daily; 30 tablet; Refills: 0, Product cp Selection Permitted - promethazine 25 mg Oral Tablet - take 1 tablet by ORAL route every 6 hours As needed; 20 tablet; Refills: 0, cp Product Selection Permitted Addendum: 04/16/2022 14:03 Attestation: The patient's history, exam findings, diagnostics, and a summary of any j r11 interventions or procedures was reviewed in detail with Sean MONTGOMERY. Signatures: Dispatcher [employer] EDMA Sean Earl PA PA cp Valeria Marie RN RN sm5 Dariana Agustin RN RN jg9 Trey Arenas MD MD jr11 Corrections: (The following items were deleted from the chart) 04/14 16:42 16:23 LIPASE+C.LAB.BRZ ordered. [facility] EDMA 19:14 16:06 Oxygen Per Protocol ordered. cp jg9 04/15 16:06 04/14 16:10 Associated signs and symptoms: Pertinent positives: abdominal pain, nausea, cp vomiting and diarrhea time 2 days. patient reports black colored stool with bowel movement, Pertinent negatives: diaphoresis, headache, shortness of breath, cp
[2022-04-14] MEDS ORDERED: POTASSIUM 25 MEQ EFFERV TAB ONE (20:22)
[2022-04-14 21:15] VITALS: O2SAT 96
[2022-04-14 21:19] VITALS: BP 152/86
== END 2022-04-14 20:30 | disposition home or self-care (01) ==
LOC: ER 16:00
DX: E87.6 Hypokalemia (principal); R11.2 Nausea with vomiting, unspecified; R19.7 Diarrhea, unspecified; G30.9 Alzheimer's disease, unspecified; F02.80 Dementia in other diseases classified elsewhere, unspecified severity, without behavioral disturbance, psychotic disturbance, mood disturbance, and anxiety; Z20.822 Contact with and (suspected) exposure to COVID-19; Z88.5 Allergy status to narcotic agent; Z98.82 Breast implant status
CPT/HCPCS: 87088; 85025; 87086; 80048; 36415; 83735; 85610; 80076; 84484; 83690; 83880; 70450; 74177; 71045; 96375; 96374; 99284; 87811; Q9967; J2550 ×2; J3010; 81003; 81015; 93005

== ENCOUNTER 2022-07-21 09:30 | Emergency (ER) | payer OTHER, BC ==
--- OUTSIDE RECORDS SUMMARY | 2022-07-21 09:33 | XMS REPORT | Continuity of Care Document ---
:1940 Author Organization [facility] t Address [address] [place] [address] Care Team Providers Name Role Phone GARY DREW Primary Care Physician Unavailable RADIOLOGY Attending Clinician Unavailable Radiology Attending Clinician Unavailable MIKHAIL HURTADO Attending Clinician Unavailable MEKA ORDAZ Admitting Clinician Unavailable MIKHAIL HURTADO Admitting Clinician Unavailable Payers Payer Name Policy Type Policy Number Effective Date Expiration Date S [facility] [place]IC[place] PART A \T\ [id number] 2004 B 00:00:00 BCBS TRADITIONAL [id number] 2017 00:00:00 Problems This patient has no known problems. Allergies, Adverse Reactions, Alerts Allergy Allergy Status Severity Reaction(s) Onset Inactive Treating Comm ents Source Name Type Date Date Clinician NO KNOWN Drug Active [facility] ALLERGIE Class ity of [facility] [place] [place] Social History Social Habit Start Date Stop Date Quantity Comments Source Sex Assigned At Uni versity [facility] Smoking Status Start Date Stop Date Source Unknown if ever smoked [facility] Medications Ordered Filled Start Stop Current Ordering Indication Dosage Frequency Signature Comments Components Source Medication Medication Date Date Medication? Clinician (SIG) Name Name gadoteridol 2019-09 2020- No .2mL/kg 0.2 mL/kg, Univers (PROHANCE-1 10-13 Intravenou i ty of 5 mL) 21:45: 22:15 s, ONCE, 1 [place] injection 00 :00 dose, Leni Medic al 0.2 mL/kg 08/12/20 Branch at 1545, Routine Procedures Procedure Date / Time Performed Performing Clinician Nas e MR ABDOMEN W WO 2020-08-12 22:16:07 Requisition, Paper [facility] CONTRAST MRCP Medical Branch NOTICE OF PRIVACY 2020-08-12 21:10:37 Doctor Unassigned, No [facility] Name Medical Branch CONSENT/REFUSAL FOR 2020-08-12 21:10:07 [facility], [facility] AND Name Medical Branch TREATMENT ASSIGNMENT OF BENEFITS 2020-08-12 21:09:46 Doctor Unassigned, No [facility] Name Medical Branch Encounters Start End Encounter Admission Attending Care Care Encounter Source Date/Time Date/Time Type Type Clinicians Facility Department ID 2020-08-12 2020-08-12 Outpatient R RADIOLOGY [facility] [id number] Univers 15:11:31 23:59:00 [facility] of [facility] Branch 2020-08-12 2020-08-12 [facility] Radiology [facility] [id number] Univers 15:00:00 23:59:00 Encounter [place] [id number] ity of [place] [id number] [facility] [id number] [facility] 804 Branch 2020-08-12 2020-08-12 [facility] Radiology [facility] [id number] 15:00:00 23:59:00 Encounter [place] [id number] [place] [id number] [place] [id number] Results Test Test Test Results Result Source Description Time Comments Comments MR ABDOMEN W WO 2020-08- HISTORY: Chronic Uni versity of CONTRAST MRCP 10 abdominal pain. [facility] 22:28:06 TECHNIQUE: MRI studies Br [...] without and with contrast including MRCP studies. [facility], Radiant Results Inft User - 08/12/2020 4:29 [...] (test code = BUN) 16.0 mg/dl 6.0-17.0 [facility] [id number] 09:33:00 Test Item Value Reference Range Interpretation Comments Creatinine (test 1.0 mg/dl 0.4-1.2 code = CREA) EGFR if >60 [place] (test code mL/min/1.73m\ = EGFRAA) S\2 EGFR if Non- 57 Estimate d Glomerular [place] (test code mL/min/1.73m\ Filtrat ion Rate (eGFR) = EGFRNA) S\2 Reference Inter vals Decision Points for 18 years and older and average body ma ss: >= 60 Does not exc lude kidney disease. 30 - 59 Suggests mod erate chronic kidney disease and indicates t he need for further investigation including asses sment of proteinuria and cardiovascular factors. < 30 U sually indicates a nee d for referral for assessment and management of c hronic kidney failure. [facility]
[2022-07-21 10:56] LABS: Absolute Lymphocytes (CBC) 1.5 K/uL (0.7-4.9); Hematocrit 45.1 % (36.0-45.0); MCV 90.4 fL (80-100); MPV 7.4 fL (7.6-11.3); RBC Red Blood Cell Count 4.99 M/uL (3.86-4.86)
[2022-07-21 11:17] LABS: Potassium 3.4 mmol/L (3.5-5.1)
--- NOTE | 2022-07-21 11:57 | RAD REPORT ---
EXAM DESCRIPTION: CT - Soft Tissue Neck W/Contr - 07/21/2022 11:37 am CLINICAL HISTORY: left sided neck swelling COMPARISON: Orbits W/Cont dated 12/14/2019; C Spine Wo Con dated 10/07/2019 TECHNIQUE: During dynamic enhancement using 100 milliliters nonionic IV contrast, axial 5 millimeter thick images of the neck were obtained. All CT scans are performed using dose optimization technique as appropriate and may include automated exposure control or mA/KV adjustment according to patient size. FINDINGS: Intracranial portion the exam is unremarkable. No globe or orbital content abnormality. Th e mastoid air cells and middle ears are clear bilaterally. No external auditory canal abnormality. No periauricular edema or focal abnormality seen. The parotid, submandibular and thyroid gland tissue show no suspicious findings. No abnormal soft tis marcos neck mass. There are few non nonspecific lymph nodes present. No pharyngeal mucosal mass or asymmetry. Epiglottis and laryngeal structures within range of normal. No acute vascular finding. Disc and bone degenerative changes are present. IMPRESSION: Patient has a few nonspecific cervical lymph nodes. No clearly defined mass or soft tiss ue edema. No periauricular soft tissue abnormality seen. External auditory canal is clear in the mastoid air ce lls and middle ear are clear as well.
--- NOTE | 2022-07-21 12:07 | ER ---
Nurse's Notes [facility] Name: Milan Weir Age: 82 yrs Sex: Female : 1940 Arrival Date: 07/21/2022 Time: 09:33 Bed 19 Private MD: Diagnosis: Enlarged lymph nodes, unspecified Presentation: 07/21 10:21 Chief complaint: Patient states: Left side of neck swelling with Left ear pain x 3 vg1 days. Coronavirus screen: Vaccine status: Patient reports receiving the 2nd dose of the covid vaccine. Client denies travel out of the [place] in the last 14 days. Ebola Screen: Patient negative for fever greater than or equal to 101.5 degrees Fahrenheit, and additional compatible Ebola Virus Disease symptoms. Initial Sepsis Screen: Does the patient meet any 2 criteria? RR > 20 per min. Does the patient have a suspected source of infection? No. Patient's initial sepsis screen is negative. Risk Assessment: Do you want to hurt yourself or someone else? Patient reports no desire to harm self or others. Onset of symptoms was July 18, 2022. 10:21 Method Of Arrival: Ambulatory vg1 10:21 Acuity: JARRETT 3 vg1 Triage Assessment: 10:23 General: Appears in no apparent distress. uncomfortable, Behavior is calm, cooperative. vg1 Pain: Complains of pain in left ear and left side of neck. Respiratory: Airway is patent Respiratory effort is even, labored, Respiratory pattern is tachypnea. Historical: - Allergies: 10:23 Morphine; vg1 10:23 tramadol; vg1 10:23 Tylenol-Codeine; vg1 - PMHx: 10:23 Alzheimers; COPD; Hernia; Pancreatitis; vg1 - PSHx: 10:23 Adenoid excision; breast implants; double masectomy; steroid injections three weeks vg1 ago; stomach surgery to prevent vomiting; Tonsillectomy; Total abdominal hysterectomy; - Immunization history:: Client reports receiving the 2nd dose of the Covid vaccine. - Social history:: Smoking status: Patient denies any tobacco usage or history of. Screenin:43 Abuse screen: Denies threats or abuse. Denies injuries from another. Nutritional ld1 screening: No deficits noted. Tuberculosis screening: No symptoms or risk factors identified. Fall Risk None identified. Assessment: 10:43 General: Appears in no apparent distress. comfortable, Behavior is calm, cooperative, ld1 appropriate for age. Pain: Complains of pain in left jaw Pain does not radiate. Pain currently is 3 out of 10 on a pain scale. Quality of pain is described as throbbing, Pain began suddenly. Neuro: Level of Consciousness is awake, alert, obeys commands, Oriented to person, place, time, situation. Cardiovascular: Capillary refill < 3 seconds Patient's skin is warm and dry. Respiratory: Airway is patent Respiratory effort is even, unlabored. Respiratory: Denies shortness of breath pain with respiration. GI: Abdomen is flat, non-distended. : No signs and/or symptoms were reported regarding the genitourinary system. EENT: No signs and/or symptoms were reported regarding the EENT system. EENT: Throat is clear. Derm: No signs and/or symptoms reported regarding the dermatologic system. Musculoskeletal: No signs and/or symptoms reported regarding the musculoskeletal system. Vital Signs: 10:21 BP 131 / 99; Pulse 89; Resp 22; Temp 98.0(O); Pulse Ox 98% on R/A; Weight 61.23 kg; vg1 Height 5 ft. 4 in. (162.56 cm); Pain 10/10; 10:43 BP 135 / 88; Pulse 80; Resp 18; Pulse Ox 100% on R/A; Pain 3/10; ld1 10:21 Body Mass Index 23.17 (61.23 kg, 162.56 cm) vg1 ED Course: 09:33 Patient arrived in ED. as 10:23 Triage completed. vg1 10:23 Arm band placed on. vg1 10:26 Keith Dodge PA is PHCP. [facility] 10:26 Sean Seymour MD is Attending Physician. [facility] 10:35 Queenie Dhaliwal, SANDY is Primary Nurse. ld1 10:43 Patient has correct armband on for positive identification. Placed in gown. Bed in low ld1 position. Call light in reach. Side rails up X2. Pulse ox on. NIBP on. Door closed. Noise minimized. Warm blanket given. 10:43 No provider procedures requiring assistance completed. Inserted saline lock: 22 gauge ld1 in right antecubital area, using aseptic technique. Blood collected. 10:45 CBC with Diff Sent. ld1 10:46 BMP Sent. ld1 11:39 CT Soft Tissue Neck W/contr In Process Unspecified. EDMS 12:06 Lida Maravilla MD is Referral Physician. [facility] 12:31 IV discontinued, intact, bleeding controlled, No redness/swelling at site. ld1 Administered Medications: No medications were administered Medication: 10:43 VIS not applicable for this client. ld1 Outcome: 12:06 Discharge ordered by . jmm 12:30 Discharged to home ambulatory. ld1 12:30 Condition: stable 12:30 Discharge instructions given to patient, Instructed on discharge instructions, follow up and referral plans. medication usage, Demonstrated understanding of instructions, follow-up care, medications, Prescriptions given X 1. 12:31 Patient left the ED. ld1 Signatures: Dispatcher [employer] EDMS Keith Dodge PA PA jmm Martinez, Amelia as Garcia, Victoria, RN RN vg1 Queenie Dhaliwal RN RN ld1
--- NOTE | 2022-07-21 12:07 | EDPHYS ---
Physician Documentation [facility] Name: Milan Weir Age: 82 yrs Sex: Female : 1940 Arrival Date: 07/21/2022 Time: 09:33 Bed 19 Private MD: ED Physician Sean Seymour HPI: 07/21 10:33 This 82 yrs old Female presents to ER via Ambulatory with complaints of Facial Swelling.[facility] 10:33 Onset: The symptoms/episode began/occurred gradually. jmm 12:01 Associated signs and symptoms: Pertinent negatives: cough, fever. This is an 82 year jmm old female with a history of copd, hernia, pancreatitis, that presents to the ED with complaints of left sided neck pain and swelling which radiates into her left ear. Denies fever or chills. . Historical: - Allergies: 10:23 Morphine; vg1 10:23 tramadol; vg1 10:23 Tylenol-Codeine; vg1 - PMHx: 10:23 Alzheimers; COPD; Hernia; Pancreatitis; vg1 - PSHx: 10:23 Adenoid excision; breast implants; double masectomy; steroid injections three weeks vg1 ago; stomach surgery to prevent vomiting; Tonsillectomy; Total abdominal hysterectomy; - Immunization history:: Client reports receiving the 2nd dose of the Covid vaccine. - Social history:: Smoking status: Patient denies any tobacco usage or history of. ROS: 12:01 Constitutional: Negative for fever, chills, and weight loss. jmm 12:01 Cardiovascular: Negative for chest pain, palpitations, and edema, Respiratory: Negative for shortness of breath, cough, wheezing, and pleuritic chest pain, Abdomen/GI: Negative for abdominal pain, nausea, vomiting, diarrhea, and constipation, Back: Negative for injury and pain, Skin: Negative for injury, rash, and discoloration. 12:01 Neck: Positive for swollen nodes. 12:01 All other systems are negative. Exam: 12:01 Constitutional: This is a well developed, well nourished patient who is awake, alert, jmm and in no acute distress. Head/Face: atraumatic. Eyes: EOMI, no conjunctival erythema appreciated 12:01 Chest/axilla: Normal chest wall appearance and motion. Cardiovascular: Regular rate and rhythm. No edema appreciated Respiratory: Normal respirations, no respiratory distress appreciated Abdomen/GI: Non distended Back: Normal ROM Skin: General appearance color normal MS/ Extremity: Moves all extremities, no obvious deformities appreciated, no edema noted to the lower extremities Neuro: Awake and alert Psych: Behavior is normal, Mood is normal, Patient is cooperative and pleasant 12:01 ENT: TM's: are normal. 12:01 Neck: Lymph nodes: lymphadenopathy is appreciated, anterior cervical nodes. Vital Signs: 10:21 BP 131 / 99; Pulse 89; Resp 22; Temp 98.0(O); Pulse Ox 98% on R/A; Weight 61.23 kg; vg1 Height 5 ft. 4 in. (162.56 cm); Pain 10/10; 10:43 BP 135 / 88; Pulse 80; Resp 18; Pulse Ox 100% on R/A; Pain 3/10; ld1 10:21 Body Mass Index 23.17 (61.23 kg, 162.56 cm) vg1 MDM: 10:33 Patient medically screened. [facility] 12:04 Data reviewed: vital signs, nurses notes. Counseling: I had a detailed discussion with jyoti the patient and/or guardian regarding: the historical points, exam findings, and any diagnostic results supporting the discharge/admit diagnosis, lab results, radiology results, the need for outpatient follow up, to return to the emergency department if symptoms worsen or persist or if there are any questions or concerns that arise at home. ED course: Patient is alert and non toxic in appearance in the ED. No signs of resp distress. Advised to follow up with ent for further evaluation. patient understood and agrees with the plan of care. . 07/21 10:36 Order name: BMP; Complete Time: 11:21 [facility] 07/21 10:36 Order name: CBC with Diff; Complete Time: 11:21 [facility] 07/21 10:34 Order name: CT Soft Tissue Neck W/contr; Complete Time: 11:58 [facility] 07/21 10:34 Order name: Saline Lock; Complete Time: 10:46 [facility] Administered Medications: No medications were administered Disposition Summary: 07/21/22 12:06 Discharge Ordered Location: Home [facility] Condition: Stable [facility] Diagnosis - Enlarged lymph nodes, unspecified [facility] Followup: sylvester - With: Lida Maravilla MD - When: 2 - 3 days - Reason: Recheck today's complaints, Continuance of care, Re-evaluation by your physician Discharge Instructions: - Discharge Summary Sheet sylvester - Lymphadenopathy [facility] Forms: - Medication Reconciliation Form jyoti - Thank You Letter jyoti - Antibiotic Education jyoti - Prescription Opioid Use jyoti Prescriptions: - Amoxicillin 875 mg Oral Tablet - take 1 tablet by ORAL route every 12 hours for 10 days; 20 tablet; Refills: 0, jmm Product Selection Permitted Addendum: 07/23/2022 13:31 Co-signature as Attending Physician, Sean Seymour MD I agree with the assessment and c sena plan of care. Signatures: Dispatcher [employer] Sean Marks MD MD cha Mickail, Joel, PA PA jmm Garcia, Victoria, RN RN vg1
[2022-07-21 13:06] VITALS: TEMP 98
[2022-07-21 13:08] VITALS: BP 135/88; O2SAT 100
== END 2022-07-21 12:31 | disposition home or self-care (01) ==
LOC: ER 09:30
DX: R59.0 Localized enlarged lymph nodes (principal); J44.9 Chronic obstructive pulmonary disease, unspecified; G30.9 Alzheimer's disease, unspecified; F02.80 Dementia in other diseases classified elsewhere, unspecified severity, without behavioral disturbance, psychotic disturbance, mood disturbance, and anxiety; Z88.5 Allergy status to narcotic agent
CPT/HCPCS: 85025; 80048; 36415; 70491; 99284; Q9967

== ENCOUNTER 2022-07-26 18:47 | Inpatient (IN) | payer OTHER, BC ==
--- OUTSIDE RECORDS SUMMARY | 2022-07-26 18:51 | XMS REPORT | Continuity of Care Document ---
:1940 Author Organization [facility] t Address [address] [place] [address] Care Team Providers Name Role Phone GARY DREW Primary Care Physician Unavailable RADIOLOGY Attending Clinician Unavailable Radiology Attending Clinician Unavailable MIKHAIL HURTADO Attending Clinician Unavailable MEKA ORDAZ Admitting Clinician Unavailable MIKHAIL HURTADO Admitting Clinician Unavailable Payers Payer Name Policy Type Policy Number Effective Date Expiration Date S humberto MEDICARE PART A \T\ [id number] 2004 B 00:00:00 BCBS TRADITIONAL [id number] 2017 00:00:00 Problems This patient has no known problems. Allergies, Adverse Reactions, Alerts Allergy Allergy Status Severity Reaction(s) Onset Inactive Treating Comm ents Source Name Type Date Date Clinician NO KNOWN Drug Active Univers ALLERGIE Class ity of S [facility] Social History Social Habit Start Date Stop Date Quantity Comments Source Sex Assigned At Uni versity [facility] Smoking Status Start Date Stop Date Source Unknown [facility] Medications Ordered Filled Start Stop Current Ordering Indication Dosage Frequency Signature Comments Components Source Medication Medication Date Date Medication? Clinician (SIG) Name Name gadoteridol 2019-09 2020- No .2mL/kg 0.2 mL/kg, Univers (PROHANCE-1 10-13 Intravenou i ty of 5 mL) 21:45: 22:15 s, ONCE, 1 [place] injection 00 :00 dose, Leni Medic al 0.2 mL/kg 08/12/20 Branch at 1545, Routine Procedures Procedure Date / Time Performed Performing Clinician Nas rutherford MR ABDOMEN W WO 2020-08-12 22:16:07 Requisition, Paper [facility] CONTRAST [facility] Medical Branch NOTICE OF PRIVACY 2020-08-12 21:10:37 Doctor Unassigned, No Univ [facility] PRACTICES Name Medical Branch CONSENT/REFUSAL FOR 2020-08-12 21:10:07 [facility]assigned, No [facility] Medical Branch TREATMENT ASSIGNMENT OF BENEFITS 2020-08-12 21:09:46 Doctor Unassigned, No [facility] Name Medical Branch Encounters Start End Encounter Admission Attending Care Care Encounter Source Date/Time Date/Time Type Type Clinicians Facility Department ID 2020-08-12 2020-08-12 Outpatient R RADIOLOGY [facility] [id number] Univers 15:11:31 23:59:00 ity of [facility] Branch 2020-08-12 2020-08-12 [facility] Radiology [facility] [id number] 15:00:00 23:59:00 Encounter [place] [id number] [place] [id number] [id number] 2020-08-12 2020-08-12 [facility] Radiology [facility] [id number] Univers 15:00:00 23:59:00 Encounter Seymour [id number] ity of [place] [id number] [facility] [id number] [facility] 804 Branch Results Test Test Test Results Result Source Description Time Comments Comments MR ABDOMEN W WO 2020-08- HISTORY: Chronic Uni versity of CONTRAST MRCP 10 abdominal pain. [facility] 22:28:06 TECHNIQUE: MRI studies [...] (test code = BUN) 16.0 mg/dl 6.0[facility]17.0 [facility] [id number] 09:33:00 Test Item Value Reference Range Interpretation Comments Creatinine (test 1.0 mg/dl 0.4-1.2 code = CREA) EGFR if >60 Tanz[place] (test code mL/min/1.73m\ = EGFRAA) S\2 EGFR if Non- 57 Estimate d Glomerular Tanzanian (test code mL/min/1.73m\ Filtrat ion Rate (eGFR) = EGFRNA) S\2 Reference Inter vals Decision Points for 18 years and older and average body ma ss: >= 60 Does not exc lude kidney disease. 30 - 59 Suggests mo derate chronic kidney disease and indicates t he need for further investigation including asses sment of proteinuria and cardiovascular factors. < 30 U sually indicates a nee d for referral for assessment and management of c hronic kidney failure. [facility]
[2022-07-26] MEDS ORDERED: MAGNESIUM SULFATE 1 gm IVPB 1 GM/100 ML BAG IV ONE (19:34)
[2022-07-26] MEDS ORDERED: LEVALBUTEROL 1.25 MG/3 ML NEB ONE (19:34)
[2022-07-26] MEDS ORDERED: Levofloxacin 750mg IV 0 MG/0 ML BAG IV ONE (19:34)
--- NOTE | 2022-07-26 19:50 | RAD REPORT ---
EXAM DESCRIPTION: RAD - Chest Single View - 07/26/2022 7:38 pm CLINICAL HISTORY: Cough COMPARISON: Chest Single View dated 04/14/2022; Chest Single View dated 01/24/2021; Chest Single View dated 05/28/2020; Chest Pa And Lat (2 Views) dated 10/11/2018 FINDINGS: Lines: Left IJ approach Port-A-Cath. Lungs: No evidence of edema or pneumonia. Chronic coarsening of the interstitium . Pleural: No significant pleural effusions or pneumothorax. Cardiac: The heart size is within normal limits. Mediastinum: Within normal limits. Bones: No acute fractures. Other: None IMPRESSION: No acute cardiopulmonary disease.
[2022-07-26 20:17] LABS: Hematocrit 40.2 % (36.0-45.0); Lymphocytes % 36.4 % (15.3-44.8); MCV 90.3 fL (80-100); MPV 7.4 fL (7.6-11.3); RBC Red Blood Cell Count 4.45 M/uL (3.86-4.86)
[2022-07-26 20:18] LABS: Protime INR 0.93
[2022-07-26 20:22] LABS: Albumin 3.7 g/dL (3.4-5.0); Bilirubin Total 0.3 mg/dL (0.2-1.0); Potassium 3.6 mmol/L (3.5-5.1); Protein, Total 7.5 g/dL (6.4-8.2)
[2022-07-26] MEDS ORDERED: MEPERIDINE HCL 25 MG/ML SYR ONE (20:53)
[2022-07-26] MEDS ORDERED: ONDANSETRON 4 MG/2 ML VIAL ONE (20:57)
[2022-07-26 21:01] LABS: SARS-COV-2 RT PCR NEGATIVE (NEGATIVE)
[2022-07-26] MEDS ORDERED: NA CHLORIDE 0.9% 500 ML ONE (21:23)
[2022-07-26 22:32] LABS: Urine Blood 1+ (Negative); Urine Glucose Negative (Negative); Urine Protein Negative (Negative); Urine Specific Gravity >=1.030 (1.005-1.030); Urine pH 5.5 (5.0-7.0)
--- NOTE | 2022-07-26 22:46 | ER ---
Nurse's Notes [facility] Name: Milan Weir Age: 82 yrs Sex: Female : 1940 Arrival Date: 07/26/2022 Time: 19:10 Bed 25 Private MD: Diagnosis: COPD/ Chronic obstructive pulmonary disease with (acute) exacerbation;Dyspnea, unspecified Presentation: 07/26 19:16 Chief complaint: EMS states: toned out for SOB x3days, body aches, sore throat, chest eh3 congestion, and nausea. Coronavirus screen: Vaccine status: Patient reports receiving the 2nd dose of the covid vaccine. Ebola Screen: No symptoms or risks identified at this time. 19:16 Method Of Arrival: EMS: [facility] 3 19:16 Initial Sepsis Screen: Does the patient meet any 2 criteria? RR > 20 per min. HR > 90 eh3 bpm. Does the patient have a suspected source of infection?. Risk Assessment: Do you want to hurt yourself or someone else? Patient reports no desire to harm self or others. Onset of symptoms was July 23, 2022. 19:16 Acuity: JARRETT 2 eh3 Triage Assessment: 19:16 General: Appears in no apparent distress. uncomfortable, Behavior is cooperative, eh3 appropriate for age, anxious. Pain: Complains of pain in chest. EENT: Reports nasal congestion sore throat. Neuro: Level of Consciousness is awake, alert, obeys commands, Oriented to person, place, time, situation. Cardiovascular: Capillary refill < 3 seconds Patient's skin is warm and dry. Rhythm is sinus tachycardia. Respiratory: Airway is patent Respiratory effort is even, labored, Respiratory pattern is regular, symmetrical, Breath sounds with rhonchi bilaterally. GI: Abdomen is round Reports nausea, vomiting. : No signs and/or symptoms were reported regarding the genitourinary system. Derm: No signs and/or symptoms reported regarding the dermatologic system. Musculoskeletal: No signs and/or symptoms reported regarding the musculoskeletal system. Circulation, motion, and sensation intact. Range of motion: intact in all extremities. Historical: - Allergies: 19:16 Morphine; eh3 19:16 tramadol; eh3 19:16 Tylenol-Codeine; eh3 - PMHx: 19:16 Alzheimers; COPD; Hernia; Pancreatitis; eh3 - PSHx: 19:16 Adenoid excision; breast implants; double masectomy; stomach surgery to prevent eh3 vomiting; Tonsillectomy; Total abdominal hysterectomy; - Immunization history:: Adult Immunizations unknown. - Social history:: Smoking status: unknown. - Family history:: not pertinent. - Hospitalizations: : No recent hospitalization is reported. Screenin:16 Abuse screen: Denies threats or abuse. Denies injuries from another. Nutritional eh3 screening: No deficits noted. Tuberculosis screening: No symptoms or risk factors identified. Fall Risk None identified. Assessment: 19:16 Reassessment: No changes from previously documented assessment. See triage assessment. eh3 20:00 Reassessment: Patient appears in no apparent distress at this time. Patient and/or eh3 family updated on plan of care and expected duration. Pain level reassessed. Patient states symptoms have improved. 20:39 Pain: Complains of pain in back Pain currently is 8 out of 10 on a pain scale. Quality eh3 of pain is described as chronic, exacerbated by uncomfortable hospital bed. 21:00 Reassessment: Patient appears in no apparent distress at this time. Patient and/or eh3 family updated on plan of care and expected duration. Pain level reassessed. Patient states symptoms have improved. 22:00 Reassessment: Patient appears in no apparent distress at this time. Patient and/or eh3 family updated on plan of care and expected duration. Pain level reassessed. 23:00 Reassessment: Patient appears in no apparent distress at this time. Patient and/or eh3 family updated on plan of care and expected duration. Pain level reassessed. 07/27 00:00 Reassessment: Patient appears in no apparent distress at this time. Patient and/or eh3 family updated on plan of care and expected duration. Pain level reassessed. Vital Signs: 07/26 19:16 Temp 98.8(O); eh3 19:16 BP 170 / 100; Pulse 101; Resp 26; Pulse Ox 96% on 2 lpm NC; eh3 19:30 BP 137 / 77; Pulse 102; Resp 24; Pulse Ox 100% on Nebulizer Mask; eh3 20:00 BP 119 / 61; Pulse 98; Resp 18; Pulse Ox 97% on 2 lpm NC; eh3 21:00 BP 119 / 57; Pulse 106; Resp 14; Pulse Ox 100% on 2 lpm NC; eh3 22:00 BP 129 / 63; Pulse 104; Resp 17; Pulse Ox 100% on 2 lpm NC; eh3 23:00 BP 109 / 61; Pulse 104; Resp 17; Pulse Ox 100% on 2 lpm NC; eh3 07/27 00:00 BP 105 / 51; Pulse 103; Resp 20; Pulse Ox 99% on 3 lpm NC; 3 ED Course: 07/26 19:10 Patient arrived in ED. rn 19:11 John Ramon MD is Attending Physician. rn 19:14 Jen Baltazar, SANDY is Primary Nurse. 3 19:16 Arm band placed on right wrist. eh3 19:16 Patient has correct armband on for positive identification. Placed in gown. Bed in low eh3 position. Call light in reach. Side rails up X2. media monitor on. Door closed. Noise minimized. Warm blanket given. 19:16 Inserted saline lock: 22 gauge in right antecubital area, using aseptic technique. 3 Blood collected. 19:39 Chest Single View XRAY In Process Unspecified. EDMS 19:55 Triage completed. eh3 22:46 Dagoberto Ramon MD is Hospitalizing Provider. rn 23:37 No provider procedures requiring assistance completed. 3 07/27 00:47 Patient admitted, IV remains in place. eh3 00:48 Primary Nurse role handed off by Jen Baltazar, SANDY 3 Administered Medications: 07/26 19:30 Drug: Xopenex (levalbuterol) (3) 1.25 mg Route: Inhalation; 3 20:08 Follow up: Response: Marked relief of symptoms 3 19:40 Drug: Magnesium Sulfate 1 grams Route: IVPB; Infused Over: 1 hrs; Site: right 3 antecubital; 23:58 Follow up: Response: No adverse reaction; IV Status: Completed infusion; IV Intake: eh3 100ml 20:00 Drug: NS 0.9% 500 ml Route: IV; Rate: bolus; Site: right antecubital; 3 23:59 Follow up: IV Status: Completed infusion; IV Intake: 500ml [facility] 21:03 Drug: Demerol (meperidine) 12.5 mg Route: IVP; Site: right antecubital; 3 22:16 Follow up: Response: Pain is decreased 3 21:03 Drug: Zofran (Ondansetron) 4 mg Route: IVP; Site: right antecubital; 3 22:16 Follow up: Response: No adverse reaction [facility] 07/27 00:45 Drug: Cefepime 1 grams {Note: transferred with pt to 4th floor.} Route: IVPB; Rate: 200 eh3 ml/hr; Infused Over: 30 mins; Site: right antecubital; 00:46 Follow up: IV Status: Infusion continued upon admission 3 00:46 Drug: NS 0.9% 1000 ml {Note: transferred with pt to 4th floor.} Route: IV; Rate: 1000 eh3 ml; Site: right antecubital; 00:47 Follow up: IV Status: Infusion continued upon admission 3 Medication: 07/26 23:37 VIS not applicable for this client. 3 Intake: 23:58 IV: 100ml; Total: 100ml. eh3 23:59 IV: 500ml; Total: 600ml. 3 Outcome: 22:46 Decision to Hospitalize by Provider. rn 07/27 00:47 Admitted to Med/surg accompanied by tech, via wheelchair, room 414, with oxygen, Report eh3 called to [place] Condition: stable Instructed on the need for admit. 00:47 Patient left the ED. 3 Signatures: Dispatcher [employer] John Landers MD MD rn Hall, Erin, RN RN 3 Corrections: (The following items were deleted from the chart) 07/26 19:56 19:16 PSHx: steroid injections three weeks ago; 3 3
--- NOTE | 2022-07-26 22:46 | EDPHYS ---
Physician Documentation [facility] Name: Milan Weir Age: 82 yrs Sex: Female : 1940 Arrival Date: 07/26/2022 Time: 19:10 Bed 25 Private MD: ED Physician John Ramon HPI: 07/26 19:27 This 82 yrs old Female presents to ER via Unassigned with complaints of sob, cough. rn 19:27 The patient has shortness of breath at rest, with light activity. Onset: The rn symptoms/episode began/occurred 2 day(s) ago. Duration: The symptoms are continuous. The patient's shortness of breath is aggravated by coughing, exertion, light activity. Associated signs and symptoms: Pertinent positives: productive cough, fever, Pertinent negatives: hemoptysis, loss of consciousness. Severity of symptoms: At their worst the symptoms were moderate in the emergency department the symptoms are unchanged. The patient has experienced similar episodes in the past. The patient has not recently seen a physician. Pt reports feeling sick for 2 days, productive cough and sob that is getting worse. Feels similar to when was diagnosed with pneumonia in past. + subjective fever/chills. + generalized weakness. . Historical: - Allergies: 19:16 Morphine; eh3 19:16 tramadol; eh3 19:16 Tylenol-Codeine; eh3 - PMHx: 19:16 Alzheimers; COPD; Hernia; Pancreatitis; eh3 - PSHx: 19:16 Adenoid excision; breast implants; double masectomy; stomach surgery to prevent eh3 vomiting; Tonsillectomy; Total abdominal hysterectomy; - Immunization history:: Adult Immunizations unknown. - Social history:: Smoking status: unknown. - Family history:: not pertinent. - Hospitalizations: : No recent hospitalization is reported. ROS: 19:27 Constitutional: + fever and chills Eyes: Negative for injury, pain, redness, and sport intern, Neck: Negative for injury, pain, and swelling, Cardiovascular: Negative for chest pain, palpitations, and edema, Respiratory: + cough and sob Abdomen/GI: Negative for abdominal pain, nausea, vomiting, diarrhea, and constipation, MS/Extremity: Negative for injury and deformity, Skin: Negative for injury, rash, and discoloration, Neuro: + generalized weakness Exam: 19:25 ECG was reviewed by the Attending Physician. rn 19:27 Constitutional: This is a well developed, well nourished patient who is awake, alert, rn mild tachypnea Head/Face: Normocephalic, atraumatic. Eyes: Mild erythema surrounding both eyes, no drainage ENT: dry MM, no stridor Cardiovascular: Tachycardic, regular Respiratory: + mild tachypnea, + wheezing bilaterally, no retractions. Abdomen/GI: Soft, non-tender Skin: Warm, dry MS/ Extremity: Pulses equal, no cyanosis. Neuro: Awake and alert, GCS 15 Vital Signs: 19:16 Temp 98.8(O); eh3 19:16 BP 170 / 100; Pulse 101; Resp 26; Pulse Ox 96% on 2 lpm NC; eh3 19:30 BP 137 / 77; Pulse 102; Resp 24; Pulse Ox 100% on Nebulizer Mask; eh3 20:00 BP 119 / 61; Pulse 98; Resp 18; Pulse Ox 97% on 2 lpm NC; 3 21:00 BP 119 / 57; Pulse 106; Resp 14; Pulse Ox 100% on 2 lpm NC; eh3 22:00 BP 129 / 63; Pulse 104; Resp 17; Pulse Ox 100% on 2 lpm NC; 3 23:00 BP 109 / 61; Pulse 104; Resp 17; Pulse Ox 100% on 2 lpm NC; 3 07/27 00:00 BP 105 / 51; Pulse 103; Resp 20; Pulse Ox 99% on 3 lpm NC; 3 MDM: 07/26 19:11 Patient medically screened. rn 22:44 Differential diagnosis: CHF exacerbation, Chronic Obstructive Pulmonary Disease rn Myocardial Infarction pneumonia, Pneumothorax pulmonary edema, reactive airway disease, Sepsis. Data reviewed: vital signs, nurses notes, lab test result(s), radiologic studies, plain films, and as a result, I will admit patient. Counseling: I had a detailed discussion with the patient and/or guardian regarding: the historical points, exam findings, and any diagnostic results supporting the discharge/admit diagnosis, lab results, radiology results, the need for further work-up and treatment in the hospital. ED course: No source of infection at this time, slightly elevated lactate, but no signs of sepsis, currently does not meet severe sepsis criteria due to lack of source of infection, abnormal vitals likely 2/2 to COPD exacerbation. . 23:51 ED course: Lactate increased, notified by lab, will give more fluids, and administer rn abx. Still no source of infection at this time.. 07/26 19:12 Order name: Blood Culture Adult (2) rn 07/26 19:12 Order name: CBC with Diff; Complete Time: 20:43 rn 07/26 19:12 Order name: CMP; Complete Time: 20:43 rn 07/26 19:12 Order name: Lactate w/ 2H reflex if indic.; Complete Time: 20:43 rn 07/26 19:12 Order name: Protime (+inr); Complete Time: 20:43 rn 07/26 19:12 Order name: Ptt, Activated; Complete Time: 20:43 rn 07/26 19:12 Order name: Urine Culture 07/26 19:12 Order name: Urine Microscopic Only; Complete Time: 23:17 rn 07/26 19:12 Order name: Chest Single View XRAY; Complete Time: 19:53 rn 07/26 19:12 Order name: COVID-19/FLU A+B; Complete Time: 21:10 rn 07/26 19:25 Order name: BNP; Complete Time: 20:43 rn 07/26 20:03 Order name: Glucose, Ancillary Testing; Complete Time: 20:15 EDNY 07/26 22:33 Order name: Urine Dipstick-Ancillary; Complete Time: 22:40 EDNY 07/26 23:51 Order name: Lactate Sepsis 2 HR Follow-up; Complete Time: 23:54 EDNY 07/26 19:12 Order name: EKG; Complete Time: 19:13 rn 07/26 19:12 Order name: Accucheck; Complete Time: 20:00 rn 07/26 19:12 Order name: Cardiac monitoring; Complete Time: 19:15 rn 07/26 19:12 Order name: EKG - Nurse/Tech; Complete Time: 19:31 rn 07/26 19:12 Order name: IV Saline Lock - Large Bore; Complete Time: 19:31 rn 07/26 19:12 Order name: Labs collected and sent; Complete Time: 20:00 rn 07/26 19:12 Order name: O2 Per Protocol; Complete Time: 19:15 rn 07/26 19:12 Order name: O2 Sat Monitoring; Complete Time: 19:15 rn 07/26 19:12 Order name: Urine Dipstick-Ancillary (obtain specimen); Complete Time: 22:27 rn 07/26 19:12 Order name: Vital Signs; Complete Time: 20:00 rn EC: Rate is 102 beats/min. Rhythm is regular. QRS [place] is Normal. NH interval is normal. rn QRS interval is normal. QT interval is normal. No Q waves. T waves are Flattened in leads V1, V2. No ST changes noted. Clinical impression: Sinus tachycardia. Interpreted by me. Reviewed by me. Administered Medications: 19:30 Drug: Xopenex (levalbuterol) (3) 1.25 mg Route: Inhalation; 3 20:08 Follow up: Response: Marked relief of symptoms 3 19:40 Drug: Magnesium Sulfate 1 grams Route: IVPB; Infused Over: 1 hrs; Site: right 3 antecubital; 23:58 Follow up: Response: No adverse reaction; IV Status: Completed infusion; IV Intake: eh3 100ml 20:00 Drug: NS 0.9% 500 ml Route: IV; Rate: bolus; Site: right antecubital; 3 23:59 Follow up: IV Status: Completed infusion; IV Intake: 500ml 3 21:03 Drug: Demerol (meperidine) 12.5 mg Route: IVP; Site: right antecubital; 3 22:16 Follow up: Response: Pain is decreased eh3 21:03 Drug: Zofran (Ondansetron) 4 mg Route: IVP; Site: right antecubital; 3 22:16 Follow up: Response: No adverse reaction [facility] 07/27 00:45 Drug: Cefepime 1 grams {Note: transferred with pt to 4th floor.} Route: IVPB; Rate: 200 eh3 ml/hr; Infused Over: 30 mins; Site: right antecubital; 00:46 Follow up: IV Status: Infusion continued upon admission 3 00:46 Drug: NS 0.9% 1000 ml {Note: transferred with pt to 4th floor.} Route: IV; Rate: 1000 eh3 ml; Site: right antecubital; 00:47 Follow up: IV Status: Infusion continued upon admission 3 Disposition Summary: 07/26/22 22:46 Hospitalization Ordered Hospitalization Status: Observation rn Provider: Dagoberto Ramon rn Location: Telemetry/MedSur (observation) rn Condition: Stable rn Problem: an acute exacerbation rn Symptoms: have improved rn Bed/Room Type: Standard rn Room Assignment: 414(07/27/22 00:06) [facility] Diagnosis - COPD/ Chronic obstructive pulmonary disease with (acute) exacerbation rn - Dyspnea, unspecified rn Forms: - Medication Reconciliation Form rn - SBAR form rn Signatures: Dispatcher [employer] EDJohn Bae MD MD rn Basinger, Emily, RN RN 1 Jen Baltazar RN RN 3 Violeta Cunha, PA-C PA-Jg [id number] Corrections: (The following items were deleted from the chart) 07/26 19:56 19:16 PSHx: steroid injections three weeks ago; 3 3 23:56 22:46 rn [facility] 07/27 00:06 07/26 23:56 [address] [place] [address]
[2022-07-26 23:00] LABS: Urine Mucus Slight /HPF (None Seen); Urine RBC <5 /HPF (None Seen)
[2022-07-26] MEDS ORDERED: NA CHLORIDE 0.9% 1,000 ML ONE (23:57)
--- NOTE | 2022-07-27 00:49 | P.HP ---
Certification for Inpatient Patient admitted to: Inpatient With expected LOS: <2 Midnights Patient will require the following post-hospital care: None Practitioner: I am a practitioner with admitting privileges, knowledge of patient current condition, hospital course, and medical plan of care. Services: Services provided to patient in accordance with Admission requirements found in Title 42 Section 412.3 of the Code of Federal Regulations <Violeta Cunha - Last Filed: 07/27/22 05:03> Patient History Date of Service: 07/27/22 Reason for admission: COPD Exacerbation History of Present Illness: Patient is an 82-year-old female with past medical history of COPD, Alzheimer's, cirrhosis, CKD who presented to the ED with complaints of FLS shortness of breath, body aches, sore throat, chest congestion, and nausea for 3 days. She was tachypneic, tachycardic, and hypertensive upon arrival to ED. Initial lactate 2.9. No leukocytosis nor other lab abnormalities. Covid/flu negative. Chest xray showed "No evidence of edema or pneumonia. Chronic coarsening of the interstitium." She was given breathing treatment, magnesium, 1/2 L fluid. Her lactate increased to 4.6. Additional liter fluids administered as well as 1 gram of cefepime. Patient improved, saturating 99% on 3L, resting comfortably. She is admitted for further management. Home medications list reviewed: Yes - Past Medical/Surgical History Diabetic: No -: COPD -: Alzheimer's disease -: pancreatitis -: liver cirrhosis -: kidney disease -: tonsilectomy -: appendectomy -: double mastectomy with reconstruction -: cholecystectomy Psychosocial/ Personal History: jail resident - Family History Mother Notes: ALZHEIMERS Brother -: GI disease Notes: internal bleeding - Social History Smoking Status: Former smoker Alcohol use: No CD- Drugs: No Caffeine use: Yes Place of Residence: Home <Violeta Cunha - Last Filed: 07/27/22 05:03> Date of Service: 07/27/22 <Brad Smith - Last Filed: 07/27/22 10:13> Allergies codeine Allergy (Verified 01/25/21 03:46) Nausea/Vomiting acetaminophen [From Tylenol] Adverse Reaction (Verified 01/25/21 03:46) Nausea/Vomiting tramadol Adverse Reaction (Verified 01/25/21 03:46) Nausea/Vomiting Home Medications: Venlafaxine HCl *Xr* [Effexor XR] 1 cap PO BEDTIME 10/08/18 Famotidine [Pepcid] 20 mg PO BID #60 tab 01/25/21 Promethazine Tab [Phenergan*] 25 mg PO Q12H PRN #10 tab 01/25/21 Review of Systems General: Weakness, Malaise Respiratory: Cough, Shortness of Breath Gastrointestinal: Nausea <AlphonseVioleta - Last Filed: 07/27/22 05:03> Physical Examination - Physical Exam General: Alert, In no apparent distress HEENT: Atraumatic, PERRLA, EOMI, Sclerae nonicteric Neck: Supple, 2+ carotid pulse no bruit, No LAD, Without JVD or thyroid abnormality Respiratory: Expiratory wheezes Cardiovascular: Regular rate/rhythm, Normal S1 S2 Gastrointestinal: Normal bowel sounds, No tenderness Musculoskeletal: No tenderness Integumentary: No rashes Neurological: Normal speech, Normal strength at 5/5 x4 extr, Normal tone, Normal affect - Studies Laboratory Data (last 24 hrs) 07/26/22 19:43: PT 10.2, INR 0.93, APTT 32.8 07/26/22 19:43: Sodium 140, Potassium 3.6, BUN 12, Creatinine 1.20, Glucose 149 H, Total Bilirubin 0.3, AST 15, ALT 19, Alkaline Phosphatase 96 07/26/22 19:43: WBC 8.30, Hgb 13.5, Hct 40.2, Plt Count 272 <Violeta Cunha - Last Filed: 07/27/22 05:03> - Studies Laboratory Data (last 24 hrs) 07/26/22 19:43: PT 10.2, INR 0.93, APTT 32.8 07/26/22 19:43: Sodium 140, Potassium 3.6, BUN 12, Creatinine 1.20, Glucose 149 H, Total Bilirubin 0.3, AST 15, ALT 19, Alkaline Phosphatase 96 07/26/22 19:43: WBC 8.30, Hgb 13.5, Hct 40.2, Plt Count 272 Microbiology Data (last 24 hrs): 07/26/22 21:29 Blood - Blood Anaerobic Blood Culture - Final <Brad Smith - Last Filed: 07/27/22 10:13> Assessment and Plan - Problems (Diagnosis) (1) COPD with acute exacerbation Current Visit: Yes Status: Acute (2) Lactic acidosis Current Visit: Yes Status: Acute (3) Alzheimers disease Current Visit: Yes Status: Chronic (4) Chronic kidney disease Current Visit: Yes Status: Acute Qualifiers: Chronic kidney disease stage: stage 3 (moderate) Chronic kidney disease stage 3 subtype: stage 3b (GFR 30-44) Qualified Code(s): N18.32 - Chronic kidney disease, stage 3b - Plan Initial lactate 2.9. Given 1.5 L fluid. 2 hour repeat 4.6. Additional 500 mL given to complete 30 ml/kg sepsis bolus. Additional lactate pending. Still no source of infection identified. Cefepime given in ED. Chest xray negative. Chest CT ordered. Blood and urine cultures obtained. For now, continue treatment for COPD exacerbation with scheduled breathing treatments, supplemental O2, IV steroids, and pulmonology consult. Monitor and replete electrolytes per protocol Reconcile and continue home medications Lovenox for VTE prophylaxis Full code Discharge Plan: Home Plan to discharge in: 48 Hours - Advance Directives Does patient have a Living Will: No Does patient have a Durable POA for Healthcare: Yes - Code Status/Comfort Care Code Status Assessed: Yes (Full) Critical Care: No Time Spent Managing Pts Care (In Minutes): 50 <Violeta Cunha - Last Filed: 07/27/22 05:03> Physician Review: Patient Assessed, Agree with Above Assessment and Plan Physician Review Additional Text: She is doing well this morning. She remains on 2 L nasal cannula. Currently no identified source of infection. Suspect type B lactic acidosis secondary to beta-agonist use. She appears well clinically, and does not appear septic or toxic. CT angiogram chest is pending. Suspect her non-anion gap metabolic acidosis to be secondary to Normal Saline. Will continue bronchodilators + steroids. Appreciate Pulmonology recommendations. Brad Smith M.D. <Brad Smith - Last Filed: 07/27/22 10:13>
[2022-07-27] MEDS ORDERED: ACETAMINOPHEN 325 MG TABLET PO PRN (00:50)
[2022-07-27] MEDS ORDERED: NA CHLORIDE 0.9% 1,000 ML IV SCH (00:50)
[2022-07-27] MEDS: METHYLPREDNISOLONE 40 MG INJ IV SCH ×3 (01:14→20:02)
[2022-07-27] MEDS: MELATONIN 5 MG TABLET PO PRN ×2 (01:45→20:02)
[2022-07-27 02:15] LABS: Absolute Lymphocytes (CBC) 0.6 K/uL (0.7-4.9); Hematocrit 38.1 % (36.0-45.0); Lymphocytes % 9.2 % (15.3-44.8); MCV 90.8 fL (80-100); MPV 7.4 fL (7.6-11.3)
[2022-07-27] MEDS ORDERED: NA CHLORIDE 0.9% 500 ML IV ONE (02:33)
[2022-07-27 02:39] VITALS: BMI 23.0
[2022-07-27 03:27] LABS: Magnesium 2.2 mg/dL (1.8-2.4); Potassium 3.8 mmol/L (3.5-5.1); Thyroid Stimulating Hormone 0.803 uIU/mL (0.360-3.740)
[2022-07-27] MEDS: ALBUTEROL 2.5 MG/3 ML NEB SOL NEB SCH ×5 (04:05→20:15)
[2022-07-27] MEDS: IPRATROPIUM BROM 0.5MG/2.5ML NEB SCH ×4 (04:05→20:15)
[2022-07-27] MEDS: ONDANSETRON 4 MG/2 ML VIAL IV PRN ×2 (05:00→13:12)
[2022-07-27 05:52] LABS: Urine Bacteria <20 /HPF (<20); Urine Bilirubin NEGATIVE (Negative); Urine Blood Trace (Negative); Urine Clarity Clear (Clear); Urine Color Colorless (Yellow); Urine Glucose 2+ (Negative); Urine Mucus Slight /HPF (None Seen); Urine Protein NEGATIVE (Negative); Urine Urobilinogen Normal (Normal)
[2022-07-27] MEDS ORDERED: Ringers Lactate 500 ML IV ONE (07:22)
[2022-07-27] MEDS: ENOXAPARIN 40 MG/0.4 ML SQ SCH (08:30)
[2022-07-27] MEDS: POTASS/SODIUM PHOSPHATE 1 PKT POWD.PACK PO SCH ×2 (08:30→10:49)
[2022-07-27] MEDS ORDERED: POTASSIUM CL SA 10 MEQ TAB PO ONE (09:00)
[2022-07-27] MEDS ORDERED: BACLOFEN 10 MG TAB PO ONE (10:00)
[2022-07-27] MEDS ORDERED: MORPHINE 2 MG/ML SYR IV ONE ×2 (13:00→17:59)
--- NOTE | 2022-07-27 15:22 | RAD REPORT ---
EXAM DESCRIPTION: CT - Chest For Pe Angio - 07/27/2022 2:58 pm CLINICAL HISTORY: Hypoxia COMPARISON: 2018 TECHNIQUE: Dynamically enhanced axial 3 mm thick images of the chest were obtained during administra tion of <100> mL Isovue 370 IV contrast. Coronal and oblique reconstruction images were generated and reviewed. Exam utilizes a protocol for optimal evaluation of pulmonary arterial tree. Maximum intensity projections 3D imaging was utilized All CT scans are performed using dose optimization technique as appropriate and may include automated exposure control or mA/KV adjustment according to patient size. FINDINGS: A pulmonary embolus is not seen. A thoracic aortic aneurysm is not noted. A pleural effusion is not seen. A pericardial effusion is not seen. A lung consolidation is not present. Centrilobular emphysema IMPRESSION: Negative for a pulmonary embolism.
[2022-07-27] MEDS ORDERED: PNEUMOCOCCAL VACCINE 0.5 ML IMVAC ONE (17:00)
[2022-07-27] MEDS ORDERED: INFLUENZA VACCINE (for 6+ mo) 0.5 ML DOSE IMVAC ONE (17:00)
[2022-07-28] MEDS: IPRATROPIUM BROM 0.5MG/2.5ML NEB SCH ×3 (01:20→14:00)
[2022-07-28 01:59] LABS: Phosphorus 3.7 mg/dL (2.5-4.9); Potassium 4.7 mmol/L (3.5-5.1)
[2022-07-28] MEDS ORDERED: MORPHINE 2 MG/ML SYR IV PRN (08:10)
[2022-07-28] MEDS: METHYLPREDNISOLONE 40 MG INJ IV SCH (08:48)
[2022-07-28] MEDS: ONDANSETRON 4 MG/2 ML VIAL IV PRN (08:48)
[2022-07-28] MEDS: ENOXAPARIN 40 MG/0.4 ML SQ SCH (08:48)
--- NOTE | 2022-07-28 10:10 | P.CNS ---
Date of Consult: 07/28/22 Reason for Consult: COPD exacerbation Chief Complaint: COPD Exacerbation History of Present Illness: Patient is 82 years of age multiple medical problems including COPD does not have a primary care doctor sees a pain doctor admitted with worsening dyspnea sore throat cough congestion for the past 3 days she was tachypneic tachycardic and hypertensive on arrival at home although she has COPD not on any home oxygen feeling a little better since arrival/patient is not taking any bronchodilators at home quit smoking a long time ago Allergies codeine Allergy (Verified 01/25/21 03:46) Nausea/Vomiting acetaminophen [From Tylenol] Adverse Reaction (Verified 01/25/21 03:46) Nausea/Vomiting tramadol Adverse Reaction (Verified 01/25/21 03:46) Nausea/Vomiting Home Medications: Promethazine Tab [Phenergan*] 25 mg PO Q12H PRN #10 tab 01/25/21 Melatonin 1 tab PO BEDTIME 07/27/22 Meperidine HCl [Demerol*] 25 mg PO PRN PRN 07/27/22 Omeprazole 1 cap PO DAILY 07/27/22 - Past Medical/Surgical History Diabetic: No -: COPD -: Alzheimer's disease -: pancreatitis -: liver cirrhosis -: kidney disease -: bladder -: tonsilectomy -: appendectomy -: double mastectomy with reconstruction -: cholecystectomy -: gall bladder removed 2002 -: abdominal surgery Psychosocial/ Personal History: jail resident - Family History Mother Notes: ALZHEIMERS Brother Medical History: GI disease Notes: internal bleeding - Social History Smoking Status: Unknown if ever smoked Alcohol use: No CD- Drugs: No Caffeine use: Yes Place of Residence: Home Review of Systems 10-point ROS is otherwise unremarkable General: Weakness Respiratory: Shortness of Breath Physical Examination Temp Pulse Resp BP Pulse Ox 98.1 F 94 H 19 142/62 H 97 07/28/22 08:00 07/28/22 08:00 07/28/22 08:48 07/28/22 08:00 07/28/22 08:48 General: Alert, In no apparent distress, Oriented x3 Respiratory: Clear to auscultation bilaterally, Diminished Cardiovascular: No edema, Regular rate/rhythm, Normal S1 S2 Gastrointestinal: Normal bowel sounds, Soft and benign Musculoskeletal: No clubbing, No swelling Integumentary: No rashes, No breakdown - Problems (1) COPD (chronic obstructive pulmonary disease) Onset Date: 10/08/18 Current Visit: No Status: Acute Plan: Patient is 82 years of age admitted with worsening dyspnea masturbation of COPD evidence of thromboembolism or pneumonia on CT scan reviewed chemistries also reviewed CBC is normal signs are also stable/patient is doing better plan for discharge on prednisone 20 twice daily for a week then 10 mg once a day in addition to an Advair and also will need a nebulizer at home follow-up with me in 2 weeks she does see a pain doctor Qualifiers: COPD type: unspecified COPD Qualified Code(s): J44.9 - Chronic obstructive pulmonary disease, unspecified
[2022-07-28 12:13] VITALS: BP 150/65; TEMP 97.3
--- NOTE | 2022-07-28 14:37 | P.DS ---
Admission Date: 07/27/22 Discharge Date: 07/28/22 Disposition: AMA-LEFT AGAINST MEDICAL ADVIC Discharge Condition: FAIR Reason for Admission: COPD Exacerbation Consultations: 1. Pulmonary Medicine Hospital Course: DIAGNOSES: # Acute Chronic Obstructive Pulmonary Disease Exacerbation # Suspect Type B Lactic Acidosis secondary to Bronchodilator Use # Chronic Pain Syndrome # Alzheimer's Disease # Liver Cirrhosis HOSPITAL COURSE: Ms. Milan Weir is an 82 year old female with a past medical history significant for chronic obstructive pulmonary disease, chronic pain syndrome, Alzheimer's disease, and liver cirrhosis who was admitted to the [facility] on 07/27/2022 for shortness of breath. She was admitted to the Medicine service. Upon further evaluation, she was found to have an acute COPD exacerbation. Her chest x-ray revealed, "no acute cardiopulmonary disease." A CT chest angiogram revealed, "negative for a pulmonary embolism." Pulmonary Medicine was consulted and she was evaluated by Dr. Pino. She was treated with bronchodilators and steroids and was clinically improving. We were planning to monitor her for an additional day and possibly discharge tomorrow, which she initially agreed to on morning rounds. This afternoon, I received a call from her beside RN, Mónica, stating that she would like more frequent doses of morphine. I requested a little time to go evaluate her; however, by the time I made it to the room, Ms. Weir had already left the medical floor. I went down to the lobby with insulation cupola charger, Rico, to find Ms. Weir waiting for a ride at the front of the hospital. We did not feel comfortable with her medical decision making capacity given her Alzheimer's dementia. Her son, Mr. Garo Austin, arrived at the hospital and I reviewed her hospital course with him. I explained the risks of premature discharge including, but not limited to, worsening hypoxia and . He verbalized that he is going to proceed with whatever she wishes. I explained that she is leaving AGAINST MEDICAL ADVICE and he verbalized understanding. I advised that should she worsen or change her mind, to please bring her back to the Emergency Department. We have offered the phone number to our hospital. I have given her a prescription for prednisone and advised that she follow-up with her PCP and with Pulmonary Medicine (Dr. Pino). All questions were answered to the best of my ability. Vital Signs/Physical Exam: Temp Pulse Resp BP Pulse Ox 97.3 F 95 H 20 150/65 H 99 07/28/22 12:00 07/28/22 12:00 07/28/22 12:00 07/28/22 12:00 07/28/22 12:00 General: Alert, In no apparent distress, Oriented x3 HEENT: Atraumatic, Mucous membr. moist/pink, EOMI, Sclerae nonicteric Neck: JVD not distended Respiratory: Diminished, Expiratory wheezes (end-expiratory) Cardiovascular: No edema, Regular rate/rhythm, Normal S1 S2, No gallops, No rubs, No murmurs Gastrointestinal: Normal bowel sounds, Soft and benign, Non-distended, No tenderness, No rebound, No guarding Musculoskeletal: No clubbing Integumentary: No rashes Neurological: Normal speech, Cranial nerves 3-12 intact, Normal affect Laboratory Data at Discharge: WBC 6.10 K/uL (4.3-10.9) 07/27/22 02:01 Hgb 12.6 g/dL (12.0-15.0) 07/27/22 02:01 Hct 38.1 % (36.0-45.0) 07/27/22 02:01 Plt Count 240 K/uL (152-406) 07/27/22 02:01 PT 10.2 SECONDS (9.5-12.5) 07/26/22 19:43 INR 0.93 07/26/22 19:43 APTT 32.8 SECONDS (24.3-36.9) 07/26/22 19:43 Sodium 141 mmol/L (136-145) 07/28/22 01:19 Potassium 4.7 mmol/L (3.5-5.1) D 07/28/22 01:19 BUN 13 mg/dL (7-18) 07/28/22 01:19 Creatinine 1.08 mg/dL (0.55-1.3) 07/28/22 01:19 Glucose 163 mg/dL (74-106) H 07/28/22 01:19 Phosphorus 3.7 mg/dL (2.5-4.9) 07/28/22 01:19 Magnesium 2.2 mg/dL (1.8-2.4) 07/27/22 02:01 Total Bilirubin 0.3 mg/dL (0.2-1.0) 07/26/22 19:43 AST 15 U/L (15-37) 07/26/22 19:43 ALT 19 U/L (12-78) 07/26/22 19:43 Alkaline Phosphatase 96 U/L (45-117) 07/26/22 19:43 Triglycerides 112 mg/dL (<150) 07/27/22 02:01 Cholesterol 183 mg/dL (<200) 07/27/22 02:01 HDL Cholesterol 40 mg/dL (40-60) 07/27/22 02:01 Cholesterol/HDL Ratio 4.58 07/27/22 02:01 Home Medications: Promethazine Tab [Phenergan*] 25 mg PO Q12H PRN #10 tab 01/25/21 Melatonin 1 tab PO BEDTIME 07/27/22 Meperidine HCl [Demerol*] 25 mg PO PRN PRN 07/27/22 Omeprazole 1 cap PO DAILY 07/27/22 predniSONE [Prednisone*] 20 mg PO BID 5 Days #10 tab 07/28/22 New Medications: predniSONE [Prednisone*] 20 mg PO BID 5 Days #10 tab Physician Discharge Instructions: 1. Please call and schedule a follow-up appointment with your PCP in 3-5 days 2. Please call and schedule a follow-up appointment with Pulmonary Medicine (Dr. Pino) in 3-5 days Diet: AHA Activity: Fall precautions Followup: Burak Pino MD [ACTIVE - CAN ADMIT] - Time spent managing pt's care (in minutes): 40
[2022-07-28 15:26] VITALS: O2SAT 92
--- NOTE | 2022-07-28 16:33 | EKG ---
Test Date: 2022-07-26 Test Time: 19:21:13 Fork Lift Technician: IGGY MEASUREMENT RESULTS: Intervals: Rate: 102 MO: 138 QRSD: 66 QT: 350 QTc: 456 [place]: P: 72 MO: 138 QRS: 50 T: 60 INTERPRETIVE STATEMENTS: Sinus tachycardia Nonspecific ST abnormality Abnormal ECG Compared to ECG 04/14/2022 16:59:51 ST (T wave) deviation now present Sinus rhythm no longer present T-wave abnormality no longer present Electronically Signed On 07-28-22 16:32:56 ZINC PLATER by Kiran Catherine
[2022-07-28] MEDS ORDERED: predniSONE 20 MG TAB PO SCH (21:00)
== END 2022-07-28 14:30 | disposition left against medical advice (07) | DRG 191 ==
LOC: ER 18:47 → ERHOLD 23:16 → 4TH 07-27 00:11 → OBSVTOIN 07-27 19:54
PROVIDERS: ADMIT Internal Medicine; ATTEND Internal Medicine
DX: J44.1 Chronic obstructive pulmonary disease with (acute) exacerbation (principal); E87.20 Acidosis, unspecified; G30.9 Alzheimer's disease, unspecified; F02.80 Dementia in other diseases classified elsewhere, unspecified severity, without behavioral disturbance, psychotic disturbance, mood disturbance, and anxiety; N18.32 Chronic kidney disease, stage 3b; G89.4 Chronic pain syndrome; K74.60 Unspecified cirrhosis of liver; Z88.5 Allergy status to narcotic agent; Z90.13 Acquired absence of bilateral breasts and nipples; Z53.29 Procedure and treatment not carried out because of patient's decision for other reasons; Z79.52 Long term (current) use of systemic steroids; Z90.710 Acquired absence of both cervix and uterus; Z87.891 Personal history of nicotine dependence; Z79.899 Other long term (current) drug therapy; Z20.822 Contact with and (suspected) exposure to COVID-19
CPT/HCPCS: 0240U; 36415; 71045; 71275; 80048; 80053; 80061; 81001; 81003; 81015; 82947; 83605; 83735; 83880; 84100; 84443; 85025; 85610; 85730; 87040; 87086; 87088; 93005; 94010; 94640; 94760; 96365; 96366; 96375; 97116; 97161; 99285; G0378; J1650; J2175; J2270; J2405; J2920; J3475; J7030; J7040; J7120; J7613; J7614; J7644; Q9967

== ENCOUNTER 2023-03-30 07:29 | Emergency (ER) | payer OTHER, BC ==
--- OUTSIDE RECORDS SUMMARY | 2023-03-30 07:33 | XMS REPORT | Continuity of Care Document ---
:1940 Author Organization [facility] t Address [address] [facility] [address] [place] [address] Care Team Providers Name Role Phone PCP, PATIENT DOES NOT HAVE A Primary Care Physician Unavaila NIECY Johnson Attending Clinician Unavailable Niecy Ball DO Attending Clinician RADIOLOGY Attending Clinician Unavailable Radiology Attending Clinician Unavailable MIKHAIL HURTADO Attending Clinician Unavailable NIECY BALL Admitting Clinician Unavailable MEKA ORDAZ Admitting Clinician Unavailable MIKHAIL HURTADO Admitting Clinician Unavailable Payers Payer Name Policy Type Policy Number Effective Date Expiration Date S [facility] [place] PART A \T\ [id number] 2004 B 00:00:00 BC TRADITIONAL [id number] 2017 00:00:00 Problems Condition Condition Condition Status Onset Resolution Last Treating Co mments Source Name Details Category Date Date Treatment Clinician Date No known No known Disease Unive rs active active ity of problems problems [facility] Allergies, Adverse Reactions, Alerts Allergy Allergy Status Severity Reaction(s) Onset Inactive Treating Comm ents Source Name Type Date Date Clinician CODEINE DRUG Active N/V Univers INGREDI 1-16 ity of 00:00: [address] Codeine Propensi Active Nausea Univers ty to and/or 16 ity of adverse Vomiting 00:00: [place] reaction [address] [place] [address] s [place] NO KNOWN Drug Active Univers ALLERGIE Class ity of S [facility] Social History Social Habit Start Date Stop Date Quantity Comments Source Exposure to 2022-09-08 2022-09-18 Not sure [facility] SARS-CoV-2 (event) 00:00:00 09:01:00 Medica l Branch Sex Assigned At [birth year] [facility] [place] 00:[facility]:00 00:00:00 Medical Branch Smoking Status Start Date Stop Date Source Tobacco smoking consumption [facility] unknown Branch Medications Ordered Filled Start Stop Current Ordering Indication Dosage Frequency Signature Comments Components Source Medication Medication Date Date Medication? Clinician (SIG) Name Name No known No No known Unive rs medications -16 medication it y of 09:05: s [place] 08 [facility] Branch gadoteridol 2019-09 2020- No .2mL/kg 0.2 mL/kg, Univers (PROHANCE-1 2-10 12-10 Intravenou i ty of 5 mL) 21:45: 22:15 s, ONCE, 1 [place] injection 00 :00 dose, Leni Medic al 0.2 mL/kg 08/12/20 Branch at 1545, Routine Vital Signs Vital Name Observation Time Observation Value Comments Source Heart rate 2022-09-18 16:44:00 62 /min [facility] Respiratory rate 2022-09-18 16:44:00 20 /min [facility] Oxygen saturation in 2022-09-18 16:44:00 99 /min [facility] Arterial blood by [facility] Pulse oximetry Branch Systolic blood 2022-09-18 16:00:18 153 mm[Hg] [facility] Diastolic blood 2022-09-18 16:00:18 86 mm[Hg] [facility] Body temperature 2022-09-18 15:03:00 36.89 Keesha [facility] Body height 2022-09-18 15:03:00 160 cm [facility] Body weight 2022-09-18 15:03:00 53.524 kg [facility] BMI 2022-09-18 15:03:00 20.90 kg/m2 [facility] Procedures Procedure Date / Time Performed Performing Clinician Nas e CT TRAUMA HEAD WO 2022-09-18 15:55:32 Niecy Ball [facility] CONTRAST [facility] CT TRAUMA CERVICAL 2022-09-18 15:55:32 Niecy [facility] SPINE WO CONTRAST Medical Branch XR SHOULDER <2 VW LEFT 2022-09-18 15:40:40 Niecy Ball [facility] [place] [facility] NOTICE OF PRIVACY 2022-09-18 14:59:10 Doctor Unassigned, No [facility] Name Medical Branch CONSENT/REFUSAL FOR 2022-09-18 14:58:45 Doctor Unassigned, No [facility] [place] DIAGNOSIS AND Name Medical Branch TREATMENT MR ABDOMEN W WO 2020-08-12 22:16:07 Requisition, Paper [facility] CONTRAST MRCP Medical Branch NOTICE OF PRIVACY 2020-08-12 21:10:37 Doctor Unassigned, No [facility] Name Medical Branch CONSENT/REFUSAL FOR 2020-08-12 21:10:07 Doctor Unassigned, No [facility] [place] DIAGNOSIS AND Name Medical Branch TREATMENT ASSIGNMENT OF BENEFITS 2020-08-12 21:09:46 Doctor Unassigned, No [facility] Name Medical Branch Encounters Start End Encounter Admission Attending Care Care Encounter Source Date/Time Date/Time Type Type Clinicians Facility Department ID 2022-09-18 2022-09-18 Emergency X [facility] ERT [id number] Univers 09:05:00 10:46:00 NIECY raymond [facility] 2022-09-18 2022-09-18 Emergency [facility] [id number] Univers 09:05:00 10:46:00 Niecy BOWER [id number] ity [facility] [id number] [facility] [id number] [facility] 084 Branch 2020-08-12 2020-08-12 Outpatient R RADIOLOGY [facility] [id number] Univers 15:11:31 23:59:00 ity of [facility] 2020-08-12 2020-08-12 Hospital Radiology [facility] [id number] Univers 15:00:00 23:59:00 Encounter [place] [id number] ity of [place] [id number] [facility] [id number] [facility] 804 Branch 2020-08-12 2020-08-12 Hospital Radiology [facility] [id number] 15:00:00 23:59:00 Encounter [place] [id number] [place] [id number] [place] [id number] Results Test Test Test Results Result Source Description Time Comments Comments MR ABDOMEN W WO 2020-08- HISTORY: Chronic Uni versity of CONTRAST MRCP [address] [facility] 22:28:06 TECHNIQUE: MRI studies Br anch [...] (test code = BUN) 16.0 mg/dl 6.0-17.0 [facility], [id number] 09:33:00 Test Item Value Reference Range Interpretation Comments Creatinine (test 1.0 mg/dl 0.4-1.2 code = CREA) EGFR if >60 Afghan (test code mL/min/1.73m\ = EGFRAA) S\2 EGFR if Non- 57 Estimate d Glomerular Afghan (test code mL/min/1.73m\ Filtrat ion Rate (eGFR) [...] management of c hronic kidney failure. [facility]
[2023-03-30] MEDS ORDERED: FLUORESCEIN SODIUM 1 MG/WRAP ONE (07:47)
[2023-03-30] MEDS ORDERED: TETRACAINE HCL 0.5% 4ML OPTH ONE (07:48)
[2023-03-30] MEDS ORDERED: ONDANSETRON 4 MG (ODT) TAB ONE (07:48)
--- NOTE | 2023-03-30 07:59 | ER ---
Nurse's Notes [facility] Name: Milan Weir Age: 82 yrs Sex: Female : 1940 Arrival Date: 03/30/2023 Time: 07:29 Bed 14 Private MD: Diagnosis: Injury of conjunctiva and corneal abrasion without foreign body;Ocular pain, left eye Presentation: 03/30 07:32 Chief complaint: EMS states: Pt states that she was working in garden yesterday and got ph milkweed sap in her L eye, reports pain and irritation since, also c/o N/V since last night. Ebola Screen: No symptoms or risks identified at this time. Mechanism of Injury: milkweed sap in eye. Initial Sepsis Screen: Does the patient meet any 2 criteria? No. Patient's initial sepsis screen is negative. Does the patient have a suspected source of infection? No. Patient's initial sepsis screen is negative. Risk Assessment: Do you want to hurt yourself or someone else? Patient reports no desire to harm self or others. Onset of symptoms was March 30, 2023. 07:32 Method Of Arrival: EMS: [facility] ph 07:32 Acuity: JARRETT 4 ph 08:04 The patient reports a positive loss of vision. The patient's loss of vision began me1 gradually 1 day ago. Triage Assessment: 07:35 General: Appears in no apparent distress. uncomfortable, Behavior is calm, cooperative. ph Pain: Complains of pain in left eye. EENT: Eyes are tearing on left eye Lid(s) swelling to L eye. Neuro: Level of Consciousness is awake, alert, obeys commands, Oriented to person, place, time, situation. Cardiovascular: Capillary refill < 3 seconds in bilateral fingers Patient's skin is warm and dry. GI: Reports nausea, vomiting. Historical: - Allergies: 07:34 Morphine; ph 07:34 tramadol; ph 07:34 Tylenol-Codeine; ph - PMHx: 07:34 Alzheimers; COPD; Hernia; Pancreatitis; ph - PSHx: 07:34 Adenoid excision; breast implants; double masectomy; stomach surgery to prevent ph vomiting; Tonsillectomy; Total abdominal hysterectomy; - Immunization history:: Adult Immunizations unknown. - Social history:: Smoking status: Patient/guardian denies using tobacco, but has a distant history of tobacco abuse. Screenin:58 [facility] ED Fall Risk Assessment (Adult) Score/Fall Risk Level 0 - 2 = Low Risk me1 Oriented to surroundings, Maintained a safe environment, Provided non-skid footwear, Hourly rounding (assess needs \T\ fall precautionary measures) done. Abuse screen: Denies threats or abuse. Nutritional screening: No deficits noted. Tuberculosis screening: No symptoms or risk factors identified. Assessment: 07:58 General: Appears uncomfortable, well nourished, Behavior is calm, cooperative, me1 appropriate for age. Pain: Complains of pain in left eye Pain currently is 10 out of 10 on a pain scale. Quality of pain is described as burning, Pain began 1 day ago. Neuro: Level of Consciousness is awake, alert, Oriented to person, place, time, situation. Cardiovascular: Capillary refill < 3 seconds is brisk Patient's skin is warm and dry. Respiratory: Respiratory effort is even, unlabored, Respiratory pattern is regular, symmetrical. GI: Reports nausea. EENT: Eyes are tearing on left upper eyelid and left lower eyelid edema, redness and tearing from left eye. . Sclera/Cornea are cloudy in left upper eyelid, outer aspect of conjuctiva of left eye, inner aspect of conjunctiva of left eye and left lower eyelid are reddened in left upper eyelid, outer aspect of conjuctiva of left eye, inner aspect of conjunctiva of left eye and left lower eyelid. 08:05 Reassessment: Verbal order rec'd for phenergan 12.5mg Im once. me1 Vital Signs: 07:32 BP 159 / 95; Pulse 94; Resp 20; Temp 97.7; Pulse Ox 98% on R/A; Weight 57.15 kg; Height ph 5 ft. 4 in. ; Pain 10/10; 07:32 Body Mass Index 21.63 (57.15 kg, 162.56 cm) ph 07:32 Pain Scale: Adult ph ED Course: 07:31 Patient arrived in ED. ph 07:32 Sae Hamilton DO is Attending Physician. ms3 07:34 Triage completed. ph 07:36 Arm band placed on Patient placed in an exam room, on a stretcher, on pulse oximetry. ph 07:58 Sheridan Keenan, RN is Primary Nurse. me1 07:58 Patient has correct armband on for positive identification. Bed in low position. Call me1 light in reach. Side rails up X2. Provided Education on: POC, verbalized understanding. . 07:58 Assist provider with eye exam of left eye. Performed by Sae Hamilton DO Patient me1 tolerated well. 08:10 Michael Song MD is Referral Physician. ms3 Administered Medications: 07:47 Drug: Tetracaine Ophthalmic Drops 0.5 % 1 drops Route: Ophthalmic; Site: left eye; ph 08:12 Follow up: Response: No adverse reaction; Marked relief of symptoms me1 07:47 Drug: Fluorescein Ophthalmic Strip 1 strip Route: Ophthalmic; Site: left eye; ph 08:13 Follow up: Response: No adverse reaction me1 07:47 Drug: Ondansetron PO 4 mg Route: PO; ph 08:12 Follow up: Response: No adverse reaction; No change in condition me1 08:06 Drug: Promethazine IM 12.5 mg Route: IM; Site: right gluteus; me1 08:13 Follow up: Response: No adverse reaction; Marked relief of symptoms; Nausea is decreasedme1 Medication: 07:58 VIS not applicable for this client. me1 Outcome: 07:59 Discharge ordered by . ms3 08:17 Patient left the ED. me1 Signatures: Annie Baltazar, RN RN Sae Hamilton DO DO ms3 Sheridan Keenan, SANDY RN me1
--- NOTE | 2023-03-30 07:59 | EDPHYS ---
Physician Documentation [facility] Name: Milan Weir Age: 82 yrs Sex: Female : 1940 Arrival Date: 03/30/2023 Time: 07:29 Bed 14 Private MD: ED Physician Sae Hamilton HPI: 03/30 08:05 This 82 yrs old Female presents to ER via EMS with complaints of Eye Pain. ms3 08:05 82-year-old female with past medical history of Alzheimer's, COPD, hernia, pancreatitis ms3 presents for milk weed sap in her left eye yesterday after trying to remove a foreign body in her eye. Patient states she has flushed the eye with copious amounts of water. Patient states her pain is a 10/10. Patient denies alleviating or inciting factors.. Historical: - Allergies: 07:34 Morphine; ph 07:34 tramadol; ph 07:34 Tylenol-Codeine; ph - PMHx: 07:34 Alzheimers; COPD; Hernia; Pancreatitis; ph - PSHx: 07:34 Adenoid excision; breast implants; double masectomy; stomach surgery to prevent ph vomiting; Tonsillectomy; Total abdominal hysterectomy; - Immunization history:: Adult Immunizations unknown. - Social history:: Smoking status: Patient/guardian denies using tobacco, but has a distant history of tobacco abuse. ROS: 08:05 Constitutional: Negative for fever, and chills. ms3 08:05 Cardiovascular: Negative for chest pain, and palpitations. Respiratory: Negative for shortness of breath, cough, wheezing, and pleuritic chest pain, MS/Extremity: Negative for injury and deformity, Skin: Negative for injury, rash, and discoloration. 08:05 Eyes: Positive for pain. 08:05 All other systems are negative. 08:10 Abdomen/GI: Positive for nausea. ms3 Exam: 08:05 Constitutional: This is a well developed, well nourished patient who is awake, alert, ms3 and in no acute distress. Head/Face: Normocephalic, atraumatic. 08:05 Eyes: Periorbital structures: erythema, that is mild, on the left lower eyelid, Pupils: equal, round, and reactive to light and accomodation, Extraocular movements: no acute changes, Conjunctiva: injected, in the left eye, Corneas: abrasion, that is moderate sized, a fluorescein strip employed to appreciate the findings, 6 o'clock and 12 o'clock. 08:10 Chest/axilla: Normal chest wall appearance and motion. Nontender with no deformity. ms3 Cardiovascular: Regular rate and rhythm with a normal S1 and S2. No gallops, murmurs, or rubs. Normal PMI, no JVD. No pulse deficits. Respiratory: Lungs have equal breath sounds bilaterally, clear to auscultation and percussion. No rales, rhonchi or wheezes noted. No increased work of breathing, no retractions or nasal flaring. Abdomen/GI: Soft, non-tender, with normal bowel sounds. No distension or tympany. No guarding or rebound. No evidence of tenderness throughout. Skin: Warm, dry with normal turgor. Normal color with no rashes, no lesions, and no evidence of cellulitis. MS/ Extremity: Pulses equal, no cyanosis. Neurovascular intact. Full, normal range of motion. Vital Signs: 07:32 BP 159 / 95; Pulse 94; Resp 20; Temp 97.7; Pulse Ox 98% on R/A; Weight 57.15 kg; Height ph 5 ft. 4 in. ; Pain 10/10; 07:32 Body Mass Index 21.63 (57.15 kg, 162.56 cm) ph 07:32 Pain Scale: Adult ph MDM: 07:32 Patient medically screened. ms3 08:10 Differential diagnosis: Corneal abrasion of left eye. Chemical conjunctivitis in left ms3 eye. Data reviewed: vital signs, nurses notes, and as a result, I will discharge patient. I considered the following discharge prescriptions or medication management in the emergency department Medications were administered in the Emergency Department. See MAR. Historians other than the Patient: EMS: [place]. Counseling: I had a detailed discussion with the patient and/or guardian regarding: the historical points, exam findings, and any diagnostic results supporting the discharge/admit diagnosis, the need for outpatient follow up, to return to the emergency department if symptoms worsen or persist or if there are any questions or concerns that arise at home. ED course: Patient with nausea while in the emergency department. Patient states she has had nausea since she was a kid. Patient states Zofran does not work for her and Phenergan does. On exam patient's abdomen is benign. Patient is alert, in no apparent distress, nontoxic appearing. Patient to follow-up with Dr. Song in 1 to 2 days for reevaluation. Patient given prescription for erythromycin eye ointment for corneal abrasions. Return precautions discussed include worsening symptoms, or any other concerns.. Administered Medications: 07:47 Drug: Tetracaine Ophthalmic Drops 0.5 % 1 drops Route: Ophthalmic; Site: left eye; ph 08:12 Follow up: Response: No adverse reaction; Marked relief of symptoms me1 07:47 Drug: Fluorescein Ophthalmic Strip 1 strip Route: Ophthalmic; Site: left eye; ph 08:13 Follow up: Response: No adverse reaction me1 07:47 Drug: Ondansetron PO 4 mg Route: PO; ph 08:12 Follow up: Response: No adverse reaction; No change in condition me1 08:06 Drug: Promethazine IM 12.5 mg Route: IM; Site: right gluteus; me1 08:13 Follow up: Response: No adverse reaction; Marked relief of symptoms; Nausea is decreasedme1 Disposition Summary: 03/30/23 07:59 Discharge Ordered Location: Home ms3 Condition: Stable ms3 Diagnosis - Injury of conjunctiva and corneal abrasion without foreign body ms3 - Ocular pain, left eye ms3 Followup: ms3 - With: Private Physician - When: 2 - 3 days - Reason: Recheck today's complaints Followup: ms3 - With: Michael Song MD - When: 1 - 2 days - Reason: Recheck today's complaints Discharge Instructions: - Discharge Summary Sheet ms3 - Corneal Abrasion, [id number] ms3 Forms: - Medication Reconciliation Form ms3 - Thank You Letter ms3 - Antibiotic Education ms3 - Prescription Opioid Use ms3 - Patient Portal Instructions ms3 Prescriptions: - Erythromycin 5 mg/gram (0.5 %) Ophthalmic Ointment - apply 1 centimeter by OPHTHALMIC route 2-3 times daily for 7 days; 1 unit; ms3 Refills: 0, Product Selection Permitted Signatures: Annie Baltazar RN RN ph Sae Hamilton DO DO ms3 Sheridan Keenan RN RN me1 Corrections: (The following items were deleted from the chart) 08:13 08:05 Cardiovascular: Negative for chest pain, and palpitations. Respiratory: Negative ms3 for shortness of breath, cough, wheezing, and pleuritic chest pain, Abdomen/GI: Negative for abdominal pain, nausea, vomiting, diarrhea, and constipation, MS/Extremity: Negative for injury and deformity, Skin: Negative for injury, rash, and discoloration, ms3
[2023-03-30] MEDS ORDERED: PROMETHAZINE INJ 25 MG/ML AMP ONE (08:04)
[2023-03-30 08:21] VITALS: BP 159/95; TEMP 97.7; O2SAT 98
== END 2023-03-30 08:17 | disposition home or self-care (01) ==
LOC: ER 07:29
DX: S05.02XA Injury of conjunctiva and corneal abrasion without foreign body, left eye, initial encounter (principal); G30.9 Alzheimer's disease, unspecified; F02.80 Dementia in other diseases classified elsewhere, unspecified severity, without behavioral disturbance, psychotic disturbance, mood disturbance, and anxiety; Z98.82 Breast implant status; Z88.5 Allergy status to narcotic agent
CPT/HCPCS: 96372; 99284; J2550; Q0162

== ENCOUNTER 2023-04-28 23:48 | Emergency (ER) | payer OTHER, BC ==
--- OUTSIDE RECORDS SUMMARY | 2023-04-28 23:59 | XMS REPORT | Continuity of Care Document ---
:1940 Author Organization [facility] t Address [address] [facility] [place] [address] Care Team Providers Name Role Phone PCP, [...] Policy Number Effective Date Expiration Date S [facility] MEDICARE PART A \T\ [id number] 2004 B 00:00:00 [facility] TRADITIONAL [id number] 2017 00:00:00 Problems Condition Condition Condition Status Onset Resolution Last Treating Co mments Source Name Details Category Date Date Treatment Clinician Date No known No known Disease Unive rs active active ity of problems problems [facility] Allergies, Adverse Reactions, Alerts Allergy Allergy Status Severity Reaction(s) Onset Inactive Treating Comm ents Source Name Type Date Date Clinician CODEINE DRUG Active N/V Univers INGREDI 1-16 ity of 00:00: [address] Codeine Propensi Active Nausea Univers ty to and/or 16 ity of adverse Vomiting 00:00: [place] reaction [address] [place] [address] s [place] NO KNOWN Drug Active Univers ALLERGIE Class ity of S [facility] Social History Social Habit Start Date Stop Date Quantity Comments Source Exposure to 2022-09-08 2022-09-18 Not sure [facility] SARS-CoV-2 (event) 00:00:00 09:01:00 Medica l Branch Sex Assigned At [birth year] [facility] [place] 00:00:00 00:00:00 Medical [place] Smoking Status Start Date Stop Date Source Tobacco smoking consumption [facility] unknown Branch Medications Ordered Filled Start Stop Current Ordering Indication Dosage Frequency Signature Comments Components Source Medication Medication Date Date Medication? Clinician (SIG) Name Name No known No No known Unive rs medications -16 medication it y of 09:05: s [address] Branch gadoteridol 2019- 2020- No .2mL/kg 0.2 mL/kg, Univers (PROHANCE-1 2-10 12-10 Intravenou i ty of 5 mL) 21:45: 22:15 s, ONCE, 1 [place] injection 00 :00 dose, Leni Medic al 0.2 mL/kg 08/12/20 Branch at 1545, Routine Vital Signs Vital Name Observation Time Observation Value Comments Source Heart rate 2022-09-18 16:44:00 62 /min [facility] Respiratory rate 2022-09-18 16:44:00 20 /min [facility] Oxygen saturation in 2022-09-18 16:44:00 99 /min [facility] Arterial blood by [facility] Pulse oximetry Branch Systolic blood 2022-09-18 16:00:18 153 mm[Hg] Univer [facility] Diastolic blood 2022-09-18 16:00:18 86 mm[Hg] Unive [facility] Body temperature 2022-09-18 15:03:00 36.89 Keesha [facility] Body height 2022-09-18 15:03:00 160 cm [facility] Body weight 2022-09-18 15:03:00 53.524 kg [facility] BMI 2022-09-18 15:03:00 20.90 kg/m2 [facility] Procedures Procedure Date / Time Performed Performing Clinician [place] TRAUMA HEAD WO 2022-09-18 15:55:32 Niecy [facility] TRAUMA CERVICAL 2022-09-18 15:55:32 Niecy [facility]AST Medical Branch XR SHOULDER <2 VW LEFT 2022-09-18 15:40:40 [facility]ie[facility] [place] [facility] NOTICE OF PRIVACY 2022-09-18 14:59:10 Doctor Unassigned, No [facility] Name Medical Branch CONSENT/REFUSAL FOR 2022-09-18 14:58:45 Doctor Unassigned, No [facility] [place] DIAGNOSIS AND Name Medical Branch TREATMENT MR ABDOMEN W WO 2020-08-12 22:16:07 Requisition, Paper [facility] CONTRAST MRCP Medical Branch NOTICE OF PRIVACY 2020-08-12 21:10:37 Doctor Unassigned, No [facility] Name Medical Branch CONSENT/REFUSAL FOR 2020-08-12 21:10:07 [facility] No [facility] Medical Branch TREATMENT ASSIGNMENT OF BENEFITS 2020-08-12 21:09:46 Doctor Unassigned, No [facility] Medical Branch Encounters Start End Encounter Admission Attending Care Care Encounter Source Date/Time Date/Time Type Type Clinicians Facility Department ID 2022-09-18 2022-09-18 Emergency X QUINN [facility] ERT [id number] Univers 09:05:00 10:46:00 NIECY raymond [facility] 2022-09-18 2022-09-18 Emergency Quinn [facility] [id number] Univers 09:05:00 10:46:00 Niecy BOWER [id number] ity [facility] [id number] [facility] [id number] [facility] 084 Branch 2020-08-12 2020-08-12 Outpatient R [facility] [id number] Univers 15:11:31 23:59:00 ity of [facility] 2020-08-12 2020-08-12 Hospital Radiology [facility] [id number] Univers 15:00:00 23:59:00 Encounter [place] [id number] ity of [place] [id number] [facility] [id number] [facility] 804 Branch 2020-08-12 2020-08-12 Hospital Radiology [facility] [id number] 15:00:00 23:59:00 Encounter [place] [id number] [place] [id number] [place] [id number] Results Test Test Test Results Result Source Description Time Comments Comments MR ABDOMEN W WO 2020-08- HISTORY: Chronic Uni versity of CONTRAST MRCP [address] [facility] 22:28:06 TECHNIQUE: MRI studies Br anch [...] (test code = BUN) 16.0 mg/dl 6.0-17.0 [facility], [id number] 09:33:00 Test Item Value Reference Range Interpretation Comments Creatinine (test 1.0 mg/dl 0.4-1.2 code = CREA) EGFR if >60 [place] (test code mL/min/1.73m\ = EGFRAA) S\2 EGFR if Non- 57 Estimate d Glomerular [place] (test code mL/min/1.73m\ Filtrat ion Rate (eGFR) [...] and management of c hronic kidney failure. [facility]
[2023-04-29] MEDS ORDERED: KETOROLAC 30 MG/ML INJ ONE (00:43)
[2023-04-29] MEDS ORDERED: FAMOTIDINE 20 MG/2 ML VIAL IV ONE (00:43)
[2023-04-29] MEDS ORDERED: ONDANSETRON 4 MG/2 ML VIAL ONE (00:43)
[2023-04-29] MEDS ORDERED: METOCLOPRAMIDE 10 MG/2mL INJ ONE (00:43)
[2023-04-29 00:52] LABS: Absolute Lymphocytes (CBC) 1.1 K/uL (0.7-4.9); Hematocrit 43.1 % (36.0-45.0); Lymphocytes % 14.1 % (15.3-44.8); MCV 90.9 fL (80-100); MPV 7.3 fL (7.6-11.3); Platelets 261 thou/uL (152-406); RBC Red Blood Cell Count 4.74 M/uL (3.86-4.86)
[2023-04-29 01:16] LABS: Albumin 3.5 g/dL (3.4-5.0); Bilirubin Total 0.4 mg/dL (0.2-1.0); Potassium 3.2 mEq/L (3.5-5.1); Protein, Total 7.2 g/dL (6.4-8.2)
--- NOTE | 2023-04-29 03:49 | EDPHYS ---
Physician Documentation [facility] Name: Milan Weir Age: 83 yrs Sex: Female : 1940 Arrival Date: 04/28/2023 Time: 23:48 Bed 8 Private MD: ED Physician Sae Hamilton HPI: 04/29 00:14 This 83 yrs old Female presents to ER via EMS with complaints of abdominal pain, ms3 nausea, vomiting. 00:14 83-year-old female with past medical history of COPD, hernia, pancreatitis, chronic ms3 vomiting, fibromyalgia presents for vomiting and abdominal pain that began at 4 PM. Patient states the symptoms are similar to the her previous episodes. Patient states she is having whole body pain and rates it a 9/10. Patient denies alleviating or inciting factors. . Historical: - Allergies: 04/28 23:57 Tylenol-Codeine; lg3 23:57 Codeine; lg3 - Home Meds: 23:57 Unable to obtain [Active]; lg3 - PMHx: 23:57 Alzheimers; COPD; Hernia; Pancreatitis; lg3 - PSHx: 23:57 Adenoid excision; breast implants; double masectomy; stomach surgery to prevent lg3 vomiting; Tonsillectomy; Total abdominal hysterectomy; Appendectomy; Cholecystectomy; - Immunization history:: Adult Immunizations up to date, Client reports receiving the 2nd dose of the Covid vaccine, Flu vaccine is up to date. - Social history:: Smoking status: Patient denies any tobacco usage or history of. Patient/guardian denies using alcohol, street drugs. ROS: 04/29 00:14 Constitutional: Negative for fever, and chills. Neck: Negative for injury, pain, and ms3 swelling, Cardiovascular: Negative for chest pain, and palpitations. Respiratory: Negative for shortness of breath, cough, wheezing, and pleuritic chest pain. Skin: Negative for injury, rash, and discoloration. Abdomen/GI: Positive for abdominal pain, nausea and vomiting. All other systems are negative. Exam: 00:14 Constitutional: This is a well developed, well nourished patient who is awake, alert, ms3 and in no acute distress. Head/Face: Normocephalic, atraumatic. Neck: Trachea midline, no cervical lymphadenopathy. Supple, full range of motion without nuchal rigidity, or vertebral point tenderness. No Meningismus. Chest/axilla: Normal chest wall appearance and motion. Nontender with no deformity. Cardiovascular: Regular rate and rhythm with a normal S1 and S2. No gallops, murmurs, or rubs. Normal PMI, no JVD. No pulse deficits. Respiratory: Lungs have equal breath sounds bilaterally, clear to auscultation and percussion. No rales, rhonchi or wheezes noted. No increased work of breathing, no retractions or nasal flaring. Skin: Warm, dry with normal turgor. Normal color with no rashes, no lesions, and no evidence of cellulitis. MS/ Extremity: Pulses equal, no cyanosis. Neurovascular intact. Full, normal range of motion. 00:14 Abdomen/GI: Inspection: abdomen appears normal, Bowel sounds: normal, Palpation: moderate abdominal tenderness, in all quadrants. Vital Signs: 04/28 23:53 BP 148 / 72; Pulse 73; Resp 16 S; Temp 98.8(O); Pulse Ox 100% on R/A; Weight 73.94 kg lg3 (R); Height 5 ft. 4 in. (R); 04/29 00:46 BP 127 / 54; Pulse 73; Resp 16 S; Pulse Ox 98% on R/A; lg3 01:48 BP 134 / 74; Pulse 71; Resp 17 S; Pulse Ox 99% on R/A; lg3 04:47 BP 152 / 68; Pulse 67; Resp 18; Pulse Ox 97% on R/A; kl 04/28 23:53 Body Mass Index 27.98 (73.94 kg, 162.56 cm) lg3 MDM: 00:12 Patient medically screened. ms3 00:14 Differential diagnosis: bowel obstruction, non-specific abd pain, pancreatitis. ms3 03:48 Data reviewed: vital signs, nurses notes, lab test result(s), radiologic studies, CT ms3 scan, and as a result, I will discharge patient. Consideration of Admission/Observation Escalation of care including admission/observation considered. CT abd/Pelvis does not show surgical emergency. I considered the following discharge prescriptions or medication management in the emergency department Medications were administered in the Emergency Department. See MAR. Independent interpretation of the following test(s) in the Emergency Department CT Scan: My interpretation is CT abdomen/ pelvis images reviewed and no bowel obstruction appreciated.. Historians other than the Patient: EMS: . Care significantly affected by the following chronic conditions: Chronic Obstructive Pulmonary Disease. Counseling: I had a detailed discussion with the patient and/or guardian regarding the historical points, exam findings, and any diagnostic results supporting the discharge/admit diagnosis, lab results, radiology results, the need for outpatient follow up, to return to the emergency department if symptoms worsen or persist or if there are any questions or concerns that arise at home. Response to treatment: the patient's symptoms have markedly improved after treatment, and as a result, I will discharge patient. Special discussion: Based on the patient's Hx, exam, and Dx evaluation, there is no indication for emergent surgery or inpatient Tx. It is understood by the patient/guardian that if the Sx's persist or worsen they need to return immediately for re-evaluation. 04/29 00:14 Order name: CBC with Diff; Complete Time: ms3 04/29 00:14 Order name: CMP; Complete Time: ms3 04/29 00:14 Order name: Lipase; Complete Time: ms3 04/29 00:14 Order name: CT Abd/Pelvis - IV Contrast Only ms3 04/29 00:14 Order name: IV Saline Lock; Complete Time: ms3 04/29 00:14 Order name: Labs collected and sent; Complete Time: 00: ms3 Administered Medications: 00:46 Drug: Famotidine IVP 20 mg Route: IVP; Site: left antecubital; lg3 00:46 Drug: TORadol - Ketorolac IVP 15 mg Route: IVP; Site: left antecubital; lg3 00:46 Drug: Ondansetron IVP 4 mg Route: IVP; Site: left antecubital; lg3 00:46 Drug: metoCLOPramide IVP 10 mg Route: IVP; Site: left antecubital; lg3 Disposition Summary: 04/29/23 03:48 Discharge Ordered Location: Home ms3 Condition: Stable ms3 Diagnosis - Abdominal pain, Generalized ms3 - Nausea with vomiting, unspecified ms3 Followup: ms3 - With: Edenilson Tomlinson MD - When: 1 - 2 days - Reason: Recheck today's complaints Discharge Instructions: - Discharge Summary Sheet ms3 - Abdominal Pain, Adult ms3 - Nausea and Vomiting, Adult ms3 Forms: - Medication Reconciliation Form ms3 - Thank You Letter ms3 - Antibiotic Education ms3 - Prescription Opioid Use ms3 - Patient Portal Instructions ms3 - Leadership Thank You Letter ms3 Signatures: Dispatcher [employer] Courtney Marie, RN RN lg3 Sae Hamilton DO DO ms3 Corrections: (The following items were deleted from the chart) 04/28 23:58 23:57 Allergies: Morphine; lg3 lg3 23:58 23:57 Allergies: tramadol; lg3 lg3
--- NOTE | 2023-04-29 03:49 | ER ---
Nurse's Notes [facility] Name: Milan Weir Age: 83 yrs Sex: Female : 1940 Arrival Date: 04/28/2023 Time: 23:48 Bed 8 Private MD: Diagnosis: Abdominal pain, Generalized;Nausea with vomiting, unspecified Presentation: 04/28 23:53 Chief complaint: Patient states: i have chronic all over pain and im hurting. new onset lg3 N/V/ Epigastric pain since 1600 today. 12.5 Phenergan with 100cc NS administered [employer] by EMS. Coronavirus screen: Client denies travel out of the [place] in the last 14 days. At this time, the client does not indicate any symptoms associated with coronavirus-19. Ebola Screen: No symptoms or risks identified at this time. Initial Sepsis Screen: Does the patient meet any 2 criteria? No. Patient's initial sepsis screen is negative. Does the patient have a suspected source of infection? No. Patient's initial sepsis screen is negative. Risk Assessment: Do you want to hurt yourself or someone else? Patient reports no desire to harm self or others. Onset of symptoms was April 28, 2023. 23:53 Method Of Arrival: EMS: [facility] lg3 23:53 Acuity: JARRETT 3 lg3 Triage Assessment: 23:57 General: Appears in no apparent distress. comfortable, Behavior is calm, cooperative. lg3 Pain: Complains of pain in epigastric area. EENT: No deficits noted. No signs and/or symptoms were reported regarding the EENT system. Neuro: No deficits noted. Ramirez Agitation-Sedation Scale (RASS): 0 - Alert and Calm Level of Consciousness is awake, alert, obeys commands, Oriented to person, place, time, situation. Cardiovascular: No deficits noted. Denies chest pain, shortness of breath, Capillary refill < 3 seconds Clubbing of nail beds is absent JVD is absent Patient's skin is warm and dry. Respiratory: No deficits noted. Airway is patent Respiratory effort is even, unlabored, Respiratory pattern is regular, symmetrical. GI: Abdomen is round non-distended, Abd is soft and non tender X 4 quads. Reports epigastric pain, nausea, vomiting. : No deficits noted. No signs and/or symptoms were reported regarding the genitourinary system. Derm: No deficits noted. No signs and/or symptoms reported regarding the dermatologic system. Skin is intact, is thin, Skin is dry, Skin is normal, Skin temperature is warm. Musculoskeletal: No deficits noted. No signs and/or symptoms reported regarding the musculoskeletal system. Circulation, motion, and sensation intact. Range of motion: intact in all extremities. Historical: - Allergies: 23:57 Tylenol-Codeine; lg3 23:57 Codeine; lg3 - Home Meds: 23:57 Unable to obtain [Active]; lg3 - PMHx: 23:57 Alzheimers; COPD; Hernia; Pancreatitis; lg3 - PSHx: 23:57 Adenoid excision; breast implants; double masectomy; stomach surgery to prevent lg3 vomiting; Tonsillectomy; Total abdominal hysterectomy; Appendectomy; Cholecystectomy; - Immunization history:: Adult Immunizations up to date, Client reports receiving the 2nd dose of the Covid vaccine, Flu vaccine is up to date. - Social history:: Smoking status: Patient denies any tobacco usage or history of. Patient/guardian denies using alcohol, street drugs. Screenin:59 [facility] ED Fall Risk Assessment (Adult) History of falling in the last 3 months, lg3 including since admission No falls in past 3 months (0 pts). Abuse screen: Denies threats or abuse. Denies injuries from another. Nutritional screening: No deficits noted. Tuberculosis screening: No symptoms or risk factors identified. Assessment: 23:59 General: see triage assessment. lg3 04/29 00:46 Reassessment: Patient appears in no apparent distress at this time. No changes from lg3 previously documented assessment. Patient and/or family updated on plan of care and expected duration. Pain level reassessed. Patient is alert, oriented x 3, equal unlabored respirations, skin warm/dry/pink. 01:48 Reassessment: Patient appears in no apparent distress at this time. Patient and/or lg3 family updated on plan of care and expected duration. Pain level reassessed. Patient is alert, oriented x 3, equal unlabored respirations, skin warm/dry/pink. Patient states feeling better. Patient states symptoms have improved. Vital Signs: 04/28 23:53 BP 148 / 72; Pulse 73; Resp 16 S; Temp 98.8(O); Pulse Ox 100% on R/A; Weight 73.94 kg lg3 (R); Height 5 ft. 4 in. (R); 04/29 00:46 BP 127 / 54; Pulse 73; Resp 16 S; Pulse Ox 98% on R/A; lg3 01:48 BP 134 / 74; Pulse 71; Resp 17 S; Pulse Ox 99% on R/A; lg3 04:47 BP 152 / 68; Pulse 67; Resp 18; Pulse Ox 97% on R/A; kl 04/28 23:53 Body Mass Index 27.98 (73.94 kg, 162.56 cm) lg3 ED Course: 04/28 23:51 Patient arrived in ED. kj1 23:53 Courtney Boogie, RN is Primary Nurse. lg3 23:57 Triage completed. lg3 23:57 Arm band placed on right wrist. lg3 23:59 Patient has correct armband on for positive identification. Placed in gown. Bed in low lg3 position. Call light in reach. Side rails up X 1. Client placed on continuous cardiac and pulse oximetry monitoring. NIBP monitoring applied. Door closed. Noise minimized. Warm blanket given. 23:59 Maintain EMS IV. Dressing intact. Good blood return noted. Site clean \T\ dry. Gauge \T\ lg 3 site: 22LAC. Patient maintains SpO2 saturation greater than 95% on room air. 04/29 00:07 Sae Hamilton DO is Attending Physician. ms3 00:46 CBC with Diff Sent. lg3 00:46 CMP Sent. lg3 00:46 Lipase Sent. lg3 01:46 CT Abd/Pelvis - IV Contrast Only In Process Unspecified. EDMS 03:48 Edenilson Tomlinson MD is Referral Physician. ms3 Administered Medications: 00:46 Drug: Famotidine IVP 20 mg Route: IVP; Site: left antecubital; lg3 00:46 Drug: TORadol - Ketorolac IVP 15 mg Route: IVP; Site: left antecubital; lg3 00:46 Drug: Ondansetron IVP 4 mg Route: IVP; Site: left antecubital; lg3 00:46 Drug: metoCLOPramide IVP 10 mg Route: IVP; Site: left antecubital; lg3 Outcome: 03:48 Discharge ordered by . ms3 04:30 Patient left the ED. kj1 Signatures: Dispatcher [employer] EDCherry Hernandez, Ela Salcedo RN kj1 Courtney Boogie RN RN lg3 Sae Hamilton DO DO ms3 Corrections: (The following items were deleted from the chart) 04/28 23:58 23:57 Allergies: Morphine; lg3 lg3 58 23:57 Allergies: tramadol; lg3 lg3
[2023-04-29 04:35] VITALS: TEMP 98.8
[2023-04-29 04:41] VITALS: BP 134/74; O2SAT 99
--- NOTE | 2023-04-30 11:08 | RAD REPORT ---
EXAM DESCRIPTION: CT - Abdomen Pelvis W Contrast - 04/29/2023 6:54 am CLINICAL HISTORY: The patient is 83 years old and is Female; ABD PAIN TECHNIQUE: Axial computed tomography images of the abdomen and pelvis with intravenous contrast. S agittal and coronal reformatted images were created and reviewed. This CT exam was performed using one or more of the following dose reduction techniques: automated exposure control, adjustment of t he mA and/or kV according to patient size, and/or use of iterative reconstruction technique. COMPARISON: CT abdomen pelvis April 14, 2022 FINDINGS: LUNG BASES: Areas of scarring/atelectasis within the lingula, right middle lobe, bilater al lower lobes is present. ABDOMEN: LIVER: Unremarkable. No mass. GALLBLADDER AND BILE DUCTS: Surgical clips are present in the right upper quadrant, consistent wi th previous cholecystectomy. PANCREAS: Fatty infiltration of pancreas is present. SPLEEN: Unremarkable. ADRENALS: Unremarkable. No mass. KIDNEYS AND URETERS: Unremarkable. The kidneys enhance symmetrically. No obstructing renal or ure teral calculus is seen. No hydronephrosis or hydroureter. No perinephric fluid or stranding. STOMACH AND BOWEL: The stomach is decompressed. The small bowel is normal in caliber. Minimal sto ol is noted throughout colon. No evidence of bowel obstruction. No significant bowel wall thickening. Colonic diverticulosis is noted, without associated inflammatory changes to suggest diverticulitis. PELVIS: APPENDIX: No findings to suggest acute appendicitis. BLADDER: The bladder is well distended. REPRODUCTIVE: The patient is status post hysterectomy. ABDOMEN and PELVIS: INTRAPERITONEAL SPACE: Unremarkable. No free air. No significant fluid collection. BONES/JOINTS: Schmorl's node superior endplate of L5 is present. The vertebral body heights are m aintained. There is no acute fracture. SOFT TISSUES: Bilateral breast implants are partially visualized. VASCULATURE: Atherosclerosis of the vasculature is present. The vessels are normal in caliber. No abdominal aortic aneurysm. LYMPH NODES: Unremarkable. No enlarged lymph nodes. IMPRESSION: Colonic diverticulosis without evidence of diverticulitis. Electronically signed by: Ana Lilia Koch MD 04/29/2023 2:12 AM CDT Due to temporary technical issues with the PACS/Fluency reporting system, reports are being signed by the in house radiologist without review as a courtesy to ensure prompt reporting. The interpreting r adiologist is fully responsible for the content of the report.
== END 2023-04-29 04:30 | disposition home or self-care (01) ==
LOC: ER 23:48
DX: R10.84 Generalized abdominal pain (principal); R11.2 Nausea with vomiting, unspecified; J44.9 Chronic obstructive pulmonary disease, unspecified; G30.9 Alzheimer's disease, unspecified; F02.80 Dementia in other diseases classified elsewhere, unspecified severity, without behavioral disturbance, psychotic disturbance, mood disturbance, and anxiety; Z88.5 Allergy status to narcotic agent; Z88.6 Allergy status to analgesic agent
CPT/HCPCS: 85025; 36415; 83690; 80053; 74177; 96375; 96374; 99284; Q9967; J2765; J2405

== ENCOUNTER 2023-05-08 11:33 | Emergency (ER) | payer OTHER, BC ==
--- OUTSIDE RECORDS SUMMARY | 2023-05-08 11:36 | XMS REPORT | Continuity of Care Document ---
:1940 Author Organization [facility] t Address [address] [facility] [address] [place] [address] Care Team Providers Name Role Phone PCP, [...] Policy Number Effective Date Expiration Date S [facility] [place] \T\ [id number] 2004 B 00:00:00 [facility] TRADITIONAL [id number] 2017 00:00:00 Problems Condition Condition Condition Status Onset Resolution Last Treating Co mments Source Name Details Category Date Date Treatment Clinician Date No known No known Disease Unive rs active active ity of problems problems [facility] Allergies, Adverse Reactions, Alerts Allergy Allergy Status Severity Reaction(s) Onset Inactive Treating Comm ents Source Name Type Date Date Clinician CODEINE DRUG Active N/V Univers INGREDI -16 ity of 00:00: [address] Codeine Propensi Active Nausea Univers ty to and/or 16 ity of adverse Vomiting 00:00: [place] reaction [address] [place] [address] s [place] NO KNOWN Drug Active Univers ALLERGIE Class ity of S [facility] Social History Social Habit Start Date Stop Date Quantity Comments Source Exposure to 2022-09-08 2022-09-18 Not sure [facility] SARS-CoV-2 (event) 00:00:00 09:01:00 Medica l Branch [facility] At [birth year] [facility] [place] 00:00:[facility] 00:00:00 Medical [place] Smoking Status Start Date Stop Date Source Tobacco smoking consumption [facility] unknown Branch Medications Ordered Filled Start Stop Current Ordering Indication Dosage Frequency Signature Comments Components Source Medication Medication Date Date Medication? Clinician (SIG) Name Name No known No No known Unive rs medications -16 medication it y of 09:05: s [address] Branch gadoteridol 2019- 2020- No .2mL/kg 0.2 mL/kg, Univers (PROHANCE-1 2-10 12-10 Intravenou i ty of 5 mL) 21:45: 22:15 s, ONCE, 1 [place] injection 00 :00 dose, Leni Medic al 0.2 mL/kg 08/12/20 Branch at 1545, Routine Vital Signs Vital Name Observation Time Observation Value Comments Source Heart rate 2022-09-18 16:44:00 62 /min [facility] Respiratory rate 2022-09-18 16:44:00 20 /min [facility] Oxygen saturation in 2022-09-18 16:44:00 99 /min [facility] Arterial blood by [facility] Pulse oximetry Branch Systolic blood 2022-09-18 16:00:18 153 mm[Hg] Univer [facility] Diastolic blood 2022-09-18 16:00:18 86 mm[Hg] Unive [facility] Body temperature 2022-09-18 15:03:00 36.89 Keesha [facility] Body height 2022-09-18 15:03:[address] [facility] Body weight 2022-09-18 15:03:[address] [facility] BMI 2022-09-18 15:03:00 20.90 kg/m2 [facility] Procedures Procedure Date / Time Performed Performing Clinician Nas [place] CT TRAUMA HEAD WO 2022-09-18 15:55:32 Niecy Ball [facility] CT TRAUMA CERVICAL 2022-09-18 15:55:32 Niecy Ball [facility]AST Medical Branch XR SHOULDER <2 VW LEFT 2022-09-18 15:40:40 Niecy Ball [facility] [place] [facility] NOTICE OF PRIVACY 2022-09-18 14:59:10 Doctor Unassigned, No [facility] Name Medical Branch CONSENT/REFUSAL FOR 2022-09-18 14:58:45 Doctor Unassigned, No [facility] [place] DIAGNOSIS AND Name Medical Branch TREATMENT MR ABDOMEN W WO 2020-08-12 22:16:07 Requisition, Paper [facility] CONTRAST MRCP Medical Branch NOTICE OF PRIVACY 2020-08-12 21:10:37 Doctor Unassigned, No [facility] Name Medical Branch CONSENT/REFUSAL FOR 2020-08-12 21:10:07 Doctor [facility]assigned, No [facility] Name Medical Branch TREATMENT ASSIGNMENT OF BENEFITS 2020-08-12 21:09:46 Doctor Unassigned, No [facility] Medical Branch Encounters Start End Encounter Admission Attending Care Care Encounter Source Date/Time Date/Time Type Type Clinicians Facility Department ID 2022-09-18 2022-09-18 Emergency X QUINN [facility] ERT [id number] Univers 09:05:00 10:46:00 NIECY raymond [facility] 2022-09-18 2022-09-18 Emergency Quinn [facility] [id number] Univers 09:05:00 10:46:00 Niecy BOWER [id number] ity [facility] [id number] [facility] [id number] [facility] 084 Branch 2020-08-12 2020-08-12 Outpatient R RADIOLOGY [facility] [id number] Univers 15:11:31 23:59:00 ity of [facility] 2020-08-12 2020-08-12 Hospital Radiology [facility] [id number] Univers 15:00:00 23:59:00 Encounter [place] [id number] ity of [place] [id number] [facility] [id number] [facility] 804 Branch 2020-08-12 2020-08-12 Hospital Radiology [facility] [id number] 15:00:00 23:59:00 Encounter Sumanth [id number] [place] [id number] [place] [id number] Results Test Test Test Results Result Source Description Time Comments Comments MR ABDOMEN W WO 2020-08- HISTORY: Chronic Uni versity of CONTRAST MRCP 10 abdominal pain. [facility] 22:28:06 TECHNIQUE: MRI studies Br [...] (test code = BUN) 16.0 mg/dl 6.0-17.0 [facility], [id number] 09:33:00 Test Item Value Reference Range Interpretation Comments Creatinine (test 1.0 mg/dl 0.4-1.2 code = CREA) EGFR if >60 Montenegrin (test code mL/min/1.73m\ = EGFRAA) S\2 EGFR if Non- 57 Estimate d Glomerular [place] (test code mL/min/1.73m\ Filtrat ion Rate (eGFR) [...] management of c hronic kidney failure. [facility]
--- NOTE | 2023-05-08 12:25 | ER ---
Nurse's Notes [facility] Name: Milan Weir Age: 83 yrs Sex: Female : 1940 Arrival Date: 05/08/2023 Time: 11:33 Bed IW4 Private MD: Diagnosis: Insect Bite of Face Presentation: 05/08 12:08 Chief complaint: Stung by unknown insect on bottom lip 2 days ago, c/o lip and facial hb swelling and pain 8/10. Coronavirus screen: At this time, the client does not indicate any symptoms associated with coronavirus-19. Ebola Screen: No symptoms or risks identified at this time. Initial Sepsis Screen: Does the patient meet any 2 criteria? No. Patient's initial sepsis screen is negative. Does the patient have a suspected source of infection? No. Patient's initial sepsis screen is negative. Risk Assessment: Do you want to hurt yourself or someone else? Patient reports no desire to harm self or others. Onset of symptoms was May 06, 2023. 12:08 Method Of Arrival: Ambulatory hb 12:08 Acuity: JARRETT 4 hb Historical: - Allergies: 12:09 Codeine; hb 12:09 Tylenol-Codeine; hb - PMHx: 12:09 Alzheimers; COPD; Hernia; Pancreatitis; hb - PSHx: 12:09 Adenoid excision; Appendectomy; breast implants; Cholecystectomy; double masectomy; hb stomach surgery to prevent vomiting; Tonsillectomy; Total abdominal hysterectomy; - Immunization history:: Adult Immunizations up to date. - Social history:: Smoking status: . Vital Signs: 12:08 BP 143 / 85; Pulse 89; Resp 20; Temp 98.1; Pulse Ox 98% ; Weight 54.88 kg; Height 5 ft. hb 4 in. ; Pain 8/10; 12:08 Body Mass Index 20.77 (54.88 kg, 162.56 cm) hb 12:08 Pain Scale: Adult hb ED Course: 11:36 Patient arrived in ED. mg5 12:09 Triage completed. hb 12:10 Arm band placed on. hb 12:20 Dariana Tellez FNP [facility]. jh7 12:20 John Ramon MD is Attending Physician. jh7 Administered Medications: No medications were administered Outcome: 12:24 Discharge ordered by MD. jh7 12:49 Patient left the ED. bc6 Signatures: Richa Hathaway, SANDY RN Dariana Thurman FNP FNP 7 Keesha Nick 6 Diana Cox 5
--- NOTE | 2023-05-08 12:25 | EDPHYS ---
Physician Documentation [facility] Name: Milan Weir Age: 83 yrs Sex: Female : 1940 Arrival Date: 05/08/2023 Time: 11:33 Bed IW4 Private MD: ED Physician John Ramon HPI: 05/08 12:15 This 83 yrs old Female presents to ER via Ambulatory with complaints of Insect Sting, jh7 Mouth Swelling. 12:15 Onset: The symptoms/episode began/occurred 2 day(s) ago. Patient stung by an insect jh7 while at home 2 days ago. She said that she killed the insect and was unable to tell what it was but has experienced lower lip swelling, pain, and redness since the incident. Denies fever.. Historical: - Allergies: 12:09 Codeine; hb 12:09 Tylenol-Codeine; hb - PMHx: 12:09 Alzheimers; COPD; Hernia; Pancreatitis; hb - PSHx: 12:09 Adenoid excision; Appendectomy; breast implants; Cholecystectomy; double masectomy; hb stomach surgery to prevent vomiting; Tonsillectomy; Total abdominal hysterectomy; - Immunization history:: Adult Immunizations up to date. - Social history:: Smoking status: . ROS: 12:15 Constitutional: Negative for fever, chills, and weight loss, Eyes: Negative for injury, jh7 pain, redness, and discharge, Cardiovascular: Negative for chest pain, palpitations, and edema, Respiratory: Negative for shortness of breath, cough, wheezing, and pleuritic chest pain, MS/Extremity: Negative for injury and deformity, Neuro: Negative for headache, weakness, numbness, tingling, and seizure. 12:15 Skin: Positive for erythema, swelling, of the lower lip/face. 12:15 All other systems are negative. Exam: 12:15 Constitutional: This is a well developed, well nourished patient who is awake, alert, jh7 and in no acute distress. Eyes: Pupils equal round and reactive to light, extra-ocular motions intact. Lids and lashes normal. Conjunctiva and sclera are non-icteric and not injected. Cornea within normal limits. Periorbital areas with no swelling, redness, or edema. Cardiovascular: Regular rate and rhythm with a normal S1 and S2. No gallops, murmurs, or rubs. Normal PMI, no JVD. No pulse deficits. Respiratory: Lungs have equal breath sounds bilaterally, clear to auscultation and percussion. No rales, rhonchi or wheezes noted. No increased work of breathing, no retractions or nasal flaring. MS/ Extremity: Pulses equal, no cyanosis. Neurovascular intact. Full, normal range of motion. Neuro: Awake and alert, GCS 15, oriented to person, place, time, and situation. Normal gait. 12:15 Skin: Mild erythema and swelling noted over the lower lip where insect stung the patient. The area is mildly tender to palpation.. Vital Signs: 12:08 BP 143 / 85; Pulse 89; Resp 20; Temp 98.1; Pulse Ox 98% ; Weight 54.88 kg; Height 5 ft. hb 4 in. ; Pain 8/10; 12:08 Body Mass Index 20.77 (54.88 kg, 162.56 cm) hb 12:08 Pain Scale: Adult hb MDM: 12:20 Patient medically screened. [facility] 12:25 Differential diagnosis: Allergic reaction, cellulitis, abscess. Data reviewed: vital [facility] signs, nurses notes. Counseling: I had a detailed discussion with the patient and/or guardian regarding the historical points, exam findings, and any diagnostic results supporting the discharge/admit diagnosis, to return to the emergency department if symptoms worsen or persist or if there are any questions or concerns that arise at home. Administered Medications: No medications were administered Disposition: 13:54 Co-signature as Attending Physician, John Ramon MD I reviewed the patient's care rn provided by the Advanced Practice Provider and agree with the diagnosis and treatment plan. Disposition Summary: 05/08/23 12:24 Discharge Ordered Location: Home [facility] Problem: new [facility] Symptoms: are unchanged [facility] Condition: Stable [facility] Diagnosis - Insect Bite of Face [facility] Followup: [facility] - With: Private Physician - When: 2 - 3 days - Reason: Recheck today's complaints Discharge Instructions: - Discharge Summary Sheet [facility] - Insect Bite, Adult 7 Forms: - Medication Reconciliation Form [facility] - Thank You Letter [facility] - Antibiotic Education [facility] - Patient Portal Instructions [facility] - Leadership Thank You Letter [facility] Prescriptions: - Doxycycline Hyclate 100 mg Oral Tablet - take 1 tablet by ORAL route 2 times per day for 7 days; 14 tablet; Refills: 0, jh7 Product Selection Permitted - Prednisone 20 mg Oral Tablet - take 2 tablets by ORAL route once daily for 5 days; 10 tablet; Refills: 0, jh7 Product Selection Permitted Signatures: John Ramon MD MD rn Baxter, Heather, RN RN Dariana Thurman, BUILDING PERFORMANCE SPECIALIST Formerly [facility]7
[2023-05-08 13:11] VITALS: BP 143/85; TEMP 98.1; O2SAT 98
== END 2023-05-08 12:49 | disposition home or self-care (01) ==
LOC: ER 11:33
DX: S00.561A Insect bite (nonvenomous) of lip, initial encounter (principal); G30.9 Alzheimer's disease, unspecified; F02.80 Dementia in other diseases classified elsewhere, unspecified severity, without behavioral disturbance, psychotic disturbance, mood disturbance, and anxiety; J44.9 Chronic obstructive pulmonary disease, unspecified; K85.90 Acute pancreatitis without necrosis or infection, unspecified; Z88.6 Allergy status to analgesic agent
CPT/HCPCS: 99281

== ENCOUNTER 2023-06-08 08:44 | Emergency (ER) | payer OTHER, BC ==
[2023-06-08] MEDS ORDERED: PROMETHAZINE INJ 25 MG/ML AMP ONE (09:17)
[2023-06-08] MEDS ORDERED: NA CHLORIDE 0.9% 500 ML ONE (09:18)
[2023-06-08] MEDS ORDERED: FAMOTIDINE 20 MG/2 ML VIAL IV ONE (09:18)
--- OUTSIDE RECORDS SUMMARY | 2023-06-08 09:19 | XMS REPORT | Continuity of Care Document ---
:1940 Author Organization [facility] t Address [address] [facility] [address] [place] [address] Care Team Providers Name Role Phone PCP, [...] Policy Number Effective Date Expiration Date S [facility] [place]IC[place] PART A \T\ [id number] 2004 B 00:00:00 [place] TRADITIONAL [id number] 2017 00:00:00 Problems Condition Condition Condition Status Onset Resolution Last Treating Co mments Source Name Details Category Date Date Treatment Clinician Date No known No known Disease Unive rs active active ity of problems problems [facility] Allergies, Adverse Reactions, Alerts Allergy Allergy Status Severity Reaction(s) Onset Inactive Treating Comm ents Source Name Type Date Date Clinician CODEINE DRUG Active N/V Univers INGREDI 1-16 ity of 00:00: [address] Codeine Propensi Active Nausea Univers ty to and/or -16 ity of adverse Vomiting 00:00: [place] reaction 00 [facility] s [place] NO KNOWN Drug Active Univers ALLERGIE Class ity of S [facility] Social History Social Habit Start Date Stop Date Quantity Comments Source Exposure to 2022-09-08 2022-09-18 Not sure [facility] SARS-CoV-2 (event) 00:00:00 09:01:00 Medica l Branch Sex Assigned At [birth year] [facility] y of [place] 00:00:00 00:00:00 Medical Branch Smoking Status Start Date Stop Date Source Tobacco [facility] consumption [facility] Medications Ordered Filled Start Stop Current Ordering Indication Dosage Frequency Signature Comments Components Source Medication Medication Date Date Medication? Clinician (SIG) Name Name No known No No known Unive rs medications -16 medication it y of 09:05: s [address] Branch gadoteridol 2019-09 2020- No .2mL/kg 0.2 mL/kg, Univers (PROHANCE-1 2-10 12-10 Intravenou i ty of 5 mL) 21:45: 22:15 s, ONCE, 1 [place] injection 00 :00 dose, Leni Medic al 0.2 mL/kg 08/12/20 Branch at 1545, Routine Vital Signs Vital Name Observation Time Observation Value Comments Source Heart rate 2022-09-18 16:44:00 62 /min [facility] Respiratory rate 2022-09-18 16:44:00 20 /min [facility] Oxygen saturation in 2022-09-18 16:44:00 99 /min [facility] Arterial blood by [facility] Pulse oximetry Branch Systolic blood 2022-09-18 16:00:18 153 mm[Hg] [facility] Diastolic blood 2022-09-18 16:00:18 86 mm[Hg] Unive [facility] Body temperature 2022-09-18 15:03:00 36.89 Keesha [facility] Body height 2022-09-18 15:03:00 160 cm [facility] Body weight 2022-09-18 15:03:00 53.524 kg [facility] BMI 2022-09-18 15:03:00 20.90 kg/m2 [facility] Procedures Procedure Date / Time Performed Performing Clinician Nas [place] CT TRAUMA HEAD WO 2022-09-18 15:55:32 Niecy Ball [facility] CONTRAST Medical Branch CT TRAUMA CERVICAL 2022-09-18 15:55:32 Niecy Ball [facility] CONTRAST Medical Branch XR SHOULDER <2 VW LEFT 2022-09-18 15:40:40 Niecy Ball [facility] [place] [facility] NOTICE OF PRIVACY 2022-09-18 14:59:10 Doctor Unassigned, No [facility] Name Medical Branch CONSENT/REFUSAL FOR 2022-09-18 14:58:45 Doctor Unassigned, No [facility] [place] DIAGNOSIS AND Name Medical Branch TREATMENT MR ABDOMEN W WO 2020-08-12 22:16:07 Requisition, Paper [facility] CONTRAST MRCP Medical Branch NOTICE OF PRIVACY 2020-08-12 21:10:37 Doctor Unassigned, No [facility] Name Medical Branch CONSENT/REFUSAL FOR 2020-08-12 21:10:07 [facility]igned, No [facility] Medical Branch TREATMENT ASSIGNMENT OF BENEFITS 2020-08-12 21:09:46 Doctor Unassigned, No [facility] Medical Branch Encounters Start End Encounter Admission Attending Care Care Encounter Source Date/Time Date/Time Type Type Clinicians Facility Department ID 2022-09-18 2022-09-18 Emergency X QUINN [facility] ERT [id number] Univers 09:05:00 10:46:00 NIECY raymond [facility] 2022-09-18 2022-09-18 Emergency Quinn [facility] [id number] Univers 09:05:00 10:46:00 Niecy BOWER [id number] ity [facility] [id number] [facility] [id number] [facility] 084 Branch 2020-08-12 2020-08-12 Outpatient R RADIOLOGY [facility] [id number] Univers 15:11:31 23:59:00 ity of [facility] 2020-08-12 2020-08-12 Hospital Radiology [facility] [id number] Univers 15:00:00 23:59:00 Encounter Sumanth [id number] ity of [place] [id number] [facility] [id number] [facility] 804 Branch 2020-08-12 2020-08-12 [facility] Radiology [facility] [id number] 15:00:00 23:59:00 Encounter Sumanth [id number] [place] [id number] [place] [id number] Results Test Test Test Results Result Source Description Time Comments Comments MR ABDOMEN W WO 2020-08- HISTORY: Chronic Uni versity of CONTRAST MRCP 10 abdominal pain. [facility] 22:28:06 TECHNIQUE: MRI studies Br anch of [...] without and with contrast including MRCP studies. [facility], Radiant Results Inft User - 08/12/2020 4:29 [...] (test code = BUN) 16.0 mg/dl 6.0-17.0 [facility], [id number] 09:33:00 Test Item Value Reference Range Interpretation Comments Creatinine (test 1.0 mg/dl 0.4-1.2 code = CREA) EGFR if >60 [place]er (test code mL/min/1.73m\ = EGFRAA) S\2 EGFR if Non- 57 Estimate d Glomerular [place] (test code mL/min/1.73m\ Filtrat ion Rate (eGFR) [...] and management of c hronic kidney failure. [facility]
[2023-06-08 09:28] LABS: Absolute Lymphocytes (CBC) 1.7 K/uL (0.7-4.9); Hematocrit 41.5 % (36.0-45.0); MCV 90.5 fL (80-100); Platelets 295 thou/uL (152-406); RBC Red Blood Cell Count 4.59 M/uL (3.86-4.86)
[2023-06-08 09:38] LABS: Albumin 3.2 g/dL (3.4-5.0); Bilirubin Total 0.7 mg/dL (0.2-1.0); Potassium 3.3 mEq/L (3.5-5.1); Protein, Total 6.9 g/dL (6.4-8.2)
--- NOTE | 2023-06-08 10:31 | RAD REPORT ---
EXAM DESCRIPTION: CT - Abdomen Pelvis W Contrast - 06/08/2023 9:47 am CLINICAL HISTORY: ABD PAIN COMPARISON: Abdomen Pelvis W Contrast dated 04/29/2023; Abdomen Pelvis W Contrast dated 04/14/2022 ; Abdomen Pelvis W Contrast dated 04/20/2021; Abdomen Pelvis W Contrast dated 01/24/2021 TECHNIQUE: Thin cut axial CT imaging of the abdomen and pelvis was performed following intravenous a dministration of 100 mL Isovue 300. Multiplanar reformats were generated and reviewed. All CT scans are performed using dose optimization technique as appropriate and may include automated exposure control or mA/KV adjustment according to patient size. FINDINGS: No suspicious findings in the lung bases. The liver, spleen, adrenal glands, and pancreas show no suspicious findings. Gallbladder was surgical ly removed. Symmetric renal function is seen with no hydronephrosis or suspicious renal mass. No dilated bowel loops. Colonic diverticulosis. Fluid opacification within nondistended large bowel. Some mucosal hyperenhancement is noted along the distal transverse colon and throughout the descendin g colon and proximal sigmoid. No free air, free fluid or inflammatory stranding. No hernia, mass or b ulky lymphadenopathy. Status post hysterectomy. The urinary bladder is without significant finding. No suspicious bony findings. IMPRESSION: Fluid opacification within nondistended large bowel. Some mucosal hyperenhancement is n oted along the distal transverse colon and throughout the descending colon and proximal sigmoid. Find ings are nonspecific but suggest segmental colitis.
--- NOTE | 2023-06-08 11:57 | RAD REPORT ---
EXAM DESCRIPTION: RADChest Single View06/08/2023 11:47 am CLINICAL HISTORY: CHEST PAIN COMPARISON: Chest Single View dated 07/26/2022; Chest Single View dated 04/14/2022; Chest Single View dated 01/24/2021; Chest Single View dated 05/28/2020 TECHNIQUE: Portable AP view of the chest. FINDINGS: The lungs are clear. No pneumothorax or effusion. The cardiomediastinal contours are unre markable. Left chest wall port in place. IMPRESSION: No acute cardiopulmonary process.
--- NOTE | 2023-06-08 13:01 | EDPHYS ---
Physician Documentation [facility] Name: Milan Weir Age: 83 yrs Sex: Female : 1940 Arrival Date: 06/08/2023 Time: 08:44 Bed 3 Private MD: ED Physician Chace Sepulveda HPI: 06/08 09:26 This 83 yrs old Female presents to ER via EMS with complaints of Chest Pain. jh7 09:26 Onset: The symptoms/episode began/occurred this morning. Associated signs and symptoms: jh7 Pertinent positives: abdominal pain, nausea, belching, Pertinent negatives: shortness of breath, sore throat, vomiting. 83-year-old female presents to the ER for epigastric pain since this morning. Reports a history of COPD, hysterectomy, and cholecystectomy. EMS gave 324 megs of aspirin in route, and reports that the patient has been belching the entire time. The patient also reports that she has a history of intermittent loose stool and urinary incontinence.. Historical: - Allergies: 09: Codeine; ko1 09:26 Tylenol-Codeine; ko1 - PMHx: 09: Alzheimers; COPD; Hernia; Pancreatitis; ko1 - PSHx: 09:26 Adenoid excision; Appendectomy; breast implants; Cholecystectomy; double masectomy; ko1 stomach surgery to prevent vomiting; Tonsillectomy; Total abdominal hysterectomy; - Immunization history:: Adult Immunizations up to date. - Social history:: Smoking status: Patient/guardian denies using tobacco, but has a distant history of tobacco abuse. ROS: 09:26 Constitutional: Negative for fever, chills, and weight loss, Eyes: Negative for injury, jh7 pain, redness, and discharge, Neck: Negative for injury, pain, and swelling, Cardiovascular: Negative for chest pain, palpitations, and edema, Respiratory: Negative for shortness of breath, cough, wheezing, and pleuritic chest pain, Back: Negative for injury and pain, MS/Extremity: Negative for injury and deformity, Skin: Negative for injury, rash, and discoloration, Neuro: Negative for headache, weakness, numbness, tingling, and seizure, : Abdomen/GI: Positive for abdominal pain, nausea, Negative for vomiting, diarrhea, rectal pain, rectal bleeding, :26 All other systems are negative, Exam: 09:26 Constitutional: This is a well developed, well nourished patient who is awake, alert, jh7 and in no acute distress. Head/Face: Normocephalic, atraumatic. Neck: Trachea midline, no thyromegaly or masses palpated, and no cervical lymphadenopathy. Supple, full range of motion without nuchal rigidity, or vertebral point tenderness. No Meningismus. Cardiovascular: Regular rate and rhythm with a normal S1 and S2. No gallops, murmurs, or rubs. Normal PMI, no JVD. No pulse deficits. Respiratory: Lungs have equal breath sounds bilaterally, clear to auscultation and percussion. No rales, rhonchi or wheezes noted. No increased work of breathing, no retractions or nasal flaring. Back: No spinal tenderness. No costovertebral tenderness. Full range of motion. Skin: Warm, dry with normal turgor. Normal color with no rashes, no lesions, and no evidence of cellulitis. MS/ Extremity: Pulses equal, no cyanosis. Neurovascular intact. Full, normal range of motion. Neuro: Awake and alert, GCS 15, oriented to person, place, time, and situation. Normal gait. 09:26 Abdomen/GI: Inspection: abdomen appears normal, Bowel sounds: normal, Palpation: soft, mild abdominal tenderness, in the epigastric area, no appreciated organomegaly, Vital Signs: 08:45 BP 167 / 75; Pulse 73; Resp 16; Temp 97; Pulse Ox 100% on R/A; ko1 09:48 BP 176 / 88; Pulse 70; Resp 16; Pulse Ox 100% ; ko1 11:25 BP 162 / 80; Pulse 72; Resp 16; Pulse Ox 99% ; ko1 13:11 BP 158 / 78; Pulse 78; Resp 16; Pulse Ox 99% ; ko1 MDM: 08:50 Patient medically screened. [facility] 12:58 Differential diagnosis: pneumonia Acute VA, dyspepsia, gastritis, colitis. Data [facility] reviewed: vital signs, nurses notes, lab test result(s), EKG, radiologic studies, CT scan, plain films. Consideration of Admission/Observation Escalation of care including admission/observation considered. I considered the following discharge prescriptions or medication management in the emergency department Medications were administered in the Emergency Department. See MAR. Independent interpretation of the following test(s) in the Emergency Department EKG: See my EKG interpretation above. Care significantly affected by the following chronic conditions: Chronic Obstructive Pulmonary Disease. Counseling: I had a detailed discussion with the patient and/or guardian regarding the historical points, exam findings, and any diagnostic results supporting the discharge/admit diagnosis, the need for outpatient follow up, a hand stamper, to return to the emergency department if symptoms worsen or persist or if there are any questions or concerns that arise at home. Response to treatment: the patient's symptoms have markedly improved after treatment. ED course: Reviewed the patient's labs and CT report. She states that she has seen many different GI doctors and has had colitis multiple times. She reports that she does not have left lower quadrant pain, no fever, and that her stools have not changed. She states that she would rather follow-up with her GI doctor and be given antibiotics in case symptoms worsen or new symptoms develop.. 06/08 09:00 Order name: CBC with Diff; Complete Time: 10:23 [facility] 06/08 09:00 Order name: CMP; Complete Time: 10: [facility] 06/08 09:00 Order name: Lipase; Complete Time: 10:23 [facility] 06/08 09:00 Order name: Troponin High Sensitivity; Complete Time: 10:23 [facility] 06/08 11:29 Order name: Troponin High Sensitivity; Complete Time: 12:58 [facility] 06/08 09:00 Order name: CT Abd/Pelvis - IV Contrast Only; Complete Time: 10:47 [facility] 06/08 10:49 Order name: XRAY Chest (1 view); Complete Time: 11:58 [facility] 06/08 09:00 Order name: EKG; Complete Time: 09:01 [facility] 06/08 09:00 Order name: IV Saline Lock; Complete Time: :11 [facility] 06/08 09:00 Order name: Labs collected and sent; Complete Time: : [facility] 06/08 09:00 Order name: EKG - Nurse/Tech; Complete Time: : [facility] EC:11 Rate is 66 beats/min. Rhythm is regular. QRS Kopperl is Normal. OK interval is normal at jh7 144 msec. QRS interval is normal at 66 msec. QT interval is normal at 418 msec. No Q waves. T waves are Normal. No ST changes noted. Clinical impression: Normal ECG. Administered Medications: 09:19 Drug: Famotidine IVP 20 mg IVP once; dilute with 10 mL 0.9% NaCl; give over 2 minutes ko1 Route: IVP; Site: left antecubital; 09:19 Drug: Promethazine IVP 12.5 mg IVP once Route: IVP; Site: left antecubital; ko1 09:19 Drug: NS 0.9% IV 500 ml IV at 1 bolus once Route: IV; Rate: 1 bolus; Site: left ko1 antecubital; Disposition: 14:35 Co-signature as Attending Physician, Chace Sepulveda MD I reviewed the patient's care rt provided by the Advanced Practice Provider and agree with the diagnosis and treatment plan. Disposition Summary: 06/08/23 13:00 Discharge Ordered Notes: Location: Home [facility] Problem: new [facility] Symptoms: have improved [facility] Condition: Stable [facility] Diagnosis - Noninfective gastroenteritis and colitis, unspecified [facility] - Epigastric pain [facility] Followup: [facility] - With: Private Physician - When: 2 - 3 days - Reason: Recheck today's complaints Discharge Instructions: - Discharge Summary Sheet [facility] - Colitis [facility] Forms: - Medication Reconciliation Form [facility] - Thank You Letter [facility] - Antibiotic Education [facility] - Patient Portal Instructions [facility] - Leadership Thank You Letter [facility] Prescriptions: - Flagyl 500 mg Oral Tablet - take 1 tablet ORAL route every 12 hours for 7 days; 14 tablet; Refills: 0, [facility] Product Selection Permitted - Levsin 0.125 mg Oral Tablet - take 1 tablet ORAL route every 8 hours; 30 tablet; Refills: 0, Product [facility] Selection Permitted - Cipro 500 mg Oral Tablet - take 1 tablet ORAL route every 12 hours for 7 days; 14 tablet; Refills: 0, [facility] Product Selection Permitted - Pepcid 20 mg Oral Tablet - take 1 tablet ORAL route once daily; 20 tablet; Refills: 0, Product Selection [facility] Permitted Signatures: Dispatcher [employer] Dariana Gonzales FNP FNP [facility] Kayla Hart, RN RN ko1 Chace Sepulveda MD MD rt
--- NOTE | 2023-06-08 13:01 | ER ---
Nurse's Notes [facility] Name: Milan Weir Age: 83 yrs Sex: Female : 1940 Arrival Date: 06/08/2023 Time: 08:44 Bed 3 Private MD: Diagnosis: Noninfective gastroenteritis and colitis, unspecified;Epigastric pain Presentation: 06/08 08:45 Chief complaint: EMS states: patient called for chest pain which is more epigastric ko1 pain, patient is belching a lot and complaining of nausea. Coronavirus screen: At this time, the client does not indicate any symptoms associated with coronavirus-19. Ebola Screen: No symptoms or risks identified at this time. Initial Sepsis Screen: Does the patient meet any 2 criteria? No. Patient's initial sepsis screen is negative. Does the patient have a suspected source of infection? No. Patient's initial sepsis screen is negative. Risk Assessment: Do you want to hurt yourself or someone else? Patient reports no desire to harm self or others. Onset of symptoms was June 08, 2023. 08:45 Method Of Arrival: EMS: [facility] ko1 08:45 Acuity: JARRETT 3 ko1 Triage Assessment: 09:26 General: Appears in no apparent distress. Behavior is calm, cooperative, appropriate ko1 for age. Pain: Complains of pain in epigastric area. Cardiovascular: No deficits noted. Historical: - Allergies: 09:26 Codeine; ko1 09:26 Tylenol-Codeine; ko1 - PMHx: 09:26 Alzheimers; COPD; Hernia; Pancreatitis; ko1 - PSHx: 09:26 Adenoid excision; Appendectomy; breast implants; Cholecystectomy; double masectomy; ko1 stomach surgery to prevent vomiting; Tonsillectomy; Total abdominal hysterectomy; - Immunization history:: Adult Immunizations up to date. - Social history:: Smoking status: Patient/guardian denies using tobacco, but has a distant history of tobacco abuse. Screenin:27 [facility] ED Fall Risk Assessment (Adult) History of falling in the last 3 months, ko1 including since admission No falls in past 3 months (0 pts) Confusion or Disorientation No (0 pts) Intoxicated or Sedated No (0 pts) Impaired Gait No (0 pts) Mobility Assist Device Used No (0 pt) Altered Elimination No (0 pt) Score/Fall Risk Level 0 - 2 = Low Risk Oriented to surroundings, Maintained a safe environment, Educated pt \T\ family on fall prevention, incl call for assistance when getting out of bed, Assessed \T\ reinforced patient's understanding of fall precautions, Provided non-skid footwear, Hourly rounding (assess needs \T\ fall precautionary measures) done, Used ambulatory aids as needed (educated on \T\ assisted with), Used gait belt as appropriate. Abuse screen: Denies threats or abuse. Denies injuries from another. Nutritional screening: No deficits noted. Tuberculosis screening: No symptoms or risk factors identified. Assessment: 09:27 General: Appears in no apparent distress. Pain: Pain does not radiate. Pain began ko1 gradually. Neuro: No deficits noted. Cardiovascular: No deficits noted. Respiratory: Breath sounds with wheezes bilaterally. GI: Reports nausea. : No deficits noted. EENT: No deficits noted. Derm: No deficits noted. Musculoskeletal: No deficits noted. Vital Signs: 08:45 BP 167 / 75; Pulse 73; Resp 16; Temp 97; Pulse Ox 100% on R/A; ko1 09:48 BP 176 / 88; Pulse 70; Resp 16; Pulse Ox 100% ; ko1 11:25 BP 162 / 80; Pulse 72; Resp 16; Pulse Ox 99% ; ko1 13:11 BP 158 / 78; Pulse 78; Resp 16; Pulse Ox 99% ; ko1 ED Course: 08:48 Patient arrived in ED. 7 08:50 [facility]z [facility] jh7 08:50 Chace Sepulveda MD is Attending Physician. 7 08:58 Kayla Hart, SANDY is Primary Nurse. ko1 09:08 Inserted saline lock: 20 gauge in left antecubital area, using aseptic technique. Blood ko1 collected. 09:11 CBC with Diff Sent. cp4 09:11 CMP Sent. cp4 09:11 Lipase Sent. cp4 09:11 Troponin High Sensitivity Sent. cp4 09:26 Triage completed. ko1 09:26 Arm band placed on right wrist. Patient placed in an exam room, on a stretcher, on ko1 cafeteria monitor, on pulse oximetry, Patient notified of wait time. 09:27 Patient maintains SpO2 saturation greater than 95% on room air. ko1 09:27 Patient has correct armband on for positive identification. Placed in gown. Bed in low ko1 position. Call light in reach. Side rails up X2. Provided Education on: na. Client placed on continuous cardiac and pulse oximetry monitoring. NIBP monitoring applied. electronic device monitor on. Door closed. Noise minimized. Lights dimmed. Warm blanket given. 09:48 CT Abd/Pelvis - IV Contrast Only In Process Unspecified. EDMS 11:25 No provider procedures requiring assistance completed. ko1 11:45 XRAY Chest (1 view) In Process Unspecified. EDMS 13:11 IV discontinued, intact, bleeding controlled, No redness/swelling at site. Pressure ko1 dressing applied. Administered Medications: 09:19 Drug: Famotidine IVP 20 mg IVP once; dilute with 10 mL 0.9% NaCl; give over 2 minutes ko1 Route: IVP; Site: left antecubital; 09:19 Drug: Promethazine IVP 12.5 mg IVP once Route: IVP; Site: left antecubital; ko1 09:19 Drug: NS 0.9% IV 500 ml IV at 1 bolus once Route: IV; Rate: 1 bolus; Site: left ko1 antecubital; Medication: 11:25 VIS not applicable for this client. ko1 Outcome: 13:00 Discharge ordered by . saba 13:11 Discharged to home ambulatory, with family, ko1 13:11 Condition: improved 13:11 Discharge instructions given to patient, family, Instructed on discharge instructions, follow up and referral plans. medication usage, Demonstrated understanding of instructions, follow-up care, medications, Prescriptions given X 4, 13:12 Patient left the ED. ko1 Signatures: Dispatcher [employer] EDMS Coleen Helms, RN RN jl7 Dariana Tellez, CIRCUIT BOARD INSPECTOR CIRCUIT BOARD INSPECTOR 7 Kayla Hart RN RN ko1 Larissa Temple cp4
[2023-06-08 13:18] VITALS: TEMP 97
[2023-06-08 13:20] VITALS: O2SAT 99
[2023-06-08 13:22] VITALS: BP 158/78
--- NOTE | 2023-06-11 12:25 | EKG ---
Test Date: 2023-06-08 Test Time: 09:11:32 Accounting Teacher: JOHNSON MEASUREMENT RESULTS: Intervals: Rate: 66 VA: 144 QRSD: 66 QT: 418 QTc: 438 [place]: P: 67 VA: 144 QRS: 46 T: 72 INTERPRETIVE STATEMENTS: Normal sinus rhythm Normal ECG Compared to ECG 07/26/2022 19:21:13 Sinus tachycardia no longer present ST (T wave) deviation no longer present Electronically Signed On 06-11-23 12:19:04 CDT by Kiran Catherine
== END 2023-06-08 13:12 | disposition home or self-care (01) ==
LOC: ER 08:44
DX: K52.9 Noninfective gastroenteritis and colitis, unspecified (principal); G30.9 Alzheimer's disease, unspecified; F02.80 Dementia in other diseases classified elsewhere, unspecified severity, without behavioral disturbance, psychotic disturbance, mood disturbance, and anxiety; J44.9 Chronic obstructive pulmonary disease, unspecified; Z88.5 Allergy status to narcotic agent
CPT/HCPCS: 85025; 36415; 84484 ×2; 83690; 80053; 74177; 71045; 96375; 96374; 99285; Q9967; J2550; J7040; 93005

== ENCOUNTER → 2023-10-27 | Emergency (ER) | payer OTHER, BC ==
[~2023-10-27] MED LIST: IBUPROFEN 400 MG TAB ONE
--- OUTSIDE RECORDS SUMMARY | 2023-10-27 09:21 | XMS REPORT | Continuity of Care Document ---
Author Name Unknown Address [address] [place] [address] [facility] thconnect Address [address] [place] [address] Care Team Providers Care Od Grinder Operator Name Role Phone PCP, PATIENT DOES NOT HAVE A Primary Care Physic padmini Unavailable ROBERTO_[email or web address]_S Attending Clinician UnavailNIECY Barber Attending Clinician Unavailab Niecy Collazo DO Attending Clinician [phone] RADIOLOGY Attending Clinician Unavailable Radiology Attending Clinician Unavailable MIKHAIL HURTADO Attending Clinician Unavailab sil MEJIA_GCBZW_Mary Kate_S Admitting Clinician UnavailNIECY Barber Admitting Clinician Unavailab MEKA Ricks Admitting Clinician Unavailable MIKHAIL HURTADO Admitting Clinician Unavailab mujica Payers Payer Name Policy Type Policy Number Effective Date Expirati on Date Source MEDICARE PART A \T\ B [id number] 2004 00:00:00 [employer] TRADITIONAL [id number] 2017 00:00:00 Problems Condition Name Condition Details Condition Category Status Onset Date Resolution Date Last Treatment Date Treating Clinician Comments Source No known active problems No known active problems Disease [facility] Allergies, Adverse Reactions, Alerts Allergy Name Allergy Type Status Severity Reaction(s) Onset Date Inactive Date Treating Clinician Comments Source CODEINE DRUG INGREDI Active N/V 09-18 00:00: 00 [facility] Codeine Propensi ty to adverse reaction s Active Nausea and/or Vomiting 09-18 00:00: 00 [facility] NO KNOWN ALLERGIE S Drug Class Active [facility] Social History Social Habit Start Date Stop Date Quantity Comments Source Exposure to SARS-CoV-2 (event) 2022-09-08 00:00:00 2022-09-18 09:01:00 Not sure [facility] Sex Assigned At 1940 00:00:00 1940 00:00:00 [facility] Smoking Status Start Date Stop Date Source Tobacco smoking consumption unknown [facility] Medications Ordered Medication Name Filled Medication Name Start Date Stop Date Current Medication? Ordering Clinician Indication Dosage Frequency Signature (SIG) Comments Components Source No known medications 09-18 09:05: 08 No No known medication s [facility] gadoteridol (PROHANCE-1 5 mL) injection 0.2 mL/kg 2019-09 21:45: 00 08-12 22:15 :00 No .2mL/kg 0.2 mL/kg, Intravenou s, ONCE, 1 dose, Leni 08/12/20 at 1545, Routine [facility] Vital Signs Vital Name Observation Time Observation Value Comments S ource Heart rate 2022-09-18 16:44:00 62 /min [facility] Respiratory rate 2022-09-18 16:44:00 20 /min [facility] Oxygen saturation in Arterial blood by Pulse oximetry 2022-09-18 16:44:00 99 /min [facility] Systolic blood pressure 2022-09-18 16:00:18 153 mm[Hg] [facility] Diastolic blood pressure 2022-09-18 16:00:18 86 mm[Hg] [facility] Body temperature 2022-09-18 15:03:00 36.89 Keesha [facility] Body height 2022-09-18 15:03:00 160 cm [facility] Body weight 2022-09-18 15:03:00 53.524 kg [facility] BMI 2022-09-18 15:03:00 20.90 kg/m2 [facility] Procedures Procedure Date / Time Performed Performing Clinicia n Source CT TRAUMA HEAD WO CONTRAST 2022-09-18 15:55:32 Niecy Ball [facility] CT TRAUMA CERVICAL SPINE WO CONTRAST 2022-09-18 15:55:32 Niecy Ball [facility] XR SHOULDER <2 VW LEFT 2022-09-18 15:40:40 Ashley Ball [facility] NOTICE OF PRIVACY PRACTICES 2022-09-18 14:59:10 Doctor Unassigned, Cornelia [facility] CONSENT/REFUSAL FOR DIAGNOSIS AND TREATMENT 2022-09-18 14:58:45 Doctor Unassigned, Cornelia [facility] MR ABDOMEN W WO CONTRAST MRCP 2020-08-12 22:16:07 Requisition, Paper [facility] NOTICE OF PRIVACY PRACTICES 2020-08-12 21:10:37 Doctor Unassigned, Cornelia [facility] CONSENT/REFUSAL FOR DIAGNOSIS AND TREATMENT 2020-08-12 21:10:07 Doctor Unassigned, Cornelia [facility] ASSIGNMENT OF BENEFITS 2020-08-12 21:09:46 Docto r Unassigned, Cornelia [facility] Encounters Start Date/Time End Date/Time Encounter Type Admission Type Attending [facility] Care Facility Care Department Encounter ID Source 2023-07-03 00:00:00 2023-07-03 00:00:00 Outpatient GC_[email or web address] diyala_S PRIV PRIV [id number] [facility] 2023-07-02 00:00:00 2023-07-02 00:00:00 Outpatient GC_[email or web address] diyala_S PRIV PRIV [id number] [facility] 2022-09-18 09:05:00 2022-09-18 10:46:00 Emergency X NIECY BALL [facility] ERT [id number] [facility] 2022-09-18 09:05:00 2022-09-18 10:46:00 Emergency Niecy Ball [facility] [id number] [facility] 2020-08-12 15:11:31 2020-08-12 23:59:00 Outpatient R RADIOLOGY [facility] [id number] [facility] 2020-08-12 15:00:00 2020-08-12 23:59:00 Hospital Encounter Radiology [facility] [id number] [facility] 2020-08-12 15:00:00 2020-08-12 23:59:00 Hospital Encounter Radiology [facility] [id number] Results Test Description Test Time Test Comments Results Result Comments Source MR ABDOMEN W WO CONTRAST MRCP 22:28:06 HISTORY: Chronic abdominal pain. TECHNIQUE: MRI studies of the abdomen were obtained [...] without and with contrast including MRCP studies. [facility] [id number] 09:33:00* Test Item Value Reference Range Interpretation Comme nts Creatinine (test code = CREA) 1.0 mg/dl 0.4-1.2 EGFR if (test code = EGFRAA) >60 mL/min/1.73m\ S\2 EGFR if Non- (test code = EGFRNA) 57 mL/min/1.73m\ S\2 Estimated Glomerular Filtration Rate (eGFR) Reference Intervals Decision Points for 18 years and older and average body mass: >= 60 Does not exclude kidney disease. 30 - 59 Suggests moderate chronic kidney disease and indicates the need for further investigation including assessment of proteinuria and cardiovascular factors. < 30 Usually indicates a need for referral for assessment and management of chronic kidney failure. [facility]
--- NOTE | 2023-10-27 10:06 | EDPHYS ---
Physician Documentation [facility] Name: Milan Weir Age: 83 yrs Sex: Female : 1940 Arrival Date: 10/27/2023 Time: 09:18 Bed 17 Private MD: Burak Pino K ED Physician Jas Villanueva HPI: 10/27 09:38 This 83 yrs old Female presents to ER via Ambulatory with complaints of R hearing loss, jh7 Ear Pain, ear numbness. 09:38 Onset: The symptoms/episode began/occurred 2 day(s) ago. Associated signs and symptoms: jh7 Pertinent positives: earache, Pertinent negatives: abdominal pain, chest pain, headache, nasal discharge, shortness of breath, sore throat, vomiting. Patient complains of right ear pain, right hearing loss, and numbness around the ear for the past 2 days. Reports that the ear pain has kept her up at night. Denies speech difficulty, weakness on one side of the body, visual changes, vomiting, or any other symptoms at this time.. Historical: - Allergies: 09:38 Codeine; hb 09:38 Tylenol-Codeine; hb - PMHx: 09:38 Alzheimers; COPD; Hernia; Pancreatitis; hb - PSHx: 09:38 Adenoid excision; Appendectomy; breast implants; Cholecystectomy; double masectomy; hb stomach surgery to prevent vomiting; Tonsillectomy; Total abdominal hysterectomy; - Immunization history:: Adult Immunizations up to date. - Social history:: Smoking status: Patient denies any tobacco usage or history of. ROS: 09:38 Constitutional: Negative for fever, chills, and weight loss, Neck: Negative for injury, jh7 pain, and swelling, Cardiovascular: Negative for chest pain, palpitations, and edema, Respiratory: Negative for shortness of breath, cough, wheezing, and pleuritic chest pain, MS/Extremity: Negative for injury and deformity, Skin: Negative for injury, rash, and discoloration, Neuro: Negative for headache, weakness, numbness, tingling, and seizure, 09:38 ENT: Positive for ear pain, hearing loss, 09:38 All other systems are negative, Exam: 09:38 Constitutional: This is a well developed, well nourished patient who is awake, alert, jh7 and in no acute distress. Head/Face: Normocephalic, atraumatic. Neck: Trachea midline, no thyromegaly or masses palpated, and no cervical lymphadenopathy. Supple, full range of motion without nuchal rigidity, or vertebral point tenderness. No Meningismus. Cardiovascular: Regular rate and rhythm with a normal S1 and S2. No gallops, murmurs, or rubs. Normal PMI, no JVD. No pulse deficits. Respiratory: Lungs have equal breath sounds bilaterally, clear to auscultation and percussion. No rales, rhonchi or wheezes noted. No increased work of breathing, no retractions or nasal flaring. Abdomen/GI: Soft, non-tender, with normal bowel sounds. No distension or tympany. No guarding or rebound. No evidence of tenderness throughout. Skin: Warm, dry with normal turgor. Normal color with no rashes, no lesions, and no evidence of cellulitis. MS/ Extremity: Pulses equal, no cyanosis. Neurovascular intact. Full, normal range of motion. Neuro: Awake and alert, GCS 15, oriented to person, place, time, and situation. Cranial nerves II-XII grossly intact. Motor strength 5/5 in all extremities. Sensory grossly intact. Cerebellar exam normal. Normal gait. 09:38 ENT: External ear(s): are unremarkable, Ear canal(s): cerumen impaction, that is moderate, occluding the right ear canal, TM's: not visable, because of cerumen, Vital Signs: 09:36 BP 138 / 98; Pulse 88; Resp 20; Temp 97.3(TE); Pulse Ox 100% on R/A; Pain 7/10; hb 09:36 Pain Scale: Adult hb Procedures: 09:38 Ear irrigation: Route right ear with Normal Saline amount 250ml Patient tolerated well. 7 MDM: 09:25 Patient medically screened. [facility] 10:05 Differential diagnosis: Otitis media, otitis externa, cerumen impaction, eustachian jh7 tube dysfunction, otitis media effusion. 10:05 Data reviewed: vital signs, nurses notes. I considered the following discharge [facility] prescriptions or medication management in the emergency department Medications were administered in the Emergency Department. See MAR. Care significantly affected by the following chronic conditions: Chronic Obstructive Pulmonary Disease. Counseling: I had a detailed discussion with the patient and/or guardian regarding the historical points, exam findings, and any diagnostic results supporting the discharge/admit diagnosis, to return to the emergency department if symptoms worsen or persist or if there are any questions or concerns that arise at home. Response to treatment: the patient's symptoms have markedly improved after treatment. ED course: After the right ear was irrigated, noticed to that the TM was dull with fluid present. Advised the patient to take Zyrtec at home and agreed to give a short prednisone burst for pain. PCP follow-up advised.. 10/27 09:[facility]: [facility]ate R ear; Complete Time: 10:04 jh7 Administered Medications: 10:14 Drug: Ibuprofen PO 400 mg PO once Route: PO; kc6 Disposition: 10:17 Co-signature as Attending Physician, Jas Villanueva MD I agree with the assessment and kdr plan of care. Disposition Summary: 10/27/23 10:05 Discharge Ordered Notes: Location: Home [facility] Problem: new jh7 Symptoms: have improved jh7 Condition: Stable jh7 Diagnosis - Impacted cerumen, right ear jh7 Followup: [facility] - With: Private Physician - When: 2 - 3 days - Reason: Recheck today's complaints Discharge Instructions: - Discharge Summary Sheet 7 - Earwax Buildup, Adult 7 - Ear Irrigation [facility] Forms: - Medication Reconciliation Form 7 - Thank You Letter [facility] - Patient Portal Instructions [facility] - Leadership Thank You Letter [facility] Prescriptions: - Prednisone 20 mg Oral Tablet - take 2 tablets ORAL route once daily for 5 days; 10 tablet; Refills: 0, Product 7 Selection Permitted Signatures: Jas Villanueva MD MD [facility] Richa Hathaway RN RN Dariana Tellez FNP LOOM CHECKER jh7 Pamela Aaron RN RN kc6 Corrections: (The following items were deleted from the chart) 10:07 09:38 This 83 yrs old Female presents to ER via Ambulatory with complaints of R hearing jh7 loss, Ear Pain, ear numbness. jh7 10: 09:38 ENT: External ear(s): are unremarkable, Ear canal(s): cerumen impaction, that is jh7 moderate, occluding the right ear canal, TM's: not visable, because of cerumen, jh7 10:10 09:38 Differential diagnosis: Otitis media, otitis externa, cerumen impaction, jh7 eustachian tube dysfunction, otitis media effusion jh7
--- NOTE | 2023-10-27 10:06 | ER ---
Nurse's Notes [facility] Name: Milan Weir Age: 83 yrs Sex: Female : 1940 Arrival Date: 10/27/2023 Time: 09:18 Bed 17 Private MD: Burak Pino K Diagnosis: Impacted cerumen, right ear Presentation: 10/27 09:36 Chief complaint: Right ear pain that radiates to face x 2 days. Coronavirus screen: At this time, the client does not indicate any symptoms associated with coronavirus-19. Ebola Screen: No symptoms or risks identified at this time. Initial Sepsis Screen: Does the patient meet any 2 criteria? No. Patient's initial sepsis screen is negative. Does the patient have a suspected source of infection? No. Patient's initial sepsis screen is negative. Risk Assessment: Do you want to hurt yourself or someone else? Patient reports no desire to harm self or others. Onset of symptoms was October 25, 2023. 09:36 Acuity: JARRETT 4 hb 09:36 Method Of Arrival: Ambulatory Triage Assessment: 09:38 General: Appears in no apparent distress. Behavior is calm. Pain: Pain currently is 7 hb out of 10 on a pain scale. EENT: Reports right ear pain with loss of hearing. Historical: - Allergies: 09:38 Codeine; hb 09:38 Tylenol-Codeine; hb - PMHx: 09:38 Alzheimers; COPD; Hernia; Pancreatitis; hb - PSHx: 09:38 Adenoid excision; Appendectomy; breast implants; Cholecystectomy; double masectomy; hb stomach surgery to prevent vomiting; Tonsillectomy; Total abdominal hysterectomy; - Immunization history:: Adult Immunizations up to date. - Social history:: Smoking status: Patient denies any tobacco usage or history of. Screenin:04 [facility] ED Fall Risk Assessment (Adult) History of falling in the last 3 months, kc6 including since admission No falls in past 3 months (0 pts) Confusion or Disorientation No (0 pts) Intoxicated or Sedated No (0 pts) Impaired Gait No (0 pts) Mobility Assist Device Used No (0 pt) Altered Elimination No (0 pt) Score/Fall Risk Level 0 - 2 = Low Risk. Abuse screen: Denies threats or abuse. Denies injuries from another. Nutritional screening: No deficits noted. Tuberculosis screening: No symptoms or risk factors identified. Assessment: 10:04 General: Appears in no apparent distress. comfortable, well groomed, well developed, kc6 Behavior is calm, cooperative, appropriate for age. Pain: Complains of pain in right ear. Neuro: Level of Consciousness is awake, alert, obeys commands, Oriented to person, place, time, situation, Appropriate for age. Cardiovascular: Capillary refill < 3 seconds. Respiratory: Airway is patent Trachea midline Respiratory effort is even, unlabored, Respiratory pattern is regular, symmetrical. GI: No signs and/or symptoms were reported involving the gastrointestinal system. : No signs and/or symptoms were reported regarding the genitourinary system. EENT: No signs and/or symptoms were reported regarding the EENT system. Derm: No signs and/or symptoms reported regarding the dermatologic system. Skin is intact, is healthy with good turgor, Skin is pink, warm \T\ dry. Musculoskeletal: No signs and/or symptoms reported regarding the musculoskeletal system. Circulation, motion, and sensation intact. Capillary refill < 3 seconds, Range of motion: intact in all extremities. Vital Signs: 09:36 BP 138 / 98; Pulse 88; Resp 20; Temp 97.3(TE); Pulse Ox 100% on R/A; Pain 7/10; hb 09:36 Pain Scale: Adult hb ED Course: 09:21 Patient arrived in ED. rg4 09:21 Burak Pino MD is Private Physician. rg4 09:24 Dariana Tellez FNP is [facility]. jh7 09:24 Jas Villanueva MD is Attending Physician. jh7 09:37 Triage completed. hb 09:38 Arm band placed on. hb 09:40 aPmela Aaron RN is Primary Nurse. kc6 10:04 Patient has correct armband on for positive identification. Bed in low position. Call kc6 light in reach. Side rails up X 1. Client placed on continuous cardiac and pulse oximetry monitoring. NIBP monitoring applied. 10:04 Patient maintains SpO2 saturation greater than 95% on room air. Ear irrigation: Route kc6 right ear with Normal Saline amount 250ml Patient tolerated well. 10:14 No provider procedures requiring assistance completed. Patient did not have IV access kc6 during this emergency room visit. Administered Medications: 10:14 Drug: Ibuprofen PO 400 mg PO once Route: PO; kc6 Medication: 10:15 VIS not applicable for this client. kc6 Outcome: 10:05 Discharge ordered by . didi7 10:14 Discharged to home ambulatory, kc6 10:14 Condition: stable 10:14 Discharge instructions given to patient, Instructed on discharge instructions, follow up and referral plans. medication usage, Demonstrated understanding of instructions, follow-up care, medications, Prescriptions given X 1, 10:15 Patient left the ED. kc6 Signatures: Richa Hathaway, RN RN Mary Wei rg4 Dariana Tellez, AUTOMOTIVE SERVICE ADVISOR AUTOMOTIVE SERVICE ADVISOR jh7 Pamela Aaron RN RN kc6
[2023-10-27 10:28] VITALS: BP 138/98; TEMP 97.3; O2SAT 100
== END ==
LOC: ER 09:18
DX: H61.21 Impacted cerumen, right ear (principal); Z88.5 Allergy status to narcotic agent; Z98.82 Breast implant status
CPT/HCPCS: 99284

== ENCOUNTER 2023-11-01 09:29 | Observation (INO) | payer OTHER, BC ==
--- OUTSIDE RECORDS SUMMARY | 2023-11-01 09:32 | XMS REPORT | Continuity of Care Document ---
Author Name Unknown Address [address] [place] [address] [facility] thconnect Address [address] [place] [address] Care Team Providers Care Lead Consultant Name Role Phone PCP, PATIENT DOES NOT HAVE A Primary Care Physic padmini Unavailable [email or web address]_S Attending Clinician UnavailNIECY Barber Attending Clinician Unavailab Niecy Collazo DO Attending Clinician [phone] RADIOLOGY Attending Clinician Unavailable Radiology Attending Clinician Unavailable MIKHAIL HURTADO Attending Clinician Unavailab sil MEJIA_GCBZW_Mary Kate_S Admitting Clinician UnavailNIECY Barber Admitting Clinician Unavailab MEKA Ricks Admitting Clinician Unavailable MIKHAIL HURTADO Admitting Clinician Unavailab mujica Payers Payer Name Policy Type Policy Number Effective Date Expirati on Date Source MEDICARE PART A \T\ B [id number] 2004 00:00:00 [employer] TRADITIONAL [id number] 2017 00:00:00 Problems Condition Name Condition Details Condition Category Status Onset Date Resolution Date Last Treatment Date Treating Clinician Comments Source No known active problems No known active problems Disease [facility] Allergies, Adverse Reactions, Alerts Allergy Name Allergy Type Status Severity Reaction(s) Onset Date Inactive Date Treating Clinician Comments Source CODEINE DRUG INGREDI Active N/V 09-18 00:00: 00 [facility] Codeine Propensi ty to adverse reaction s Active Nausea and/or Vomiting 09-18 00:00: 00 [facility] NO KNOWN ALLERGIE S Drug Class Active [facility] Social History Social Habit Start Date Stop Date Quantity Comments Source Exposure to SARS-CoV-2 (event) 2022-09-08 00:00:00 2022-09-18 09:01:00 Not sure [facility] Sex Assigned At 1940 00:00:00 1940 00:00:00 [facility] Smoking Status Start Date Stop Date Source Tobacco smoking consumption unknown [facility] Medications Ordered Medication Name Filled Medication Name Start Date Stop Date Current Medication? Ordering Clinician Indication Dosage Frequency Signature (SIG) Comments Components Source No known medications 09-18 09:05: 08 No No known medication s [facility] gadoteridol (PROHANCE-1 5 mL) injection 0.2 mL/kg 2019-09 21:45: 00 08-12 22:15 :00 No .2mL/kg 0.2 mL/kg, Intravenou s, ONCE, 1 dose, Leni 08/12/20 at 1545, Routine [facility] Vital Signs Vital Name Observation Time Observation Value Comments S ource Heart rate 2022-09-18 16:44:00 62 /min [facility] Respiratory rate 2022-09-18 16:44:00 20 /min [facility] Oxygen saturation in Arterial blood by Pulse oximetry 2022-09-18 16:44:00 99 /min [facility] Systolic blood pressure 2022-09-18 16:00:18 153 mm[Hg] [facility] Diastolic blood pressure 2022-09-18 16:00:18 86 mm[Hg] [facility] Body temperature 2022-09-18 15:03:00 36.89 Keesha [facility] Body height 2022-09-18 15:03:00 160 cm [facility] Body weight 2022-09-18 15:03:00 53.524 kg [facility] BMI 2022-09-18 15:03:00 20.90 kg/m2 [facility] Procedures Procedure Date / Time Performed Performing Clinicia n Source CT TRAUMA HEAD WO CONTRAST 2022-09-18 15:55:32 Niecy Ball [facility] CT TRAUMA CERVICAL SPINE WO CONTRAST 2022-09-18 15:55:32 Niecy Ball [facility] XR SHOULDER <2 VW LEFT 2022-09-18 15:40:40 Ashley Ball [facility] NOTICE OF PRIVACY PRACTICES 2022-09-18 14:59:10 Doctor Unassigned, [place] [facility] CONSENT/REFUSAL FOR DIAGNOSIS AND TREATMENT 2022-09-18 14:58:45 Doctor Unassigned, [place] [facility] MR ABDOMEN W WO CONTRAST MRCP 2020-08-12 22:16:07 Requisition, Paper [facility] NOTICE OF PRIVACY PRACTICES 2020-08-12 21:10:37 Doctor Unassigned, [place] [facility] CONSENT/REFUSAL FOR DIAGNOSIS AND TREATMENT 2020-08-12 21:10:07 Doctor Unassigned, [place] [facility] ASSIGNMENT OF BENEFITS 2020-08-12 21:09:46 Docto r Unassigned, [place] [facility] Encounters Start Date/Time End Date/Time Encounter Type Admission Type Attending [facility] Care Facility Care Department Encounter ID Source 2023-07-03 00:00:00 2023-07-03 00:00:00 Outpatient [email or web address] diyala_S PRIV PRIV [id number] [facility] 2023-07-02 00:00:00 2023-07-02 00:00:00 Outpatient [email or web address] diyala_S PRIV PRIV [id number] [facility] 2022-09-18 09:05:00 2022-09-18 10:46:00 Emergency X NIECY BALL [facility] ERT [id number] [facility] 2022-09-18 09:05:00 2022-09-18 10:46:00 Emergency Niecy Ball [facility] [id number] [facility] 2020-08-12 15:11:31 2020-08-12 23:59:00 Outpatient R [facility]OLOGY [facility] [id number] [facility] 2020-08-12 15:00:00 2020-08-12 23:59:00 Hospital Encounter Radiology [facility] [id number] [facility] 2020-08-12 15:00:00 2020-08-12 23:59:00 Hospital Encounter Radiology [facility] [id number] Results Test Description Test Time Test Comments [...] without and with contrast including MRCP studies. Pamb, Radiant Results Inft User - 08/12/2020 4:29 [...] without and with contrast including MRCP studies. [facility] [id number] 09:33:00* Test Item Value Reference Range Interpretation [...] assessment and management of chronic kidney failure. [facility]
[2023-11-01] MEDS ORDERED: NITROGLYCERIN 0.4 MG/TAB SL ONE (09:46)
[2023-11-01] MEDS ORDERED: ASPIRIN 81 MG CHEWABLE TABLET ONE (09:46)
[2023-11-01 10:08] LABS: Absolute Lymphocytes (CBC) 3.1 K/uL (0.7-4.9); Hematocrit 41.1 % (36.0-45.0); Lymphocytes % 27.9 % (15.3-44.8); MCV 88.2 fL (80-100); MPV 7.6 fL (7.6-11.3); Platelets 266 thou/uL (152-406); RBC Red Blood Cell Count 4.66 M/uL (3.86-4.86)
[2023-11-01 10:46] LABS: Albumin 2.9 g/dL (3.4-5.0); Bilirubin Direct 0.1 mg/dL (0-0.2); Bilirubin Indirect, Calculated 0.4 mg/dL (0.2-0.8); Bilirubin Total 0.5 mg/dL (0.2-1.0); Magnesium 1.8 mg/dL (1.6-2.4); Potassium 2.7 mEq/L (3.5-5.1); Protein, Total 5.8 g/dL (6.4-8.2); Troponin High Sensitivity 8.6 pg/mL (<58.9)
--- NOTE | 2023-11-01 10:58 | RAD REPORT ---
[facility] am CLINICAL HISTORY: CHEST PAIN COMPARISON: Chest Single View dated 10/13/2023; Chest Single View dated 06/08/2023; Chest Single View dated 07/26/2022; Chest Single View dated 04/14/2022 TECHNIQUE: Portable AP view of the chest. FINDINGS: Left chest wall medication port unchanged in position. The lungs are clear. No pneumothor ax or effusion. The cardiomediastinal contours are unremarkable. IMPRESSION: No acute cardiopulmonary process.
--- NOTE | 2023-11-01 11:18 | ER ---
Nurse's Notes [facility] Name: Milan Weir Age: 83 yrs Sex: Female : 1940 Arrival Date: 11/01/2023 Time: : Bed 2 Private MD: Burak Pino K Diagnosis: Chest pain, unspecified;Hypokalemia Presentation: 09:40 Chief complaint: Sudden onset midsternal chest pain that radiates to bilateral jaw that hb started while sitting in chair doing crossword puzzle just [employer]. Also c/o SOB and nausea. Coronavirus screen: At this time, the client does not indicate any symptoms associated with coronavirus-19. Ebola Screen: No symptoms or risks identified at this time. Initial Sepsis Screen: Does the patient meet any 2 criteria? RR > 20 per min. No. Patient's initial sepsis screen is negative. Does the patient have a suspected source of infection? No. Patient's initial sepsis screen is negative. Risk Assessment: Do you want to hurt yourself or someone else? Patient reports no desire to harm self or others. Onset of symptoms was November 01, 2023. 09:40 Method Of Arrival: Ambulatory hb 09:40 Acuity: JARRETT 2 hb Triage Assessment: 09:41 General: Appears in no apparent distress. uncomfortable, Behavior is calm, cooperative. hb Pain: Pain currently is 8 out of 10 on a pain scale. Neuro: Level of Consciousness is awake, alert, obeys commands, Oriented to person, place, time, situation. Cardiovascular: Patient's skin is warm and dry. Rhythm is regular. Respiratory: Reports shortness of breath Respiratory effort is even, unlabored, Respiratory pattern is regular, symmetrical. GI: Reports nausea. Historical: - Allergies: 09:41 Codeine; hb 09:41 Tylenol-Codeine; hb - PMHx: 09:41 Alzheimers; COPD; Hernia; Pancreatitis; hb - PSHx: 09:41 Adenoid excision; Appendectomy; breast implants; Cholecystectomy; double masectomy; hb stomach surgery to prevent vomiting; Tonsillectomy; Total abdominal hysterectomy; - Immunization history:: Adult Immunizations up to date. - Social history:: Smoking status: Patient denies any tobacco usage or history of. Screenin:51 [facility] ED Fall Risk Assessment (Adult) History of falling in the last 3 months, mb9 including since admission No falls in past 3 months (0 pts) Confusion or Disorientation No (0 pts) Intoxicated or Sedated No (0 pts) Impaired Gait No (0 pts) Mobility Assist Device Used No (0 pt) Altered Elimination No (0 pt) Score/Fall Risk Level 0 - 2 = Low Risk Oriented to surroundings, Maintained a safe environment, Educated pt \T\ family on fall prevention, incl call for assistance when getting out of bed. Abuse screen: Denies threats or abuse. Nutritional screening: No deficits noted. Tuberculosis screening: No symptoms or risk factors identified. Assessment: 09:49 General: Appears uncomfortable, Behavior is calm, cooperative. Pain: Complains of pain mb9 in chest Pain radiates to jaw Pain currently is 8 out of 10 on a pain scale. Quality of pain is described as throbbing, Pain began suddenly, Is continuous, Aggravated by increased activity, repositioning, weight bearing. Neuro: Ramirez Agitation-Sedation Scale (RASS): 0 - Alert and Calm Level of Consciousness is awake, alert, obeys commands, Oriented to person, place, time, situation, Appropriate for age. Cardiovascular: Reports chest pain, lightheadedness, nausea, shortness of breath, Heart tones S1 S2 present Patient's skin is warm and dry. Pulses are all present. Rhythm is regular. Respiratory: Reports shortness of breath at rest Airway is patent Respiratory effort is even, unlabored, Respiratory pattern is regular, symmetrical, Breath sounds are clear bilaterally. GI: Abdomen is flat, non-distended, Bowel sounds present X 4 quads. Abd is soft and non tender X 4 quads. Reports nausea. : No signs and/or symptoms were reported regarding the genitourinary system. EENT: No signs and/or symptoms were reported regarding the EENT system. Derm: Skin is pink, warm \T\ dry. Musculoskeletal: Range of motion: intact in all extremities. 10:59 Reassessment: Patient and/or family updated on plan of care and expected duration. Pain mb9 level reassessed. Patient is alert, oriented x 3, equal unlabored respirations, skin warm/dry/pink. Patient states feeling better. Patient states symptoms have improved. 11:45 Reassessment: No changes from previously documented assessment. Patient and/or family mb9 updated on plan of care and expected duration. Pain level reassessed. Patient is alert, oriented x 3, equal unlabored respirations, skin warm/dry/pink. 12:30 Reassessment: No changes from previously documented assessment. Patient and/or family mb9 updated on plan of care and expected duration. Pain level reassessed. Patient is alert, oriented x 3, equal unlabored respirations, skin warm/dry/pink. Vital Signs: 09:40 BP 163 / 101; Pulse 67; Resp 24; Temp 98.3; Pulse Ox 100% on R/A; Weight 52.62 kg; hb Height 5 ft. 4 in. ; Pain 8/10; 10:01 BP 119 / 68; Pulse 80; Resp 14; Pulse Ox 95% on R/A; Pain 0/10; mb9 10:24 BP 131 / 78; Pulse 64; Resp 15; Pulse Ox 97% ; ko1 10:59 BP 126 / 79; Pulse 63; Resp 18; Pulse Ox 97% on R/A; Pain 0/10; mb9 11:45 BP 136 / 78; Pulse 62; Resp 18; Pulse Ox 97% on R/A; mb9 09:40 Body Mass Index 19.91 (52.62 kg, 162.56 cm) hb 09:40 Pain Scale: Adult hb 10:01 Pain Scale: Adult mb9 10:59 Pain Scale: Adult mb9 ED Course: 09:30 Patient arrived in ED. rg4 09:30 Chace Sepulveda MD is Attending Physician. rt 09:31 Burak Pino MD is Private Physician. rg4 09:40 EKG completed in triage. Results shown to MD. hb 09:41 Triage completed. hb 09:41 Arm band placed on left wrist. hb 09:42 Client placed on continuous cardiac and pulse oximetry monitoring. NIBP monitoring hb applied. filter changer on. Pulse ox on. NIBP on. 09:42 EKG done, by ED staff, reviewed by Chace Sepulveda MD. Patient maintains SpO2 hb saturation greater than 95% on room air. 09:49 Ivonne Damian RN is Primary Nurse. mb9 09:51 Placed in gown. Bed in low position. Call light in reach. Side rails up X 1. mb9 09:59 Initial lab(s) drawn, by ED staff, sent to lab. ko1 10:00 Missed attempt(s): 22 gauge in right forearm. Bleeding controlled, band aid applied, mb9 catheter tip intact. 10:02 No provider procedures requiring assistance completed. Inserted saline lock: 24 gauge mb9 in left forearm, using aseptic technique. 10:06 Door closed. Noise minimized. Lights dimmed. Warm blanket given. Verbal reassurance ko1 given. 10:08 XRAY Chest (1 view) In Process Unspecified. EDMS 11:17 Dagoberto Ramon MD is Hospitalizing Provider. rt 11:46 Patient admitted, IV remains in place. mb9 12:00 Assisted to bathroom. ko1 12:43 Provided Education on: na. ko1 Administered Medications: 09:45 Drug: Nitroglycerin Sublingual 0.4 mg Sublingual once; every five minute if needed x3 mb9 Route: Sublingual; 12:30 Follow up: Response: No adverse reaction mb9 09:48 Drug: Aspirin PO Chewable Tablet 324 mg PO once; 81 mg tablets x 4 Route: PO; mb9 10:02 Follow up: Response: No adverse reaction mb9 11:23 Drug: Potassium Chloride PO Liquid 40 mEq PO once Route: PO; mb9 12:29 Follow up: Response: No adverse reaction mb9 Medication: 09:51 VIS not applicable for this client. mb9 Outcome: 11:17 Decision to Hospitalize by Provider. rt 12:00 Instructed on the need for admit, Demonstrated understanding of ko1 12:45 Condition: stable ko1 12:45 Admitted to Tele accompanied by tech, via wheelchair, room 216, with chart, Report ko1 called to faxed and followed up with Pat 12:49 Patient left the ED. ko1 Signatures: Dispatcher [employer] EDCA Richa Hathaway RN RN hb Garcia, Rubi rg4 Kayla Hart RN RN ko1 Ivonne Damian RN RN [email or web address] Chace Sepulveda MD MD rt Corrections: (The following items were deleted from the chart) 12:45 12:00 Admitted to Tele accompanied by tech, via wheelchair, room 216, with chart, ko1 Report called to faxed and followed up with Pat koDevika 12:45 12:00 Condition: stable ko1 ko1
--- NOTE | 2023-11-01 11:19 | EDPHYS ---
Physician Documentation [facility] Name: Milan Weir Age: 83 yrs Sex: Female : 1940 Arrival Date: 11/01/2023 Time: : Bed 2 Private MD: Burak Pino K ED Physician Chace Sepulveda HPI: 09:42 This 83 yrs old Female presents to ER via Ambulatory with complaints of Nausea, Chest rt Pain, Jaw Pain. 09:42 Patient presents to the ED with chest pain, substernal rating to the jaw started about rt 45 minutes prior to arrival. She has associated nausea and shortness of breath. Denies other acute complaints. Symptoms are moderate in severity, no other aggravating relieving factors. The pain started at rest.. Historical: - Allergies: 09:41 Codeine; hb 09:41 Tylenol-Codeine; hb - PMHx: 09:41 Alzheimers; COPD; Hernia; Pancreatitis; hb - PSHx: 09:41 Adenoid excision; Appendectomy; breast implants; Cholecystectomy; double masectomy; hb stomach surgery to prevent vomiting; Tonsillectomy; Total abdominal hysterectomy; - Immunization history:: Adult Immunizations up to date. - Social history:: Smoking status: Patient denies any tobacco usage or history of. ROS: 09:42 Constitutional: Negative for fever, chills, and weight loss, MS/Extremity: Negative for rt injury and deformity, Skin: Negative for injury, rash, and discoloration, Neuro: Negative for headache, weakness, numbness, tingling, and seizure, Psych: Negative for depression, anxiety, suicide ideation, homicidal ideation, and hallucinations, 09:42 Cardiovascular: Positive for chest pain, Negative for edema, 09:42 Respiratory: Positive for shortness of breath, Negative for cough, 09:42 Abdomen/GI: Positive for nausea, Negative for abdominal pain, vomiting, Exam: :42 Constitutional: This is a well developed, well nourished patient who is awake, alert, rt and in no acute distress. Head/Face: Normocephalic, atraumatic. Chest/axilla: Normal chest wall appearance and motion. Nontender with no deformity. No lesions are appreciated. Cardiovascular: Regular rate and rhythm with a normal S1 and S2. No gallops, murmurs, or rubs. Normal PMI, no JVD. No pulse deficits. Respiratory: Lungs have equal breath sounds bilaterally, clear to auscultation and percussion. No rales, rhonchi or wheezes noted. No increased work of breathing, no retractions or nasal flaring. Abdomen/GI: Soft, non-tender, with normal bowel sounds. No distension or tympany. No guarding or rebound. No evidence of tenderness throughout. Skin: Warm, dry with normal turgor. Normal color with no rashes, no lesions, and no evidence of cellulitis. MS/ Extremity: Pulses equal, no cyanosis. Neurovascular intact. Full, normal range of motion. Neuro: Awake and alert, GCS 15, oriented to person, place, time, and situation. Cranial nerves II-XII grossly intact. Motor strength 5/5 in all extremities. Sensory grossly intact. Cerebellar exam normal. Normal gait. Psych: Awake, alert, with orientation to person, place and time. Behavior, mood, and affect are within normal limits. 09:42 ECG was reviewed by the Attending Physician. Vital Signs: 09:40 BP 163 / 101; Pulse 67; Resp 24; Temp 98.3; Pulse Ox 100% on R/A; Weight 52.62 kg; hb Height 5 ft. 4 in. ; Pain 8/10; 10:01 BP 119 / 68; Pulse 80; Resp 14; Pulse Ox 95% on R/A; Pain 0/10; mb9 10:24 BP 131 / 78; Pulse 64; Resp 15; Pulse Ox 97% ; ko1 10:59 BP 126 / 79; Pulse 63; Resp 18; Pulse Ox 97% on R/A; Pain 0/10; mb9 11:45 BP 136 / 78; Pulse 62; Resp 18; Pulse Ox 97% on R/A; mb9 09:40 Body Mass Index 19.91 (52.62 kg, 162.56 cm) hb 09:40 Pain Scale: Adult hb 10:01 Pain Scale: Adult mb9 10:59 Pain Scale: Adult mb9 MDM: 09:33 Patient medically screened. rt 11:18 Differential diagnosis: Aspect chest pain, ACS, stable angina, hypokalemia. Data rt reviewed: vital signs, nurses notes, lab test result(s), EKG, radiologic studies. Consideration of Admission/Observation Patient was admitted/placed on observation. Management of patient was discussed with the following: Hospitalist: Agrees to admit. I considered the following discharge prescriptions or medication management in the emergency department Medications were administered in the Emergency Department. See MAR. Independent interpretation of the following test(s) in the Emergency Department X-Ray: My interpretation is No consolidations, seen on my interpretation of x-ray images. Test considered but Not performed: CT: Low suspicion for PE, CT angiogram not dictated. Care significantly affected by the following chronic conditions: Chronic Obstructive Pulmonary Disease. Counseling: I had a detailed discussion with the patient and/or guardian regarding the historical points, exam findings, and any diagnostic results supporting the discharge/admit diagnosis, lab results, radiology results, the need for further work-up and treatment in the hospital. Response to treatment: the patient's symptoms have markedly improved after treatment. 09:40 Order name: Basic Metabolic Panel; Complete Time: 10:49 rt 09:40 Order name: CBC with Diff; Complete Time: 10:49 09:40 Order name: LFT's; Complete Time: : 09:40 Order name: Magnesium; Complete Time: 10:49 rt 09:40 Order name: Troponin HS; Complete Time: 10:49 11:35 Order name: Lipase; Complete Time: 11:52 la1 09:40 Order name: XRAY Chest (1 view); Complete Time: 11:03 rt 09:40 Order name: EKG; Complete Time: 09:40 09:40 Order name: Cardiac monitoring; Complete Time: :44 09:40 Order name: EKG - Nurse/Tech; Complete Time: :44 rt 09:40 Order name: IV Saline Lock; Complete Time: :59 rt 09:40 Order name: Labs collected and sent; Complete Time: :59 09:40 Order name: O2 Per Protocol; Complete Time: :44 09:40 Order name: O2 Sat Monitoring; Complete Time: 10:14 Order name: Labs - recollect needed: green top; Complete Time: 10:20 ds4 EC:42 Rate is 63 beats/min. Rhythm is regular, Normal Sinus Rhythm with No ectopy. QRS [place] rt is Normal. LA interval is normal. QRS interval is normal. QT interval is normal. No Q waves. T waves are Normal. No ST changes noted. Interpreted by me. Administered Medications: 09:45 Drug: Nitroglycerin Sublingual 0.4 mg Sublingual once; every five minute if needed x3 mb9 Route: Sublingual; 12:30 Follow up: Response: No adverse reaction mb9 09:48 Drug: Aspirin PO Chewable Tablet 324 mg PO once; 81 mg tablets x 4 Route: PO; mb9 10:02 Follow up: Response: No adverse reaction mb9 11:23 Drug: Potassium Chloride PO Liquid 40 mEq PO once Route: PO; mb9 12:29 Follow up: Response: No adverse reaction mb9 Disposition Summary: 11/01/23 11:17 Hospitalization Ordered Notes: Hospitalization Status: Observation rt Provider: Dagoberto Ramon rt Condition: Stable rt Problem: new rt Symptoms: have improved rt Bed/Room Type: Standard rt Location: Telemetry/MedSurg (Inpatient)(11/01/23 11:59) ds4 Room Assignment: 216(11/01/23 11:59) ds4 Diagnosis - Chest pain, unspecified rt - Hypokalemia rt Forms: - Medication Reconciliation Form rt - SBAR form rt - Leadership Thank You Letter rt Signatures: Dispatcher [employer] TRUPTI HallYusuf namovan ds4 Richa Hathaway RN RN Ivonne Damian RN RN mb9 Chace Sepulveda MD MD rt Corrections: (The following items were deleted from the chart) 11:17 Telemetry/MedSurg (observation) rt ds4 59 11:17 rt ds4
[2023-11-01] MEDS ORDERED: POTASSIUM CL SA 10 MEQ TAB PO ONE (11:21)
[2023-11-01 13:01] VITALS: BP 136/78; TEMP 98.3; O2SAT 97
[2023-11-01] MEDS ORDERED: MORPHINE 2 MG/ML SYR IV PRN (13:16)
--- NOTE | 2023-11-01 14:08 | P.HP ---
Certification for Inpatient Patient admitted to: Observation With expected LOS: <2 Midnights Patient will require the following post-hospital care: None Practitioner: I am a practitioner with admitting privileges, knowledge of patient current condition, hospital course, and medical plan of care. Services: Services provided to patient in accordance with Admission requirements found in Title 42 Section 412.3 of the Code of Federal Regulations Patient History Date of Service: 11/01/23 Reason for admission: Chest pain History of Present Illness: 83-year-old female with history of COPD, chronic pain, Alzheimer's, liver cirrhosis presents to the emergency department chief complaint of chest pain rating to her jaw with associated nausea. She reports the pain began while at home doing a crossword puzzle and was relieved in the emergency department with nitroglycerin. She was evaluated in the emergency department EKG is without STEMI criteria initial high-sensitivity opponent was 8.6 potassium was 2.7 lipase within normal limits chest negative for acute findings. ED provider wishes to admit under observation for ACS rule out. Patient denies any previous cardiac evaluation, was seen by cardiology here during her stay in the emergency department. Allergies codeine Allergy (Verified 11/01/23 13:19) Nausea/Vomiting acetaminophen [From Tylenol] Adverse Reaction (Verified 11/01/23 13:19) Nausea/Vomiting tramadol Adverse Reaction (Verified 11/01/23 13:19) Nausea/Vomiting Home Medications: Promethazine Tab [Phenergan*] 25 mg PO Q12H PRN #10 tab 01/25/21 Melatonin 1 tab PO BEDTIME 07/27/22 Meperidine HCl [Demerol*] 25 mg PO PRN PRN 07/27/22 Omeprazole 1 cap PO DAILY 07/27/22 predniSONE [Prednisone*] 20 mg PO BID 5 Days #10 tab 07/28/22 - Past Medical/Surgical History Has patient received pneumonia vaccine in the past: Yes Diabetic: No -: COPD -: Alzheimer's disease -: pancreatitis -: liver cirrhosis -: kidney disease -: bladder -: tonsilectomy -: appendectomy -: double mastectomy with reconstruction -: cholecystectomy -: gall bladder removed 2002 -: abdominal surgery Psychosocial/ Personal History: Lives at home with her daughter - Family History Mother Notes: ALZHEIMERS Brother -: GI disease Notes: internal bleeding - Social History Smoking Status: Former smoker Alcohol use: No CD- Drugs: No Caffeine use: Yes Place of Residence: Home Review of Systems 10-point ROS is otherwise unremarkable Cardiovascular: Chest Pain Physical Examination - Vital Signs Temperature: 98.3 F Blood Pressure: 136/78 Pulse: 62 Respirations: 18 - Physical Exam General: Alert, In no apparent distress, Oriented x3 HEENT: Atraumatic, PERRLA, Mucous membr. moist/pink Neck: Supple, 2+ carotid pulse no bruit, No LAD Respiratory: Clear to auscultation bilaterally, Normal air movement Cardiovascular: Regular rate/rhythm, Normal S1 S2 Gastrointestinal: Normal bowel sounds, No tenderness Musculoskeletal: No tenderness Integumentary: No rashes Neurological: Normal speech, Normal strength at 5/5 x4 extr, Normal tone, Normal affect - Studies Laboratory Data (last 24 hrs) 11/01/23 11/01/23 11/01/23 10:20 10:20 10:00 WBC 11.00 H Hgb 13.9 Hct 41.1 Plt Count 266 Sodium 140 Potassium 2.7 L BUN 9 Creatinine 1.04 H Glucose 83 Magnesium 1.8 Total Bilirubin 0.5 AST 9 L ALT 18 Alkaline Phosphatase 68 Lipase 45 Assessment and Plan - Plan Assessment: Chest pain rule out ACS History of COPD Chronic pain Alzheimer's dementia Cirrhosis of the liver Plan: Chest pain rule out ACS Seen by cardiology-trend troponins, monitor on telemetry Plan for stress test, echocardiogram as requested by cardiology Continue aspirin, statin Denies previous cardiac evaluation History of COPD Chronic pain Alzheimer's dementia Cirrhosis of the liver Continue home medications once verified Monitor CMP daily DVT PPX: Lovenox Code status: DNR Discharge Plan: Home Plan to discharge in: 24 Hours - Advance Directives Does patient have a Living Will: No Does patient have a Durable POA for Healthcare: No - Code Status/Comfort Care Code Status Assessed: Yes (DNR) Critical Care: No Time Spent Managing Pts Care (In Minutes): 70
[2023-11-01 14:12] VITALS: BMI 19.9
[2023-11-01] MEDS: ONDANSETRON 4 MG/2 ML VIAL IV PRN (14:18)
--- NOTE | 2023-11-01 16:40 | P.DS ---
Admission Date: 11/01/23 Discharge Date: 11/01/23 Disposition: AMA-LEFT AGAINST MEDICAL ADVIC Discharge Condition: FAIR Reason for Admission: Chest pain Consultations: CardiologyDr. Guevara Brief History of Present Illness: 83-year-old female with history of COPD, chronic pain, Alzheimer's, liver cirrhosis presents to the emergency department chief complaint of chest pain rating to her jaw with associated nausea. She reports the pain began while at home doing a crossword puzzle and was relieved in the emergency department with nitroglycerin. She was evaluated in the emergency department EKG is without STEMI criteria initial high-sensitivity opponent was 8.6 potassium was 2.7 lipase within normal limits chest negative for acute findings. ED provider wishes to admit under observation for ACS rule out. Patient denies any previous cardiac evaluation, was seen by cardiology here during her stay in the emergency department. Hospital Course: Shortly after being admitted to the hospital and getting to her room upstairs patient stated that she want to leave. When asked why she want to leave she stated that she was tired of waiting around for nothing and that nothing had been done for. I explained to her that the testing has been done and her evaluation by pit laborer, plans for stress test and echocardiogram but she states she is not willing to stay overnight or have any further testing and wants to leave immediately. She had already called her son who she told me was on the way to come pick her up. When asked if she understood the risk of leaving his medical advice she said that she knows that she could if she leaves without further treatment and she was okay without. Her son came and picked her up from the hospital and brought her back home, she signed out AMA. Vital Signs/Physical Exam: Temp Pulse Resp BP Pulse Ox 98.3 F 62 18 136/78 11/01/23 14:08 11/01/23 14:08 11/01/23 14:08 11/01/23 14:08 General: Alert, In no apparent distress, Oriented x3 HEENT: Atraumatic, PERRLA, EOMI Neck: Supple, JVD not distended Respiratory: Clear to auscultation bilaterally, Normal air movement Cardiovascular: Regular rate/rhythm, Normal S1 S2 Gastrointestinal: Normal bowel sounds, No tenderness Musculoskeletal: No tenderness Integumentary: No rashes Neurological: Normal speech, Normal tone, Normal affect Laboratory Data at Discharge: WBC 11.00 thou/uL (4.3-10.9) H 11/01/23 10:00 Hgb 13.9 g/dL (12.0-15.0) 11/01/23 10:00 Hct 41.1 % (36.0-45.0) 11/01/23 10:00 Plt Count 266 thou/uL (152-406) 11/01/23 10:00 Sodium 140 mEq/L (136-145) 11/01/23 10:20 Potassium 2.7 mEq/L (3.5-5.1) L 11/01/23 10:20 BUN 9 mg/dL (7-18) 11/01/23 10:20 Creatinine 1.04 mg/dL (0.55-1.02) H 11/01/23 10:20 Glucose 83 mg/dL (74-106) 11/01/23 10:20 Magnesium 1.8 mg/dL (1.6-2.4) 11/01/23 10:20 Total Bilirubin 0.5 mg/dL (0.2-1.0) 11/01/23 10:20 AST 9 U/L (15-37) L 11/01/23 10:20 ALT 18 U/L (13-56) 11/01/23 10:20 Alkaline Phosphatase 68 U/L (45-117) 11/01/23 10:20 Lipase 45 U/L (13-75) 11/01/23 10:20 Home Medications: Promethazine Tab [Phenergan*] 25 mg PO Q12H PRN #10 tab 01/25/21 Omeprazole 1 cap PO DAILY 07/27/22 Famotidine [Pepcid] 20 mg PO DAILY 11/01/23 Melatonin 1 mg PO BEDTIME 11/01/23 Meperidine HCl 50 mg PO DAILYPRN PRN 11/01/23 Diet: AHA Followup: Burak Pino MD [Primary Care Provider] - Time spent managing pt's care (in minutes): 10
[2023-11-01] MEDS ORDERED: ATORVASTATIN 40 MG TAB PO SCH (21:00)
[2023-11-02] MEDS ORDERED: ASPIRIN EC 81 MG TAB PO SCH (09:00)
[2023-11-02] MEDS ORDERED: ENOXAPARIN 40 MG/0.4 ML SQ SCH (09:00)
== END 2023-11-01 16:22 | disposition left against medical advice (07) ==
LOC: ER 09:29 → ERHOLD 11:33 → 2ND 12:00
PROVIDERS: ADMIT Hospitalist; ATTEND Hospitalist
DX: R07.9 Chest pain, unspecified (principal); J44.9 Chronic obstructive pulmonary disease, unspecified; G89.29 Other chronic pain; G30.9 Alzheimer's disease, unspecified; F02.80 Dementia in other diseases classified elsewhere, unspecified severity, without behavioral disturbance, psychotic disturbance, mood disturbance, and anxiety; K74.60 Unspecified cirrhosis of liver; Z88.5 Allergy status to narcotic agent; Z88.6 Allergy status to analgesic agent; Z53.29 Procedure and treatment not carried out because of patient's decision for other reasons
CPT/HCPCS: 36415; 71045; 80048; 80076; 83690; 83735; 84484; 85025; G0378; J2405

== ENCOUNTER 2024-01-01 09:49 | Emergency (ER) | payer OTHER, BC ==
--- OUTSIDE RECORDS SUMMARY | 2024-01-01 09:52 | XMS REPORT | Continuity of Care Document ---
Author Name Unknown Address [address] [facility] [place] [address] [facility] thconnect Address [address] [facility] [place] [address] Care Team Providers Care Law Instructor Name Role Phone PCP, PATIENT DOES NOT HAVE A Primary Care Physic padmini Unavailable [email or web address]_S Attending Clinician UnavailNIECY Barber Attending Clinician Unavailab Niecy Collazo DO Attending Clinician [phone] RADIOLOGY Attending Clinician Unavailable Radiology Attending Clinician Unavailable MIKHAIL HURTADO Attending Clinician Unavailab sil MEJIA_GCBZW_Mary Kate_S Admitting Clinician UnavailNIECY Barber Admitting Clinician Unavailab MEKA Ricks Admitting Clinician Unavailable MIKHAIL HURTADO Admitting Clinician Unavailab mujica Payers Payer Name Policy Type Policy Number Effective Date Expirati on Date Source MEDICARE PART A \T\ B [id number] 2004 00:00:00 [employer] TRADITIONAL [id number] 2017 00:00:00 Problems Condition Name Condition Details Condition Category Status Onset Date Resolution Date Last Treatment Date Treating Clinician Comments Source No known active problems No known active problems Disease [facility] Allergies, Adverse Reactions, Alerts Allergy Name Allergy Type Status Severity Reaction(s) Onset Date Inactive Date Treating Clinician Comments Source CODEINE DRUG INGREDI Active N/V 09-18 00:00: 00 [facility] Codeine Propensi ty to adverse reaction s Active Nausea and/or Vomiting 09-18 00:00: 00 [facility] NO KNOWN ALLERGIE S Drug Class Active [facility] Social History Social Habit Start Date Stop Date Quantity Comments Source Exposure to SARS-CoV-2 (event) 2022-09-08 00:00:00 2022-09-18 09:01:00 Not sure [facility] Sex Assigned At 1940 00:00:00 1940 00:00:00 [facility] Smoking Status Start Date Stop Date Source Tobacco smoking consumption unknown [facility] Medications Ordered Medication Name Filled Medication Name Start Date Stop Date Current Medication? Ordering Clinician Indication Dosage Frequency Signature (SIG) Comments Components Source No known medications 09-18 09:05: 08 No No known medication s [facility] gadoteridol (PROHANCE-1 5 mL) injection 0.2 mL/kg 2019-09 21:45: 00 08-12 22:15 :00 No .2mL/kg 0.2 mL/kg, Intravenou s, ONCE, 1 dose, Leni 08/12/20 at 1545, Routine [facility] Vital Signs Vital Name Observation Time Observation Value Comments S ource Heart rate 2022-09-18 16:44:00 62 /min [facility] Respiratory rate 2022-09-18 16:44:00 20 /min [facility] Oxygen saturation in Arterial blood by Pulse oximetry 2022-09-18 16:44:00 99 /min [facility] Systolic blood pressure 2022-09-18 16:00:18 153 mm[Hg] [facility] Diastolic blood pressure 2022-09-18 16:00:18 86 mm[Hg] [facility] Body temperature 2022-09-18 15:03:00 36.89 Keesha [facility] Body height 2022-09-18 15:03:00 160 cm [facility] Body weight 2022-09-18 15:03:00 53.524 kg [facility] BMI 2022-09-18 15:03:00 20.90 kg/m2 [facility] Procedures Procedure Date / Time Performed Performing Clinicia n Source CT TRAUMA HEAD WO CONTRAST 2022-09-18 15:55:32 Nicey Ball [facility] CT TRAUMA CERVICAL SPINE WO CONTRAST 2022-09-18 15:55:32 Niecy Ball [facility] XR SHOULDER <2 VW LEFT 2022-09-18 15:40:40 Ashley Ball [facility] NOTICE OF PRIVACY PRACTICES 2022-09-18 14:59:10 Doctor Unassigned, Webb [facility] CONSENT/REFUSAL FOR DIAGNOSIS AND TREATMENT 2022-09-18 14:58:45 Doctor Unassigned, Webb [facility] MR ABDOMEN W WO CONTRAST MRCP 2020-08-12 22:16:07 Requisition, Paper [facility] NOTICE OF PRIVACY PRACTICES 2020-08-12 21:10:37 Doctor Unassigned, Webb [facility] CONSENT/REFUSAL FOR DIAGNOSIS AND TREATMENT 2020-08-12 21:10:07 Doctor Unassigned, Webb [facility] ASSIGNMENT OF BENEFITS 2020-08-12 21:09:46 Docto r Unassigned, Webb [facility] Encounters Start Date/Time End Date/Time Encounter Type Admission Type Attending [facility] Care Facility Care Department Encounter ID Source 2023-07-03 00:00:00 2023-07-03 00:00:00 Outpatient [email or web address] [email or web address] PRIV PRIV [id number] [facility] 2023-07-02 00:00:00 2023-07-02 00:00:00 Outpatient [email or web address] [email or web address]_S PRIV PRIV [id number] [facility] 2022-09-18 09:05:00 2022-09-18 10:46:00 Emergency X NIECY [facility] ERT [id number] [facility] 2022-09-18 09:05:00 2022-09-18 10:46:00 Emergency Niecy Ball [facility] [id number] [facility] 2020-08-12 15:11:31 2020-08-12 23:59:00 Outpatient R RADIOLOGY [facility] [id number] [facility] 2020-08-12 15:00:00 2020-08-12 23:59:00 Hospital Encounter Radiology [facility] [id number] [facility] 2020-08-12 15:00:00 2020-08-12 23:59:00 Hospital Encounter Radiology [facility] [id number] Results Test Description Test Time Test Comments [...] without and with contrast including MRCP studies. Rimb, Radiant Results Inft User - 08/12/2020 4:29 [...] without and with contrast including MRCP studies. [facility] [id number] 09:33:00* Test Item Value Reference Range Interpretation [...] assessment and management of chronic kidney failure. [facility]
--- NOTE | 2024-01-01 12:24 | EDPHYS ---
Physician Documentation [facility] Name: Milan Weir Age: 83 yrs Sex: Female : 1940 Arrival Date: 01/01/2024 Time: 09:49 Bed 9 Private MD: ED Physician Sean Seymour HPI: 12/31 12:16 This 83 yrs old Female presents to ER via Ambulatory with complaints of Eye nargis Problem. 12:16 The patient is experiencing pain, redness. Onset: The symptoms/episode began/occurred 3 nargis day(s) ago. Duration: the symptoms are continuous. Aggravated by pressure, rubbing. Associated signs and symptoms: Pertinent positives: None. Patient wears glasses. Severity of symptoms: At their worst the symptoms were mild in the emergency department the symptoms are unchanged. The patient has not experienced similar symptoms in the past. Historical: - Allergies: 10:21 Tylenol-Codeine; iw 10:21 Codeine; iw - PMHx: 10:21 Alzheimers; COPD; Hernia; Pancreatitis; iw - PSHx: 10:21 Adenoid excision; Appendectomy; breast implants; Cholecystectomy; double masectomy; iw stomach surgery to prevent vomiting; Tonsillectomy; Total abdominal hysterectomy; - Immunization history:: Adult Immunizations up to date. - Infectious Disease History:: Denies. CDIFF, C. Auris, ESBL, MRSA (w/in 1 year), VRE (w/in 1 year), TB, . - Family history:: not pertinent. - Social history:: Smoking status: Patient denies any tobacco usage or history of. ROS: 12:16 Constitutional: Negative for fever, chills, and weight loss, ENT: Negative for injury, nargis pain, and discharge, Neck: Negative for injury, pain, and swelling, Cardiovascular: Negative for chest pain, palpitations, and edema, Respiratory: Negative for shortness of breath, cough, wheezing, and pleuritic chest pain, Abdomen/GI: Negative for abdominal pain, nausea, vomiting, diarrhea, and constipation, Back: Negative for injury and pain, : Negative for injury, bleeding, discharge, and swelling, MS/Extremity: Negative for injury and deformity, Skin: Negative for injury, rash, and discoloration, Neuro: Negative for headache, weakness, numbness, tingling, and seizure, Psych: Negative for depression, anxiety, suicide ideation, homicidal ideation, and hallucinations, Allergy/Immunology: Negative for hives, rash, and allergies, Endocrine: Negative for neck swelling, polydipsia, polyuria, polyphagia, and marked weight changes, Hematologic/Lymphatic: Negative for swollen nodes, abnormal bleeding, and unusual bruising, 12:16 Eyes: Positive for pain, swelling, of the left eye, Exam: 12:16 Constitutional: This is a well developed, well nourished patient who is awake, alert, nargis and in no acute distress. ENT: Nares patent. No nasal discharge, no septal abnormalities noted. Tympanic membranes are normal and external auditory canals are clear. Oropharynx with no redness, swelling, or masses, exudates, or evidence of obstruction, uvula midline. Mucous membranes moist. Neck: Trachea midline, no thyromegaly or masses palpated, and no cervical lymphadenopathy. Supple, full range of motion without nuchal rigidity, or vertebral point tenderness. No Meningismus. Chest/axilla: Normal chest wall appearance and motion. Nontender with no deformity. No lesions are appreciated. Cardiovascular: Regular rate and rhythm with a normal S1 and S2. No gallops, murmurs, or rubs. Normal PMI, no JVD. No pulse deficits. Respiratory: Lungs have equal breath sounds bilaterally, clear to auscultation and percussion. No rales, rhonchi or wheezes noted. No increased work of breathing, no retractions or nasal flaring. Abdomen/GI: Soft, non-tender, with normal bowel sounds. No distension or tympany. No guarding or rebound. No evidence of tenderness throughout. Back: No spinal tenderness. No costovertebral tenderness. Full range of motion. Skin: Warm, dry with normal turgor. Normal color with no rashes, no lesions, and no evidence of cellulitis. MS/ Extremity: Pulses equal, no cyanosis. Neurovascular intact. Full, normal range of motion. Neuro: Awake and alert, GCS 15, oriented to person, place, time, and situation. Cranial nerves II-XII grossly intact. Motor strength 5/5 in all extremities. Sensory grossly intact. Cerebellar exam normal. Normal gait. Psych: Awake, alert, with orientation to person, place and time. Behavior, mood, and affect are within normal limits. 12:16 Eyes: Pupils: no acute changes, equal, round, and reactive to light and accomodation, Extraocular movements: intact throughout, Conjunctiva: injected, in the left eye, Corneas: are normal, no acute changes, Sclera: no appreciated abnormality, Anterior chamber: normal, no hyphema, on appreciated narrow angle closure, no acute changes, Lids and lashes: appear normal, Visual us: are intact, Nystagmus: is not appreciated, 12:16 Skin: cellulitis, that is minimal, on the left eye, Vital Signs: 10:20 BP 156 / 105; Pulse 68; Resp 16; Temp 97.8; Pulse Ox 98% on R/A; Weight 51.71 kg; iw Height 5 ft. 4 in. ; 12:33 BP 151 / 97; Pulse 71; Resp 18; Pulse Ox 98% ; cp4 10:20 Body Mass Index 19.57 (51.71 kg, 162.56 cm) iw MDM: 09:58 Patient medically screened. nargis 12:20 Differential diagnosis: Corneal abrasion of Foreign body in left eye. Data reviewed: [facility] vital signs, nurses notes. Consideration of Admission/Observation Escalation of care including admission/observation considered. I considered the following discharge prescriptions or medication management in the emergency department Medications were administered in the Emergency Department. See MAR. Test considered but Not performed: Labs: no labs. Care significantly affected by the following chronic conditions: Chronic Obstructive Pulmonary Disease, alzheimers, hernia, copd. Counseling: I had a detailed discussion with the patient and/or guardian regarding the historical points, exam findings, and any diagnostic results supporting the discharge/admit diagnosis, the need for outpatient follow up, for definitive care, an opthalmologist, a family practitioner. Administered Medications: 12:33 Drug: ERYTHromycin Ophthalmic Ointment 1 application Ophthalmic once Route: Ophthalmic; cp4 Site: left eye; 12:33 Drug: Trimethoprim-Sulfamethoxazole PO (160 mg-800 mg (DS) 1 tablet PO once Route: PO; cp4 Disposition Summary: 01/01/24 12:23 Discharge Ordered Notes: Location: Home nargis Problem: new nargis Symptoms: have improved nargis Condition: Stable nargis Diagnosis - Cellulitis of left orbit nargis - Other conjunctivitis - left nargis Followup: nargis - With: Private Physician - When: 2 - 3 days - Reason: Recheck today's complaints, Continuance of care, Re-evaluation by your physician Followup: [facility] - With: Michael Song MD - When: 2 - 3 days - Reason: Recheck today's complaints, Re-evaluation by your physician Discharge Instructions: - Discharge Summary Sheet [facility] - Cellulitis, Adult [facility] - Bacterial Conjunctivitis, Adult nargis - Cellulitis, Adult, [id number] [facility] - Preseptal Cellulitis, Adult [facility] Forms: - Medication Reconciliation Form [facility] - Antibiotic Education [facility] - Prescription Opioid Use [facility] - Patient Portal Instructions [facility] - Leadership Thank You Letter [facility] Prescriptions: - Bactrim DS 800-160 mg Oral Tablet - take 1 tablet ORAL route every 12 hours for 7 days; 14 tablet; Refills: 0, [facility] Product Selection Permitted - Erythromycin 5 mg/gram (0.5 %) Ophthalmic ointment - apply 1 ribbon OPHTHALMIC route every 8 hours; 3.5 gram tube; Refills: 0, [facility] Product Selection Permitted Signatures: Sean Seymour MD MD cha Williams, Irene, RN RN Larissa Stewart cp4
--- NOTE | 2024-01-01 12:24 | ER ---
Nurse's Notes [facility] Name: Milan Weir Age: 83 yrs Sex: Female : 1940 Arrival Date: 01/01/2024 Time: 09:49 Bed 9 Private MD: Diagnosis: Cellulitis of left orbit;Other conjunctivitis-left Presentation: 12/31 10:20 Chief complaint: Patient states: woke up yesterday with left eye drainage, this morning iw her eye is red and swollen. Coronavirus screen: At this time, the client does not indicate any symptoms associated with coronavirus-19. Ebola Screen: Patient negative for fever greater than or equal to 101.5 degrees Fahrenheit, and additional compatible Ebola Virus Disease symptoms Patient denies exposure to infectious person. Patient denies travel to an Ebola-affected area in the 21 days before illness onset. No symptoms or risks identified at this time. Initial Sepsis Screen: Does the patient meet any 2 criteria? No. Patient's initial sepsis screen is negative. Does the patient have a suspected source of infection? No. Patient's initial sepsis screen is negative. Risk Assessment: Do you want to hurt yourself or someone else? Patient reports no desire to harm self or others. Onset of symptoms was December 31, 2023. 10:20 Method Of Arrival: Ambulatory iw 10:20 Acuity: JARRETT 4 iw Historical: - Allergies: 10:21 Tylenol-Codeine; iw 10:21 Codeine; iw - PMHx: 10:21 Alzheimers; COPD; Hernia; Pancreatitis; iw - PSHx: 10:21 Adenoid excision; Appendectomy; breast implants; Cholecystectomy; double masectomy; iw stomach surgery to prevent vomiting; Tonsillectomy; Total abdominal hysterectomy; - Immunization history:: Adult Immunizations up to date. - Infectious Disease History:: Denies. CDIFF, C. Auris, ESBL, MRSA (w/in 1 year), VRE (w/in 1 year), TB, . - Family history:: not pertinent. - Social history:: Smoking status: Patient denies any tobacco usage or history of. Screenin:55 [facility] ED Fall Risk Assessment (Adult) History of falling in the last 3 months, cp4 including since admission No falls in past 3 months (0 pts) Confusion or Disorientation No (0 pts) Intoxicated or Sedated No (0 pts) Impaired Gait No (0 pts) Mobility Assist Device Used No (0 pt) Altered Elimination No (0 pt) Score/Fall Risk Level 0 - 2 = Low Risk Oriented to surroundings, Maintained a safe environment, Assessed \T\ reinforced patient's understanding of fall precautions, Hourly rounding (assess needs \T\ fall precautionary measures) done. Abuse screen: Denies threats or abuse. Nutritional screening: No deficits noted. Tuberculosis screening: No symptoms or risk factors identified. Assessment: 11:55 General: Appears uncomfortable, Behavior is calm, cooperative, appropriate for age. cp4 Pain: Denies pain. EENT: Reports bilateral eye swelling. Vital Signs: 10:20 BP 156 / 105; Pulse 68; Resp 16; Temp 97.8; Pulse Ox 98% on R/A; Weight 51.71 kg; iw Height 5 ft. 4 in. ; 12:33 BP 151 / 97; Pulse 71; Resp 18; Pulse Ox 98% ; cp4 10:20 Body Mass Index 19.57 (51.71 kg, 162.56 cm) iw ED Course: 09:52 Patient arrived in ED. mr 09:58 Sean Seymour MD is Attending Physician. nargis 10:21 Triage completed. iw 10:21 Arm band placed on. iw 11:10 Larissa Temple is Primary Nurse. cp4 11:55 Bed in low position. Call light in reach. Side rails up X 1. Provided Education on: eye cp4 swelling. 11:55 Patient did not have IV access during this emergency room visit. cp4 12:22 Michael Song MD is Referral Physician. nargis 12:34 No provider procedures requiring assistance completed. cp4 Administered Medications: 12:33 Drug: ERYTHromycin Ophthalmic Ointment 1 application Ophthalmic once Route: Ophthalmic; cp4 Site: left eye; 12:33 Drug: Trimethoprim-Sulfamethoxazole PO (160 mg-800 mg (DS) 1 tablet PO once Route: PO; cp4 Medication: 11:55 VIS not applicable for this client. cp4 Outcome: 12:23 Discharge ordered by . nargis 12:34 Discharged to home ambulatory, cp4 12:34 Condition: stable 12:34 Discharge instructions given to patient, Instructed on discharge instructions, follow up and referral plans. medication usage, Demonstrated understanding of instructions, follow-up care, medications, Prescriptions given X 2, 12:34 Patient left the ED. cp4 Signatures: eSan Seymour MD MD cha Rivera, Mary, Sammie Manley, RN RN Larissa Stewart cp4 Corrections: (The following items were deleted from the chart) 10:21 10:20 Pulse 68bpm; Resp 16bpm; Pulse Ox 98% RA; Temp 97.8F; roxy ramsey
[2024-01-01] MEDS ORDERED: SMZ./TMP. 800/160 MG TABLET ONE (12:25)
[2024-01-01] MEDS ORDERED: ERYTHROMYCIN 3.5GM OPTH OINT ONE (12:27)
[2024-01-01 13:09] VITALS: BP 151/97; TEMP 97.8; O2SAT 98
== END 2024-01-01 12:34 | disposition home or self-care (01) ==
LOC: ER 09:49
DX: H05.012 Cellulitis of left orbit (principal); H10.89 Other conjunctivitis; Z88.5 Allergy status to narcotic agent
CPT/HCPCS: 99283

== ENCOUNTER 2024-01-27 14:28 | Emergency (ER) | payer OTHER, BC ==
--- OUTSIDE RECORDS SUMMARY | 2024-01-27 14:30 | XMS REPORT | Continuity of Care Document ---
Author Name Unknown Address 1200 [facility] [address] thconnect Address 1200 [facility] 1 495 [place] [address] Care Team Providers Care Supervisory Cbp Officer Name Role Phone PCP, PATIENT DOES NOT HAVE A Primary Care Physic padmini Unavailable ROBERTO_GCBZW_Mary Kate_S Attending Clinician UnavailNIECY Barber Attending Clinician Unavailab Niecy Collazo DO Attending Clinician [phone] RADIOLOGY Attending Clinician Unavailable Radiology Attending Clinician Unavailable MIKHAIL HURTADO Attending Clinician Unavailab sil MEJIA_GCBZW_Mary Kate_Ashley Admitting Clinician NIECY Mendoza Admitting Clinician Unavailab MEKA Ricks Admitting Clinician Unavailable MIKHAIL HURTADO Admitting Clinician Unavailab sil Payers Payer Name Policy Type Policy Number Effective Date Expirati on Date Source MEDICARE PART A \T\ B [id number] 2004 00:00:00 [facility] TRADITIONAL [id number] 2017 00:00:00 Problems Condition Name Condition Details Condition Category Status Onset Date Resolution Date Last Treatment Date Treating Clinician Comments Source No known active problems No known active problems Disease [facility] Allergies, Adverse Reactions, Alerts Allergy Name Allergy Type Status Severity Reaction(s) Onset Date Inactive Date Treating Clinician Comments Source CODEINE DRUG INGREDI Active N/V 09-18 00:00: 00 [facility] Codeine Propensi ty to adverse reaction s Active Nausea and/or Vomiting 09-18 00:00: 00 [facility] NO KNOWN ALLERGIE S Drug Class Active [facility] Social History Social Habit Start Date Stop Date Quantity Comments Source Exposure to SARS-CoV-2 (event) 2022-09-08 00:00:00 2022-09-18 09:01:00 Not sure [facility] Sex Assigned At 1940 00:00:00 1940 00:00:00 [facility] Smoking Status Start Date Stop Date Source Tobacco smoking consumption unknown [facility] Medications Ordered Medication Name Filled Medication Name Start Date Stop Date Current Medication? Ordering Clinician Indication Dosage Frequency Signature (SIG) Comments Components Source No known medications 09-18 09:05: 08 No No known medication s [facility] gadoteridol (PROHANCE-1 5 mL) injection 0.2 mL/kg 2019-09 21:45: 00 08-12 22:15 :00 No .2mL/kg 0.2 mL/kg, Intravenou s, ONCE, 1 dose, Leni 08/12/20 at 1545, Routine [facility] Vital Signs Vital Name Observation Time Observation Value Comments S ource Heart rate 2022-09-18 16:44:00 62 /min [facility] Respiratory rate 2022-09-18 16:44:00 20 /min [facility] Oxygen saturation in Arterial blood by Pulse oximetry 2022-09-18 16:44:00 99 /min [facility] Systolic blood pressure 2022-09-18 16:00:18 153 mm[Hg] [facility] Diastolic blood pressure 2022-09-18 16:00:18 86 mm[Hg] [facility] Body temperature 2022-09-18 15:03:00 36.89 Keesha [facility] Body height 2022-09-18 15:03:00 160 cm [facility] Body weight 2022-09-18 15:03:00 53.524 kg [facility] BMI 2022-09-18 15:03:00 20.90 kg/m2 [facility] Procedures Procedure Date / Time Performed Performing Clinicia n Source CT TRAUMA HEAD WO CONTRAST 2022-09-18 15:55:32 Niecy Ball [facility] CT TRAUMA CERVICAL SPINE WO CONTRAST 2022-09-18 15:55:32 Niecy Ball [facility] XR SHOULDER <2 VW LEFT 2022-09-18 15:40:40 Ashley Ball [facility] NOTICE OF PRIVACY PRACTICES 2022-09-18 14:59:10 Doctor Unassigned, [place] [facility] CONSENT/REFUSAL FOR DIAGNOSIS AND TREATMENT 2022-09-18 14:58:45 Doctor Unassigned, [place] [facility] MR ABDOMEN W WO CONTRAST MRCP 2020-08-12 22:16:07 Requisition, Paper [facility] NOTICE OF PRIVACY PRACTICES 2020-08-12 21:10:37 Doctor Unassigned, [place] [facility] CONSENT/REFUSAL FOR DIAGNOSIS AND TREATMENT 2020-08-12 21:10:07 Doctor Unassigned, [place] [facility] ASSIGNMENT OF BENEFITS 2020-08-12 21:09:46 Docto r Unassigned, [place] [facility] Encounters Start Date/Time End Date/Time Encounter Type Admission Type Attending [facility] Facility Care Department Encounter ID Source 2023-07-03 00:00:00 2023-07-03 00:00:00 Outpatient [email or web address] diyala_S PRIV PRIV [id number] [facility] 2023-07-02 00:00:00 2023-07-02 00:00:00 Outpatient [email or web address] diyala_S PRIV PRIV [id number] [facility] 2022-09-18 09:05:00 2022-09-18 10:46:00 Emergency X NIECY BALL [facility] ERT [id number] [facility] 2022-09-18 09:05:00 2022-09-18 10:46:00 Emergency Niecy Ball [facility] [id number] [facility] 2020-08-12 15:11:31 2020-08-12 23:59:00 Outpatient R RADIOLOGY [facility] [id number] [facility] 2020-08-12 15:00:00 2020-08-12 23:59:00 Hospital Encounter Radiology [facility] [id number] [facility] 2020-08-12 15:00:00 2020-08-12 23:59:00 Hospital Encounter Radiology [facility] [id number] Results Test Description Test Time Test Comments [...] without and with contrast including [facility]CP studies. [facility] [id number] 09:33:00* Test Item Value Reference Range Interpretation [...] assessment and management of chronic kidney failure. [facility]
[2024-01-27] MEDS ORDERED: FLUORESCEIN SODIUM 1 MG/WRAP ONE (15:06)
[2024-01-27] MEDS ORDERED: TETRACAINE HCL 0.5% 4ML OPTH ONE (15:07)
--- NOTE | 2024-01-27 15:42 | ER ---
Nurse's Notes [facility] Name: Milan Weir Age: 83 yrs Sex: Female : 1940 Arrival Date: 01/27/2024 Time: 14:28 Bed 17 Private MD: Diagnosis: Unspecified acute conjunctivitis, left eye Presentation: 01/26 14:39 Chief complaint: Patient states: left eye swelling. Coronavirus screen: At this time, as6 the client does not indicate any symptoms associated with coronavirus-19. Ebola Screen: No symptoms or risks identified at this time. Initial Sepsis Screen: Does the patient meet any 2 criteria? No. Patient's initial sepsis screen is negative. Does the patient have a suspected source of infection? No. Patient's initial sepsis screen is negative. Risk Assessment: Do you want to hurt yourself or someone else? Patient reports no desire to harm self or others. Onset of symptoms was January 26, 2024. 14:39 Method Of Arrival: Ambulatory as6 14:39 Acuity: JARRETT 4 as6 Historical: - Allergies: 14:40 Codeine; as6 14:40 Tylenol-Codeine; as6 - PMHx: 14:40 Alzheimers; COPD; Hernia; Pancreatitis; as6 - PSHx: 14:40 Adenoid excision; Appendectomy; breast implants; Cholecystectomy; double masectomy; as6 stomach surgery to prevent vomiting; Tonsillectomy; Total abdominal hysterectomy; - Immunization history:: Adult Immunizations. - Infectious Disease History:: Denies. - Social history:: Smoking status: Patient denies any tobacco usage or history of. - Family history:: not pertinent. Screenin:52 [facility] ED Fall Risk Assessment (Adult) History of falling in the last 3 months, tl4 including since admission No falls in past 3 months (0 pts) Confusion or Disorientation No (0 pts) Intoxicated or Sedated No (0 pts) Impaired Gait No (0 pts) Mobility Assist Device Used No (0 pt) Altered Elimination No (0 pt) Score/Fall Risk Level 0 - 2 = Low Risk Oriented to surroundings, Maintained a safe environment, Educated pt \T\ family on fall prevention, incl call for assistance when getting out of bed, Assessed \T\ reinforced patient's understanding of fall precautions. Abuse screen: Denies threats or abuse. Denies injuries from another. Nutritional screening: No deficits noted. Tuberculosis screening: No symptoms or risk factors identified. Assessment: 14:50 General: Appears uncomfortable, Behavior is calm, cooperative. Pain: Complains of pain tl4 in left eye. Neuro: Level of Consciousness is awake, alert, obeys commands, Oriented to person, place, time, situation, Moves all extremities. Full function Gait is steady, Speech is normal, Facial symmetry appears normal. Cardiovascular: Capillary refill < 3 seconds Patient's skin is warm and dry. Respiratory: Airway is patent Respiratory effort is even, unlabored, Respiratory pattern is regular, symmetrical. GI: No signs and/or symptoms were reported involving the gastrointestinal system. : No signs and/or symptoms were reported regarding the genitourinary system. EENT: Eyes are tearing on outer aspect of conjuctiva of left eye, iris of left eye, inner aspect of conjunctiva of left eye and left inner canthus Sclera/Cornea are reddened in outer aspect of conjuctiva of left eye and inner aspect of conjunctiva of left eye. Derm: No signs and/or symptoms reported regarding the dermatologic system. Musculoskeletal: No signs and/or symptoms reported regarding the musculoskeletal system. Vital Signs: 14:39 BP 149 / 79; Pulse 66; Resp 16; Temp 97.9; Pulse Ox 98% ; Weight 52.62 kg; Height 5 ft. as6 4 in. ; Pain 8/10; 14:51 BP 151 / 73; Pulse 59; Resp 16; Pulse Ox 99% on R/A; tl4 15:11 BP 134 / 76; Pulse 62; Resp 16; Pulse Ox 99% ; tl4 14:39 Body Mass Index 19.91 (52.62 kg, 162.56 cm) as6 14:39 Pain Scale: Adult as6 ED Course: 14:30 Patient arrived in ED. im 14:40 Triage completed. as6 14:40 Arm band placed on. as6 14:46 Melvin Dent, SANDY is Primary Nurse. tl4 14:47 Chace Sepulveda MD is Attending Physician. rt 14:52 Patient has correct armband on for positive identification. Bed in low position. Call tl4 light in reach. Side rails up X 1. Provided Education on: ED process, call hernandez. Client placed on continuous cardiac and pulse oximetry monitoring. NIBP monitoring applied. Door closed. Noise minimized. Lights dimmed. Moved to private room. Warm blanket given. Pillow given. Administered Medications: 15:35 Drug: Tetracaine Ophthalmic Drops 0.5 % 1 drops Ophthalmic once {Note: administered by tl4 Dr Sepulveda.} Route: Ophthalmic; Site: left eye; Medication: 14:51 VIS not applicable for this client. tl4 Outcome: 15:41 Discharge ordered by . rt 16:03 Patient left the ED. rs5 Signatures: Amador Rodriguez RN RN as6 Chace Sepulveda MD MD rt Felix Obrien RN RN rs5 Tressa Head Toni, RN RN tl4
--- NOTE | 2024-01-27 15:42 | EDPHYS ---
Physician Documentation [facility] Name: Milan Weir Age: 83 yrs Sex: Female : 1940 Arrival Date: 01/27/2024 Time: 14:28 Bed 17 Private MD: ED Physician Chace Sepulveda HPI: 01/26 17:52 This 83 yrs old Female presents to ER via Ambulatory with complaints of Eye Swelling. rt 17:52 Patient presents to the ED with redness, foreign body sensation to the left eye rt starting this morning. Denies discrete injury. Denies other acute complaints, symptoms are mild in severity, no other aggravating or alleviating factors.. Historical: - Allergies: 14:40 Codeine; as6 14:40 Tylenol-Codeine; as6 - PMHx: 14:40 Alzheimers; COPD; Hernia; Pancreatitis; as6 - PSHx: 14:40 Adenoid excision; Appendectomy; breast implants; Cholecystectomy; double masectomy; as6 stomach surgery to prevent vomiting; Tonsillectomy; Total abdominal hysterectomy; - Immunization history:: Adult Immunizations. - Infectious Disease History:: Denies. - Social history:: Smoking status: Patient denies any tobacco usage or history of. - Family history:: not pertinent. ROS: 17:52 Constitutional: Negative for fever, chills, and weight loss, MS/Extremity: Negative for rt injury and deformity, Skin: Negative for injury, rash, and discoloration, Neuro: Negative for headache, weakness, numbness, tingling, and seizure, 17:52 Eyes: Positive for pain, redness, Exam: 17:52 Constitutional: This is a well developed, well nourished patient who is awake, alert, rt and in no acute distress. Head/Face: Normocephalic, atraumatic. Chest/axilla: Normal chest wall appearance and motion. Nontender with no deformity. No lesions are appreciated. Cardiovascular: Regular rate and rhythm with a normal S1 and S2. No gallops, murmurs, or rubs. Normal PMI, no JVD. No pulse deficits. Respiratory: Lungs have equal breath sounds bilaterally, clear to auscultation and percussion. No rales, rhonchi or wheezes noted. No increased work of breathing, no retractions or nasal flaring. Abdomen/GI: Soft, non-tender, with normal bowel sounds. No distension or tympany. No guarding or rebound. No evidence of tenderness throughout. MS/ Extremity: Pulses equal, no cyanosis. Neurovascular intact. Full, normal range of motion. Neuro: Awake and alert, GCS 15, oriented to person, place, time, and situation. Cranial nerves II-XII grossly intact. Motor strength 5/5 in all extremities. Sensory grossly intact. Cerebellar exam normal. Normal gait. 17:52 Eyes: Injected conjunctiva to the left eye, pupils equally round and reactive, extraocular muscles are intact, no focal areas of fluorescein uptake, pressures in the left eye are 19 mmHg.. Vital Signs: 14:39 BP 149 / 79; Pulse 66; Resp 16; Temp 97.9; Pulse Ox 98% ; Weight 52.62 kg; Height 5 ft. as6 4 in. ; Pain 8/10; 14:51 BP 151 / 73; Pulse 59; Resp 16; Pulse Ox 99% on R/A; tl4 15:11 BP 134 / 76; Pulse 62; Resp 16; Pulse Ox 99% ; tl4 14:39 Body Mass Index 19.91 (52.62 kg, 162.56 cm) as6 14:39 Pain Scale: Adult as6 MDM: 14:57 Patient medically screened. rt 17:52 Differential diagnosis: Conjunctivitis, foreign body, glaucoma. Data reviewed: vital rt signs, nurses notes. I considered the following discharge prescriptions or medication management in the emergency department Medications were administered in the Emergency Department. See MAR. Counseling: I had a detailed discussion with the patient and/or guardian regarding the historical points, exam findings, and any diagnostic results supporting the discharge/admit diagnosis, the need for outpatient follow up, to return to the emergency department if symptoms worsen or persist or if there are any questions or concerns that arise at home. Response to treatment: the patient's symptoms have markedly improved after treatment. 01/26 15:03 Order name: Eye Tray; Complete Time: 15:05 rt 01/26 15:03 Order name: Fluoresene Opth strip; Complete Time: 15:35 rt Administered Medications: 15:35 Drug: Tetracaine Ophthalmic Drops 0.5 % 1 drops Ophthalmic once {Note: administered by tl4 Dr Sepulveda.} Route: Ophthalmic; Site: left eye; Disposition Summary: 01/27/24 15:41 Discharge Ordered Notes: Location: Home rt Problem: new rt Symptoms: have improved rt Condition: Stable rt Diagnosis - Unspecified acute conjunctivitis, left eye rt Followup: rt - With: Private Physician - When: 2 - 3 days - Reason: Discharge Instructions: - Discharge Summary Sheet rt - Conjunctivitis rt Forms: - Medication Reconciliation Form rt - Antibiotic Education rt - Prescription Opioid Use rt - Patient Portal Instructions rt - Leadership Thank You Letter rt Prescriptions: - Vigamox 0.5 % Ophthalmic Drops - instill 1 drop OPHTHALMIC route every 8 hours for 7 days; 5 milliliter; rt Refills: 0, Product Selection Permitted Signatures: Amador Rodriguez RN RN as6 Chace Sepulveda MD MD rt Melvin Dent RN RN tl4
[2024-01-27 16:11] VITALS: BP 134/76; TEMP 97.9; O2SAT 99
== END 2024-01-27 16:03 | disposition home or self-care (01) ==
LOC: ER 14:28
DX: H10.32 Unspecified acute conjunctivitis, left eye (principal)
CPT/HCPCS: 99283

== ENCOUNTER 2024-02-15 18:26 | Observation (INO) | payer OTHER, BC ==
--- OUTSIDE RECORDS SUMMARY | 2024-02-15 18:29 | XMS REPORT | Continuity of Care Document ---
Author Name Unknown Address [address] [facility]. [address] [place] [address] [facility] thconnect Address [address] [facility] [place] [address] Care Team Providers Care Splunk Developer Name Role Phone PCP, PATIENT DOES NOT HAVE A Primary Care Physic padmini Unavailable ROBERTO_GCBZW_Kamarielenaa_S Attending Clinician UnavailNIECY Barber Attending Clinician Unavailab Niecy Collazo DO Attending Clinician [phone] RADIOLOGY Attending Clinician Unavailable Radiology Attending Clinician Unavailable MIKHAIL HURTADO Attending Clinician Unavailab sil MEJIA_GCBZW_Mary Kate_S Admitting Clinician UnavailNIECY Barber Admitting Clinician Unavailab MEKA Ricks Admitting Clinician Unavailable MIKHAIL HURTADO Admitting Clinician Unavailab le Payers Payer Name Policy Type Policy Number Effective Date Expirati on Date Source MEDICARE PART A \T\ B [id number] 2004 00:00:00 [facility] [employer]ADITION[employer] [id number] 2017 00:00:00 Problems Condition Name Condition Details Condition Category Status Onset Date Resolution Date Last Treatment Date Treating Clinician Comments Source No known active problems No known active problems Disease [facility] Allergies, Adverse Reactions, Alerts Allergy Name Allergy Type Status Severity Reaction(s) Onset Date Inactive Date Treating Clinician Comments Source CODEINE DRUG INGREDI Active N/V 09-18 00:00: 00 [facility] Codeine Propensi ty to adverse reaction s Active Nausea and/or Vomiting 09-18 00:00: 00 [facility] NO KNOWN ALLERGIE S Drug Class Active [facility] Social History Social Habit Start Date Stop Date Quantity Comments Source Exposure to SARS-CoV-2 (event) 2022-09-08 00:00:00 2022-09-18 09:01:00 Not sure [facility] Sex Assigned At 1940 00:00:00 1940 00:00:00 [facility] Smoking Status Start Date Stop Date Source Tobacco smoking consumption unknown [facility] Medications Ordered Medication Name Filled Medication Name Start Date Stop Date Current Medication? Ordering Clinician Indication Dosage Frequency Signature (SIG) Comments Components Source No known medications 09-18 09:05: 08 No No known medication s [facility] gadoteridol (PROHANCE-1 5 mL) injection 0.2 mL/kg 2019-09 21:45: 00 08-12 22:15 :00 No .2mL/kg 0.2 mL/kg, Intravenou s, ONCE, 1 dose, Leni 08/12/20 at 1545, Routine [facility] Vital Signs Vital Name Observation Time Observation Value Comments S ource Heart rate 2022-09-18 16:44:00 62 /min [facility] Respiratory rate 2022-09-18 16:44:00 20 /min [facility] Oxygen saturation in Arterial blood by Pulse oximetry 2022-09-18 16:44:00 99 /min [facility] Systolic blood pressure 2022-09-18 16:00:18 153 mm[Hg] [facility] Diastolic blood pressure 2022-09-18 16:00:18 86 mm[Hg] [facility] Body temperature 2022-09-18 15:03:00 36.89 Keesha [facility] Body height 2022-09-18 15:03:00 160 cm [facility] Body weight 2022-09-18 15:03:00 53.524 kg [facility] BMI 2022-09-18 15:03:00 20.90 kg/m2 [facility] Procedures Procedure Date / Time Performed Performing Clinicia n Source CT TRAUMA HEAD WO CONTRAST 2022-09-18 15:55:32 Niecy Ball [facility] CT TRAUMA CERVICAL SPINE WO CONTRAST 2022-09-18 15:55:32 Niecy Ball [facility] XR SHOULDER <2 VW LEFT 2022-09-18 15:40:40 Ashley Ball [facility] NOTICE OF PRIVACY PRACTICES 2022-09-18 14:59:10 Doctor Unassigned, [place] [facility] CONSENT/REFUSAL FOR DIAGNOSIS AND TREATMENT 2022-09-18 14:58:45 Doctor Unassigned, [place] [facility] MR ABDOMEN W WO CONTRAST MRCP 2020-08-12 22:16:07 Requisition, Paper [facility] NOTICE OF PRIVACY PRACTICES 2020-08-12 21:10:37 Doctor Unassigned, [place] [facility] CONSENT/REFUSAL FOR DIAGNOSIS AND TREATMENT 2020-08-12 21:10:07 Doctor Unassigned, [place] [facility] ASSIGNMENT OF BENEFITS 2020-08-12 21:09:46 Docto r Unassigned, [place] [facility] Encounters Start Date/Time End Date/Time Encounter Type Admission Type Attending [facility] Care Facility Care Department Encounter ID Source 2023-07-03 00:00:00 2023-07-03 00:00:00 Outpatient [email or web address] diyala_S PRIV PRIV [id number] [facility] 2023-07-02 00:00:00 2023-07-02 00:00:00 Outpatient [email or web address] diyala_S PRIV PRIV [id number] [facility] 2022-09-18 09:05:00 2022-09-18 10:46:00 Emergency X NIECY BALL [facility] ERT [id number] [facility] 2022-09-18 09:05:00 2022-09-18 10:46:00 Emergency Niecy Ball [facility] [id number] [facility] 2020-08-12 15:11:31 2020-08-12 23:59:00 Outpatient R RADIOLOGY [facility] [id number] [facility] 2020-08-12 15:00:00 2020-08-12 23:59:00 Hospital Encounter Radiology [facility] [id number] [facility] 2020-08-12 15:00:00 2020-08-12 23:59:00 Hospital Encounter Radiology [facility] [id number] Results Test Description Test Time Test Comments [...] without and with contrast including MRCP studies. [facility], [id number] 09:33:00* Test Item Value Reference Range Interpretation [...] assessment and management of chronic kidney failure. [facility]
[2024-02-15] MEDS ORDERED: NA CHLORIDE 0.9% 1,000 ML ONE ×2 (19:05→19:50)
[2024-02-15] MEDS ORDERED: ONDANSETRON 4 MG/2 ML VIAL ONE ×2 (19:05→19:45)
[2024-02-15 19:29] LABS: Absolute Basophils 0.1 K/uL (0-0.5); Absolute Eosinophils 0.2 K/uL (0-0.5); Absolute Lymphocytes (CBC) 1.5 K/uL (0.7-4.9); Absolute Monocytes 0.4 K/uL (0.1-1.3); Absolute Neutrophil 7.2 K/uL (1.8-8.0); Basophils % 0.6 % (0-1.3); Eosinophils % 2.1 % (0-4.4); Hematocrit 39.8 % (36.0-45.0); Hemoglobin 13.4 g/dL (12.0-15.0); Lymphocytes % 15.9 % (15.3-44.8); MCH 30.8 pg (27.0-35.0); MCHC 33.6 g/dL (32.0-36.0); MCV 91.6 fL (80-100); MPV 7.5 fL (7.6-11.3); Monocytes % 4.5 % (3.3-12.3); Neutrophils % 76.9 % (41.7-73.7); Nucleated Red Blood Cells % 0.1 % (0-0); Platelets 240 thou/uL (152-406); RBC Red Blood Cell Count 4.34 M/uL (3.86-4.86); Red Cell Distribution Width 13.6 % (12.1-15.2)
--- NOTE | 2024-02-15 19:32 | RAD REPORT ---
EXAM DESCRIPTION: RAD - Abdomen Single View - 02/15/2024 7:26 pm CLINICAL HISTORY: PAIN Pain COMPARISON: Abdomen Pelvis W Contrast dated 06/08/2023 FINDINGS: The bowel gas pattern is non-obstructive. No evidence of free air or pneumatosis. No suspi cious calcifications. No significant bony findings. Cholecystectomy clips. IMPRESSION: Negative examination.
[2024-02-15] MEDS ORDERED: FAMOTIDINE 20 MG/2 ML VIAL IV ONE (19:41)
[2024-02-15 19:50] LABS: PT Prothrombin Time 11.2 SECONDS (9.5-12.5); Protime INR 1.02
[2024-02-15 19:59] LABS: ALT/SGPT 23 U/L (13-56); AST/SGOT 22 U/L (15-37); Albumin 3.7 g/dL (3.4-5.0); Alkaline Phosphatase 83 U/L (45-117); Anion Gap 12.2 mEq/L (5.0-15.0); BUN Blood Urea Nitrogen 9 mg/dL (7-18); Bicarbonate 22 mEq/L (21-32); Bilirubin Direct < 0.2 mg/dL (0-0.2); Bilirubin Indirect, Calculated 0.3 mg/dL (0.2-0.8); Bilirubin Total 0.5 mg/dL (0.2-1.0); Globulin 3.7 g/dL (2.3-3.5); Glomerular Filtration Rate 58 ml/min (=/>90); Glucose Level 195 mg/dL (74-106); Lipase 47 U/L (13-75); NT PRO-BNP 63 pg/mL (<450); Potassium 4.2 mEq/L (3.5-5.1); Protein, Total 7.4 g/dL (6.4-8.2); Sodium Level 137 mEq/L (136-145); Troponin High Sensitivity 3.8 pg/mL (<58.9)
--- NOTE | 2024-02-15 20:05 | ER ---
Nurse's Notes [facility] Name: Milan Weir Age: 83 yrs Sex: Female : 1940 Arrival Date: 02/15/2024 Time: 18:26 Bed 12 Private MD: Diagnosis: Vomiting-INTRACTABLE;Epigastric abdominal tenderness Presentation: 02/14 18:32 Chief complaint: EMS states: N/V x 30 minutes. Denies pain. Phenergan 25 mg IM hb administered [employer]. Coronavirus screen: At this time, the client does not indicate any symptoms associated with coronavirus-19. Ebola Screen: No symptoms or risks identified at this time. Initial Sepsis Screen: Does the patient meet any 2 criteria? No. Patient's initial sepsis screen is negative. Does the patient have a suspected source of infection? No. Patient's initial sepsis screen is negative. Risk Assessment: Do you want to hurt yourself or someone else? Patient reports no desire to harm self or others. Onset of symptoms was February 15, 2024. 18:32 Method Of Arrival: EMS: [facility] hb 18:32 Acuity: JARRETT 3 hb Triage Assessment: 18:34 General: Appears ill, Behavior is cooperative, flat. Pain: Denies pain. Neuro: Level of hb Consciousness is obeys commands, lethargic, Oriented to person, place. Cardiovascular: Patient's skin is warm and dry. Respiratory: Respiratory effort is even, unlabored, Respiratory pattern is regular, symmetrical. GI: Pt is actively vomiting bright yellow fluid Reports nausea, vomiting. Historical: - Allergies: 18:34 Codeine; hb 18:34 tramadol; hb 18:34 Tylenol-Codeine; hb - PMHx: 18:34 Alzheimers; COPD; Hernia; Pancreatitis; hb - PSHx: 18:34 Appendectomy; Adenoid excision; breast implants; Cholecystectomy; double masectomy; hb stomach surgery to prevent vomiting; Tonsillectomy; Total abdominal hysterectomy; - Immunization history:: Adult Immunizations unknown. - Infectious Disease History:: Denies. - Social history:: Smoking status: Patient denies any tobacco usage or history of. Screenin:20 Abuse screen: Denies threats or abuse. Denies injuries from another. Nutritional as6 screening: No deficits noted. Tuberculosis screening: No symptoms or risk factors identified. 22:45 [facility] ED Fall Risk Assessment (Adult) History of falling in the last 3 months, me1 including since admission No falls in past 3 months (0 pts) Confusion or Disorientation No (0 pts) Intoxicated or Sedated No (0 pts) Impaired Gait Yes (1 pt) Mobility Assist Device Used No (0 pt) Altered Elimination Yes (1 pt) Score/Fall Risk Level 3 or more points = High Risk Maintained a safe environment, Hourly rounding (assess needs \T\ fall precautionary measures) done, Used ambulatory aids as needed (educated on \T\ assisted with). Assessment: 19:19 General: Appears uncomfortable, ill, Behavior is restless. Pain: Denies pain. Neuro: as6 Level of Consciousness is awake, alert, obeys commands, Oriented to person, place, time, situation. Respiratory: Respiratory effort is even, unlabored, Respiratory pattern is regular, symmetrical. GI: Pt is actively vomiting bile, Reports diarrhea, nausea, vomiting. Vital Signs: 18:32 BP 166 / 81; Pulse 68; Resp 16; Temp 98.2(TE); Pulse Ox 99% on R/A; Weight 52.62 kg; hb Height 5 ft. 4 in. ; Pain 0/10; 19:44 BP 102 / 76; Pulse 71; Resp 17; Pulse Ox 98% on R/A; me1 20:30 BP 153 / 63; Pulse 71; Resp 16; Pulse Ox 98% on R/A; me1 21:30 BP 156 / 59; Pulse 73; Resp 16; Pulse Ox 98% on R/A; me1 18:32 Body Mass Index 19.91 (52.62 kg, 162.56 cm) hb 18:32 Pain Scale: Adult hb ED Course: 18:32 Patient arrived in ED. hb 18:32 Sean Seymour MD is Attending Physician. nargis 18:33 Triage completed. hb 18:34 Amador Rodriguez, SANDY is Primary Nurse. as6 18:35 Arm band placed on. hb 19:19 Lipase Sent. as6 19:19 Basic Metabolic Panel Sent. as6 19:19 CBC with Diff Sent. as6 19:19 LFT's Sent. as6 19:19 Magnesium Sent. as6 19:19 NT PRO-BNP Sent. as6 19:19 PT-INR Sent. as6 19:19 Troponin HS Sent. as6 19:19 Inserted saline lock: 22 gauge in right antecubital area, using aseptic technique. as6 Blood collected. 19:20 Bed in low position. Call light in reach. Side rails up X2. as6 19:27 Abdomen Single View In Process Unspecified. EDMS 20:03 Tj Simpson MD is Hospitalizing Provider. [facility] 20:19 CT Abd/Pelvis - IV Contrast Only In Process Unspecified. EDMS 22:04 Cleaned of incontinence. me1 22:44 No provider procedures requiring assistance completed. Patient admitted, IV remains in me1 place. 22:45 Provided Education on: POC. Verbalized understanding. . me1 Administered Medications: 19:18 Drug: NS 0.9% IV 1000 ml IV at 1 bolus Per protocol; 1000 mL bolus Route: IV; Rate: 1 as6 bolus; Site: right antecubital; 21:49 Follow up: Response: No adverse reaction; IV Status: Completed infusion; IV Intake: me1 1000ml 19:19 Drug: Ondansetron IVP 4 mg IVP once; over 2 minutes Route: IVP; Site: right antecubital;as6 19:44 Follow up: Response: No adverse reaction; Nausea unchanged me1 19:44 Drug: Famotidine IVP 20 mg IVP once; dilute with 10 mL 0.9% NaCl; give over 2 minutes me1 Route: IVP; Site: right antecubital; 19:49 Follow up: Response: No adverse reaction me1 19:52 Drug: NS 0.9% IV 1000 ml IV at 125 ml/hr continuous Route: IV; Rate: 125 ml/hr; Site: tn1 right antecubital; 22:47 Follow up: IV Status: Infusion continued upon admission me1 Medication: 22:45 VIS not applicable for this client. me1 Intake: 21:49 IV: 1000ml; Total: 1000ml. me1 Outcome: 20:04 Decision to Hospitalize by Provider. [facility] 22:45 Admitted to Med/surg accompanied by nurse, via stretcher, room 229, with chart, Report me1 called to faxed. Receipt confirmed with Rosi. 22:45 Condition: stable 22:45 Instructed on the need for admit, 22:46 Patient left the ED. me1 Signatures: Dispatcher [employer] EDSean Everett MD MD cha Baxter, Heather, RN RN hb Amador Rodriguez RN RN as6 Sheridan Keenan RN RN me1 Corrections: (The following items were deleted from the chart) 18:34 18:32 BP 166 / 81; Pulse 68bpm; Resp 16bpm; Pulse Ox 99% RA; Temp 98.2F Temporal; Pain hb 0/10, Adult; hb
--- NOTE | 2024-02-15 20:05 | EDPHYS ---
Physician Documentation [facility] Name: Milan Weir Age: 83 yrs Sex: Female : 1940 Arrival Date: 02/15/2024 Time: 18:26 Bed 12 Private MD: ED Physician Sean Seymour HPI: 02/14 19:42 This 83 yrs old Female presents to ER via EMS with complaints of nargis Nausea/Vomiting. 19:42 The patient presents to the emergency department with nausea, vomiting, that is nargis continuous, 10 times since the onset of symptoms. Onset: The symptoms/episode began/occurred just prior to arrival, today. Possible causes: unknown. The symptoms are aggravated by nothing. The symptoms are alleviated by nothing. Associated signs and symptoms: Pertinent positives: nausea, vomiting. Severity of symptoms: At their worst the symptoms were moderate severe in the emergency department the symptoms are unchanged. The patient has experienced similar episodes in the past, a few times. Historical: - Allergies: 18:34 Codeine; hb 18:34 tramadol; hb 18:34 Tylenol-Codeine; hb - PMHx: 18:34 Alzheimers; COPD; Hernia; Pancreatitis; hb - PSHx: 18:34 Appendectomy; Adenoid excision; breast implants; Cholecystectomy; double masectomy; hb stomach surgery to prevent vomiting; Tonsillectomy; Total abdominal hysterectomy; - Immunization history:: Adult Immunizations unknown. - Infectious Disease History:: Denies. - Social history:: Smoking status: Patient denies any tobacco usage or history of. ROS: 19:43 Constitutional: Negative for fever, chills, and weight loss, Eyes: Negative for injury, nargis pain, redness, and discharge, ENT: Negative for injury, pain, and discharge, Neck: Negative for injury, pain, and swelling, Cardiovascular: Negative for chest pain, palpitations, and edema, Respiratory: Negative for shortness of breath, cough, wheezing, and pleuritic chest pain, Back: Negative for injury and pain, : Negative for injury, bleeding, discharge, and swelling, MS/Extremity: Negative for injury and deformity, Skin: Negative for injury, rash, and discoloration, Neuro: Negative for headache, weakness, numbness, tingling, and seizure, Psych: Negative for depression, anxiety, suicide ideation, homicidal ideation, and hallucinations, Allergy/Immunology: Negative for hives, rash, and allergies, Endocrine: Negative for neck swelling, polydipsia, polyuria, polyphagia, and marked weight changes, Hematologic/Lymphatic: Negative for swollen nodes, abnormal bleeding, and unusual bruising, 19:43 Abdomen/GI: Positive for nausea and vomiting, abdominal cramps, Exam: 19:43 Constitutional: This is a well developed, well nourished patient who is awake, alert, nargis and in no acute distress. Head/Face: Normocephalic, atraumatic. Eyes: Pupils equal round and reactive to light, extra-ocular motions intact. Lids and lashes normal. Conjunctiva and sclera are non-icteric and not injected. Cornea within normal limits. Periorbital areas with no swelling, redness, or edema. ENT: Nares patent. No nasal discharge, no septal abnormalities noted. Tympanic membranes are normal and external auditory canals are clear. Oropharynx with no redness, swelling, or masses, exudates, or evidence of obstruction, uvula midline. Mucous membranes moist. Neck: Trachea midline, no thyromegaly or masses palpated, and no cervical lymphadenopathy. Supple, full range of motion without nuchal rigidity, or vertebral point tenderness. No Meningismus. Chest/axilla: Normal chest wall appearance and motion. Nontender with no deformity. No lesions are appreciated. Cardiovascular: Regular rate and rhythm with a normal S1 and S2. No gallops, murmurs, or rubs. Normal PMI, no JVD. No pulse deficits. Respiratory: Lungs have equal breath sounds bilaterally, clear to auscultation and percussion. No rales, rhonchi or wheezes noted. No increased work of breathing, no retractions or nasal flaring. Back: No spinal tenderness. No costovertebral tenderness. Full range of motion. Skin: Warm, dry with normal turgor. Normal color with no rashes, no lesions, and no evidence of cellulitis. MS/ Extremity: Pulses equal, no cyanosis. Neurovascular intact. Full, normal range of motion. Neuro: Awake and alert, GCS 15, oriented to person, place, time, and situation. Cranial nerves II-XII grossly intact. Motor strength 5/5 in all extremities. Sensory grossly intact. Cerebellar exam normal. Normal gait. Psych: Awake, alert, with orientation to person, place and time. Behavior, mood, and affect are within normal limits. 19:43 ECG was reviewed by the Attending Physician. 19:43 Abdomen/GI: Inspection: abdomen appears normal, Bowel sounds: active, all quadrants, Palpation: mild abdominal tenderness, in the epigastric area, right upper quadrant and left upper quadrant, Liver: no appreciated palpable abnormalities, Hernia: not appreciated, Vital Signs: 18:32 BP 166 / 81; Pulse 68; Resp 16; Temp 98.2(TE); Pulse Ox 99% on R/A; Weight 52.62 kg; hb Height 5 ft. 4 in. ; Pain 0/10; 19:44 BP 102 / 76; Pulse 71; Resp 17; Pulse Ox 98% on R/A; me1 20:30 BP 153 / 63; Pulse 71; Resp 16; Pulse Ox 98% on R/A; me1 21:30 BP 156 / 59; Pulse 73; Resp 16; Pulse Ox 98% on R/A; me1 18:32 Body Mass Index 19.91 (52.62 kg, 162.56 cm) hb 18:32 Pain Scale: Adult hb MDM: 18:32 Patient medically screened. nargis 19:48 Differential diagnosis: Nonspecific abd pain, gastritis, cholecystitis, pancreatitis, nargis appendicitis, diverticulitis, viral gastroenteritis, gastroenteritis. Data reviewed: vital signs, nurses notes, lab test result(s), EKG, radiologic studies, CT scan, plain films. Consideration of Admission/Observation Patient was admitted/placed on observation. Escalation of care including admission/observation considered. I considered the following discharge prescriptions or medication management in the emergency department Medications were administered in the Emergency Department. See MAR. Independent interpretation of the following test(s) in the Emergency Department EKG: See my EKG interpretation above. Test considered but Not performed: Ultrasound NO ABD USG. Care significantly affected by the following chronic conditions: Chronic Obstructive Pulmonary Disease, ALZHEIMER, COPD, HERNIA, PANCREATITIS. Counseling: I had a detailed discussion with the patient and/or guardian regarding the historical points, exam findings, and any diagnostic results supporting the discharge/admit diagnosis, lab results, radiology results, the need for further work-up and treatment in the hospital. 02/14 18:33 Order name: Basic Metabolic Panel; Complete Time: 20:02 nargis 02/14 18:33 Order name: CBC with Diff; Complete Time: 19:39 [facility] 02/14 18:33 Order name: LFT's; Complete Time: 20:02 [facility] 02/14 18:33 Order name: Magnesium; Complete Time: 20:02 [facility] 02/14 18:33 Order name: NT PRO-BNP; Complete Time: 20:02 [facility] 02/14 18:33 Order name: PT-INR; Complete Time: 19:52 [facility] 02/14 18:33 Order name: Troponin HS; Complete Time: 20:02 [facility] 02/14 18:33 Order name: Lipase; Complete Time: 20:02 [facility] 02/14 18:33 Order name: Urinalysis w/ reflexes [facility] 02/14 21:08 Order name: Urinalysis w/ reflexes [facility] 02/14 21:08 Order name: CBC with Automated Diff [facility] 02/14 21:08 Order name: CBC with Automated Diff [facility] 02/14 21:08 Order name: Comprehensive Metabolic Panel [facility] 02/14 21:08 Order name: Comprehensive Metabolic Panel [facility] 02/14 19:21 Order name: CT Abd/Pelvis - IV Contrast Only [facility] 02/14 19:27 Order name: Abdomen Single View; Complete Time: 19:39 [facility] 02/14 18:33 Order name: EKG; Complete Time: 18:34 [facility] 02/14 18:33 Order name: Cardiac monitoring; Complete Time: 19:49 [facility] 02/14 18:33 Order name: EKG - Nurse/Tech; Complete Time: 19:49 [facility] 02/14 18:33 Order name: IV Saline Lock; Complete Time: 19:19 [facility] 02/14 18:33 Order name: Labs collected and sent; Complete Time: 19:19 [facility] 02/14 18:33 Order name: O2 Per Protocol; Complete Time: 19:19 [facility] 02/14 18:33 Order name: O2 Sat Monitoring; Complete Time: 19:19 [facility] EC:43 Rate is 59 beats/min. Rhythm is regular. QRS [place] is Normal. [place] interval is normal. QRS nargis interval is normal. QT interval is normal. No Q waves. T waves are Normal. No ST changes noted. Clinical impression: Sinus bradycardia and No evidence of ischemia. Interpreted by me. Reviewed by me. Administered Medications: 19:18 Drug: NS 0.9% IV 1000 ml IV at 1 bolus Per protocol; 1000 mL bolus Route: IV; Rate: 1 as6 bolus; Site: right antecubital; 21:49 Follow up: Response: No adverse reaction; IV Status: Completed infusion; IV Intake: me1 1000ml 19:19 Drug: Ondansetron IVP 4 mg IVP once; over 2 minutes Route: IVP; Site: right antecubital;as6 19:44 Follow up: Response: No adverse reaction; Nausea unchanged me1 19:44 Drug: Famotidine IVP 20 mg IVP once; dilute with 10 mL 0.9% NaCl; give over 2 minutes me1 Route: IVP; Site: right antecubital; 19:49 Follow up: Response: No adverse reaction me1 19:52 Drug: NS 0.9% IV 1000 ml IV at 125 ml/hr continuous Route: IV; Rate: 125 ml/hr; Site: or1 right antecubital; 22:47 Follow up: IV Status: Infusion continued upon admission me1 Disposition Summary: 02/15/24 20:04 Hospitalization Ordered Notes: Hospitalization Status: Observation nargis Provider: Tj Simpson cha Location: Telemetry/MedSurg (observation) nargis Condition: Stable nargis Problem: new nargis Symptoms: have improved nargis Bed/Room Type: Standard [facility] Room Assignment: 229(02/15/24 21:16) rv1 Diagnosis - Vomiting - INTRACTABLE nargis - Epigastric abdominal tenderness nargis Forms: - Medication Reconciliation Form nargis - SBAR form nargis - Leadership Thank You Letter nargis Signatures: Dispatcher [employer] EDSean Everett MD MD cha Baxter, Heather, RN RN Amador Rodriguez RN RN as6 Edna Hooks rv1 Sheridan Keenan RN RN me1 Corrections: (The following items were deleted from the chart) 18:34 18:34 BASIC METABOLIC PANEL+C.LAB.BRZ ordered. EDMS EDMS 18:34 18:34 CBC+H.LAB.BRZ ordered. EDMS EDMS 18:34 18:34 HEPATIC FUNCTION+C.LAB.BRZ ordered. EDMS EDMS 18:34 18:34 MAGNESIUM+C.LAB.BRZ ordered. EDMS EDMS 18:34 18:34 PROBNP+C.LAB.BRZ ordered. EDMS EDMS 18:34 18:34 PROTIME (+INR)+COAG.LAB.BRZ ordered. EDMS EDMS 18:34 18:34 Troponin High Sensitivity+C.LAB.BRZ ordered. EDMS EDMS 18:34 18:34 LIPASE+C.LAB.BRZ ordered. EDMS EDMS 18:34 18:34 Urinalysis+U.LAB.BRZ ordered. EDMS EDMS 19:27 18:34 Abdomen With Erect+RAD.RAD.BRZ ordered. EDMS EDMS 19:28 18:34 Chest Single View+RAD.RAD.BRZ ordered. EDMS EDMS 21:16 20:04 nargis rv1
--- NOTE | 2024-02-15 20:32 | RAD REPORT ---
EXAM DESCRIPTION: CTAbdomen Pelvis W Contrast - 02/15/2024 8:17 pm CLINICAL HISTORY: Abdominal pain. Abd pain;Nausea / vomiting COMPARISON: Abdomen Pelvis W Contrast dated 06/08/2023; Abdomen Pelvis W Contrast dated 04/29/2023 ; Abdomen Pelvis W Contrast dated 04/14/2022; Abdomen Pelvis W Contrast dated 04/20/2021 TECHNIQUE: Biphasic CT imaging of the abdomen and pelvis was performed with 100 ml non-ionic IV cont rast. All CT scans are performed using dose optimization technique as appropriate and may include automated exposure control or mA/KV adjustment according to patient size. FINDINGS: The lung bases are clear.Small hiatal hernia. Cholecystectomy clips. The liver, spleen, pancreas, adrenal glands and kidneys are within normal limits. No bowel obstruction, free air, free fluid or abscess. Multiple diverticular present in the region of the sigmoid colon with wall thickening. This could indicate mild diverticulitis. The appendix is nor mal. No evidence of significant lymphadenopathy. Mild lumbar degenerative changes. IMPRESSION: Mild acute sigmoid diverticulitis is possible. No abscess or other evidence of complicat ion.
[2024-02-15] MEDS ORDERED: ACETAMINOPHEN 325 MG TABLET PO PRN (21:03)
--- NOTE | 2024-02-15 21:18 | P.HP ---
Certification for Inpatient Patient admitted to: Observation With expected LOS: <2 Midnights Practitioner: I am a practitioner with admitting privileges, knowledge of patient current condition, hospital course, and medical plan of care. Services: Services provided to patient in accordance with Admission requirements found in Title 42 Section 412.3 of the Code of Federal Regulations Patient History Date of Service: 02/15/24 Reason for admission: Abdominal pain History of Present Illness: 83 yrs old Female with past medical history of dementia, COPD, hernia, history of pancreatitis was brought to ER with abdominal pain and worsening of nausea and vomiting. Patient stated that symptoms started today. Started having abdominal discomfort. Left lower quadrant. Pain is colicky and intermittent. At the time of interview pain is slightly better. Associated with intractable nausea and vomiting. Denies any fever or chills. No chest pain or shortness of breath. No sick contacts. Patient was assessed in the ER and was found to have possible diverticulitis with intractable nausea and vomiting and was admitted for further management Allergies codeine Allergy (Verified 11/01/23 13:19) Nausea/Vomiting acetaminophen [From Tylenol] Adverse Reaction (Verified 11/01/23 13:19) Nausea/Vomiting tramadol Adverse Reaction (Verified 11/01/23 13:19) Nausea/Vomiting Home medications list reviewed: Yes Home Medications: Promethazine Tab [Phenergan*] 25 mg PO Q12H PRN #10 tab 01/25/21 Omeprazole 1 cap PO DAILY 07/27/22 Famotidine [Pepcid] 20 mg PO DAILY 11/01/23 Melatonin 1 mg PO BEDTIME 11/01/23 Meperidine HCl 50 mg PO DAILYPRN PRN 11/01/23 - Past Medical/Surgical History Diabetic: No Past Medical History: Reviewed- Non-Contributory -: COPD -: Alzheimer's disease -: pancreatitis -: liver cirrhosis -: kidney disease -: bladder Past Surgical History: Reviewed- Non-Contributory -: tonsilectomy -: appendectomy -: double mastectomy with reconstruction -: cholecystectomy -: gall bladder removed 2002 -: abdominal surgery Psychosocial/ Personal History: Lives at home with her daughter - Family History Family History: Reviewed- Non-Contributory - Family History Mother Notes: ALZHEIMERS Brother -: GI disease Notes: internal bleeding - Social History Smoking Status: Former smoker Alcohol use: No CD- Drugs: No Caffeine use: Yes Review of Systems 10-point ROS is otherwise unremarkable Physical Examination - Vital Signs Temperature: 98.2 F Blood Pressure: 162/82 Pulse: 76 Respirations: 18 Pulse Ox (%): 94 - Physical Exam General: Alert, Oriented x2, Mild distress HEENT: Atraumatic, Normocephalic Neck: Supple, JVD not distended Respiratory: Clear to auscultation bilaterally, Normal air movement Cardiovascular: Normal pulses, Regular rate/rhythm, Normal S1 S2 Capillary refill: <2 Seconds Gastrointestinal: W/out hepatosplenomegaly, No rebound, No guarding, Tenderness Musculoskeletal: No clubbing, No swelling Integumentary: No rashes, No breakdown Neurological: Normal speech, Normal strength at 5/5 x4 extr, Cranial nerves 3-12 intact Lymphatics: No axilla or inguinal lymphadenopathy - Studies Laboratory Data (last 24 hrs) 02/15/24 02/15/24 02/15/24 19:17 19:17 19:17 WBC 9.40 Hgb 13.4 Hct 39.8 Plt Count 240 PT 11.2 INR 1.02 Sodium 137 Potassium 4.2 BUN 9 Creatinine 0.96 Glucose 195 H Magnesium 2.0 Total Bilirubin 0.5 AST 22 ALT 23 Alkaline Phosphatase 83 Lipase 47 Assessment and Plan - Problems (Diagnosis) (1) Diverticulitis Current Visit: Yes Status: Acute Plan: Diverticulitis Acute Sigmoid diverticulitis with no perforation Started on IV antibiotic Pain control Monitor closely under telemetry Surgical consult if pain worsens Intractable nausea and vomiting Started on Zofran IV hydration Dementia COPD History of pancreatitis Continue home medications and titrate as needed Supportive management Hypertension Antihypertensives titrated Continue home medications and titrate as needed GI/DVT prophylaxis Advanced directive full code Discharge Plan: Home Plan to discharge in: 48 Hours - Advance Directives Does patient have a Living Will: No Does patient have a Durable POA for Healthcare: No - Code Status/Comfort Care Code Status: Full Code Time Spent Managing Pts Care (In Minutes): 48
[2024-02-15] MEDS: NA CHLORIDE 0.9% 1,000 ML IV SCH (23:23)
[2024-02-15] MEDS: ONDANSETRON 4 MG/2 ML VIAL IV PRN (23:23)
[2024-02-15] MEDS: PIPER TAZO 3.375 GM in NA CHLORIDE 0.9% 100 ML IV ONE (23:33)
[2024-02-16 02:47] VITALS: BMI 19.9
[2024-02-16 04:03] LABS: Absolute Lymphocytes (CBC) 1.4 K/uL (0.7-4.9); Absolute Monocytes 0.3 K/uL (0.1-1.3); Basophils % 0.3 % (0-1.3); Eosinophils % 0.2 % (0-4.4); Hematocrit 36.9 % (36.0-45.0); Hemoglobin 12.6 g/dL (12.0-15.0); Lymphocytes % 23.9 % (15.3-44.8); MCH 31.2 pg (27.0-35.0); MCHC 34.2 g/dL (32.0-36.0); MCV 91.3 fL (80-100); MPV 7.8 fL (7.6-11.3); Neutrophils % 69.6 % (41.7-73.7); Platelets 246 thou/uL (152-406); RBC Red Blood Cell Count 4.04 M/uL (3.86-4.86); Red Cell Distribution Width 13.7 % (12.1-15.2)
[2024-02-16 04:19] LABS: Albumin 3.1 g/dL (3.4-5.0); Anion Gap 7.9 mEq/L (5.0-15.0); Bilirubin Total 0.6 mg/dL (0.2-1.0); Globulin 3.2 g/dL (2.3-3.5); Potassium 3.9 mEq/L (3.5-5.1); Protein, Total 6.3 g/dL (6.4-8.2)
[2024-02-16 09:04] VITALS: O2SAT 98
[2024-02-16] MEDS: POTASSIUM CL SA 10 MEQ TAB PO ONE (10:29)
[2024-02-16] MEDS: PIPER TAZO 3.375 GM in NA CHLORIDE 0.9% 100 ML IV SCH (10:30)
--- NOTE | 2024-02-16 12:02 | P.PN ---
Subjective Date of Service: 02/16/24 Chief Complaint: Abdominal pain Patient states she feels better today. She denies any nausea. She tolerated breakfast without vomiting. She denies abdominal pain. Physical Examination - Vital Signs Temperature: 98.9 F Blood Pressure: 122/72 Pulse: 64 Respirations: 15 Pulse Ox (%): 98 - Studies Laboratory Data (last 24 hrs) 02/15/24 02/15/24 02/15/24 19:17 19:17 19:17 WBC 9.40 Hgb 13.4 Hct 39.8 Plt Count 240 PT 11.2 INR 1.02 Sodium 137 Potassium 4.2 BUN 9 Creatinine 0.96 Glucose 195 H Magnesium 2.0 Total Bilirubin 0.5 AST 22 ALT 23 Alkaline Phosphatase 83 Lipase 47 Assessment And Plan - Plan Physical examination General: Alert and oriented x3, NAD, HEENT: Conjunctiva not pale, anicteric sclera Neck: Supple, no elevated JVD Heart: Heart sounds 1 and 2 normal, regular rhythm, normal rate, no pedal edema Lungs: Clear to auscultation bilaterally, adequate breath sounds bilaterally, no rhonchi or crackles. Abdomen: Soft, nondistended, nontender, normal bowel sounds. Extremities: No tenderness, no deformity Skin: Normal skin turgor, no rash, no nodules or ulcers. Neuro: No focal motor deficit. Normal speech. Psychiatry: Normal mood, no agitation. Assessment and plan Acute diverticulitis Acute Sigmoid diverticulitis with no perforation Continue IV Zosyn Analgesics as needed Diet as tolerated Intractable nausea and vomiting Resolved. IV Zofran as needed On IV hydration Dementia COPD History of pancreatitis Stable Normal lipase. Continue home medications. Supportive management Hypertension Continue home antihypertensives. DVT prophylaxis: Lovenox Advanced directive full code
--- NOTE | 2024-02-16 16:46 | P.DS ---
Admission Date: 02/15/24 Discharge Date: 02/16/24 Disposition: ROUTINE DISCHARGE Discharge Condition: FAIR Reason for Admission: Abdominal pain - Problems (1) Acute diverticulitis of intestine Status: Acute (2) Alzheimers disease Status: Chronic (3) Nausea and vomiting Status: Acute Brief History of Present Illness: 83 yrs old Female with past medical history of dementia, COPD, hernia, history of pancreatitis was brought to ER with abdominal pain and worsening of nausea and vomiting. Pain located in the left lower quadrant. CT abdomen and pelvis done in the ED demonstrated acute sigmoid diverticulitis. Patient was hospitalized for further management. Hospital Course: Patient was placed on observation on the medical floor and treated with IV zosyn and IV hydration with normal saline. Patient's symptoms resolved. She did not experience any more nausea or vomiting. She tolerated solid diet and requested to go home. Patient's vitals are stable. She is discharged with oral Cipro and Flagyl to continue treatment for acute diverticulitis. Vital Signs/Physical Exam: Temp Pulse Resp BP Pulse Ox 98.9 F 64 15 122/72 98 02/16/24 12:02 02/16/24 12:02 02/16/24 12:02 02/16/24 12:02 02/16/24 12:02 General: Alert, In no apparent distress, Oriented x3 HEENT: Mucous membr. moist/pink Neck: Supple, JVD not distended Respiratory: Clear to auscultation bilaterally, Normal air movement Cardiovascular: No edema, Regular rate/rhythm, Normal S1 S2 Gastrointestinal: Normal bowel sounds, Soft and benign, Non-distended Musculoskeletal: No swelling Integumentary: No breakdown, No cyanosis Neurological: Normal strength at 5/5 x4 extr Laboratory Data at Discharge: WBC 5.70 thou/uL (4.3-10.9) 02/16/24 03:37 Hgb 12.6 g/dL (12.0-15.0) 02/16/24 03:37 Hct 36.9 % (36.0-45.0) 02/16/24 03:37 Plt Count 246 thou/uL (152-406) 02/16/24 03:37 PT 11.2 SECONDS (9.5-12.5) 02/15/24 19:17 INR 1.02 02/15/24 19:17 Sodium 139 mEq/L (136-145) 02/16/24 03:37 Potassium 3.9 mEq/L (3.5-5.1) 02/16/24 03:37 BUN 8 mg/dL (7-18) 02/16/24 03:37 Creatinine 0.85 mg/dL (0.55-1.02) 02/16/24 03:37 Glucose 124 mg/dL (74-106) H 02/16/24 03:37 Magnesium 2.0 mg/dL (1.6-2.4) 02/15/24 19:17 Total Bilirubin 0.6 mg/dL (0.2-1.0) 02/16/24 03:37 AST 11 U/L (15-37) L 02/16/24 03:37 ALT 20 U/L (13-56) 02/16/24 03:37 Alkaline Phosphatase 78 U/L (45-117) 02/16/24 03:37 Lipase 47 U/L (13-75) 02/15/24 19:17 Home Medications: Omeprazole 1 cap PO DAILY 07/27/22 Melatonin 1 mg PO BEDTIME 11/01/23 Ciprofloxacin HCl [Cipro] 500 mg PO BID #12 tab 02/16/24 Tramadol HCl [Ultram] 50 mg PO DAILY 02/16/24 metroNIDAZOLE [Flagyl] 500 mg PO Q8H #18 tab 02/16/24 New Medications: Ciprofloxacin HCl [Cipro] 500 mg PO BID #12 tab metroNIDAZOLE [Flagyl] 500 mg PO Q8H #18 tab Physician Discharge Instructions: PROBLEM: Diverticulitis, Nausea, Vomiting GOAL: Clear understanding of disease process INSTRUCTIONS: Diet: AHA Activity: Ad taty FOLLOW UP WITH PRIMARY CARE PROVIDER IN 1-2 WEEKS CALL 2ND FLOOR NURSE'S STATION FOR ANY QUESTIONS ABOUT YOUR VISIT RETURN TO ER FOR ANY EMERGENCY DIET TOLERATED - INSTRUCTIONS ATTACHED PRESCRIPTIONS SENT TO PHARMACY - TAKE PRESCRIBED Diet: AHA Activity: Ad taty Followup: NONE,NONE [Primary Care Provider] - 1-2 Weeks Time spent managing pt's care (in minutes): 27
[2024-02-16 17:03] VITALS: BP 125/58; TEMP 98
[2024-02-17] MEDS ORDERED: ENOXAPARIN 40 MG/0.4 ML SQ SCH (09:00)
--- NOTE | 2024-02-18 15:01 | EKG ---
Test Date: 2024-02-15 Test Time: 19:33:59 Senior Property Accountant: ANIBAL MEASUREMENT RESULTS: Intervals: Rate: 59 [place]: 164 QRSD: 70 QT: 464 QTc: 459 [place]: P: 73 [place]: 164 QRS: 65 T: 74 INTERPRETIVE STATEMENTS: Sinus bradycardia Otherwise normal ECG Compared to ECG 11/01/2023 09:28:46 Sinus rhythm no longer present Electronically Signed On 02-18-24 14:53:28 CDT by Kiran Catherine
== END 2024-02-16 18:37 | disposition home or self-care (01) ==
LOC: ER 18:26 → ERHOLD 21:03 → 2ND 22:22
PROVIDERS: ADMIT Family Medicine; ATTEND Internal Medicine
DX: K57.32 Diverticulitis of large intestine without perforation or abscess without bleeding (principal); R10.32 Left lower quadrant pain; R11.2 Nausea with vomiting, unspecified; I10 Essential (primary) hypertension; G30.9 Alzheimer's disease, unspecified; F02.80 Dementia in other diseases classified elsewhere, unspecified severity, without behavioral disturbance, psychotic disturbance, mood disturbance, and anxiety; J44.9 Chronic obstructive pulmonary disease, unspecified; K85.90 Acute pancreatitis without necrosis or infection, unspecified; K46.9 Unspecified abdominal hernia without obstruction or gangrene; Z88.5 Allergy status to narcotic agent; Z88.6 Allergy status to analgesic agent; Z87.891 Personal history of nicotine dependence
CPT/HCPCS: 96361; 93005; 85025 ×2; 80048; 36415; 83735; 85610; 80076; 84484; 83690; 80053; 83880; 74177; 74018; 94760 ×2; 96375; 96374; 99285; Q9967; J2543 ×2; J2405 ×3; J7030 ×3; G0378 ×3

== ENCOUNTER 2024-05-06 13:00 | Emergency (ER) | payer OTHER, BC ==
--- OUTSIDE RECORDS SUMMARY | 2024-05-06 13:03 | XMS REPORT | Continuity of Care Document ---
Author Name Unknown Address [address] [facility]. [address] [place] [address] [facility] thconnect Address [address] [facility] [place] [address] Care Team Providers Care Grill Attendant Name Role Phone PCP, PATIENT DOES NOT HAVE A Primary Care Physic padmini Unavailable Seamus Castro MD Attending Clinician [phone] [email or web address] Attending Clinician UnavailNIECY Barber Attending Clinician Unavailab Niecy Collazo DO Attending Clinician [phone] RADIOLOGY Attending Clinician Unavailable Radiology Attending Clinician Unavailable MIKHAIL HURTADO Attending Clinician Unavailab sil [email or web address]_S Admitting Clinician UnavailNIECY Barber Admitting Clinician Unavailab MEKA Ricks Admitting Clinician Unavailable MIKHAIL HURTADO Admitting Clinician Unavailab le Payers Payer Name Policy Type Policy Number Effective Date Expirati on Date Source MEDICARE PART A \T\ B [id number] 2004 00:00:00 BCBS TRADITIONAL [id number] 2017 00:00:00 Problems Condition Name Condition Details Condition Category Status Onset Date Resolution Date Last Treatment Date Treating Clinician Comments Source No known active problems No known active problems Disease [facility] Allergies, Adverse Reactions, Alerts Allergy Name Allergy Type Status Severity Reaction(s) Onset Date Inactive Date Treating Clinician Comments Source CODEINE DRUG INGREDI Active N/V 09-18 00:00: 00 [facility] Codeine Propensi ty to adverse reaction s Active Nausea and/or Vomiting 09-18 00:00: 00 [facility] NO KNOWN ALLERGIE S Drug Class Active [facility] Social History Social Habit Start Date Stop Date Quantity Comments Source Gender identity 2023-11-25 02:02:51 Identifies as female gender (finding) [facility] History of tobacco use Current smoker [facility] Sexual orientation [facility] History of Social function 2023-12-11 00:00:00 2023-12-11 00:00:00 [facility] Exposure to SARS-CoV-2 (event) 2022-09-08 00:00:00 2022-09-18 09:01:00 Not sure [facility] Sex Assigned At 1940 00:00:00 1940 00:00:00 [facility] Smoking Status Start Date Stop Date Source Ex-smoker [facility] Tobacco smoking consumption unknown [facility] Medications Ordered Medication Name Filled Medication Name Start Date Stop Date Current Medication? Ordering Clinician Indication Dosage Frequency Signature (SIG) Comments Components Source mirtazapine (Remeron) 15 MG tablet mirtazapine (Remeron) 15 MG tablet 04-18 00:00: 00 Yes 15mg TAKE ONE (1) TABLET(S) BY MOUTH DAILY AT BEDTIME. Layton Garcia [facility] donepezil (Aricept) 5 MG tablet donepezil (Aricept) 5 MG tablet 2022-09 00:00: 00 Yes See Instructio ns, TAKE ONE (1) TABLET(S) BY MOUTH DAILY., # 30 ea, 3 Refill(s), Pharmacy: [facility], 162.56, cm, 06/14/23 9:48:00 CDT, Height, 61.023, kg, 06/14/23 9:48:00 CDT, Weight Layton Garcia [facility] memantine (Namenda) 5 MG tablet memantine (Namenda) 5 MG tablet 2022-09 00:00: 00 Yes See Instructio ns, TAKE ONE (1) TABLET(S) BY MOUTH TWICE A DAY., # 60 ea, 3 Refill(s), Pharmacy: [id number], 162.56, cm, 06/14/23 9:48:00 CDT, Height, 61.023, kg, 06/14/23 9:48:00 CDT, Weight Layton jamar Villaseñor omeprazole (PriLOSEC) [address] capsule omeprazole (PriLOSEC) [address] capsule 02-08 00:00: 00 Yes TAKE ONE (1) CAPSULE(S) BY MOUTH DAILY NEEDED. Darlinval jamar Woodlandveronica Villaseñor No known medications 09-18 09:05: 08 No No known medication s [facility] gadoteridol (PROHANCE-1 5 mL) injection 0.2 mL/kg 2019-09 21:45: 00 08-12 22:15 :00 No .2mL/kg 0.2 mL/kg, Intravenou s, ONCE, 1 dose, Leni 08/12/20 at 1545, Routine [facility] Vital Signs Vital Name Observation Time Observation Value Comments S ource Heart rate 2022-09-18 16:44:00 62 /min [facility] Respiratory rate 2022-09-18 16:44:00 20 /min [facility] Oxygen saturation in Arterial blood by Pulse oximetry 2022-09-18 16:44:00 99 /min [facility] Systolic blood pressure 2022-09-18 16:00:18 153 mm[Hg] [facility] Diastolic blood pressure 2022-09-18 16:00:18 86 mm[Hg] [facility] Body temperature 2022-09-18 15:03:00 36.89 Keesha [facility] Body height 2022-09-18 15:03:00 160 cm [facility] Body weight 2022-09-18 15:03:00 53.524 kg [facility] BMI 2022-09-18 15:03:00 20.90 kg/m2 [facility] Procedures Procedure Date / Time Performed Performing Clinicia n Source CT TRAUMA HEAD WO CONTRAST 2022-09-18 15:55:32 Niecy Ball [facility] CT TRAUMA CERVICAL SPINE WO CONTRAST 2022-09-18 15:55:32 Niecy Ball [facility] XR SHOULDER <2 VW LEFT 2022-09-18 15:40:40 Ashley Ball [facility] NOTICE OF PRIVACY PRACTICES 2022-09-18 14:59:10 Doctor Unassigned, [place] [facility] CONSENT/REFUSAL FOR DIAGNOSIS AND TREATMENT 2022-09-18 14:58:45 Doctor Unassigned, [place] [facility] MR ABDOMEN W WO CONTRAST MRCP 2020-08-12 22:16:07 Requisition, Paper [facility] NOTICE OF PRIVACY PRACTICES 2020-08-12 21:10:37 Doctor Unassigned, [place] [facility] CONSENT/REFUSAL FOR DIAGNOSIS AND TREATMENT 2020-08-12 21:10:07 Doctor Unassigned, [place] [facility] ASSIGNMENT OF BENEFITS 2020-08-12 21:09:46 Docto r Unassigned, [place] [facility] Encounters Start Date/Time End Date/Time Encounter Type Admission Type Attending [facility] Facility Care Department Encounter ID Source 2024-04-17 00:00:00 2024-04-18 10:18:36 Seamus Patel [id number] Layton Garcia [facility] 2023-07-03 00:00:00 2023-07-03 00:00:00 Outpatient [email or web address] diyala_S PRIV PRIV [id number] [facility] 2023-07-02 00:00:00 2023-07-02 00:00:00 Outpatient [email or web address] diyala_S PRIV PRIV [id number] [facility] 2022-09-18 09:05:00 2022-09-18 10:46:00 Emergency X NIECY BALL [facility] ERT [id number] [facility] 2022-09-18 09:05:00 2022-09-18 10:46:00 Emergency Niecy Ball [facility] 1..840.114 [id number] [facility] 2020-08-12 15:11:31 2020-08-12 23:59:00 Outpatient R RADIOLOGY [facility] [id number] [facility] 2020-08-12 15:00:00 2020-08-12 23:59:00 Hospital Encounter Radiology [facility] [id number] 2020-08-12 15:00:00 2020-08-12 23:59:00 Hospital Encounter Radiology [facility] [id number] [facility] Results Test Description Test Time Test Comments [...] without and with contrast including MRCP studies. [facility], Radiant Results Inft User - 08/12/2020 [...] without and with contrast including MRCP studies. [facility] [id number] 09:33:00* Test Item Value Reference Range Interpretation [...] assessment and management of chronic kidney failure. [facility] Notes Date/Time Note Provider Source [facility] 10:18:46* [id number] 10:18:31 Medication filled, please call patient and have them schedule a follow up. Adeel Woodland
--- NOTE | 2024-05-06 14:51 | ER ---
Nurse's Notes [facility] Name: Milan Weir Age: 84 yrs Sex: Female : 1940 Arrival Date: 05/06/2024 Time: 13:00 Bed IW10 Private MD: Diagnosis: Presentation: 05/06 13:13 Chief complaint: Patient states: LEFT EYE PAIN X 2 DAYS. NOTED REDNESS AND DRAINAGE. db Coronavirus screen: Client denies travel out of the [place] in the last 14 days. At this time, the client does not indicate any symptoms associated with coronavirus-19. Ebola Screen: Patient negative for fever greater than or equal to 101.5 degrees Fahrenheit, and additional compatible Ebola Virus Disease symptoms Patient denies exposure to infectious person. Patient denies travel to an Ebola-affected area in the 21 days before illness onset. No symptoms or risks identified at this time. Initial Sepsis Screen: Does the patient meet any 2 criteria? No. Patient's initial sepsis screen is negative. Does the patient have a suspected source of infection? No. Patient's initial sepsis screen is negative. Risk Assessment: Do you want to hurt yourself or someone else? Patient reports no desire to harm self or others. Onset of symptoms was May 06, 2024. 13:13 Method Of Arrival: Ambulatory db 13:13 Acuity: JARRETT 4 db Triage Assessment: 13:14 General: Appears in no apparent distress. uncomfortable, Behavior is calm, cooperative. db Pain: Complains of pain in left eye. EENT: Eyes are tearing on outer aspect of conjuctiva of left eye and inner aspect of conjunctiva of left eye with exudate noted from inner aspect of conjunctiva of left eye. Neuro: Level of Consciousness is awake, alert, obeys commands, Oriented to person, place, time, situation. Historical: - Allergies: 13:14 Codeine; db 13:14 tramadol; db 13:14 Tylenol-Codeine; db - PMHx: 13:14 Alzheimers; COPD; Hernia; Pancreatitis; db - PSHx: 13:14 breast implants; Cholecystectomy; double masectomy; Appendectomy; stomach surgery to db prevent vomiting; Tonsillectomy; Adenoid excision; Total abdominal hysterectomy; - Immunization history:: Adult Immunizations unknown. - Infectious Disease History:: Denies. - Social history:: Smoking status: Patient/guardian denies using tobacco, the patient reports quitting approximately 20 years ago. Vital Signs: 13:13 BP 143 / 75; Pulse 73; Resp 16; Temp 97.8; Pulse Ox 98% ; Weight 52.62 kg; Height 5 ft. db 4 in. ; 13:13 Body Mass Index 19.91 (52.62 kg, 162.56 cm) db ED Course: 13:03 Patient arrived in ED. mr 13:14 Triage completed. db 13:14 Arm band placed on left wrist. Patient placed in waiting room. db 13:20 Chace Sepulveda MD is Attending Physician. rt Administered Medications: No medications were administered Outcome: 14:51 Patient left the ED. bc6 Signatures: Ivonne Cota Reg Reg mr Sridevi Rodriguez, RN RN db Chace Sepulveda MD MD rt Keesha Nick bc6 Corrections: (The following items were deleted from the chart) 13:15 13:14 Social history: Smoking status: Patient denies any tobacco usage or history of. dbdb
[2024-05-06 15:20] VITALS: BP 143/75; TEMP 97.8; O2SAT 98
== END 2024-05-06 14:51 | disposition left against medical advice (07) ==
LOC: ER 13:00
DX: Z53.21 Procedure and treatment not carried out due to patient leaving prior to being seen by health care provider (principal)
CPT/HCPCS: 99281

== ENCOUNTER 2024-06-08 23:15 | Emergency (ER) | payer OTHER, BC ==
--- OUTSIDE RECORDS SUMMARY | 2024-06-08 23:18 | XMS REPORT | Continuity of Care Document ---
Author Name Unknown Address [address] [facility]. [address] [place] [address] [facility] thconnect Address [address] [facility]. [address] [place] [address] Care Team Providers Care Agricultural Labor Camp Manager Name Role Phone PCP, PATIENT DOES NOT HAVE A Primary Care Physic padmini Unavailable Seamus Castro MD Attending Clinician [phone] [email or web address]_S Attending Clinician UnavailNIECY Barber Attending Clinician Unavailab Niecy Collazo DO Attending Clinician [phone] RADIOLOGY Attending Clinician Unavailable Radiology Attending Clinician Unavailable MIKHAIL HURTADO Attending Clinician Unavailab sil [email or web address]_S Admitting Clinician UnavailNIECY Barber Admitting Clinician Unavailab MEKA Ricks Admitting Clinician Unavailable MIKHAIL HURTADO Admitting Clinician Unavailab le Payers Payer Name Policy Type Policy Number Effective Date Expirati on Date Source MEDICARE PART A \T\ B [id number] 2004 00:00:00 BCBS TRADITIONAL [id number] 2017 00:00:00 Problems Condition Name Condition Details Condition Category Status Onset Date Resolution Date Last Treatment Date Treating Clinician Comments Source No known active problems No known active problems Disease [facility] Allergies, Adverse Reactions, Alerts Allergy Name Allergy Type Status Severity Reaction(s) Onset Date Inactive Date Treating Clinician Comments Source CODEINE DRUG INGREDI Active N/V 09-18 00:00: 00 [facility] Codeine Propensi ty to adverse reaction s Active Nausea and/or Vomiting 09-18 00:00: 00 [facility] NO KNOWN ALLERGIE S Drug Class Active [facility] Social History Social Habit Start Date Stop Date Quantity Comments Source Gender identity 2023-11-25 02:02:51 Identifies as female gender (finding) [facility] History of tobacco use Current smoker [facility] Sexual orientation [facility] History of Social function 2023-12-11 00:00:00 2023-12-11 00:00:00 [facility] Exposure to SARS-CoV-2 (event) 2022-09-08 00:00:00 2022-09-18 09:01:00 Not sure [facility] Sex Assigned At 1940 00:00:00 1940 00:00:00 [facility] Smoking Status Start Date Stop Date Source Ex-smoker [facility] Tobacco smoking consumption unknown [facility] Medications Ordered Medication Name Filled Medication Name Start Date Stop Date Current Medication? Ordering Clinician Indication Dosage Frequency Signature (SIG) Comments Components Source mirtazapine (Remeron) 15 MG tablet mirtazapine (Remeron) 15 MG tablet 04-18 00:00: 00 Yes 15mg TAKE ONE (1) TABLET(S) BY MOUTH DAILY AT BEDTIME. Layton Garcia [facility] donepezil (Aricept) 5 MG tablet donepezil (Aricept) 5 MG tablet 2022-09 00:00: 00 Yes See Instructio ns, TAKE ONE (1) TABLET(S) BY MOUTH DAILY., # 30 ea, 3 Refill(s), Pharmacy: [facility], 162.56, cm, 06/14/23 9:48:00 CDT, Height, 61.023, kg, 06/14/23 9:48:00 CDT, Weight Layton Garcia [facility] memantine (Namenda) 5 MG tablet memantine [...] CAPSULE(S) BY MOUTH DAILY NEEDED. Darlinval jamar Maricopaveronica Villaseñor No known medications 09-18 09:05: 08 No No known medication s [facility] gadoteridol (PROHANCE-1 5 mL) injection 0.2 mL/kg 2019-09 21:45: 00 08-12 22:15 :00 No .2mL/kg 0.2 mL/kg, Intravenou s, ONCE, 1 dose, Leni 08/12/20 at 1545, Routine [facility] Vital Signs Vital Name Observation Time Observation Value Comments S ource Heart rate 2022-09-18 16:44:00 62 /min [facility] Respiratory rate 2022-09-18 16:44:00 20 /min [facility] Oxygen saturation in Arterial blood by Pulse oximetry 2022-09-18 16:44:00 99 /min [facility] Systolic blood pressure 2022-09-18 16:00:18 153 mm[Hg] [facility] Diastolic blood pressure 2022-09-18 16:00:18 86 mm[Hg] [facility] Body temperature 2022-09-18 15:03:00 36.89 Keesha [facility] Body height 2022-09-18 15:03:00 160 cm [facility] Body weight 2022-09-18 15:03:00 53.524 kg [facility] BMI 2022-09-18 15:03:00 20.90 kg/m2 [facility] Procedures Procedure Date / Time Performed Performing Clinicia n Source CT TRAUMA HEAD WO CONTRAST 2022-09-18 15:55:32 Niecy Ball [facility] CT TRAUMA CERVICAL SPINE WO CONTRAST 2022-09-18 15:55:32 Niecy Ball [facility] XR SHOULDER <2 VW LEFT 2022-09-18 15:40:40 Ashley Ball [facility] NOTICE OF PRIVACY PRACTICES 2022-09-18 14:59:10 Doctor Unassigned, [place] [facility] CONSENT/REFUSAL FOR DIAGNOSIS AND TREATMENT 2022-09-18 14:58:45 Doctor Unassigned, [place] [facility] MR ABDOMEN W WO CONTRAST MRCP 2020-08-12 22:16:07 Requisition, Paper [facility] NOTICE OF PRIVACY PRACTICES 2020-08-12 21:10:37 Doctor Unassigned, [place] [facility] CONSENT/REFUSAL FOR DIAGNOSIS AND TREATMENT 2020-08-12 21:10:07 Doctor Unassigned, [place] [facility] ASSIGNMENT OF BENEFITS 2020-08-12 21:09:46 Docto r Unassigned, [place] [facility] Encounters Start Date/Time End Date/Time Encounter Type Admission Type Attending [facility] Facility Care Department Encounter ID Source 2024-04-17 00:00:00 2024-04-18 10:18:36 Seamus Patel [id number] Layton Garcia [facility] 2023-07-03 00:00:00 2023-07-03 00:00:00 Outpatient [email or web address] diyala_S PRIV PRIV [id number] [facility] 2023-07-02 00:00:00 2023-07-02 00:00:00 Outpatient [email or web address] diyala_S PRIV PRIV [id number] [facility] 2022-09-18 09:05:00 2022-09-18 10:46:00 Emergency X NIECY BALL [facility] ERT [id number] [facility] 2022-09-18 09:05:00 2022-09-18 10:46:00 Emergency Niecy Ball [facility] 1..840.114 350.1.13.10 [id number] [facility] 2020-08-12 15:11:31 2020-08-12 23:59:00 Outpatient R RADIOLOGY [facility] [id number] [facility] 2020-08-12 15:00:00 2020-08-12 23:59:00 Hospital Encounter Radiology [facility] [id number] [id number] [facility] 2020-08-12 15:00:00 2020-08-12 23:59:00 Hospital Encounter Radiology [facility] [id number] [id number] [id number] Results Test Description Test Time Test Comments [...] without and with contrast including MRCP studies. [facility], Radiant Results Inft User - 08/12/2020 4:29 [...] contrast including MRCP studies. [facility]AT[facility], [id number] 09:33:00* Test Item Value Reference Range Interpretation [...] assessment and management of chronic kidney failure. [facility] Notes Date/Time Note Provider [id number] 10:18:46* [id number] 10:18:31 Medication filled, please call patient and have them schedule a follow up. Adeel Maricopa
[2024-06-08] MEDS ORDERED: METOCLOPRAMIDE 10 MG/2mL INJ ONE (23:30)
[2024-06-08] MEDS ORDERED: DIPHENHYDRAMINE 50 MG/ML VIAL ONE (23:30)
[2024-06-08] MEDS ORDERED: FAMOTIDINE 20 MG/2 ML VIAL IV ONE (23:30)
[2024-06-08 23:57] LABS: Absolute Eosinophils 0.4 K/uL (0-0.5); Absolute Lymphocytes (CBC) 1.6 K/uL (0.7-4.9); Absolute Monocytes 0.6 K/uL (0.1-1.3); Absolute Neutrophil 5.9 K/uL (1.8-8.0); Basophils % 0.5 % (0-1.3); Eosinophils % 4.3 % (0-4.4); Hematocrit 37.6 % (36.0-45.0); Hemoglobin 12.9 g/dL (12.0-15.0); Lymphocytes % 18.6 % (15.3-44.8); MCH 31.9 pg (27.0-35.0); MCHC 34.4 g/dL (32.0-36.0); MCV 92.7 fL (80-100); MPV 7.2 fL (7.6-11.3); Monocytes % 6.7 % (3.3-12.3); Neutrophils % 69.9 % (41.7-73.7); Platelets 283 thou/uL (152-406); RBC Red Blood Cell Count 4.06 M/uL (3.86-4.86); Red Cell Distribution Width 13.9 % (12.1-15.2)
[2024-06-09 00:02] LABS: PT Prothrombin Time 10.9 SECONDS (9.4-12.5); Protime INR 0.97
[2024-06-09 00:08] LABS: Albumin 3.3 g/dL (3.4-5.0); Alkaline Phosphatase 90 U/L (45-117); Anion Gap 9.7 mEq/L (5.0-15.0); BUN Blood Urea Nitrogen 4 mg/dL (7-18); Bicarbonate 26 mEq/L (21-32); Bilirubin Total 0.6 mg/dL (0.2-1.0); Globulin 3.4 g/dL (2.3-3.5); Glomerular Filtration Rate 74 ml/min (=/>90); Glucose Level 160 mg/dL (74-106); Lipase 95 U/L (13-75); Magnesium 1.7 mg/dL (1.6-2.4); NT PRO-BNP 121 pg/mL (<450); Potassium 2.7 mEq/L (3.5-5.1); Protein, Total 6.7 g/dL (6.4-8.2); Sodium Level 139 mEq/L (136-145); Troponin High Sensitivity 6.7 pg/mL (<58.9)
[2024-06-09 00:12] LABS: ALT/SGPT < 14 U/L (13-56); AST/SGOT < 10 U/L (15-37); Bilirubin Direct < 0.2 mg/dL (0-0.2); Bilirubin Indirect, Calculated 0.4 mg/dL (0.2-0.8)
[2024-06-09] MEDS ORDERED: NA CHLORIDE 0.9% 500 ML ONE (00:44)
[2024-06-09] MEDS ORDERED: KCL 20 MEQ/100 mL IVPB 100 ML IV ONE (00:45)
[2024-06-09 02:37] LABS: Renal Epithelial <5 /HPF (None Seen); Specific Gravity 1.027 (1.005-1.030); Sqamous Epithelial <5 /HPF (None Seen); Urine Bacteria None Seen /HPF (<20); Urine Bilirubin NEGATIVE (Negative); Urine Blood Trace (Negative); Urine Clarity Clear (Clear); Urine Color Colorless (Yellow); Urine Culture Reflex Order NOT NEEDED; Urine Glucose NEGATIVE (Negative); Urine Ketones NEGATIVE (Negative); Urine Microscopic Reflex YN ORDER UMIC; Urine Nitrite NEGATIVE (Negative); Urine Protein NEGATIVE (Negative); Urine RBC <5 /HPF (None Seen); Urine Urobilinogen Normal (Normal); Urine WBC <5 /HPF (<5)
--- NOTE | 2024-06-09 02:46 | EDPHYS ---
Physician Documentation [facility] Name: Milan Weir Age: 84 yrs Sex: Female : 1940 Arrival Date: 06/08/2024 Time: 23:15 Bed 14 Private MD: ED Physician Yogesh Méndez HPI: 06/08 23:20 This 84 yrs old Female presents to ER via Unassigned with complaints of Nausea/Vomiting.cp 23:20 The patient presents to the emergency department with nausea, with "dry heaves", cp vomiting, that is continuous, abdominal pain. Onset: The symptoms/episode began/occurred today. Associated signs and symptoms: Pertinent negatives: constipation, diarrhea, fever, GI bleeding. Severity of symptoms: in the emergency department the symptoms have improved mildly. Historical: - Allergies: 06/09 01:52 Codeine; rg5 01:52 tramadol; rg5 01:52 Tylenol-Codeine; rg5 - PMHx: 01:52 Alzheimers; COPD; Pancreatitis; Hernia; rg5 - PSHx: 01:52 Adenoid excision; Appendectomy; Cholecystectomy; breast implants; double masectomy; rg5 stomach surgery to prevent vomiting; Tonsillectomy; Total abdominal hysterectomy; - Immunization history:: Adult Immunizations up to date. - Infectious Disease History:: Denies. - Social history:: Smoking status: unknown. ROS: 06/08 23:25 Constitutional: Positive for poor PO intake, Negative for body aches, chills, fever, cp 06/09 02:46 Constitutional: as per hpi ec2 Exam: 06/08 23:57 ECG was reviewed by the Attending Physician. cp Vital Signs: 23:20 BP 154 / 91; Pulse 74; Resp 19; Temp 98.3(O); Pulse Ox 100% on R/A; Pain 0/10; rg5 06/09 00:30 BP 128 / 70; Pulse 73; Resp 17; Pulse Ox 95% on R/A; Pain 0/10; rg5 01:32 BP 136 / 65; Pulse 77; Resp 17; Temp 98(O); Pulse Ox 96% ; Weight 56.25 kg; Height 5 rg5 ft. 4 in. ; Pain 0/10; 02:30 BP 123 / 73; Pulse 75; Resp 17; Pulse Ox 99% on R/A; Pain 0/10; rg5 01:32 Body Mass Index 21.28 (56.25 kg, 162.56 cm) rg5 06/08 23:20 Pain Scale: Adult rg5 06/09 00:30 Pain Scale: Adult rg5 01:32 Pain Scale: Adult rg5 02:30 Pain Scale: Adult rg5 Jeannie Coma Score: 06/08 23:20 Eye Response: spontaneous(4). Motor Response: obeys commands(6). Verbal Response: rg5 oriented(5). Total: 15. MDM: 23:17 Patient medically screened. cp 06/09 01:04 Data reviewed: vital signs. ED course: Patient signed out to me or SABIHA, in brief ec2 arrives today for evaluation of abdominal pain with associated nausea and vomiting.. Needs to follow-up CT imaging. . 01:05 ED course: Metabolic panel remarkable for slight hypokalemia with potassium of 2.7. CBC ec2 is reassuring. LFTs are nonactionable, lipase is minimally elevated. Troponin within normal ranges. . 02:40 ED course: CT imaging shows no acute intra-abdominal process, shows possible cystitis. ec2 Urine is noninfectious appearing. Will discharge home. Return precautions given. . 02:45 ED course: On reassessment patient with improvement in her nausea. Will discharge home. ec2 Return precautions given.. 06/08 23:18 Order name: Basic Metabolic Panel; Complete Time: 00:39 cp 06/09 00:39 Interpretation: Normal except: K 2.7; GLUC 160; BUN 4; GFR 74. cp 06/08 23:18 Order name: CBC with Diff; Complete Time: 00:39 cp 06/08 23:18 Order name: LFT's; Complete Time: 00:39 cp 06/08 23:18 Order name: Magnesium; Complete Time: 00:39 cp 06/08 23:18 Order name: NT PRO-BNP; Complete Time: 00:39 cp 06/08 23:18 Order name: PT-INR; Complete Time: 00:39 cp 06/08 23:18 Order name: Troponin HS; Complete Time: 00:39 cp 06/08 23:18 Order name: Lipase; Complete Time: 00:39 cp 06/08 23:18 Order name: Urinalysis w/ reflexes; Complete Time: 02:40 cp 06/08 23:18 Order name: XRAY Chest (1 view) cp 06/09 00:51 Order name: CT Abd/Pelvis - IV Contrast Only cp 06/08 23:18 Order name: EKG; Complete Time: 23:19 cp 06/08 23:18 Order name: Cardiac monitoring; Complete Time: 23:25 cp 06/08 23:18 Order name: EKG - Nurse/Tech; Complete Time: 23:48 cp 06/08 23:18 Order name: IV Saline Lock; Complete Time: 23:25 cp 06/08 23:18 Order name: Labs collected and sent; Complete Time: 23:42 cp 06/08 23:18 Order name: O2 Per Protocol; Complete Time: 23:43 cp 06/08 23:18 Order name: O2 Sat Monitoring; Complete Time: 23:43 cp EC/06 23:57 Rate is 65 beats/min. Rhythm is regular. IN interval is normal. QRS interval is normal. cp QT interval is normal. T waves are Inverted in lead aVR. Interpreted by me. Reviewed by me. Administered Medications: 23:30 Drug: metoCLOPramide IVP 10 mg IVP once; over 1 to 2 minutes Route: IVP; Site: right 5 antecubital; 06/09 01:31 Follow up: Response: No adverse reaction 5 06/08 23:35 Drug: Famotidine IVP 20 mg IVP once; dilute with 10 mL 0.9% NaCl; give over 2 minutes rg5 Route: IVP; Site: right antecubital; 06/09 01:31 Follow up: Response: No adverse reaction 5 06/08 23:42 Drug: diphenhydrAMINE IVP 12.5 mg IVP once Route: IVP; Site: right antecubital; rg5 06/09 01:31 Follow up: Response: No adverse reaction rg5 00:45 Drug: Potassium Chloride IV 20 mEq IV at calculated rate once; administer over 1-2 rg5 hours Route: IV; Rate: calculated rate; Site: right antecubital; 03:00 Follow up: IV Status: Completed infusion; IV Intake: 100ml rg5 Disposition: 02:45 I agree with the assessment and plan of care. I reviewed the patient's care provided by [facility] Advanced Practice Provider \\T\\ agree w/ the diagnosis \\T\\ care plan. I personally saw the pt \\T\\ performed a substantive portion of the visit, incldng all aspects of the (History/Exam/Medical Decision Making). Disposition Summary: 06/09/24 02:45 Discharge Ordered Notes: Location: Home ec2 Condition: Stable ec2 Diagnosis - Abdominal pain, Generalized ec2 - Nausea with vomiting, unspecified ec2 Followup: ec2 - With: Private Physician - When: - Reason: Re-evaluation by your physician Discharge Instructions: - Discharge Summary Sheet ec2 - Abdominal Pain, Adult ec2 Forms: - Medication Reconciliation Form ec2 - Antibiotic Education ec2 - Prescription Opioid Use ec2 - Patient Portal Instructions ec2 - Leadership Thank You Letter ec2 Signatures: Dispatcher [employer] EDMS Sean Earl PA PA Yogesh Zapata MD MD ec2 Jaylon Knight RN RN rg5 Corrections: (The following items were deleted from the chart) 00:51 00:51 Abdomen Pelvis W Con+CT.RAD.BRZ ordered. EDMS EDMS
--- NOTE | 2024-06-09 02:46 | ER ---
Nurse's Notes [facility] Name: Milan Weir Age: 84 yrs Sex: Female : 1940 Arrival Date: 06/08/2024 Time: 23:15 Bed 14 Private MD: Diagnosis: Abdominal pain, Generalized;Nausea with vomiting, unspecified Presentation: 06/08 23:20 Chief complaint: EMS states: she is nauseated \T\ started vomiting 30 [employer]. Hx of chronic rg5 N\T\V, once she started vomiting said it wont get away easily. Coronavirus screen: Vaccine status: Patient reports receiving the 1st dose of the Covid vaccine. Client denies travel out of the [place] in the last 14 days. Ebola Screen: Patient negative for fever greater than or equal to 101.5 degrees Fahrenheit, and additional compatible Ebola Virus Disease symptoms. Initial Sepsis Screen: Does the patient meet any 2 criteria? No. Patient's initial sepsis screen is negative. Does the patient have a suspected source of infection? No. Patient's initial sepsis screen is negative. Risk Assessment: Do you want to hurt yourself or someone else? Patient reports no desire to harm self or others. Onset of symptoms was June 08, 2024 at 22:00. Care prior to arrival: Medication(s) given: zofran 4 mg, IV initiated. 20 GA, in the right antecubital area. 23:20 Method Of Arrival: EMS: [facility] rg5 23:20 Acuity: JARRETT 3 rg5 Triage Assessment: 23:20 General: Appears in no apparent distress. Behavior is calm, cooperative, appropriate rg5 for age. Pain: Denies pain. EENT: No deficits noted. Neuro: Level of Consciousness is awake, alert, obeys commands, Oriented to person, place, time. Cardiovascular: Heart tones S1 S2 Patient's skin is warm and dry. Rhythm is sinus rhythm. Respiratory: Airway is patent Trachea midline Respiratory effort is even, Respiratory pattern is regular, symmetrical. GI: Reports nausea, vomiting. GI: Abdomen is round non-distended, Bowel sounds present X 4 quads. Abd is soft and non tender. : Reports incontinence. Derm: Skin is intact, Skin is dry, Skin is normal. Musculoskeletal: Circulation, motion, and sensation intact. Range of motion: intact in all extremities. Historical: - Allergies: 06/09 01:52 Codeine; rg5 01:52 tramadol; rg5 01:52 Tylenol-Codeine; rg5 - PMHx: 01:52 Alzheimers; COPD; Pancreatitis; Hernia; rg5 - PSHx: 01:52 Adenoid excision; Appendectomy; Cholecystectomy; breast implants; double masectomy; rg5 stomach surgery to prevent vomiting; Tonsillectomy; Total abdominal hysterectomy; - Immunization history:: Adult Immunizations up to date. - Infectious Disease History:: Denies. - Social history:: Smoking status: unknown. Screenin/06 23:20 [facility] ED Fall Risk Assessment (Adult) History of falling in the last 3 months, rg5 including since admission No falls in past 3 months (0 pts) Confusion or Disorientation No (0 pts) Intoxicated or Sedated No (0 pts) Impaired Gait No (0 pts) Mobility Assist Device Used No (0 pt) Altered Elimination Yes (1 pt) Score/Fall Risk Level 0 - 2 = Low Risk Oriented to surroundings, Maintained a safe environment, Hourly rounding (assess needs \T\ fall precautionary measures) done. Abuse screen: Denies threats or abuse. Nutritional screening: No deficits noted. Tuberculosis screening: No symptoms or risk factors identified. Assessment: 23:20 Reassessment: see triage assessment. rg5 23:20 GI: Abdomen is round Bowel sounds present X 4 quads. Abd is soft and non tender Reports rg5 nausea, vomiting. 06/09 00:35 Reassessment: Patient and/or family updated on plan of care and expected duration. Pain rg5 level reassessed. Patient is alert, oriented x 3, equal unlabored respirations, skin warm/dry/pink. Patient states symptoms have improved. 01:48 Reassessment: Patient and/or family updated on plan of care and expected duration. Pain rg5 level reassessed. Patient is alert, oriented x 3, equal unlabored respirations, skin warm/dry/pink. Patient states feeling better. Patient states symptoms have improved. 02:50 Reassessment: Patient and/or family updated on plan of care and expected duration. Pain rg5 level reassessed. Patient is alert, oriented x 3, equal unlabored respirations, skin warm/dry/pink. Patient states feeling better. Patient states symptoms have improved. Vital Signs: 06/08 23:20 BP 154 / 91; Pulse 74; Resp 19; Temp 98.3(O); Pulse Ox 100% on R/A; Pain 0/10; rg5 06/09 00:30 BP 128 / 70; Pulse 73; Resp 17; Pulse Ox 95% on R/A; Pain 0/10; rg5 01:32 BP 136 / 65; Pulse 77; Resp 17; Temp 98(O); Pulse Ox 96% ; Weight 56.25 kg; Height 5 rg5 ft. 4 in. ; Pain 0/10; 02:30 BP 123 / 73; Pulse 75; Resp 17; Pulse Ox 99% on R/A; Pain 0/10; rg5 01:32 Body Mass Index 21.28 (56.25 kg, 162.56 cm) rg5 06/08 23:20 Pain Scale: Adult rg5 06/09 00:30 Pain Scale: Adult rg5 01:32 Pain Scale: Adult rg5 02:30 Pain Scale: Adult rg5 Jeannie Coma Score: 06/08 23:20 Eye Response: spontaneous(4). Motor Response: obeys commands(6). Verbal Response: rg5 oriented(5). Total: 15. ED Course: 23:16 Patient arrived in ED. [id number] 23:16 Jaylon Knight, SANDY is Primary Nurse. rg5 23:17 Sean Earl PA is PHCP. cp 23:17 Yogesh Méndez MD is Attending Physician. cp 23:20 Arm band placed on right wrist. EKG completed in triage. Results shown to MD. rg5 23:20 Patient has correct armband on for positive identification. Bed in low position. Call rg5 light in reach. Side rails up X 1. 23:20 No provider procedures requiring assistance completed. Maintain EMS IV. Dressing rg5 intact. Good blood return noted. Site clean \T\ dry. Gauge \T\ site: 20 g right AC. Flushed with 10 mL NS IV is patent, is intact, Flushed right antecubital with 5 ml normal saline. 23:51 XRAY Chest (1 view) In Process Unspecified. EDMS 06/09 01:44 Triage completed. rg5 02:04 CT Abd/Pelvis - IV Contrast Only In Process Unspecified. EDMS 03:06 bleeding controlled, No redness/swelling at site. Pressure dressing applied. rg5 03:07 Provided Education on: POST ER CARE. rg5 Administered Medications: 06/08 23:30 Drug: metoCLOPramide IVP 10 mg IVP once; over 1 to 2 minutes Route: IVP; Site: right rg5 antecubital; 06/09 01:31 Follow up: Response: No adverse reaction rg5 06/08 23:35 Drug: Famotidine IVP 20 mg IVP once; dilute with 10 mL 0.9% NaCl; give over 2 minutes rg5 Route: IVP; Site: right antecubital; 06/09 01:31 Follow up: Response: No adverse reaction rg5 06/08 23:42 Drug: diphenhydrAMINE IVP 12.5 mg IVP once Route: IVP; Site: right antecubital; rg5 06/09 01:31 Follow up: Response: No adverse reaction rg5 00:45 Drug: Potassium Chloride IV 20 mEq IV at calculated rate once; administer over 1-2 rg5 hours Route: IV; Rate: calculated rate; Site: right antecubital; 03:00 Follow up: IV Status: Completed infusion; IV Intake: 100ml rg5 Medication: 06/08 23:20 VIS not applicable for this client. rg5 Intake: 06/09 03:00 IV: 100ml; Total: 100ml. rg5 Outcome: 02:45 Discharge ordered by . ec2 03:06 Discharged to home ambulatory, rg5 03:06 Condition: stable 03:06 Discharge instructions given to patient, 03:12 Patient left the ED. rg5 Signatures: Dispatcher [employer] EDSean Hodge PA PA cp Jeffries, Jennifer [id number] Yogesh Méndez MD MD ec2 Jaylon Knigth, RN RN rg5
--- NOTE | 2024-06-09 03:00 | RAD REPORT ---
EXAM: CT Abdomen and Pelvis With Intravenous Contrast CLINICAL HISTORY: Nausea / vomiting, abd pain. TECHNIQUE: Axial computed tomography images of the abdomen and pelvis with intravenous contrast. Sagittal and coronal reformatted images were created and reviewed. This CT exam was performed using one or more of the following dose reduction techniques: automated exposure control, adjustment of the mA a nd/or kV according to patient size, and/or use of iterative reconstruction technique. COMPARISON: CT Abdomen pelvis with contrast 02/15/2024. FINDINGS: Lung bases: Peripheral multifocal tree-in-bud opacities within the right lower, right middle lobe a nd lingula, similar to the prior. Heart: Coronary artery calcification. ABDOMEN: Liver: Unremarkable. No mass. Gallbladder and bile ducts: There has been a cholecystectomy. No ductal dilation. Pancreas: Unremarkable. No mass. No ductal dilation. Spleen: Unremarkable. No splenomegaly. Adrenals: Unremarkable. No mass. Kidneys and ureters: Unremarkable. No solid mass. No hydronephrosis. Stomach and bowel: Colonic diverticula without adjacent inflammatory change. No obstruction. No mucosal thickening. PELVIS: Appendix: The appendix is not definitively visualized. No findings to suggest acute appendicitis. Bladder: Mild circumferential urinary bladder wall thickening. Reproductive: There has been a hysterectomy. No adnexal cysts or masses are identified. ABDOMEN and PELVIS: Intraperitoneal space: Unremarkable. No free air. No significant fluid collection. Bones/joints: Multilevel spondylosis. No acute fracture. No dislocation. Soft tissues: Partially visualized left breast implants. Tiny fat-containing umbilical hernia. Vasculature: Moderate atherosclerotic disease. No abdominal aortic aneurysm. Lymph nodes: Unremarkable. No enlarged lymph nodes. IMPRESSION: 1. Mild circumferential urinary bladder wall thickening. Please correlate clinically for cystitis. 2. Multifocal endobronchial infiltrates bilaterally, similar to the prior. 3. Other findings as above. Electronically signed by: Oumar Sanchez MD 06/09/2024 02:32 AM CDT Due to temporary technical issues with the PACS/[employer] reporting system, reports are being madison d by the in-house radiologist without review as a courtesy to ensure prompt reporting the interpreting radiologist is fully responsible for the content of the report. Transcribed Date/Time: 06/09/2024 2:59 AM
[2024-06-09 03:28] VITALS: TEMP 98
[2024-06-09 03:30] VITALS: BP 123/73; O2SAT 99
--- NOTE | 2024-06-09 05:47 | RAD REPORT ---
EXAM DESCRIPTION: Chest Single View CLINICAL HISTORY: 4 years Female, vomiting Comparison: Chest radiograph dated 11/01/2023 IMPRESSION: Left chest port with IJ approach terminating in the mid SVC. Chronic lung changes. No focal consolidation. No pleural effusion. No pneumothorax. Cardiomediastinal silhouette is within normal limits. No acute osseous abnormality. Electronically signed by: Thompson Long DO 06/09/2024 12:07 AM CDT RP 9 Due to temporary technical issues with the PACS/[employer] reporting system, reports are being madison d by the in-house radiologist without review as a courtesy to ensure prompt reporting the interpreting radiologist is fully responsible for the content of the report. Transcribed Date/Time: 06/09/2024 5:48 AM
--- NOTE | 2024-06-09 11:52 | EKG ---
Test Date: 2024-06-08 Test Time: 23:54:57 Instrument Technician Apprentice: AF MEASUREMENT RESULTS: Intervals: Rate: 65 KY: 154 QRSD: 68 QT: 436 QTc: 453 Horner: P: 44 KY: 154 QRS: 63 T: 77 INTERPRETIVE STATEMENTS: Normal sinus rhythm Normal ECG Compared to ECG 02/15/2024 19:33:59 Sinus bradycardia no longer present Electronically Signed On 06-09-24 11:50:49 CDT by Regis Guevara
== END 2024-06-09 03:12 | disposition home or self-care (01) ==
LOC: ER 23:15
DX: R10.84 Generalized abdominal pain (principal); R11.2 Nausea with vomiting, unspecified; J44.9 Chronic obstructive pulmonary disease, unspecified; G30.9 Alzheimer's disease, unspecified; F02.80 Dementia in other diseases classified elsewhere, unspecified severity, without behavioral disturbance, psychotic disturbance, mood disturbance, and anxiety; Z98.82 Breast implant status
CPT/HCPCS: 96365; 93005; 85025; 81001; 80048; 36415; 83735; 85610; 80076; 84484; 83690; 83880; 74177; 71045; 96375; 99284; 96366; Q9967; J3480; J2765; J1200; J7040

== ENCOUNTER 2024-06-18 12:56 | Emergency (ER) | payer OTHER, BC ==
--- OUTSIDE RECORDS SUMMARY | 2024-06-18 12:59 | XMS REPORT | Continuity of Care Document ---
Author Name Unknown Address [address] [facility] [address] [facility] [place] [address] [facility] thconnect Address [address] [facility] [facility] [place] [address] Care Team Providers Care Nurse Specialist Name Role Phone PCP, PATIENT DOES NOT HAVE A Primary Care Physic padmini Unavailable Seamus Castro MD Attending Clinician [phone] [email or web address] Attending Clinician UnavailNIECY Barber Attending Clinician Unavailab Niecy Collazo DO Attending Clinician [phone] RADIOLOGY Attending Clinician Unavailable Radiology Attending Clinician Unavailable MIKHAIL HURTADO Attending Clinician Unavailab sil [email or web address]_S Admitting Clinician UnavailNIECY Barber Admitting Clinician Unavailab MEKA Ricks Admitting Clinician Unavailable MIKHAIL HURTADO Admitting Clinician Unavailab le Payers Payer Name Policy Type Policy Number Effective Date Expirati on Date Source MEDICARE PART A \T\ B [id number] 2004 00:00:00 [employer] TRADITIONAL [id number] 2017 00:00:00 Problems Condition Name Condition Details [...] 2023-11-25 02:02:51 Identifies as female gender (finding) [facility] History of tobacco use Current smoker [facility] Sexual orientation [facility] History of Social function 2023-12-11 00:00:00 2023-12-11 00:00:00 [facility] Exposure to SARS-CoV-2 (event) 2022-09-08 00:00:00 2022-09-18 09:01:00 Not sure [facility] Sex Assigned At 1940 00:00:00 1940 00:00:00 [facility] Smoking Status Start Date Stop Date Source Ex-smoker [facility] Tobacco smoking consumption unknown [facility] Medications Ordered Medication Name Filled Medication Name Start Date Stop Date Current Medication? Ordering Clinician Indication Dosage Frequency Signature (SIG) Comments Components Source mirtazapine (Remeron) 15 MG tablet mirtazapine (Remeron) 15 MG tablet 04-18 00:00: 00 Yes 15mg TAKE ONE (1) TABLET(S) BY MOUTH DAILY AT BEDTIME. Layton Garcia [facility] donepezil (Aricept) 5 MG tablet donepezil (Aricept) 5 MG tablet 2022-09 00:00: 00 Yes See Instructio ns, TAKE ONE (1) TABLET(S) BY MOUTH DAILY., # 30 ea, 3 Refill(s), Pharmacy: [id number], 162.56, cm, 06/14/23 9:48:00 CDT, Height, 61.023, kg, 06/14/23 9:48:00 CDT, Weight Layton Garcia [facility] memantine (Namenda) 5 MG tablet [...] CAPSULE(S) BY MOUTH DAILY NEEDED. Darlinval jamar Joseveronica Villaseñor No known medications 09-18 09:05: 08 No No known medication s [facility] gadoteridol (PROHANCE-1 5 mL) injection 0.2 mL/kg 2019-09 21:45: 00 08-12 22:15 :00 No .2mL/kg 0.2 mL/kg, Intravenou s, ONCE, 1 dose, Leni 08/12/20 at 1545, Routine [facility] Vital Signs Vital Name Observation Time Observation Value Comments S ource Heart rate 2022-09-18 16:44:00 62 /min [facility] Respiratory rate 2022-09-18 16:44:00 20 /min [facility] Oxygen saturation in Arterial blood by Pulse oximetry 2022-09-18 16:44:00 99 /min [facility] Systolic blood pressure 2022-09-18 16:00:18 153 mm[Hg] [facility] Diastolic blood pressure 2022-09-18 16:00:18 86 mm[Hg] [facility] Body temperature 2022-09-18 15:03:00 36.89 Keesha [facility] Body height 2022-09-18 15:03:00 160 cm [facility] Body weight 2022-09-18 15:03:00 53.524 kg [facility] BMI 2022-09-18 15:03:00 20.90 kg/m2 [facility] Procedures Procedure Date / Time Performed Performing Clinicia n Source CT TRAUMA HEAD WO CONTRAST 2022-09-18 15:55:32 Niecy Ball [facility] CT TRAUMA CERVICAL SPINE WO CONTRAST 2022-09-18 15:55:32 Niecy Ball [facility] XR SHOULDER <2 VW LEFT 2022-09-18 15:40:40 Ashley Ball [facility] NOTICE OF PRIVACY PRACTICES 2022-09-18 14:59:10 Doctor Unassigned, [place] [facility] CONSENT/REFUSAL FOR DIAGNOSIS AND TREATMENT 2022-09-18 14:58:45 Doctor Unassigned, [place] [facility] MR ABDOMEN W WO CONTRAST MRCP 2020-08-12 22:16:07 Requisition, Paper [facility] NOTICE OF PRIVACY PRACTICES 2020-08-12 21:10:37 Doctor Unassigned, [place] [facility] CONSENT/REFUSAL FOR DIAGNOSIS AND TREATMENT 2020-08-12 21:10:07 Doctor Unassigned, [place] [facility] ASSIGNMENT OF BENEFITS 2020-08-12 21:09:46 Docto r Unassigned, [place] [facility] Encounters Start Date/Time End Date/Time Encounter Type Admission Type Attending [facility] Facility Care Department Encounter ID Source 2024-04-17 00:00:00 2024-04-18 10:18:36 Seamus Patel [id number] Layton Garcia [facility] 2023-07-03 00:00:00 2023-07-03 00:00:00 Outpatient [email or web address] PRIV PRIV [id number] [facility] 2023-07-02 00:00:00 2023-07-02 00:00:00 Outpatient [email or web address] [email or web address] PRIV PRIV [id number] [facility] 2022-09-18 09:05:00 2022-09-18 10:46:00 Emergency X NIECY BALL [facility] ERT [id number] [facility] 2022-09-18 09:05:00 2022-09-18 10:46:00 Emergency Niecy Ball [facility] [id number] [facility] 2020-08-12 15:11:31 2020-08-12 23:59:00 Outpatient R RADIOLOGY [facility] [id number] [facility] 2020-08-12 15:00:00 2020-08-12 23:59:00 Hospital Encounter Radiology [facility] [id number] [facility] 2020-08-12 15:00:00 2020-08-12 23:59:00 Hospital Encounter Radiology [facility] [id number] Results Test Description Test Time Test Comments [...] [facility] [id number] 09:33:00* Test Item Value Reference Range Interpretation [...] assessment and management of chronic kidney failure. [facility] Notes Date/Time Note Provider Source [id number]18[facility]46[id number]:18[facility]31 Medication filled, please call patient and have them schedule a follow up. Adeel Jose
[2024-06-18] MEDS ORDERED: DERMABOND SKIN ADHESIVE TOP ONE (14:07)
[2024-06-18] MEDS ORDERED: TDAP (DIPHTH,PERTUSS(ACELL),TET VAC) 0.5 ML VIAL IMVAC ONE (14:07)
--- NOTE | 2024-06-18 14:31 | RAD REPORT ---
EXAM: CT brain without contrast HISTORY: Pain;Trauma COMPARISON: 07/21/2022 TECHNIQUE: Multiple contiguous axial images were obtained and a CT of the brain without contrast. Sag ittal and coronal reformats were performed. One or more of the following dose reduction techniques were used: Automated exposure control, adjust ment of the mA and/or kV according to patient size, and/or iterative reconstruction. FINDINGS: No evidence of hydrocephalus, intracranial hemorrhage, or extra-axial fluid collection. Mild brain atrophy with mild periventricular and deep white matter chronic microvascular ischemic ch anges present. No evidence of midline shift or areas of brain edema. The calvarium is intact. The visualized paranasal sinuses and mastoid air cells are essentially clear . IMPRESSION: No evidence of acute intracranial abnormality. EXAM: CT of the cervical spine without contrast HISTORY: Neck pain, injury Pain;Trauma COMPARISON: 10/07/2019 TECHNIQUE: Multiple contiguous axial images were obtained in a CT of the cervical spine without contr ast. Sagittal and coronal reformats were performed. FINDINGS: The vertebral bodies demonstrate normal height and alignment. No evidence of acute fracture or subluxation.. Mild multilevel degenerative changes mid and lower cervical spine. No prevertebral soft tissue swelling is seen. The posterior facets are well aligned. Normal alignment of the skull base with the cervical spine is seen. The lung apices are unremarkable. IMPRESSION: No evidence of acute osseous abnormality of the cervical spine. Mild mid and lower cervical spondylosis.
--- NOTE | 2024-06-18 15:34 | EDPHYS ---
Physician Documentation [facility] Name: Milan Weir Age: 84 yrs Sex: Female : 1940 Arrival Date: 06/18/2024 Time: 12:56 Bed 26 Private MD: ED Physician Sean Seymour HPI: 06/18 15:25 This 84 yrs old Female presents to ER via EMS with complaints of Fall Injury. nargis 15:25 Details of fall: The patient fell from an upright position, while standing, while nargis walking. Onset: The symptoms/episode began/occurred just prior to arrival. Associated injuries: The patient sustained injury to the head, laceration, pain, left hand, contusion, painful injury. Severity of symptoms: At their worst the symptoms were mild, moderate, in the emergency department the symptoms are unchanged. The patient has not experienced similar symptoms in the past. Historical: - Allergies: 13:50 Codeine; tl4 13:50 tramadol; tl4 13:50 Tylenol-Codeine; tl4 - PMHx: 13:50 Alzheimers; COPD; Hernia; Pancreatitis; tl4 - PSHx: 13:50 Adenoid excision; Appendectomy; breast implants; Cholecystectomy; double masectomy; tl4 stomach surgery to prevent vomiting; Tonsillectomy; Total abdominal hysterectomy; - Immunization history:: Adult Immunizations unknown. - Infectious Disease History:: Denies. - Social history:: Smoking status: Patient/guardian denies using tobacco, the patient reports quitting approximately 40 years ago. ROS: 15:27 Constitutional: Negative for fever, chills, and weight loss, Eyes: Negative for injury, nargis pain, redness, and discharge, ENT: Negative for injury, pain, and discharge, Neck: Negative for injury, pain, and swelling, Cardiovascular: Negative for chest pain, palpitations, and edema, Respiratory: Negative for shortness of breath, cough, wheezing, and pleuritic chest pain, Abdomen/GI: Negative for abdominal pain, nausea, vomiting, diarrhea, and constipation, Back: Negative for injury and pain, : Negative for injury, bleeding, discharge, and swelling, Psych: Negative for depression, anxiety, suicide ideation, homicidal ideation, and hallucinations, Allergy/Immunology: Negative for hives, rash, and allergies, Endocrine: Negative for neck swelling, polydipsia, polyuria, polyphagia, and marked weight changes, Hematologic/Lymphatic: Negative for swollen nodes, abnormal bleeding, and unusual bruising, 15:27 MS/extremity: Positive for contusion, of the left hand, 15:27 Skin: Positive for laceration(s), of the face and chin, Exam: 15:28 Constitutional: This is a well developed, well nourished patient who is awake, alert, nargis and in no acute distress. Eyes: Pupils equal round and reactive to light, extra-ocular motions intact. Lids and lashes normal. Conjunctiva and sclera are non-icteric and not injected. Cornea within normal limits. Periorbital areas with no swelling, redness, or edema. ENT: Nares patent. No nasal discharge, no septal abnormalities noted. Tympanic membranes are normal and external auditory canals are clear. Oropharynx with no redness, swelling, or masses, exudates, or evidence of obstruction, uvula midline. Mucous membranes moist. Neck: Trachea midline, no thyromegaly or masses palpated, and no cervical lymphadenopathy. Supple, full range of motion without nuchal rigidity, or vertebral point tenderness. No Meningismus. Chest/axilla: Normal chest wall appearance and motion. Nontender with no deformity. No lesions are appreciated. Cardiovascular: Regular rate and rhythm with a normal S1 and S2. No gallops, murmurs, or rubs. Normal PMI, no JVD. No pulse deficits. Respiratory: Lungs have equal breath sounds bilaterally, clear to auscultation and percussion. No rales, rhonchi or wheezes noted. No increased work of breathing, no retractions or nasal flaring. Abdomen/GI: Soft, non-tender, with normal bowel sounds. No distension or tympany. No guarding or rebound. No evidence of tenderness throughout. Back: No spinal tenderness. No costovertebral tenderness. Full range of motion. Female : Normal external genitalia. Neuro: Awake and alert, GCS 15, oriented to person, place, time, and situation. Cranial nerves II-XII grossly intact. Motor strength 5/5 in all extremities. Sensory grossly intact. Cerebellar exam normal. Normal gait. Psych: Awake, alert, with orientation to person, place and time. Behavior, mood, and affect are within normal limits. 15:28 Head/face: Noted is contusion, hematoma, a laceration(s), that is superficial, 1 cm(s), swelling, Vital Signs: 13:35 BP 148 / 90; Pulse 65; Resp 20; Temp 98.4(O); Pulse Ox 98% on R/A; Weight 52.62 kg; tl4 Height 5 ft. 4 in. ; Pain 8/10; 14:49 BP 159 / 80; Pulse 63; Resp 16; Pulse Ox 96% on R/A; tl4 15:45 BP 145 / 75; Pulse 82; Resp 16; Temp 97.8(O); Pulse Ox 97% on R/A; tl4 13:35 Body Mass Index 19.91 (52.62 kg, 162.56 cm) tl4 13:35 Pain Scale: Adult tl4 Jeannie Coma Score: 15:30 Eye Response: spontaneous(4). Motor Response: obeys commands(6). Verbal Response: nargis oriented(5). Total: 15. Laceration: 15:28 Wound Repair of 1cm ( 0.4in ) subcutaneous laceration to chin. Irregularly shaped.. nargis Distal neuro/vascular/tendon intact. Anesthesia: NONE with 0 mls of NONE. Wound prep: Moderate cleansing with betadine by me. Skin closed with DERMABOND Adhesive skin closure using Dermabond. Dressed with non-adherent dressing. Patient tolerated well. MDM: 13:39 Medical Screening Exam initiated nargis 15:30 Differential diagnosis: Contusion of Hematoma on Laceration of Intracranial bleed- nargis Concussion cerebral contusion, contusion, abrasion, tendonitis. Differential Diagnosis altered mental status, sepsis, flu. Differential diagnosis: abrasion, closed head injury, contusion, fracture, laceration, multiple trauma, sprain, strain. Data reviewed: vital signs, nurses notes, radiologic studies, CT scan. Consideration of Admission/Observation Escalation of care including admission/observation considered. I considered the following discharge prescriptions or medication management in the emergency department Medications were administered in the Emergency Department. See MAR. Independent interpretation of the following test(s) in the Emergency Department CT Scan: My interpretation is CT HEAD AND C SPINE. Test considered but Not performed: Labs: NO CBC, NO COMP. 06/18 13:59 Order name: CT Head C Spine; Complete Time: 14:42 [facility] 06/18 13:59 Order name: Dermabond; Complete Time: 14:17 nargis Administered Medications: 14:48 Drug: Boostrix Tdap IM 0.5 ml IM once; as a single dose {Note: [employer] Lot tl4 #[id number] Expiration date: 05/08/2025 VIS 04/08/2021.} Route: IM; Site: right deltoid; 15:15 Follow up: Response: No adverse reaction tl4 Disposition Summary: 06/18/24 15:34 Discharge Ordered Notes: Location: Home nargis Problem: new nargis Symptoms: have improved nargis Condition: Stable nargis Diagnosis - Laceration without foreign body of other part of head - CHIN nargis - Contusion of left hand nargis - Fall on same level, unspecified nargis Followup: nargis - With: Private Physician - When: 2 - 3 days - Reason: Wound Recheck, Recheck today's complaints, Re-evaluation by your physician Discharge Instructions: - Discharge Summary Sheet nargis - Tissue Adhesive Wound Care nargis - Fall Prevention in the Home, Adult nargis - Laceration Care, Adult nargis - Laceration Care, Adult, [id number] nargis - Fall Prevention in the Home, Adult, [id number] nargis - Tissue Adhesive Wound Care, [id number] nargis Forms: - Medication Reconciliation Form nargis - Antibiotic Education nargis - Prescription Opioid Use nargis - Patient Portal Instructions [facility] - Leadership Thank You Letter [facility] Signatures: Dispatcher [employer] Sean Marks MD MD cha Logdahl, Toni, RN RN tl4
--- NOTE | 2024-06-18 15:34 | ER ---
Nurse's Notes [facility] Name: Milan Weir Age: 84 yrs Sex: Female : 1940 Arrival Date: 06/18/2024 Time: 12:56 Bed 26 Private MD: Diagnosis: Laceration without foreign body of other part of head-CHIN;Contusion of left hand;Fall on same level, unspecified Presentation: 06/18 13:35 Chief complaint: Patient states: Pt states she fell climbing over a barrier and fell tl4 face first, striking her forehead and chin on concrete. Pt denies LOC. Pt c/o pain in forehead and chin, abrasions noted, bleeding controlled. Pt has history of frequent falls. Coronavirus screen: At this time, the client does not indicate any symptoms associated with coronavirus-19. Ebola Screen: No symptoms or risks identified at this time. Initial Sepsis Screen: Does the patient meet any 2 criteria? No. Patient's initial sepsis screen is negative. Does the patient have a suspected source of infection? No. Patient's initial sepsis screen is negative. Risk Assessment: Do you want to hurt yourself or someone else? Patient reports no desire to harm self or others. Onset of symptoms was June 18, 2024 at 12:30. 13:35 Method Of Arrival: EMS: [facility] tl4 13:35 Acuity: JARRETT 3 tl4 Triage Assessment: 13:46 General: Appears in no apparent distress. Behavior is calm, cooperative. Pain: tl4 Complains of pain in face. EENT: No deficits noted. No signs and/or symptoms were reported regarding the EENT system. Neuro: Level of Consciousness is awake, alert, obeys commands, Oriented to person, place, time, situation, Moves all extremities. Full function Speech is normal, Facial symmetry appears normal, Pupils are PERRLA. Cardiovascular: Denies chest pain, lightheadedness, shortness of breath, syncope, Capillary refill < 3 seconds Patient's skin is warm and dry. Respiratory: Airway is patent Respiratory effort is even, unlabored, Respiratory pattern is regular, symmetrical, Breath sounds are clear bilaterally. GI: Reports nausea, Patient currently denies abdominal pain, vomiting. : No deficits noted. No signs and/or symptoms were reported regarding the genitourinary system. Derm: Wound noted chin. Musculoskeletal: No signs and/or symptoms reported regarding the musculoskeletal system. Historical: - Allergies: 13:50 Codeine; tl4 13:50 tramadol; tl4 13:50 Tylenol-Codeine; tl4 - PMHx: 13:50 Alzheimers; COPD; Hernia; Pancreatitis; tl4 - PSHx: 13:50 Adenoid excision; Appendectomy; breast implants; Cholecystectomy; double masectomy; tl4 stomach surgery to prevent vomiting; Tonsillectomy; Total abdominal hysterectomy; - Immunization history:: Adult Immunizations unknown. - Infectious Disease History:: Denies. - Social history:: Smoking status: Patient/guardian denies using tobacco, the patient reports quitting approximately 40 years ago. Screenin:48 [facility] ED Fall Risk Assessment (Adult) History of falling in the last 3 months, tl4 including since admission Yes- fall prone (multiple falls) (3 pts) Confusion or Disorientation No (0 pts) Intoxicated or Sedated No (0 pts) Impaired Gait No (0 pts) Mobility Assist Device Used No (0 pt) Altered Elimination No (0 pt) Score/Fall Risk Level 3 or more points = High Risk Oriented to surroundings, Maintained a safe environment, Educated pt \T\ family on fall prevention, incl call for assistance when getting out of bed, Assessed \T\ reinforced patient's understanding of fall precautions, Hourly rounding (assess needs \T\ fall precautionary measures) done. Abuse screen: Denies threats or abuse. Denies injuries from another. Nutritional screening: No deficits noted. Tuberculosis screening: No symptoms or risk factors identified. Assessment: 14:48 Reassessment: No changes from previously documented assessment. Patient and/or family tl4 updated on plan of care and expected duration. Pain level reassessed. Patient is alert, oriented x 3, equal unlabored respirations, skin warm/dry/pink. Vital Signs: 13:35 BP 148 / 90; Pulse 65; Resp 20; Temp 98.4(O); Pulse Ox 98% on R/A; Weight 52.62 kg; tl4 Height 5 ft. 4 in. ; Pain 8/10; 14:49 BP 159 / 80; Pulse 63; Resp 16; Pulse Ox 96% on R/A; tl4 15:45 BP 145 / 75; Pulse 82; Resp 16; Temp 97.8(O); Pulse Ox 97% on R/A; tl4 13:35 Body Mass Index 19.91 (52.62 kg, 162.56 cm) tl4 13:35 Pain Scale: Adult tl4 Ejannie Coma Score: 15:30 Eye Response: spontaneous(4). Motor Response: obeys commands(6). Verbal Response: nargis oriented(5). Total: 15. ED Course: 13:24 Patient arrived in ED. bp 13:35 Melvin Dent, SANDY is Primary Nurse. tl4 13:39 Sean Seymour MD is Attending Physician. [facility] 13:46 Triage completed. tl4 13:48 Arm band placed on right wrist. tl4 13:49 Patient has correct armband on for positive identification. Placed in gown. Bed in low tl4 position. Call light in reach. Side rails up X2. Provided Education on: ed process, call hernandez. Client placed on continuous cardiac and pulse oximetry monitoring. NIBP monitoring applied. Door closed. Noise minimized. Lights dimmed. Moved to private room. Warm blanket given. 13:49 No provider procedures requiring assistance completed. Maintain EMS IV. Dressing tl4 intact. Good blood return noted. Site clean \T\ dry. Gauge \T\ site: 22g right hand. Flushed with 10 mL NS. 14:13 CT Head C Spine In Process Unspecified. EDMS 15:45 Patient did not have IV access during this emergency room visit. tl4 Administered Medications: 14:48 Drug: Boostrix Tdap IM 0.5 ml IM once; as a single dose {Note: [employer] Lot tl4 #[id number] Expiration date: 05/08/2025 VIS 04/08/2021.} Route: IM; Site: right deltoid; 15:15 Follow up: Response: No adverse reaction tl4 Medication: 13:48 VIS not applicable for this client. tl4 Outcome: 15:34 Discharge ordered by . [facility] 15:45 Discharged to home ambulatory, tl4 15:45 Condition: stable 15:45 Discharge instructions given to patient, Instructed on discharge instructions, follow up and referral plans. wound care, Demonstrated understanding of instructions, follow-up care, wound care, 16:09 Patient left the ED. tl4 Signatures: Dispatcher [employer] EDUT Sean Seymour MD MD cha Peltier, Brian, RN RN bp Melvin Dent, RN RN tl4
[2024-06-18 18:14] VITALS: BP 145/75; TEMP 97.8; O2SAT 97
== END 2024-06-18 16:09 | disposition home or self-care (01) ==
LOC: ER 12:56
DX: S01.81XA Laceration without foreign body of other part of head, initial encounter (principal); S60.222A Contusion of left hand, initial encounter; W18.30XA Fall on same level, unspecified, initial encounter; G30.9 Alzheimer's disease, unspecified; F02.80 Dementia in other diseases classified elsewhere, unspecified severity, without behavioral disturbance, psychotic disturbance, mood disturbance, and anxiety; Z98.82 Breast implant status
CPT/HCPCS: 12011; 70450; 72125; 96372; 99284

== ENCOUNTER 2024-06-25 09:09 | Emergency (ER) | payer OTHER, BC ==
--- OUTSIDE RECORDS SUMMARY | 2024-06-25 09:13 | XMS REPORT | Continuity of Care Document ---
Author Name Unknown Address [address] [place] [address] [facility] thconnect Address [address] [place] [address] Care Team Providers Care Digital Strategist Name Role Phone PCP, PATIENT DOES NOT HAVE A Primary Care Physic padmini Unavailable Seamus Castro MD Attending Clinician [phone] [email or web address] Attending Clinician UnavailNIECY Barber Attending Clinician Unavailab Niecy Collazo DO Attending Clinician [phone] RADIOLOGY Attending Clinician Unavailable Radiology Attending Clinician Unavailable MIKHAIL HURTADO Attending Clinician Unavailab sil [email or web address]_S Admitting Clinician UnavailNIECY Barber Admitting Clinician Unavailab MEKA Ricks Admitting Clinician Unavailable MIKHAIL HURTADO Admitting Clinician Unavailab le Payers Payer Name Policy Type Policy Number Effective Date Expirati on Date Source MEDICARE PART A \T\ B [id number] 2004 00:00:00 [employer] TRADITIONAL [id number] 2017 00:00:00 Problems Condition Name Condition Details Condition Category Status Onset Date Resolution Date Last Treatment Date Treating Clinician Comments Source No known active problems No known active problems Disease [facility] Allergies, Adverse Reactions, Alerts Allergy Name Allergy Type Status Severity Reaction(s) Onset Date Inactive Date Treating Clinician Comments Source CODEINE DRUG INGREDI Active N/V 09-18 00:00: 00 [facility] Codeine Propensi ty to adverse reaction s Active Nausea and/or Vomiting 09-18 00:00: 00 [facility] NO KNOWN ALLERGIE S Drug Class Active [facility] Social History Social Habit Start Date Stop Date Quantity Comments Source Gender identity 2023-11-25 02:02:51 Identifies as female gender (finding) [facility] History of tobacco use Current smoker [facility] Sexual orientation [facility] History of Social function 2023-12-11 00:00:00 2023-12-11 00:00:00 [facility] Exposure to SARS-CoV-2 (event) 2022-09-08 00:00:00 2022-09-18 09:01:00 Not sure [facility] Sex Assigned At 1940 00:00:00 1940 00:00:00 [facility] Smoking Status Start Date Stop Date Source Ex-smoker [facility] Tobacco smoking consumption unknown [facility] Medications Ordered Medication Name Filled Medication Name Start Date Stop Date Current Medication? Ordering Clinician Indication Dosage Frequency Signature (SIG) Comments Components Source mirtazapine (Remeron) 15 MG tablet mirtazapine (Remeron) 15 MG tablet 04-18 00:00: 00 Yes 15mg TAKE ONE (1) TABLET(S) BY MOUTH DAILY AT BEDTIME. Layton Garcia [facility] donepezil (Aricept) 5 MG tablet donepezil (Aricept) 5 MG tablet 2022-09 00:00: 00 Yes See Instructio ns, TAKE ONE (1) TABLET(S) BY MOUTH DAILY., # 30 ea, 3 Refill(s), Pharmacy: [facility], 162.56, cm, 06/14/23 9:48:00 CDT, Height, 61.023, kg, 06/14/23 9:48:00 CDT, Weight Layton Garcia [facility] memantine (Namenda) 5 MG tablet memantine (Namenda) [...] 09:05: 08 No No known medication s [facility] gadoteridol (PROHANCE-1 5 mL) injection 0.2 mL/kg 2019-09 21:45: 00 08-12 22:15 :00 No .2mL/kg 0.2 mL/kg, Intravenou s, ONCE, 1 dose, Leni 08/12/20 at 1545, Routine [facility] Vital Signs Vital Name Observation Time Observation Value Comments S ource Heart rate 2022-09-18 16:44:00 62 /min [facility] Respiratory rate 2022-09-18 16:44:00 20 /min [facility] Oxygen saturation in Arterial blood by Pulse oximetry 2022-09-18 16:44:00 99 /min [facility] Systolic blood pressure 2022-09-18 16:00:18 153 mm[Hg] [facility] Diastolic blood pressure 2022-09-18 16:00:18 86 mm[Hg] [facility] Body temperature 2022-09-18 15:03:00 36.89 Keesha [facility] Body height 2022-09-18 15:03:00 160 cm [facility] Body weight 2022-09-18 15:03:00 53.524 kg [facility] BMI 2022-09-18 15:03:00 20.90 kg/m2 [facility] Procedures Procedure Date / Time Performed Performing Clinicia n Source CT TRAUMA HEAD WO CONTRAST 2022-09-18 15:55:32 Niecy Ball [facility] CT TRAUMA CERVICAL SPINE WO CONTRAST 2022-09-18 15:55:32 Niecy Ball [facility] XR SHOULDER <2 VW LEFT 2022-09-18 15:40:40 Ashley Ball [facility] NOTICE OF PRIVACY PRACTICES 2022-09-18 14:59:10 Doctor Unassigned, Benson [facility] CONSENT/REFUSAL FOR DIAGNOSIS AND TREATMENT 2022-09-18 14:58:45 Doctor Unassigned, Benson [facility] MR ABDOMEN W WO CONTRAST MRCP 2020-08-12 22:16:07 Requisition, Paper [facility] NOTICE OF PRIVACY PRACTICES 2020-08-12 21:10:37 Doctor Unassigned, Benson [facility] CONSENT/REFUSAL FOR DIAGNOSIS AND TREATMENT 2020-08-12 21:10:07 Doctor Unassigned, Benson [facility] ASSIGNMENT OF BENEFITS 2020-08-12 21:09:46 Docto r Unassigned, Benson [facility] Encounters Start Date/Time End Date/Time Encounter Type Admission Type Attending [facility] Facility Care Department Encounter ID Source 2024-04-17 00:00:00 2024-04-18 10:18:36 Seamus Patel [id number] Layton Garcia [facility] 2023-07-03 00:00:00 2023-07-03 00:00:00 Outpatient [email or web address] [email or web address]_S PRIV PRIV [id number] [facility] 2023-07-02 00:00:00 2023-07-02 00:00:00 Outpatient [email or web address] [email or web address]_S PRIV PRIV [id number] [facility] 2022-09-18 09:05:00 2022-09-18 10:46:00 Emergency X NIECY BALL [facility] ERT [id number] [facility] 2022-09-18 09:05:00 2022-09-18 10:46:00 Emergency Niecy Ball [facility] [id number] [facility] 2020-08-12 15:11:31 2020-08-12 23:59:00 Outpatient R RADIOLOGY [facility] [id number] [facility] 2020-08-12 15:00:00 2020-08-12 23:59:00 Hospital Encounter Radiology [facility] [id number] [facility] 2020-08-12 15:00:00 2020-08-12 23:59:00 Hospital Encounter Radiology [facility] [id number] Results Test Description Test Time Test Comments [...] without and with contrast including MRCP studies. [facility], Radiant Results Inft User - 08/12/2020 4:29 [...] contrast including MRCP studies. [facility] [id number] 09:33:00* Test Item Value Reference Range Interpretation [...] assessment and management of chronic kidney failure. [facility] Notes Date/Time Note [id number] 10[facility]18:31 Medication filled, please call patient and have them schedule a follow up. Aedel Jose
[2024-06-25] MEDS ORDERED: KETOROLAC 30 MG/ML INJ ONE (09:44)
[2024-06-25] MEDS ORDERED: GABAPENTIN 300 MG CAP ONE (09:44)
--- NOTE | 2024-06-25 10:11 | EDPHYS ---
Physician Documentation [facility] Name: Milan Weir Age: 84 yrs Sex: Female : 1940 Arrival Date: 06/25/2024 Time: 09:09 Bed 6 Private MD: ED Physician John Ramon HPI: 06/25 09:27 This 84 yrs old Female presents to ER via Ambulatory with complaints of Back Pain. rn 09:27 The patient presents with pain that is chronic. The symptoms are located in the low rn back. Onset: The symptoms/episode began/occurred at an unknown time. Modifying factors: The patient symptoms are alleviated by nothing, the patient symptoms are aggravated by any movement. Severity of symptoms: At their worst the symptoms were moderate, in the emergency department the symptoms are unchanged. The patient has experienced similar episodes in the past, chronically. Patient reports back pain, chronic back pain, has had it for years, has had intermittent injections that helped for 7 to 8 months. States last injection 7 to 8 months ago. Denies any new fall or trauma. No new symptoms. No bowel or bladder issues. No weakness. Patient reports usually comes in for Demerol injection and that helps her.. Historical: - Allergies: 09:18 Tylenol-Codeine; iw 09:18 tramadol; iw - PMHx: 09:18 COPD; Alzheimers; Hernia; Pancreatitis; iw - PSHx: 09:18 Appendectomy; Adenoid excision; Cholecystectomy; breast implants; double masectomy; iw stomach surgery to prevent vomiting; Tonsillectomy; Total abdominal hysterectomy; - Immunization history:: Adult Immunizations up to date. - Infectious Disease History:: Denies. - Family history:: not pertinent. - Hospitalizations: : No recent hospitalization is reported. - Social history:: Smoking status: unknown. ROS: 09:27 Constitutional: Negative for fever, chills, and weight loss, Abdomen/GI: Negative for rn abdominal pain, nausea, vomiting, diarrhea, and constipation, Back: Positive for back pain MS/Extremity: Negative for lower extremity weakness Neuro: Negative for weakness or numbness Exam: :27 Constitutional: This is a well developed, well nourished patient who is awake, alert, rn and in no acute distress. Ambulatory to triage without assistance or difficulty Back: No focal spinal tenderness. Neuro: Awake and alert, GCS 15. Motor strength 5/5 in all extremities. Sensory grossly intact. Normal gait. Vital Signs: 09:17 BP 178 / 81; Pulse 67; Resp 16; Temp 98.1; Pulse Ox 100% on R/A; Weight 52.62 kg; iw Height 5 ft. 4 in. ; Pain 10/10; 09:17 Body Mass Index 19.91 (52.62 kg, 162.56 cm) iw 09:17 Pain Scale: Adult MDM: 09:13 Medical Screening Exam initiated rn 10:09 Differential diagnosis: arthritis, chronic back pain. Data reviewed: vital signs, rn nurses notes, and as a result, I will discharge patient. Counseling: I had a detailed discussion with the patient and/or guardian regarding the historical points, exam findings, and any diagnostic results supporting the discharge/admit diagnosis, the need for outpatient follow up, to return to the emergency department if symptoms worsen or persist or if there are any questions or concerns that arise at home. Special discussion: I discussed with the patient/guardian in detail that at this point there is no indication for admission to the hospital. It is understood, however, that if the symptoms persist or worsen the patient needs to return immediately for re-evaluation. Administered Medications: 09:48 Drug: Ketorolac IM 15 mg IM once Route: IM; Site: right gluteus; hb 10:22 Follow up: Response: No adverse reaction bp 09:48 Drug: Gabapentin PO 300 mg PO once Route: PO; hb 10:21 Follow up: Response: No adverse reaction bp Disposition Summary: 06/25/24 10:10 Discharge Ordered Notes: Location: Home rn Problem: new rn Symptoms: have improved rn Condition: Stable rn Diagnosis - Low back pain rn Followup: rn - With: Private Physician - When: As needed - Reason: Recheck today's complaints, Re-evaluation by your physician Discharge Instructions: - Discharge Summary Sheet rn - Chronic Back Pain rn Forms: - Medication Reconciliation Form rn - Antibiotic burner technician - Prescription Opioid Use rn - Patient Portal Instructions rn - Leadership Thank You Letter rn Prescriptions: - gabapentin 100 mg Oral capsule - take 1 capsule ORAL route every 12 hours As needed; 20 capsule; Refills: 0, rn Product Selection Permitted Signatures: Sammie John RN RN Ramon, John, MD MD rn Hathaway, Richa, RN RN hb Aditi, Donaldo, RN RN bp
--- NOTE | 2024-06-25 10:11 | ER ---
Nurse's Notes [facility] Name: Milan Weir Age: 84 yrs Sex: Female : 1940 Arrival Date: 06/25/2024 Time: 09:09 Bed 6 Private MD: Diagnosis: Low back pain Presentation: 06/25 09:17 Chief complaint: Patient states: ongoing back pain that is not better , started years iw ago , the entire back hurts , she has a procedure one a year for the pain. Coronavirus screen: At this time, the client does not indicate any symptoms associated with coronavirus-19. Ebola Screen: No symptoms or risks identified at this time. Initial Sepsis Screen: Does the patient meet any 2 criteria? No. Patient's initial sepsis screen is negative. Does the patient have a suspected source of infection? No. Patient's initial sepsis screen is negative. Risk Assessment: Do you want to hurt yourself or someone else? Patient reports no desire to harm self or others. Onset of symptoms. 09:17 Method Of Arrival: Ambulatory iw 09:17 Acuity: JARRETT 3 iw Triage Assessment: : General: Appears in no apparent distress. Behavior is cooperative, appropriate for age, bp agitated. Pain: Complains of pain in back. EENT: No deficits noted. Neuro: No deficits noted. Cardiovascular: No deficits noted. Respiratory: No deficits noted. GI: No signs and/or symptoms were reported involving the gastrointestinal system. : No signs and/or symptoms were reported regarding the genitourinary system. Derm: No deficits noted. Musculoskeletal: Circulation, motion, and sensation intact. Range of motion: intact in all extremities. Historical: - Allergies: 09:18 Tylenol-Codeine; iw 09:18 tramadol; iw - PMHx: 09:18 COPD; Alzheimers; Hernia; Pancreatitis; iw - PSHx: 09:18 Appendectomy; Adenoid excision; Cholecystectomy; breast implants; double masectomy; iw stomach surgery to prevent vomiting; Tonsillectomy; Total abdominal hysterectomy; - Immunization history:: Adult Immunizations up to date. - Infectious Disease History:: Denies. - Family history:: not pertinent. - Hospitalizations: : No recent hospitalization is reported. - Social history:: Smoking status: unknown. Screenin:20 [facility] ED Fall Risk Assessment (Adult) History of falling in the last 3 months, bp including since admission No falls in past 3 months (0 pts) Confusion or Disorientation No (0 pts) Intoxicated or Sedated No (0 pts) Impaired Gait No (0 pts) Mobility Assist Device Used No (0 pt) Altered Elimination No (0 pt) Score/Fall Risk Level 0 - 2 = Low Risk. Abuse screen: Denies threats or abuse. Denies injuries from another. Nutritional screening: No deficits noted. Tuberculosis screening: No symptoms or risk factors identified. Assessment: 09:20 General: Appears in no apparent distress. Behavior is appropriate for age, agitated. bp Pain: Complains of pain in back. Neuro: Level of Consciousness is awake, alert, obeys commands, Oriented to Appropriate for age Gait is steady. Cardiovascular: Rhythm is sinus rhythm. Respiratory: No deficits noted. GI: No signs and/or symptoms were reported involving the gastrointestinal system. : No signs and/or symptoms were reported regarding the genitourinary system. EENT: No deficits noted. Derm: No deficits noted. Vital Signs: 09:17 BP 178 / 81; Pulse 67; Resp 16; Temp 98.1; Pulse Ox 100% on R/A; Weight 52.62 kg; iw Height 5 ft. 4 in. ; Pain 10/10; 09:17 Body Mass Index 19.91 (52.62 kg, 162.56 cm) iw 09:17 Pain Scale: Adult iw ED Course: 09:12 Patient arrived in ED. mr 09:13 John Ramon MD is Attending Physician. rn 09:18 Triage completed. iw 09:18 Arm band placed on. iw 09:20 Patient has correct armband on for positive identification. bp 10:18 Donaldo Pennington, SANDY is Primary Nurse. bp 10:21 No provider procedures requiring assistance completed. Patient did not have IV access bp during this emergency room visit. Administered Medications: 09:48 Drug: Ketorolac IM 15 mg IM once Route: IM; Site: right gluteus; hb 10:22 Follow up: Response: No adverse reaction bp 09:48 Drug: Gabapentin PO 300 mg PO once Route: PO; hb 10:21 Follow up: Response: No adverse reaction bp Medication: 09:20 VIS not applicable for this client. bp Outcome: 10:10 Discharge ordered by . rn 10:21 Discharged to home ambulatory, bp 10:21 Condition: stable 10:21 Discharge instructions given to patient, Instructed on discharge instructions, follow up and referral plans. 10:22 Patient left the ED. bp Signatures: Ivonne Cota, Reg Reg Sammie John, RN RN iw John Ramon MD MD rn Baxter, Heather, RN RN hb Peltier, Brian, RN RN bp Corrections: (The following items were deleted from the chart) 09:17 Chief complaint: Patient states: ongoing back pain that is not better , started iw years ago , the entire back hurts iw : 09:17 Pulse 67bpm; Resp 16bpm; Pulse Ox 100% RA; Pain 06/12, Adult; iw iw
[2024-06-25 15:38] VITALS: BP 178/81; TEMP 98.1; O2SAT 100
== END 2024-06-25 10:22 | disposition home or self-care (01) ==
LOC: ER 09:09
DX: M54.50 Low back pain, unspecified (principal)
CPT/HCPCS: 96372; 99284

== ENCOUNTER 2024-06-28 12:19 | Emergency (ER) | payer OTHER, BC ==
--- OUTSIDE RECORDS SUMMARY | 2024-06-28 12:22 | XMS REPORT | Continuity of Care Document ---
Author Name Unknown Address [address] [place] [address] [facility] thconnect Address [address] [place] [address] Care Team Providers Care Stone Crusher Operator Name Role Phone PCP, PATIENT DOES NOT HAVE A Primary Care Physic padmini Unavailable Seamus Castro MD Attending Clinician [phone] [email or web address] Attending Clinician UnavailNIECY Barber Attending Clinician Unavailab Niecy Collazo DO Attending Clinician [phone] RADIOLOGY Attending Clinician Unavailable Radiology Attending Clinician Unavailable MIKHAIL HURTADO Attending Clinician Unavailab sil [email or web address]_S Admitting Clinician UnavailNIECY Barber Admitting Clinician Unavailab MEKA Ricks Admitting Clinician Unavailable MIKHAIL HURTADO Admitting Clinician Unavailab le Payers Payer Name Policy Type Policy Number Effective Date Expirati on Date Source MEDICARE PART A \T\ [id number] 2004 00:00:00 [employer] TRADITIONAL [id number] 2017 00:00:00 Problems Condition Name Condition Details Condition Category Status Onset Date Resolution Date Last Treatment Date Treating Clinician Comments Source No known active problems No known active problems Disease [facility] Allergies, Adverse Reactions, Alerts Allergy Name Allergy Type Status Severity Reaction(s) Onset Date Inactive Date Treating Clinician Comments Source CODEINE DRUG INGREDI Active N/V 09-18 00:00: 00 [facility] Codeine Propensi ty to adverse reaction s Active Nausea and/or Vomiting 09-18 00:00: 00 [facility] NO KNOWN ALLERGIE S Drug Class Active [facility] Social History Social Habit Start Date Stop Date Quantity Comments Source Gender identity 2023-11-25 02:02:51 Identifies as female gender (finding) [facility] History of tobacco use Current smoker [facility] Sexual orientation [facility] History of Social function 2023-12-11 00:00:00 2023-12-11 00:00:00 [facility] Exposure to SARS-CoV-2 (event) 2022-09-08 00:00:00 2022-09-18 09:01:00 Not sure [facility] Sex Assigned At 1940 00:00:00 1940 00:00:00 [facility] Smoking Status Start Date Stop Date Source Ex-smoker [facility] Tobacco smoking consumption unknown [facility] Medications Ordered Medication Name Filled Medication Name Start Date Stop Date Current Medication? Ordering Clinician Indication Dosage Frequency Signature (SIG) Comments Components Source mirtazapine (Remeron) 15 MG tablet mirtazapine (Remeron) 15 MG tablet 04-18 00:00: 00 Yes 15mg TAKE ONE (1) TABLET(S) BY MOUTH DAILY AT BEDTIME. [facility] donepezil (Aricept) 5 MG tablet donepezil (Aricept) 5 MG tablet 2022-09 00:00: 00 Yes See Instructio ns, TAKE ONE (1) TABLET(S) BY MOUTH DAILY., # 30 ea, 3 Refill(s), Pharmacy: [facility], 162.56, cm, 06/14/23 9:48:00 CDT, Height, 61.023, kg, 06/14/23 9:48:00 CDT, Weight [facility] memantine (Namenda) 5 MG tablet memantine [...] 09:05: 08 No No known medication s [facility] gadoteridol (PROHANCE-1 5 mL) injection 0.2 mL/kg 2019-09 21:45: 00 08-12 22:15 :00 No .2mL/kg 0.2 mL/kg, Intravenou s, ONCE, 1 dose, Leni 08/12/20 at 1545, Routine [facility] Vital Signs Vital Name Observation Time Observation Value Comments S ource Heart rate 2022-09-18 16:44:00 62 /min [facility] Respiratory rate 2022-09-18 16:44:00 20 /min [facility] Oxygen saturation in Arterial blood by Pulse oximetry 2022-09-18 16:44:00 99 /min [facility] Systolic blood pressure 2022-09-18 16:00:18 153 mm[Hg] [facility] Diastolic blood pressure 2022-09-18 16:00:18 86 mm[Hg] [facility] Body temperature 2022-09-18 15:03:00 36.89 Keesha [facility] Body height 2022-09-18 15:03:00 160 cm [facility] Body weight 2022-09-18 15:03:00 53.524 kg [facility] BMI 2022-09-18 15:03:00 20.90 kg/m2 [facility] Procedures Procedure Date / Time Performed Performing Clinicia n Source CT TRAUMA HEAD WO CONTRAST 2022-09-18 15:55:32 Niecy Ball [facility] CT TRAUMA CERVICAL SPINE WO CONTRAST 2022-09-18 15:55:32 Niecy Ball [facility] XR SHOULDER <2 VW LEFT 2022-09-18 15:40:40 Ashley Ball [facility] NOTICE OF PRIVACY PRACTICES 2022-09-18 14:59:10 Doctor Unassigned, [place] [facility] CONSENT/REFUSAL FOR DIAGNOSIS AND TREATMENT 2022-09-18 14:58:45 Doctor Unassigned, [place] [facility] MR ABDOMEN W WO CONTRAST MRCP 2020-08-12 22:16:07 Requisition, Paper [facility] NOTICE OF PRIVACY PRACTICES 2020-08-12 21:10:37 Doctor Unassigned, [place] [facility] CONSENT/REFUSAL FOR DIAGNOSIS AND TREATMENT 2020-08-12 21:10:07 Doctor Unassigned, [place] [facility] ASSIGNMENT OF BENEFITS 2020-08-12 21:09:46 Docto r Unassigned, [place] [facility] Encounters Start Date/Time End Date/Time Encounter Type Admission Type Attending [facility] Facility Care Department Encounter ID Source 2024-04-17 00:00:00 2024-04-18 10:18:36 Seamus Patel [id number] [facility] 2023-07-03 00:00:00 2023-07-03 00:00:00 Outpatient [email or web address] [email or web address] PRIV PRIV [id number] [facility] 2023-07-02 00:00:00 2023-07-02 00:00:00 Outpatient [email or web address] [email or web address]_S PRIV PRIV [id number] [facility] 2022-09-18 09:05:00 2022-09-18 10:46:00 Emergency X NIECY BALL [facility] ERT [id number] [facility] 2022-09-18 09:05:00 2022-09-18 10:46:00 Emergency Niecy Ball [facility] [id number] [facility] 2020-08-12 15:11:31 2020-08-12 23:59:00 Outpatient R RADIOLOGY [facility] [id number] [facility] 2020-08-12 15:00:00 2020-08-12 23:59:00 Hospital Encounter Radiology [facility] [id number] [facility] 2020-08-12 15:00:00 2020-08-12 23:59:00 Hospital Encounter Radiology [facility] [id number] Results Test Description Test Time Test Comments [...] without and with contrast including MRCP studies. [facility], Radiant Results Inft User - 08/12/2020 [...] without and with contrast including MRCP studies. [facility] [id number] 09:33:00* Test Item Value Reference Range Interpretation [...] assessment and management of chronic kidney failure. [facility] Notes Date/Time Note Provider [id number] 10:18:46* [id number] 10:18:31 Medication filled, please call patient and have them schedule a follow up. Adeel Jose
[2024-06-28] MEDS ORDERED: NA CHLORIDE 0.9% 1,000 ML ONE (13:02)
[2024-06-28 13:40] LABS: Absolute Eosinophils 0.3 K/uL (0-0.5); Absolute Monocytes 0.6 K/uL (0.1-1.3); Absolute Neutrophil 4.8 K/uL (1.8-8.0); Basophils % 0.5 % (0-1.3); Eosinophils % 3.4 % (0-4.4); Hemoglobin 13.4 g/dL (12.0-15.0); MCHC 34.4 g/dL (32.0-36.0); MCV 93.1 fL (80-100); MPV 7.3 fL (7.6-11.3); Monocytes % 7.2 % (3.3-12.3); Neutrophils % 62.9 % (41.7-73.7); Platelets 273 thou/uL (152-406); RBC Red Blood Cell Count 4.19 M/uL (3.86-4.86); Red Cell Distribution Width 13.4 % (12.1-15.2)
[2024-06-28 14:00] LABS: AST/SGOT 14 U/L (15-37); Albumin 3.4 g/dL (3.4-5.0); Albumin/Globulin Ratio 0.9 (1.1-1.8); Alkaline Phosphatase 88 U/L (45-117); Anion Gap 9.5 mEq/L (5.0-15.0); BUN Blood Urea Nitrogen 8 mg/dL (7-18); Bicarbonate 29 mEq/L (21-32); Bilirubin Total 0.5 mg/dL (0.2-1.0); Globulin 3.6 g/dL (2.3-3.5); Glomerular Filtration Rate 66 ml/min (=/>90); Glucose Level 100 mg/dL (74-106); Lipase 53 U/L (13-75); Sodium Level 140 mEq/L (136-145)
[2024-06-28 14:01] LABS: ALT/SGPT < 14 U/L (13-56)
[2024-06-28 14:03] LABS: Potassium 2.5 mEq/L (3.5-5.1)
[2024-06-28] MEDS ORDERED: POTASSIUM CL SA 10 MEQ TAB PO ONE (14:34)
[2024-06-28 15:11] LABS: SARS-CoV-2 Antigen CONTROL BLUE LINE VIS/BG OK; SARS-CoV-2 Antigen Rapid Res Negative (Negative)
[2024-06-28 15:19] LABS: Specific Gravity 1.011 (1.005-1.030); Sqamous Epithelial <5 /HPF (None Seen); Urine Bacteria <20 /HPF (<20); Urine Bilirubin NEGATIVE (Negative); Urine Blood Trace (Negative); Urine Clarity Turbid (Clear); Urine Color Light-Yellow (Yellow); Urine Culture Reflex Order REFLEXED; Urine Glucose NEGATIVE (Negative); Urine Ketones NEGATIVE (Negative); Urine Microscopic Reflex YN ORDER UMIC; Urine Mucus 2+ /HPF (None Seen); Urine Nitrite NEGATIVE (Negative); Urine Protein NEGATIVE (Negative); Urine Urobilinogen Normal (Normal); Urine WBC 20-50 /HPF (<5)
--- NOTE | 2024-06-28 15:32 | RAD REPORT ---
EXAMINATION: CT Abdomen Pelvis Wo Contrast CLINICAL INDICATION: Female, 84 years old. ABD PAIN TECHNIQUE: CT abdomen and pelvis was performed, without IV contrast, as per department protocol. Axia l, sagittal and coronal reconstructions were obtained. One or more of the following dose reduction techniques were used: Automated exposure control, adjustment of the mA and kV according to the patien t size, and iterative reconstruction. Unless otherwise specified, incidental findings do not require dedicated imaging follow-up. COMPARISON: CT abdomen and pelvis 06/09/2024. FINDINGS: The lack of intravenous contrast limits the sensitivity of this exam for evaluation of solid visceral organs, vascular structures, and retroperitoneum. LOWER CHEST: The visualized lung bases are clear. LIVER: Normal in size and contour. No focal lesion. BILIARY SYSTEM: Status post cholecystectomy. SPLEEN: Normal size. No focal lesion. PANCREAS: No mass, ductal dilation, or jacki-pancreatic fluid. ADRENALS: Normal; no mass. KIDNEYS AND URETERS: Normal size and contour. No hydronephrosis. URINARY BLADDER: Normal contour. GASTROINTESTINAL TRACT: No evidence of bowel obstruction, significant free fluid, free air or abscess . Distal colonic diverticulosis. APPENDIX: Normal appendix. LYMPH NODES: No lymphadenopathy. MUSCULOSKELETAL: No acute or suspicious osseous abnormality. ADDITIONAL FINDINGS: Status post hysterectomy.. IMPRESSION: No acute or concerning abnormalities in the abdomen or pelvis, with evaluation limited by lack of IV contrast. Distal colonic diverticulosis.
--- NOTE | 2024-06-28 15:46 | EDPHYS ---
Physician Documentation [facility] Name: Milan Weir Age: 84 yrs Sex: Female : 1940 Arrival Date: 06/28/2024 Time: 12:19 Bed 15 Private MD: RASHAAD Physician Sean Seymour HPI: 06/28 12:44 This 84 yrs old Female presents to ER via Ambulatory with complaints of Rectal Pain. kb 12:44 Pt is an 84 year old female who presents for hemorrhoids, diarrhea, chronic back pain kb and malaise, States she has had that back pain and hemorrhoids for 10 years but the diarrhea and malaise started yesterday. Denies fever, nausea, vomiting. Historical: - Allergies: 12:43 Codeine; aa5 12:43 tramadol; aa5 12:43 Tylenol-Codeine; aa5 - PMHx: 12:43 Alzheimers; COPD; Hernia; Pancreatitis; aa5 12:45 Hard of hearing; aa5 - PSHx: 12:43 Appendectomy; Adenoid excision; Cholecystectomy; breast implants; double masectomy; aa5 stomach surgery to prevent vomiting; Tonsillectomy; Total abdominal hysterectomy; - Immunization history:: Adult Immunizations unknown. - Infectious Disease History:: Denies. - Social history:: Smoking status: Patient/guardian denies using tobacco, but has a distant history of tobacco abuse. ROS: 12:44 Constitutional: As per HPI kb Exam: 12:44 Constitutional: This is a well developed, well nourished patient who is awake, alert, kb and in no acute distress. Head/Face: Normocephalic, atraumatic. ENT: Moist Mucous membranes Cardiovascular: Regular rate Respiratory: Respirations even and unlabored. No increased work of breathing. Talking in full sentences Back: No spinal tenderness. No costovertebral tenderness. Full range of motion. Skin: Warm, dry with normal turgor. Normal color. MS/ Extremity: Pulses equal, no cyanosis. Neurovascular intact. Full, normal range of motion. Neuro: Awake and alert, GCS 15, oriented to person, place, time, and situation. 12:44 Abdomen/GI: Inspection: abdomen appears normal, Bowel sounds: normal, Palpation: soft, in all quadrants, mild abdominal tenderness, in the left lower quadrant, Vital Signs: 12:43 BP 152 / 100; Pulse 63; Resp 19 S; Temp 97.7(O); Pulse Ox 98% on R/A; Weight 52.62 kg aa5 (R); Height 5 ft. 4 in. (R); 13:00 BP 160 / 82; Pulse 62; Resp 16; Pulse Ox 98% ; ko1 14:00 BP 158 / 76; Pulse 64; Resp 16; Pulse Ox 99% ; ko1 15:00 BP 164 / 80; Pulse 70; Resp 14; Pulse Ox 99% ; ko1 12:43 Body Mass Index 19.91 (52.62 kg, 162.56 cm) aa5 MDM: 12:24 Medical Screening Exam initiated kb 12:47 Data reviewed: vital signs, nurses notes. kb 13:21 Transition of care: After a detail discussion of the patient's case, care is kb transferred to Fran Canseco [facility]. 17:30 Differential diagnosis: hemorrhoids, fissure, CKD, Dehydration. Data reviewed: vital dr5 signs, nurses notes. Consideration of Admission/Observation Patient was admitted/placed on observation. Escalation of care including admission/observation considered. I considered the following discharge prescriptions or medication management in the emergency department Medications were administered in the Emergency Department. See MAR. Care significantly affected by the following chronic conditions: Diabetes, Hypertension, COPD, Alzheimers. Care significantly affected by the following Social Determinants of Health: Poor access to healthcare and/or lack of insurance, Poor access to transportation. Counseling: I had a detailed discussion with the patient and/or guardian regarding the historical points, exam findings, and any diagnostic results supporting the discharge/admit diagnosis, the presence of at least one elevated blood pressure reading (>120/80) during this emergency department visit, lab results, radiology results, the need for outpatient follow up, for definitive care, a family practitioner, to return to the emergency department if symptoms worsen or persist or if there are any questions or concerns that arise at home. Response to treatment: the patient's symptoms have markedly improved after treatment. ED course: Pt did not want to wait after CT scan was completed. Pt breathing without difficulty. No complaints. Patient reported that she will follow up with her PCP. I did recommend that she follow up because she might be a good candidate for pain management. . 06/28 12:41 Order name: CBC with Diff; Complete Time: 14:05 aa5 06/28 12:41 Order name: CMP; Complete Time: 14:05 aa5 06/28 12:41 Order name: Lipase; Complete Time: 14:05 aa5 06/28 12:41 Order name: Urinalysis w/ reflexes; Complete Time: 15:43 aa5 06/28 12:43 Order name: Flu; Complete Time: 15:12 aa5 06/28 12:43 Order name: SARS-COV-2 Antigen Rapid; Complete Time: 15:11 aa5 06/28 15:46 Order name: Urine Culture EDCT 06/28 14:58 Order name: Abdomen ; Complete Time: 15:38 EDCT 06/28 12:42 Order name: IV Saline Lock; Complete Time: 13:33 aa5 06/28 12:42 Order name: Labs collected and sent; Complete Time: 13:33 aa5 Administered Medications: 13:33 Drug: NS 0.9% IV 1000 ml IV at 1 bolus Per protocol; to be given as a bolus over 60 ko1 minutes Route: IV; Rate: 1 bolus; Site: right antecubital; 15:30 Follow up: Response: No adverse reaction; IV Status: Completed infusion; IV Intake: ko1 1000ml 14:32 Drug: Potassium Chloride PO 40 mEq PO once Route: PO; ko1 15:03 Follow up: Response: No adverse reaction ko1 Disposition Summary: 06/28/24 15:45 Discharge Ordered Notes: Location: Home dr5 Condition: Stable dr5 Diagnosis - Lower abdominal pain, unspecified dr5 Followup: dr5 - With: Emergency Department - When: As needed - Reason: Worsening of condition Followup: dr5 - With: Private Physician - When: 1 - 2 days - Reason: Recheck today's complaints, Continuance of care, Re-evaluation by your physician Discharge Instructions: - Discharge Summary Sheet dr5 - Abdominal Pain, Adult dr5 Forms: - Medication Reconciliation Form dr5 - Patient Portal Instructions dr5 - Leadership Thank You Letter dr5 Signatures: Dispatcher [employer] [facility] Petra Sanches, CLIENT TECHNICAL PROFESSIONAL-C CLIENT TECHNICAL PROFESSIONAL-Elena Howard, RN RN aa5 Kayla Hart RN RN ko1 Fran Canseco, CLIENT TECHNICAL PROFESSIONAL-C CLIENT TECHNICAL PROFESSIONAL-Cdr5 Corrections: (The following items were deleted from the chart) 12:42 12:42 CBC+H.LAB.BRZ ordered. EDMS EDMS 12:42 12:42 COMPREHENSIVE METABOLIC PANEL+C.LAB.BRZ ordered. EDMS EDMS 12:42 12:42 LIPASE+C.LAB.BRZ ordered. EDMS EDMS 12:42 12:42 Urinalysis+U.LAB.BRZ ordered. EDMS EDMS 12:42 12:42 Abdomen Pelvis W Con+CT.RAD.BRZ ordered. EDMS EDMS
--- NOTE | 2024-06-28 15:46 | ER ---
Nurse's Notes [facility] Name: Milan Weir Age: 84 yrs Sex: Female : 1940 Arrival Date: 06/28/2024 Time: 12:19 Bed 15 Private MD: Diagnosis: Lower abdominal pain, unspecified Presentation: 06/28 12:43 Chief complaint: Patient states: diarrhea that began yesterday, pt reports lower abd aa5 pain. Coronavirus screen: At this time, the client does not indicate any symptoms associated with coronavirus-19. Ebola Screen: Patient denies travel to an Ebola-affected area in the 21 days before illness onset. Initial Sepsis Screen: Does the patient meet any 2 criteria? No. Patient's initial sepsis screen is negative. Does the patient have a suspected source of infection? No. Patient's initial sepsis screen is negative. Risk Assessment: Do you want to hurt yourself or someone else? Patient reports no desire to harm self or others. Onset of symptoms was June 2024. 12:43 Acuity: JARRETT 3 aa5 12:43 Method Of Arrival: Ambulatory aa5 Historical: - Allergies: 12:43 Codeine; aa5 12:43 tramadol; aa5 12:43 Tylenol-Codeine; aa5 - PMHx: 12:43 Alzheimers; COPD; Hernia; Pancreatitis; aa5 12:45 Hard of hearing; aa5 - PSHx: 12:43 Appendectomy; Adenoid excision; Cholecystectomy; breast implants; double masectomy; aa5 stomach surgery to prevent vomiting; Tonsillectomy; Total abdominal hysterectomy; - Immunization history:: Adult Immunizations unknown. - Infectious Disease History:: Denies. - Social history:: Smoking status: Patient/guardian denies using tobacco, but has a distant history of tobacco abuse. Screenin:00 [facility] ED Fall Risk Assessment (Adult) History of falling in the last 3 months, ko1 including since admission No falls in past 3 months (0 pts) Confusion or Disorientation No (0 pts) Intoxicated or Sedated No (0 pts) Impaired Gait No (0 pts) Mobility Assist Device Used No (0 pt) Altered Elimination No (0 pt) Score/Fall Risk Level 0 - 2 = Low Risk Oriented to surroundings, Maintained a safe environment, Educated pt \T\ family on fall prevention, incl call for assistance when getting out of bed, Assessed \T\ reinforced patient's understanding of fall precautions, Hourly rounding (assess needs \T\ fall precautionary measures) done. Abuse screen: Denies threats or abuse. Denies injuries from another. Nutritional screening: No deficits noted. Tuberculosis screening: No symptoms or risk factors identified. Assessment: 13:00 General: Appears in no apparent distress. Behavior is calm, cooperative, appropriate ko1 for age. Pain: Complains of pain in left lower quadrant. Neuro: No deficits noted. Cardiovascular: No deficits noted. Respiratory: No deficits noted. GI: Reports diarrhea. : No deficits noted. EENT: No deficits noted. Derm: No deficits noted. Musculoskeletal: No deficits noted. 13:30 Reassessment: patient states the only reason she is here is for a prescription for ko1 something to help her sleep and deal with the pain. Vital Signs: 12:43 BP 152 / 100; Pulse 63; Resp 19 S; Temp 97.7(O); Pulse Ox 98% on R/A; Weight 52.62 kg aa5 (R); Height 5 ft. 4 in. (R); 13:00 BP 160 / 82; Pulse 62; Resp 16; Pulse Ox 98% ; ko1 14:00 BP 158 / 76; Pulse 64; Resp 16; Pulse Ox 99% ; ko1 15:00 BP 164 / 80; Pulse 70; Resp 14; Pulse Ox 99% ; ko1 12:43 Body Mass Index 19.91 (52.62 kg, 162.56 cm) aa5 ED Course: 12:23 Patient arrived in ED. ra3 12:24 Petra Sanches FNP-C is PHCP. kb 12:24 Sean Seymour MD is Attending Physician. kb 12:43 Arm band placed on. aa5 12:44 Triage completed. aa5 13:00 Kayla Hart, SANDY is Primary Nurse. ko1 13:00 Patient has correct armband on for positive identification. Allergy band placed. Bed in ko1 low position. Call light in reach. Side rails up X 1. Provided Education on: labs. Pulse ox on. NIBP on. Door closed. Noise minimized. Lights dimmed. Warm blanket given. Pillow given. 13:00 No provider procedures requiring assistance completed. ko1 13:21 PHCP role handed off by Petra Sanches FNP-C kb 13:21 Fran Canseco FNP-C is PHCP. kb 13:30 Initial lab(s) drawn, by me, held in ED. Inserted saline lock: 22 gauge in right ko1 antecubital area, using aseptic technique. Blood collected. Flushed with 10 mL NS. 13:33 CBC with Diff Sent. ko1 13:33 SARS-COV-2 Antigen Rapid Sent. ko1 13:33 Flu Sent. ko1 13:33 CMP Sent. ko1 13:33 Lipase Sent. ko1 14:32 Urinalysis w/ reflexes Sent. ko1 14:48 Urine collected: clean catch specimen, clear. ko1 14:58 Abdomen In Process Unspecified. EDMS 15:00 Assisted to bathroom. ko1 15:00 IV discontinued, intact, bleeding controlled, No redness/swelling at site. Pressure ko1 dressing applied. Administered Medications: 13:33 Drug: NS 0.9% IV 1000 ml IV at 1 bolus Per protocol; to be given as a bolus over 60 ko1 minutes Route: IV; Rate: 1 bolus; Site: right antecubital; 15:30 Follow up: Response: No adverse reaction; IV Status: Completed infusion; IV Intake: ko1 1000ml 14:32 Drug: Potassium Chloride PO 40 mEq PO once Route: PO; ko1 15:03 Follow up: Response: No adverse reaction ko1 Medication: 13:00 VIS not applicable for this client. ko1 Intake: 15:30 IV: 1000ml; Total: 1000ml. ko1 Outcome: 15:45 Discharge ordered by . ary 15:48 Discharged to home ambulatory, ko1 15:48 Condition: stable 15:48 Discharge instructions given to patient, Instructed on discharge instructions, follow up and referral plans. Demonstrated understanding of instructions, follow-up care, 15:49 Patient left the ED. ko1 Addendum: 07/02/2024 16:00 Addendum: Culture Results: Phone call Other not a working number. l l1 Signatures: Dispatcher [employer] [facility] Petra Sanches FNP-C FNP-Ckb Calderon, Audri, RN RN aa5 Zaira Zheng RN RN ll1 Kayla Hart RN RN ko1 Sheridan Astorga ra3 Canseco, Fran, JOB SITE SUPERINTENDENT-C JOB SITE SUPERINTENDENT-Cdr5 Corrections: (The following items were deleted from the chart) 16:35 16:00 Addendum: Culture Results: Phone call ll1 ll1
[2024-06-29 01:27] VITALS: TEMP 97.7
[2024-06-29 01:38] VITALS: O2SAT 99
[2024-06-29 01:39] VITALS: BP 164/80
== END 2024-06-28 15:49 | disposition home or self-care (01) ==
LOC: ER 12:19
DX: R10.32 Left lower quadrant pain (principal); R19.7 Diarrhea, unspecified; R53.81 Other malaise; Z11.52 Encounter for screening for COVID-19; Z98.82 Breast implant status
CPT/HCPCS: 96361; 87088; 85025; 81001; 87086; 36415; 87077; 87186; 83690; 80053; 87804 ×2; 74176; 96360; 99284; 87811; J7030

== ENCOUNTER 2024-07-16 13:59 | Emergency (ER) | payer OTHER, BC ==
--- OUTSIDE RECORDS SUMMARY | 2024-07-16 14:02 | XMS REPORT | Continuity of Care Document ---
Author Name Unknown Address [address] [place] [address] [facility]connect Address 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 Name Role Phone PCP, PATIENT DOES NOT HAVE A Primary Care Physic padmini Unavailable Seamus Castro MD Attending Clinician [phone] [email or web address]_S Attending Clinician UnavailNIECY Barber Attending Clinician Unavailab Niecy Collazo DO Attending Clinician [phone] RADIOLOGY Attending Clinician Unavailable Radiology Attending Clinician Unavailable MIKHAIL HURTADO Attending Clinician Unavailab sil [email or web address]_S Admitting Clinician UnavailNIECY Barber Admitting Clinician Unavailab MEKA Ricks Admitting Clinician Unavailable MIKHAIL HURTADO Admitting Clinician Unavailab le Payers Payer Name Policy Type Policy Number Effective Date Expirati on Date Source MEDICARE PART A \T\ B [id number] 2004 00:00:00 [employer] TRADITIONAL [id number] 2017 00:00:00 Problems Condition Name Condition Details Condition Category Status Onset Date Resolution Date Last Treatment Date Treating Clinician Comments Source No known active problems No known active problems Disease [facility] Allergies, Adverse Reactions, Alerts Allergy Name Allergy Type Status Severity Reaction(s) Onset Date Inactive Date Treating Clinician Comments Source CODEINE DRUG INGREDI Active N/V 09-18 00:00: 00 [facility] Codeine Propensi ty to adverse reaction s Active Nausea and/or Vomiting 09-18 00:00: 00 [facility] NO KNOWN ALLERGIE S Drug Class Active [facility] Social History Social Habit Start Date Stop Date Quantity Comments Source Gender identity 2023-11-25 02:02:51 Identifies as female gender (finding) [facility] History of tobacco use Current smoker [facility] Sexual orientation [facility] History of Social function 2023-12-11 00:00:00 2023-12-11 00:00:00 [facility] Exposure to SARS-CoV-2 (event) 2022-09-08 00:00:00 2022-09-18 09:01:00 Not sure [facility] Sex Assigned At 1940 00:00:00 1940 00:00:00 [facility] Smoking Status Start Date Stop Date Source Ex-smoker [facility] Tobacco smoking consumption unknown [facility] Medications Ordered Medication Name Filled Medication Name Start Date Stop Date Current Medication? Ordering Clinician Indication Dosage Frequency Signature (SIG) Comments Components Source mirtazapine (Remeron) 15 MG tablet mirtazapine (Remeron) 15 MG tablet 04-18 00:00: 00 Yes 15mg TAKE ONE (1) TABLET(S) BY MOUTH DAILY AT BEDTIME. Layton Garcia [facility] donepezil (Aricept) 5 MG tablet donepezil (Aricept) 5 MG tablet 2022-09 00:00: 00 Yes See Instructio ns, TAKE ONE (1) TABLET(S) BY MOUTH DAILY., # 30 ea, 3 Refill(s), Pharmacy: [facility] [id number], 162.56, cm, 06/14/23 9:48:00 CDT, Height, 61.023, kg, 06/14/23 9:48:00 CDT, Weight Layton Garcia [facility] memantine (Namenda) 5 MG tablet memantine (Namenda) 5 MG tablet 2022-09 00:00: 00 Yes See Instructio ns, TAKE ONE (1) TABLET(S) BY MOUTH TWICE A DAY., # 60 ea, 3 Refill(s), Pharmacy: [id number], 162.56, cm, 06/14/23 9:48:00 CDT, Height, 61.023, kg, 06/14/23 9:48:00 CDT, Weight Darlinval jamar Villaseñor omeprazole (PriLOSEC) [address] capsule omeprazole (PriLOSEC) [address] capsule 02-08 00:00: 00 Yes TAKE ONE (1) CAPSULE(S) BY MOUTH DAILY NEEDED. Darlinval jamar Joseveronica Villaseñor No known medications 09-18 09:05: 08 No No known medication s [facility] gadoteridol (PROHANCE-1 5 mL) injection 0.2 mL/kg 2019-09 21:45: 00 08-12 22:15 :00 No .2mL/kg 0.2 mL/kg, Intravenou s, ONCE, 1 dose, Leni 08/12/20 at 1545, Routine [facility] Vital Signs Vital Name Observation Time Observation Value Comments S ource Heart rate 2022-09-18 16:44:00 62 /min [facility] Respiratory rate 2022-09-18 16:44:00 20 /min [facility] Oxygen saturation in Arterial blood by Pulse oximetry 2022-09-18 16:44:00 99 /min [facility] Systolic blood pressure 2022-09-18 16:00:18 153 mm[Hg] [facility] Diastolic blood pressure 2022-09-18 16:00:18 86 mm[Hg] [facility] Body temperature 2022-09-18 15:03:00 36.89 Keesha [facility] Body height 2022-09-18 15:03:00 160 cm [facility] Body weight 2022-09-18 15:03:00 53.524 kg [facility] BMI 2022-09-18 15:03:00 20.90 kg/m2 [facility] Procedures Procedure Date / Time Performed Performing Clinicia n Source CT TRAUMA HEAD WO CONTRAST 2022-09-18 15:55:32 Niecy Ball [facility] CT TRAUMA CERVICAL SPINE WO CONTRAST 2022-09-18 15:55:32 Niecy Ball [facility] XR SHOULDER <2 VW LEFT 2022-09-18 15:40:40 Ashley Ball [facility] NOTICE OF PRIVACY PRACTICES 2022-09-18 14:59:10 Doctor Unassigned, [employer] [facility] CONSENT/REFUSAL FOR DIAGNOSIS AND TREATMENT 2022-09-18 14:58:45 Doctor Unassigned, [employer] [facility] MR ABDOMEN W WO CONTRAST MRCP 2020-08-12 22:16:07 Requisition, Paper [facility] NOTICE OF PRIVACY PRACTICES 2020-08-12 21:10:37 Doctor Unassigned, [employer] [facility] CONSENT/REFUSAL FOR DIAGNOSIS AND TREATMENT 2020-08-12 21:10:07 Doctor Unassigned, [employer] [facility] ASSIGNMENT OF BENEFITS 2020-08-12 21:09:46 Docto r Unassigned, [employer] [facility] Encounters Start Date/Time End Date/Time Encounter Type Admission Type Attending [facility] Care Department Encounter ID Source 2024-04-17 00:00:00 2024-04-18 10:18:36 Seamus Patel [id number] Layton Garcia [facility] 2023-07-03 00:00:00 2023-07-03 00:00:00 Outpatient [email or web address] diyala_S PRIV PRIV [id number] [facility] 2023-07-02 00:00:00 2023-07-02 00:00:00 Outpatient [email or web address] diyala_S PRIV PRIV [id number] [facility] 2022-09-18 09:05:00 2022-09-18 10:46:00 Emergency X NIECY [facility] ERT [id number] [facility] 2022-09-18 09:05:00 2022-09-18 10:46:00 Emergency Niecy Ball [facility] [id number] [facility] 2020-08-12 15:11:31 2020-08-12 23:59:00 Outpatient R RADIOLOGY [facility] [id number] [facility] 2020-08-12 15:00:00 2020-08-12 23:59:00 Hospital Encounter Radiology [facility] [id number] 2020-08-12 15:00:00 2020-08-12 23:59:00 Hospital Encounter Radiology [facility] [id number] [facility] Results Test Description Test Time [...] without and with contrast including MRCP studies. Camb, Radiant Results Inft User - 08/12/2020 4:29 [...] without and with contrast including [facility]CP studies. [facility] [id number] 09:33:00* Test Item Value Reference Range Interpretation [...] [facility] Notes Date/Time Note [id number] 10:18:46* [id number] 10:18:31 Medication filled, please call patient and have them schedule a follow up. Adeel [place]
[2024-07-16] MEDS ORDERED: KETOROLAC 30 MG/ML INJ ONE (14:23)
--- NOTE | 2024-07-16 14:23 | ER ---
Nurse's Notes [facility] Name: Milan Weir Age: 84 yrs Sex: Female : 1940 Arrival Date: 07/16/2024 Time: 13:59 Bed IW3 Private MD: Diagnosis: Other mucopurulent conjunctivitis, bilateral Presentation: 07/16 14:12 Chief complaint: Patient states: woke up with left eye red and weeping. Coronavirus ko1 screen: At this time, the client does not indicate any symptoms associated with coronavirus-19. Ebola Screen: No symptoms or risks identified at this time. Initial Sepsis Screen: Does the patient meet any 2 criteria? No. Patient's initial sepsis screen is negative. Does the patient have a suspected source of infection? No. Patient's initial sepsis screen is negative. Risk Assessment: Do you want to hurt yourself or someone else? Patient reports no desire to harm self or others. Onset of symptoms was July 16, 2024. 14:12 Method Of Arrival: Ambulatory ko1 14:12 Acuity: JARRETT 4 ko1 Triage Assessment: 14:15 General: Appears in no apparent distress. Behavior is calm, cooperative, appropriate ko1 for age. Pain: Complains of pain in left eye. Historical: - Allergies: 14:15 Codeine; ko1 14:15 tramadol; ko1 14:15 Tylenol-Codeine; ko1 - PMHx: 14:15 Alzheimers; COPD; HARD OF HEARING; Hernia; Pancreatitis; ko1 - PSHx: 14:15 Adenoid excision; Appendectomy; breast implants; Cholecystectomy; double masectomy; ko1 stomach surgery to prevent vomiting; Tonsillectomy; Total abdominal hysterectomy; - Immunization history:: Adult Immunizations up to date. - Infectious Disease History:: Denies. - Social history:: Smoking status: Patient/guardian denies using tobacco, but has a distant history of tobacco abuse. Screenin:32 [facility] ED Fall Risk Assessment (Adult) History of falling in the last 3 months, ko1 including since admission No falls in past 3 months (0 pts) Confusion or Disorientation No (0 pts) Intoxicated or Sedated No (0 pts) Impaired Gait No (0 pts) Mobility Assist Device Used No (0 pt) Altered Elimination No (0 pt) Score/Fall Risk Level 0 - 2 = Low Risk Oriented to surroundings, Maintained a safe environment, Educated pt \T\ family on fall prevention, incl call for assistance when getting out of bed, Assessed \T\ reinforced patient's understanding of fall precautions, Hourly rounding (assess needs \T\ fall precautionary measures) done. Abuse screen: Denies threats or abuse. Denies injuries from another. Nutritional screening: No deficits noted. Tuberculosis screening: No symptoms or risk factors identified. Assessment: 14:32 EENT: Eyes are tearing on left eye with exudate noted from left eye. ko1 Vital Signs: 14:12 BP 158 / 76; Pulse 66; Resp 16; Temp 98.1; Pulse Ox 99% ; ko1 14:32 BP 146 / 78; Pulse 60; Resp 19; Pulse Ox 99% ; ko1 ED Course: 14:07 Patient arrived in ED. mg5 14:11 Yogesh Méndez MD is Attending Physician. ec2 14:15 Triage completed. ko1 14:15 Arm band placed on right wrist. Patient placed in waiting room, Patient notified of ko1 wait time. 14:25 Kayla Hart, SANDY is Primary Nurse. ko1 14:32 Patient has correct armband on for positive identification. Allergy band placed. ko1 Provided Education on: meds. 14:32 No provider procedures requiring assistance completed. Patient did not have IV access ko1 during this emergency room visit. Administered Medications: 14:25 Drug: Ketorolac IM 15 mg IM once Route: IM; Site: right deltoid; ko1 14:39 Follow up: Response: No adverse reaction; Medication administered at discharge. ko1 Medication: 14:32 VIS not applicable for this client. ko1 Outcome: 14:23 Discharge ordered by . ec2 14:39 Discharged to home ambulatory, ko1 14:39 Condition: stable 14:39 Discharge instructions given to patient, Instructed on discharge instructions, follow up and referral plans. medication usage, Demonstrated understanding of instructions, follow-up care, medications, Prescriptions given X 1, 14:40 Patient left the ED. ko1 Signatures: Kayla Hart, SANDY RN ko1 Diana Cox mg5 Yogesh Méndez MD MD ec2
--- NOTE | 2024-07-16 14:24 | EDPHYS ---
Physician Documentation [facility] Name: Milan Weir Age: 84 yrs Sex: Female : 1940 Arrival Date: 07/16/2024 Time: 13:59 Bed IW3 Private MD: ED Physician Yogesh Méndez HPI: 07/16 14:25 This 84 yrs old Female presents to ER via Ambulatory with complaints of Eye ec2 Problem. 14:25 Patient arrives today for eye discomfort for the bilateral eyes along with drainage ec2 from the bilateral eyes. No fevers or chills, no nausea or vomiting. Does not wear contact lenses. No known chemical irritants.. Historical: - Allergies: 14:15 Codeine; ko1 14:15 tramadol; ko1 14:15 Tylenol-Codeine; ko1 - PMHx: 14:15 Alzheimers; COPD; HARD OF HEARING; Hernia; Pancreatitis; ko1 - PSHx: 14:15 Adenoid excision; Appendectomy; breast implants; Cholecystectomy; double masectomy; ko1 stomach surgery to prevent vomiting; Tonsillectomy; Total abdominal hysterectomy; - Immunization history:: Adult Immunizations up to date. - Infectious Disease History:: Denies. - Social history:: Smoking status: Patient/guardian denies using tobacco, but has a distant history of tobacco abuse. ROS: 14:25 Constitutional: as per hpi ec2 Exam: 14:25 Constitutional: GEN: NAD Head: atraumatic Eyes: EOMI, no pain w/ ROM, conjunctival ec2 injection noted, chemosis noted Ears: External ears are normal. CV: regular rate LUNGS: no respiratory distress ABD: non-distended SKIN: no evidence of rashes MSK: no evidence of trauma Vital Signs: 14:12 BP 158 / 76; Pulse 66; Resp 16; Temp 98.1; Pulse Ox 99% ; ko1 14:32 BP 146 / 78; Pulse 60; Resp 19; Pulse Ox 99% ; ko1 MDM: 14:23 Medical Screening Exam initiated ec2 14:28 Data reviewed: vital signs, nurses notes. ED course: Patient arrives today d/t concern ec2 for bilateral eye irritation w/ conjunctivitis on exam. Considered orbital cellulitis as well. Pt d/c to home, return precautions given, instructed on ophthalmic ointment. . Administered Medications: 14:25 Drug: Ketorolac IM 15 mg IM once Route: IM; Site: right deltoid; ko1 14:39 Follow up: Response: No adverse reaction; Medication administered at discharge. ko1 Disposition Summary: 07/16/24 14:23 Discharge Ordered Notes: Location: Home ec2 Condition: Stable ec2 Diagnosis - Other mucopurulent conjunctivitis, bilateral ec2 Followup: ec2 - With: Private Physician - When: - Reason: Re-evaluation by your physician Discharge Instructions: - Discharge Summary Sheet ec2 - Bacterial Conjunctivitis, Adult, [id number] ec2 Forms: - Medication Reconciliation Form ec2 - Antibiotic Education ec2 - Prescription Opioid Use ec2 - Patient Portal Instructions ec2 - Leadership Thank You Letter ec2 Prescriptions: - Erythromycin 5 mg/gram (0.5 %) Ophthalmic ointment - apply 1 centimeter OPHTHALMIC route 2-3 times daily for 7 days; 3.5 gram tube; ec2 Refills: 0, Product Selection Permitted Signatures: Kayla Hart RN RN ko1 Yogesh Méndez MD MD ec2
[2024-07-16 15:07] VITALS: TEMP 98.1; O2SAT 99
[2024-07-16 15:08] VITALS: BP 146/78
== END 2024-07-16 14:40 | disposition home or self-care (01) ==
LOC: ER 13:59
DX: H10.023 Other mucopurulent conjunctivitis, bilateral (principal); G30.9 Alzheimer's disease, unspecified; F02.80 Dementia in other diseases classified elsewhere, unspecified severity, without behavioral disturbance, psychotic disturbance, mood disturbance, and anxiety

== ENCOUNTER 2024-07-28 15:12 | Emergency (ER) | payer OTHER, BC ==
--- OUTSIDE RECORDS SUMMARY | 2024-07-28 15:15 | XMS REPORT | Continuity of Care Document ---
Author Name Unknown Address [address] [facility] [address] [place] [address] [facility] thconnect Address [address] [facility] [place] [address] Care Team Providers Care Credit Administrator Name Role Phone PCP, PATIENT DOES NOT HAVE A Primary Care Physic padminitristin Castro MD, Seamus Pyle Attending Clinician [phone] [email or web address] Attending Clinician UnavailNIECY Barber Attending Clinician Unavailab Niecy Collazo DO Attending Clinician [phone] RADIOLOGY Attending Clinician Unavailable Radiology Attending Clinician Unavailable MIKHAIL HURTADO Attending Clinician Unavailab sil [email or web address] Admitting Clinician UnavailNIECY Barber Admitting Clinician Unavailab MEKA Ricks Admitting Clinician Unavailable MIKHAIL HURTADO Admitting Clinician Unavailab le Payers Payer Name Policy Type Policy Number Effective Date Expirati on Date Source MEDICARE PART A \T\ B [id number] 2004 00:00:00 [employer] TRADITIONAL [id number] 2017 00:00:00 Problems Condition Name Condition Details Condition Category Status Onset Date Resolution Date Last Treatment Date Treating Clinician Comments Source No known active problems No known active problems Disease [facility] Allergies, Adverse Reactions, Alerts Allergy Name Allergy Type Status Severity Reaction(s) Onset Date Inactive Date Treating Clinician Comments Source CODEINE DRUG INGREDI Active N/V 09-18 00:00: 00 [facility] Codeine Propensi ty to adverse reaction s Active Nausea and/or Vomiting 09-18 00:00: 00 [facility] NO KNOWN ALLERGIE S Drug Class Active [facility] Social History Social Habit Start Date Stop Date Quantity Comments Source Gender identity 2023-11-25 02:02:51 Identifies as female gender (finding) [facility] History of tobacco use Current smoker [facility] Sexual orientation [facility] History of Social function 2023-12-11 00:00:00 2023-12-11 00:00:00 [facility] Exposure to SARS-CoV-2 (event) 2022-09-08 00:00:00 2022-09-18 09:01:00 Not sure [facility] Sex Assigned At 1940 00:00:00 1940 00:00:00 [facility] Smoking Status Start Date Stop Date Source Ex-smoker [facility] Tobacco smoking consumption unknown [facility] Medications Ordered Medication Name Filled Medication Name Start Date Stop Date Current Medication? Ordering Clinician Indication Dosage Frequency Signature (SIG) Comments Components Source mirtazapine (Remeron) 15 MG tablet mirtazapine (Remeron) 15 MG tablet 04-18 00:00: 00 Yes 15mg TAKE ONE (1) TABLET(S) BY MOUTH DAILY AT BEDTIME. Layton Garcia [facility] donepezil (Aricept) 5 MG tablet donepezil (Aricept) 5 MG tablet 2022-09 00:00: 00 Yes See Instructio ns, TAKE ONE (1) TABLET(S) BY MOUTH DAILY., # 30 ea, 3 Refill(s), Pharmacy: [id number], 162.56, cm, 06/14/23 9:48:00 CDT, Height, 61.023, kg, 06/14/23 9:48:00 CDT, Weight Layton roldan Jose [facility] memantine (Namenda) 5 MG tablet memantine (Namenda) 5 MG tablet 2022-09 00:00: 00 Yes See Instructdelicia hauser, TAKE ONE (1) TABLET(S) BY MOUTH TWICE A DAY., # 60 ea, 3 Refill(s), Pharmacy: [id number], 162.56, cm, 06/14/23 9:48:00 CDT, Height, 61.023, kg, 06/14/23 9:48:00 CDT, Weight Layton jamar Joseveronica Villaseñor omeprazole (PriLOSEC) [address] capsule omeprazole (PriLOSEC) [address] capsule 02-08 00:00: 00 Yes TAKE ONE (1) CAPSULE(S) BY MOUTH DAILY NEEDED. Darlinval jamar Newportveronica Villaseñor No known medications 09-18 09:05: 08 No No known medication s [facility] gadoteridol (PROHANCE-1 5 mL) injection 0.2 mL/kg 2019-09 21:45: 00 08-12 22:15 :00 No .2mL/kg 0.2 mL/kg, Intravenou s, ONCE, 1 dose, Leni 08/12/20 at 1545, Routine [facility] Vital Signs Vital Name Observation Time Observation Value Comments S ource Heart rate 2022-09-18 16:44:00 62 /min [facility] Respiratory rate 2022-09-18 16:44:00 20 /min [facility] Oxygen saturation in Arterial blood by Pulse oximetry 2022-09-18 16:44:00 99 /min [facility] Systolic blood pressure 2022-09-18 16:00:18 153 mm[Hg] [facility] Diastolic blood pressure 2022-09-18 16:00:18 86 mm[Hg] [facility] Body temperature 2022-09-18 15:03:00 36.89 Keesha [facility] Body height 2022-09-18 15:03:00 160 cm [facility] Body weight 2022-09-18 15:03:00 53.524 kg [facility] BMI 2022-09-18 15:03:00 20.90 kg/m2 [facility] Procedures Procedure Date / Time Performed Performing Clinicia n Source CT TRAUMA HEAD WO CONTRAST 2022-09-18 15:55:32 Niecy Ball [facility] CT TRAUMA CERVICAL SPINE WO CONTRAST 2022-09-18 15:55:32 Niecy Ball [facility] XR SHOULDER <2 VW LEFT 2022-09-18 15:40:40 Ashley Ball [facility] NOTICE OF PRIVACY PRACTICES 2022-09-18 14:59:10 Doctor Unassigned, [place] [facility] CONSENT/REFUSAL FOR DIAGNOSIS AND TREATMENT 2022-09-18 14:58:45 Doctor Unassigned, [place] [facility] MR ABDOMEN W WO CONTRAST MRCP 2020-08-12 22:16:07 Requisition, Paper [facility] NOTICE OF PRIVACY PRACTICES 2020-08-12 21:10:37 Doctor Unassigned, [place] [facility] CONSENT/REFUSAL FOR DIAGNOSIS AND TREATMENT 2020-08-12 21:10:07 Doctor Unassigned, [place] [facility] ASSIGNMENT OF BENEFITS 2020-08-12 21:09:46 Docto r Unassigned, [place] [facility] Encounters Start Date/Time End Date/Time Encounter Type Admission Type Attending [facility] Care Department Encounter ID Source 2024-04-17 00:00:00 2024-04-18 10:18:36 Seamus Patel [id number] Layton Garcia [facility] 2023-07-03 00:00:00 2023-07-03 00:00:00 Outpatient [email or web address] [email or web address]_S PRIV PRIV [id number] [facility] 2023-07-02 00:00:00 2023-07-02 00:00:00 Outpatient [email or web address] [email or web address]_S PRIV PRIV [id number] [facility] 2022-09-18 09:05:00 2022-09-18 10:46:00 Emergency X NIECY BALL [facility] ERT [id number] [facility] 2022-09-18 09:05:00 2022-09-18 10:46:00 Emergency Niecy Ball [facility] [id number] [facility] 2020-08-12 15:11:31 2020-08-12 23:59:00 Outpatient R RADIOLOGY [facility] [id number] [facility] 2020-08-12 15:00:00 2020-08-12 23:59:00 Hospital Encounter Radiology [facility] [id number] 2020-08-12 15:00:00 2020-08-12 23:59:00 Hospital Encounter Radiology [facility] [id number] [facility] Results Test Description Test Time [...] without and with contrast including MRCP studies. [facility], Radiant Results Inft User - [...] without and with contrast including MRCP studies. [facility] [id number] 09:33:00* Test Item Value Reference Range Interpretation [...] assessment and management of chronic kidney failure. [facility] Notes Date/Time Note Provider Source [id number]:18[facility]46[id number] 10:18:31 Medication filled, please call patient and have them schedule a follow up. Adeel Newport
--- NOTE | 2024-07-28 15:41 | EDPHYS ---
Physician Documentation [facility] Name: Milan Weir Age: 84 yrs Sex: Female : 1940 Arrival Date: 07/28/2024 Time: 15:12 Bed IW4 Private MD: ED Physician Yogesh Méndez HPI: 07/28 15:39 This 84 yrs old Female presents to ER via Ambulatory with complaints of ec2 Drainage From Eye - BL. 15:39 Patient arrives today for evaluation of bilateral eye drainage. Patient was previously ec2 seen here, treated with erythromycin ointment and states that her symptoms had not improved. Patient reports no fevers or chills, no nausea or vomiting.. Historical: - Allergies: 15:38 Codeine; tm6 15:38 tramadol; tm6 15:38 Tylenol-Codeine; tm6 - PMHx: 15:38 Alzheimers; COPD; HARD OF HEARING; Hernia; Pancreatitis; tm6 - PSHx: 15:38 Adenoid excision; Appendectomy; breast implants; double masectomy; Cholecystectomy; tm6 stomach surgery to prevent vomiting; Tonsillectomy; Total abdominal hysterectomy; - Immunization history:: Client reports receiving the 2nd dose of the Covid vaccine. - Infectious Disease History:: Denies. - Social history:: Smoking status: Patient denies any tobacco usage or history of. ROS: 15:39 Constitutional: as per hpi ec2 Exam: 15:39 Constitutional: GEN: NAD Head: atraumatic Eyes: EOMI, globes intact without ocular ec2 pain, conjunctival injection of bilateral eyes with purulent drainage from the bilateral eyes. Ears: External ears are normal. CV: regular rate LUNGS: no respiratory distress ABD: non-distended SKIN: no evidence of rashes MSK: no evidence of trauma Vital Signs: 15:39 Pulse 75; Resp 19; Temp 98(O); Pulse Ox 98% on R/A; Pain 10/10; tm6 15:40 BP 153 / 82; MAP 102 mmHg; tm6 15:39 Pain Scale: Adult tm6 MDM: 15:40 Data reviewed: vital signs, nurses notes. ED course: Patient arrives today with ec2 persistent conjunctivitis. Examination shows eye findings as above. Will start patient on oral antibiotics and different topical antibiotics. Will discharge home. Considered other processes such as orbital cellulitis, hyphema, abscess. 15:41 Medical Screening Exam initiated ec2 Administered Medications: 15:52 Drug: Ketorolac IM 30 mg IM once Route: IM; Site: right deltoid; tm6 15:52 Follow up: Response: Medication administered at discharge. tm6 15:52 Drug: Cephalexin PO 500 mg PO once Route: PO; tm6 15:52 Follow up: Response: Medication Administered at Departure tm6 Disposition Summary: 07/28/24 15:41 Discharge Ordered Notes: Location: Home ec2 Condition: Stable ec2 Diagnosis - Other conjunctivitis ec2 Followup: ec2 - With: Private Physician - When: - Reason: Re-evaluation by your physician Discharge Instructions: - Discharge Summary Sheet ec2 - Bacterial Conjunctivitis, Adult, [id number] ec2 Forms: - Medication Reconciliation Form ec2 - Antibiotic Education ec2 - Prescription Opioid Use ec2 - Patient Portal Instructions ec2 - Leadership Thank You Letter ec2 Prescriptions: - Cephalexin 500 mg Oral Capsule - take 1 capsule ORAL route every 12 hours for 10 days; 20 capsule; Refills: 0, ec2 Product Selection Permitted - Doxycycline Hyclate 100 mg Oral Tablet - take 1 tablet ORAL route every 12 hours; 20 tablet; Refills: 0, Product ec2 Selection Permitted Signatures: Yogesh Méndez MD MD ec2 Latonia Rushing RN RN tm6
--- NOTE | 2024-07-28 15:41 | ER ---
Nurse's Notes [facility] Name: Milan Weir Age: 84 yrs Sex: Female : 1940 Arrival Date: 07/28/2024 Time: 15:12 Bed IW4 Private MD: Diagnosis: Other conjunctivitis Presentation: 07/28 15:37 Chief complaint: Patient states: been having drainage from eyes, sick to stomach. tm6 Coronavirus screen: Client denies travel out of the [place] in the last 14 days. Ebola Screen: Patient negative for fever greater than or equal to 101.5 degrees Fahrenheit, and additional compatible Ebola Virus Disease symptoms Patient denies exposure to infectious person. Patient denies travel to an Ebola-affected area in the 21 days before illness onset. No symptoms or risks identified at this time. Initial Sepsis Screen:. Risk Assessment: Do you want to hurt yourself or someone else? Patient reports no desire to harm self or others. 15:37 Method Of Arrival: Ambulatory tm6 15:37 Acuity: JARRETT 4 tm6 15:53 Initial Sepsis Screen: Does the patient meet any 2 criteria? No. Patient's initial tm6 sepsis screen is negative. Does the patient have a suspected source of infection? No. Patient's initial sepsis screen is negative. Onset of symptoms was July 14, 2024. Triage Assessment: 15:39 General: Appears uncomfortable, Behavior is cooperative. Pain: Complains of pain in tm6 right eye and left eye Pain currently is 10 out of 10 on a pain scale. Pain began two weeks ago. 15:39 EENT: Reports drainage from both eyes. Neuro: Level of Consciousness is awake, alert, tm6 obeys commands, Oriented to person, place, time, situation. Cardiovascular: Patient's skin is warm and dry. Respiratory: Airway is patent Respiratory effort is even, unlabored, Respiratory pattern is regular, symmetrical. GI: Abdomen is flat, non-distended, Reports nausea. : No signs and/or symptoms were reported regarding the genitourinary system. Derm: No signs and/or symptoms reported regarding the dermatologic system. Musculoskeletal: No signs and/or symptoms reported regarding the musculoskeletal system. Historical: - Allergies: 15:38 Codeine; tm6 15:38 tramadol; tm6 15:38 Tylenol-Codeine; tm6 - PMHx: 15:38 Alzheimers; COPD; HARD OF HEARING; Hernia; Pancreatitis; tm6 - PSHx: 15:38 Adenoid excision; Appendectomy; breast implants; double masectomy; Cholecystectomy; tm6 stomach surgery to prevent vomiting; Tonsillectomy; Total abdominal hysterectomy; - Immunization history:: Client reports receiving the 2nd dose of the Covid vaccine. - Infectious Disease History:: Denies. - Social history:: Smoking status: Patient denies any tobacco usage or history of. Screenin:52 [facility] ED Fall Risk Assessment (Adult) History of falling in the last 3 months, tm6 including since admission No falls in past 3 months (0 pts) Confusion or Disorientation No (0 pts) Intoxicated or Sedated No (0 pts) Impaired Gait No (0 pts) Mobility Assist Device Used No (0 pt) Altered Elimination No (0 pt) Score/Fall Risk Level 0 - 2 = Low Risk Oriented to surroundings, Maintained a safe environment, Educated pt \T\ family on fall prevention, incl call for assistance when getting out of bed. Abuse screen: Denies threats or abuse. Denies injuries from another. Nutritional screening: No deficits noted. Tuberculosis screening: No symptoms or risk factors identified. Assessment: 15:52 Reassessment: see triage assessment. tm6 Vital Signs: 15:39 Pulse 75; Resp 19; Temp 98(O); Pulse Ox 98% on R/A; Pain 10/10; tm6 15:40 BP 153 / 82; MAP 102 mmHg; tm6 15:39 Pain Scale: Adult tm6 ED Course: 15:14 Patient arrived in ED. ra3 15:19 Yogesh Méndez MD is Attending Physician. ec2 15:37 Triage completed. tm6 15:39 Arm band placed on right wrist. tm6 15:52 Patient has correct armband on for positive identification. Provided Education on: use tm6 of prescriptions . 15:52 No provider procedures requiring assistance completed. Patient did not have IV access tm6 during this emergency room visit. Administered Medications: 15:52 Drug: Ketorolac IM 30 mg IM once Route: IM; Site: right deltoid; tm6 15:52 Follow up: Response: Medication administered at discharge. tm6 15:52 Drug: Cephalexin PO 500 mg PO once Route: PO; tm6 15:52 Follow up: Response: Medication Administered at Departure tm6 Medication: 15:52 VIS not applicable for this client. tm6 Outcome: 15:41 Discharge ordered by . ec2 15:52 Discharged to home ambulatory, tm6 15:52 Condition: stable 15:52 Discharge instructions given to patient, Instructed on discharge instructions, follow up and referral plans. medication usage, Demonstrated understanding of instructions, follow-up care, medications, Prescriptions given X 2, 15:53 Patient left the ED. tm6 Signatures: Yogesh Méndez MD MD ec2 Latonia Rushing RN RN tm6 Sheridan Astorga 3
[2024-07-28] MEDS ORDERED: KETOROLAC 30 MG/ML INJ ONE (15:44)
[2024-07-28] MEDS ORDERED: CEPHALEXIN 250 MG CAP ONE (15:44)
[2024-07-28 17:36] VITALS: TEMP 98; O2SAT 98
[2024-07-28 17:37] VITALS: BP 153/82
== END 2024-07-28 15:53 | disposition home or self-care (01) ==
LOC: ER 15:12
DX: H10.89 Other conjunctivitis (principal); J44.9 Chronic obstructive pulmonary disease, unspecified; G30.9 Alzheimer's disease, unspecified; F02.80 Dementia in other diseases classified elsewhere, unspecified severity, without behavioral disturbance, psychotic disturbance, mood disturbance, and anxiety; Z88.5 Allergy status to narcotic agent
CPT/HCPCS: 96372; 99284

== ENCOUNTER 2024-08-15 08:55 | Emergency (ER) | payer OTHER, BC ==
--- OUTSIDE RECORDS SUMMARY | 2024-08-15 08:59 | XMS REPORT | Continuity of Care Document ---
Author Name Unknown Address [address] [facility] [address] [place] [address] [facility] Address [address] [facility] [address] [place] [address] Care Team Providers Care Plastic And Reconstructive Surgeon Name Role Phone PCP, PATIENT DOES NOT HAVE A Primary Care Physic padmini Castro MD, Seamus Pyle Attending Clinician [phone] [email or web address] Attending Clinician UnavailNIECY Barber Attending Clinician Unavailab Niecy Collazo DO Attending Clinician RADIOLOGY Attending Clinician Unavailable Radiology Attending Clinician Unavailable MIKHAIL HURTADO Attending Clinician Unavailab sil [email or web address]_S Admitting Clinician UnavailNIECY Barber Admitting Clinician Unavailab MEKA Ricks Admitting Clinician Unavailable MIKHAIL HURTADO Admitting Clinician Unavailab le Payers Payer Name Policy Type Policy Number Effective Date Expirati on Date Source MEDICARE PART A \T\ B [id number] 2004 00:00:00 [employer] TR[employer]ITIONAL [id number] 2017 00:00:00 Problems Condition Name Condition Details Condition Category Status Onset Date Resolution Date Last Treatment Date Treating Clinician Comments Source No known active problems No known active problems Disease [facility] Allergies, Adverse Reactions, Alerts Allergy Name Allergy Type Status Severity Reaction(s) Onset Date Inactive Date Treating Clinician Comments Source CODEINE DRUG INGREDI Active N/V 09-18 00:00: 00 [facility] Codeine Propensi ty to adverse reaction s Active Nausea and/or Vomiting 09-18 00:00: 00 [facility] NO KNOWN ALLERGIE S Drug Class Active [facility] Social History Social Habit Start Date Stop Date Quantity Comments Source Gender identity 2023-11-25 02:02:51 Identifies as female gender (finding) [facility] History of tobacco use Current smoker [facility] Sexual orientation [facility] History of Social function 2023-12-11 00:00:00 2023-12-11 00:00:00 [facility] Exposure to SARS-CoV-2 (event) 2022-09-08 00:00:00 2022-09-18 09:01:00 Not sure [facility] Sex Assigned At 1940 00:00:00 1940 00:00:00 [facility] Smoking Status Start Date Stop Date Source Ex-smoker [facility] Tobacco smoking consumption unknown [facility] Medications Ordered Medication Name Filled Medication Name Start Date Stop Date Current Medication? Ordering Clinician Indication Dosage Frequency Signature (SIG) Comments Components Source mirtazapine (Remeron) 15 MG tablet mirtazapine (Remeron) 15 MG tablet 04-18 00:00: 00 Yes 15mg TAKE ONE (1) TABLET(S) BY MOUTH DAILY AT BEDTIME. Layton roldan [place] [facility] donepezil (Aricept) 5 MG tablet donepezil (Aricept) 5 MG tablet 2022-09 00:00: 00 Yes See Instructio ns, TAKE ONE (1) TABLET(S) BY MOUTH DAILY., # 30 ea, 3 Refill(s), Pharmacy: [id number], 162.56, cm, 06/14/23 9:48:00 CDT, Height, 61.023, kg, 06/14/23 9:48:00 CDT, Weight Layton roldan Jose [facility] memantine (Namenda) 5 MG tablet memantine (Namenda) 5 MG tablet 2022-09 00:00: 00 Yes See Rosita hauser, TAKE ONE (1) TABLET(S) BY MOUTH TWICE A DAY., # 60 ea, 3 Refill(s), Pharmacy: [id number], 162.56, cm, 06/14/23 9:48:00 CDT, Height, 61.023, kg, 06/14/23 9:48:00 CDT, Weight Layton Shankarveronica Villaseñor omeprazole (PriLOSEC) [address] capsule omeprazole (PriLOSEC) [address] capsule 02-08 00:00: 00 Yes TAKE ONE (1) CAPSULE(S) BY MOUTH DAILY NEEDED. Layton Shankarveronica Villaseñor No known medications 09-18 09:05: 08 No No known medication s [facility] gadoteridol (PROHANCE-1 5 mL) injection 0.2 mL/kg 2019-09 21:45: 00 08-12 22:15 :00 No .2mL/kg 0.2 mL/kg, Intravenou s, ONCE, 1 dose, Leni 08/12/20 at 1545, Routine [facility] Vital Signs Vital Name Observation Time Observation Value Comments S ource Heart rate 2022-09-18 16:44:00 62 /min [facility] Respiratory rate 2022-09-18 16:44:00 20 /min [facility] Oxygen saturation in Arterial blood by Pulse oximetry 2022-09-18 16:44:00 99 /min [facility] Systolic blood pressure 2022-09-18 16:00:18 153 mm[Hg] [facility] Diastolic blood pressure 2022-09-18 16:00:18 86 mm[Hg] [facility] Body temperature 2022-09-18 15:03:00 36.89 Keesha [facility] Body height 2022-09-18 15:03:00 160 cm [facility] Body weight 2022-09-18 15:03:00 53.524 kg [facility] BMI 2022-09-18 15:03:00 20.90 kg/m2 [facility] Procedures Procedure Date / Time Performed Performing Clinicia n Source CT TRAUMA HEAD WO CONTRAST 2022-09-18 15:55:32 Niecy Ball [facility] CT TRAUMA CERVICAL SPINE WO CONTRAST 2022-09-18 15:55:32 Niecy Ball [facility] XR SHOULDER <2 VW LEFT 2022-09-18 15:40:40 Ashley Ball [facility] NOTICE OF PRIVACY PRACTICES 2022-09-18 14:59:10 Doctor Unassigned, [place] [facility] CONSENT/REFUSAL FOR DIAGNOSIS AND TREATMENT 2022-09-18 14:58:45 Doctor Unassigned, [place] [facility] MR ABDOMEN W WO CONTRAST MRCP 2020-08-12 22:16:07 Requisition, Paper [facility] NOTICE OF PRIVACY PRACTICES 2020-08-12 21:10:37 Doctor Unassigned, [place] [facility] CONSENT/REFUSAL FOR DIAGNOSIS AND TREATMENT 2020-08-12 21:10:07 Doctor Unassigned, [place] [facility] ASSIGNMENT OF BENEFITS 2020-08-12 21:09:46 Docto r Unassigned, [place] [facility] Encounters Start Date/Time End Date/Time Encounter Type Admission Type Attending [facility] Care Department Encounter ID Source 2024-04-17 00:00:00 2024-04-18 10:18:36 Seamus Patel [id number] Layton Garcia [facility] 2023-07-03 00:00:00 2023-07-03 00:00:00 Outpatient [email or web address] diyala_S PRIV PRIV [id number] [facility] 2023-07-02 00:00:00 2023-07-02 00:00:00 Outpatient [email or web address] diyala_S PRIV PRIV [id number] [facility] 2022-09-18 09:05:00 2022-09-18 10:46:00 Emergency X NIECY BALL [facility] ERT [id number] [facility] 2022-09-18 09:05:00 2022-09-18 10:46:00 Emergency Niecy Ball [facility] [id number] [facility] 2020-08-12 15:11:31 2020-08-12 23:59:00 Outpatient R RADIOLOGY [facility] [id number] [facility] 2020-08-12 15:00:00 2020-08-12 23:59:00 Hospital Encounter Radiology [facility] [id number] [facility] 2020-08-12 15:00:00 2020-08-12 23:59:00 Hospital Encounter Radiology [facility] [id number] Results Test Description Test Time Test Comments [...] without and with contrast including MRCP studies. [facility], Radiant Results Inft User - 08/12/2020 [...] without and with contrast including MRCP studies. [facility], [id number] 09:33:00* Test Item Value Reference Range Interpretation [...] assessment and management of chronic kidney failure. [facility]
[2024-08-15] MEDS ORDERED: ERYTHROMYCIN 3.5GM OPTH OINT ONE (09:52)
[2024-08-15] MEDS ORDERED: AZITHROMYCIN 250 MG TAB ONE (09:55)
[2024-08-15] MEDS ORDERED: predniSONE 20 MG TAB ONE (09:55)
--- NOTE | 2024-08-15 10:05 | RAD REPORT ---
Procedure: Chest Pa And Lat (2 Views) HISTORY: Cough COMPARISON: June 2024 FINDINGS: The lungs appear clear of acute infiltrate.. Lungs are moderately hyperaerated. No significant pleural effusion noted. The heart is normal size.. Central venous catheter in place IMPRESSION: COPD without visualization of an acute normality
[2024-08-15 10:40] LABS: SARS-CoV-2 Antigen CONTROL BLUE LINE VIS/BG OK; SARS-CoV-2 Antigen Rapid Res Negative (Negative)
--- NOTE | 2024-08-15 10:41 | ER ---
Nurse's Notes [facility] Name: Milan Weir Age: 84 yrs Sex: Female : 1940 Arrival Date: 08/15/2024 Time: 08:55 Bed 19 Private MD: Diagnosis: Acute upper respiratory infection, unspecified;COPD/ Chronic obstructive pulmonary disease, unspecified;Streptococcal pharyngitis;Streptococcal tonsillitis Presentation: 08/15 09:15 Chief complaint: Patient states: chest congestion and nasal congestion that began aa5 yesterday. Pt states "I just don't feel good". Coronavirus screen: congestion, cough unrelated to allergies. Ebola Screen: Patient denies travel to an Ebola-affected area in the 21 days before illness onset. Initial Sepsis Screen: Does the patient meet any 2 criteria? No. Patient's initial sepsis screen is negative. Does the patient have a suspected source of infection? No. Patient's initial sepsis screen is negative. Risk Assessment: Do you want to hurt yourself or someone else? Patient reports no desire to harm self or others. Onset of symptoms was August 2024. 09:15 Acuity: JARRETT 3 aa5 09:15 Method Of Arrival: Ambulatory aa5 Historical: - Allergies: 09:14 tramadol; aa5 09:14 Codeine; aa5 09:14 Tylenol-Codeine; aa5 - PMHx: 09:14 Alzheimers; COPD; HARD OF HEARING; Hernia; Pancreatitis; aa5 - PSHx: 09:14 Adenoid excision; Appendectomy; breast implants; Cholecystectomy; double masectomy; aa5 stomach surgery to prevent vomiting; Tonsillectomy; Total abdominal hysterectomy; - Immunization history:: Adult Immunizations unknown. - Infectious Disease History:: Denies. - Social history:: Smoking status: Patient denies any tobacco usage or history of. Screenin:38 [facility] ED Fall Risk Assessment (Adult) History of falling in the last 3 months, kc6 including since admission No falls in past 3 months (0 pts) Confusion or Disorientation No (0 pts) Intoxicated or Sedated No (0 pts) Impaired Gait No (0 pts) Mobility Assist Device Used No (0 pt) Altered Elimination No (0 pt) Score/Fall Risk Level 0 - 2 = Low Risk Oriented to surroundings, Maintained a safe environment. Abuse screen: Denies threats or abuse. Denies injuries from another. Nutritional screening: No deficits noted. Tuberculosis screening: No symptoms or risk factors identified. Assessment: 09:39 General: Appears in no apparent distress. comfortable, well groomed, well developed, kc6 Behavior is calm, cooperative, appropriate for age. Pain: Denies pain. Neuro: Level of Consciousness is awake, alert, obeys commands, Oriented to person, place, time, situation, Appropriate for age. Cardiovascular: Capillary refill < 3 seconds. Respiratory: Airway is patent Trachea midline Respiratory effort is even, unlabored, Respiratory pattern is regular, symmetrical. GI: No signs and/or symptoms were reported involving the gastrointestinal system. : No signs and/or symptoms were reported regarding the genitourinary system. EENT: Reports nasal congestion. Derm: No signs and/or symptoms reported regarding the dermatologic system. Skin is intact, is healthy with good turgor, Skin is pink, warm \\T\\ dry. Musculoskeletal: No signs and/or symptoms reported regarding the musculoskeletal system. Circulation, motion, and sensation intact. Capillary refill < 3 seconds, Range of motion: intact in all extremities. 10:50 Reassessment: Patient appears in no apparent distress at this time. No changes from kc6 previously documented assessment. Patient and/or family updated on plan of care and expected duration. Pain level reassessed. Patient is alert, oriented x 3, equal unlabored respirations, skin warm/dry/pink. Vital Signs: 09:15 BP 143 / 91; Pulse 72; Resp 20 S; Temp 98.5(O); Pulse Ox 100% on R/A; aa5 10:50 BP 138 / 89; Pulse 75; Resp 17 S; Pulse Ox 98% on R/A; kc6 ED Course: 08:59 Patient arrived in ED. mr 09:04 Sean Seymour MD is Attending Physician. nargis 09:14 Arm band placed on. aa5 09:15 Triage completed. aa5 09:23 Pamela Aaron, SANDY is Primary Nurse. kc6 09:39 Patient has correct armband on for positive identification. Bed in low position. Call kc6 light in reach. Side rails up X 1. Pulse ox on. NIBP on. Door closed. Noise minimized. Lights dimmed. Pillow given. 09:39 Strep Sent. kc6 09:39 SARS RAPID Sent. kc6 09:39 Flu Sent. kc6 09:39 Patient maintains SpO2 saturation greater than 95% on room air. kc6 09:57 Chest Pa And Lat (2 Views) XRAY In Process Unspecified. EDMS 10:50 No provider procedures requiring assistance completed. Patient did not have IV access kc6 during this emergency room visit. Administered Medications: 10:04 Drug: ERYTHromycin Ophthalmic Ointment 1 application Ophthalmic once; both eyes Route: kc6 Ophthalmic; Site: both eyes; 10:33 Follow up: Response: No adverse reaction kc6 10:04 Drug: AZITHromycin PO 500 mg PO once Route: PO; kc6 10:33 Follow up: Response: No adverse reaction kc6 10:04 Drug: predniSONE PO 40 mg PO once Route: PO; kc6 10:33 Follow up: Response: No adverse reaction kc6 Medication: 10:51 VIS not applicable for this client. kc6 Outcome: 10:41 Discharge ordered by . nargis 10:50 Discharged to home ambulatory, kc6 10:50 Condition: good 10:50 Discharge instructions given to patient, Instructed on discharge instructions, follow up and referral plans. medication usage, Demonstrated understanding of instructions, follow-up care, medications, Prescriptions given X 5 10:51 Patient left the ED. kc6 Signatures: Dispatcher [employer] EDMS Sean Seymour MD MD cha Rivera, Mary, Reg Reg mr CorcoranElena, RN RN aa5 Pamela Aaron RN RN kc6
--- NOTE | 2024-08-15 10:41 | EDPHYS ---
Physician Documentation [facility] Name: Milan Weir Age: 84 yrs Sex: Female : 1940 Arrival Date: 08/15/2024 Time: 08:55 Bed 19 Private MD: ED Physician Sean Seymour HPI: 08/15 10:19 This 84 yrs old Female presents to ER via Ambulatory with complaints of Sinus nargis Congestion. 10:19 The patient or guardian reports cough, described as mild, flu symptoms, arthralgias, nargis low-grade fever, myalgias. Onset: The symptoms/episode began/occurred 3 day(s) ago. Severity of symptoms: At their worst the symptoms were mild, in the emergency department the symptoms are unchanged. Modifying factors: The symptoms are alleviated by nothing, the symptoms are aggravated by nothing. Associated signs and symptoms: Pertinent positives: rhinorrhea, sore throat. The patient has experienced similar episodes in the past, multiple times. Historical: - Allergies: 09:14 tramadol; aa5 09:14 Codeine; aa5 09:14 Tylenol-Codeine; aa5 - PMHx: 09:14 Alzheimers; COPD; HARD OF HEARING; Hernia; Pancreatitis; aa5 - PSHx: 09:14 Adenoid excision; Appendectomy; breast implants; Cholecystectomy; double masectomy; aa5 stomach surgery to prevent vomiting; Tonsillectomy; Total abdominal hysterectomy; - Immunization history:: Adult Immunizations unknown. - Infectious Disease History:: Denies. - Social history:: Smoking status: Patient denies any tobacco usage or history of. ROS: 10:20 Constitutional: Negative for fever, chills, and weight loss, Eyes: Negative for injury, nargis pain, redness, and discharge, ENT: Negative for injury, pain, and discharge, Neck: Negative for injury, pain, and swelling, Cardiovascular: Negative for chest pain, palpitations, and edema, Abdomen/GI: Negative for abdominal pain, nausea, vomiting, diarrhea, and constipation, Back: Negative for injury and pain, : Negative for injury, bleeding, discharge, and swelling, MS/Extremity: Negative for injury and deformity, Skin: Negative for injury, rash, and discoloration, Neuro: Negative for headache, weakness, numbness, tingling, and seizure, Psych: Negative for depression, anxiety, suicide ideation, homicidal ideation, and hallucinations, Allergy/Immunology: Negative for hives, rash, and allergies, Endocrine: Negative for neck swelling, polydipsia, polyuria, polyphagia, and marked weight changes, Hematologic/Lymphatic: Negative for swollen nodes, abnormal bleeding, and unusual bruising, 10:20 Respiratory: Positive for cough, with no reported sputum, Exam: 10:20 Constitutional: This is a well developed, well nourished patient who is awake, alert, nargis and in no acute distress. Head/Face: Normocephalic, atraumatic. ENT: Nares patent. No nasal discharge, no septal abnormalities noted. Tympanic membranes are normal and external auditory canals are clear. Oropharynx with no redness, swelling, or masses, exudates, or evidence of obstruction, uvula midline. Mucous membranes moist. Neck: Trachea midline, no thyromegaly or masses palpated, and no cervical lymphadenopathy. Supple, full range of motion without nuchal rigidity, or vertebral point tenderness. No Meningismus. Chest/axilla: Normal chest wall appearance and motion. Nontender with no deformity. No lesions are appreciated. Cardiovascular: Regular rate and rhythm with a normal S1 and S2. No gallops, murmurs, or rubs. Normal PMI, no JVD. No pulse deficits. Respiratory: Lungs have equal breath sounds bilaterally, clear to auscultation and percussion. No rales, rhonchi or wheezes noted. No increased work of breathing, no retractions or nasal flaring. Abdomen/GI: Soft, non-tender, with normal bowel sounds. No distension or tympany. No guarding or rebound. No evidence of tenderness throughout. Back: No spinal tenderness. No costovertebral tenderness. Full range of motion. Female : Normal external genitalia. Skin: Warm, dry with normal turgor. Normal color with no rashes, no lesions, and no evidence of cellulitis. MS/ Extremity: Pulses equal, no cyanosis. Neurovascular intact. Full, normal range of motion., bilateral aka Neuro: Awake and alert, GCS 15, oriented to person, place, time, and situation. Cranial nerves II-XII grossly intact. Motor strength 5/5 in all extremities. Sensory grossly intact. Cerebellar exam normal. Normal gait. Psych: Awake, alert, with orientation to person, place and time. Behavior, mood, and affect are within normal limits. 10:20 Eyes: Periorbital structures: erythema, that is mild, bilaterally, Vital Signs: 09:15 BP 143 / 91; Pulse 72; Resp 20 S; Temp 98.5(O); Pulse Ox 100% on R/A; aa5 10:50 BP 138 / 89; Pulse 75; Resp 17 S; Pulse Ox 98% on R/A; kc6 MDM: 09:04 Medical Screening Exam initiated [facility] 10:25 Differential diagnosis: obstructed airway, tracheal injury, bronchitis, flu, URI. nargis Antibiotic administration: The patient is discharged and will get outpatient antibiotics, Zithromax. Differential Diagnosis: Obstructed Airway Bronchitis Influenza Upper Respiratory Infection Sinusitis Pharyngitis Otitis Media Viral Syndrome Pneumonia. Data reviewed: vital signs, nurses notes, lab test result(s), Flu: negative radiologic studies, plain films. Consideration of Admission/Observation Escalation of care including admission/observation considered. I considered the following discharge prescriptions or medication management in the emergency department Medications were administered in the Emergency Department. See MAR. Independent interpretation of the following test(s) in the Emergency Department X-Ray: My interpretation is cxr copd. Test considered but Not performed: Labs: no cbc , no cmp met. Care significantly affected by the following chronic conditions: Chronic Obstructive Pulmonary Disease, iroquois, alzheimers, pancreatitiss. Counseling: I had a detailed discussion with the patient and/or guardian regarding the historical points, exam findings, and any diagnostic results supporting the discharge/admit diagnosis, the presence of at least one elevated blood pressure reading (>120/80) during this emergency department visit, lab results, radiology results, the need for outpatient follow up, for definitive care, 08/15 09:06 Order name: Flu; Complete Time: 10:41 [facility] 08/15 09:06 Order name: SARS RAPID; Complete Time: 10:41 [facility] 08/15 09:06 Order name: Strep; Complete Time: 10:41 [facility] 08/15 09:06 Order name: Chest Pa And Lat (2 Views) XRAY; Complete Time: 10:19 [facility] Administered Medications: 10:04 Drug: ERYTHromycin Ophthalmic Ointment 1 application Ophthalmic once; both eyes Route: kc6 Ophthalmic; Site: both eyes; 10:33 Follow up: Response: No adverse reaction kc6 10:04 Drug: AZITHromycin PO 500 mg PO once Route: PO; kc6 10:33 Follow up: Response: No adverse reaction kc6 10:04 Drug: predniSONE PO 40 mg PO once Route: PO; kc6 10:33 Follow up: Response: No adverse reaction kc6 Disposition Summary: 08/15/24 10:41 Discharge Ordered Notes: Location: Home [facility] Problem: new [facility] Symptoms: have improved nargis Condition: Stable nargis Diagnosis - Acute upper respiratory infection, unspecified nargis - COPD/ Chronic obstructive pulmonary disease, unspecified nargis - Streptococcal pharyngitis [facility] - Streptococcal tonsillitis [facility] Followup: [facility] - With: Private Physician - When: 2 - 3 days - Reason: Recheck today's complaints, Continuance of care, Re-evaluation by your physician Discharge Instructions: - Discharge Summary Sheet [facility] - Chronic Bronchitis, Adult [facility] - Chronic Obstructive Pulmonary Disease [facility] - How to Use a Metered Dose Inhaler nargis - Strep Throat, Adult nargis - Upper Respiratory Infection, Adult nargis - Cool Mist Vaporizer nargis - Chronic Obstructive Pulmonary Disease, [id number] nargis - Strep Throat, Adult, [id number] nargis - Upper Respiratory Infection, Adult, [id number] [facility] - Cough, Adult [facility] Forms: - Medication Reconciliation Form [facility] - Antibiotic Education [facility] - Prescription Opioid Use [facility] - Patient Portal Instructions [facility] - Leadership Thank You Letter [facility] Prescriptions: - albuterol sulfate 90 mcg/actuation Inhalation HFA Aerosol Inhaler - inhale 2 puff INHALATION route every 4-6 hours prn sob; 1 unit; Refills: 0, [facility] Product Selection Permitted - Tessalon Perles 100 mg Oral capsule - take 2 capsule ORAL route every 8 hours As needed; 30 capsule; Refills: 0, [facility] Product Selection Permitted - Medrol (Andrea) 4 mg Oral Tablets, Dose Pack - take 1 tablet ORAL route as directed - follow package instructions; 1 packet; [facility] Refills: 0, Product Selection Permitted - Erythromycin 5 mg/gram (0.5 %) Ophthalmic ointment - apply 1 inch ribbon OPHTHALMIC route 4 times per day for 7 days both eyes, nargis periorbital; 3.5 gram tube; Refills: 0, Product Selection Permitted - Zithromax 500 mg Oral tablet - take 1 tablet ORAL route once daily for 5 days begin 08/16/24; 5 tablet; [facility] Refills: 0, Product Selection Permitted Signatures: Dispatcher [employer] Sean Marks MD MD nargis Corcoran, Elena, RN RN aa5 Pamela Aaron RN RN kc6
[2024-08-15 11:02] VITALS: TEMP 98.5
[2024-08-15 11:04] VITALS: BP 138/89; O2SAT 98
== END 2024-08-15 10:51 | disposition home or self-care (01) ==
LOC: ER 08:55
DX: J06.9 Acute upper respiratory infection, unspecified (principal); J44.9 Chronic obstructive pulmonary disease, unspecified; J03.00 Acute streptococcal tonsillitis, unspecified; G30.9 Alzheimer's disease, unspecified; F02.80 Dementia in other diseases classified elsewhere, unspecified severity, without behavioral disturbance, psychotic disturbance, mood disturbance, and anxiety; Z11.52 Encounter for screening for COVID-19
CPT/HCPCS: 36415; 87081; 87804 ×2; 71046; 99284; 87811; J7512

== ENCOUNTER 2024-08-24 10:53 | Emergency (ER) | payer OTHER, BC ==
--- OUTSIDE RECORDS SUMMARY | 2024-08-24 10:55 | XMS REPORT | Continuity of Care Document ---
Author Name Unknown Address [address] [facility] [place] [address] [facility] thconnect Address [address] [place] [address] Care Team Providers Care Slp Name Role Phone PCP, PATIENT DOES NOT HAVE A Primary Care Physic padmini Unavailable Seamus Castro MD Attending Clinician [phone] [email or web address] Attending Clinician UnavailNIECY Barber Attending Clinician Unavailab Niecy Collazo DO Attending Clinician [phone] RADIOLOGY Attending Clinician Unavailable Radiology Attending Clinician Unavailable MIKHAIL HURTADO Attending Clinician Unavailab sil [email or web address] Admitting Clinician UnavailNIECY Barber Admitting Clinician Unavailab MEKA Ricks Admitting Clinician Unavailable MIKHAIL HURTADO Admitting Clinician Unavailab le Payers Payer Name Policy Type Policy Number Effective Date Expirati on Date Source MEDICARE PART A \T\ [id number] 2004 00:00:00 [employer] TRADITIONAL [id number] 2017 00:00:00 Problems Condition Name Condition Details Condition Category Status Onset Date Resolution Date Last Treatment Date Treating Clinician Comments Source No known active problems No known active problems Disease [facility] Allergies, Adverse Reactions, Alerts Allergy Name Allergy Type Status Severity Reaction(s) Onset Date Inactive Date Treating Clinician Comments Source CODEINE DRUG INGREDI Active N/V 09-18 00:00: 00 [facility] Codeine Propensi ty to adverse reaction s Active Nausea and/or Vomiting 09-18 00:00: 00 [facility] NO KNOWN ALLERGIE S Drug Class Active [facility] Social History Social Habit Start Date Stop Date Quantity Comments Source Gender identity 2023-11-25 02:02:51 Identifies as female gender (finding) [facility] History of tobacco use Current smoker [facility] Sexual orientation [facility] History of Social function 2023-12-11 00:00:00 2023-12-11 00:00:00 [facility] Exposure to SARS-CoV-2 (event) 2022-09-08 00:00:00 2022-09-18 09:01:00 Not sure [facility] Sex Assigned At 1940 00:00:00 1940 00:00:00 [facility] Smoking Status Start Date Stop Date Source Ex-smoker [facility] Tobacco smoking consumption unknown [facility] Medications Ordered Medication Name Filled Medication Name Start Date Stop Date Current Medication? Ordering Clinician Indication Dosage Frequency Signature (SIG) Comments Components Source mirtazapine (Remeron) 15 MG tablet mirtazapine (Remeron) 15 MG tablet 04-18 00:00: 00 Yes 15mg TAKE ONE (1) TABLET(S) BY MOUTH DAILY AT BEDTIME. Layton Garcia [facility] donepezil (Aricept) 5 MG tablet donepezil (Aricept) 5 MG tablet 2022-09 00:00: 00 Yes See Instructio ns, TAKE ONE (1) TABLET(S) BY MOUTH DAILY., # 30 ea, 3 Refill(s), Pharmacy: [facility]70, 162.56, cm, 06/14/23 9:48:00 CDT, Height, 61.023, kg, 06/14/23 9:48:00 CDT, Weight Latyon Garcia [facility] memantine (Namenda) 5 MG tablet memantine [...] CAPSULE(S) BY MOUTH DAILY NEEDED. Darlinval jamar Browderveronica Villaseñor No known medications 09-18 09:05: 08 No No known medication s [facility] gadoteridol (PROHANCE-1 5 mL) injection 0.2 mL/kg 2019-09 21:45: 00 08-12 22:15 :00 No .2mL/kg 0.2 mL/kg, Intravenou s, ONCE, 1 dose, Leni 08/12/20 at 1545, Routine [facility] Vital Signs Vital Name Observation Time Observation Value Comments S ource Heart rate 2022-09-18 16:44:00 62 /min [facility] Respiratory rate 2022-09-18 16:44:00 20 /min [facility] Oxygen saturation in Arterial blood by Pulse oximetry 2022-09-18 16:44:00 99 /min [facility] Systolic blood pressure 2022-09-18 16:00:18 153 mm[Hg] [facility] Diastolic blood pressure 2022-09-18 16:00:18 86 mm[Hg] [facility] Body temperature 2022-09-18 15:03:00 36.89 Keesha [facility] Body height 2022-09-18 15:03:00 160 cm [facility] Body weight 2022-09-18 15:03:00 53.524 kg [facility] BMI 2022-09-18 15:03:00 20.90 kg/m2 [facility] Procedures Procedure Date / Time Performed Performing Clinicia n Source CT TRAUMA HEAD WO CONTRAST 2022-09-18 15:55:32 Niecy Ball [facility] CT TRAUMA CERVICAL SPINE WO CONTRAST 2022-09-18 15:55:32 Niecy Ball [facility] XR SHOULDER <2 VW LEFT 2022-09-18 15:40:40 Ashley Ball [facility] NOTICE OF PRIVACY PRACTICES 2022-09-18 14:59:10 Doctor Unassigned, [place] [facility] CONSENT/REFUSAL FOR DIAGNOSIS AND TREATMENT 2022-09-18 14:58:45 Doctor Unassigned, [place] [facility] MR ABDOMEN W WO CONTRAST MRCP 2020-08-12 22:16:07 Requisition, Paper [facility] NOTICE OF PRIVACY PRACTICES 2020-08-12 21:10:37 Doctor Unassigned, [place] [facility] CONSENT/REFUSAL FOR DIAGNOSIS AND TREATMENT 2020-08-12 21:10:07 Doctor Unassigned, [place] [facility] ASSIGNMENT OF BENEFITS 2020-08-12 21:09:46 Docto r Unassigned, [place] [facility] Encounters Start Date/Time End Date/Time Encounter Type Admission Type Attending [facility] Facility Care Department Encounter ID Source 2024-04-17 00:00:00 2024-04-18 10:18:36 Seamus Patel [id number] Layton Garcia [facility] 2023-07-03 00:00:00 2023-07-03 00:00:00 Outpatient [email or web address] [email or web address] PRIV PRIV [id number] [facility] 2023-07-02 00:00:00 2023-07-02 00:00:00 Outpatient [email or web address] [email or web address] PRIV PRIV [id number] [facility] 2022-09-18 09:05:00 2022-09-18 10:46:00 Emergency X NIECY BALL [facility] ERT [id number] [facility] 2022-09-18 09:05:00 2022-09-18 10:46:00 Emergency Niecy Ball [facility] [id number] [facility] 2020-08-12 15:11:31 2020-08-12 23:59:00 Outpatient R RADIOLOGY [facility] [id number] [facility] 2020-08-12 15:00:00 2020-08-12 23:59:00 Hospital Encounter Radiology [facility] [id number] 2020-08-12 15:00:00 2020-08-12 23:59:00 Hospital Encounter Radiology [facility] [id number] [facility] Results Test Description Test Time Test Comments [...] without and with contrast including MRCP studies. [facility], Radiant Results Inft User - 08/12/2020 4:29 [...] including MRCP studies. [facility], [id number] 09:33:00* Test Item Value Reference Range Interpretation [...] and management of chronic kidney failure. [facility]
[2024-08-24] MEDS ORDERED: NA CHLORIDE 0.9% 500 ML ONE (11:46)
[2024-08-24] MEDS ORDERED: dexAMETHasone 10 MG/ML VIAL ONE (11:46)
[2024-08-24] MEDS ORDERED: PROMETHAZINE INJ 25 MG/ML AMP ONE (12:36)
--- NOTE | 2024-08-24 12:44 | ER ---
Nurse's Notes [facility] Name: Milan Weir Age: 84 yrs Sex: Female : 1940 Arrival Date: 08/24/2024 Time: 10:53 Bed 13 Private MD: Diagnosis: Low back pain;Abdominal pain, unspecified;Nausea with vomiting, unspecified Presentation: 08/24 10:57 Chief complaint: EMS states: CHRONIC BACK PAIN, DENIES FALL OR URINARY S/S. Coronavirus bp screen: At this time, the client does not indicate any symptoms associated with coronavirus-19. Ebola Screen: No symptoms or risks identified at this time. Initial Sepsis Screen: Does the patient meet any 2 criteria? No. Patient's initial sepsis screen is negative. Does the patient have a suspected source of infection? No. Patient's initial sepsis screen is negative. Risk Assessment: Do you want to hurt yourself or someone else? Patient reports no desire to harm self or others. Onset of symptoms is unknown. Care prior to arrival: Medication(s) given: 30 MG TORADOL, 4 MG ZOFRAN. 10:57 Method Of Arrival: EMS: [facility] bp 10:57 Acuity: JARRETT 4 bp Triage Assessment: 10:58 General: Appears in no apparent distress. Behavior is calm, cooperative. Pain: bp Complains of pain in back. EENT: No deficits noted. Neuro: Level of Consciousness is awake, alert, obeys commands, Oriented to Appropriate for age. Cardiovascular: No deficits noted. Respiratory: No deficits noted. GI: No signs and/or symptoms were reported involving the gastrointestinal system. : No signs and/or symptoms were reported regarding the genitourinary system. Derm: No deficits noted. Musculoskeletal: Circulation, motion, and sensation intact. Range of motion: intact in all extremities. Historical: - Allergies: 10:58 Codeine; bp 10:58 tramadol; bp 10:58 Tylenol-Codeine; bp - PMHx: 10:58 Alzheimers; COPD; HARD OF HEARING; Hernia; Pancreatitis; bp - PSHx: 10:58 Appendectomy; Adenoid excision; breast implants; Cholecystectomy; double masectomy; bp stomach surgery to prevent vomiting; Tonsillectomy; Total abdominal hysterectomy; - Immunization history:: Adult Immunizations up to date. - Infectious Disease History:: Denies. - Social history:: Smoking status: Patient denies any tobacco usage or history of. - Family history:: not pertinent. Screenin:44 [facility] ED Fall Risk Assessment (Adult) History of falling in the last 3 months, ap3 including since admission No falls in past 3 months (0 pts) Confusion or Disorientation No (0 pts) Intoxicated or Sedated No (0 pts) Impaired Gait No (0 pts) Mobility Assist Device Used No (0 pt) Altered Elimination No (0 pt) Score/Fall Risk Level 0 - 2 = Low Risk Oriented to surroundings, Maintained a safe environment, Educated pt \\T\\ family on fall prevention, incl call for assistance when getting out of bed, Assessed \\T\\ reinforced patient's understanding of fall precautions, Hourly rounding (assess needs \\T\\ fall precautionary measures) done, Used ambulatory aids as needed (educated on \\T\\ assisted with), Used gait belt as appropriate. Abuse screen: Denies threats or abuse. Nutritional screening: No deficits noted. Tuberculosis screening: No symptoms or risk factors identified. Assessment: 10:59 General: Appears in no apparent distress. Behavior is calm, cooperative. Neuro: Level bp of Consciousness is awake, alert, obeys commands, Oriented to Appropriate for age. 12:11 General: Appears in no apparent distress. Behavior is calm, cooperative, appropriate ap3 for age. Pain: Complains of pain in back. Neuro: Level of Consciousness is awake, alert, obeys commands, Oriented to person, place, time, situation. Cardiovascular: Patient's skin is warm and dry. Respiratory: Airway is patent Respiratory effort is even, unlabored, Respiratory pattern is regular, symmetrical. GI: Reports nausea. 12:15 Reassessment: patient refusing labwork and EKG at this time. patient states "I just ap3 need a shot of Phenergan and then let me on my way". Vital Signs: 10:57 BP 126 / 72; Pulse 71; Resp 16; Temp 98; Pulse Ox 100% ; bp 12:16 Pulse 66; Resp 16; Pulse Ox 100% ; ap3 12:58 BP 138 / 68; Pulse 67; Resp 17; Temp 97.8(O); Pulse Ox 99% on R/A; ap3 [place] Coma Score: 12:46 Eye Response: spontaneous(4). Motor Response: obeys commands(6). Verbal Response: nargis oriented(5). Total: 15. ED Course: 10:56 Patient arrived in ED. bp 10:58 Triage completed. bp 10:58 Arm band placed on. bp 11:07 Sean Seymour MD is Attending Physician. nargis 11:55 Jeannine Wynn, SANDY is Primary Nurse. ap3 12:00 Maintain EMS IV. Dressing intact. Good blood return noted. Site clean \\T\\ dry. Gauge \\T\\ ap 3 site: 22g right hand. Flushed with 10 mL NS. 12:42 Burak Pino MD is Referral Physician. nargis 12:44 Patient has correct armband on for positive identification. Bed in low position. Call ap3 light in reach. Side rails up X2. Adult w/ patient. 12:44 No provider procedures requiring assistance completed. ap3 12:59 Provided Education on: medications prior to administration . ap3 12:59 IV discontinued, intact, bleeding controlled, No redness/swelling at site. Pressure ap3 dressing applied. Administered Medications: 11:20 Not Given (Patient Refused): [id number] mg IVP once ap3 11:20 Not Given (Patient Refused): fentanyl (pf)25 mcg IVP once ap3 11:20 Not Given (Patient Refused): ondansetron 4 mg IVP once; over 2 minutes ap3 12:43 Not Given (Patient Refused): ns 0.9% 500 ml 500 ml IV at 1 bolus once; to be given as a ap3 bolus over 30 minutes 12:43 Not Given (Patient Refused): Decadron - [id number] mg IVP once ap3 12:43 Drug: Promethazine IVP 12.5 mg IVP once Route: IVP; Site: right hand; ap3 12:58 Follow up: Response: No adverse reaction; Nausea is decreased ap3 12:43 Drug: Promethazine IM 12.5 mg IM once Route: IM; Site: right deltoid; ap3 12:58 Follow up: Response: No adverse reaction; Nausea is decreased ap3 Medication: 12:59 VIS not applicable for this client. ap3 Outcome: 12:43 Discharge ordered by . nargis 12:58 Discharged to home ambulatory, with family, ap3 12:58 Condition: good 12:58 Discharge instructions given to patient, Instructed on discharge instructions, follow up and referral plans. medication usage, Demonstrated understanding of instructions, follow-up care, medications, Prescriptions given X 2, 12:59 Patient left the ED. ap3 Signatures: Sean Seymour MD MD cha Peltier, Brian, RN RN Jeannine Sanches RN RN ap3
--- NOTE | 2024-08-24 12:44 | EDPHYS ---
Physician Documentation [facility] Name: Milan Weir Age: 84 yrs Sex: Female : 1940 Arrival Date: 08/24/2024 Time: 10:53 Bed 13 Private MD: ED Physician Sean Seymour HPI: 08/24 12:32 This 84 yrs old Female presents to ER via EMS with complaints of Back Pain. nargis 12:32 The patient presents with pain that is chronic, with no known mechanism of injury. The nargis symptoms are located in the low back. 12:33 The patient presents with abdominal pain in the upper abdomen, in the lower abdomen. nargis Onset: The symptoms/episode began/occurred 1 day(s) ago. The patient presents to the emergency department with nausea, vomiting, abdominal pain, of the right upper quadrant, left upper quadrant, right lower quadrant and left lower quadrant. Possible causes: unknown. Associated signs and symptoms: Pertinent positives: abdominal pain, nausea, vomiting. Modifying factors: The patient symptoms are alleviated by nothing, the patient symptoms are aggravated by any movement, walking. Severity of symptoms: At their worst the symptoms were moderate, in the emergency department the symptoms are unchanged. Associated signs and symptoms: Pertinent positives: abdominal pain, nausea, vomiting. The symptoms do not radiate. Historical: - Allergies: 10:58 Codeine; bp 10:58 tramadol; bp 10:58 Tylenol-Codeine; bp - PMHx: 10:58 Alzheimers; COPD; HARD OF HEARING; Hernia; Pancreatitis; bp - PSHx: 10:58 Appendectomy; Adenoid excision; breast implants; Cholecystectomy; double masectomy; bp stomach surgery to prevent vomiting; Tonsillectomy; Total abdominal hysterectomy; - Immunization history:: Adult Immunizations up to date. - Infectious Disease History:: Denies. - Social history:: Smoking status: Patient denies any tobacco usage or history of. - Family history:: not pertinent. ROS: 12:34 Constitutional: Negative for fever, chills, and weight loss, Eyes: Negative for injury, nargis pain, redness, and discharge, ENT: Negative for injury, pain, and discharge, Neck: Negative for injury, pain, and swelling, Cardiovascular: Negative for chest pain, palpitations, and edema, Respiratory: Negative for shortness of breath, cough, wheezing, and pleuritic chest pain, Back: Negative for injury and pain, : Negative for injury, bleeding, discharge, and swelling, MS/Extremity: Negative for injury and deformity, Skin: Negative for injury, rash, and discoloration, Neuro: Negative for headache, weakness, numbness, tingling, and seizure, Psych: Negative for depression, anxiety, suicide ideation, homicidal ideation, and hallucinations, Allergy/Immunology: Negative for hives, rash, and allergies, Endocrine: Negative for neck swelling, polydipsia, polyuria, polyphagia, and marked weight changes, Hematologic/Lymphatic: Negative for swollen nodes, abnormal bleeding, and unusual bruising, 12:34 Abdomen/GI: Positive for abdominal pain, nausea and vomiting, abdominal cramps, of the right upper quadrant, left upper quadrant, right lower quadrant and left lower quadrant, Exam: 12:34 Constitutional: This is a well developed, well nourished patient who is awake, alert, nargis and in no acute distress. Head/Face: Normocephalic, atraumatic. Eyes: Pupils equal round and reactive to light, extra-ocular motions intact. Lids and lashes normal. Conjunctiva and sclera are non-icteric and not injected. Cornea within normal limits. Periorbital areas with no swelling, redness, or edema. ENT: Nares patent. No nasal discharge, no septal abnormalities noted. Tympanic membranes are normal and external auditory canals are clear. Oropharynx with no redness, swelling, or masses, exudates, or evidence of obstruction, uvula midline. Mucous membranes moist. Neck: Trachea midline, no thyromegaly or masses palpated, and no cervical lymphadenopathy. Supple, full range of motion without nuchal rigidity, or vertebral point tenderness. No Meningismus. Chest/axilla: Normal chest wall appearance and motion. Nontender with no deformity. No lesions are appreciated. Cardiovascular: Regular rate and rhythm with a normal S1 and S2. No gallops, murmurs, or rubs. Normal PMI, no JVD. No pulse deficits. Respiratory: Lungs have equal breath sounds bilaterally, clear to auscultation and percussion. No rales, rhonchi or wheezes noted. No increased work of breathing, no retractions or nasal flaring. Back: No spinal tenderness. No costovertebral tenderness. Full range of motion. Skin: Warm, dry with normal turgor. Normal color with no rashes, no lesions, and no evidence of cellulitis. MS/ Extremity: Pulses equal, no cyanosis. Neurovascular intact. Full, normal range of motion., bilateral aka Neuro: Awake and alert, GCS 15, oriented to person, place, time, and situation. Cranial nerves II-XII grossly intact. Motor strength 5/5 in all extremities. Sensory grossly intact. Cerebellar exam normal. Normal gait. Psych: Awake, alert, with orientation to person, place and time. Behavior, mood, and affect are within normal limits. 12:34 Abdomen/GI: Inspection: abdomen appears normal, Bowel sounds: active, Palpation: mild abdominal tenderness, in all quadrants, Liver: no appreciated palpable abnormalities, Hernia: Vital Signs: 10:57 BP 126 / 72; Pulse 71; Resp 16; Temp 98; Pulse Ox 100% ; bp 12:16 Pulse 66; Resp 16; Pulse Ox 100% ; ap3 12:58 BP 138 / 68; Pulse 67; Resp 17; Temp 97.8(O); Pulse Ox 99% on R/A; ap3 [place] Coma Score: 12:46 Eye Response: spontaneous(4). Motor Response: obeys commands(6). Verbal Response: nargis oriented(5). Total: 15. MDM: 11:07 Medical Screening Exam initiated nargis 12:39 Differential diagnosis: Nonspecific abd pain, pancreatitis, diverticulitis, viral nargis gastroenteritis, gastroenteritis, chronic back pain, Mesenteric ischemia or infarction, non-specific abd pain, pancreatitis, Peptic Ulcer Disease, Perf. Duodenal Ulcer, Pyelonephritis, Ureterolithiasis, urinary tract infection. Data reviewed: vital signs, nurses notes. Consideration of Admission/Observation Escalation of care including admission/observation considered. I considered the following discharge prescriptions or medication management in the emergency department Medications were administered in the Emergency Department. See MAR. Test considered but Not performed: Other Details pt refused all labs , studies, regardless if an acute emergency is missed, no ekg, no urine, no labs, no ct. Care significantly affected by the following chronic conditions: Chronic Obstructive Pulmonary Disease, alzheimers, ak chin, hernia, pancreatitis. 12:46 Historians other than the Patient: Family Member: family, agrees with patient , only nargis meds, no test. Counseling: I had a detailed discussion with the patient and/or guardian regarding the historical points, exam findings, and any diagnostic results supporting the discharge/admit diagnosis, the need for outpatient follow up, for definitive care, a family practitioner, a leasing machine tender. Administered Medications: 11:20 Not Given (Patient Refused): mg IVP once ap3 11:20 Not Given (Patient Refused): fentanyl (pf)25 mcg IVP once ap3 11:20 Not Given (Patient Refused): ondansetron 4 mg IVP once; over 2 minutes ap3 12:43 Not Given (Patient Refused): ns 0.9% 500 ml 500 ml IV at 1 bolus once; to be given as a ap3 bolus over 30 minutes 12:43 Not Given (Patient Refused): Decadron - mg IVP once ap3 12:43 Drug: Promethazine IVP 12.5 mg IVP once Route: IVP; Site: right hand; ap3 12:58 Follow up: Response: No adverse reaction; Nausea is decreased ap3 12:43 Drug: Promethazine IM 12.5 mg IM once Route: IM; Site: right deltoid; ap3 12:58 Follow up: Response: No adverse reaction; Nausea is decreased ap3 Disposition Summary: 08/24/24 12:43 Discharge Ordered Notes: Location: Home nargis Problem: new nargis Symptoms: have improved nargis Condition: Fair nargis Diagnosis - Low back pain nargis - Abdominal pain, unspecified nargis - Nausea with vomiting, unspecified nargis Followup: nargis - With: Private Physician - When: 2 - 3 days - Reason: Recheck today's complaints, Continuance of care, Re-evaluation by your physician Followup: nargis - With: Burak Pino MD - When: 2 - 3 days - Reason: Recheck today's complaints, Re-evaluation by your physician Discharge Instructions: - Discharge Summary Sheet nargis - Abdominal Pain, Adult nargis - Chronic Back Pain nargis - Nausea and Vomiting, Adult nargis - Back Injury Prevention, [id number] nargis Forms: - Medication Reconciliation Form nargis - Antibiotic Education nargis - Prescription Opioid Use nargis - Patient Portal Instructions nargis - Leadership Thank You Letter nargis Prescriptions: - ondansetron 4 mg Oral Tablet,disintegrating - take 1 tablet ORAL route every 8 hours; 20 tablet; Refills: 0, Product nargis Selection Permitted - promethazine 12.5 mg Oral tablet - take 1 tablet ORAL route 3 times per day prn intractable nausea and vomiting; nargis 15 tablet; Refills: 0, Product Selection Permitted Signatures: Dispatcher [employer] EDSean Everett MD MD cha Peltier, Brian, RN RN Jeannine Sanches RN RN ap3 Corrections: (The following items were deleted from the chart) 11: 11:12 CBC+H.LAB.BRZ ordered. EDMS EDMS 11:12 11:12 COMPREHENSIVE METABOLIC PANEL+C.LAB.BRZ ordered. EDMS EDMS 11:12 11:12 Urinalysis+U.LAB.BRZ ordered. EDMS EDMS 11:12 11:12 Spine Lumbar Wo Con+CT.RAD.BRZ ordered. EDMS EDMS 12:32 12:32 Troponin High Sensitivity+C.LAB.BRZ ordered. EDMS EDMS 12:43 12:32 EKG - Nurse/Tech ordered. nargis ap3
[2024-08-24 13:29] VITALS: BP 138/68; TEMP 97.8; O2SAT 99
== END 2024-08-24 12:59 | disposition home or self-care (01) ==
LOC: ER 10:53
DX: M54.50 Low back pain, unspecified (principal); R10.11 Right upper quadrant pain; R11.2 Nausea with vomiting, unspecified; G30.9 Alzheimer's disease, unspecified; F02.80 Dementia in other diseases classified elsewhere, unspecified severity, without behavioral disturbance, psychotic disturbance, mood disturbance, and anxiety
CPT/HCPCS: 96372; 96374; 99284; J2550; J1100; J7040

== ENCOUNTER 2024-08-31 11:47 | Emergency (ER) | payer OTHER, BC ==
--- OUTSIDE RECORDS SUMMARY | 2024-08-31 11:49 | XMS REPORT | Continuity of Care Document ---
Author Name Unknown Address [address] [facility]. [address] [place] [address] [facility] thconnect Address [address] [facility]. [address] [place] [address] Care Team Providers Care Acid Adjuster Name Role Phone PCP, PATIENT DOES NOT HAVE A Primary Care Physic padmini Unavailable Seamus Castro MD Attending Clinician [phone] [email or web address] Attending Clinician UnavailNIECY Barber Attending Clinician Unavailab Niecy Collazo DO Attending Clinician [phone] RADIOLOGY Attending Clinician Unavailable Radiology Attending Clinician Unavailable MIKHAIL HURTADO Attending Clinician Unavailab sil [email or web address]_S Admitting Clinician UnavailNIECY Barber Admitting Clinician Unavailab MEKA Ricks Admitting Clinician Unavailable MIKHAIL HURTADO Admitting Clinician Unavailab le Payers Payer Name Policy Type Policy Number Effective Date Expirati on Date Source MEDICARE PART A \T\ B [id number] 2004 00:00:00 BCBS TRADITIONAL [id number] 2017 00:00:00 Problems Condition Name Condition Details Condition Category Status Onset Date Resolution Date Last Treatment Date Treating Clinician Comments Source No known active problems No known active problems Disease [facility] Allergies, Adverse Reactions, Alerts Allergy Name Allergy Type Status Severity Reaction(s) Onset Date Inactive Date Treating Clinician Comments Source CODEINE DRUG INGREDI Active N/V 09-18 00:00: 00 [facility] Codeine Propensi ty to adverse reaction s Active Nausea and/or Vomiting 09-18 00:00: 00 [facility] NO KNOWN ALLERGIE S Drug Class Active [facility] Social History Social Habit Start Date Stop Date Quantity Comments Source Gender identity 2023-11-25 02:02:51 Identifies as female gender (finding) [facility] History of tobacco use Current smoker [facility] Sexual orientation [facility] History of Social function 2023-12-11 00:00:00 2023-12-11 00:00:00 [facility] Exposure to SARS-CoV-2 (event) 2022-09-08 00:00:00 2022-09-18 09:01:00 Not sure [facility] Sex Assigned At 1940 00:00:00 1940 00:00:00 [facility] Smoking Status Start Date Stop Date Source Ex-smoker [facility] Tobacco smoking consumption unknown [facility] Medications Ordered Medication Name Filled Medication Name Start Date Stop Date Current Medication? Ordering Clinician Indication Dosage Frequency Signature (SIG) Comments Components Source mirtazapine (Remeron) 15 MG tablet mirtazapine (Remeron) 15 MG tablet 04-18 00:00: 00 Yes 15mg TAKE ONE (1) TABLET(S) BY MOUTH DAILY AT BEDTIME. Layton Garcia [facility] donepezil (Aricept) 5 MG tablet donepezil (Aricept) 5 MG tablet 2022-09 00:00: 00 Yes See Instructio ns, TAKE ONE (1) TABLET(S) BY MOUTH DAILY., # 30 ea, 3 Refill(s), Pharmacy: [facility], 162.56, cm, 06/14/23 9:48:00 CDT, Height, 61.023, kg, 06/14/23 9:48:00 CDT, Weight Layton Garcia [facility] memantine (Namenda) 5 MG tablet memantine [...] CAPSULE(S) BY MOUTH DAILY NEEDED. Darlinval jamar Kaiserveronica Villaseñor No known medications 09-18 09:05: 08 No No known medication s [facility] gadoteridol (PROHANCE-1 5 mL) injection 0.2 mL/kg 2019-09 21:45: 00 08-12 22:15 :00 No .2mL/kg 0.2 mL/kg, Intravenou s, ONCE, 1 dose, Leni 08/12/20 at 1545, Routine [facility] Vital Signs Vital Name Observation Time Observation Value Comments S ource Heart rate 2022-09-18 16:44:00 62 /min [facility] Respiratory rate 2022-09-18 16:44:00 20 /min [facility] Oxygen saturation in Arterial blood by Pulse oximetry 2022-09-18 16:44:00 99 /min [facility] Systolic blood pressure 2022-09-18 16:00:18 153 mm[Hg] [facility] Diastolic blood pressure 2022-09-18 16:00:18 86 mm[Hg] [facility] Body temperature 2022-09-18 15:03:00 36.89 Keesha [facility] Body height 2022-09-18 15:03:00 160 cm [facility] Body weight 2022-09-18 15:03:00 53.524 kg [facility] BMI 2022-09-18 15:03:00 20.90 kg/m2 [facility] Procedures Procedure Date / Time [...] OF PRIVACY PRACTICES 2022-09-18 14:59:10 Doctor Unassigned, [place] [employer] [facility] CONSENT/REFUSAL FOR DIAGNOSIS AND TREATMENT 2022-09-18 14:58:45 Doctor Unassigned, [employer] [facility] MR ABDOMEN W WO CONTRAST MRCP 2020-08-12 22:16:07 Requisition, Paper [facility] NOTICE OF PRIVACY PRACTICES 2020-08-12 21:10:37 Doctor Unassigned, [employer] [facility] CONSENT/REFUSAL FOR DIAGNOSIS AND TREATMENT 2020-08-12 21:10:07 Doctor Unassigned, [employer] [facility] ASSIGNMENT OF BENEFITS 2020-08-12 21:09:46 Docto r Unassigned, [employer] [facility] Encounters Start Date/Time End Date/Time Encounter Type Admission Type Attending [facility] Care Department Encounter ID Source 2024-04-17 00:00:00 2024-04-18 10:18:36 Seamus Patel [id number] Layton Garcia [facility] 2023-07-03 00:00:00 2023-07-03 00:00:00 Outpatient [email or web address] [email or web address]_S PRIV PRIV [id number] [facility] 2023-07-02 00:00:00 2023-07-02 00:00:00 Outpatient [email or web address] diyala_S PRIV PRIV [id number] [facility] 2022-09-18 09:05:00 2022-09-18 10:46:00 Emergency X NIECY [facility] ERT [id number] [facility] 2022-09-18 09:05:00 2022-09-18 10:46:00 Emergency Niecy Ball [facility] [id number] [facility] 2020-08-12 15:11:31 2020-08-12 23:59:00 Outpatient R RADIOLOGY [facility] [id number] [facility] 2020-08-12 15:00:00 2020-08-12 23:59:00 Hospital Encounter Radiology [facility] [id number] [facility] 2020-08-12 15:00:00 2020-08-12 23:59:00 Hospital Encounter Radiology [facility] [id number] Results Test Description Test Time Test Comments [...] without and with contrast including MRCP studies. [facility], Radiant Results Inft User - 08/12/2020 4:29 [...] without and with contrast including [facility] studies. [facility] [id number] 09:33:00* Test Item Value Reference Range Interpretation [...] and management of chronic kidney failure. [facility]
--- NOTE | 2024-08-31 12:10 | EDPHYS ---
Physician Documentation [facility] Name: Milan Weir Age: 84 yrs Sex: Female : 1940 Arrival Date: 08/31/2024 Time: 11:47 Bed 14 Private MD: ED Physician John Ramon HPI: 08/31 12:06 This 84 yrs old Female presents to ER via Unassigned with complaints of Facial Swelling.rn 12:06 The patient or guardian reports pain. The complaints affect the left ear and left cheek.rn 12:06 Onset: The symptoms/episode began/occurred last night. Severity of symptoms: At their rn worst the symptoms were mild, in the emergency department the symptoms are unchanged. The patient has not experienced similar symptoms in the past. Patient reports fall with facial injury 2 or 3 weeks ago. States was evaluated and imaging was negative for fracture. Most recently started to have left cheek and preauricular pain with subjective swelling. No new injury. No fever or chills. No involvement of eyes.. Historical: - Allergies: 12:30 Codeine; hb 12:30 tramadol; hb 12:30 Tylenol-Codeine; hb - PMHx: 12:30 Alzheimers; COPD; HARD OF HEARING; Hernia; Pancreatitis; hb - PSHx: 12:30 Adenoid excision; Appendectomy; breast implants; Cholecystectomy; double masectomy; hb stomach surgery to prevent vomiting; Tonsillectomy; Total abdominal hysterectomy; - Immunization history:: Adult Immunizations up to date. - Infectious Disease History:: Denies. - Family history:: not pertinent. - Social history:: Smoking status: . - Hospitalizations: : No recent hospitalization is reported. ROS: 12:06 Constitutional: Negative for fever, chills, and weight loss, Eyes: Negative for injury, rn pain, redness, and discharge, ENT: Positive for left cheek preauricular pain Neck: Negative for injury, pain, and swelling, Cardiovascular: Negative for chest pain, palpitations, and edema, Respiratory: Negative for shortness of breath, cough, wheezing, and pleuritic chest pain, MS/Extremity: Negative for injury and deformity, Skin: Negative for injury, rash, and discoloration, Neuro: Negative for headache, weakness, numbness, tingling, and seizure, Exam: 12:06 Constitutional: This is a well developed, well nourished patient who is awake, alert, rn and in no acute distress. Head/Face: Normocephalic, atraumatic. No evidence of abscess or parotid swelling on either side. No evidence of rash or discoloration. No erythema or warmth. Skin: Warm, dry with normal turgor. Normal color with no rashes, no lesions, and no evidence of cellulitis. Neuro: Awake and alert, GCS 15 Vital Signs: 12:05 BP 153 / 80; Pulse 67; Resp 16; Temp 98; Pulse Ox 100% ; Pain 10/10; hb 12:05 Pain Scale: Adult hb Gonzales Coma Score: 12:06 Eye Response: spontaneous(4). Motor Response: obeys commands(6). Verbal Response: rn oriented(5). Total: 15. 12:06 Eye Response: spontaneous(4). Motor Response: obeys commands(6). Verbal Response: rn oriented(5). Total: 15. MDM: 11:53 Medical Screening Exam initiated rn 12:06 Differential diagnosis: Contusion of Hematoma on. Data reviewed: vital signs, nurses rn notes, and as a result, I will discharge patient. Counseling: I had a detailed discussion with the patient and/or guardian regarding the historical points, exam findings, and any diagnostic results supporting the discharge/admit diagnosis, the need for outpatient follow up, to return to the emergency department if symptoms worsen or persist or if there are any questions or concerns that arise at home. Special discussion: I discussed with the patient/guardian in detail that at this point there is no indication for admission to the hospital. It is understood, however, that if the symptoms persist or worsen the patient needs to return immediately for re-evaluation. Administered Medications: No medications were administered Disposition Summary: 08/31/24 12:09 Discharge Ordered Notes: Location: Home rn Problem: new rn Symptoms: have improved rn Condition: Stable rn Diagnosis - Contusion of unspecified part of head rn - Neuralgia and neuritis, unspecified rn Followup: rn - With: Private Physician - When: As needed - Reason: Recheck today's complaints, Re-evaluation by your physician Discharge Instructions: - Discharge Summary Sheet rn - Contusion rn - Neuropathic Pain rn Forms: - Medication Reconciliation Form rn - Antibiotic dehorner - Prescription Opioid Use rn - Patient Portal Instructions rn - Leadership Thank You Letter rn Prescriptions: - gabapentin 100 mg Oral capsule - take 1 capsule ORAL route 2 times per day As needed; 14 capsule; Refills: 0, rn Product Selection Permitted Signatures: John Ramon MD MD rn Baxter, Heather, RN RN Corrections: (The following items were deleted from the chart) 12:08 12:06 Constitutional: Negative for fever, chills, and weight loss, Eyes: Negative for rn injury, pain, redness, and discharge, ENT: Positive for left cheek preauricular pain Neck: Negative for injury, pain, and swelling, Cardiovascular: Negative for chest pain, palpitations, and edema, Respiratory: Negative for shortness of breath, cough, wheezing, and pleuritic chest pain, MS/Extremity: Negative for injury and deformity, Neuro: Negative for headache, weakness, numbness, tingling, and seizure, rn
--- NOTE | 2024-08-31 12:33 | ER ---
Nurse's Notes [facility] Name: Milan Weir Age: 84 yrs Sex: Female : 1940 Arrival Date: 08/31/2024 Time: 11:47 Bed 14 Private MD: Diagnosis: Contusion of unspecified part of head;Neuralgia and neuritis, unspecified Presentation: 08/31 12:05 Chief complaint: Left sided facial pain that radiates to left neck and upper back after hb fall 3 weeks ago. Coronavirus screen: At this time, the client does not indicate any symptoms associated with coronavirus-19. Ebola Screen: No symptoms or risks identified at this time. Initial Sepsis Screen: Does the patient meet any 2 criteria? No. Patient's initial sepsis screen is negative. Does the patient have a suspected source of infection? No. Patient's initial sepsis screen is negative. Risk Assessment: Do you want to hurt yourself or someone else? Patient reports no desire to harm self or others. Onset of symptoms was August 10, 2024. 12:05 Method Of Arrival: Ambulatory hb 12:05 Acuity: JARRETT 4 hb Triage Assessment: 12:30 General: Appears in no apparent distress. Behavior is calm, cooperative. Pain: Pain hb currently is 10 out of 10 on a pain scale. Neuro: Level of Consciousness is awake, alert, obeys commands, Oriented to person, place, time, situation. Cardiovascular: Patient's skin is warm and dry. Respiratory: Respiratory effort is even, unlabored, Respiratory pattern is regular, symmetrical. GI: No signs and/or symptoms were reported involving the gastrointestinal system. : No signs and/or symptoms were reported regarding the genitourinary system. Derm: Skin is pink, warm \T\ dry. Musculoskeletal: Reports pain in left face, neck and upper back. Historical: - Allergies: 12:30 Codeine; hb 12:30 tramadol; hb 12:30 Tylenol-Codeine; hb - PMHx: 12:30 Alzheimers; COPD; HARD OF HEARING; Hernia; Pancreatitis; hb - PSHx: 12:30 Adenoid excision; Appendectomy; breast implants; Cholecystectomy; double masectomy; hb stomach surgery to prevent vomiting; Tonsillectomy; Total abdominal hysterectomy; - Immunization history:: Adult Immunizations up to date. - Infectious Disease History:: Denies. - Family history:: not pertinent. - Social history:: Smoking status: . - Hospitalizations: : No recent hospitalization is reported. Screenin:08 [facility] ED Fall Risk Assessment (Adult) History of falling in the last 3 months, hb including since admission Yes- single mechanical fall (1 pt) Confusion or Disorientation No (0 pts) Intoxicated or Sedated No (0 pts) Impaired Gait No (0 pts) Mobility Assist Device Used No (0 pt) Altered Elimination No (0 pt) Score/Fall Risk Level 0 - 2 = Low Risk Oriented to surroundings, Maintained a safe environment, Educated pt \T\ family on fall prevention, incl call for assistance when getting out of bed. Abuse screen: Denies threats or abuse. Denies injuries from another. Nutritional screening: No deficits noted. Tuberculosis screening: No symptoms or risk factors identified. Assessment: 12:32 General: See triage assessment . hb Vital Signs: 12:05 BP 153 / 80; Pulse 67; Resp 16; Temp 98; Pulse Ox 100% ; Pain 10/10; hb 12:05 Pain Scale: Adult hb Jasper Coma Score: 12:06 Eye Response: spontaneous(4). Motor Response: obeys commands(6). Verbal Response: rn oriented(5). Total: 15. 12:06 Eye Response: spontaneous(4). Motor Response: obeys commands(6). Verbal Response: rn oriented(5). Total: 15. ED Course: 11:50 Patient arrived in ED. mr 11:53 John Ramon MD is Attending Physician. rn 12:08 Arm band placed on. hb 12:08 Patient has correct armband on for positive identification. Provided Education on: use hb of call light . 12:08 No provider procedures requiring assistance completed. Patient did not have IV access hb during this emergency room visit. 12:30 Triage completed. hb Administered Medications: No medications were administered Medication: 12:32 VIS not applicable for this client. hb Outcome: 12:09 Discharge ordered by . rn 12:33 Discharged to home ambulatory, hb 12:33 Condition: stable 12:33 Discharge instructions given to patient, Instructed on discharge instructions, follow up and referral plans. medication usage, Demonstrated understanding of instructions, follow-up care, medications, Prescriptions given X 1, 12:33 Patient left the ED. hb Signatures: Ivonne Cota, [place] Reg mr John Ramon MD MD rn Richa Hathaway RN RN hb Corrections: (The following items were deleted from the chart) 12:32 12:30 Arm band placed on hb hb
[2024-08-31 12:41] VITALS: BP 153/80; TEMP 98; O2SAT 100
== END 2024-08-31 12:33 | disposition home or self-care (01) ==
LOC: ER 11:47
DX: S00.83XA Contusion of other part of head, initial encounter (principal); M79.2 Neuralgia and neuritis, unspecified
CPT/HCPCS: 99283

== ENCOUNTER 2024-09-03 11:11 | Emergency (ER) | payer OTHER, BC ==
--- OUTSIDE RECORDS SUMMARY | 2024-09-03 11:28 | XMS REPORT | Continuity of Care Document ---
Author Name Unknown Address [address] [facility]. [address] [place] [address] [facility] thconnect Address [address] [facility] [facility] [place] [address] Care Team Providers Care Customer Marketing Assistant Name Role Phone PCP, PATIENT DOES NOT HAVE A Primary Care Physic padmini Unavailable Seamus Castro MD Attending Clinician [phone] [email or web address]_S Attending Clinician UnavailNIECY Barber Attending Clinician Unavailab Niecy Collazo DO Attending Clinician [phone] RADIOLOGY Attending Clinician Unavailable Radiology Attending Clinician Unavailable MIKHAIL HURTADO Attending Clinician Unavailab sil [email or web address]_S Admitting Clinician UnavailNIECY Barber Admitting Clinician Unavailab MEKA Ricks Admitting Clinician Unavailable MIKHAIL HURTADO Admitting Clinician Unavailab le Payers Payer Name Policy Type Policy Number Effective Date Expirati on Date Source MEDICARE PART A \T\ B [id number] 2004 00:00:00 BCBS TRADITIONAL [id number] 2017 00:00:00 Problems Condition Name Condition Details Condition Category Status Onset Date Resolution Date Last Treatment Date Treating Clinician Comments Source No known active problems No known active problems Disease [facility] Allergies, Adverse Reactions, Alerts Allergy Name Allergy Type Status Severity Reaction(s) Onset Date Inactive Date Treating Clinician Comments Source CODEINE DRUG INGREDI Active N/V 09-18 00:00: 00 [facility] Codeine Propensi ty to adverse reaction s Active Nausea and/or Vomiting 09-18 00:00: 00 [facility] NO KNOWN ALLERGIE S Drug Class Active [facility] Social History Social Habit Start Date Stop Date Quantity Comments Source Gender identity 2023-11-25 02:02:51 Identifies as female gender (finding) [facility] History of tobacco use Current smoker [facility] Sexual orientation [facility] History of Social function 2023-12-11 00:00:00 2023-12-11 00:00:00 [facility] Exposure to SARS-CoV-2 (event) 2022-09-08 00:00:00 2022-09-18 09:01:00 Not sure [facility] Sex Assigned At 1940 00:00:00 1940 00:00:00 [facility] Smoking Status Start Date Stop Date Source Ex-smoker [facility] Tobacco smoking consumption unknown [facility] Medications Ordered Medication Name Filled Medication Name [...] DAILY., # 30 ea, 3 Refill(s), Pharmacy: [facility], 162.56, cm, 06/14/23 9:48:00 CDT, Height, 61.023, kg, 06/14/23 9:48:00 CDT, Weight Layton Garcia [facility] memantine (Namenda) 5 MG [...] CAPSULE(S) BY MOUTH DAILY NEEDED. Darlinval jamar Gipsyveronica Villaseñor No known medications 09-18 09:05: 08 No No known medication s [facility] gadoteridol (PROHANCE-1 5 mL) injection 0.2 mL/kg 2019-09 21:45: 00 08-12 22:15 :00 No .2mL/kg 0.2 mL/kg, Intravenou s, ONCE, 1 dose, Leni 08/12/20 at 1545, Routine [facility] Vital Signs Vital Name Observation Time Observation Value Comments S ource Heart rate 2022-09-18 16:44:00 62 /min [facility] Respiratory rate 2022-09-18 16:44:00 20 /min [facility] Oxygen saturation in Arterial blood by Pulse oximetry 2022-09-18 16:44:00 99 /min [facility] Systolic blood pressure 2022-09-18 16:00:18 153 mm[Hg] [facility] Diastolic blood pressure 2022-09-18 16:00:18 86 mm[Hg] [facility] Body temperature 2022-09-18 15:03:00 36.89 Keesha [facility] Body height 2022-09-18 15:03:00 160 cm [facility] Body weight 2022-09-18 15:03:00 53.524 kg [facility] BMI 2022-09-18 15:03:00 20.90 kg/m2 [facility] Procedures Procedure Date / Time Performed Performing Clinicia n Source CT TRAUMA HEAD WO CONTRAST 2022-09-18 15:55:32 Niecy Ball [facility] CT TRAUMA CERVICAL SPINE WO CONTRAST 2022-09-18 15:55:32 Niecy Ball [facility] XR SHOULDER <2 VW LEFT 2022-09-18 15:40:40 Ashley Ball [facility] NOTICE OF PRIVACY PRACTICES 2022-09-18 14:59:10 Doctor Unassigned, [facility] CONSENT/REFUSAL FOR DIAGNOSIS AND TREATMENT 2022-09-18 14:58:45 Doctor Unassigned, [facility] MR ABDOMEN W WO CONTRAST MRCP 2020-08-12 22:16:07 Requisition, Paper [facility] NOTICE OF PRIVACY PRACTICES 2020-08-12 21:10:37 Doctor Unassigned, [facility] CONSENT/REFUSAL FOR DIAGNOSIS AND TREATMENT 2020-08-12 21:10:07 Doctor Unassigned, [facility] ASSIGNMENT OF BENEFITS 2020-08-12 21:09:46 Docto r Unassigned, [place] [facility] Encounters Start Date/Time End Date/Time Encounter Type Admission Type Attending [facility] Care Department Encounter ID Source 2024-04-17 00:00:00 2024-04-18 10:18:36 Seamus Patel [id number] Layton Garcia [facility] 2023-07-03 00:00:00 2023-07-03 00:00:00 Outpatient [email or web address] diyala_S PRIV PRIV [id number] [facility] 2023-07-02 00:00:00 2023-07-02 00:00:00 Outpatient [email or web address] diyala_S PRIV PRIV [id number] [facility] 2022-09-18 09:05:00 2022-09-18 10:46:00 Emergency X NIECY [facility] ERT [id number] [facility] 2022-09-18 09:05:00 2022-09-18 10:46:00 Emergency Niecy Ball [facility] [id number] [facility] 2020-08-12 15:11:31 2020-08-12 23:59:00 Outpatient R RADIOLOGY [facility] [id number] [facility] 2020-08-12 15:00:00 2020-08-12 23:59:00 Hospital Encounter Radiology [facility] [id number] 2020-08-12 15:00:00 2020-08-12 23:59:00 Hospital Encounter Radiology [facility] [id number] [facility] Results Test Description Test Time [...] without and with contrast including MRCP studies. [facility], Radiant Results Inft User - 08/12/2020 4:29 [...] without and with contrast including MRCP studies. [facility], [id number] 09:33:00* Test Item Value Reference Range Interpretation [...] assessment and management of chronic kidney failure. [facility]
[2024-09-03] MEDS ORDERED: KETOROLAC 30 MG/ML INJ ONE (12:35)
[2024-09-03] MEDS ORDERED: ONDANSETRON 4 MG/2 ML VIAL ONE (12:35)
[2024-09-03 12:36] LABS: Absolute Eosinophils 0.2 K/uL (0-0.5); Absolute Lymphocytes (CBC) 1.6 K/uL (0.7-4.9); Absolute Monocytes 0.6 K/uL (0.1-1.3); Absolute Neutrophil 6.1 K/uL (1.8-8.0); Basophils % 0.5 % (0-1.3); Eosinophils % 2.4 % (0-4.4); Hematocrit 38.7 % (36.0-45.0); Lymphocytes % 18.4 % (15.3-44.8); MCH 31.1 pg (27.0-35.0); MCHC 33.7 g/dL (32.0-36.0); MCV 92.5 fL (80-100); MPV 7.4 fL (7.6-11.3); Monocytes % 7.5 % (3.3-12.3); Neutrophils % 71.2 % (41.7-73.7); Platelets 245 thou/uL (152-406); RBC Red Blood Cell Count 4.18 M/uL (3.86-4.86)
[2024-09-03 12:43] LABS: Anion Gap 8.2 mEq/L (5.0-15.0)
[2024-09-03 12:46] LABS: Potassium 2.2 mEq/L (3.5-5.1)
[2024-09-03] MEDS ORDERED: POTASSIUM CL SA 10 MEQ TAB PO ONE (13:20)
[2024-09-03] MEDS ORDERED: TRAMADOL HCL 50 MG TAB ONE (13:24)
--- NOTE | 2024-09-03 14:37 | RAD REPORT ---
EXAMINATION: CT MAXILLOFACIAL WITH CONTRAST CLINICAL INDICATION: FACIAL PAIN TECHNIQUE: Axial images were obtained through the facial bones and orbits with intravenous contrast. Sagittal and coronal reconstructions were created from the data. One or more of the following dose reduction techniques were used: Automated exposure control, adjustment of the mA and/or kV according to patient size, and/or iterative reconstruction. Unless otherwise specified, incidental findings do not require dedicated imaging follow-up. COMPARISON: No prior exam. FINDINGS: SOFT TISSUE: 27 x 13 mm oblong mass lesion with internal areas of necrosis seen along the left neck p resumably enlarged lymph node. This appears localized to the left level 2/3 jugulodigastric chain. BONES: No evidence of fracture, dislocation, or aggressive osseous lesions. No lesion of the visuali zed skull base or calvarium. ORBITS: The globes are intact. No intraorbital hemorrhage or mass. SINUSES: The visualized paranasal sinuses and mastoid air cells are essentially clear. No additional areas of pathologic areas of post-contrast enhancement identified. IMPRESSION: 27 x 13 mm oblong lesion left neck along the jugulodigastric chain suspected to represent an enlarged lymph node with areas of necrosis. Nonemergent ultrasound follow-up for potential FNA planning be suggested.
--- NOTE | 2024-09-03 15:08 | ER ---
Nurse's Notes [facility] Name: Milan Weir Age: 84 yrs Sex: Female : 1940 Arrival Date: 09/03/2024 Time: 11:11 Bed 6 Private MD: Diagnosis: Acute lymphadenitis, unspecified;Hypokalemia Presentation: 09/03 11:28 Chief complaint: Patient states: L sided neck pain, lumps, hard to swallow for 2 days. ll1 No fever. Coronavirus screen: Client denies travel out of the [place] in the last 14 days. Ebola Screen: Patient denies travel to an Ebola-affected area in the 21 days before illness onset. Initial Sepsis Screen: Does the patient meet any 2 criteria? No. Patient's initial sepsis screen is negative. Does the patient have a suspected source of infection? No. Patient's initial sepsis screen is negative. Risk Assessment: Do you want to hurt yourself or someone else? Patient reports no desire to harm self or others. Onset of symptoms was September 02, 2024. 11:28 Method Of Arrival: Ambulatory ll1 11:28 Acuity: JARRETT 4 ll1 Triage Assessment: 11:29 General: Appears uncomfortable, Behavior is calm, cooperative, appropriate for age. ll1 Pain: Complains of pain in L sided neck/head Quality of pain is described as aching. EENT: Reports pain in left jaw when swallowing. Neuro: Reports headache. Historical: - Allergies: 11:27 Codeine; ll1 11:27 tramadol; ll1 11:27 Tylenol-Codeine; ll1 - PMHx: 11:27 Alzheimers; COPD; HARD OF HEARING; Hernia; Pancreatitis; ll1 - PSHx: 11:27 Adenoid excision; Appendectomy; breast implants; Cholecystectomy; double masectomy; ll1 stomach surgery to prevent vomiting; Tonsillectomy; Total abdominal hysterectomy; - Immunization history:: Adult Immunizations up to date. - Infectious Disease History:: Denies. - Social history:: Smoking status: Patient/guardian denies using tobacco, the patient reports quitting approximately 25 years ago. Screenin:30 [facility] ED Fall Risk Assessment (Adult) History of falling in the last 3 months, tm6 including since admission No falls in past 3 months (0 pts) Confusion or Disorientation No (0 pts) Intoxicated or Sedated No (0 pts) Impaired Gait No (0 pts) Mobility Assist Device Used No (0 pt) Altered Elimination No (0 pt) Score/Fall Risk Level 0 - 2 = Low Risk Oriented to surroundings, Maintained a safe environment, Educated pt \T\ family on fall prevention, incl call for assistance when getting out of bed. Abuse screen: Denies threats or abuse. Denies injuries from another. Nutritional screening: No deficits noted. Tuberculosis screening: No symptoms or risk factors identified. Assessment: 11:30 General: Appears in no apparent distress. Behavior is calm, cooperative. Pain: tm6 Complains of pain in left jaw Pain currently is 9 out of 10 on a pain scale. Neuro: Level of Consciousness is awake, alert, obeys commands, Oriented to person, place, time, situation. Cardiovascular: Patient's skin is warm and dry. Respiratory: Airway is patent Respiratory effort is even, unlabored, Respiratory pattern is regular, symmetrical. GI: Abdomen is flat, non-distended, Reports nausea. : No signs and/or symptoms were reported regarding the genitourinary system. EENT: No signs and/or symptoms were reported regarding the EENT system. Derm: Reports swelling to left jaw. Musculoskeletal: Reports pain in left jaw. 13:07 Reassessment: Patient and/or family updated on plan of care and expected duration. Pain tm6 level reassessed. Patient is alert, oriented x 3, equal unlabored respirations, skin warm/dry/pink. 15:19 Reassessment: Patient and/or family updated on plan of care and expected duration. Pain tm6 level reassessed. Patient is alert, oriented x 3, equal unlabored respirations, skin warm/dry/pink. Vital Signs: 11:28 BP 142 / 80; Pulse 69; Resp 16; Temp 97.3; Pulse Ox 99% ; Weight 52.62 kg; Height 5 ft. ll1 4 in. ; Pain 9/10; 12:47 BP 138 / 117; Pulse 72; Pulse Ox 97% on R/A; MAP 124 mmHg; Pain 10/10; tm6 13:06 BP 150 / 75; Pulse 66; Pulse Ox 98% on R/A; MAP 98 mmHg; tm6 15:16 BP 157 / 90; Pulse 76; Resp 19; Temp 97.3; Pulse Ox 98% on R/A; MAP 109 mmHg; Pain 5/10;tm6 11:28 Body Mass Index 19.91 (52.62 kg, 162.56 cm) ll1 11:28 Pain Scale: Adult ll1 12:47 Pain Scale: Adult tm6 15:16 Pain Scale: Adult tm6 ED Course: 11:14 Patient arrived in ED. mr 11:22 Niranjan Chirinos MD is Attending Physician. bo1 11:27 Arm band placed on Patient placed in an exam room, on a stretcher. ll1 11:29 Triage completed. ll1 11:30 Patient has correct armband on for positive identification. Bed in low position. Call tm6 light in reach. Side rails up X 1. Provided Education on: use of call hernandez. Client placed on continuous cardiac and pulse oximetry monitoring. NIBP monitoring applied. Pulse ox on. NIBP on. Noise minimized. Warm blanket given. Pillow given. 11:50 Latonia Rushing, SANDY is Primary Nurse. tm6 12:10 Missed attempt(s): 22 gauge Bleeding controlled, band aid applied, catheter tip intact. ty 12:23 Inserted saline lock: 22 gauge in right antecubital area, using aseptic technique. ty Blood collected. Flushed with 10 mL NS. 12:25 BMP Sent. ty 12:25 CBC with Diff Sent. ty 14:23 CT Maxillofacial W/cont In Process Unspecified. EDMS 15:06 Rosi Vale MD is Referral Physician. bo1 15:19 No provider procedures requiring assistance completed. IV discontinued, intact, tm6 bleeding controlled, No redness/swelling at site. Pressure dressing applied. Administered Medications: 12:47 Drug: Ketorolac IVP 15 mg IVP once Route: IVP; Site: left antecubital; tm6 13:23 Follow up: Response: No adverse reaction tm6 12:47 Drug: Ondansetron IVP 4 mg IVP once; over 2 minutes Route: IVP; Site: left antecubital; tm6 13:23 Follow up: Response: No adverse reaction tm6 13:23 Drug: Potassium Chloride PO 40 mEq PO once Route: PO; tm6 15:20 Follow up: Response: No adverse reaction tm6 13:40 Drug: traMADol PO 50 mg PO once Route: PO; ld1 15:21 Follow up: Response: No adverse reaction tm6 Medication: 11:30 VIS not applicable for this client. tm6 Outcome: 15:07 Discharge ordered by . bo1 15:19 Discharged to home ambulatory, tm6 15:19 Condition: stable 15:19 Discharge instructions given to patient, Instructed on discharge instructions, follow up and referral plans. medication usage, Demonstrated understanding of instructions, follow-up care, medications, Prescriptions given X 1, 15:20 Patient left the ED. tm6 Signatures: Dispatcher [employer] EDKY Ivonne Cota, Reg Reg mr Zaira Zheng, RN RN ll1 Queenie Hamilton RN RN ld1 Latonia Rushing RN RN tm6 Fredi Cook Benjamin, MD MD bo1
--- NOTE | 2024-09-03 15:08 | EDPHYS ---
Physician Documentation [facility] Name: Milan Weir Age: 84 yrs Sex: Female : 1940 Arrival Date: 09/03/2024 Time: 11:11 Bed 6 Private MD: ED Physician Niranjan Chirinos HPI: 09/03 11:51 This 84 yrs old Female presents to ER via Ambulatory with complaints of Facial Swelling.bo1 11:51 Swollen chin and left side of the face/cheek - "painful". Onset: The symptoms/episode bo1 began/occurred gradually, 3 week(s) ago. 15:15 Severity of symptoms: At their worst the symptoms were mild. bo1 15:15 Pt points to the chin and left cheek. bo1 Historical: - Allergies: 11:27 Codeine; ll1 11:27 tramadol; ll1 11:27 Tylenol-Codeine; ll1 - PMHx: 11:27 Alzheimers; COPD; HARD OF HEARING; Hernia; Pancreatitis; ll1 - PSHx: 11:27 Adenoid excision; Appendectomy; breast implants; Cholecystectomy; double masectomy; ll1 stomach surgery to prevent vomiting; Tonsillectomy; Total abdominal hysterectomy; - Immunization history:: Adult Immunizations up to date. - Infectious Disease History:: Denies. - Social history:: Smoking status: Patient/guardian denies using tobacco, the patient reports quitting approximately 25 years ago. ROS: 15:16 Constitutional: Negative for fever, chills, and weight loss bo1 15:16 ENT: Positive for Chin fullness and pain to the left cheek, 15:16 Neck: Negative for pain with movement, pain at rest, swelling, 15:16 Cardiovascular: Negative for chest pain, palpitations, 15:16 Respiratory: Negative for cough, shortness of breath, 15:16 MS/extremity: Negative for acute changes, pain, swelling, 15:16 Skin: Negative for rash, Exam: 15:18 Constitutional: This is a well developed, well nourished patient who is awake, alert, bo1 and in no acute distress. Head/Face: Normocephalic, atraumatic. Mild pronounced chin... but appears WNL and symmetric 15:18 Constitutional: The patient appears in no acute distress, alert, awake, comfortable, 15:18 ENT: Voice: is normal, Tongue in the mid-line. No evidence of cheek asymmetry or salivary stone or glandular enlargement. 15:18 Neck: External neck: is normal, no acute changes, erythema, is not appreciated, Lymph nodes: no acute changes, Non palpable masses (not appreciated), 15:18 Cardiovascular: Rate: normal, Rhythm: regular, Pulses: no pulse deficits are appreciated, 15:18 Respiratory: the patient does not display signs of respiratory distress, Respirations: normal, Breath sounds: are clear throughout, 15:21 Skin: no rash present. bo1 Vital Signs: 11:28 BP 142 / 80; Pulse 69; Resp 16; Temp 97.3; Pulse Ox 99% ; Weight 52.62 kg; Height 5 ft. ll1 4 in. ; Pain 9/10; 12:47 BP 138 / 117; Pulse 72; Pulse Ox 97% on R/A; MAP 124 mmHg; Pain 10/10; tm6 13:06 BP 150 / 75; Pulse 66; Pulse Ox 98% on R/A; MAP 98 mmHg; tm6 15:16 BP 157 / 90; Pulse 76; Resp 19; Temp 97.3; Pulse Ox 98% on R/A; MAP 109 mmHg; Pain 5/10;tm6 11:28 Body Mass Index 19.91 (52.62 kg, 162.56 cm) ll1 11:28 Pain Scale: Adult ll1 12:47 Pain Scale: Adult tm6 15:16 Pain Scale: Adult tm6 MDM: 11:23 Medical Screening Exam initiated bo1 15:03 Differential Diagnosis Mass to the left neck; electrolyte abnl. Data reviewed: vital bo1 signs, lab test result(s), radiologic studies, CT scan. ED course: Pt did not have any adverse reactions to tramadol. She was requesting "demerol." This med was not given. The CT results appear to indicate a need to refer to ENT. ENT human resources compensation analyst is Dr Kavin HO. 09/03 11:46 Order name: CBC with Diff; Complete Time: 12:54 bo1 09/03 11:46 Order name: BMP; Complete Time: 12:54 bo1 09/03 13:52 Order name: CT Maxillofacial W/cont; Complete Time: 15:01 bo1 09/03 11:46 Order name: Saline Lock; Complete Time: 12:25 bo1 Administered Medications: 12:47 Drug: Ketorolac IVP 15 mg IVP once Route: IVP; Site: left antecubital; tm6 13:23 Follow up: Response: No adverse reaction tm6 12:47 Drug: Ondansetron IVP 4 mg IVP once; over 2 minutes Route: IVP; Site: left antecubital; tm6 13:23 Follow up: Response: No adverse reaction tm6 13:23 Drug: Potassium Chloride PO 40 mEq PO once Route: PO; tm6 15:20 Follow up: Response: No adverse reaction tm6 13:40 Drug: traMADol PO 50 mg PO once Route: PO; ld1 15:21 Follow up: Response: No adverse reaction tm6 Disposition Summary: 09/03/24 15:07 Discharge Ordered Notes: Location: Home bo1 Problem: new bo1 Symptoms: have improved bo1 Condition: Stable bo1 Diagnosis - Acute lymphadenitis, unspecified bo1 - Hypokalemia bo1 Followup: bo1 - With: Rosi Vale MD - When: Upon discharge from the Emergency Department - Reason: Recheck today's complaints, Continuance of care Followup: bo1 - With: Private Physician - When: Upon discharge from the Emergency Department - Reason: Recheck today's complaints, Continuance of care Discharge Instructions: - Discharge Summary Sheet bo1 - Hypokalemia bo1 Forms: - Medication Reconciliation Form bo1 - Antibiotic Education bo1 - Prescription Opioid Use bo1 - Patient Portal Instructions bo1 - Leadership Thank You Letter bo1 Prescriptions: - Potassium Chloride 20 meq Oral Packet - take 1 packet ORAL route once daily 1 packet in 6 (six) ounces of water or bo1 juice; Take after meal; 30 packet; Refills: 0, Product Selection Permitted Signatures: Dispatcher [employer] Zaira Lawson RN RN ll1 Queenie Hamilton RN RN ld1 Latonia Rushing RN RN tm6 Niranjan Chirinos MD MD bo1
[2024-09-03 16:25] VITALS: TEMP 97.3
[2024-09-03 16:28] VITALS: O2SAT 98
[2024-09-03 16:30] VITALS: BP 157/90
== END 2024-09-03 15:20 | disposition home or self-care (01) ==
LOC: ER 11:11
DX: L04.0 Acute lymphadenitis of face, head and neck (principal); E87.6 Hypokalemia; G30.9 Alzheimer's disease, unspecified; F02.80 Dementia in other diseases classified elsewhere, unspecified severity, without behavioral disturbance, psychotic disturbance, mood disturbance, and anxiety
CPT/HCPCS: 85025; 80048; 36415; 70487; 96375; 96374; 99284; Q9967; J2405

== ENCOUNTER 2024-09-05 11:27 | Emergency (ER) | payer OTHER, BC ==
--- OUTSIDE RECORDS SUMMARY | 2024-09-05 11:30 | XMS REPORT | Continuity of Care Document ---
Author Name Unknown Address [address] [place] [address] [facility] thconnect Address [address] [place] [address] Care Team Providers Care Switching Operator Name Role Phone PCP, PATIENT DOES NOT HAVE A Primary Care Physic padmini Unavailable Seamus Castro MD Attending Clinician [phone] [email or web address] Attending Clinician UnavailNIECY Barber Attending Clinician Unavailab Niecy Collazo DO Attending Clinician [phone] RADIOLOGY Attending Clinician Unavailable Radiology Attending Clinician Unavailable MIKHAIL HURTADO Attending Clinician Unavailab sil [email or web address] Admitting Clinician UnavailNIECY Barber Admitting Clinician Unavailab MEKA Ricks Admitting Clinician Unavailable MIKHAIL HURTADO Admitting Clinician Unavailab le Payers Payer Name Policy Type Policy Number Effective Date Expirati on Date Source MEDICARE PART A \T\ [id number] 2004 00:00:00 [employer] TRADITIONAL [id number] 2017 00:00:00 Problems Condition Name Condition Details Condition Category Status Onset Date Resolution Date Last Treatment Date Treating Clinician Comments Source No known active problems No known active problems Disease [facility] Allergies, Adverse Reactions, Alerts Allergy Name Allergy Type Status Severity Reaction(s) Onset Date Inactive Date Treating Clinician Comments Source CODEINE DRUG INGREDI Active N/V 09-18 00:00: 00 [facility] Codeine Propensi ty to adverse reaction s Active Nausea and/or Vomiting 09-18 00:00: 00 [facility] NO KNOWN ALLERGIE S Drug Class Active [facility] Social History Social Habit Start Date Stop Date Quantity Comments Source Gender identity 2023-11-25 02:02:51 Identifies as female gender (finding) [facility] History of tobacco use Current smoker [facility] Sexual orientation [facility] History of Social function 2023-12-11 00:00:00 2023-12-11 00:00:00 [facility] Exposure to SARS-CoV-2 (event) 2022-09-08 00:00:00 2022-09-18 09:01:00 Not sure [facility] Sex Assigned At 1940 00:00:00 1940 00:00:00 [facility] Smoking Status Start Date Stop Date Source Ex-smoker [facility] Tobacco smoking consumption unknown [facility] Medications Ordered Medication Name Filled Medication Name Start Date Stop Date Current Medication? Ordering Clinician Indication Dosage Frequency Signature (SIG) Comments Components Source mirtazapine (Remeron) 15 MG tablet mirtazapine (Remeron) 15 MG tablet 04-18 00:00: 00 Yes 15mg TAKE ONE (1) TABLET(S) BY MOUTH DAILY AT BEDTIME. Layton Garcia [facility] donepezil (Aricept) 5 MG tablet donepezil (Aricept) 5 MG tablet 2022-09 00:00: 00 Yes See Instructio ns, TAKE ONE (1) TABLET(S) BY MOUTH DAILY., # 30 ea, 3 Refill(s), Pharmacy: [facility], 162.56, cm, 06/14/23 9:48:00 CDT, Height, 61.023, kg, 06/14/23 9:48:00 CDT, Weight Layton Garcia [facility] memantine (Namenda) 5 MG tablet memantine [...] CAPSULE(S) BY MOUTH DAILY NEEDED. Darlinval jamar Rubyveronica Villaseñor No known medications 09-18 09:05: 08 No No known medication s [facility] gadoteridol (PROHANCE-1 5 mL) injection 0.2 mL/kg 2019-09 21:45: 00 08-12 22:15 :00 No .2mL/kg 0.2 mL/kg, Intravenou s, ONCE, 1 dose, Leni 08/12/20 at 1545, Routine [facility] Vital Signs Vital Name Observation Time Observation Value Comments S ource Heart rate 2022-09-18 16:44:00 62 /min [facility] Respiratory rate 2022-09-18 16:44:00 20 /min [facility] Oxygen saturation in Arterial blood by Pulse oximetry 2022-09-18 16:44:00 99 /min [facility] Systolic blood pressure 2022-09-18 16:00:18 153 mm[Hg] [facility] Diastolic blood pressure 2022-09-18 16:00:18 86 mm[Hg] [facility] Body temperature 2022-09-18 15:03:00 36.89 Keesha [facility] Body height 2022-09-18 15:03:00 160 cm [facility] Body weight 2022-09-18 15:03:00 53.524 kg [facility] BMI 2022-09-18 15:03:00 20.90 kg/m2 [facility] Procedures Procedure Date / Time Performed Performing Clinicia n Source CT TRAUMA HEAD WO CONTRAST 2022-09-18 15:55:32 Niecy Ball [facility] CT TRAUMA CERVICAL SPINE WO CONTRAST 2022-09-18 15:55:32 Niecy Ball [facility] XR SHOULDER <2 VW LEFT 2022-09-18 15:40:40 Ashley Ball [facility] NOTICE OF PRIVACY PRACTICES 2022-09-18 14:59:10 Doctor Unassigned, Krupp [facility] CONSENT/REFUSAL FOR DIAGNOSIS AND TREATMENT 2022-09-18 14:58:45 Doctor Unassigned, Krupp [facility] MR ABDOMEN W WO CONTRAST MRCP 2020-08-12 22:16:07 Requisition, Paper [facility] NOTICE OF PRIVACY PRACTICES 2020-08-12 21:10:37 Doctor Unassigned, Krupp [facility] CONSENT/REFUSAL FOR DIAGNOSIS AND TREATMENT 2020-08-12 21:10:07 Doctor Unassigned, Krupp [facility] ASSIGNMENT OF BENEFITS 2020-08-12 21:09:46 Docto r Unassigned, Krupp [facility] Encounters Start Date/Time End Date/Time Encounter Type Admission Type Attending [facility] Care Department Encounter ID Source 2024-04-17 00:00:00 2024-04-18 10:18:36 Seamus Patel [id number] Layton Garcia [facility] 2023-07-03 00:00:00 2023-07-03 00:00:00 Outpatient [email or web address] PRIV PRIV [id number] [facility] 2023-07-02 00:00:00 2023-07-02 00:00:00 Outpatient [email or web address] PRIV PRIV [id number] [facility] 2022-09-18 09:05:00 2022-09-18 10:46:00 Emergency X NIECY BALL [facility] ERT [id number] [facility] 2022-09-18 09:05:00 2022-09-18 10:46:00 Emergency Niecy Ball [facility] [id number] [facility] 2020-08-12 15:11:31 2020-08-12 23:59:00 Outpatient R RADIOLOGY [facility] [id number] [facility] 2020-08-12 15:00:00 2020-08-12 23:59:00 Hospital Encounter Radiology [facility] [id number] [facility] 2020-08-12 15:00:00 2020-08-12 23:59:00 Hospital Encounter Radiology [facility] [id number] Results Test Description Test Time Test Comments [...] without and with contrast including MRCP studies. [facility], Radiant Results Inft User - [...] without and with contrast including [facility] studies[facility] [id number] 09:33:00* Test Item Value Reference Range Interpretation [...] assessment and management of chronic kidney failure. [facility]
[2024-09-05] MEDS ORDERED: NA CHLORIDE 0.9% 1,000 ML ONE (12:58)
[2024-09-05 13:17] LABS: Absolute Eosinophils 0.3 K/uL (0-0.5); Absolute Lymphocytes (CBC) 1.3 K/uL (0.7-4.9); Absolute Monocytes 0.5 K/uL (0.1-1.3); Absolute Neutrophil 5.5 K/uL (1.8-8.0); Basophils % 0.4 % (0-1.3); Eosinophils % 3.4 % (0-4.4); Hematocrit 35.6 % (36.0-45.0); Hemoglobin 12.3 g/dL (12.0-15.0); Lymphocytes % 17.5 % (15.3-44.8); MCH 31.6 pg (27.0-35.0); MCHC 34.7 g/dL (32.0-36.0); MCV 91.1 fL (80-100); MPV 7.2 fL (7.6-11.3); Monocytes % 6.6 % (3.3-12.3); Neutrophils % 72.1 % (41.7-73.7); Platelets 277 thou/uL (152-406); RBC Red Blood Cell Count 3.91 M/uL (3.86-4.86); Red Cell Distribution Width 13.6 % (12.1-15.2)
[2024-09-05 13:39] LABS: AST/SGOT 11 U/L (15-37); Albumin/Globulin Ratio 0.9 (1.1-1.8); Alkaline Phosphatase 70 U/L (45-117); Anion Gap 9.4 mEq/L (5.0-15.0); BUN Blood Urea Nitrogen 6 mg/dL (7-18); Bicarbonate 30 mEq/L (21-32); Bilirubin Total 0.9 mg/dL (0.2-1.0); Globulin 3.4 g/dL (2.3-3.5); Glomerular Filtration Rate 68 ml/min (=/>90); Glucose Level 96 mg/dL (74-106); Protein, Total 6.4 g/dL (6.4-8.2); Sodium Level 137 mEq/L (136-145)
[2024-09-05 13:41] LABS: ALT/SGPT < 14 U/L (13-56)
[2024-09-05 13:44] LABS: Potassium 2.4 mEq/L (3.5-5.1)
[2024-09-05] MEDS ORDERED: POTASSIUM 25 MEQ EFFERV TAB ONE (14:19)
--- NOTE | 2024-09-05 14:21 | EDPHYS ---
Physician Documentation [facility] Name: Milan Weir Age: 84 yrs Sex: Female : 1940 Arrival Date: 09/05/2024 Time: 11:27 Bed 10 Private MD: RASHAAD Physician Sean Seymour HPI: 09/05 14:16 This 84 yrs old Female presents to ER via Ambulatory with complaints of nargis Swollen Glands. 14:16 The patient or guardian complains of pain. The symptoms are located on the neck. Onset: nargis The symptoms/episode began/occurred 1 week(s) ago. Context: The problem was sustained at an unknown location, The neck injury/problem resulted from HX KNOWN ADENOPATHY. Associated signs and symptoms: The patient has no apparent associated signs or symptoms. The pain does not radiate. Severity of symptoms: At their worst the symptoms were. The patient has experienced similar episodes in the past, a few times. Historical: - Allergies: 11:59 Codeine; iw 11:59 tramadol; iw 11:59 Tylenol-Codeine; iw - PMHx: 11:59 Alzheimers; COPD; HARD OF HEARING; Hernia; Pancreatitis; iw - PSHx: 11:59 Appendectomy; Adenoid excision; breast implants; Cholecystectomy; double masectomy; iw stomach surgery to prevent vomiting; Tonsillectomy; Total abdominal hysterectomy; - Immunization history:: Adult Immunizations not up to date. - Infectious Disease History:: Denies. - Social history:: Smoking status: Patient denies any tobacco usage or history of. - Family history:: not pertinent. ROS: 14:16 Constitutional: Negative for fever, chills, and weight loss, Eyes: Negative for injury, nargis pain, redness, and discharge, ENT: Negative for injury, pain, and discharge, Cardiovascular: Negative for chest pain, palpitations, and edema, Respiratory: Negative for shortness of breath, cough, wheezing, and pleuritic chest pain, Abdomen/GI: Negative for abdominal pain, nausea, vomiting, diarrhea, and constipation, Back: Negative for injury and pain, : Negative for injury, bleeding, discharge, and swelling, MS/Extremity: Negative for injury and deformity, Skin: Negative for injury, rash, and discoloration, Neuro: Negative for headache, weakness, numbness, tingling, and seizure, Psych: Negative for depression, anxiety, suicide ideation, homicidal ideation, and hallucinations, Allergy/Immunology: Negative for hives, rash, and allergies, Endocrine: Negative for neck swelling, polydipsia, polyuria, polyphagia, and marked weight changes, Hematologic/Lymphatic: Negative for swollen nodes, abnormal bleeding, and unusual bruising, 14:16 Neck: Positive for pain at rest, swollen nodes, Exam: 14:16 Constitutional: This is a well developed, well nourished patient who is awake, alert, nargis and in no acute distress. Head/Face: Normocephalic, atraumatic. Eyes: Pupils equal round and reactive to light, extra-ocular motions intact. Lids and lashes normal. Conjunctiva and sclera are non-icteric and not injected. Cornea within normal limits. Periorbital areas with no swelling, redness, or edema. ENT: Nares patent. No nasal discharge, no septal abnormalities noted. Tympanic membranes are normal and external auditory canals are clear. Oropharynx with no redness, swelling, or masses, exudates, or evidence of obstruction, uvula midline. Mucous membranes moist. Chest/axilla: Normal chest wall appearance and motion. Nontender with no deformity. No lesions are appreciated. Cardiovascular: Regular rate and rhythm with a normal S1 and S2. No gallops, murmurs, or rubs. Normal PMI, no JVD. No pulse deficits. Respiratory: Lungs have equal breath sounds bilaterally, clear to auscultation and percussion. No rales, rhonchi or wheezes noted. No increased work of breathing, no retractions or nasal flaring. Abdomen/GI: Soft, non-tender, with normal bowel sounds. No distension or tympany. No guarding or rebound. No evidence of tenderness throughout. Back: No spinal tenderness. No costovertebral tenderness. Full range of motion. Skin: Warm, dry with normal turgor. Normal color with no rashes, no lesions, and no evidence of cellulitis. MS/ Extremity: Pulses equal, no cyanosis. Neurovascular intact. Full, normal range of motion., bilateral aka Neuro: Awake and alert, GCS 15, oriented to person, place, time, and situation. Cranial nerves II-XII grossly intact. Motor strength 5/5 in all extremities. Sensory grossly intact. Cerebellar exam normal. Normal gait. Psych: Awake, alert, with orientation to person, place and time. Behavior, mood, and affect are within normal limits. 14:16 Neck: External neck: is normal, ROM/movement: is normal, no acute changes, Lymph nodes: lymphadenopathy is appreciated, anterior cervical nodes, posterior cervical nodes, Vital Signs: 11:58 BP 125 / 73; Pulse 69; Resp 18; Temp 97.9; Pulse Ox 94% on R/A; Weight 52.62 kg; Height iw 5 ft. 4 in. ; 13:19 BP 131 / 79; Pulse 71; Resp 18; Pulse Ox 96% on R/A; ld1 11:58 Body Mass Index 19.91 (52.62 kg, 162.56 cm) iw MDM: 11:42 Medical Screening Exam initiated nargis 14:19 Differential diagnosis: arthritis, Cervical Raiculopathy cervical strain, Neck nargis Contusion. Data reviewed: vital signs, nurses notes, lab test result(s), radiologic studies, CT scan. Consideration of Admission/Observation Escalation of care including admission/observation considered. I considered the following discharge prescriptions or medication management in the emergency department Medications were administered in the Emergency Department. See MAR. Independent interpretation of the following test(s) in the Emergency Department CT Scan: My interpretation is SEE CT 09/03/24. Test considered but Not performed: Ultrasound NO USG. Historians other than the Patient: PT WELL INFORMED. Care significantly affected by the following chronic conditions: Hypertension, Chronic Obstructive Pulmonary Disease. 09/05 12:14 Order name: CBC with Diff; Complete Time: 13:58 [facility] 09/05 12:14 Order name: Comprehensive Metabolic Panel; Complete Time: 13:58 [facility] 09/05 14:01 Order name: Phosphorus nargis Administered Medications: 13:17 Drug: NS 0.9% IV 500 ml 500 ml IV at 1 bolus once; to be given as a bolus over 30 ld1 minutes Volume: 500 ml; Route: IV; Rate: 1 bolus; Site: right antecubital; 13:34 Follow up: Response: No adverse reaction; IV Status: Completed infusion; IV Intake: ld1 500ml 14:15 Not Given (Patient Refused): potassium meq IV at per protocol once; iw administer over 1-2 hours 14:17 Not Given (Patient Refused): ns 0.9% with kcl20 meq/l 1000 ml IV at 125 ml/hr continuousiw 14:20 Drug: Potassium PO Effervescent Tablet 50 mEq PO once; dissolve in 4 ounces of water or iw juice Route: PO; Disposition Summary: 09/05/24 14:21 Discharge Ordered Notes: Location: Home nargis Problem: new nargis Symptoms: have improved nargis Condition: Stable nargis Diagnosis - Localized enlarged lymph nodes nargis - Enlarged lymph nodes, unspecified nargis - Hypokalemia nargis Followup: nargis - With: Private Physician - When: 2 - 3 days - Reason: Recheck today's complaints, Continuance of care, Re-evaluation by your physician Followup: nargis - With: Rosi Vale MD - When: 2 - 3 days - Reason: Recheck today's complaints, Re-evaluation by your physician Discharge Instructions: - Discharge Summary Sheet nargis - Potassium Content of Foods nargis - Hypokalemia nargis - Lymphadenopathy nargis Forms: - Medication Reconciliation Form nargis - Antibiotic Education nargis - Prescription Opioid Use nargis - Patient Portal Instructions [facility] - Leadership Thank You Letter [facility] Prescriptions: - Augmentin 875-125 mg Oral Tablet - take 1 tablet ORAL route every 12 hours for 10 days; 20 tablet; Refills: 0, [facility] Product Selection Permitted - Potassium Chloride 20 meq Oral Packet - take 1 packet ORAL route every 12 hours 1 packet in 6 (six) ounces of water or nargis juice; Take after meal; 20 packet; Refills: 0, Product Selection Permitted Signatures: Dispatcher [employer] EDSean Everett MD MD cha Williams, Irene, RN RN Queenie Montejo RN RN ld1 Corrections: (The following items were deleted from the chart) 12:15 12:15 CBC+H.LAB.BRZ ordered. EDMS EDMS 12:15 12:15 COMPREHENSIVE METABOLIC PANEL+C.LAB.BRZ ordered. EDMS EDMS 12:15 12:15 Soft Tissue Neck W/Contr+CT.RAD.BRZ ordered. EDMS EDMS
--- NOTE | 2024-09-05 14:21 | ER ---
Nurse's Notes [facility] Name: Milan Weir Age: 84 yrs Sex: Female : 1940 Arrival Date: 09/05/2024 Time: 11:27 Bed 10 Private MD: Diagnosis: Localized enlarged lymph nodes;Enlarged lymph nodes, unspecified;Hypokalemia Presentation: 09/05 11:57 Chief complaint: Patient states: left side of neck is swollen , was seen here and iw prescribed antibiotics. Coronavirus screen: At this time, the client does not indicate any symptoms associated with coronavirus-19. Ebola Screen: No symptoms or risks identified at this time. Initial Sepsis Screen: Does the patient meet any 2 criteria? No. Patient's initial sepsis screen is negative. Does the patient have a suspected source of infection? No. Patient's initial sepsis screen is negative. Risk Assessment: Do you want to hurt yourself or someone else? Patient reports no desire to harm self or others. 11:57 Method Of Arrival: Ambulatory iw 11:57 Acuity: JARRETT 3 iw 11:58 Onset of symptoms was August 30, 2024. iw Historical: - Allergies: 11:59 Codeine; iw 11:59 tramadol; iw 11:59 Tylenol-Codeine; iw - PMHx: 11:59 Alzheimers; COPD; HARD OF HEARING; Hernia; Pancreatitis; iw - PSHx: 11:59 Appendectomy; Adenoid excision; breast implants; Cholecystectomy; double masectomy; iw stomach surgery to prevent vomiting; Tonsillectomy; Total abdominal hysterectomy; - Immunization history:: Adult Immunizations not up to date. - Infectious Disease History:: Denies. - Social history:: Smoking status: Patient denies any tobacco usage or history of. - Family history:: not pertinent. Screenin:19 [facility] ED Fall Risk Assessment (Adult) History of falling in the last 3 months, ld1 including since admission No falls in past 3 months (0 pts) Confusion or Disorientation No (0 pts) Intoxicated or Sedated No (0 pts) Impaired Gait No (0 pts) Mobility Assist Device Used No (0 pt) Altered Elimination No (0 pt) Score/Fall Risk Level 0 - 2 = Low Risk Oriented to surroundings, Maintained a safe environment, Educated pt \T\ family on fall prevention, incl call for assistance when getting out of bed, Assessed \T\ reinforced patient's understanding of fall precautions, Provided non-skid footwear, Hourly rounding (assess needs \T\ fall precautionary measures) done, Used ambulatory aids as needed (educated on \T\ assisted with), Used gait belt as appropriate. Abuse screen: Denies threats or abuse. Denies injuries from another. Nutritional screening: No deficits noted. Tuberculosis screening: No symptoms or risk factors identified. Assessment: 13:19 General: Appears in no apparent distress. comfortable, Behavior is calm, cooperative, ld1 appropriate for age. Pain: Complains of pain in neck Pain does not radiate. Pain currently is 7 out of 10 on a pain scale. Quality of pain is described as throbbing. Neuro: Level of Consciousness is awake, alert, obeys commands, Oriented to person, place, time, situation, Appropriate for age. Cardiovascular: Capillary refill < 3 seconds Patient's skin is warm and dry. Respiratory: Airway is patent Respiratory effort is even, unlabored. GI: Abdomen is flat, non-distended. : No signs and/or symptoms were reported regarding the genitourinary system. EENT: No signs and/or symptoms were reported regarding the EENT system. Derm: No signs and/or symptoms reported regarding the dermatologic system. Musculoskeletal: No signs and/or symptoms reported regarding the musculoskeletal system. 14:17 Reassessment: pt requesting to be let go, does not want to stay for IV potassium, pt iw removed her own IV. 14:27 Reassessment: Patient appears in no apparent distress at this time. Vital Signs: 11:58 BP 125 / 73; Pulse 69; Resp 18; Temp 97.9; Pulse Ox 94% on R/A; Weight 52.62 kg; Height iw 5 ft. 4 in. ; 13:19 BP 131 / 79; Pulse 71; Resp 18; Pulse Ox 96% on R/A; ld1 11:58 Body Mass Index 19.91 (52.62 kg, 162.56 cm) ED Course: 11:41 Patient arrived in ED. sj2 11:42 Sean Seymour MD is Attending Physician. nargis 11:58 Triage completed. iw 11:59 Arm band placed on. iw 12:39 Queenie Hamilton, SANDY is Primary Nurse. ld1 13:17 Comprehensive Metabolic Panel Sent. ld1 13:17 CBC with Diff Sent. ld1 13:17 Inserted saline lock: 20 gauge in right antecubital area, using aseptic technique. ld1 Blood collected. Flushed with 10 mL NS. 13:17 Missed attempt(s): 22 gauge Bleeding controlled, band aid applied, catheter tip intact. kb4 13:19 Patient has correct armband on for positive identification. Placed in gown. Bed in low ld1 position. Call light in reach. Side rails up X2. monitoring analyst on. Pulse ox on. NIBP on. Door closed. Noise minimized. Warm blanket given. 13:19 No provider procedures requiring assistance completed. ld1 14:20 Rosi Vale MD is Referral Physician. nargis 14:27 IV discontinued, intact, bleeding controlled, No redness/swelling at site. Pressure iw dressing applied. 14:28 Provided Education on: . iw Administered Medications: 13:17 Drug: NS 0.9% IV 500 ml 500 ml IV at 1 bolus once; to be given as a bolus over 30 ld1 minutes Volume: 500 ml; Route: IV; Rate: 1 bolus; Site: right antecubital; 13:34 Follow up: Response: No adverse reaction; IV Status: Completed infusion; IV Intake: ld1 500ml 14:15 Not Given (Patient Refused): potassium xadryccd30 meq IV at per protocol once; iw administer over 1-2 hours 14:17 Not Given (Patient Refused): ns 0.9% with kcl20 meq/l 1000 ml IV at 125 ml/hr continuousiw 14:20 Drug: Potassium PO Effervescent Tablet 50 mEq PO once; dissolve in 4 ounces of water or iw juice Route: PO; Medication: 13:19 VIS not applicable for this client. VIS not applicable for this client. ld1 Intake: 13:34 IV: 500ml; Total: 500ml. ld1 Outcome: 14:21 Discharge ordered by . nargis 14:27 Discharged to home ambulatory, iw 14:27 Condition: good 14:27 Discharge instructions given to patient, Instructed on discharge instructions, follow up and referral plans. medication usage, Demonstrated understanding of instructions, follow-up care, medications, Prescriptions given X 2, 14:31 Patient left the ED. iw Signatures: Sean Seymour MD MD cha Williams, Irene, SANDY RN iw Queenie Hamiltno RN RN ld1 Lena, Dexter sj2 Cindy Jimenez kb4
[2024-09-05 15:26] VITALS: TEMP 97.9
[2024-09-05 15:29] VITALS: BP 131/79; O2SAT 96
== END 2024-09-05 14:31 | disposition home or self-care (01) ==
LOC: ER 11:27
DX: R59.0 Localized enlarged lymph nodes (principal); E87.6 Hypokalemia; G30.9 Alzheimer's disease, unspecified; F02.80 Dementia in other diseases classified elsewhere, unspecified severity, without behavioral disturbance, psychotic disturbance, mood disturbance, and anxiety
CPT/HCPCS: 85025; 36415; 84100; 80053; 99285; J7030

== ENCOUNTER 2024-09-11 08:44 | Emergency (ER) | payer OTHER, BC ==
--- OUTSIDE RECORDS SUMMARY | 2024-09-11 08:47 | XMS REPORT | Continuity of Care Document ---
Author Name Unknown Address [address] [place] [address] [facility] thconnect Address [address] [place] [address] Care Team Providers Care Environmental Sampler Name Role Phone PCP, PATIENT DOES NOT HAVE A Primary Care Physic padminitristin Castro MD, Seamus Pyle Attending Clinician [phone] [email or web address] Attending Clinician UnavailNIECY Barber Attending Clinician Unavailab Niecy Collazo DO Attending Clinician [phone] RADIOLOGY Attending Clinician Unavailable Radiology Attending Clinician Unavailable MIKHAIL HURTADO Attending Clinician Unavailab sil [email or web address]_S Admitting Clinician UnavailNIECY Barber Admitting Clinician Unavailab MEKA Ricks Admitting Clinician Unavailable MIKHAIL HURTADO Admitting Clinician Unavailab le Payers Payer Name Policy Type Policy Number Effective Date Expirati on Date Source MEDICARE PART A \T\ B [id number] 2004 00:00:00 [employer] TRADITIONAL [id number] 2017 00:00:00 Problems Condition Name Condition Details Condition Category Status Onset Date Resolution Date Last Treatment Date Treating Clinician Comments Source No known active problems No known active problems Disease [facility] Allergies, Adverse Reactions, Alerts Allergy Name Allergy Type Status Severity Reaction(s) Onset Date Inactive Date Treating Clinician Comments Source CODEINE DRUG INGREDI Active N/V 09-18 00:00: 00 [facility] Codeine Propensi ty to adverse reaction s Active Nausea and/or Vomiting 09-18 00:00: 00 [facility] NO KNOWN ALLERGIE S Drug Class Active [facility] Social History Social Habit Start Date Stop Date Quantity Comments Source Gender identity 2023-11-25 02:02:51 Identifies as female gender (finding) [facility] History of tobacco use Current smoker [facility] Sexual orientation [facility] History of Social function 2023-12-11 00:00:00 2023-12-11 00:00:00 [facility] Exposure to SARS-CoV-2 (event) 2022-09-08 00:00:00 2022-09-18 09:01:00 Not sure [facility] Sex Assigned At 1940 00:00:00 1940 00:00:00 [facility] Smoking Status Start Date Stop Date Source Ex-smoker [facility] Tobacco smoking consumption unknown [facility] Medications Ordered Medication Name Filled Medication Name Start Date Stop Date Current Medication? Ordering Clinician Indication Dosage Frequency Signature (SIG) Comments Components Source mirtazapine (Remeron) 15 MG tablet mirtazapine (Remeron) 15 MG tablet 04-18 00:00: 00 Yes 15mg TAKE ONE (1) TABLET(S) BY MOUTH DAILY AT BEDTIME. Layton Garcia [facility] donepezil (Aricept) 5 MG tablet donepezil (Aricept) 5 MG tablet 2022-09 00:00: 00 Yes See Instructio ns, TAKE ONE (1) TABLET(S) BY MOUTH DAILY., # 30 ea, 3 Refill(s), Pharmacy: [id number], 162.56, cm, 06/14/23 9:48:00 CDT, Height, 61.023, kg, 06/14/23 9:48:00 CDT, Weight Layton roldan Jose [facility] memantine (Namenda) 5 MG tablet memantine (Namenda) 5 MG tablet 2022-09 00:00: 00 Yes See Instructdelicia hauser, TAKE ONE (1) TABLET(S) BY MOUTH TWICE A DAY., # 60 ea, 3 Refill(s), Pharmacy: [id number], 162.56, cm, 06/14/23 9:48:00 CDT, Height, 61.023, kg, 06/14/23 9:48:00 CDT, Weight Layton jamar Melberveronica Villaseñor omeprazole (PriLOSEC) [address] capsule omeprazole (PriLOSEC) [address] capsule 02-08 00:00: 00 Yes TAKE ONE (1) CAPSULE(S) BY MOUTH DAILY NEEDED. Darlinval jamar Melberveronica Villaseñor No known medications 09-18 09:05: 08 No No known medication s [facility] gadoteridol (PROHANCE-1 5 mL) injection 0.2 mL/kg 2019-09 21:45: 00 08-12 22:15 :00 No .2mL/kg 0.2 mL/kg, Intravenou s, ONCE, 1 dose, Leni 08/12/20 at 1545, Routine [facility] Vital Signs Vital Name Observation Time Observation Value Comments S ource Heart rate 2022-09-18 16:44:00 62 /min [facility] Respiratory rate 2022-09-18 16:44:00 20 /min [facility] Oxygen saturation in Arterial blood by Pulse oximetry 2022-09-18 16:44:00 99 /min [facility] Systolic blood pressure 2022-09-18 16:00:18 153 mm[Hg] [facility] Diastolic blood pressure 2022-09-18 16:00:18 86 mm[Hg] [facility] Body temperature 2022-09-18 15:03:00 36.89 Keesha [facility] Body height 2022-09-18 15:03:00 160 cm [facility] Body weight 2022-09-18 15:03:00 53.524 [facility] BMI 2022-09-18 15:03:00 20.90 kg/m2 [facility] Procedures Procedure Date / Time Performed Performing Clinicia n Source CT TRAUMA HEAD WO CONTRAST 2022-09-18 15:55:32 Niecy Ball [facility] CT TRAUMA CERVICAL SPINE WO CONTRAST 2022-09-18 15:55:32 Niecy Ball [facility] XR SHOULDER <2 VW LEFT 2022-09-18 15:40:40 Ashley Ball [facility] NOTICE OF PRIVACY PRACTICES 2022-09-18 14:59:10 Doctor Unassigned, [place] [facility] CONSENT/REFUSAL FOR DIAGNOSIS AND TREATMENT 2022-09-18 14:58:45 Doctor Unassigned, [place] [facility] MR ABDOMEN W WO CONTRAST MRCP 2020-08-12 22:16:07 Requisition, Paper [facility] NOTICE OF PRIVACY PRACTICES 2020-08-12 21:10:37 Doctor Unassigned, [place] [facility] CONSENT/REFUSAL FOR DIAGNOSIS AND TREATMENT 2020-08-12 21:10:07 Doctor Unassigned, [place] [facility] ASSIGNMENT OF BENEFITS 2020-08-12 21:09:46 Docto r Unassigned, [place] [facility] Encounters Start Date/Time End Date/Time Encounter Type Admission Type Attending [facility] Care Department Encounter ID Source 2024-04-17 00:00:00 2024-04-18 10:18:36 Seamus Patel [id number] Layton Garcia [facility] 2023-07-03 00:00:00 2023-07-03 00:00:00 Outpatient [email or web address]_S PRIV PRIV [id number] [facility] 2023-07-02 00:00:00 2023-07-02 00:00:00 Outpatient [email or web address] [email or web address]_S PRIV PRIV [id number] [facility] 2022-09-18 09:05:00 2022-09-18 10:46:00 Emergency X NIECY BALL [facility] ERT [id number] [facility] 2022-09-18 09:05:00 2022-09-18 10:46:00 Emergency Niecy Ball [facility] [id number] [facility] 2020-08-12 15:11:31 2020-08-12 23:59:00 Outpatient R RADIOLOGY [facility] [id number] [facility] 2020-08-12 15:00:00 2020-08-12 23:59:00 Hospital Encounter Radiology [facility] [id number] 2020-08-12 15:00:00 2020-08-12 23:59:00 Hospital Encounter Radiology [facility] [id number] [facility] Results Test Description Test Time Test [...] without and with contrast including MRCP studies. [facility], Radiant Results Inft User - [...] without and with contrast including [facility] studies. [facility] [id number] 09:33:00* Test Item Value Reference Range Interpretation [...] assessment and management of chronic kidney failure. [facility]
[2024-09-11] MEDS ORDERED: ONDANSETRON 4 MG/2 ML VIAL ONE (09:48)
[2024-09-11] MEDS ORDERED: NA CHLORIDE 0.9% 1,000 ML ONE (09:48)
--- NOTE | 2024-09-11 11:04 | EDPHYS ---
Physician Documentation [facility] Name: Milan Weir Age: 84 yrs Sex: Female : 1940 Arrival Date: 09/11/2024 Time: 08:44 Bed 15 Private MD: ED Physician Joanne Louis HPI: 09/11 10:59 This 84 yrs old Female presents to ER via EMS with complaints of gb1 Nausea/Vomiting. 10:59 Ms. Chin is an 84-year-old female presents for nausea, no vomiting. She gb1 denies any falls or any diarrhea. She denies any fever, abdominal pain, new urinary symptoms or chills. She has history of Alzheimer's, COPD, hernia and pancreatitis. She started with nausea early this morning and she has not eaten since ED arrival.. Historical: - Allergies: 08:54 Codeine; ko1 08:54 tramadol; ko1 08:54 Tylenol-Codeine; ko1 - Home Meds: 08:54 Unable to obtain [Active]; ko1 - PMHx: 08:54 Alzheimers; COPD; HARD OF HEARING; Hernia; Pancreatitis; ko1 - PSHx: 08:54 Adenoid excision; Appendectomy; breast implants; Cholecystectomy; double masectomy; ko1 stomach surgery to prevent vomiting; Tonsillectomy; Total abdominal hysterectomy; - Immunization history:: Adult Immunizations unknown. - Infectious Disease History:: Denies. - Social history:: Smoking status: Patient/guardian denies using tobacco, but has a distant history of tobacco abuse. Exam: 10:59 Constitutional: This is a well developed, well nourished patient who is awake, alert, gb1 and in no acute distress. Head/Face: Normocephalic, atraumatic. Eyes: Pupils equal round and reactive to light, extra-ocular motions intact. Lids and lashes normal. Conjunctiva and sclera are non-icteric and not injected. Cornea within normal limits. Periorbital areas with no swelling, redness, or edema. ENT: Nares patent. No nasal discharge, no septal abnormalities noted. Tympanic membranes are normal and external auditory canals are clear. Oropharynx with no redness, swelling, or masses, exudates, or evidence of obstruction, uvula midline. Mucous membranes moist. Neck: Trachea midline, no thyromegaly or masses palpated, and no cervical lymphadenopathy. Supple, full range of motion without nuchal rigidity, or vertebral point tenderness. No Meningismus. Chest/axilla: Normal chest wall appearance and motion. Nontender with no deformity. No lesions are appreciated. Cardiovascular: Regular rate and rhythm with a normal S1 and S2. No gallops, murmurs, or rubs. Normal PMI, no JVD. No pulse deficits. Respiratory: Lungs have equal breath sounds bilaterally, clear to auscultation and percussion. No rales, rhonchi or wheezes noted. No increased work of breathing, no retractions or nasal flaring. Abdomen/GI: Soft, non-tender, with normal bowel sounds. No distension or tympany. No guarding or rebound. No evidence of tenderness throughout. Skin: Warm, dry with normal turgor. Normal color with no rashes, no lesions, and no evidence of cellulitis. MS/ Extremity: Pulses equal, no cyanosis. Neurovascular intact. Full, normal range of motion. Neuro: Awake and alert, GCS 15, oriented to person, place, time, and situation. Cranial nerves II-XII grossly intact. Motor strength 5/5 in all extremities. Sensory grossly intact. Cerebellar exam normal. Normal gait. Vital Signs: 08:49 BP 156 / 106; Pulse 79; Resp 17; Temp 97.2; Pulse Ox 96% on R/A; ko1 MDM: 09:32 Medical Screening Exam initiated gb1 10:59 ED course: Ms. Chin is an 84-year-old female that presents with nausea. gb1 She on exam had a very benign abdominal exam. I doubt acute appendicitis, pancreatitis or acute cholecystitis. I did order abdominal belly labs on Ms. Chin but she refused lab draw today. She became very agitated after her daughter visited her here at the bedside, and eloped from the room 15 here in the emergency department. She walked straight out of the emergency department doors and outside. She was able to return on her own with the help of ER staff. Patient requested that we call her daughter so that she could leave by car from the emergency department back home. At this time she is awake alert and able to make decisions and has capacity to do so. I did talk with the patient's daughter Gay by phone and she will be here to pick the patient up. I have also given the patient and her daughter explicit return precautions to which they both compliant to prior to discharge home today.. 09/11 09:33 Order name: Labs collected and sent; Complete Time: 11:00 gb1 Administered Medications: 10:59 Not Given (Patient Refused): ondansetron 4 mg IVP once; over 2 minutes cm10 10:59 Not Given (Patient Refused): ns 0.9% 1000 ml IV at 1 bolus Per protocol; to be given as cm10 a bolus over 60 minutes Disposition Summary: 09/11/24 11:03 Discharge Ordered Notes: Location: Home gb1 Problem: new gb1 Symptoms: have improved gb1 Condition: Stable gb1 Diagnosis - Nausea gb1 Followup: gb1 - With: Burak Pino MD - When: 2 - 3 days - Reason: If symptoms return, Re-evaluation by your physician Discharge Instructions: - Discharge Summary Sheet gb1 - Nausea, Adult gb1 Forms: - Medication Reconciliation Form gb1 - Antibiotic Education gb1 - Prescription Opioid Use gb1 - Patient Portal Instructions gb1 - Leadership Thank You Letter gb1 Prescriptions: - Zofran 4 mg Oral Tablet - take 1 tablet ORAL route every 12 hours As needed; 20 tablet; Refills: 0, gb1 Product Selection Permitted Signatures: Dispatcher [employer] Kayla Maloney, RN RN ko1 Joanne Louis MD MD gb1 Kate Vargas RN cm10 Corrections: (The following items were deleted from the chart) 09:33 09:33 CBC+H.LAB.BRZ ordered. EDMS EDMS 09:33 09:33 COMPREHENSIVE METABOLIC PANEL+C.LAB.BRZ ordered. EDMS EDMS 09:33 09:33 LIPASE+C.LAB.BRZ ordered. EDMS EDMS 09:33 09:33 Urinalysis+U.LAB.BRZ ordered. EDMS EDMS 11:00 09:33 IV Saline Lock ordered. gb1 cm10
--- NOTE | 2024-09-11 11:04 | ER ---
Nurse's Notes [facility] Name: Milan Weir Age: 84 yrs Sex: Female : 1940 Arrival Date: 09/11/2024 Time: 08:44 Bed 15 Private MD: Diagnosis: Nausea Presentation: 09/11 08:49 Chief complaint: EMS states: initially toned out for SI, however patient does not want ko1 to commit suicide she just wants to naturally. She has a lot of family issues and is tired of being nauseated and throwing up. Blood pressure was elevated also. Coronavirus screen: At this time, the client does not indicate any symptoms associated with coronavirus-19. Ebola Screen: No symptoms or risks identified at this time. Initial Sepsis Screen: Does the patient meet any 2 criteria? No. Patient's initial sepsis screen is negative. Does the patient have a suspected source of infection? No. Patient's initial sepsis screen is negative. Risk Assessment: Do you want to hurt yourself or someone else? Patient reports no desire to harm self or others. Onset of symptoms is unknown. 08:49 Method Of Arrival: EMS: [facility] ko1 08:49 Acuity: JARRETT 3 ko1 Triage Assessment: 08:54 General: Appears uncomfortable, Behavior is calm, cooperative, appropriate for age. ko1 Pain: Complains of pain in abdomen. EENT: No deficits noted. No signs and/or symptoms were reported regarding the EENT system. HARD OF HEARING. Neuro: No deficits noted. Cardiovascular: No deficits noted. Respiratory: No deficits noted. GI: Reports lower abdominal pain, upper abdominal pain, nausea, vomiting. : No deficits noted. No signs and/or symptoms were reported regarding the genitourinary system. Derm: No deficits noted. No signs and/or symptoms reported regarding the dermatologic system. Musculoskeletal: No deficits noted. No signs and/or symptoms reported regarding the musculoskeletal system. Historical: - Allergies: 08:54 Codeine; ko1 08:54 tramadol; ko1 08:54 Tylenol-Codeine; ko1 - Home Meds: 08:54 Unable to obtain [Active]; ko1 - PMHx: 08:54 Alzheimers; COPD; HARD OF HEARING; Hernia; Pancreatitis; ko1 - PSHx: 08:54 Adenoid excision; Appendectomy; breast implants; Cholecystectomy; double masectomy; ko1 stomach surgery to prevent vomiting; Tonsillectomy; Total abdominal hysterectomy; - Immunization history:: Adult Immunizations unknown. - Infectious Disease History:: Denies. - Social history:: Smoking status: Patient/guardian denies using tobacco, but has a distant history of tobacco abuse. Screenin:00 [facility] ED Fall Risk Assessment (Adult) History of falling in the last 3 months, ko1 including since admission No falls in past 3 months (0 pts) Confusion or Disorientation No (0 pts) Intoxicated or Sedated No (0 pts) Impaired Gait No (0 pts) Mobility Assist Device Used No (0 pt) Altered Elimination No (0 pt) Score/Fall Risk Level 0 - 2 = Low Risk Oriented to surroundings, Maintained a safe environment, Educated pt \T\ family on fall prevention, incl call for assistance when getting out of bed, Assessed \T\ reinforced patient's understanding of fall precautions, Provided non-skid footwear, Hourly rounding (assess needs \T\ fall precautionary measures) done. Abuse screen: Denies threats or abuse. Denies injuries from another. Nutritional screening: No deficits noted. Tuberculosis screening: No symptoms or risk factors identified. Assessment: 09:00 GI: Abdomen is flat, non-distended. ko1 10:46 Reassessment: Pt walked out of ER stating she was leaving. [employer] called as requested by ss Dr. Louis. 10:50 General: Pt states that she does not want her labs drawn and would like to go home. Pt cm10 walking out of ER and states that she wants to go home. Pt Brought back to room and daughter called. Dr. Louis aware. Pt removed all monitoring equipment.. Vital Signs: 08:49 BP 156 / 106; Pulse 79; Resp 17; Temp 97.2; Pulse Ox 96% on R/A; ko1 ED Course: 08:48 Patient arrived in ED. ko1 08:49 Kayla Hart, RN is Primary Nurse. ko1 08:54 Triage completed. ko1 08:54 Arm band placed on right wrist. Patient placed in an exam room, on a stretcher, on ko1 monitor and storage bin tender, on pulse oximetry, Patient notified of wait time. PATIENT DOES NOT WANT SON TO VISIT, ONLY HER DAUGHTER ANGELA IS ALLOWED. 09:00 Patient has correct armband on for positive identification. Allergy band placed. Bed in ko1 low position. Call light in reach. Side rails up X2. Provided Education on: labs, meds. Client placed on continuous cardiac and pulse oximetry monitoring. NIBP monitoring applied. monitor and storage bin tender on. Door closed. Noise minimized. Lights dimmed. Warm blanket given. Pillow given. 09:02 Joanne Louis MD is Attending Physician. gb1 10:40 No provider procedures requiring assistance completed. Missed attempt(s): 22 gauge in cm10 right wrist. Bleeding controlled, band aid applied, catheter tip intact. 11:02 Burak Pino MD is Referral Physician. gb1 11:06 Patient did not have IV access during this emergency room visit. cm10 Administered Medications: 10:59 Not Given (Patient Refused): ondansetron 4 mg IVP once; over 2 minutes cm10 10:59 Not Given (Patient Refused): ns 0.9% 1000 ml IV at 1 bolus Per protocol; to be given as cm10 a bolus over 60 minutes Medication: 09:00 VIS not applicable for this client. ko1 Outcome: 11:03 Discharge ordered by . gb1 11:14 Discharged to home ambulatory, with family, cm10 11:14 Condition: good 11:14 Discharge instructions given to patient, Instructed on discharge instructions, follow up and referral plans. medication usage, Demonstrated understanding of instructions, follow-up care, medications, Prescriptions given X 1, 11:15 Patient left the ED. cm10 Signatures: Dolores Hidalgo RN RN Kayla Hart RN RN ko1 Kate Vargas RN RN cm10 Joanne Louis MD MD gb1 Corrections: (The following items were deleted from the chart) 09:00 08:49 Chief complaint: EMS states: initially toned out for SI, however patient does not ko1 want to commit suicide she just wants to naturally. She has a lot of family issues and is tired of being nauseated and throwing up ko1 09:23 08:54 PATIENT DOES NOT WANT SON TO VISIT, ONLY HER DAUGHTER FEI IS ALLOWED ko1 ko1 11:06 10:50 General: Pt states that she does not want her labs drawn and would like to go cm10 home. Pt walking out of ER and states that she wants to go home. Pt Brought back to room and daughter called. Dr. Louis aware.. cm10
[2024-09-11 11:48] VITALS: BP 156/106; TEMP 97.2; O2SAT 96
== END 2024-09-11 11:15 | disposition home or self-care (01) ==
LOC: ER 08:44
DX: R11.0 Nausea (principal); G30.9 Alzheimer's disease, unspecified; F02.80 Dementia in other diseases classified elsewhere, unspecified severity, without behavioral disturbance, psychotic disturbance, mood disturbance, and anxiety; Z98.82 Breast implant status
CPT/HCPCS: 99284; J2405; J7030

== ENCOUNTER 2024-09-12 09:53 | Emergency (ER) | payer OTHER, BC ==
--- OUTSIDE RECORDS SUMMARY | 2024-09-12 09:56 | XMS REPORT | Continuity of Care Document ---
Author Name Unknown Address [address] [place] [address] [facility] thconnect Address 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 Role Phone PCP, PATIENT DOES NOT HAVE A Primary Care Physic padmini Unavailable Seamus Castro MD Attending Clinician [phone] [email or web address] Attending Clinician UnavailNIECY Barber Attending Clinician Unavailab Niecy Collazo DO Attending Clinician [phone] RADIOLOGY Attending Clinician Unavailable Radiology Attending Clinician Unavailable MIKHAIL HURTADO Attending Clinician Unavailab sil [email or web address]_S Admitting Clinician UnavailNIECY Barber Admitting Clinician Unavailab MEKA Ricks Admitting Clinician Unavailable MIKAHIL HURTADO Admitting Clinician Unavailab le Payers Payer Name Policy Type Policy Number Effective Date Expirati on Date Source MEDICARE PART A \T\ B [id number] 2004 00:00:00 [employer] TR[employer]ITIONAL [id number] 2017 00:00:00 Problems Condition Name Condition Details Condition Category Status Onset Date Resolution Date Last Treatment Date Treating Clinician Comments Source No known active problems No known active problems Disease [facility] Allergies, Adverse Reactions, Alerts Allergy Name Allergy Type Status Severity Reaction(s) Onset Date Inactive Date Treating Clinician Comments Source CODEINE DRUG INGREDI Active N/V 09-18 00:00: 00 [facility] Codeine Propensi ty to adverse reaction s Active Nausea and/or Vomiting 09-18 00:00: 00 [facility] NO KNOWN ALLERGIE S Drug Class Active [facility] Social History Social Habit Start Date Stop Date Quantity Comments Source Gender identity 2023-11-25 02:02:51 Identifies as female gender (finding) [facility] History of tobacco use Current smoker [facility] Sexual orientation [facility] History of Social function 2023-12-11 00:00:00 2023-12-11 00:00:00 [facility] Exposure to SARS-CoV-2 (event) 2022-09-08 00:00:00 2022-09-18 09:01:00 Not sure [facility] Sex Assigned At 1940 00:00:00 1940 00:00:00 [facility] Smoking Status Start Date Stop Date Source Ex-smoker [facility] Tobacco smoking consumption unknown [facility] Medications Ordered Medication Name Filled Medication [...] DAILY., # 30 ea, 3 Refill(s), Pharmacy: [facility], 162.56, cm, 06/14/23 9:48:00 CDT, Height, [...] 09:05: 08 No No known medication s [facility] gadoteridol (PROHANCE-1 5 mL) injection 0.2 mL/kg 2019-09 21:45: 00 08-12 22:15 :00 No .2mL/kg 0.2 mL/kg, Intravenou s, ONCE, 1 dose, Leni 08/12/20 at 1545, Routine [facility] Vital Signs Vital Name Observation Time Observation Value Comments S ource Heart rate 2022-09-18 16:44:00 62 /min [facility] Respiratory rate 2022-09-18 16:44:00 20 /min [facility] Oxygen saturation in Arterial blood by Pulse oximetry 2022-09-18 16:44:00 99 /min [facility] Systolic blood pressure 2022-09-18 16:00:18 153 mm[Hg] [facility] Diastolic blood pressure 2022-09-18 16:00:18 86 mm[Hg] [facility] Body temperature 2022-09-18 15:03:00 36.89 Keesha [facility] Body height 2022-09-18 15:03:00 160 cm [facility] Body weight 2022-09-18 15:03:00 53.524 kg [facility] BMI 2022-09-18 15:03:00 20.90 kg/m2 [facility] Procedures Procedure Date / Time Performed Performing Clinicia n Source CT TRAUMA HEAD WO CONTRAST 2022-09-18 15:55:32 Niecy Ball [facility] CT TRAUMA CERVICAL SPINE WO CONTRAST 2022-09-18 15:55:32 Niecy Ball [facility] XR SHOULDER <2 VW LEFT 2022-09-18 15:40:40 Ashley Ball [facility] NOTICE OF PRIVACY PRACTICES 2022-09-18 14:59:10 Doctor Unassigned, [place] [facility] CONSENT/REFUSAL FOR DIAGNOSIS AND TREATMENT 2022-09-18 14:58:45 Doctor Unassigned, [place] [facility] MR ABDOMEN W WO CONTRAST MRCP 2020-08-12 22:16:07 Requisition, Paper [facility] NOTICE OF PRIVACY PRACTICES 2020-08-12 21:10:37 Doctor Unassigned, [place] [facility] CONSENT/REFUSAL FOR DIAGNOSIS AND TREATMENT 2020-08-12 21:10:07 Doctor Unassigned, [place] [facility] ASSIGNMENT OF BENEFITS 2020-08-12 21:09:46 Docto r Unassigned, [place] [facility] Encounters Start Date/Time End Date/Time Encounter Type Admission Type Attending [facility] Facility Care Department Encounter ID Source 2024-04-17 00:00:00 2024-04-18 10:18:36 Seamus Patel [id number] Layton Garcia [facility] 2023-07-03 00:00:00 2023-07-03 00:00:00 Outpatient [email or web address] [email or web address]_S PRIV PRIV [id number] [facility] 2023-07-02 00:00:00 2023-07-02 00:00:00 Outpatient [email or web address] [email or web address]_S PRIV PRIV [id number] [facility] 2022-09-18 09:05:00 2022-09-18 10:46:00 Emergency X NIECY BALL [facility] ERT [id number] [facility] 2022-09-18 09:05:00 2022-09-18 10:46:00 Emergency Niecy Ball [facility] [id number] [facility] 2020-08-12 15:11:31 2020-08-12 23:59:00 Outpatient R RADIOLOGY [facility] [id number] [facility] 2020-08-12 15:00:00 2020-08-12 23:59:00 Hospital Encounter Radiology [facility] [id number] [facility] 2020-08-12 15:00:00 2020-08-12 23:59:00 Hospital Encounter Radiology [facility] [id number] Results Test Description Test Time Test Comments [...] without and with contrast including [facility] studies. [facility] Dunxf2226-[facility]-06 09:33:00* Test Item Value Reference Range Interpretation [...] assessment and management of chronic kidney failure. [facility]
[2024-09-12] MEDS ORDERED: ONDANSETRON 4 MG/2 ML VIAL ONE ×2 (10:07→11:08)
[2024-09-12] MEDS ORDERED: NA CHLORIDE 0.9% 500 ML ONE (10:08)
[2024-09-12 10:25] LABS: Absolute Basophils 0.1 K/uL (0-0.5); Absolute Eosinophils 0.5 K/uL (0-0.5); Absolute Lymphocytes (CBC) 1.8 K/uL (0.7-4.9); Absolute Monocytes 0.5 K/uL (0.1-1.3); Absolute Neutrophil 5.5 K/uL (1.8-8.0); Basophils % 0.7 % (0-1.3); Eosinophils % 6.1 % (0-4.4); Hematocrit 44.1 % (36.0-45.0); Hemoglobin 15.1 g/dL (12.0-15.0); Lymphocytes % 21.7 % (15.3-44.8); MCH 31.2 pg (27.0-35.0); MCHC 34.2 g/dL (32.0-36.0); MCV 91.4 fL (80-100); MPV 7.3 fL (7.6-11.3); Monocytes % 6.1 % (3.3-12.3); Neutrophils % 65.4 % (41.7-73.7); Nucleated Red Blood Cells % 0.3 % (0-0); Platelets 425 thou/uL (152-406); RBC Red Blood Cell Count 4.82 M/uL (3.86-4.86); Red Cell Distribution Width 14.2 % (12.1-15.2)
[2024-09-12 10:40] LABS: ALT/SGPT < 14 U/L (13-56); AST/SGOT 12 U/L (15-37); Albumin 3.6 g/dL (3.4-5.0); Albumin/Globulin Ratio 0.9 (1.1-1.8); Alkaline Phosphatase 90 U/L (45-117); Anion Gap 11.1 mEq/L (5.0-15.0); BUN Blood Urea Nitrogen 6 mg/dL (7-18); Bicarbonate 28 mEq/L (21-32); Bilirubin Total 0.8 mg/dL (0.2-1.0); Creatine Phosphokinase 68 U/L (26-192); Globulin 4.2 g/dL (2.3-3.5); Glomerular Filtration Rate 50 ml/min (=/>90); Glucose Level 118 mg/dL (74-106); Lipase 66 U/L (13-75); Protein, Total 7.8 g/dL (6.4-8.2); Sodium Level 137 mEq/L (136-145)
[2024-09-12 10:41] LABS: Potassium 2.1 mEq/L (3.5-5.1)
[2024-09-12] MEDS ORDERED: POTASSIUM 25 MEQ EFFERV TAB ONE ×2 (11:04→11:20)
[2024-09-12] MEDS ORDERED: NA CHLORIDE 0.9% 250 ML ONE (11:05)
[2024-09-12] MEDS ORDERED: KCL 20 MEQ/100 mL IVPB 100 ML IV ONE (11:05)
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
--- NOTE | 2024-09-12 11:40 | ER ---
Nurse's Notes [facility] Name: Milan Weir Age: 84 yrs Sex: Female : 1940 Arrival Date: 09/12/2024 Time: 09:53 Bed 19 Private MD: Diagnosis: Hypokalemia Presentation: 09/12 09:52 Chief complaint: EMS states: FROM [facility], PT WALKED THERE AND EMS WAS CALLED. PT db COMPLAINS OF NAUSEA AND NOT BEING ABLE TO EAT. PT STATES WAS KICKED OUT OF THE HOUSE WITH FAMILY AND THEY DON'T WANT HER THERE ANYMORE. Coronavirus screen: Client denies travel out of the [place] in the last 14 days. At this time, the client does not indicate any symptoms associated with coronavirus-19. Ebola Screen: Patient negative for fever greater than or equal to 101.5 degrees Fahrenheit, and additional compatible Ebola Virus Disease symptoms Patient denies exposure to infectious person. Patient denies travel to an Ebola-affected area in the 21 days before illness onset. No symptoms or risks identified at this time. Initial Sepsis Screen: Does the patient meet any 2 criteria? No. Patient's initial sepsis screen is negative. Does the patient have a suspected source of infection? No. Patient's initial sepsis screen is negative. Risk Assessment: Do you want to hurt yourself or someone else? Patient reports no desire to harm self or others. Onset of symptoms was September 12, 2024. 09:52 Method Of Arrival: EMS: [facility] db 09:52 Acuity: JARRETT 3 db Triage Assessment: 10:03 General: Appears in no apparent distress. comfortable, Behavior is calm, cooperative. db Pain: Denies pain. Neuro: Level of Consciousness is awake, alert, obeys commands, Oriented to person, place, time, situation. Respiratory: Airway is patent Respiratory effort is even, unlabored, Respiratory pattern is regular, symmetrical. GI: Reports nausea. Historical: - Allergies: 10:03 Codeine; db 10:03 tramadol; db 10:03 Tylenol-Codeine; db - PMHx: 10:03 Alzheimers; COPD; HARD OF HEARING; Hernia; Pancreatitis; db - PSHx: 10:03 Adenoid excision; Appendectomy; breast implants; Cholecystectomy; Cholecystectomy; db double masectomy; stomach surgery to prevent vomiting; Total abdominal hysterectomy; Tonsillectomy; - Immunization history:: Adult Immunizations unknown. - Infectious Disease History:: Denies. - Social history:: Smoking status: unknown. Screenin:40 [facility] ED Fall Risk Assessment (Adult) History of falling in the last 3 months, db including since admission No falls in past 3 months (0 pts) Confusion or Disorientation No (0 pts) Intoxicated or Sedated No (0 pts) Impaired Gait No (0 pts) Mobility Assist Device Used No (0 pt) Altered Elimination No (0 pt) Score/Fall Risk Level 0 - 2 = Low Risk Oriented to surroundings, Maintained a safe environment. Abuse screen: Denies threats or abuse. Denies injuries from another. Nutritional screening: No deficits noted. 11:44 Tuberculosis screening: No symptoms or risk factors identified. db Assessment: 10:05 Reassessment: Patient appears in no apparent distress at this time. SEE TRIAGE FOR db INITIAL ASSESSMENT. 11:36 Reassessment: Patient appears in no apparent distress at this time. Patient and/or db family updated on plan of care and expected duration. Pain level reassessed. Patient is alert, oriented x 3, equal unlabored respirations, skin warm/dry/pink. PATIENT REMOVED HER IV AND WALKED OUT OF ROOM. NOTIFIED DR. ASHBY AND NOTIFIED PATIENT SON THAT PT IS LEAVING. PT WALKED OUT WITH FAMILY. PT ALERT ORIENTED AND IN NAD. AMBULATORY WITH [facility]. 11:39 Reassessment: NOTIFIED DR. ASHBY PATIENT LEFT PRIOR TO FINISHING BOTH PO AND IV db POTASSIUM. Vital Signs: 09:52 BP 170 / 95; Pulse 71; Resp 16; Temp 98.3; Pulse Ox 100% ; Weight 49.9 kg; Height 5 ft. db 4 in. ; 11:00 BP 135 / 74; Pulse 83; Resp 16; Pulse Ox 100% on R/A; db 09:52 Body Mass Index 18.88 (49.90 kg, 162.56 cm) db ED Course: 09:57 Patient arrived in ED. sp3 09:58 Jovan Ashby MD is Attending Physician. sp3 10:00 Sridevi Rodriguez, RN is Primary Nurse. db 10:03 Triage completed. db 10:03 Arm band placed on Patient placed in an exam room. db 10:11 Initial lab(s) drawn, by me, sent to lab. Inserted saline lock: 22 gauge in right ty antecubital area, using aseptic technique. Blood collected. Flushed with 10 mL NS. 10:14 CBC with Diff Sent. ty 10:14 CMP Sent. ty 10:14 CK Sent. ty 10:14 Lactate w/ 2H reflex if indic. Sent. ty 11:39 Provided Education on: RETURN IF SYMPTOMS DO NOT GET BETTER. db 11:40 Client placed on continuous cardiac and pulse oximetry monitoring. NIBP monitoring db applied. color television console monitor on. Pulse ox on. NIBP on. Warm blanket given. Pillow given. 11:44 Patient has correct armband on for positive identification. Bed in low position. Call db light in reach. Side rails up X 1. 11:44 IV discontinued, intact, bleeding controlled, No redness/swelling at site. PATIENT db REMOVED IV. 11:44 No provider procedures requiring assistance completed. db Administered Medications: 11:41 Discontinued: potassium [id number] meq IV at calculated rate once; administer over 1-2 db hours 10:10 Drug: NS 0.9% IV 500 ml 500 ml IV at 1 bolus once; to be given as a bolus over 30 db minutes Volume: 500 ml; Route: IV; Rate: 1 bolus; Site: right antecubital; 11:41 Follow up: Response: No adverse reaction; IV Status: Completed infusion; IV Intake: db 500ml 10:12 Drug: Ondansetron IVP 4 mg IVP once; over 2 minutes Route: IVP; Site: right antecubital;db 11:41 Follow up: Response: No adverse reaction db 11:11 Drug: Potassium PO Effervescent Tablet 50 mEq PO once; dissolve in 4 ounces of water or db juice Route: PO; 11:41 Follow up: Response: Temperature is decreased; Other; PT REFUSED TO DRINK ALL OF db POTASSIUM 11:18 Drug: Potassium Chloride IV 20 mEq IV at calculated rate once; administer over 1-2 db hours Route: IV; Rate: calculated rate; Site: right antecubital; 11:18 Drug: Ondansetron IVP 4 mg IVP once; over 2 minutes Route: IVP; Site: right antecubital;db 11:42 Follow up: Response: No adverse reaction db Medication: 11:40 VIS not applicable for this client. db Intake: 11:41 IV: 500ml; Total: 500ml. db Outcome: 11:38 AMA Left before signing form, db 11:38 Condition: stable 11:38 Instructed on RETURNING TO ER IF SYMPTOMS WORSEN OR DO NOT IMPROVE 11:39 Discharge ordered by . sp3 11:40 Discharged to home ambulatory, with family, db 11:44 Patient left the ED. db Signatures: Jovan Ashby MD MD sp3 Sridevi Rodriguez, RN RN db Fredi Cook Corrections: (The following items were deleted from the chart) 10:17 10:14 LIPASE+C.LAB.BRZ drawn and sent. ty EDMS
[2024-09-12 12:03] VITALS: BP 135/74; O2SAT 100
== END 2024-09-12 11:44 | disposition home or self-care (01) ==
LOC: ER 09:53
DX: E87.6 Hypokalemia (principal); J44.9 Chronic obstructive pulmonary disease, unspecified; G30.9 Alzheimer's disease, unspecified; F02.80 Dementia in other diseases classified elsewhere, unspecified severity, without behavioral disturbance, psychotic disturbance, mood disturbance, and anxiety; Z98.82 Breast implant status
CPT/HCPCS: 96361; 85025; 36415; 82550; 83605; 83690; 80053; 96375; 96374; 99285; J3480; J2405 ×2; J7050; J7040

== ENCOUNTER 2024-09-20 08:01 | Inpatient (IN) | payer OTHER, BC ==
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
[2024-09-20] MEDS ORDERED: FAMOTIDINE 20 MG/2 ML VIAL IV ONE (08:30)
[2024-09-20] MEDS ORDERED: ONDANSETRON 4 MG/2 ML VIAL ONE (08:30)
[2024-09-20] MEDS ORDERED: NA CHLORIDE 0.9% 500 ML ONE ×2 (08:30→13:03)
[2024-09-20 08:39] LABS: Absolute Basophils 0.1 K/uL (0-0.5); Absolute Eosinophils 0.3 K/uL (0-0.5); Absolute Lymphocytes (CBC) 1.7 K/uL (0.7-4.9); Absolute Monocytes 0.6 K/uL (0.1-1.3); Absolute Neutrophil 7.4 K/uL (1.8-8.0); Basophils % 0.7 % (0-1.3); Eosinophils % 2.9 % (0-4.4); Hematocrit 42.3 % (36.0-45.0); Hemoglobin 14.5 g/dL (12.0-15.0); Lymphocytes % 17.2 % (15.3-44.8); MCH 31.2 pg (27.0-35.0); MCHC 34.3 g/dL (32.0-36.0); MCV 91.1 fL (80-100); MPV 7.5 fL (7.6-11.3); Monocytes % 5.6 % (3.3-12.3); Neutrophils % 73.6 % (41.7-73.7); Nucleated Red Blood Cells % 0.1 % (0-0); Platelets 315 thou/uL (152-406); RBC Red Blood Cell Count 4.64 M/uL (3.86-4.86); Red Cell Distribution Width 14.3 % (12.1-15.2)
[2024-09-20 08:43] LABS: PT Prothrombin Time 11.8 SECONDS (9.4-12.5); Protime INR 1.13
[2024-09-20] MEDS ORDERED: MORPHINE 2 MG/ML SYR ONE (09:00)
[2024-09-20 09:17] LABS: Albumin 3.1 g/dL (3.4-5.0); Albumin/Globulin Ratio 0.8 (1.1-1.8); Alkaline Phosphatase 77 U/L (45-117); Anion Gap 10.8 mEq/L (5.0-15.0); BUN Blood Urea Nitrogen 7 mg/dL (7-18); Bicarbonate 26 mEq/L (21-32); Bilirubin Total 0.8 mg/dL (0.2-1.0); Globulin 3.7 g/dL (2.3-3.5); Glomerular Filtration Rate 74 ml/min (=/>90); Glucose Level 107 mg/dL (74-106); Lipase 30 U/L (13-75); NT PRO-BNP 229 pg/mL (<450); Protein, Total 6.8 g/dL (6.4-8.2); Sodium Level 143 mEq/L (136-145); Troponin High Sensitivity 7.6 pg/mL (<58.9)
[2024-09-20 09:18] LABS: ALT/SGPT < 14 U/L (13-56); AST/SGOT 15 U/L (15-37); Bilirubin Direct < 0.2 mg/dL (0-0.2); Bilirubin Indirect, Calculated 0.6 mg/dL (0.2-0.8); Magnesium 1.9 mg/dL (1.6-2.4); Potassium 2.8 mEq/L (3.5-5.1)
--- NOTE | 2024-09-20 09:34 | RAD REPORT ---
EXAM: Chest Single View HISTORY: COUGH COMPARISON: 08/15/2024 FINDINGS: LUNGS/PLEURA: The lungs are clear. No pleural effusions or pneumothorax. No pulmonary edema. MEDIASTINUM: The mediastinal silhouette is within normal limits. CARDIAC: The cardiac silhouette is within normal limits. UPPER ABDOMEN: No significant abnormality. BONES: No acute abnormality. LINES/TUBES/OTHER: Left IJ approach Port-A-Cath with tip overlying the SVC. IMPRESSION: No evidence of acute cardiopulmonary disease.
[2024-09-20] MEDS ORDERED: POTASSIUM 25 MEQ EFFERV TAB ONE (11:22)
--- NOTE | 2024-09-20 12:59 | ER ---
Nurse's Notes [facility] Name: Milan Weir Age: 84 yrs Sex: Female : 1940 Arrival Date: 09/20/2024 Time: 08:01 Bed 14 Private MD: Diagnosis: Nausea;Vomiting;Abdominal pain, Generalized;Hypokalemia Presentation: 09/20 08:05 Chief complaint: EMS states: Pt c/o N/V that started last night, has Phenergan ph suppositories but did take them, has hx of N/V, VSS BGL 113. Coronavirus screen: Vaccine status: Patient reports receiving the 2nd dose of the covid vaccine. Ebola Screen: No symptoms or risks identified at this time. Initial Sepsis Screen: Does the patient meet any 2 criteria? No. Patient's initial sepsis screen is negative. Does the patient have a suspected source of infection? No. Patient's initial sepsis screen is negative. Risk Assessment: Do you want to hurt yourself or someone else? Patient reports no desire to harm self or others. Onset of symptoms was September 20, 2024. 08:05 Method Of Arrival: EMS: [facility] ph 08:05 Acuity: JARRETT 3 ph Triage Assessment: 08:08 General: Appears in no apparent distress. Behavior is calm, cooperative. Pain: Denies ph pain. Neuro: Level of Consciousness is awake, alert, obeys commands, Oriented to person, place, time, situation. Cardiovascular: Capillary refill < 3 seconds in bilateral fingers Patient's skin is warm and dry. Respiratory: Airway is patent Respiratory effort is even, unlabored. GI: Abdomen is non-distended, Reports nausea. Derm: Skin is pink, warm \T\ dry. Historical: - Allergies: 08:08 Codeine; ph 08:08 Tylenol-Codeine; ph - PMHx: 08:08 Alzheimers; COPD; HARD OF HEARING; Hernia; Pancreatitis; ph - PSHx: 08:08 Appendectomy; Adenoid excision; breast implants; Cholecystectomy; double masectomy; ph stomach surgery to prevent vomiting; Tonsillectomy; Total abdominal hysterectomy; - Immunization history:: Adult Immunizations unknown. - Infectious Disease History:: Denies. - Social history:: Smoking status: unknown. Screenin:11 [facility] ED Fall Risk Assessment (Adult) History of falling in the last 3 months, ph including since admission No falls in past 3 months (0 pts) Confusion or Disorientation No (0 pts) Intoxicated or Sedated No (0 pts) Impaired Gait No (0 pts) Mobility Assist Device Used No (0 pt) Altered Elimination No (0 pt) Score/Fall Risk Level 0 - 2 = Low Risk Oriented to surroundings, Maintained a safe environment, Hourly rounding (assess needs \T\ fall precautionary measures) done. Abuse screen: Denies threats or abuse. Denies injuries from another. Nutritional screening: No deficits noted. Tuberculosis screening: No symptoms or risk factors identified. Assessment: 08:56 General: SEE TRIAGE ASSESSMENT. ph 10:30 Reassessment: Patient appears in no apparent distress at this time. Patient and/or ph family updated on plan of care and expected duration. Pain level reassessed. Patient is alert, oriented x 3, equal unlabored respirations, skin warm/dry/pink. 12:00 Reassessment: Patient appears in no apparent distress at this time. Patient and/or ph family updated on plan of care and expected duration. Pain level reassessed. Patient is alert, oriented x 3, equal unlabored respirations, skin warm/dry/pink. 15:06 Reassessment: Patient appears in no apparent distress at this time. Patient and/or ph family updated on plan of care and expected duration. Pain level reassessed. Patient is alert, oriented x 3, equal unlabored respirations, skin warm/dry/pink. Vital Signs: 08:05 BP 145 / 77; Pulse 73; Resp 18; Temp 97.9; Pulse Ox 99% on R/A; Weight 52.16 kg; Height ph 5 ft. 4 in. ; 09:03 BP 135 / 92; Pulse 74; Resp 18; Pulse Ox 98% on R/A; ph 10:04 BP 144 / 87; Pulse 70; Resp 18; Pulse Ox 100% on R/A; ph 11:30 BP 136 / 87; Pulse 72; Resp 18; Pulse Ox 97% on R/A; ph 12:30 BP 146 / 89; Pulse 68; Resp 18; Pulse Ox 99% on R/A; ph 13:41 BP 141 / 89; Pulse 64; Resp 18; Pulse Ox 98% on R/A; ph 15:07 BP 132 / 84; Pulse 67; Resp 18; Temp 97.5; Pulse Ox 98% on R/A; ph 08:05 Body Mass Index 19.74 (52.16 kg, 162.56 cm) ph ED Course: 08:03 Patient arrived in ED. ph 08:05 Sean Seymour MD is Attending Physician. nargis 08:08 Triage completed. ph 08:10 Arm band placed on Patient placed in an exam room, on a stretcher, on pulse oximetry. ph 08:11 Patient has correct armband on for positive identification. Bed in low position. Call ph light in reach. Side rails up X 1. Pulse ox on. NIBP on. Door closed. Noise minimized. Warm blanket given. Pillow given. 08:43 Annie Baltazar, RN is Primary Nurse. ph 08:53 Basic Metabolic Panel Sent. ph 08:53 LFT's Sent. ph 08:53 Magnesium Sent. ph 08:53 NT PRO-BNP Sent. ph 08:53 Troponin HS Sent. ph 08:53 Maintain EMS IV. Dressing intact. Good blood return noted. Site clean \T\ dry. Gauge \T\ ph site: 22 LFA. Flushed with 10 mL NS. 09:20 XRAY Chest (1 view) In Process Unspecified. EDMS 12:57 Dagoberto Ramon MD is Hospitalizing Provider. [facility] 13:16 CT Abd/Pelvis - Without Contrast In Process Unspecified. EDMS 13:42 No provider procedures requiring assistance completed. Patient admitted, IV remains in ph place. Administered Medications: 08:52 Drug: NS 0.9% IV 500 ml 500 ml IV at 1 bolus once; to be given as a bolus over 30 ph minutes Volume: 500 ml; Route: IV; Rate: 1 bolus; Site: left forearm; 09:30 Follow up: Response: No adverse reaction; IV Status: Completed infusion; IV Intake: ph 500ml 08:52 Drug: Ondansetron IVP 4 mg IVP once; over 2 minutes Route: IVP; Site: left forearm; ph 09:30 Follow up: Response: No adverse reaction ph 08:52 Drug: Famotidine IVP 20 mg IVP once; dilute with 10 mL 0.9% NaCl; give over 2 minutes ph Route: IVP; Site: left forearm; 09:30 Follow up: Response: No adverse reaction ph 09:04 Drug: morphine IVP or IV 2 mg IVP once over 4 mins Route: IVP; Infused Over: 4 mins; ph Site: left forearm; 09:30 Follow up: Response: No adverse reaction ph 11:47 Drug: Potassium PO Effervescent Tablet 50 mEq PO once; dissolve in 4 ounces of water or ph juice Route: PO; 15:42 Follow up: Response: No adverse reaction ph 13:40 Drug: NS 0.9% IV 500 ml 500 ml IV at 1 bolus once; to be given as a bolus over 30 ph minutes Volume: 500 ml; Route: IV; Rate: 1 bolus; Site: left forearm; 15:10 Follow up: Response: No adverse reaction; IV Status: Completed infusion; IV Intake: ph 500ml 13:40 Drug: fentaNYL (PF) IVP 50 mcg IVP once Route: IVP; Site: left forearm; ph 14:00 Follow up: Response: No adverse reaction; Pain is decreased ph 13:41 Drug: Promethazine IVP 25 mg IVP once Route: IVP; Site: left forearm; ph 15:42 Follow up: Response: No adverse reaction ph 13:41 Drug: NS 0.9% with KCl IV 20 mEq/L 1000 ml IV at 125 ml/hr continuous Route: IV; Rate: ph 125 ml/hr; Site: left forearm; 15:42 Follow up: Response: No adverse reaction; IV Status: Infusion continued upon admission ph Medication: 08:11 VIS not applicable for this client. ph Intake: 09:30 IV: 500ml; Total: 500ml. ph 15:10 IV: 500ml; Total: 1000ml. ph Outcome: 12:58 Decision to Hospitalize by Provider. nargis 16:19 Patient left the ED. ph Signatures: Dispatcher [employer] EDNV Sean Seymour MD MD cha Hall, Patricia, RN RN ph Corrections: (The following items were deleted from the chart) 09:48 08:08 Allergies: tramadol; ph ph 15:19 15:19 fentaNYL (PF) IVP 50 mcg IVP in left forearm ph ph
--- NOTE | 2024-09-20 12:59 | EDPHYS ---
Physician Documentation [facility] Name: Milan Weir Age: 84 yrs Sex: Female : 1940 Arrival Date: 09/20/2024 Time: 08: Bed 14 Private MD: RASHAAD Physician Sean Seymour HPI: 09/20 12:50 This 84 yrs old Female presents to ER via EMS with complaints of nargis Nausea/Vomiting. 12:50 The patient presents to the emergency department with nausea, vomiting, abdominal pain, nargis of the right upper quadrant, left upper quadrant, right lower quadrant and left lower quadrant. Onset: The symptoms/episode began/occurred 3 day(s) ago. Possible causes: unknown. The symptoms are aggravated by nothing. The symptoms are alleviated by nothing. Associated signs and symptoms: Pertinent positives: abdominal pain, anorexia, belching, nausea, vomiting. Severity of symptoms: At their worst the symptoms were moderate in the emergency department the symptoms are unchanged. The patient has experienced similar episodes in the past, several times. Historical: - Allergies: 08:08 Codeine; ph 08:08 Tylenol-Codeine; ph - PMHx: 08:08 Alzheimers; COPD; HARD OF HEARING; Hernia; Pancreatitis; ph - PSHx: 08:08 Appendectomy; Adenoid excision; breast implants; Cholecystectomy; double masectomy; ph stomach surgery to prevent vomiting; Tonsillectomy; Total abdominal hysterectomy; - Immunization history:: Adult Immunizations unknown. - Infectious Disease History:: Denies. - Social history:: Smoking status: unknown. ROS: 12:51 Constitutional: Negative for fever, chills, and weight loss, Eyes: Negative for injury, nargis pain, redness, and discharge, ENT: Negative for injury, pain, and discharge, Neck: Negative for injury, pain, and swelling, Cardiovascular: Negative for chest pain, palpitations, and edema, Respiratory: Negative for shortness of breath, cough, wheezing, and pleuritic chest pain, Back: Negative for injury and pain, : Negative for injury, bleeding, discharge, and swelling, MS/Extremity: Negative for injury and deformity, Skin: Negative for injury, rash, and discoloration, Neuro: Negative for headache, weakness, numbness, tingling, and seizure, Psych: Negative for depression, anxiety, suicide ideation, homicidal ideation, and hallucinations, Allergy/Immunology: Negative for hives, rash, and allergies, Endocrine: Negative for neck swelling, polydipsia, polyuria, polyphagia, and marked weight changes, Hematologic/Lymphatic: Negative for swollen nodes, abnormal bleeding, and unusual bruising, 12:51 Abdomen/GI: Positive for abdominal pain, nausea and vomiting, abdominal cramps, Exam: 12:51 Constitutional: This is a well developed, well nourished patient who is awake, alert, nargis and in no acute distress. Head/Face: Normocephalic, atraumatic. Eyes: Pupils equal round and reactive to light, extra-ocular motions intact. Lids and lashes normal. Conjunctiva and sclera are non-icteric and not injected. Cornea within normal limits. Periorbital areas with no swelling, redness, or edema. ENT: Nares patent. No nasal discharge, no septal abnormalities noted. Tympanic membranes are normal and external auditory canals are clear. Oropharynx with no redness, swelling, or masses, exudates, or evidence of obstruction, uvula midline. Mucous membranes moist. Neck: Trachea midline, no thyromegaly or masses palpated, and no cervical lymphadenopathy. Supple, full range of motion without nuchal rigidity, or vertebral point tenderness. No Meningismus. Chest/axilla: Normal chest wall appearance and motion. Nontender with no deformity. No lesions are appreciated. Cardiovascular: Regular rate and rhythm with a normal S1 and S2. No gallops, murmurs, or rubs. Normal PMI, no JVD. No pulse deficits. Respiratory: Lungs have equal breath sounds bilaterally, clear to auscultation and percussion. No rales, rhonchi or wheezes noted. No increased work of breathing, no retractions or nasal flaring. Back: No spinal tenderness. No costovertebral tenderness. Full range of motion. Skin: Warm, dry with normal turgor. Normal color with no rashes, no lesions, and no evidence of cellulitis. MS/ Extremity: Pulses equal, no cyanosis. Neurovascular intact. Full, normal range of motion., bilateral aka Neuro: Awake and alert, GCS 15, oriented to person, place, time, and situation. Cranial nerves II-XII grossly intact. Motor strength 5/5 in all extremities. Sensory grossly intact. Cerebellar exam normal. Normal gait. Psych: Awake, alert, with orientation to person, place and time. Behavior, mood, and affect are within normal limits. 12:51 ECG was reviewed by the Attending Physician. 12:51 Abdomen/GI: Inspection: abdomen appears normal, Bowel sounds: hyperactive, in all quadrants, Palpation: mild abdominal tenderness, in all quadrants, Liver: no appreciated palpable abnormalities, Hernia: not appreciated, 14:08 ECG was reviewed by the Attending Physician. [facility] Vital Signs: 08:05 BP 145 / 77; Pulse 73; Resp 18; Temp 97.9; Pulse Ox 99% on R/A; Weight 52.16 kg; Height ph 5 ft. 4 in. ; 09:03 BP 135 / 92; Pulse 74; Resp 18; Pulse Ox 98% on R/A; ph 10:04 BP 144 / 87; Pulse 70; Resp 18; Pulse Ox 100% on R/A; ph 11:30 BP 136 / 87; Pulse 72; Resp 18; Pulse Ox 97% on R/A; ph 12:30 BP 146 / 89; Pulse 68; Resp 18; Pulse Ox 99% on R/A; ph 13:41 BP 141 / 89; Pulse 64; Resp 18; Pulse Ox 98% on R/A; ph 15:07 BP 132 / 84; Pulse 67; Resp 18; Temp 97.5; Pulse Ox 98% on R/A; ph 08:05 Body Mass Index 19.74 (52.16 kg, 162.56 cm) ph MDM: 08:05 Medical Screening Exam initiated nargis 12:53 Differential diagnosis: Nonspecific abd pain, pancreatitis, viral gastroenteritis, nargis gastroenteritis. Data reviewed: vital signs, nurses notes, lab test result(s), EKG, radiologic studies, CT scan, plain films. Consideration of Admission/Observation Escalation of care including admission/observation considered. I considered the following discharge prescriptions or medication management in the emergency department Medications were administered in the Emergency Department. See MAR. Independent interpretation of the following test(s) in the Emergency Department EKG: See my EKG interpretation above. Test considered but Not performed: Ultrasound no abd usg. Historians other than the Patient: EMS: EMS WELL INFORMED, DAUGHTER WELL INFORMED. External Records Reviewed: Inpatient record: [facility] reviewed. Care significantly affected by the following chronic conditions: Hypertension, Chronic Obstructive Pulmonary Disease, pancreatiits, WAINWRIGHT. Counseling: I had a detailed discussion with the patient and/or guardian regarding the historical points, exam findings, and any diagnostic results supporting the discharge/admit diagnosis, lab results, radiology results, the need for further work-up and treatment in the hospital. 09/20 08:06 Order name: Basic Metabolic Panel; Complete Time: 11:08 09/20 08:06 Order name: CBC with Diff; Complete Time: 11:08 09/20 08:06 Order name: LFT's; Complete Time: 11:08 09/20 08:06 Order name: Magnesium; Complete Time: 11:08 09/20 08:06 Order name: NT PRO-BNP; Complete Time: 11:08 [facility] 09/20 08:06 Order name: PT-INR; Complete Time: 11:08 09/20 08:06 Order name: Troponin HS; Complete Time: 11:08 [facility] 09/20 08:06 Order name: Lipase; Complete Time: 11:08 [facility] 09/20 08:06 Order name: Urinalysis w/ reflexes 09/20 08:06 Order name: XRAY Chest (1 view); Complete Time: 11:08 [facility] 09/20 12:50 Order name: CT Abd/Pelvis - Without Contrast; Complete Time: 14:08 [facility] 09/20 08:06 Order name: Cardiac monitoring; Complete Time: 11:47 09/20 08:06 Order name: EKG - Nurse/Tech; Complete Time: 14:38 [facility] 09/20 08:06 Order name: IV Saline Lock; Complete Time: 08:12 [facility] 09/20 08:06 Order name: Labs collected and sent; Complete Time: 08:52 [facility] 09/20 08:06 Order name: O2 Per Protocol; Complete Time: 08:12 09/20 08:06 Order name: O2 Sat Monitoring; Complete Time: 08:12 [facility] 09/20 11:09 Order name: PO challenge: juice; Complete Time: 11:47 [facility] EC:08 Rate is 60 beats/min. Rhythm is regular. QRS [place] is Normal. [place] interval is normal. QRS nargis interval is normal. QT interval is normal. No Q waves. T waves are Normal. No ST changes noted. Clinical impression: NSR w/ Non-specific ST/T Changes and No evidence of ischemia. Interpreted by me. Reviewed by me. Administered Medications: 08:52 Drug: NS 0.9% IV 500 ml 500 ml IV at 1 bolus once; to be given as a bolus over 30 ph minutes Volume: 500 ml; Route: IV; Rate: 1 bolus; Site: left forearm; 09:30 Follow up: Response: No adverse reaction; IV Status: Completed infusion; IV Intake: ph 500ml 08:52 Drug: Ondansetron IVP 4 mg IVP once; over 2 minutes Route: IVP; Site: left forearm; ph 09:30 Follow up: Response: No adverse reaction ph 08:52 Drug: Famotidine IVP 20 mg IVP once; dilute with 10 mL 0.9% NaCl; give over 2 minutes ph Route: IVP; Site: left forearm; 09:30 Follow up: Response: No adverse reaction ph 09:04 Drug: morphine IVP or IV 2 mg IVP once over 4 mins Route: IVP; Infused Over: 4 mins; ph Site: left forearm; 09:30 Follow up: Response: No adverse reaction ph 11:47 Drug: Potassium PO Effervescent Tablet 50 mEq PO once; dissolve in 4 ounces of water or ph juice Route: PO; 15:42 Follow up: Response: No adverse reaction ph 13:40 Drug: NS 0.9% IV 500 ml 500 ml IV at 1 bolus once; to be given as a bolus over 30 ph minutes Volume: 500 ml; Route: IV; Rate: 1 bolus; Site: left forearm; 15:10 Follow up: Response: No adverse reaction; IV Status: Completed infusion; IV Intake: ph 500ml 13:40 Drug: fentaNYL (PF) IVP 50 mcg IVP once Route: IVP; Site: left forearm; ph 14:00 Follow up: Response: No adverse reaction; Pain is decreased ph 13:41 Drug: Promethazine IVP 25 mg IVP once Route: IVP; Site: left forearm; ph 15:42 Follow up: Response: No adverse reaction ph 13:41 Drug: NS 0.9% with KCl IV 20 mEq/L 1000 ml IV at 125 ml/hr continuous Route: IV; Rate: ph 125 ml/hr; Site: left forearm; 15:42 Follow up: Response: No adverse reaction; IV Status: Infusion continued upon admission ph Disposition Summary: 09/20/24 12:58 Hospitalization Ordered Notes: Hospitalization Status: Observation nargis Provider: Dagoberto Ramon cha Location: Telemetry/MedSurg (observation) nargis Condition: Fair nargis Problem: new nargis Symptoms: have improved nargis Bed/Room Type: Standard nargis Room Assignment: 401(09/20/24 14:56) eb Diagnosis - Nausea nargis - Vomiting nargis - Abdominal pain, Generalized nargis - Hypokalemia nargis Forms: - Medication Reconciliation Form nargis - SBAR form nargis - Leadership Thank You Letter nargis Signatures: Dispatcher [employer] EDMS Sean Seymour MD MD cha Hall, Patricia RN RN ph Marsha Villa Corrections: (The following items were deleted from the chart) 08:07 08:07 BASIC METABOLIC PANEL+C.LAB.BRZ ordered. EDMS EDMS 08:07 08:07 CBC+H.LAB.BRZ ordered. EDMS EDMS 08:07 08:07 HEPATIC FUNCTION+C.LAB.BRZ ordered. EDMS EDMS 08:07 08:07 MAGNESIUM+C.LAB.BRZ ordered. EDMS EDMS 08:07 08:07 PROBNP+C.LAB.BRZ ordered. EDMS EDMS 08:07 08:07 PROTIME (+INR)+COAG.LAB.BRZ ordered. EDMS EDMS 08:07 08:07 Troponin High Sensitivity+C.LAB.BRZ ordered. EDMS EDMS 08:07 08:07 LIPASE+C.LAB.BRZ ordered. EDMS EDMS 08:07 08:07 Urinalysis+U.LAB.BRZ ordered. EDMS EDMS 08:07 08:07 Chest Single View+RAD.RAD.BRZ ordered. EDMS EDMS 09:48 08:08 Allergies: tramadol; ph ph 12:50 12:50 Abdomen Pelvis Wo Con+CT.RAD.BRZ ordered. EDMS EDMS 14:56 12:58 nargis eb
[2024-09-20] MEDS ORDERED: PROMETHAZINE INJ 25 MG/ML AMP ONE (13:02)
[2024-09-20] MEDS ORDERED: NS KCL 20MEQ 1,000 ML IV ONE (13:03)
[2024-09-20] MEDS ORDERED: FENTANYL CITR 100 MCG/2 ML ONE (13:04)
--- NOTE | 2024-09-20 13:48 | RAD REPORT ---
EXAMINATION: CT ABDOMEN AND PELVIS WITHOUT CONTRAST CLINICAL INDICATION: Female, 84 years old.Abd pain;Nausea / vomiting TECHNIQUE: CT abdomen and pelvis was performed, without IV contrast, as per department protocol. Axia l, sagittal and coronal reconstructions were obtained. One or more of the following dose reduction techniques were used: Automated exposure control, adjustment of the mA and/or kV according to the pat ient size, and/or iterative reconstruction. Unless otherwise specified, incidental findings do not require dedicated imaging follow-up. [id number]. IV CONTRAST: Not administered. COMPARISON: 06/28/2024 FINDINGS: The lack of intravenous contrast limits the sensitivity of this exam for evaluation of solid visceral organs, vascular structures, and retroperitoneum. LOWER CHEST: Chronic ruptured right breast prosthesis. Intact left prosthesis. Micronodularity presen t in the anterolateral aspect of the right lower lobe. Multivessel coronary artery calcifications.Small pericardial effusion. Mild thickening of the distal esophagus. UPPER GI: Surgical changes at the gastroesophageal junction. LIVER: No significant focal abnormality. GALLBLADDER/BILE DUCTS: Cholecystectomy. Moderate extra-hepatic biliary ductal dilatation is likely r elated to the post-cholecystectomy state. Consider correlating with LFT's.?This is unchanged. PANCREAS: No mass, ductal dilation, or jacki-pancreatic fluid. SPLEEN: Unremarkable. ADRENALS: No adrenal masses. KIDNEYS AND URETERS: No hydronephrosis.No suspicious renal mass. ABDOMINAL AORTA AND OTHER VESSELS: Moderate atherosclerotic changes without aortic aneurysm. PERITONEUM: No abnormal free fluid. No free air. LYMPH NODES: Interval increase in size of a ileocolic mesenteric lymph node measuring 11 mm, previous ly 4 mm. ABDOMINAL WALL: Unremarkable SMALL BOWEL/COLON: Small bowel has normal course and caliber. No colonic wall thickening or pericolon ic inflammatory changes.Nonspecific fluid present within the small bowel and colon Moderate diverticulosis without diverticulitis. URINARY BLADDER: Underdistended but grossly unremarkable. REPRODUCTIVE ORGANS: Uterus surgically absent. No adnexal abnormality. MUSCULOSKELETAL: Mild superior endplate deformity at L1. This is chronic. ADDITIONAL FINDINGS: None. IMPRESSION: 1. No acute findings in the abdomen or pelvis. Nonspecific fluid within the small bowel could reflect a mild enteritis or malabsorptive process. 2. Pathologically enlarged right ileocolic lymph node is new since 06/28/24 but of uncertain signific ance. It is probably reactive. 3. Chronic biliary duct dilatation status post cholecystomy. This may reflect the postcholecystectomy state. Correlate with LFTs. If abnormal, could consider MRCP for further evaluation.
--- NOTE | 2024-09-20 14:57 | P.HP ---
Certification for Inpatient Patient admitted to: Inpatient With expected LOS: >2 Midnights Patient will require the following post-hospital care: None Practitioner: I am a practitioner with admitting privileges, knowledge of patient current condition, hospital course, and medical plan of care. Services: Services provided to patient in accordance with Admission requirements found in Title 42 Section 412.3 of the Code of Federal Regulations Patient History Date of Service: 09/20/24 Reason for admission: Nausea and vomiting History of Present Illness: 84-year-old female history of COPD, pancreatitis, dementia, hypertension presents to the emergency department chief complaint of nausea and vomiting. She reports she woke up feeling nauseous and that she has had many episodes similar to this in the past, last episode was around 3 months ago. She reports they typically resolve in 24 to 36 hours on their own. She denies any abdominal pain, does report chronic back pain which is worse at this time. 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 CT abdomen pelvis was negative for acute findings but did show pathologically enlarged right ileuocolic lymph node is new since 06/28/24 but of uncertain significance. Is probably reactive. Patient failed p.o. challenge after IV fluids and antiemetics, ED provider wishes to admit under observation for intractable vomiting. Of note patient has a history of leaving AMA, at this time she is currently alert, oriented x 4 and of decision-making capacity. Allergies codeine Allergy (Verified 11/01/23 13:19) Nausea/Vomiting acetaminophen [From Tylenol] Adverse Reaction (Verified 11/01/23 13:19) Nausea/Vomiting tramadol Adverse Reaction (Verified 11/01/23 13:19) Nausea/Vomiting Home Medications: Omeprazole 1 cap PO DAILY 07/27/22 Melatonin 1 mg PO BEDTIME 11/01/23 Ciprofloxacin HCl [Cipro] 500 mg PO BID #12 tab 02/16/24 Tramadol HCl [Ultram] 50 mg PO DAILY 02/16/24 metroNIDAZOLE [Flagyl] 500 mg PO Q8H #18 tab 02/16/24 - Past Medical/Surgical History Diabetic: No -: COPD -: Alzheimer's disease -: pancreatitis -: liver cirrhosis -: kidney disease -: bladder -: tonsilectomy -: appendectomy -: double mastectomy with reconstruction -: cholecystectomy -: gall bladder removed 2002 -: abdominal surgery Psychosocial/ Personal History: Lives at home with her daughter - Family History Mother Notes: ALZHEIMERS Brother -: GI disease Notes: internal bleeding - Social History Alcohol use: No CD- Drugs: No Caffeine use: Yes Place of Residence: Home Review of Systems 10-point ROS is otherwise unremarkable Gastrointestinal: Nausea, Vomiting Physical Examination - Physical Exam General: Alert, In no apparent distress, Oriented x3 HEENT: Atraumatic, PERRLA, EOMI Neck: Supple, 2+ carotid pulse no bruit, No LAD, Without JVD or thyroid abnormality Respiratory: Clear to auscultation bilaterally, Normal air movement Cardiovascular: Regular rate/rhythm, Normal S1 S2 Gastrointestinal: Normal bowel sounds, No tenderness Musculoskeletal: No tenderness Integumentary: No rashes Neurological: Normal gait, Normal speech, Normal strength at 5/5 x4 extr, Normal affect - Studies Laboratory Data (last 24 hrs) 09/20/24 09/20/24 09/20/24 08:20 08:20 08:20 WBC 10.00 Hgb 14.5 Hct 42.3 Plt Count 315 PT 11.8 INR 1.13 Sodium 143 Potassium 2.8 L BUN 7 Creatinine 0.78 Glucose 107 H Magnesium 1.9 Total Bilirubin 0.8 AST 15 ALT < 14 Alkaline Phosphatase 77 Lipase 30 Assessment and Plan - Plan Assessment: Intractable nausea and vomiting Hypokalemia Dementia History of pancreatitis/diverticulitis Hypertension Plan: Intractable nausea and vomiting Hypokalemia Continue potassium containing IV fluids As needed antiemetics CT negative for acute findings Advance diet as tolerated Dementia Currently oriented x 3 Continue home medications when verified History of pancreatitis/diverticulitis Check lipase in the morning No signs of acute diverticulitis or pancreatitis at this time Hypertension Continue home medication DVT PPX: Lovenox Code status: Full Discharge Plan: Home Plan to discharge in: 24 Hours - Advance Directives Does patient have a Living Will: No Does patient have a Durable POA for Healthcare: No - Code Status/Comfort Care Code Status Assessed: Yes (Full code) Critical Care: No Time Spent Managing Pts Care (In Minutes): 65
[2024-09-20] MEDS ORDERED: MORPHINE 2 MG/ML SYR IV PRN (16:44)
[2024-09-20] MEDS: ONDANSETRON 4 MG/2 ML VIAL IV PRN (16:57)
[2024-09-20] MEDS: D5.45NS W/KCL 20MEQ 1,000 ML IV SCH (16:57)
[2024-09-20 17:00] VITALS: O2SAT 98
[2024-09-21] MEDS: MORPHINE 2 MG/ML SYR IV ONE (04:31)
[2024-09-21 06:45] LABS: Absolute Eosinophils 1.1 K/uL (0-0.5); Absolute Lymphocytes (CBC) 1.6 K/uL (0.7-4.9); Absolute Monocytes 0.4 K/uL (0.1-1.3); Absolute Neutrophil 4.7 K/uL (1.8-8.0); Basophils % 0.6 % (0-1.3); Eosinophils % 14.3 % (0-4.4); Hematocrit 37.2 % (36.0-45.0); Hemoglobin 12.9 g/dL (12.0-15.0); Lymphocytes % 20.1 % (15.3-44.8); MCH 31.8 pg (27.0-35.0); MCHC 34.8 g/dL (32.0-36.0); MCV 91.6 fL (80-100); MPV 7.4 fL (7.6-11.3); Monocytes % 4.9 % (3.3-12.3); Neutrophils % 60.1 % (41.7-73.7); Nucleated Red Blood Cells % 0.2 % (0-0); Platelets 281 thou/uL (152-406); RBC Red Blood Cell Count 4.06 M/uL (3.86-4.86); Red Cell Distribution Width 14.3 % (12.1-15.2)
[2024-09-21 07:14] LABS: AST/SGOT 12 U/L (15-37); Albumin 2.6 g/dL (3.4-5.0); Albumin/Globulin Ratio 0.8 (1.1-1.8); Alkaline Phosphatase 66 U/L (45-117); Anion Gap 7.9 mEq/L (5.0-15.0); BUN Blood Urea Nitrogen 5 mg/dL (7-18); Bicarbonate 26 mEq/L (21-32); Bilirubin Total 0.5 mg/dL (0.2-1.0); Globulin 3.1 g/dL (2.3-3.5); Glomerular Filtration Rate 86 ml/min (=/>90); Glucose Level 110 mg/dL (74-106); Lipase 29 U/L (13-75); Potassium 2.9 mEq/L (3.5-5.1); Protein, Total 5.7 g/dL (6.4-8.2); Sodium Level 140 mEq/L (136-145); Thyroid Stimulating Hormone 0.961 uIU/mL (0.358-3.740)
[2024-09-21 07:15] LABS: ALT/SGPT < 14 U/L (13-56)
[2024-09-21] MEDS: MEMANTINE HCL 10 MG TABLET PO SCH (08:03)
[2024-09-21] MEDS: MIRTAZAPINE 15 MG TAB PO SCH (08:03)
[2024-09-21] MEDS: ENOXAPARIN 40 MG/0.4 ML SQ SCH (08:03)
[2024-09-21] MEDS: KCL 20 MEQ/100 mL IVPB 20 MEQ/100 ML BAG IV SCH (08:15)
[2024-09-21] MEDS ORDERED: SODIUM CHLORIDE 0.9% 10ML INJ IV PRN (08:33)
[2024-09-21] MEDS: PANTOPRAZOLE 40 MG INJ IVP SCH (08:52)
--- NOTE | 2024-09-21 09:15 | P.PN ---
Date of Service: 09/21/24 Subjective: Still with complaints of nausea, back pain No acute events overnight ROS: 10 point ROS as noted above, otherwise negative Physical exam GEN: Alert, oriented, NAD HEENT: Normal conjunctiva, sclera anicteric CV: Regular rate and rhythm, no edema Pulm: Nonlabored respirations on room air ABD: Soft, nontender, nondistended MSK: No joint tenderness Integumentary: No rashes Neuro: Normal speech, normal affect Vitals reviewed Assessment: Intractable nausea and vomiting Hypokalemia Dementia History of pancreatitis/diverticulitis Hypertension Chronic back pain Plan: Intractable nausea and vomiting Hypokalemia Continue potassium containing IV fluids As needed antiemetics CT negative for acute findings Advance diet as tolerated Dementia Currently oriented x 3 Continue home medications when verified History of pancreatitis/diverticulitis Check lipase in the morning No signs of acute diverticulitis or pancreatitis at this time Hypertension Continue home medication Chronic back pain It appears that she takes meperidine 75 mg once daily as needed for back pain at home We do not have meperidine p.o. in the hospital, pharmacy does not allow for IV Demerol to be given on the floor Will increase dose of morphine as needed for pain DVT PPX: Lovenox Code status: Full Discharge Plan: Home Plan to discharge in: 24 Hours Time Spent Managing Pts Care (In Minutes): 35
[2024-09-21] MEDS: MORPHINE 4 MG/ML SYR IV PRN (10:25)
[2024-09-21] MEDS: PROMETHAZINE INJ 25 MG/ML AMP IV PRN (13:45)
[2024-09-21] MEDS: HYDROMORPHONE HCL 0.5 MG/0.5 ML INJ IV PRN (16:41)
[2024-09-21] MEDS: DONEPEZIL HCL 5 MG TAB PO SCH (20:26)
[2024-09-22 07:05] LABS: Absolute Eosinophils 1.2 K/uL (0-0.5); Absolute Monocytes 0.5 K/uL (0.1-1.3); Basophils % 0.4 % (0-1.3); Eosinophils % 18.3 % (0-4.4); Hematocrit 38.9 % (36.0-45.0); Hemoglobin 13.2 g/dL (12.0-15.0); Lymphocytes % 30.4 % (15.3-44.8); MCH 31.5 pg (27.0-35.0); MCV 92.7 fL (80-100); MPV 7.3 fL (7.6-11.3); Neutrophils % 43.9 % (41.7-73.7); Nucleated Red Blood Cells % 0.1 % (0-0); Platelets 263 thou/uL (152-406); RBC Red Blood Cell Count 4.19 M/uL (3.86-4.86); Red Cell Distribution Width 14.4 % (12.1-15.2)
[2024-09-22 07:08] LABS: Albumin 2.5 g/dL (3.4-5.0); Albumin/Globulin Ratio 0.8 (1.1-1.8); Alkaline Phosphatase 63 U/L (45-117); Anion Gap 5.6 mEq/L (5.0-15.0); BUN Blood Urea Nitrogen 3 mg/dL (7-18); Bicarbonate 27 mEq/L (21-32); Bilirubin Total 0.5 mg/dL (0.2-1.0); Glomerular Filtration Rate 82 ml/min (=/>90); Glucose Level 110 mg/dL (74-106); Lipase 22 U/L (13-75); Potassium 3.6 mEq/L (3.5-5.1); Protein, Total 5.5 g/dL (6.4-8.2); Sodium Level 140 mEq/L (136-145)
[2024-09-22 07:09] LABS: ALT/SGPT < 14 U/L (13-56); AST/SGOT < 10 U/L (15-37)
[2024-09-22] MEDS: D5.45NS W/KCL 20MEQ 1,000 ML IV SCH (07:20)
--- NOTE | 2024-09-22 09:28 | P.PN ---
Date of Service: 09/22/24 Subjective: Symptoms improving Still with some nausea Will try to advance diet ROS: 10 point ROS as noted above, otherwise negative Physical exam GEN: Alert, oriented, NAD HEENT: Normal conjunctiva, sclera anicteric CV: Regular rate and rhythm, no edema Pulm: Nonlabored respirations on room air ABD: Soft, nontender, nondistended MSK: No joint tenderness Integumentary: No rashes Neuro: Normal speech, normal affect Vitals reviewed Assessment: Intractable nausea and vomiting Hypokalemia Dementia History of pancreatitis/diverticulitis Hypertension Chronic back pain Plan: Intractable nausea and vomiting Hypokalemia Continue potassium containing IV fluids As needed antiemetics CT abd/pel negative for acute findings 09/20 Advance diet as tolerated Dementia Currently oriented x 3 Continue home medications when verified History of pancreatitis/diverticulitis No signs of acute diverticulitis or pancreatitis at this time Hypertension Continue home medication Chronic back pain It appears that she takes meperidine 75 mg once daily as needed for back pain at home We do not have meperidine p.o. in the hospital, pharmacy does not allow for IV Demerol to be given on the floor Swithced to low dose iv dilaudid with good effect DVT PPX: Lovenox Code status: Full Discharge Plan: Home Plan to discharge in: 24 Hours Time Spent Managing Pts Care (In Minutes): 35
[2024-09-22 09:54] LABS: Blood Morphology Comment NOT SEEN (NOT SEEN); Differential Total Cells Count 100; Eosinophils 11 % (0-3); Lymphocytes 33 % (15-42); Monocytes 8 % (0-10); Platelet Estimate ADEQ; Segmented Neutrophils 48 % (40-80)
[2024-09-22] MEDS: LIDOCAINE 4% PATCH TOP PRN (10:56)
[2024-09-22 19:28] VITALS: BMI 18.7
[2024-09-23 08:10] LABS: Absolute Eosinophils 1.4 K/uL (0-0.5); Absolute Lymphocytes (CBC) 1.6 K/uL (0.7-4.9); Absolute Monocytes 0.5 K/uL (0.1-1.3); Basophils % 0.4 % (0-1.3); Eosinophils % 16.1 % (0-4.4); Hematocrit 38.7 % (36.0-45.0); Hemoglobin 13.2 g/dL (12.0-15.0); Lymphocytes % 18.9 % (15.3-44.8); MCH 31.3 pg (27.0-35.0); MCV 92.1 fL (80-100); MPV 7.6 fL (7.6-11.3); Monocytes % 5.8 % (3.3-12.3); Neutrophils % 58.8 % (41.7-73.7); Nucleated Red Blood Cells % 0.1 % (0-0); Platelets 225 thou/uL (152-406)
[2024-09-23] MEDS: ACETAMINOPHEN 325 MG TABLET PO PRN (08:19)
[2024-09-23 08:24] LABS: Albumin 2.6 g/dL (3.4-5.0); Albumin/Globulin Ratio 0.8 (1.1-1.8); Alkaline Phosphatase 68 U/L (45-117); Anion Gap 8.9 mEq/L (5.0-15.0); BUN Blood Urea Nitrogen 7 mg/dL (7-18); Bicarbonate 27 mEq/L (21-32); Bilirubin Total 0.4 mg/dL (0.2-1.0); Globulin 3.3 g/dL (2.3-3.5); Glomerular Filtration Rate 61 ml/min (=/>90); Glucose Level 87 mg/dL (74-106); Lipase 41 U/L (13-75); Potassium 3.9 mEq/L (3.5-5.1); Protein, Total 5.9 g/dL (6.4-8.2); Sodium Level 141 mEq/L (136-145)
[2024-09-23 08:25] LABS: ALT/SGPT < 14 U/L (13-56); AST/SGOT < 10 U/L (15-37)
--- NOTE | 2024-09-23 11:41 | P.PN ---
Date of Service: 09/23/24 Subjective: Awake, lying on her left side, c/o back pain reports able to eat with no emesis, belching during exam Family denies use of marijuana, reports N/V has been a problem for a while, reports chronic pain and agitation Urinalysis pending ROS: 10 point ROS as noted above, otherwise negative Physical exam GEN: Alert, oriented x2, NAD HEENT: Normal conjunctiva, sclera anicteric CV: NSR, no edema Pulm: Clear BBS, on room air ABD: Soft, nontender, nondistended MSK: No joint tenderness Integumentary: No rashes Neuro: Normal speech, normal affect Vitals reviewed Assessment: Intractable nausea and vomiting Hypokalemia Dementia History of pancreatitis/diverticulitis Hypertension Chronic back pain Plan: Intractable nausea and vomiting Hypokalemia- improved Continue potassium containing IV fluids As needed antiemetics CT abd/pel negative for acute findings 09/20 Advance diet as tolerated, on soft bite sized Will need outpatient EGD Dementia Currently oriented x 3 Continue home medications when verified History of pancreatitis/diverticulitis No signs of acute diverticulitis or pancreatitis at this time Hypertension Continue home medication Chronic back pain It appears that she takes meperidine 75 mg once daily as needed for back pain at home We do not have meperidine p.o. in the hospital, pharmacy does not allow for IV Demerol to be given on the floor Swithced to low dose iv dilaudid with good effect DVT PPX: Lovenox Code status: Full Discharge Plan: Home Plan to discharge in: 24 Hours
[2024-09-23] MEDS: SUCRALFATE 1GM/10ML UCUP PO SCH (14:28)
[2024-09-23] MEDS ORDERED: HYDRALAZINE HCL 20 MG/ML VIAL IV PRN (18:13)
[2024-09-24 07:05] LABS: Absolute Eosinophils 1.4 K/uL (0-0.5); Absolute Lymphocytes (CBC) 1.5 K/uL (0.7-4.9); Absolute Monocytes 0.4 K/uL (0.1-1.3); Absolute Neutrophil 4.7 K/uL (1.8-8.0); Basophils % 0.4 % (0-1.3); Eosinophils % 17.2 % (0-4.4); Hematocrit 36.3 % (36.0-45.0); Hemoglobin 12.5 g/dL (12.0-15.0); Lymphocytes % 18.7 % (15.3-44.8); MCHC 34.5 g/dL (32.0-36.0); MCV 92.7 fL (80-100); MPV 7.4 fL (7.6-11.3); Monocytes % 5.5 % (3.3-12.3); Neutrophils % 58.2 % (41.7-73.7); Nucleated Red Blood Cells % 0.1 % (0-0); Platelets 203 thou/uL (152-406); RBC Red Blood Cell Count 3.92 M/uL (3.86-4.86); Red Cell Distribution Width 13.9 % (12.1-15.2)
[2024-09-24 08:24] LABS: Bilirubin Total 0.4 mg/dL (0.2-1.0)
[2024-09-24 08:25] LABS: Albumin 2.7 g/dL (3.4-5.0); Albumin/Globulin Ratio 0.8 (1.1-1.8); Globulin 3.3 g/dL (2.3-3.5)
--- NOTE | 2024-09-24 11:55 | P.DS ---
Admission Date: 09/21/24 Discharge Date: 09/24/24 Disposition: ROUTINE DISCHARGE Discharge Condition: GOOD Reason for Admission: Nausea and vomiting Brief History of Present Illness: Diagnosis Intractable nausea and vomiting Hypokalemia Dementia History of pancreatitis/diverticulitis Hypertension Chronic back pain HPI 09/20/2024 Milan Weir is an 84-year-old female history of COPD, pancreatitis, dementia, hypertension presents to the emergency department chief complaint of nausea and vomiting. She reports she woke up feeling nauseous and that she has had many episodes similar to this in the past, last episode was around 3 months ago. She reports they typically resolve in 24 to 36 hours on their own. She denies any abdominal pain, does report chronic back pain which is worse at this time. 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 CT abdomen pelvis was negative for acute findings but did show pathologically enlarged right ileuocolic lymph node is new since 06/28/24 but of uncertain significance. Is probably reactive. Patient failed p.o. challenge after IV fluids and antiemetics, ED provider wishes to admit under observation for intractable vomiting. Of note patient has a history of leaving AMA, at this time she is currently alert, oriented x 4 and of decision-making capacity. Hospital Course: Milan was treated for intractable nausea/vomiting with laboratory evaluation showing hypokalemia. CT abdomen pelvis negative for acute findings. She tolerated n.p.o. status and has tolerated diet successfully. She has tolerated and responded well to Carafate and Protonix she has a history of nausea vomiting that usually resolves within a few days. Prior to discharge, she has been able to eat regular food with minimal nausea, and tolerated electrolyte replacement. On 09/24/2024, Milan was seen on morning rounds and deemed medically stable for discharge. Milan was discharged with instructions to schedule follow-up appointments with Dr. Barksdale and PCP. Milan was provided prescriptions for Carafate, Protonix, lidocaine patch. Physical exam GEN: AAO x2, NAD, conversing well HEENT: Normal conjunctiva, sclera anicteric CV: NSR, no edema Pulm: Clear BBS, nonlabored breathing on room air ABD: Soft and benign on palpation, ND/NT MSK: No joint tenderness Integumentary: No rashes Neuro: Normal speech, normal affect Vital Signs/Physical Exam: Temp Pulse Resp BP Pulse Ox 97.8 F 71 16 140/81 95 09/24/24 08:00 09/24/24 08:00 09/24/24 08:00 09/24/24 08:00 09/24/24 08:00 Laboratory Data at Discharge: WBC 8.00 thou/uL (4.3-10.9) 09/24/24 06:51 Hgb 12.5 g/dL (12.0-15.0) 09/24/24 06:51 Hct 36.3 % (36.0-45.0) 09/24/24 06:51 Plt Count 203 thou/uL (152-406) 09/24/24 06:51 PT 11.8 SECONDS (9.4-12.5) 09/20/24 08:20 INR 1.13 09/20/24 08:20 Sodium 139 mEq/L (136-145) 09/24/24 07:44 Potassium 4.0 mEq/L (3.5-5.1) 09/24/24 07:44 BUN 7 mg/dL (7-18) 09/24/24 07:44 Creatinine 0.83 mg/dL (0.55-1.02) 09/24/24 07:44 Glucose 107 mg/dL (74-106) H 09/24/24 07:44 Magnesium 1.9 mg/dL (1.6-2.4) 09/20/24 08:20 Total Bilirubin 0.4 mg/dL (0.2-1.0) 09/24/24 07:44 AST 9 U/L (15-37) L 09/24/24 07:44 ALT 11 U/L (13-56) L 09/24/24 07:44 Alkaline Phosphatase 65 U/L (45-117) 09/24/24 07:44 Lipase 41 U/L (13-75) 09/24/24 07:44 Home Medications: Tramadol HCl [Ultram] 50 mg PO PRN 02/16/24 Donepezil [Aricept*] 5 mg PO BEDTIME 09/20/24 Memantine HCl 5 mg PO DAILY 09/20/24 Meperidine HCl 50 mg PO BID 09/20/24 Mirtazapine 15 mg PO DAILY 09/20/24 Promethazine HCl 12.5 mg PO PRN PRN 09/20/24 Promethazine Suppos [Phenergan -Suppos*] 12.5 mg RC PRN 09/20/24 Tramadol HCl [Ultram] 50 mg PO PRN 09/20/24 Lidocaine 4% Patch [Lidoderm 5% Patch*] 1 patch TOP DAILY PRN 12 Days #12 pat 09/24/24 Pantoprazole Sodium [Protonix] 40 mg PO DAILY 40 Days #30 tab 09/24/24 Sucralfate [Carafate*] 10 ml PO QID 10 Days #1 bottle 09/24/24 New Medications: Sucralfate [Carafate*] 10 ml PO QID 10 Days #1 bottle Lidocaine 4% Patch [Lidoderm 5% Patch*] 1 patch TOP DAILY PRN 12 Days #12 pat PRN Reason: Pain Scale 5-7 (Moderate) Pantoprazole Sodium [Protonix] 40 mg PO DAILY 40 Days #30 tab Physician Discharge Instructions: 1. Please call and schedule a follow-up appointment with your PCP in 3-5 days - Please follow-up with your PCP for medication refills/adjustments 2. Please call and schedule a follow-up appointment with Dr. Tomlinson in one week -Dr. Tomlinson will manage nausea symptoms and will likely need an EGD for further evaluation 3. Continue Regular diet 4. No activity restrictions 5. Return to the ED if symptoms worsen New medications Carafate 10 mL 4 times daily Protonix 40 mg daily Lidocaine patch daily applied to back Diet: Regular Activity: Ad taty Followup: NONE,NONE [Primary Care Provider] - Edenilson Tomlinson MD [ASSOCIATE-ACTIVE - CAN ADMIT] - 1 Week
[2024-09-24 12:41] VITALS: BP 138/74; TEMP 98.3
--- NOTE | 2024-09-25 13:09 | EKG ---
Test Date: 2024-09-20 Test Time: 14:01:15 Aircraft Inspection Record Clerk: MERYL MEASUREMENT RESULTS: Intervals: Rate: 60 AR: 140 QRSD: 70 QT: 476 QTc: 476 [place]: P: 73 AR: 140 QRS: 11 T: 50 INTERPRETIVE STATEMENTS: Normal sinus rhythm ST abnormality, possible digitalis effect Abnormal ECG Compared to ECG 06/08/2024 23:54:57 ST (T wave) deviation now present Electronically Signed On 09-25-24 13:02:24 SAUSAGE LINKER by Regis Guevara
== END 2024-09-24 12:53 | disposition home or self-care (01) | DRG 641 ==
LOC: ER 08:01 → ERHOLD 14:25 → 4TH 15:41 → OBSVTOIN 09-21 15:42
PROVIDERS: ADMIT Hospitalist; ATTEND Internal Medicine
DX: E87.6 Hypokalemia (principal); G89.29 Other chronic pain; M54.9 Dorsalgia, unspecified; J44.9 Chronic obstructive pulmonary disease, unspecified; G30.9 Alzheimer's disease, unspecified; F02.80 Dementia in other diseases classified elsewhere, unspecified severity, without behavioral disturbance, psychotic disturbance, mood disturbance, and anxiety; Z90.49 Acquired absence of other specified parts of digestive tract; Z88.5 Allergy status to narcotic agent; Z90.710 Acquired absence of both cervix and uterus; Z90.13 Acquired absence of bilateral breasts and nipples; Z79.899 Other long term (current) drug therapy
CPT/HCPCS: 36415; 71045; 74176; 80048; 80053; 80076; 83690; 83735; 83880; 84132; 84439; 84443; 84484; 85025; 85610; 93005; 96361; 96374; 96375; 97116; 97161; 97530; 99284; G0378; J0360; J1171; J1650; J2003; J2270; J2405; J2470; J2550; J3010; J3480; J7040

== ENCOUNTER 2024-10-04 14:09 | Emergency (ER) | payer OTHER, BC ==
--- OUTSIDE RECORDS SUMMARY | 2024-10-04 14:12 | XMS REPORT | Continuity of Care Document ---
Author Name Unknown Address [address] [place] [address] [facility] Address [address] [place] [address] Care Team Providers Care Karate Instructor Name Role Phone PCP, PATIENT DOES NOT HAVE A Primary Care Physic padmini Unavailable SIRISHA ROSARIO Attending Clinician Unavail Sirisha Cruz MD Attending Clinician [email or web address]_S Attending Clinician UnavailNIECY Barber Attending Clinician Unavailab Niecy Collazo DO Attending Clinician RADIOLOGY Attending Clinician Unavailable Radiology Attending Clinician Unavailable MIKHAIL HURTADO Attending Clinician Unavailab sil [email or web address]_S Admitting Clinician UnavailNIECY Barber Admitting Clinician Unavailab MEKA Ricks Admitting Clinician Unavailable MIKHAIL HURTADO Admitting Clinician Unavailab le Payers Payer Name Policy Type Policy Number Effective Date Expirati on Date Source BCBS ESSENTIALS COMM [id number] 2017 00:00:00 [employer] MEDICARE OON Medicare [id number] 00:00:00 FOR LIFE Other [id number] 2021 00:00:00 MEDICARE PART A \T\ B [id number] 2004 00:00:00 BCBS TRADITIONAL [id number] 2017 00:00:00 Problems Condition Name Condition Details [...] problems No known active problems Disease [facility] Acute pancreatit is Acute pancreatit is Disease Resolve d 09-17 00:00: 2024-09-17 00:00:00 2024-09-17 10:06:57 Layton Villaseñor Chronic cough Chronic cough Disease Resolve d 09-17 00:00: 2024-09-17 00:00:00 2024-09-17 10:06:57 Layton Villaseñor Elevated LFTs Elevated LFTs Disease Resolve d 09-17 00:00: 00 2024-09-17 00:00:00 2024-09-17 10:06:57 Layton Garcia Epic Lactic acidosis Lactic acidosis Disease Resolve d 09-17 00:00: 00 2024-09-17 00:00:00 2024-09-17 10:06:57 Layton Villaseñor Lip swelling Lip swelling Disease Resolve d 09-17 00:00: 00 2024-09-17 00:00:00 2024-09-17 10:06:57 Layton Villaseñor Vomiting Vomiting Disease Resolve d 09-17 00:00: 00 2024-09-17 00:00:00 2024-09-17 10:06:57 Layton Villaseñor Allergies, Adverse Reactions, Alerts Allergy Name Allergy Type Status Severity Reaction(s) Onset Date Inactive Date Treating Clinician Comments Source CODEINE DRUG INGREDI Active N/V 09-18 00:00: 00 [facility] Codeine Propensi ty to adverse reaction s Active Nausea and/or Vomiting 09-18 00:00: 00 [facility] Acetamin ophen Propensi ty to adverse reaction s Active GI intolerance 10-08 00:00: 00 Layton Villaseñor Codeine Allergy to substanc e Active Nausea And Vomiting, GI intolerance 10-08 00:00: 00 Layton Villaseñor NO KNOWN ALLERGIE S Drug Class Active [facility] Social History Social Habit Start Date Stop Date Quantity Comments Source Gender identity 2023-11-25 02:02:51 Identifies as female gender (finding) [facility] ASSERTION Possible [facility] History of tobacco use Passive smoker [facility] Sexual orientation [facility] Tobacco use and exposure 2024-09-17 00:00:00 2024-09-17 00:00:00 Smokeless tobacco non-user [facility] Alcoholic beverage intake 2024-09-17 00:00:00 2024-09-17 00:00:00 Lifetime non-drinker (finding) [facility] History of Social function 2024-09-17 00:00:00 2024-09-17 00:00:00 [facility] Exposure to SARS-CoV-2 (event) 2022-09-08 00:00:00 2022-09-18 09:01:00 Not sure [facility] Sex Assigned At 1940 00:00:00 1940 00:00:00 [facility] Smoking Status Start Date Stop Date Source Tobacco smoking consumption unknown [facility] Ex-smoker 2024-09-17 00:00:00 2024-09-17 00:00:00 [facility] Medications Ordered Medication Name Filled Medication Name Start Date Stop Date Current Medication? Ordering Clinician Indication Dosage Frequency Signature (SIG) Comments Components Source diphenhydrA MINE HCl, Sleep, (ZZZQUIL PO) diphenhydrA MINE HCl, Sleep, (ZZZQUIL PO) 09-17 09:49: 46 Yes Take by mouth. [facility] mirtazapine (Remeron) 15 MG tablet mirtazapine (Remeron) 15 MG tablet 09-17 00:00: 00 Yes 15mg Take 1 tablet by mouth at bedtime. [facility] memantine (Namenda) 5 MG tablet memantine (Namenda) 5 MG tablet 09-17 00:00: 00 03-16 23:59 :00 No 5mg Q.5D Take 1 tablet by mouth in the morning and 1 tablet in the evening. [facility] donepezil (Aricept) 5 MG tablet donepezil (Aricept) 5 MG tablet 09-17 00:00: 00 03-16 23:59 :00 No 5mg Take 1 tablet by mouth at bedtime. Layton Garcia Epic meperidine (Demerol) 50 MG tablet meperidine (Demerol) [...] BY MOUTH DAILY AT BEDTIME. Layton Garcia Epic donepezil (Aricept) 5 MG tablet donepezil (Aricept) 5 MG tablet 2022-09- 00:00: 00 09-17 00:00 :00 No See Instructio ns, TAKE ONE (1) TABLET(S) BY MOUTH DAILY., # 30 ea, 3 Refill(s), Pharmacy: [place] [id number], 162.56, cm, 06/14/23 9:48:00 CDT, Height, 61.023, kg, 06/14/23 9:48:00 CDT, Weight Layton Villaseñor memantine (Namenda) 5 MG tablet memantine (Namenda) 5 MG tablet 2022-09 00:00: 00 09-17 00:00 :00 No See Instructio ns, TAKE ONE (1) TABLET(S) BY MOUTH TWICE A DAY., # 60 ea, 3 Refill(s), Pharmacy: [place] [id number], 162.56, cm, 06/14/23 9:48:00 CDT, Height, 61.023, kg, 06/14/23 9:48:00 CDT, Weight Layton Villaseñor omeprazole (PriLOSEC) [address] capsule omeprazole (PriLOSEC) [address] capsule 6-08 00:00: 00 Yes TAKE ONE (1) CAPSULE(S) BY MOUTH DAILY NEEDED. Layton Villaseñor No known medications 1-16 09:05: 08 No No known medication s [facility] gadoteridol (PROHANCE-1 5 mL) injection 0.2 mL/kg 2019-09 21:45: 00 08-12 22:15 :00 No .2mL/kg 0.2 mL/kg, Intravenou s, ONCE, 1 dose, Leni 08/12/20 at 1545, Routine [facility] Vital Signs Vital Name Observation Time Observation Value Comments S humberto Body height 2024-09-17 10:05:00 162.6 cm Miguel A rial [facility] Body weight 2024-09-17 10:05:00 51.256 kg Miguel A rial [facility] [facility] BMI 2024-09-17 10:05:00 19.40 kg/m2 Miguel A rial [facility] Oxygen saturation in Arterial blood by Pulse oximetry 2024-09-17 10:05:00 97 /min [facility] Systolic blood pressure 2024-09-17 10:05:00 142 mm[Hg] [facility] Diastolic blood pressure 2024-09-17 10:05:00 82 mm[Hg] [facility] Heart rate 2024-09-17 10:05:00 83 /min [facility] Body temperature 2024-09-17 10:05:00 36.28 Keesha [facility] Respiratory rate 2024-09-17 10:05:00 16 /min [facility] Body height 2024-09-17 10:05:00 162.6 cm [facility] Body weight 2024-09-17 10:05:00 51.256 kg Miguel A rial [facility] BMI 2024-09-17 10:05:00 19.40 kg/m2 Miguel A rial [facility] Oxygen saturation in Arterial blood by Pulse oximetry 2024-09-17 10:05:00 97 /min [facility] Systolic blood pressure 2024-09-17 10:05:00 142 mm[Hg] [facility] Diastolic blood pressure 2024-09-17 10:05:00 82 mm[Hg] [facility] Heart rate 2024-09-17 10:05:00 83 /min [facility] Body temperature 2024-09-17 10:05:00 36.28 Keesha [facility] Respiratory rate 2024-09-17 10:05:00 16 /min [facility] Heart rate 2022-09-18 16:44:00 62 /min [facility] Respiratory rate 2022-09-18 16:44:00 20 /min [facility] Oxygen saturation in Arterial blood by Pulse oximetry 2022-09-18 16:44:00 99 /min [facility] Systolic blood pressure 2022-09-18 16:00:18 153 mm[Hg] [facility] Diastolic blood pressure 2022-09-18 16:00:18 86 mm[Hg] [facility] Body temperature 2022-09-18 15:03:00 36.89 Keesha [facility] Body height 2022-09-18 15:03:00 160 cm [facility] Body weight 2022-09-18 15:03:00 53.524 kg [facility] BMI 2022-09-18 15:03:00 20.90 kg/m2 [facility] Procedures Procedure Date / Time Performed Performing Clinicia n Source CT TRAUMA HEAD WO CONTRAST 2022-09-18 15:55:32 Niecy Ball [facility] CT TRAUMA CERVICAL SPINE WO CONTRAST 2022-09-18 15:55:32 Niecy Ball [facility] XR SHOULDER <2 VW LEFT 2022-09-18 15:40:40 Ashley Ball [facility] NOTICE OF PRIVACY PRACTICES 2022-09-18 14:59:10 Doctor Unassigned, [place] [facility] CONSENT/REFUSAL FOR DIAGNOSIS AND TREATMENT 2022-09-18 14:58:45 Doctor Unassigned, [place] [facility] MR ABDOMEN W WO CONTRAST MRCP 2020-08-12 22:16:07 Requisition, Paper [facility] NOTICE OF PRIVACY PRACTICES 2020-08-12 21:10:37 Doctor Unassigned, [place] [facility] CONSENT/REFUSAL FOR DIAGNOSIS AND TREATMENT 2020-08-12 21:10:07 Doctor Unassigned, [place] [facility] ASSIGNMENT OF BENEFITS 2020-08-12 21:09:46 Docto r Unassigned, [place] [facility] Encounters Start Date/Time End Date/Time Encounter Type Admission Type Attending [facility] Care Department Encounter ID Source 2024-09-17 09:39:26 2024-09-17 10:27:49 Outpatient Elective SIRISHA ROSARIO [facility] [id number] [facility] 2024-09-17 09:30:00 2024-09-17 10:27:49 Office Visit Sirisha Rosario [id number] Layton Garcia [facility] 2024-04-17 00:00:00 2024-04-18 10:18:36 Refill Sirisha Rosario [place] [id number] Layton Garcia [facility] 2023-07-03 00:00:00 2023-07-03 00:00:00 Outpatient [email or web address] diyala_S PRIV PRIV [id number] [facility] 2023-07-02 00:00:00 2023-07-02 00:00:00 Outpatient [email or web address] diyala_S PRIV PRIV [id number] [facility] 2022-09-18 09:05:00 2022-09-18 10:46:00 Emergency X NIECY BALL [facility] ERT [id number] [facility] 2022-09-18 09:05:00 2022-09-18 10:46:00 Emergency Niecy Ball [facility] [id number] [facility] 2020-08-12 15:11:31 2020-08-12 23:59:00 Outpatient R RADIOLOGY [facility] [id number] [facility] 2020-08-12 15:00:00 2020-08-12 23:59:00 Hospital Encounter Radiology [facility] [id number] 2020-08-12 15:00:00 2020-08-12 23:59:00 Hospital Encounter Radiology [facility] [id number] [facility] Results Test Description Test Time [...] without and with contrast including MRCP studies. [facility] Jose R, [id number] 09:33:00* Test Item Value Reference Range Interpretation [...] assessment and management of chronic kidney failure. [facility]
--- NOTE | 2024-10-04 16:21 | ER ---
Nurse's Notes [facility] Name: Milan Weir Age: 84 yrs Sex: Female : 1940 Arrival Date: 10/04/2024 Time: 14:09 Bed IW10 Private MD: Diagnosis: Dorsalgia, unspecified;Nausea;Abdominal pain, unspecified Presentation: 10/04 14:23 Method Of Arrival: EMS: [facility] 10 14:28 Chief complaint: EMS states: Called to patient's home due to patient having back pain. cm10 Pt has a history of chronic back pain. Pt reports that only Demerol and Phenergan help her pain. Pt also complaining of vomiting. Coronavirus screen: Client denies travel out of the [place] in the last 14 days. Ebola Screen: Patient denies travel to an Ebola-affected area in the 21 days before illness onset. Risk Assessment: Do you want to hurt yourself or someone else? Patient reports no desire to harm self or others. Onset of symptoms was October 04, 2024. 14:49 Initial Sepsis Screen: Does the patient meet any 2 criteria? No. Patient's initial cm10 sepsis screen is negative. Does the patient have a suspected source of infection? No. Patient's initial sepsis screen is negative. 14:49 Acuity: JARRETT 3 cm10 Triage Assessment: 14:50 General: Appears uncomfortable, Behavior is calm, cooperative. Neuro: No deficits cm10 noted. Level of Consciousness is awake, alert, obeys commands, Oriented to person, place, time, situation, Appropriate for age. Respiratory: No deficits noted. Airway is patent Respiratory effort is even, unlabored, Respiratory pattern is regular, symmetrical. Historical: - Allergies: 14:29 Codeine; cm10 14:29 Tylenol-Codeine; cm10 - PMHx: 14:29 Alzheimers; COPD; HARD OF HEARING; Hernia; Pancreatitis; cm10 - PSHx: 14:29 Adenoid excision; Appendectomy; breast implants; Cholecystectomy; double masectomy; cm10 stomach surgery to prevent vomiting; Tonsillectomy; Total abdominal hysterectomy; - Immunization history:: Adult Immunizations unknown. - Infectious Disease History:: Denies. - Social history:: Smoking status: Patient reports the use of cigarette tobacco products, denies chronic smoking, but will smoke occasionally. Vital Signs: 14:49 BP 142 / 100; Pulse 59; Resp 19; Temp 97.5; Pulse Ox 98% ; Weight 48.99 kg; Height 5 cm10 ft. 4 in. ; Pain 8/10; 14:49 Body Mass Index 18.54 (48.99 kg, 162.56 cm) cm10 14:49 Pain Scale: Adult cm10 ED Course: 14:22 Patient arrived in ED. cm10 14:38 Sean Earl PA is PHCP. cp 14:38 John Ramon MD is Attending Physician. cp 14:50 Triage completed. cm10 14:50 Arm band placed on right wrist. Patient placed in an exam room, on a stretcher. cm10 Administered Medications: No medications were administered Outcome: 16:20 Discharge ordered by . cp 16:34 Patient left the ED. hb Signatures: Sean Earl PA PA cp Richa Hathaway RN RN Kate Vargas RN RN cm10 Corrections: (The following items were deleted from the chart) 14:50 14:28 Chief complaint: EMS states: Called to patient's home due to patient having back cm10 pain. Pt has a history of chronic back pain. Pt reports that only Demerol and Phenergan help her pain. cm10
--- NOTE | 2024-10-04 16:21 | EDPHYS ---
Physician Documentation [facility] Name: Milan Weir Age: 84 yrs Sex: Female : 1940 Arrival Date: 10/04/2024 Time: 14:09 Bed [id number] Private MD: ED Physician John Ramon HPI: 10/04 15:10 This 84 yrs old Female presents to ER via EMS with complaints of Back Pain. cp 15:10 The patient presents with pain that is chronic, with no known mechanism of injury. The cp symptoms are located in the diffuse. Associated signs and symptoms: Pertinent positives: abdominal pain, nausea, vomiting, Pertinent negatives: fever, headache, incontinence, weakness, active vomiting. 15:10 The problem was sustained from a chronic condition. Modifying factors: the patient cp symptoms are aggravated by any movement. Historical: - Allergies: 14:29 Codeine; cm10 14:29 Tylenol-Codeine; cm10 - PMHx: 14:29 Alzheimers; COPD; HARD OF HEARING; Hernia; Pancreatitis; cm10 - PSHx: 14:29 Adenoid excision; Appendectomy; breast implants; Cholecystectomy; double masectomy; cm10 stomach surgery to prevent vomiting; Tonsillectomy; Total abdominal hysterectomy; - Immunization history:: Adult Immunizations unknown. - Infectious Disease History:: Denies. - Social history:: Smoking status: Patient reports the use of cigarette tobacco products, denies chronic smoking, but will smoke occasionally. ROS: 15:15 Constitutional: Negative for body aches, chills, fever, cp 15:15 Eyes: Negative for injury, pain, redness, and discharge, cp 15:15 Cardiovascular: Negative for chest pain, 15:15 Respiratory: Negative for cough, shortness of breath, wheezing, 15:15 Abdomen/GI: Positive for abdominal pain, nausea and vomiting, Negative for diarrhea, constipation, 15:15 Back: Positive for pain at rest, pain with movement, 15:15 : Negative for urinary symptoms, 15:15 Neuro: Negative for altered mental status, dizziness, headache, numbness, weakness, 15:15 All other systems are negative, Exam: 15:20 Constitutional: The patient appears in no acute distress, alert, awake, cp non-diaphoretic, non-toxic, well developed, well nourished, 15:20 Head/Face: Normocephalic, atraumatic. cp 15:20 Eyes: Periorbital structures: appear normal, Conjunctiva: normal, no exudate, no injection, Sclera: no appreciated abnormality, Lids and lashes: appear normal, bilaterally, 15:20 ENT: External ear(s): are unremarkable, Nose: is normal, Mouth: Lips: moist, Oral mucosa: moist, Posterior pharynx: Airway: no evidence of obstruction, patent, 15:20 Chest/axilla: Inspection: normal, 15:20 Cardiovascular: Rate: bradycardic, Rhythm: regular, 15:20 Respiratory: the patient does not display signs of respiratory distress, Respirations: normal, no use of accessory muscles, no retractions, labored breathing, is not present, Breath sounds: are clear throughout, no decreased breath sounds, no stridor, no wheezing, 15:20 Abdomen/GI: Inspection: abdomen appears normal, Palpation: soft, in all quadrants, moderate abdominal tenderness, in all quadrants, rebound tenderness, is not appreciated, 15:20 Back: pain, that is moderate, ROM is painful, with all movement, 15:20 Neuro: Orientation: to person, place \T\ time. Mentation: is normal, Motor: moves all fours, strength is normal, Vital Signs: 14:49 BP 142 / 100; Pulse 59; Resp 19; Temp 97.5; Pulse Ox 98% ; Weight 48.99 kg; Height 5 cm10 ft. 4 in. ; Pain 8/10; 14:49 Body Mass Index 18.54 (48.99 kg, 162.56 cm) cm10 14:49 Pain Scale: Adult cm10 MDM: 14:52 Medical Screening Exam initiated cp 16:20 Data reviewed: vital signs, nurses notes, I have discussed the patient's cp presentation/case with the attending Emergency Department Physician; and as a result, I will discharge patient. 16:20 Refusal of service: The patient/guardian displays adequate decision making capability cp and despite a detailed discussion of alternatives, benefits, risks, and consequences refuses: CT Scan, all lab tests. 10/04 15:07 Order name: IV Saline Lock cp 10/04 15:07 Order name: Labs collected and sent cp Administered Medications: No medications were administered Disposition Summary: 10/04/24 16:20 Discharge Ordered Notes: Location: Home cp Problem: chronic cp Symptoms: have improved cp Condition: Stable cp Diagnosis - Dorsalgia, unspecified cp - Nausea cp - Abdominal pain, unspecified cp Followup: cp - With: Private Physician - When: 1 - 2 days - Reason: Recheck today's complaints Discharge Instructions: - Discharge Summary Sheet cp - Abdominal Pain, Adult cp - Chronic Back Pain cp - Nausea, Adult cp Forms: - Medication Reconciliation Form cp - Antibiotic Education cp - Prescription Opioid Use cp - Patient Portal Instructions cp - Leadership Thank You Letter cp Addendum: 10/05/2024 18:45 Co-signature as Attending Physician, John Ramon MD I reviewed the patient's care r n provided by the Advanced Practice Provider and agree with the diagnosis and treatment plan. Signatures: Dispatcher [employer] [facility] John Ramon MD MD rn Sean Earl PA PA cp Martinez, Clarissa RN RN cm10 Corrections: (The following items were deleted from the chart) 10/04 15:07 15:07 Abdomen Pelvis W [id number] ordered. [facility] 10/05 15:30 10/04 15:10 Associated signs and symptoms: Pertinent positives: abdominal pain, nausea, cp Pertinent negatives: fever, headache, incontinence, vomiting, weakness, cp
[2024-10-04 16:44] VITALS: BP 142/100; TEMP 97.5; O2SAT 98
== END 2024-10-04 16:34 | disposition home or self-care (01) ==
LOC: ER 14:09
DX: M54.9 Dorsalgia, unspecified (principal); R11.0 Nausea; R10.9 Unspecified abdominal pain; F17.210 Nicotine dependence, cigarettes, uncomplicated; G30.9 Alzheimer's disease, unspecified; F02.80 Dementia in other diseases classified elsewhere, unspecified severity, without behavioral disturbance, psychotic disturbance, mood disturbance, and anxiety
CPT/HCPCS: 99282

== ENCOUNTER 2024-10-27 10:53 | Emergency (ER) | payer OTHER, BC ==
--- OUTSIDE RECORDS SUMMARY | 2024-10-27 10:57 | XMS REPORT | Continuity of Care Document ---
Author Name Unknown Address [address] [facility] [address] [place] [address] [facility] thconnect Address [address] [facility]. [address] [place] [address] Care Team Providers Care Information Technology Specialist Name Role Phone PCP, PATIENT DOES NOT HAVE A Primary Care Physic padmini Unavailable SIRISHA ROSARIO Attending Clinician Unavail Sirisha Cruz MD Attending Clinician [email or web address]_Kamarielenaa_S Attending Clinician UnavailNIECY Barber Attending Clinician Unavailab Niecy Collazo DO Attending Clinician [phone] RADIOLOGY Attending Clinician Unavailable Radiology Attending Clinician Unavailable MIKHAIL HURTADO Attending Clinician Unavailab sil GC_[email or web address]_Kamarielenaa_S Admitting Clinician UnavailNIECY Barber Admitting Clinician Unavailab MEKA Ricks Admitting Clinician Unavailable MIKHAIL HURTADO Admitting Clinician Unavailab le Payers Payer Name Policy Type Policy Number Effective Date Expirati on Date Source BCBS ESSENTIALS COMM [id number] 2017 00:00:00 [employer] MEDICARE OON Medicare [id number] 00:00:00 FOR LIFE Other [id number] 2021 00:00:00 MEDICARE PART A \T\ B [id number] 2004 00:00:00 BCBS TRADITIONAL [id number] 2017 00:00:00 Problems Condition Name Condition Details [...] problems No known active problems Disease [facility] Acute pancreatit is Acute pancreatit is Disease [...] DRUG INGREDI Active N/V 09-18 00:00: 00 [facility] Codeine Propensi ty to adverse reaction s Active Nausea and/or Vomiting 09-18 00:00: 00 [facility] Acetamin ophen Propensi ty to adverse reaction s Active GI intolerance 10-08 00:00: 00 Layton Villaseñor Codeine Allergy to substanc e Active Nausea And Vomiting, GI intolerance 10-08 00:00: 00 Layton Villaseñor NO KNOWN ALLERGIE S Drug Class Active [facility] Social History Social Habit Start Date Stop Date Quantity Comments Source Gender identity 2023-11-25 02:02:51 Identifies as female gender (finding) [facility] ASSERTION Possible [facility] History of tobacco use Passive smoker [facility] Sexual orientation [facility] Tobacco use and exposure 2024-09-17 00:00:00 2024-09-17 00:00:00 Smokeless tobacco non-user [facility] Alcoholic beverage intake 2024-09-17 00:00:00 2024-09-17 00:00:00 Lifetime non-drinker (finding) [facility] History of Social function 2024-09-17 00:00:00 2024-09-17 00:00:00 [facility] Exposure to SARS-CoV-2 (event) 2022-09-08 00:00:00 2022-09-18 09:01:00 Not sure [facility] Sex Assigned At 1940 00:00:00 1940 00:00:00 [facility] Smoking Status Start Date Stop Date Source Tobacco smoking consumption unknown [facility] Ex-smoker 2024-09-17 00:00:00 2024-09-17 00:00:00 [facility] Medications Ordered Medication Name Filled Medication Name Start Date Stop Date Current Medication? Ordering Clinician Indication Dosage Frequency Signature (SIG) Comments Components Source diphenhydrA MINE HCl, Sleep, (ZZZQUIL PO) diphenhydrA MINE HCl, Sleep, (ZZZQUIL PO) 09-17 09:49: 46 Yes Take by mouth. [facility] mirtazapine (Remeron) 15 MG tablet mirtazapine (Remeron) 15 MG tablet 09-17 00:00: 00 Yes 15mg Take 1 tablet by mouth at bedtime. [facility] memantine (Namenda) 5 MG tablet memantine (Namenda) 5 MG tablet 09-17 00:00: 00 03-16 23:59 :00 No 5mg Q.5D Take 1 tablet by mouth in the morning and 1 tablet in the evening. [facility] donepezil (Aricept) 5 MG tablet donepezil (Aricept) [...] DAILY., # 30 ea, 3 Refill(s), Pharmacy: [place] [address], 162.56, cm, 06/14/23 9:48:00 CDT, Height, 61.023, kg, 06/14/23 9:48:00 CDT, Weight Layton Villaseñor memantine (Namenda) 5 MG tablet memantine (Namenda) 5 MG tablet 2022-09 1- 00:00: 00 09-17 00:00 :00 No See Instructio ns, TAKE ONE (1) TABLET(S) BY MOUTH TWICE A DAY., # 60 ea, 3 Refill(s), Pharmacy: [place] [address], 162.56, cm, 06/14/23 9:48:00 CDT, Height, 61.023, kg, 06/14/23 9:48:00 CDT, Weight Layton Villaseñor omeprazole (PriLOSEC) [address] capsule omeprazole (PriLOSEC) [address] capsule 6-08 00:00: 00 Yes TAKE ONE (1) CAPSULE(S) BY MOUTH DAILY NEEDED. Layton Villaseñor No known medications -16 09:05: 08 No No known medication s [facility] gadoteridol (PROHANCE-1 5 mL) injection 0.2 mL/kg 2019-09 21:45: 00 08-12 22:15 :00 No .2mL/kg 0.2 mL/kg, Intravenou s, ONCE, 1 dose, Leni 08/12/20 at 1545, Routine [facility] Vital Signs Vital Name Observation Time Observation Value Comments S antoninoce Heart rate 2024-09-17 10:05:00 83 /min [facility] Body temperature 2024-09-17 10:05:00 36.28 Keesha [facility] Respiratory rate 2024-09-17 10:05:00 16 /min [facility] Body height 2024-09-17 10:05:00 162.6 cm [facility] Body weight 2024-09-17 10:05:00 51.256 kg [facility] BMI 2024-09-17 10:05:00 19.40 kg/m2 [facility] Epic Oxygen saturation in Arterial blood by Pulse oximetry 2024-09-17 10:05:00 97 /min [facility] Systolic blood pressure 2024-09-17 10:05:00 142 mm[Hg] [facility] Diastolic blood pressure 2024-09-17 10:05:00 82 mm[Hg] [facility] Heart rate 2024-09-17 10:05:00 83 /min [facility] Body temperature 2024-09-17 10:05:00 36.28 [facility] Respiratory rate 2024-09-17 10:05:00 16 /min [facility] Body height 2024-09-17 10:05:00 162.6 cm [facility] 2024-09-17 10:05:00 51.256 [facility] BMI 2024-09-17 10:05:00 19.40 kg/m2 [facility] Oxygen saturation in Arterial blood by Pulse oximetry 2024-09-17 10:05:00 97 /min [facility] Systolic blood pressure 2024-09-17 10:05:00 142 mm[Hg] [facility] Diastolic blood pressure 2024-09-17 10:05:00 82 mm[Hg] [facility] Heart rate 2022-09-18 16:44:00 62 /min [facility] Respiratory rate 2022-09-18 16:44:00 20 /min [facility] Oxygen saturation in Arterial blood by Pulse oximetry 2022-09-18 16:44:00 99 /min [facility] Systolic blood pressure 2022-09-18 16:00:18 153 mm[Hg] [facility] Diastolic blood pressure 2022-09-18 16:00:18 86 mm[Hg] [facility] Body temperature 2022-09-18 15:03:00 36.89 Keesha [facility] Body height 2022-09-18 15:03:[address] [facility] Body weight 2022-09-18 15:03:[address] [facility] BMI 2022-09-18 15:03:00 20.90 kg/m2 [facility] Procedures Procedure Date / Time Performed Performing Clinicia n Source CT TRAUMA HEAD WO CONTRAST 2022-09-18 15:55:32 Niecy John [facility] CT TRAUMA CERVICAL SPINE WO CONTRAST 2022-09-18 15:55:32 Niecy John [facility] XR SHOULDER <2 VW LEFT 2022-09-18 15:40:40 Ashley John [facility] NOTICE OF PRIVACY PRACTICES 2022-09-18 14:59:10 Doctor Unassigned, Leon [facility] CONSENT/REFUSAL FOR DIAGNOSIS AND TREATMENT 2022-09-18 14:58:45 Doctor Unassigned, Leon [facility] MR ABDOMEN W WO CONTRAST MRCP 2020-08-12 22:16:07 Requisition, Paper [facility] NOTICE OF PRIVACY PRACTICES 2020-08-12 21:10:37 Doctor Unassigned, Leon [facility] CONSENT/REFUSAL FOR DIAGNOSIS AND TREATMENT 2020-08-12 21:10:07 Doctor Unassigned, Leon [facility] ASSIGNMENT OF BENEFITS 2020-08-12 21:09:46 Docto r Unassigned, Leon [facility] Encounters Start Date/Time End Date/Time Encounter Type Admission Type Attending [facility] Facility Care Department Encounter ID Source 2024-10-08 09:08:00 Outpatient [facility] [id number] [facility] 2024-10-24 17:18:41 2024-10-24 17:18:41 Outpatient [facility] [id number] Todd Cervantes 2024-10-08 14:25:58 2024-10-08 14:25:58 Outpatient [facility] [id number] Todd Cervantes 2024-09-17 09:39:26 2024-09-17 10:27:49 Outpatient Elective SIRISHA ROSARIO [facility] [id number] [facility] 2024-09-17 09:30:00 2024-09-17 10:27:49 Office Visit Sirisha Rosario [id number] Darlinval roldan [facility] 2024-04-17 00:00:00 2024-04-18 10:18:36 Refill Sirisha Rosario [id number] Layton roldan [facility] 2023-07-03 00:00:00 2023-07-03 00:00:00 Outpatient GC_GCBZW_Ka diyala_S PRIV PRIV [id number] [facility] 2023-07-02 00:00:00 2023-07-02 00:00:00 Outpatient GC_GCBZW_Ka diyala_S PRIV PRIV [id number] [facility] 2022-09-18 09:05:00 2022-09-18 10:46:00 Emergency NIECY [facility] [id number] [facility] 2022-09-18 09:05:00 2022-09-18 10:46:00 Emergency Niecy John [facility] [id number] [facility] 2020-08-12 15:11:31 2020-08-12 23:59:00 Outpatient R RADIOLOGY [facility] [id number] [facility] 2020-08-12 15:00:00 2020-08-12 23:59:00 Hospital Encounter Radiology [facility] [id number] 2020-08-12 15:00:00 2020-08-12 23:59:00 Hospital Encounter Radiology [facility] [id number] [facility] Results Test Description Test Time Test [...] without and with contrast including MRCP studies. Demb, Radiant Results Inft User - 08/12/2020 4:29 [...] without and with contrast including MRCP studies. [facility], [id number] 09:33:00* Test Item Value Reference Range Interpretation [...] management of chronic kidney failure. [facility] Notes Date/Time Note Provider Source 2024-09-17 10:39:27 [facility]2025-01-15 10:39:27* Sirisha Rosario MD - 09/17/2024 9:30 AM TRANSPORTATION PROJECT MANAGER History of Present Illness Memory Loss Insomnia Still some difficulties sleeping, irritated easily. Not taking the medication. Not driving, restart medications. Several trips to the ER, ran out of pain medication. Allergies as of 09/17/2024 - Reviewed 09/17/2024 Allergen Reaction Noted Acetaminophen GI intolerance 10/08/2018 Codeine Nausea And Vomiting and GI intolerance 10/08/2018 has a current medication list which includes the following prescription(s): diphenhydramine hcl (sleep), meperidine, omeprazole, donepezil, memantine, and mirtazapine. Vitals:09/17/24 1005 BP: 142/82 Pulse: 83 Resp: 16 Temp: 36.3 ?C (97.3 ?F) SpO2: 97% Neurological Exam Mental Status Awake and alert. Speech is normal. Not year, month, day. Effort questionable 6/6 pictures. Cranial NervesCN II: Visual acuity is normal. CN III, IV, : Extraocular movements intact bilaterally. Pupils equal round and reactive to light bilaterally. CN VII: Full and symmetric facial movement. CN XII: Tongue midline without atrophy or fasciculations. MotorStrength is 5/5 throughout all four extremities. SensoryLight touch is normal in upper and lower extremities. Temperature is normal in upper and lower extremities. Vibration is normal in upper and lower extremities. ReflexesDeep tendon reflexes: Symmetric. GaitCasual gait is normal including stance, stride, and arm swing. Results for orders placed or performed in visit on 02/08/23 Complete Blood Count w/Diff and Platelet Collection Time: 02/16/23 12:05 PM Result Value Ref Range Monocytes 7.3 % Plt Count 248 140 - 400 K/ul Eos % 4.8 % MPV 10.1 7.5 - 12.5 fL Segs # 4,961 1,500 - 7,800 Cells/uL WBC 8.2 3.8 - 10.8 K/ul Basos % 0.6 % Lymphocytes # 2,198 850 - 3,900 Cells/uL RBC 4.69 3.80 - 5.10 M/CMM Monocytes # 599 200 - 950 Cells/uL Hgb 14.2 11.7 - 15.5 g/dL Hct 41.3 35.0 - 45.0 % Eosinophils # 394 15 - 500 Cells/uL Basophils # 49 0 - 200 Cells/uL MCV 88.1 80.0 - 100.0 fL MCH 30.3 27.0 - 33.0 pg Segs % 60.5 % MCHC 34.4 32.0 - 36.0 g/dL Lymphs % 26.8 % RDW 13.9 11.0 - 15.0 % Comprehensive Metabolic Panel Collection Time: 02/16/23 12:05 PM Result Value Ref Range eGFR 64 > OR = 60 mL/min/1.73m2 B/C Ratio NOT APPLICABLE 6 - 22 (CALC) Bilirubin Total 0.4 0.2 - 1.2 mg/dL Alkaline Phosphatase 82 37 - 153 unit/L Sodium Lvl 138 135 - 146 mMol/L Potassium Lvl 4.3 3.5 - 5.3 mMol/L AST 17 10 - 35 unit/L Chloride Lvl 105 98 - 110 mMol/L ALT 10 6 - 29 unit/L CO2 Lvl 22 20 - 32 mMol/L Calcium Lvl 9.3 8.6 - 10.4 mg/dL Glucose Lvl 91 65 - 99 mg/dL Total Protein 6.3 6.1 - 8.1 g/dL BUN 7 7 - 25 mg/dL Albumin Lvl 3.9 3.6 - 5.1 g/dL Creatinine Lvl 0.89 0.60 - 0.95 mg/dL Globulin 2.4 1.9 - 3.7 g/dL Albumin/Globulin Ratio 1.6 1.0 - 2.5 (CALC) No MRI head results found for the past 12 months Assessment & PlanDiagnoses and all orders for this visit: MCI (mild cognitive impairment) with memory loss Other orders - memantine (Namenda) 5 MG tablet; Take 1 tablet by mouth in the morning and 1 tablet in the evening. - donepezil (Aricept) 5 MG tablet; Take 1 tablet by mouth at bedtime. - mirtazapine (Remeron) 15 MG tablet; Take 1 tablet by mouth at bedtime. Restart medication, re evaluate in 3-4 months. [facility]2025-01-15 10:39:27Upcoming Encounters Health Maintenance Due Date Last Done Comments Bone Density Scan 1940 Medicare Annual Wellness (AWV) 1940 Annual Physical 1943 Pneumococcal Vaccine: 65+ Ye ars (1 of 2 - PCV) 1945 DTaP/Tdap/Td Vaccines (1 - Tdap) 1958 Zoster Vaccines (1 of 2) 1989 Respiratory Syncytial Virus (RSV) or >=60 (1 - 1-dose 75+ series) 2014 Influenza Vaccine (#1) 2024 HIB Vaccines Aged Out No longer eligi ble based on patient's age to complete this topic HPV Vaccines Aged Out No longer eligi ble based on patient's age to complete this topic Hepatitis A Vaccines Aged Out No long er eligible based on patient's age to complete this topic Hepatitis B Vaccines Aged Out No long er eligible based on patient's age to complete this topic IPV Vaccines Aged Out No longer eligi ble based on patient's age to complete this topic Meningococcal Vaccine Aged Out No leonel babar eligible based on patient's age to complete this topic Rotavirus Vaccines Aged Out No longer eligible based on patient's age to complete this topic [id number] 10:39:27 Diagnosis MCI (mild cognitive impairment) with memory loss - Primary Mild cognitive impairment, so stated [facility] [id number] 10:39:27 [facility] [id number] 10:39:27* [facility] [id number] 10:39:27 [facility] [id number] 10:39:27* Sirisha Rosario MD - 09/17/2024 9:30 AM TRANSPORTATION PROJECT MANAGER History of Present Illness Memory Loss Insomnia Still some difficulties sleeping, irritated easily. Not taking the medication. Not driving, restart medications. Several trips to the ER, ran out of pain medication. Allergies as of 09/17/2024 - Reviewed 09/17/2024 Allergen Reaction Noted Acetaminophen GI intolerance 10/08/2018 Codeine Nausea And Vomiting and GI intolerance 10/08/2018 has a current medication list which includes the following prescription(s): diphenhydramine hcl (sleep), meperidine, omeprazole, donepezil, memantine, and mirtazapine. Vitals:09/17/24 1005 BP: 142/82 Pulse: 83 Resp: 16 Temp: 36.3 ?C (97.3 ?F) SpO2: 97% Neurological Exam Mental Status Awake and alert. Speech is normal. Not year, month, day. Effort questionable 6/6 pictures. Cranial NervesCN II: Visual acuity is normal. CN III, IV, : Extraocular movements intact bilaterally. Pupils equal round and reactive to light bilaterally. CN VII: Full and symmetric facial movement. CN XII: Tongue midline without atrophy or fasciculations. MotorStrength is 5/5 throughout all four extremities. SensoryLight touch is normal in upper and lower extremities. Temperature is normal in upper and lower extremities. Vibration is normal in upper and lower extremities. ReflexesDeep tendon reflexes: Symmetric. GaitCasual gait is normal including stance, stride, and arm swing. Results for orders placed or performed in visit on 02/08/23 Complete Blood Count w/Diff and Platelet Collection Time: 02/16/23 12:05 PM Result Value Ref Range Monocytes 7.3 % Plt Count 248 140 - 400 K/ul Eos % 4.8 % MPV 10.1 7.5 - 12.5 fL Segs # 4,961 1,500 - 7,800 Cells/uL WBC 8.2 3.8 - 10.8 K/ul Basos % 0.6 % Lymphocytes # 2,198 850 - 3,900 Cells/uL RBC 4.69 3.80 - 5.10 M/CMM Monocytes # 599 200 - 950 Cells/uL Hgb 14.2 11.7 - 15.5 g/dL Hct 41.3 35.0 - 45.0 % Eosinophils # 394 15 - 500 Cells/uL Basophils # 49 0 - 200 Cells/uL MCV 88.1 80.0 - 100.0 fL MCH 30.3 27.0 - 33.0 pg Segs % 60.5 % MCHC 34.4 32.0 - 36.0 g/dL Lymphs % 26.8 % RDW 13.9 11.0 - 15.0 % Comprehensive Metabolic Panel Collection Time: 02/16/23 12:05 PM Result Value Ref Range eGFR 64 > OR = 60 mL/min/1.73m2 B/C Ratio NOT APPLICABLE 6 - 22 (CALC) Bilirubin Total 0.4 0.2 - 1.2 mg/dL Alkaline Phosphatase 82 37 - 153 unit/L Sodium Lvl 138 135 - 146 mMol/L Potassium Lvl 4.3 3.5 - 5.3 mMol/L AST 17 10 - 35 unit/L Chloride Lvl 105 98 - 110 mMol/L ALT 10 6 - 29 unit/L CO2 Lvl 22 20 - 32 mMol/L Calcium Lvl 9.3 8.6 - 10.4 mg/dL Glucose Lvl 91 65 - 99 mg/dL Total Protein 6.3 6.1 - 8.1 g/dL BUN 7 7 - 25 mg/dL Albumin Lvl 3.9 3.6 - 5.1 g/dL Creatinine Lvl 0.89 0.60 - 0.95 mg/dL Globulin 2.4 1.9 - 3.7 g/dL Albumin/Globulin Ratio 1.6 1.0 - 2.5 (CALC) No MRI head results found for the past 12 months Assessment & PlanDiagnoses and all orders for this visit: MCI (mild cognitive impairment) with memory loss Other orders - memantine (Namenda) 5 MG tablet; Take 1 tablet by mouth in the morning and 1 tablet in the evening. - donepezil (Aricept) 5 MG tablet; Take 1 tablet by mouth at bedtime. - mirtazapine (Remeron) 15 MG tablet; Take 1 tablet by mouth at bedtime. Restart medication, re evaluate in 3-4 months. SPORTATION PROJECT MANAGER [facility] [id number] 10:39:27Upcoming Encounters Health Maintenance Due Date Last Done Comments Bone Density Scan 1940 Medicare Annual Wellness (AWV) 1940 Annual Physical 1943 Pneumococcal Vaccine: 65+ Ye ars (1 of 2 - PCV) 1945 DTaP/Tdap/Td Vaccines (1 - Tdap) 1958 Zoster Vaccines (1 of 2) 1989 Respiratory Syncytial Virus (RSV) or >=60 (1 - 1-dose 75+ series) 2014 Influenza Vaccine (#1) 2024 HIB Vaccines Aged Out No longer eligi ble based on patient's age to complete this topic HPV Vaccines Aged Out No longer eligi ble based on patient's age to complete this topic Hepatitis A Vaccines Aged Out No long er eligible based on patient's age to complete this topic Hepatitis B Vaccines Aged Out No long er eligible based on patient's age to complete this topic IPV Vaccines Aged Out No longer eligi ble based on patient's age to complete this topic Meningococcal Vaccine Aged Out No leonel babar eligible based on patient's age to complete this topic Rotavirus Vaccines Aged Out No longer eligible based on patient's age to complete this topic [facility] [id number] 10:39:27 Diagnosis MCI (mild cognitive impairment) with memory loss - Primary Mild cognitive impairment, so stated [facility] [id number] 10:39:27 [facility] [id number] 10:18:46 [facility] [id number] 10:18:46* Adeel [id number] 10:18:31 Medication filled, please call patient and have them schedule a follow up. Adeel Garcia
[2024-10-27 11:43] LABS: Influenza A Ag Negative; Influenza B Ag Negative; SARS-CoV-2 Antigen Rapid Res Negative (Negative)
--- NOTE | 2024-10-27 12:14 | RAD REPORT ---
EXAMINATION: TWO VIEW CHEST XR CLINICAL INDICATION: COUGH TECHNIQUE: 2 views of the chest was performed. COMPARISON: 09/20/2024 FINDINGS: The lungs are hyperexpanded suggesting COPD. The heart is upper limit of normal in size. No displaced fractures evident. Left-sided port catheter is tip in SVC. IMPRESSION: COPD is suspected without acute finding identified.
--- NOTE | 2024-10-27 12:35 | ER ---
Nurse's Notes [facility] Name: Milan Weir Age: 84 yrs Sex: Female : 1940 Arrival Date: 10/27/2024 Time: 10:53 Bed 19 Private MD: Diagnosis: COPD/ Chronic obstructive pulmonary disease, unspecified;Essential (primary) hypertension;Acute upper respiratory infection, unspecified Presentation: 10/27 11:19 Chief complaint: Patient states: cough and congestion since yesterday. Coronavirus aa5 screen: congestion, cough unrelated to allergies. Ebola Screen: Patient denies travel to an Ebola-affected area in the 21 days before illness onset. Initial Sepsis Screen: Does the patient meet any 2 criteria? No. Patient's initial sepsis screen is negative. Does the patient have a suspected source of infection? No. Patient's initial sepsis screen is negative. Risk Assessment: Do you want to hurt yourself or someone else? Patient reports no desire to harm self or others. Onset of symptoms was October 2024. 11:19 Method Of Arrival: Wheelchair aa5 11:19 Acuity: JARRETT 4 aa5 Historical: - Allergies: 11:19 Codeine; aa5 11:19 Tylenol-Codeine; aa5 - PMHx: 11:19 Alzheimers; COPD; HARD OF HEARING; Hernia; Pancreatitis; aa5 - PSHx: 11:19 Adenoid excision; Appendectomy; breast implants; Cholecystectomy; double masectomy; aa5 stomach surgery to prevent vomiting; Tonsillectomy; Total abdominal hysterectomy; - Immunization history:: Adult Immunizations unknown. - Infectious Disease History:: Denies. - Social history:: Smoking status: Patient denies any tobacco usage or history of. Screenin:45 [facility] ED Fall Risk Assessment (Adult) History of falling in the last 3 months, me1 including since admission No falls in past 3 months (0 pts) Confusion or Disorientation No (0 pts) Intoxicated or Sedated No (0 pts) Impaired Gait No (0 pts) Mobility Assist Device Used No (0 pt) Altered Elimination No (0 pt) Score/Fall Risk Level 0 - 2 = Low Risk Maintained a safe environment, Provided non-skid footwear, Hourly rounding (assess needs \T\ fall precautionary measures) done. Abuse screen: Denies threats or abuse. Nutritional screening: No deficits noted. Tuberculosis screening: No symptoms or risk factors identified. Assessment: 12:45 General: Appears in no apparent distress. Behavior is calm, cooperative, appropriate me1 for age, Reports cough and congestion since yesterday. Pain: Denies pain. Neuro: Level of Consciousness is awake, alert, obeys commands, Oriented to person, place, time, situation, Appropriate for age. Cardiovascular: Patient's skin is warm and dry. Respiratory: Reports cough that is persistent Airway is patent Respiratory effort is even, unlabored, Respiratory pattern is regular, symmetrical. GI: No signs and/or symptoms were reported involving the gastrointestinal system. : No signs and/or symptoms were reported regarding the genitourinary system. EENT: Reports nasal congestion. Derm: Skin is intact, is healthy with good turgor, Skin is pink, warm \T\ dry. Musculoskeletal: No signs and/or symptoms reported regarding the musculoskeletal system. Vital Signs: 11:19 BP 153 / 101; Pulse 75; Resp 18 S; Temp 97.2(TE); Pulse Ox 100% on R/A; aa5 12:57 BP 146 / 97; Pulse 72; Resp 17; Temp 98.1; Pulse Ox 100% ; me1 ED Course: 10:58 Patient arrived in ED. al6 11:03 Sae Hamilton DO is Attending Physician. ms3 11:19 Arm band placed on. aa5 11:20 Triage completed. aa5 11:21 Chest Pa And Lat (2 Views) XRAY Sent. bc6 11:21 COVID swab sent to lab. Flu and/or RSV swab sent to lab. bc6 12:07 Chest Pa And Lat (2 Views) XRAY In Process Unspecified. EDMS 12:21 Sheridan Keenan, SANDY is Primary Nurse. me1 12:34 Rakesh Ashby DO is Referral Physician. ms3 12:45 Patient has correct armband on for positive identification. Bed in low position. Call me1 light in reach. Side rails up X 1. Provided Education on: POC. Verbalized understanding.. Client placed on continuous cardiac and pulse oximetry monitoring. NIBP monitoring applied. Pulse ox on. NIBP on. 12:45 No provider procedures requiring assistance completed. Patient did not have IV access me1 during this emergency room visit. Administered Medications: No medications were administered Medication: 12:45 VIS not applicable for this client. me1 Outcome: 12:34 Discharge ordered by MD. ms3 12:57 Discharged to home ambulatory, me1 12:57 Condition: stable 12:57 Discharge instructions given to patient, Instructed on discharge instructions, follow up and referral plans. medication usage, Demonstrated understanding of instructions, follow-up care, medications, Prescriptions given X 1, :57 Patient left the ED. me1 Signatures: Dispatcher [employer] EDMS Elena Corcoran, RN RN aa5 Sae Hamilton, DO ms3 Keesha Nick bc6 Sheridan Keenan RN RN me1 Debbie Vasquez al6
--- NOTE | 2024-10-27 12:35 | EDPHYS ---
Physician Documentation [facility] Name: Milan Weir Age: 84 yrs Sex: Female : 1940 Arrival Date: 10/27/2024 Time: 10:53 Bed 19 Private MD: ED Physician Sae Hamilton HPI: 10/27 11:12 This 84 yrs old Female presents to ER via Unassigned with complaints of Flu Symptoms. ms3 11:12 84-year-old female with no past medical history presents to the emergency department ms3 for cough, congestion that began yesterday evening. Patient denies fevers, chills. Patient states her discomfort is an 8/10.. Historical: - Allergies: 11:19 Codeine; aa5 11:19 Tylenol-Codeine; aa5 - PMHx: 11:19 Alzheimers; COPD; HARD OF HEARING; Hernia; Pancreatitis; aa5 - PSHx: 11:19 Adenoid excision; Appendectomy; breast implants; Cholecystectomy; double masectomy; aa5 stomach surgery to prevent vomiting; Tonsillectomy; Total abdominal hysterectomy; - Immunization history:: Adult Immunizations unknown. - Infectious Disease History:: Denies. - Social history:: Smoking status: Patient denies any tobacco usage or history of. ROS: 11:12 Constitutional: Negative for fever, and chills. Cardiovascular: Negative for chest ms3 pain, and palpitations. 11:12 Skin: Negative for injury, rash, and discoloration, 11:12 ENT: Positive for nasal discharge, 11:12 Respiratory: Positive for cough, Exam: 11:12 Constitutional: This is a well developed, well nourished patient who is awake, alert, ms3 and in no acute distress. Cardiovascular: Regular rate and rhythm with a normal S1 and S2. No gallops, murmurs, or rubs. Normal PMI, no JVD. No pulse deficits. 11:12 Abdomen/GI: Soft, non-tender, with normal bowel sounds. No distension or tympany. No guarding or rebound. No evidence of tenderness throughout. Skin: Warm, dry with normal turgor. Normal color with no rashes, no lesions, and no evidence of cellulitis. 11:12 Respiratory: the patient does not display signs of respiratory distress, Respirations: normal, Breath sounds: rales, that are mild, are heard in the right posterior lower lobe, Vital Signs: 11:19 BP 153 / 101; Pulse 75; Resp 18 S; Temp 97.2(TE); Pulse Ox 100% on R/A; aa5 12:57 BP 146 / 97; Pulse 72; Resp 17; Temp 98.1; Pulse Ox 100% ; me1 MDM: 11:11 Medical Screening Exam initiated ms3 11:12 Differential diagnosis: flu, URI, PNA. ms3 12:34 Antibiotic administration: The patient is discharged and will get outpatient ms3 antibiotics, Zithromax. Data reviewed: vital signs, nurses notes, lab test result(s), radiologic studies, and as a result, I will discharge patient. I considered the following discharge prescriptions or medication management in the emergency department See rx. Counseling: I had a detailed discussion with the patient and/or guardian regarding the historical points, exam findings, and any diagnostic results supporting the discharge/admit diagnosis, lab results, radiology results, the need for outpatient follow up, to return to the emergency department if symptoms worsen or persist or if there are any questions or concerns that arise at home. Special discussion: I discussed with the patient/guardian in detail that at this point there is no indication for admission to the hospital. It is understood, however, that if the symptoms persist or worsen the patient needs to return immediately for re-evaluation. ED course: Discussed negative flu and COVID results with patient. Chest x-ray showing COPD with rales in right lower lung field. Will give patient prescription for azithromycin. Patient to follow-up with primary care physician in 2 to 3 days. Patient understands and agrees with plan. All questions were answered. Return precautions discussed include worsening symptoms, or any other concerns.. 10/27 11:11 Order name: COVID-19 Ag + Flu A+B Ag; Complete Time: 11:44 ms3 10/27 11:11 Order name: Chest Pa And Lat (2 Views) XRAY; Complete Time: 12:20 ms3 Administered Medications: No medications were administered Disposition Summary: 10/27/24 12:34 Discharge Ordered Notes: Location: Home ms3 Condition: Stable ms3 Diagnosis - COPD/ Chronic obstructive pulmonary disease, unspecified ms3 - Essential (primary) hypertension ms3 - Acute upper respiratory infection, unspecified ms3 Followup: ms3 - With: Ashby, Rakesh, DO - When: 2 - 3 days - Reason: Re-evaluation by your physician Discharge Instructions: - Discharge Summary Sheet ms3 - Chronic Obstructive Pulmonary Disease ms3 - Hypertension, Adult ms3 - Upper Respiratory Infection, Adult ms3 - DASH Eating Plan ms3 Forms: - Medication Reconciliation Form ms3 - Antibiotic Education ms3 - Prescription Opioid Use ms3 - Patient Portal Instructions ms3 - Leadership Thank You Letter ms3 Prescriptions: - azithromycin 250 mg Oral tablet - take 1 dose pack ORAL route as directed on dose pack For 250 mg dose pack: take ms3 500 mg today (day 1), then 250 mg for 4 days (days 2-5); 6 tablet; Refills: 0, Product Selection Permitted Signatures: Dispatcher [employer] Elena Taylor RN RN aa5 Sae Hamilton DO DO ms3
[2024-10-27 13:01] VITALS: O2SAT 100
[2024-10-27 13:03] VITALS: BP 146/97; TEMP 98.1
== END 2024-10-27 12:57 | disposition home or self-care (01) ==
LOC: ER 10:53
DX: J06.9 Acute upper respiratory infection, unspecified (principal); J44.9 Chronic obstructive pulmonary disease, unspecified; I10 Essential (primary) hypertension; Z11.52 Encounter for screening for COVID-19; G30.9 Alzheimer's disease, unspecified; F02.80 Dementia in other diseases classified elsewhere, unspecified severity, without behavioral disturbance, psychotic disturbance, mood disturbance, and anxiety
CPT/HCPCS: 36415; 71046; 87428; 99284

== ENCOUNTER 2024-12-21 15:53 | Inpatient (IN) | payer OTHER, BC ==
--- OUTSIDE RECORDS SUMMARY | 2024-12-21 15:58 | XMS REPORT | Continuity of Care Document ---
Author Name Unknown Address [address] [facility] [address] [place] [address] [facility] [place] Address [address] [facility]. [address] [place] [address] Care Team Providers Care Adventure Therapist Name Role Phone PCP, PATIENT DOES NOT HAVE A Primary Care Physic padmini Unavailable Sirisha Rosario MD Attending Clinician SIRISHA ROSARIO Attending Clinician Unavail able GC_GCBZW_Kadiyala_S Attending Clinician UnavailNIECY Barber Attending Clinician Unavailab Niecy Collazo DO Attending Clinician [phone] RADIOLOGY Attending Clinician Unavailable Radiology Attending Clinician Unavailable MIKHAIL HURTADO Attending Clinician Unavailab le GC_GCBZW_Kadiyala_S Admitting Clinician UnavailNIECY Barber Admitting Clinician Unavailab MEKA Ricks Admitting Clinician Unavailable MIKHAIL HURTADO Admitting Clinician Unavailab le Payers Payer Name Policy Type Policy Number Effective Date Expirati on Date Source [employer] MEDICARE OON Medicare [id number] 00:00:00 FOR LIFE Other [id number] 2021 00:00:00 BCBS ESSENTIALS COMM [id number] 2017 00:00:00 MEDICARE PART A \T\ B [id number] 2004 00:00:00 BCBS TRADITIONAL [id number] 2017 00:00:00 Problems Condition Name Condition Details Condition Category Status Onset Date Resolution Date Last Treatment Date Treating Clinician Comments Source Acute diverticul itis of intestine Acute diverticul itis of intestine Disease Active 12-16 00:00: 00 Layton Villaseñor Chronic kidney disease Chronic kidney disease Disease [...] active problems Disease [facility] Acute pancreatit is Acute pancreatit is Disease Resolve d 09-17 00:00: 00 2024-09-17 00:00:00 2024-09-17 10:06:57 Layton Villaseñor Chronic cough Chronic cough Disease Resolve d 09-17 00:00: 00 2024-09-17 00:00:00 2024-09-17 10:06:57 Layton Villaseñor Elevated LFTs Elevated LFTs Disease Resolve d 09-17 00:00: 00 2024-09-17 00:00:00 2024-09-17 10:06:57 Layton Villaseñor Lactic acidosis Lactic acidosis Disease Resolve d [...] DRUG INGREDI Active N/V 09-18 00:00: 00 [facility] Codeine Propensi ty to adverse reaction s Active Nausea and/or Vomiting 09-18 00:00: 00 [facility] Acetamin ophen Propensi ty to adverse reaction s Active GI intolerance 10-08 00:00: 00 Layton Villaseñor Codeine Allergy to substanc e Active Nausea And Vomiting, GI intolerance 10-08 00:00: 00 Layton Villaseñor NO KNOWN ALLERGIE S Drug Class Active [facility] Social History Social Habit Start Date Stop Date Quantity Comments Source Gender identity 2023-11-25 02:02:51 Identifies as female gender (finding) [facility] ASSERTION Possible [facility] History of tobacco use Passive smoker [facility] Sexual orientation [facility] Alcoholic beverage intake 2024-12-16 00:00:00 2024-12-16 00:00:00 Lifetime non-drinker (finding) [facility] History of Social function 2024-12-16 00:00:00 2024-12-16 00:00:00 [facility] Tobacco use and exposure 2024-09-17 00:00:00 2024-09-17 00:00:00 Smokeless tobacco non-user [facility] Exposure to SARS-CoV-2 (event) 2022-09-08 00:00:00 2022-09-18 09:01:00 Not sure [facility] Sex Assigned At 1940 00:00:00 1940 00:00:00 [facility] Smoking Status Start Date Stop Date Source Tobacco smoking consumption unknown [facility] Ex-smoker 2024-09-17 00:00:00 2024-09-17 00:00:00 [facility] Medications Ordered Medication Name Filled Medication Name Start Date Stop Date Current Medication? Ordering Clinician Indication Dosage Frequency Signature (SIG) Comments Components Source mirtazapine (Remeron) 15 MG tablet mirtazapine (Remeron) 15 MG tablet 12-16 00:00: 00 Yes 15mg Take 1 tablet by [facility] bed[facility] donepezil (Aricept) 5 MG tablet donepezil (Aricept) 5 MG tablet 12-16 00:00: 00 06-14 23:59 :00 No 5mg Take 1 tablet by mouth at bedtime. [facility] Jose [facility] memantine (Namenda) 5 MG tablet memantine (Namenda) 5 MG tablet 12-16 00:00: 00 06-14 23:59 :00 No 5mg Q.5D Take 1 tablet by mouth in the morning and 1 tablet in the evening. Memoria l [facility] diphenhydrA MINE HCl, Sleep, (ZZZQUIL PO) diphenhydrA MINE HCl, Sleep, (ZZZQUIL PO) 1 09:49: 46 Yes Take by mouth. Memval [facility] memantine (Namenda) 5 MG tablet memantine (Namenda) 5 MG tablet 1-15 00:00: 00 12-16 00:00 :00 No 5mg Q.5D Take 1 tablet by mouth in the morning and 1 tablet in the evening. Memoria jamar [facility] donepezil (Aricept) 5 MG tablet donepezil (Aricept) 5 MG tablet 09-17 00:00: 00 12-16 00:00 :00 No 5mg Take 1 tablet by mouth at bedtime. Memval [facility] mirtazapine (Remeron) 15 MG tablet mirtazapine (Remeron) 15 MG tablet 09-17 00:00: 00 12-16 00:00 :00 No 15mg Take 1 tablet by mouth at bedtime. Memval Garcia [facility] meperidine (Demerol) 50 MG tablet meperidine (Demerol) 50 MG tablet 2023-09 2-20 00:00: 00 Yes 50mg 50 mg. TAKE ONE AND ONE-HALF (1 AND 1/2) TABLET(S) BY MOUTH ONCE A DAY NEEDED. Memval Garcia [facility] mirtazapine (Remeron) 15 MG tablet mirtazapine (Remeron) 15 MG tablet 8-16 00:00: 00 09-17 00:00 :00 No 15mg TAKE ONE (1) TABLET(S) BY MOUTH DAILY AT BEDTIME. Memval Garcia [facility] donepezil (Aricept) 5 MG tablet donepezil (Aricept) 5 MG tablet 2022-09 1-06 00:00: 00 09-17 00:00 :00 No See Instructio ns, TAKE ONE (1) TABLET(S) BY MOUTH DAILY., # 30 ea, 3 Refill(s), Pharmacy: [place] [id number], 162.56, cm, 06/14/23 9:48:00 CDT, Height, 61.023, kg, 06/14/23 9:48:00 CDT, Weight Layton Villaseñor memantine (Namenda) 5 MG tablet memantine (Namenda) 5 MG tablet 2022-09 106 00:00: 00 09-17 00:00 :00 No See Instructio ns, TAKE ONE (1) TABLET(S) BY MOUTH TWICE A DAY., # 60 ea, 3 Refill(s), Pharmacy: [place] [address], 162.56, cm, 06/14/23 9:48:00 CDT, Height, 61.023, kg, 06/14/23 9:48:00 CDT, Weight Layton Villaseñor omeprazole (PriLOSEC) [address] capsule omeprazole (PriLOSEC) [address] capsule 02-08 00:00: 00 Yes TAKE ONE (1) CAPSULE(S) BY MOUTH DAILY NEEDED. Layton Garcia [facility] No known medications 09-18 09:05: 08 No No known medication s [facility] gadoteridol (PROHANCE-1 5 mL) injection 0.2 mL/kg 2019-09 21:45: 00 08-12 22:15 :00 No .2mL/kg 0.2 mL/kg, Intravenou s, ONCE, 1 dose, Leni 08/12/20 at 1545, Routine [facility] Vital Signs Vital Name Observation Time Observation Value Comments S humberto Systolic blood pressure 2024-12-16 09:27:00 152 mm[Hg] [facility] Diastolic blood pressure 2024-12-16 09:27:00 92 mm[Hg] [facility] Heart rate 2024-12-16 09:27:00 66 [facility] Body temperature 2024-12-16 09:27:00 36.67 Keesha [facility] Respiratory rate 2024-12-16 09:27:00 16 /min [facility] Body height 2024-12-16 09:27:00 161.3 cm [facility] Body weight 2024-12-16 09:27:00 55.067 kg [facility] BMI 2024-12-16 09:27:00 21.17 kg/m2 Miguel A [facility] [place] [facility] Oxygen saturation in Arterial blood by Pulse oximetry 2024-12-16 09:27:00 97 /min [facility] Systolic blood pressure 2024-12-16 09:27:00 152 mm[Hg] [facility] Diastolic blood pressure 2024-12-16 09:27:00 92 mm[Hg] [facility] Epic Heart rate 2024-12-16 09:27:00 66 /min [facility] [place] [facility] Body temperature 2024-12-16 09:27:00 36.67 Keesha [facility] Epic Respiratory rate 2024-12-16 09:27:00 16 /min [facility] Body height 2024-12-16 09:27:00 161.3 cm Miguel A [facility] [place] Body weight 2024-12-16 09:27:00 55.067 kg Miguel A [facility] [place] [facility] BMI 2024-12-16 09:27:00 21.17 kg/m2 Miguel A [facility] [place] [facility] Oxygen saturation in Arterial blood by Pulse oximetry 2024-12-16 09:27:00 97 /min [facility] Her wasserman [facility] Systolic blood pressure 2024-09-17 10:05:00 142 mm[Hg] [facility] Diastolic blood pressure 2024-09-17 10:05:00 82 mm[Hg] [facility] Heart rate 2024-09-17 10:05:00 83 /min Memor ial [facility] Body temperature 2024-09-17 10:05:00 36.28 Keesha [facility] Epic Respiratory rate 2024-09-17 10:05:00 16 /min [facility] Body height 2024-09-17 10:05:00 162.6 cm Miguel A rial [facility] Body weight 2024-09-17 10:05:00 51.256 kg Miguel A rial [facility] BMI 2024-09-17 10:05:00 19.40 kg/m2 Miguel A rial [facility] Oxygen saturation in Arterial blood by Pulse oximetry 2024-09-17 10:05:00 97 /min [facility] Epic Systolic blood pressure 2024-09-17 10:05:00 142 mm[Hg] [facility] Diastolic blood pressure 2024-09-17 10:05:00 82 mm[Hg] Adeel wasserman [facility] Heart rate 2024-09-17 10:05:00 83 /min Jolene toddl Jose [facility] Body temperature 2024-09-17 10:05:00 36.28 Keesha [facility] Respiratory rate 2024-09-17 10:05:00 16 /min [facility] Jose [facility] Body height 2024-09-17 10:05:00 162.6 cm Miguel A Garcia [facility] Body weight 2024-09-17 10:05:00 51.256 kg [facility] 2024-09-17 10:05:00 19.40 kg/m2 Miguel Acamden [facility] Oxygen saturation in Arterial blood by Pulse oximetry 2024-09-17 10:05:00 97 /min [facility] Her wasserman [facility] Heart rate 2022-09-18 16:44:00 62 /min [facility] Respiratory rate 2022-09-18 16:44:00 20 /min [facility] Oxygen saturation in Arterial blood by Pulse oximetry 2022-09-18 16:44:00 99 /min [facility] Systolic blood pressure 2022-09-18 16:00:18 153 mm[Hg] [facility] Diastolic blood pressure 2022-09-18 16:00:18 86 mm[Hg] [facility] Body temperature 2022-09-18 15:03:00 36.89 Keesha [facility] Body height 2022-09-18 15:03:00 160 cm [facility] Body weight 2022-09-18 15:03:00 53.524 kg [facility] BMI 2022-09-18 15:03:00 20.90 kg/m2 [facility] Procedures Procedure Date / Time Performed Performing Clinicia n Source CT TRAUMA HEAD WO CONTRAST 2022-09-18 15:55:32 Niecy Ball [facility] CT TRAUMA CERVICAL SPINE WO CONTRAST 2022-09-18 15:55:32 Niecy Ball [facility] XR SHOULDER <2 VW LEFT 2022-09-18 15:40:40 Ashley Ball [facility] NOTICE OF PRIVACY PRACTICES 2022-09-18 14:59:10 Doctor Unassigned, [place] [facility] CONSENT/REFUSAL FOR DIAGNOSIS AND TREATMENT 2022-09-18 14:58:45 Doctor Unassigned, [place] [facility] MR ABDOMEN W WO CONTRAST MRCP 2020-08-12 22:16:07 Requisition, Paper [facility] NOTICE OF PRIVACY PRACTICES 2020-08-12 21:10:37 Doctor Unassigned, [place] [facility] CONSENT/REFUSAL FOR DIAGNOSIS AND TREATMENT 2020-08-12 21:10:07 Doctor Unassigned, [place] [facility] ASSIGNMENT OF BENEFITS 2020-08-12 21:09:46 Docto r Unassigned, [place] [facility] Encounters Start Date/Time End Date/Time Encounter Type Admission Type Attending [facility] Care Facility Care Department Encounter ID Source 2024-10-08 09:08:00 Outpatient [facility] [id number] [facility] 2024-12-16 09:30:00 2024-12-16 09:47:39 Office Visit Sirisha Rosario [id number] Layton Villaseñor 2024-12-16 09:04:18 2024-12-16 09:47:39 Outpatient Elective SIRISHA ROSARIO MHEOUT MHEOUT [id number] EOUT 2024-10-24 17:18:41 2024-10-24 17:18:41 Outpatient SFA SFA [id number] Todd Newton Billy 2024-10-08 14:25:58 2024-10-08 14:25:58 Outpatient SFA SFA [id number] Todd Lamar Billy 2024-09-17 09:39:26 2024-09-17 10:27:49 Outpatient Elective SIRISHA ROSARIOOUT MHEOUT [id number] EOUT 2024-09-17 09:30:00 2024-09-17 10:27:49 Office Visit Sirisha Rosario [id number] Layton Garcia [facility] 2024-04-17 00:00:00 2024-04-18 10:18:36 Sirisha Patel [id number] Layton Garcia [facility] 2023-07-03 00:00:00 2023-07-03 00:00:00 Outpatient GC_GCBZW_Ka diyala_S PRIV PRIV [id number] [facility] 2023-07-02 00:00:00 2023-07-02 00:00:00 Outpatient GC_GCBZW_Ka diyala_S PRIV PRIV [id number] [facility] 2022-09-18 09:05:00 2022-09-18 10:46:00 Emergency X [facility]ECY [facility] ERT [id number] [facility] 2022-09-18 09:05:00 2022-09-18 10:46:00 Emergency Niecy Ball [facility] [id number] [facility] 2020-08-12 15:11:31 2020-08-12 23:59:00 Outpatient R RADIOLOGY [facility] [id number] [facility] 2020-08-12 15:00:00 2020-08-12 23:59:00 Hospital Encounter Radiology [facility] [id number] [facility] 2020-08-12 15:00:00 2020-08-12 23:59:00 Hospital Encounter Radiology [facility] [id number] Results Test Description Test Time Test Comments [...] without and with contrast including MRCP studies. [facility], Jzkds3101-10-15 09:33:00* Test Item Value Reference Range Interpretation [...] assessment and management of chronic kidney failure. [facility] [place][Note 2] Notes Upcoming Encounters Date/Time Note Provider Source Health Maintenance Due Date Last Done Comments Bone Density Scan 1940 Medicare Annual Wellness (AWV) 1940 DTaP/Tdap/Td Vaccines (1 - Tdap) 1958 Pneumococcal Vaccine: 50+ Ye ars (1 of 2 - PCV) 1958 Zoster Vaccines (1 of 2) 1989 Respiratory Syncytial Virus (RSV) Adult Series (1 - 1-dose 75+ series) 2014 Influenza Vaccine (Season Ended) 2025 HIB Vaccines Aged Out No longer eligi [...] on patient's age to complete this topic [facility]696[facility]38 10:03:52 Diagnosis MCI (mild cognitive impairment) with memory loss - Primary Mild cognitive impairment, so stated [facility] HospitalVyqdfcr8330-53-75 10:03:52 [facility] HospitalNydmfnw4607-84-47 10:03:52* [facility] HospitalRmdjqna8965-61-13 10:03:52 [facility] HospitalHjiuopi0625-29-07 10:03:52* Sirisha Rosario MD - 12/16/2024 9:30 AM CDT History of Present Illness HPI Still has problems falling asleep. Memory stable, no side effects on the medication. Weight stable. Here with her son. No significant behavioral problems. No medication changes planned today. Allergies as of 12/16/2024 - Reviewed 12/16/2024 Allergen Reaction Noted Acetaminophen GI intolerance 10/08/2018 Codeine Nausea And Vomiting and GI intolerance 10/08/2018 has a current medication list which includes the following prescription(s): diphenhydramine hcl (sleep), meperidine, omeprazole, donepezil, memantine, and mirtazapine. Vitals:12/16/24 0927 BP: (!) 152/92 Pulse: 66 Resp: 16 Temp: 36.7 ?C (98 ?F) SpO2: 97% Neurological Exam Mental Status Awake and alert. Speech is normal. Able to name objects and name parts of objects. Not year, month, day. Cranial NervesCN II: Visual acuity is normal. [...] impairment) with memory loss Other orders - donepezil (Aricept) 5 MG tablet; Take 1 tablet by mouth at bedtime. - memantine (Namenda) 5 MG tablet; Take 1 tablet by mouth in the morning and 1 tablet in the evening. - mirtazapine (Remeron) 15 MG tablet; Take 1 tablet by mouth at bedtime. Stable, continue present medications. [facility]53 10:03:51* [facility] CenterTbzwnzh5454-12-30 10:03:51 [facility]ymovzp4673-85-43 10:03:51* Sirisha Rosario MD - 12/16/2024 9:30 AM CDT History of Present Illness HPI Still has problems falling asleep. Memory stable, no side effects on the medication. Weight stable. Here with her son. No significant behavioral problems. No medication changes planned today. Allergies as of 12/16/2024 - Reviewed 12/16/2024 Allergen Reaction Noted Acetaminophen GI intolerance 10/08/2018 Codeine Nausea And Vomiting and GI intolerance 10/08/2018 has a current medication list which includes the following prescription(s): diphenhydramine hcl (sleep), meperidine, omeprazole, donepezil, memantine, and mirtazapine. Vitals:12/16/24 0927 BP: (!) 152/92 Pulse: 66 Resp: 16 Temp: 36.7 ?C (98 ?F) SpO2: 97% Neurological Exam Mental Status Awake and alert. Speech is normal. Able to name objects and name parts of objects. Not year, month, day. Cranial NervesCN II: Visual acuity is normal. [...] impairment) with memory loss Other orders - donepezil (Aricept) 5 MG tablet; Take 1 tablet by mouth at bedtime. - memantine (Namenda) 5 MG tablet; Take 1 tablet by mouth in the morning and 1 tablet in the evening. - mirtazapine (Remeron) 15 MG tablet; Take 1 tablet by mouth at bedtime. Stable, continue present medications. [facility]2025-04-15 10:03:51Upcoming Encounters Health Maintenance Due Date Last Done Comments Bone Density Scan 1940 Medicare Annual Wellness (AWV) 1940 DTaP/Tdap/Td Vaccines (1 - Tdap) 1958 Pneumococcal Vaccine: 50+ Ye ars (1 of 2 - PCV) 1958 Zoster Vaccines (1 of 2) 1989 Respiratory Syncytial Virus (RSV) Adult Series (1 - 1-dose 75+ series) 2014 Influenza Vaccine (Season Ended) 2025 HIB Vaccines Aged Out No longer eligi [...] on patient's age to complete this topic [facility] HospitalWqvkvcn9549-38-24 10:03:51 Diagnosis MCI (mild cognitive impairment) with memory loss - Primary Mild cognitive impairment, so stated [facility] HospitalIessbsd8792-01-13 10:03:51 [facility] HospitalMgtsfdd1719-11-96 10:39:27* [facility] HospitalFddoioq3984-81-72 10:39:27 [facility] HospitalFkqtapt9040-53-17 10:39:27* Sirisha Rosario MD - 09/17/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 [facility] HospitalNgbsddb6790-14-50 10:39:27Upcoming Encounters Health Maintenance Due Date Last [...] on patient's age to complete this topic [facility] HospitalGfuquxd3248-05-00 10:39:27 Diagnosis MCI (mild cognitive impairment) with memory loss - Primary Mild cognitive impairment, so stated [facility] HospitalIegixhf1253-42-00 10:39:27 [facility]xn[facility]fj8761-64-68 10:18:46 [place] 893774-08-16 10:18:46* [facility] HospitalFoodmdq3923-87-57 10:18:31 Medication filled, please call patient and have them schedule a follow up. T [facility]
[2024-12-21] MEDS ORDERED: MORPHINE 2 MG/ML SYR ONE (16:55)
[2024-12-21] MEDS ORDERED: LIDOCAINE VISCOUS 2% 10ML ORAL SOLN ONE (16:56)
[2024-12-21] MEDS ORDERED: MAGNES/ALUMIN/SIMET 30ML UCUP ONE (16:56)
[2024-12-21] MEDS ORDERED: ONDANSETRON 4 MG/2 ML VIAL ONE ×2 (16:56→19:34)
[2024-12-21 17:02] LABS: Absolute Eosinophils 0.3 K/uL (0-0.5); Absolute Lymphocytes (CBC) 1.5 K/uL (0.7-4.9); Absolute Monocytes 0.5 K/uL (0.1-1.3); Absolute Neutrophil 3.8 K/uL (1.8-8.0); Basophils % 0.5 % (0-1.3); Hemoglobin 13.3 g/dL (12.0-15.0); MCH 31.3 pg (27.0-35.0); MCV 92.1 fL (80-100); MPV 7.4 fL (7.6-11.3); Monocytes % 8.4 % (3.3-12.3); Neutrophils % 62.1 % (41.7-73.7); Platelets 270 thou/uL (152-406); RBC Red Blood Cell Count 4.24 M/uL (3.86-4.86); Red Cell Distribution Width 13.6 % (12.1-15.2)
[2024-12-21 17:09] LABS: PT Prothrombin Time 11.2 SECONDS (10-13.0); Protime INR 0.98
[2024-12-21 17:20] LABS: Influenza A Ag Negative; Influenza B Ag Negative; SARS-CoV-2 Antigen Rapid Res Negative (Negative)
[2024-12-21 17:30] LABS: AST/SGOT 12 U/L (15-37); Albumin 3.4 g/dL (3.4-5.0); Albumin/Globulin Ratio 0.9 (1.1-1.8); Alkaline Phosphatase 88 U/L (45-117); Anion Gap 7.5 mEq/L (5.0-15.0); BUN Blood Urea Nitrogen 11 mg/dL (7-18); Bicarbonate 27 mEq/L (21-32); Bilirubin Total 0.3 mg/dL (0.2-1.0); Globulin 3.8 g/dL (2.3-3.5); Glomerular Filtration Rate 55 ml/min (=/>90); Glucose Level 104 mg/dL (74-106); Lipase 50 U/L (13-75); Magnesium 2.2 mg/dL (1.6-2.4); NT PRO-BNP 89 pg/mL (<450); Potassium 3.5 mEq/L (3.5-5.1); Protein, Total 7.2 g/dL (6.4-8.2); Sodium Level 139 mEq/L (136-145); Troponin High Sensitivity 4.5 pg/mL (<58.9)
[2024-12-21 17:46] LABS: ALT/SGPT < 14 U/L (13-56); Bilirubin Direct < 0.2 mg/dL (0-0.2); Bilirubin Indirect, Calculated 0.1 mg/dL (0.2-0.8)
--- NOTE | 2024-12-21 17:50 | ER ---
Nurse's Notes [facility] Name: Milan Weir Age: 84 yrs Sex: Female : 1940 Arrival Date: 12/21/2024 Time: 15:53 Bed 13 Private MD: Diagnosis: Cough;COPD/ Chronic obstructive pulmonary disease with (acute) exacerbation Presentation: 12/21 16:13 Chief complaint: EMS states: CHOKING SENSATION AFTER EATING. Coronavirus screen: At bp this time, the client does not indicate any symptoms associated with coronavirus-19. Ebola Screen: No symptoms or risks identified at this time. Initial Sepsis Screen: Does the patient meet any 2 criteria? No. Patient's initial sepsis screen is negative. Does the patient have a suspected source of infection? No. Patient's initial sepsis screen is negative. Risk Assessment: Do you want to hurt yourself or someone else? Patient reports no desire to harm self or others. Onset of symptoms is unknown. 16:13 Method Of Arrival: EMS: [facility] bp 16:13 Acuity: JARRETT 3 bp Triage Assessment: 16:14 General: Appears in no apparent distress. comfortable, Behavior is cooperative, bp anxious. Pain: Denies pain. EENT: No deficits noted. Neuro: No deficits noted. Cardiovascular: No deficits noted. Respiratory: No deficits noted. GI: No signs and/or symptoms were reported involving the gastrointestinal system. : No signs and/or symptoms were reported regarding the genitourinary system. Derm: No deficits noted. Musculoskeletal: No deficits noted. Historical: - Allergies: 16:13 Codeine; bp 16:13 Tylenol-Codeine; bp - PMHx: 16:13 Alzheimers; COPD; HARD OF HEARING; Hernia; Pancreatitis; bp - PSHx: 16:13 Appendectomy; Adenoid excision; breast implants; Cholecystectomy; double masectomy; bp stomach surgery to prevent vomiting; Tonsillectomy; Total abdominal hysterectomy; - Immunization history:: Adult Immunizations up to date. - Infectious Disease History:: Denies. - Social history:: Smoking status: unknown. - Family history:: not pertinent. Screenin:17 [facility] ED Fall Risk Assessment (Adult) History of falling in the last 3 months, bp including since admission No falls in past 3 months (0 pts) Confusion or Disorientation No (0 pts) Intoxicated or Sedated No (0 pts) Impaired Gait No (0 pts) Mobility Assist Device Used No (0 pt) Altered Elimination No (0 pt) Score/Fall Risk Level 0 - 2 = Low Risk. Abuse screen: Denies threats or abuse. Denies injuries from another. Nutritional screening: No deficits noted. Tuberculosis screening: No symptoms or risk factors identified. Assessment: 16:15 Reassessment: No changes from previously documented assessment. Patient is alert, bp oriented x 3, equal unlabored respirations, skin warm/dry/pink. General: Appears in no apparent distress. comfortable, Behavior is calm, cooperative, appropriate for age. 18:00 Reassessment: Patient appears in no apparent distress at this time. Patient is alert, bp oriented x 3, equal unlabored respirations, skin warm/dry/pink. 19:15 Reassessment: Patient appears in no apparent distress at this time. No changes from cp4 previously documented assessment. Patient and/or family updated on plan of care and expected duration. Pain level reassessed. Patient is alert, oriented x 3, equal unlabored respirations, skin warm/dry/pink. Vital Signs: 16:15 BP 153 / 76; Pulse 72; Resp 16; Temp 98; Pulse Ox 99% ; bp 18:50 BP 177 / 75; Pulse 97; Resp 14; Pulse Ox 100% ; bp 21:00 BP 139 / 58; Pulse 92; Resp 16; Pulse Ox 98% ; cp4 ED Course: 16:10 Patient arrived in ED. bp 16:13 Donaldo Pennington, RN is Primary Nurse. bp 16:13 Triage completed. bp 16:14 Arm band placed on. bp 16:16 Sean Seymour MD is Attending Physician. nargis 16:17 Patient has correct armband on for positive identification. bp 16:50 Initial lab(s) drawn, by mn, COVID swab sent to lab. Flu and/or RSV swab sent to lab. bp Inserted saline lock: 22 gauge in left antecubital area, using aseptic technique. Blood collected. Flushed with 10 mL NS. 17:08 EKG done, by ED staff, reviewed by Sean Seymour MD. am7 17:48 Tj Simpson MD is Hospitalizing Provider. nargis 17:56 XRAY Chest (1 view) In Process Unspecified. EDMS 20:48 No provider procedures requiring assistance completed. cp4 22:11 Provided Education on: admission. cp4 22:11 Patient admitted, IV remains in place. cp4 Administered Medications: 16:21 CANCELLED (Physician Discretion): folic acid1 mg IVPB once ll1 16:21 CANCELLED (Physician Discretion): ns 0.9% 1000 ml IV at 1000 ml once; to be given as a ll1 bolus over 60 minutes 16:22 CANCELLED (Physician Discretion): Banana Bag - (ns 0.9% 1000 ml, folic acid ivpb 1 mg, ll1 [id number] mg, multivitamin1 amp) IV at 500 ml/hr once 17:01 Drug: Ondansetron IVP 4 mg IVP once; over 2 minutes Route: IVP; Site: left antecubital; hb 17:02 Drug: GI Cocktail without - (Maalox PO 30 ml, Lidocaine Mucous Membrane 2 % 15 hb ml) PO once Route: PO; 17:02 Drug: morphine IVP or IV 2 mg IVP once over 4 mins Route: IVP; Infused Over: 4 mins; hb Site: left antecubital; 18:49 Drug: Ipratropium Inhalation Aerosol 0.5 mg Inhalation once Route: Inhalation; bp 18:49 Drug: levofloxacin IVPB 500 mg 100 ml IVPB once over 60 mins Volume: 100 ml; Route: bp IVPB; Infused Over: 60 mins; Site: left forearm; 19:07 Follow up: IV Status: Completed infusion bp 18:50 Drug: MethylPrednisoLONE IVP 125 mg IVP once Route: IVP; Site: left forearm; bp 20:14 Follow up: Response: No adverse reaction cp4 18:50 Drug: Levalbuterol Inhalation 3.75 mg Inhalation once Route: Inhalation; bp 19:39 Drug: Ondansetron IVP 4 mg IVP once; over 2 minutes Route: IVP; Site: left antecubital; cp4 20:14 Follow up: Response: No adverse reaction cp4 19:39 Drug: Famotidine IVP 20 mg IVP once; dilute with 10 mL 0.9% NaCl; give over 2 minutes cp4 Route: IVP; Site: left antecubital; 20:13 Follow up: Response: No adverse reaction cp4 19:39 Drug: diphenhydrAMINE IVP 25 mg IVP once Route: IVP; Site: left antecubital; cp4 20:13 Follow up: Response: No adverse reaction cp4 Medication: 22:11 VIS not applicable for this client. cp4 Outcome: 17:49 Decision to Hospitalize by Provider. nargis 22:10 Admitted to Med/surg accompanied by tech, via wheelchair, with chart, cp4 22:10 Condition: stable 22:10 Instructed on the need for admit, 22:12 Patient left the ED. cp4 Signatures: Dispatcher [employer] EDSean Everett MD MD cha Baxter, Heather, RN RN Donaldo Valentin RN RN Larissa Priest cp4 Juju Troy Lynsay RN ll1
--- NOTE | 2024-12-21 17:50 | EDPHYS ---
Physician Documentation [facility] Name: Milan Weir Age: 84 yrs Sex: Female : 1940 Arrival Date: 12/21/2024 Time: 15:53 Bed 13 Private MD: ED Physician Sean Seymour HPI: 12/21 17:40 This 84 yrs old Female presents to ER via EMS with complaints of COUGH nargis CONGESTION, CHOKE. 17:40 The patient has shortness of breath at rest, with light activity. Onset: The nargis symptoms/episode began/occurred 3 day(s) ago. Duration: The symptoms are continuous, and are steadily getting worse. The patient's shortness of breath is aggravated by coughing, exertion, light activity. The patient or guardian reports airway noise, cough, difficulty breathing, flu symptoms, arthralgias, low-grade fever, myalgias. Modifying factors: The symptoms are alleviated by elevating head, the symptoms are aggravated by activity, lying flat, talking. Associated signs and symptoms: Pertinent positives: non-productive cough. Severity of symptoms: At their worst the symptoms were moderate in the emergency department the symptoms are unchanged. The patient or guardian reports. Historical: - Allergies: 16:13 Codeine; bp 16:13 Tylenol-Codeine; bp - PMHx: 16:13 Alzheimers; COPD; HARD OF HEARING; Hernia; Pancreatitis; bp - PSHx: 16:13 Appendectomy; Adenoid excision; breast implants; Cholecystectomy; double masectomy; bp stomach surgery to prevent vomiting; Tonsillectomy; Total abdominal hysterectomy; - Immunization history:: Adult Immunizations up to date. - Infectious Disease History:: Denies. - Social history:: Smoking status: unknown. - Family history:: not pertinent. ROS: 17:40 Constitutional: Negative for fever, chills, and weight loss, Eyes: Negative for injury, nargis pain, redness, and discharge, ENT: Negative for injury, pain, and discharge, Neck: Negative for injury, pain, and swelling, Cardiovascular: Negative for chest pain, palpitations, and edema, Abdomen/GI: Negative for abdominal pain, nausea, vomiting, diarrhea, and constipation, Back: Negative for injury and pain, : Negative for injury, bleeding, discharge, and swelling, MS/Extremity: Negative for injury and deformity, Skin: Negative for injury, rash, and discoloration, Neuro: Negative for headache, weakness, numbness, tingling, and seizure, Psych: Negative for depression, anxiety, suicide ideation, homicidal ideation, and hallucinations, Allergy/Immunology: Negative for hives, rash, and allergies, Endocrine: Negative for neck swelling, polydipsia, polyuria, polyphagia, and marked weight changes, 17:40 Respiratory: Positive for cough, shortness of breath, wheezing, inspiratory, expiratory, Exam: 17:43 Constitutional: This is a well developed, well nourished patient who is awake, alert, nargis and in no acute distress. Head/Face: Normocephalic, atraumatic. Eyes: Pupils equal round and reactive to light, extra-ocular motions intact. Lids and lashes normal. Conjunctiva and sclera are non-icteric and not injected. Cornea within normal limits. Periorbital areas with no swelling, redness, or edema. ENT: Nares patent. No nasal discharge, no septal abnormalities noted. Tympanic membranes are normal and external auditory canals are clear. Oropharynx with no redness, swelling, or masses, exudates, or evidence of obstruction, uvula midline. Mucous membranes moist. Neck: Trachea midline, no thyromegaly or masses palpated, and no cervical lymphadenopathy. Supple, full range of motion without nuchal rigidity, or vertebral point tenderness. No Meningismus. Chest/axilla: Normal chest wall appearance and motion. Nontender with no deformity. No lesions are appreciated. Cardiovascular: Regular rate and rhythm with a normal S1 and S2. No gallops, murmurs, or rubs. Normal PMI, no JVD. No pulse deficits. Abdomen/GI: Soft, non-tender, with normal bowel sounds. No distension or tympany. No guarding or rebound. No evidence of tenderness throughout. Back: No spinal tenderness. No costovertebral tenderness. Full range of motion. Female : Normal external genitalia. Skin: Warm, dry with normal turgor. Normal color with no rashes, no lesions, and no evidence of cellulitis. MS/ Extremity: Pulses equal, no cyanosis. Neurovascular intact. Full, normal range of motion., bilateral aka Neuro: Awake and alert, GCS 15, oriented to person, place, time, and situation. Cranial nerves II-XII grossly intact. Motor strength 5/5 in all extremities. Sensory grossly intact. Cerebellar exam normal. Normal gait. Psych: Awake, alert, with orientation to person, place and time. Behavior, mood, and affect are within normal limits. 17:43 ECG was reviewed by the Attending Physician. 17:43 Respiratory: the patient does not display signs of respiratory distress, Respirations: labored breathing, that is mild, asymmetrical chest movement, is not seen, accessory muscle usage, is absent, Breath sounds: bronchial sounds, that are mild, are scattered, decreased breath sounds, that are mild, are located in both bases, rhonchi, that are mild, are scattered, stridor, is not appreciated, + upper airway congestion. wheezing: inspiratory expiratory is heard diffusely, Vital Signs: 16:15 BP 153 / 76; Pulse 72; Resp 16; Temp 98; Pulse Ox 99% ; bp 18:50 BP 177 / 75; Pulse 97; Resp 14; Pulse Ox 100% ; bp 21:00 BP 139 / 58; Pulse 92; Resp 16; Pulse Ox 98% ; cp4 MDM: 16:17 Medical Screening Exam initiated [facility] 16:17 Medical Screening Exam initiated [facility] 17:45 Differential diagnosis: asthma, Bronchitis CHF exacerbation, Chronic Obstructive nargis Pulmonary Disease obstructed airway, bronchitis, flu, URI, Myocardial Infarction pneumonia, Pneumothorax. Antibiotic administration: Levaquin given. Differential Diagnosis: Obstructed Airway Bronchitis Influenza Upper Respiratory Infection Sinusitis Pharyngitis Otitis Media Asthma Exacerbation Viral Syndrome Pneumonia Tracheal Injury. Immunization status: Pneumococcal vaccine: within last 5 years. Influenza vaccine: within last 5 years. Data reviewed: vital signs, nurses notes, lab test result(s), EKG, radiologic studies, plain films. Consideration of Admission/Observation Patient was admitted/placed on observation. Escalation of care including admission/observation considered. I considered the following discharge prescriptions or medication management in the emergency department Medications were administered in the Emergency Department. See MAR. Independent interpretation of the following test(s) in the Emergency Department EKG: See my EKG interpretation above. Test considered but Not performed: CT: NO CT CHEST. Historians other than the Patient: EMS: EMS WELL INFORMED. Care significantly affected by the following chronic conditions: Chronic Obstructive Pulmonary Disease, ALZHEIMERS, HERNIA, PANCREATITIS. Counseling: I had a detailed discussion with the patient and/or guardian regarding the historical points, exam findings, and any diagnostic results supporting the discharge/admit diagnosis, lab results, radiology results, the need for further work-up and treatment in the hospital. 12/21 16:19 Order name: Basic Metabolic Panel; Complete Time: 17:49 nargis 12/21 16:19 Order name: CBC with Diff; Complete Time: 17:37 12/21 16:19 Order name: LFT's; Complete Time: 17:49 12/21 16:19 Order name: Magnesium; Complete Time: 17:49 12/21 16:19 Order name: NT PRO-BNP; Complete Time: 17:49 12/21 16:19 Order name: PT-INR; Complete Time: 17:37 12/21 16:19 Order name: Troponin HS; Complete Time: 17:49 nargis 12/21 16:19 Order name: Lipase; Complete Time: 17:49 nargis 12/21 16:19 Order name: Urinalysis w/ reflexes 12/21 16:19 Order name: COVID-19 Ag + Flu A+B Ag; Complete Time: 17:37 nargis 12/21 17:38 Order name: Blood Culture Adult (2) [facility] 12/21 19:51 Order name: CBC with Automated Diff EDMS 12/21 19:51 Order name: CBC with Automated Diff EDMS 12/21 19:51 Order name: Comprehensive Metabolic Panel EDUT 12/21 19:51 Order name: Comprehensive Metabolic Panel EDUT 12/21 16:19 Order name: XRAY Chest (1 view) nargis 12/21 16:19 Order name: EKG; Complete Time: 16:20 12/21 16:19 Order name: Cardiac monitoring; Complete Time: 16:20 12/21 16:19 Order name: EKG - Nurse/Tech; Complete Time: 17:08 12/21 16:19 Order name: IV Saline Lock; Complete Time: 17:56 12/21 16:19 Order name: Labs collected and sent; Complete Time: 16:20 12/21 16:19 Order name: O2 Per Protocol; Complete Time: 16:20 12/21 16:19 Order name: O2 Sat Monitoring; Complete Time: 16:20 12/21 17:40 Order name: PO challenge; Complete Time: 17:45 [facility] EC:43 Rate is 66 beats/min. Rhythm is regular. QRS [place] is Normal. IN interval is normal. QRS nargis interval is normal. QT interval is normal. T waves are Normal. No ST changes noted. Clinical impression: NSR w/ Non-specific ST/T Changes and No evidence of ischemia. Interpreted by me. Reviewed by me. Administered Medications: 16:21 CANCELLED (Physician Discretion): folic acid1 mg IVPB once ll1 16:21 CANCELLED (Physician Discretion): ns 0.9% 1000 ml IV at 1000 ml once; to be given as a ll1 bolus over 60 minutes 16:22 CANCELLED (Physician Discretion): Banana Bag - (ns 0.9% 1000 ml, folic acid ivpb 1 mg, ll1 [id number] mg, multivitamin1 amp) IV at 500 ml/hr once 17:01 Drug: Ondansetron IVP 4 mg IVP once; over 2 minutes Route: IVP; Site: left antecubital; hb 17:02 Drug: GI Cocktail without - (Maalox PO 30 ml, Lidocaine Mucous Membrane 2 % 15 hb ml) PO once Route: PO; 17:02 Drug: morphine IVP or IV 2 mg IVP once over 4 mins Route: IVP; Infused Over: 4 mins; hb Site: left antecubital; 18:49 Drug: Ipratropium Inhalation Aerosol 0.5 mg Inhalation once Route: Inhalation; bp 18:49 Drug: levofloxacin IVPB 500 mg 100 ml IVPB once over 60 mins Volume: 100 ml; Route: bp IVPB; Infused Over: 60 mins; Site: left forearm; 19:07 Follow up: IV Status: Completed infusion bp 18:50 Drug: MethylPrednisoLONE IVP 125 mg IVP once Route: IVP; Site: left forearm; bp 20:14 Follow up: Response: No adverse reaction cp4 18:50 Drug: Levalbuterol Inhalation 3.75 mg Inhalation once Route: Inhalation; bp 19:39 Drug: Ondansetron IVP 4 mg IVP once; over 2 minutes Route: IVP; Site: left antecubital; cp4 20:14 Follow up: Response: No adverse reaction cp4 19:39 Drug: Famotidine IVP 20 mg IVP once; dilute with 10 mL 0.9% NaCl; give over 2 minutes cp4 Route: IVP; Site: left antecubital; 20:13 Follow up: Response: No adverse reaction cp4 19:39 Drug: diphenhydrAMINE IVP 25 mg IVP once Route: IVP; Site: left antecubital; cp4 20:13 Follow up: Response: No adverse reaction cp4 Disposition Summary: 12/21/24 17:49 Hospitalization Ordered Notes: Hospitalization Status: Inpatient Admission nargis Provider: Tj Simpson cha Location: Telemetry/MedSurg (Inpatient) nargis Condition: Fair nargis Problem: new nargis Symptoms: have improved nargis Bed/Room Type: Standard nargis Room Assignment: 211(12/21/24 20:50) vc1 Diagnosis - Cough nargis - COPD/ Chronic obstructive pulmonary disease with (acute) exacerbation nargis Forms: - Medication Reconciliation Form nargis - SBAR form nargis - Leadership Thank You Letter nargis Signatures: Dispatcher [employer] EDMS Sean Seymour MD MD cha Baxter, Heather, RN RN hb Peltier, Brian, RN RN bp Lewis, Lynsay, RN RN ll1 Pat Mohan RN RN vc1 Larissa Temple cp4 Corrections: (The following items were deleted from the chart) 16:21 16:19 foLIC Acid IVPB 1 mg IVPB once ordered. nargis ll1 16:21 16:19 NS 0.9% IV 1000 ml IV at 1000 ml once; to be given as a bolus over 60 minutes ll1 ordered. nargis 16:21 16:21 foLIC Acid IVPB 1 mg IVPB once ordered. ll1 ll1 16:21 16:21 NS 0.9% IV 1000 ml IV at 1000 ml once; to be given as a bolus over 60 minutes ll1 ordered. ll1 16:22 16:19 Banana Bag - (Multivitamin IV 1 amp, NS 0.9% IV 1000 ml, Thiamine IV 100 mg, ll1 foLIC Acid IVPB 1 mg) IV at 500 ml/hr once ordered. nargis 16:22 16:22 Banana Bag - (Multivitamin IV 1 amp, NS 0.9% IV 1000 ml, Thiamine IV 100 mg, ll1 foLIC Acid IVPB 1 mg) IV at 500 ml/hr once ordered. ll1 17:26 16:20 Head Brain Wo Cont+CT.RAD.BRZ ordered. EDMS EDMS 20:50 17:49 nargis vc1
--- NOTE | 2024-12-21 18:12 | RAD REPORT ---
Procedure: Chest Single View HISTORY: Cough COMPARISON: October 2024 FINDINGS: The lungs appear clear of acute infiltrate. Lungs are mildly to moderately hyperaerated. Mild chronic appearing interstitial lung opacities. Central venous catheter in place. No significant pleural effusion noted. The heart is normal size. IMPRESSION: No acute abnormality is displayed.
[2024-12-21] MEDS ORDERED: IPRATROPIUM BROM 0.5MG/2.5ML ONE (18:27)
[2024-12-21] MEDS ORDERED: LEVALBUTEROL 1.25 MG/3 ML NEB ONE (18:27)
[2024-12-21] MEDS ORDERED: METHYLPREDNISOLONE 125 MG INJ ONE (18:27)
[2024-12-21] MEDS ORDERED: Levofloxacin500mg IV 500 MG/100 ML BAG IV ONE (18:28)
[2024-12-21] MEDS ORDERED: MORPHINE 4 MG/ML SYR ONE (18:39)
[2024-12-21] MEDS ORDERED: DIPHENHYDRAMINE 50 MG/ML VIAL ONE (19:34)
[2024-12-21] MEDS ORDERED: FAMOTIDINE 20 MG/2 ML VIAL IV ONE (19:34)
[2024-12-21] MEDS ORDERED: IPRATROPIUM BROM 0.5MG/2.5ML NEB PRN (19:46)
[2024-12-21] MEDS ORDERED: ALBUTEROL 2.5 MG/3 ML NEB SOL NEB PRN (19:46)
[2024-12-21] MEDS ORDERED: ACETAMINOPHEN 325 MG TABLET PO PRN (19:46)
--- NOTE | 2024-12-21 19:50 | P.HP ---
Certification for Inpatient Patient admitted to: Inpatient With expected LOS: >2 Midnights Practitioner: I am a practitioner with admitting privileges, knowledge of patient current condition, hospital course, and medical plan of care. Services: Services provided to patient in accordance with Admission requirements found in Title 42 Section 412.3 of the Code of Federal Regulations Patient History Date of Service: 12/21/24 Reason for admission: SOB History of Present Illness: 84 yrs old Female with past medical history of Alzheimers, COPD, hard of hearing ,Hernia , history of Pancreatitis came to ER with cough and congestion and shortness of breath which has been progressively getting worse over the last 3 days. Denies any chills. Shortness of breath aggravated by coughing and minimal activities. She had flulike symptoms for the last few days associated with low-grade fever. She also complains of arthralgias and myalgias. Cough is nonproductive. Denies any chest pain Patient was assessed in the ER and was admitted for further management of COPD exacerbation Allergies codeine Allergy (Verified 10/27/24 12:59) Nausea/Vomiting acetaminophen [From Tylenol] Adverse Reaction (Verified 10/27/24 12:59) Nausea/Vomiting tramadol Adverse Reaction (Verified 10/27/24 12:59) Nausea/Vomiting Home medications list reviewed: Yes Home Medications: Tramadol HCl [Ultram] 50 mg PO PRN 02/16/24 Donepezil [Aricept*] 5 mg PO BEDTIME 09/20/24 Memantine HCl 5 mg PO DAILY 09/20/24 Meperidine HCl 50 mg PO BID 09/20/24 Mirtazapine 15 mg PO DAILY 09/20/24 Promethazine HCl 12.5 mg PO PRN PRN 09/20/24 Promethazine Suppos [Phenergan -Suppos*] 12.5 mg RC PRN 09/20/24 Tramadol HCl [Ultram] 50 mg PO PRN 09/20/24 Lidocaine 4% Patch [Lidoderm 5% Patch*] 1 patch TOP DAILY PRN 12 Days #12 pat 09/24/24 Pantoprazole Sodium [Protonix] 40 mg PO DAILY 40 Days #30 tab 09/24/24 Sucralfate [Carafate*] 10 ml PO QID 10 Days #1 bottle 09/24/24 - Past Medical/Surgical History Diabetic: No Past Medical History: Reviewed- Non-Contributory -: COPD -: Alzheimer's disease -: pancreatitis -: liver cirrhosis -: kidney disease -: bladder Past Surgical History: Reviewed- Non-Contributory -: tonsilectomy -: appendectomy -: double mastectomy with reconstruction -: cholecystectomy -: gall bladder removed 2002 -: abdominal surgery Psychosocial/ Personal History: Lives at home with her daughter - Family History Family History: Reviewed- Non-Contributory - Family History Mother Notes: ALZHEIMERS Brother -: GI disease Notes: internal bleeding - Social History Smoking Status: Former smoker Alcohol use: No CD- Drugs: No Caffeine use: Yes Review of Systems 10-point ROS is otherwise unremarkable Other: Constitutional: Reports: generalized weakness. Skin: Denies: rash. Allergy/Immun: Denies: rhinorrhea, sneezing. Eyes: Denies: visual loss/blurred. ENT: Denies: earache, nasal congestion. Respiratory: Denies: non productive cough. Cardiovascular: Denies: chest pain, palpitations. GI: Denies: diarrhea, nausea. : Denies: dysuria. Musculoskeletal: Reports: arthritis. Denies: extremity pain. Heme: Denies: bleeding. Endocrine: Denies: polydipsia. Neuro: Reports: dizziness, gait problem, lightheaded, spinning sensation. Psych: Reports: anxiety. All systems rev & neg: except as noted Physical Examination - Vital Signs Temperature: 97.4 F Blood Pressure: 168/102 Pulse: 86 Respirations: 18 Pulse Ox (%): 94 - Physical Exam General: Alert, Oriented x3, Mild distress HEENT: Atraumatic, Normocephalic Neck: Supple Respiratory: Diminished, Crackles/rales, Expiratory wheezes Cardiovascular: Regular rate/rhythm, Normal S1 S2 Capillary refill: <2 Seconds Gastrointestinal: Soft and benign, W/out hepatosplenomegaly Musculoskeletal: No clubbing, No swelling Integumentary: No rashes Neurological: Other (Alert, Awake ) Lymphatics: No axilla or inguinal lymphadenopathy - Studies Laboratory Data (last 24 hrs) 12/21/24 12/21/24 12/21/24 16:45 16:45 16:45 WBC 6.10 Hgb 13.3 Hct 39.0 Plt Count 270 PT 11.2 INR 0.98 Sodium 139 Potassium 3.5 BUN 11 Creatinine 1.01 Glucose 104 Magnesium 2.2 Total Bilirubin 0.3 AST 12 L ALT < 14 Alkaline Phosphatase 88 Lipase 50 Assessment and Plan - Plan COPD exacerbation Monitor closely on telemetry Started on bronchodilators Oxygen supplementation Steroids added ABG findings noted Chest x-ray findings noted Hypertension Antihypertensives titrated Continue home medications and titrate as needed Hyperlipidemia Continue statin URI Possible viral syndrome Started on steroids Monitor closely GI/DVT prophylaxis Advanced directive full code Discharge Plan: Home Plan to discharge in: 48 Hours - Advance Directives Does patient have a Living Will: Yes Does patient have a Durable POA for Healthcare: No - Code Status/Comfort Care Code Status: Full Code Time Spent Managing Pts Care (In Minutes): 48
[2024-12-21] MEDS ORDERED: GUAIFENESIN/DM 5 ML UCUP PO PRN (21:47)
[2024-12-21] MEDS ORDERED: LORATADINE 10 MG TAB PO PRN (21:47)
[2024-12-21] MEDS ORDERED: HYDRALAZINE HCL 20 MG/ML VIAL IV PRN (21:48)
[2024-12-21 21:51] VITALS: BMI 21.2
[2024-12-21] MEDS: MEPERIDINE HCL 50 MG PO SCH (22:29)
[2024-12-21 22:43] VITALS: O2SAT 98
[2024-12-21] MEDS: TRAMADOL HCL 50 MG TAB PO SCH (23:12)
[2024-12-21] MEDS: PROMETHAZINE 25 MG TABLET PO PRN (23:13)
[2024-12-21] MEDS: LIDOCAINE 4% PATCH TOP PRN (23:14)
[2024-12-21] MEDS: METHYLPREDNISOLONE 125 MG INJ IV SCH (23:14)
[2024-12-22] MEDS: ONDANSETRON 4 MG/2 ML VIAL IV PRN (01:14)
[2024-12-22] MEDS: FENTANYL CITR 100 MCG/2 ML IV PRN (01:14)
[2024-12-22 05:30] LABS: Absolute Lymphocytes (CBC) 0.5 K/uL (0.7-4.9); Absolute Monocytes 0.1 K/uL (0.1-1.3); Absolute Neutrophil 6.8 K/uL (1.8-8.0); Basophils % 0.1 % (0-1.3); Hematocrit 34.1 % (36.0-45.0); Hemoglobin 11.8 g/dL (12.0-15.0); Lymphocytes % 6.2 % (15.3-44.8); MCH 31.9 pg (27.0-35.0); MCHC 34.5 g/dL (32.0-36.0); MCV 92.4 fL (80-100); MPV 7.5 fL (7.6-11.3); Neutrophils % 92.7 % (41.7-73.7); Platelets 247 thou/uL (152-406); RBC Red Blood Cell Count 3.69 M/uL (3.86-4.86); Red Cell Distribution Width 13.6 % (12.1-15.2)
[2024-12-22 05:52] LABS: Albumin 3.2 g/dL (3.4-5.0); Albumin/Globulin Ratio 0.9 (1.1-1.8); Anion Gap 10.1 mEq/L (5.0-15.0); Bilirubin Total 0.3 mg/dL (0.2-1.0); Globulin 3.5 g/dL (2.3-3.5); Potassium 4.1 mEq/L (3.5-5.1); Protein, Total 6.7 g/dL (6.4-8.2)
[2024-12-22 07:15] LABS: Differential Total Cells Count 100; Lymphocytes 5 % (15-42); Monocytes 1 % (0-10); Platelet Estimate ADEQ; Segmented Neutrophils 94 % (40-80)
[2024-12-22 07:16] LABS: Blood Morphology Comment NOT SEEN (NOT SEEN)
[2024-12-22] MEDS ORDERED: MIRTAZAPINE 15 MG TAB PO SCH ×2 (09:00→21:00)
[2024-12-22] MEDS ORDERED: MEPERIDINE HCL 50 MG PO SCH (09:00)
[2024-12-22] MEDS: ENOXAPARIN 40 MG/0.4 ML SQ SCH (09:38)
[2024-12-22] MEDS: PANTOPRAZOLE 40MG TABLET PO SCH ×2 (09:38→15:47)
[2024-12-22] MEDS: SUCRALFATE 1GM/10ML UCUP PO SCH (09:38)
[2024-12-22] MEDS: MEMANTINE HCL 10 MG TABLET PO SCH (09:38)
[2024-12-22] MEDS: CEFTRIAXONE 1,000 MG in NA CHLORIDE 0.9% 50 ML IVPB SCH (09:40)
[2024-12-22 11:07] LABS: Specific Gravity 1.007 (1.005-1.030); Sqamous Epithelial <5 /HPF (None Seen); Urine Bacteria <20 /HPF (<20); Urine Bilirubin NEGATIVE (Negative); Urine Blood 1+ (Negative); Urine Clarity Clear (Clear); Urine Color Colorless (Yellow); Urine Culture Reflex Order NOT NEEDED; Urine Glucose 2+ (Negative); Urine Ketones NEGATIVE (Negative); Urine Microscopic Reflex YN ORDER UMIC; Urine Mucus Slight /HPF (None Seen); Urine Nitrite NEGATIVE (Negative); Urine Protein NEGATIVE (Negative); Urine RBC <5 /HPF (None Seen); Urine Urobilinogen Normal (Normal); Urine WBC <5 /HPF (<5); Urine pH 5.5 (5.0-7.0)
--- NOTE | 2024-12-22 11:42 | P.PN ---
Subjective Date of Service: 12/22/24 Chief Complaint: SOB Subjective: No chest pain or shortness of breath. Complaining of nausea and gastroesophageal reflux. No abdominal pain. No obvious bleeding. Looks comfortable in the bed. Objective: General appearance: Alert and comfortable CVS: Normal S1 and S2 Lungs: Clear to auscultation bilaterally Abdomen: Soft, bowel sounds present, no tenderness Extremities: No lower extremity edema Physical Examination - Vital Signs Temperature: 97.8 F Blood Pressure: 114/55 Pulse: 80 Respirations: 16 Pulse Ox (%): 96 - Studies Laboratory Data (last 24 hrs) 12/21/24 12/21/24 12/21/24 16:45 16:45 16:45 WBC 6.10 Hgb 13.3 Hct 39.0 Plt Count 270 PT 11.2 INR 0.98 Sodium 139 Potassium 3.5 BUN 11 Creatinine 1.01 Glucose 104 Magnesium 2.2 Total Bilirubin 0.3 AST 12 L ALT < 14 Alkaline Phosphatase 88 Lipase 50 Assessment And Plan - Plan 1. Nausea, gastroesophageal reflux: Increase PPI, continue sucralfate, will give her a dose of MiraLAX. 2. COPD, no exacerbation PRN bronchodilators PRN Oxygen supplementation DC Steroids Chest x-ray neg 3. Hypertension Probably related to hospitalization BP better 4. Dementia: Supportive care. 5. URI: Symptomatic treatment for now. Plan discussed with the patient, answered all questions.
[2024-12-22] MEDS: MAGNES/ALUMIN/SIMET 30ML UCUP PO ONE (12:18)
[2024-12-22] MEDS ORDERED: ALBUTEROL 2.5 MG/3 ML NEB SOL NEB SCH (13:00)
[2024-12-22] MEDS ORDERED: IPRATROPIUM BROM 0.5MG/2.5ML NEB SCH (13:00)
[2024-12-22] MEDS ORDERED: TRAMADOL HCL 50 MG TAB PO PRN (13:09)
[2024-12-22 16:08] VITALS: BP 127/59; TEMP 97.8
--- NOTE | 2024-12-22 16:55 | P.DS ---
Admission Date: 12/21/24 Discharge Date: 12/22/24 Disposition: DC HOME/HOME HEALTH CARE Discharge Condition: GOOD Reason for Admission: SOB Hospital Course: 1. Nausea, gastroesophageal reflux: Increased PPI, continue sucralfate, given her a dose of Maalox, feels better. 2. COPD, no exacerbation PRN bronchodilators Chest x-ray neg 3. Hypertension Probably related to hospitalization BP better 4. Dementia: Supportive care. 5. URI: Symptomatic treatment for now. Hospital course: 84-year-old patient admitted with possible COPD flare, when I see the patient today her main issue was nausea and gastric esophageal reflux, no shortness of breath, steroids were discontinued, I increased the dose of PPI, given her dose of Maalox, she felt better by this afternoon, she wanted to go home, I discussed with patient and nursing staff at bedside again this afternoon, she does not have any symptoms at this time and she wanted to go home, otherwise no other acute issues going on so I am planning to discharge her to go home and follow-up with PCP. Vital Signs/Physical Exam: Temp Pulse Resp BP Pulse Ox 97.8 F 67 16 127/59 L 98 12/22/24 16:00 12/22/24 16:00 12/22/24 16:00 12/22/24 16:00 12/22/24 16:00 Laboratory Data at Discharge: WBC 7.30 thou/uL (4.3-10.9) 12/22/24 05:02 Hgb 11.8 g/dL (12.0-15.0) L D 12/22/24 05:02 Hct 34.1 % (36.0-45.0) L 12/22/24 05:02 Plt Count 247 thou/uL (152-406) 12/22/24 05:02 PT 11.2 SECONDS (10-13.0) 12/21/24 16:45 INR 0.98 12/21/24 16:45 Sodium 136 mEq/L (136-145) 12/22/24 05:02 Potassium 4.1 mEq/L (3.5-5.1) D 12/22/24 05:02 BUN 13 mg/dL (7-18) 12/22/24 05:02 Creatinine 1.17 mg/dL (0.55-1.02) H 12/22/24 05:02 Glucose 213 mg/dL (74-106) H 12/22/24 05:02 Magnesium 2.2 mg/dL (1.6-2.4) 12/21/24 16:45 Total Bilirubin 0.3 mg/dL (0.2-1.0) 12/22/24 05:02 AST 14 U/L (15-37) L 12/22/24 05:02 ALT 16 U/L (13-56) 12/22/24 05:02 Alkaline Phosphatase 79 U/L (45-117) 12/22/24 05:02 Lipase 50 U/L (13-75) 12/21/24 16:45 Home Medications: Donepezil [Aricept*] 5 mg PO BEDTIME 09/20/24 Memantine HCl 5 mg PO DAILY 09/20/24 Meperidine HCl 50 mg PO BID 09/20/24 Mirtazapine 15 mg PO DAILY 09/20/24 Promethazine HCl 12.5 mg PO PRN PRN 09/20/24 Promethazine Suppos [Phenergan -Suppos*] 12.5 mg RC PRN 09/20/24 Tramadol HCl [Ultram] 50 mg PO BEDTIME PRN 09/20/24 Lidocaine 4% Patch [Lidoderm 5% Patch*] 1 patch TOP DAILY PRN 12 Days #12 pat 09/24/24 Pantoprazole Sodium [Protonix] 40 mg PO BID 40 Days #30 tab 12/22/24 Sucralfate [Carafate*] 10 ml PO QID 10 Days #1 bottle 12/22/24 New Medications: Sucralfate [Carafate*] 10 ml PO QID 10 Days #1 bottle Pantoprazole Sodium [Protonix] 40 mg PO BID 40 Days #30 tab Followup: NONE,NONE [Primary Care Provider] - 1 Week (f/u with PCP in 1 week with CBC and CMP)
[2024-12-22] MEDS ORDERED: DONEPEZIL HCL 5 MG TAB PO SCH (21:00)
[2024-12-23] MEDS ORDERED: ENOXAPARIN 30 MG/0.3 ML SQ SCH (09:00)
--- NOTE | 2024-12-24 12:47 | EKG ---
Test Date: 2024-12-21 Test Time: 16:56:42 Cnc Specialist: AM MEASUREMENT RESULTS: Intervals: Rate: 66 NE: 140 QRSD: 68 QT: 408 QTc: 427 [place]: P: 72 NE: 140 QRS: 53 T: 72 INTERPRETIVE STATEMENTS: Normal sinus rhythm Nonspecific T wave abnormality Abnormal ECG Compared to ECG 09/20/2024 14:01:15 T-wave abnormality now present ST (T wave) deviation no longer present Electronically Signed On 12-24-24 12:40:37 CDT by Regis Guevara
== END 2024-12-22 17:59 | disposition home health service (06) | DRG 392 ==
LOC: ER 15:53 → ERHOLD 19:46 → 2ND 21:08
PROVIDERS: ADMIT Family Medicine; ATTEND Hospitalist
DX: K21.9 Gastro-esophageal reflux disease without esophagitis (principal); F02.84 Dementia in other diseases classified elsewhere, unspecified severity, with anxiety; G30.9 Alzheimer's disease, unspecified; I10 Essential (primary) hypertension; E78.5 Hyperlipidemia, unspecified; J44.9 Chronic obstructive pulmonary disease, unspecified; Z88.5 Allergy status to narcotic agent; Z11.52 Encounter for screening for COVID-19; Z90.13 Acquired absence of bilateral breasts and nipples; Z90.49 Acquired absence of other specified parts of digestive tract; Z87.891 Personal history of nicotine dependence
CPT/HCPCS: 36415; 71045; 80048; 80053; 80076; 81001; 83690; 83735; 83880; 84484; 85025; 85610; 87040; 87428; 93005; 99285; G0378; J0696; J1200; J1650; J2003; J2270; J2405; J2919; J3010; J7613; J7614; J7644; Q0169

== ENCOUNTER 2024-12-26 21:22 | Inpatient (IN) | payer OTHER, BC ==
--- OUTSIDE RECORDS SUMMARY | 2024-12-26 21:25 | XMS REPORT | Continuity of Care Document ---
Author Name Unknown Address [address] [facility] [place] [address] [facility] [place] Address [address] [facility] [place] [address] Care Team Providers Care Frame Carver Spindle Name Role Phone PCP, PATIENT DOES NOT HAVE A Primary Care Physic padminiSirisha Mcfarland MD Attending Clinician [phone] SIRISHA ROSARIO Attending Clinician Unavail able [email or web address]_S Attending Clinician UnavailNIECY Barber Attending Clinician Unavailab Niecy Collazo DO Attending Clinician RADIOLOGY Attending Clinician Unavailable Radiology Attending Clinician Unavailable MIKHAIL HURTADO Attending Clinician Unavailab le ROBERTO_[email or web address]_S Admitting Clinician UnavailNIECY Barber Admitting Clinician Unavailab MEKA Ricks Admitting Clinician Unavailable MIKHAIL HURTADO Admitting Clinician Unavailab le Payers Payer Name Policy Type Policy Number Effective Date Expirati on Date Source [employer] MEDICARE OON Medicare [id number] 00:00:00 FOR LIFE Other [id number] 2021 00:00:00 BCBS ESSENTIALS COMM [id number] 2017 00:00:00 MEDICARE PART A \T\ B [id number] 2004 00:00:00 BCBS TRADITIONAL [id number] 2017 00:00:00 Problems Condition Name Condition Details [...] s disease Alzheimer' s disease Disease Active 2-05 00:00: 00 Layton Villaseñor Colitis Colitis Disease Active 10-08 00:00: 00 Layton Villaseñor Chronic obstructiv e pulmonary disease Chronic obstructiv e pulmonary disease Disease Active 10-08 00:00: 00 Layton Villaseñor No known active problems No known active problems Disease Univers [facility] Acute pancreatit is Acute pancreatit is Disease [...] DRUG INGREDI Active N/V 09-18 00:00: 00 General acute hospital Codeine Propensi ty to adverse reaction s Active Nausea and/or Vomiting 09-18 00:00: 00 General acute hospital Acetamin ophen Propensi ty to adverse reaction s Active GI intolerance 10-08 00:00: 00 Layton Villaseñor Codeine Allergy to substanc e Active Nausea And Vomiting, GI intolerance 2019-0 2-05 00:00: 00 Layton roldan [facility] NO KNOWN ALLERGIE S Drug Class Active General acute hospital Social History Social Habit Start Date Stop Date Quantity Comments Source Gender identity 2023-11-25 02:02:51 Identifies as female gender (finding) [facility] ASSERTION Possible [facility] History of tobacco use Passive smoker [facility] Sexual orientation [facility] Alcoholic beverage intake 2024-12-16 00:00:00 2024-12-16 00:00:00 Lifetime non-drinker (finding) [facility] History of Social function 2024-12-16 00:00:00 2024-12-16 00:00:00 [facility] Tobacco use and exposure 2024-09-17 00:00:00 2024-09-17 00:00:00 Smokeless tobacco non-user [facility] Exposure to SARS-CoV-2 (event) 2022-09-08 00:00:00 2022-09-18 09:01:00 Not sure [facility] Sex Assigned At 1940 00:00:00 1940 00:00:00 [facility] Smoking Status Start Date Stop Date Source Tobacco smoking consumption unknown [facility] Ex-smoker 2024-09-17 00:00:00 2024-09-17 00:00:00 [facility] Medications Ordered Medication Name Filled Medication Name Start Date Stop Date Current Medication? Ordering Clinician Indication Dosage Frequency Signature (SIG) Comments Components Source mirtazapine (Remeron) 15 MG tablet mirtazapine (Remeron) 15 MG tablet 12-16 00:00: 00 Yes 15mg Take 1 tablet by mouth at bedtime. [facility] donepezil (Aricept) 5 MG tablet donepezil (Aricept) 5 MG tablet 12-16 00:00: 00 06-14 23:59 :00 No 5mg Take 1 tablet by mouth at bedtime. [facility] memantine (Namenda) 5 MG tablet memantine (Namenda) 5 MG tablet 12-16 00:00: 00 06-14 23:59 :00 No 5mg Q.5D Take 1 tablet by mouth in the morning and 1 tablet in the evening. [facility] diphenhydrA MINE HCl, Sleep, (ZZZQUIL PO) diphenhydrA MINE HCl, Sleep, (ZZZQUIL PO) 09-17 09:49: 46 Yes Take by mouth. [facility] [place] [facility] memantine (Namenda) 5 MG tablet memantine (Namenda) 5 MG tablet 09-17 00:00: 00 12-16 00:00 :00 No 5mg Q.5D Take 1 tablet by mouth in the morning and 1 tablet in the evening. [facility] [place] [facility] donepezil (Aricept) 5 MG tablet donepezil (Aricept) 5 MG tablet 09-17 00:00: 00 12-16 00:00 :00 No 5mg Take 1 tablet by mouth at bedtime. [facility] [place] [facility] mirtazapine (Remeron) 15 MG tablet mirtazapine (Remeron) 15 MG tablet 09-17 00:00: 00 12-16 00:00 :00 No 15mg Take 1 tablet by mouth at bedtime. [facility] meperidine (Demerol) 50 MG tablet meperidine (Demerol) 50 MG tablet 2023-09 2-20 00:00: 00 Yes 50mg 50 mg. TAKE ONE AND ONE-HALF (1 AND 1/2) TABLET(S) BY MOUTH ONCE A DAY NEEDED. [facility] mirtazapine (Remeron) 15 MG tablet mirtazapine (Remeron) 15 MG tablet 8-16 00:00: 00 09-17 00:00 :00 No 15mg TAKE ONE (1) TABLET(S) BY MOUTH DAILY AT BEDTIME. [facility] donepezil (Aricept) 5 MG tablet donepezil (Aricept) 5 MG tablet 2022-09 1-06 00:00: 00 09-17 00:00 :00 No See Instructio ns, TAKE ONE (1) TABLET(S) BY MOUTH DAILY., # 30 ea, 3 Refill(s), Pharmacy: [id number], 162.56, cm, 06/14/23 9:48:00 CDT, Height, 61.023, kg, 06/14/23 9:48:00 CDT, Weight Layton Villaseñor memantine (Namenda) 5 MG tablet memantine (Namenda) 5 MG tablet 2022-09 1-06 00:00: 00 09-17 00:00 :00 No See Instructio ns, TAKE ONE (1) TABLET(S) BY MOUTH TWICE A DAY., # 60 ea, 3 Refill(s), Pharmacy: [id number], 162.56, cm, 06/14/23 9:48:00 CDT, Height, 61.023, kg, 06/14/23 9:48:00 CDT, Weight Layton Villaseñor omeprazole (PriLOSEC) [address] capsule omeprazole (PriLOSEC) [address] capsule 02-08 00:00: 00 Yes TAKE ONE (1) CAPSULE(S) BY MOUTH DAILY NEEDED. Darlinval Villaseñor No known medications 09-18 09:05: 08 No No known medication s General acute hospital gadoteridol (PROHANCE-1 5 mL) injection 0.2 mL/kg 2019-09 21:45: 00 08-12 22:15 :00 No .2mL/kg 0.2 mL/kg, Intravenou s, ONCE, 1 dose, Leni 08/12/20 at 1545, Routine General acute hospital Vital Signs Vital Name Observation Time Observation Value Comments S humberto Systolic blood pressure 2024-12-16 09:27:00 152 mm[Hg] [facility] Diastolic blood pressure 2024-12-16 09:27:00 92 mm[Hg] [facility] Heart rate 2024-12-16 09:27:00 66 /min Darlinor ial [facility] Body temperature 2024-12-16 09:27:00 36.67 Keesha [facility] Respiratory rate 2024-12-16 09:27:00 16 /min [facility] Body height 2024-12-16 09:27:00 161.3 cm Miguel A riajamar [facility] Body weight 2024-12-16 09:27:00 55.067 kg Miguel A [facility] [place] [facility] BMI 2024-12-16 09:27:00 21.17 kg/m2 Miguel A [facility] [place] [facility] Oxygen saturation in Arterial blood by Pulse oximetry 2024-12-16 09:27:00 97 /min [facility] Systolic blood pressure 2024-12-16 09:27:00 152 mm[Hg] [facility] Diastolic blood pressure 2024-12-16 09:27:00 92 mm[Hg] [facility] Epic Heart rate 2024-12-16 09:27:00 66 /min [facility] Body temperature 2024-12-16 09:27:00 36.67 Keesha [facility] Respiratory rate 2024-12-16 09:27:00 16 /min [facility] Body height 2024-12-16 09:27:00 161.3 cm Miguel A sukhwinderl [facility] Body weight 2024-12-16 09:27:00 55.067 kg Miguel A sukhwinderl [facility] BMI 2024-12-16 09:27:00 21.17 kg/m2 Miguel A rial [place] [facility] Oxygen saturation in Arterial blood by Pulse oximetry 2024-12-16 09:27:00 97 /min [facility] Her [facility] Systolic blood pressure 2024-09-17 10:05:00 142 mm[Hg] [facility] Her [facility] Diastolic blood pressure 2024-09-17 10:05:00 82 mm[Hg] [facility] Heart rate 2024-09-17 10:05:00 83 /min [facility] Body temperature 2024-09-17 10:05:00 36.28 Keesha [facility] Respiratory rate 2024-09-17 10:05:00 16 /min [facility] Body height 2024-09-17 10:05:00 162.6 cm Miguel A rial [place] [facility] Body weight 2024-09-17 10:05:00 51.256 kg Miguel A rial [place] [facility] BMI 2024-09-17 10:05:00 19.40 kg/m2 Miguel A rial [place] [facility] Oxygen saturation in Arterial blood by Pulse oximetry 2024-09-17 10:05:00 97 /min [facility] Systolic blood pressure 2024-09-17 10:05:00 142 mm[Hg] Adeel [facility] Diastolic blood pressure 2024-09-17 10:05:00 82 mm[Hg] Adeel [facility] Heart rate 2024-09-17 10:05:00 83 /min Jolene [facility] Body temperature 2024-09-17 10:05:00 36.28 Keesha [facility] Respiratory rate 2024-09-17 10:05:00 16 /min Adeel [facility] Body height 2024-09-17 10:05:00 162.6 cm Miguel A [facility] Body weight 2024-09-17 10:05:00 51.256 kg Miguel A Garcia [facility] BMI 2024-09-17 10:05:00 19.40 kg/m2 Miguel A Garcia [facility] Oxygen saturation in Arterial blood by Pulse oximetry 2024-09-17 10:05:00 97 /min Adeel [facility] Heart rate 2022-09-18 16:44:00 62 /min [facility] Respiratory rate 2022-09-18 16:44:00 20 /min [facility] Oxygen saturation in Arterial blood by Pulse oximetry 2022-09-18 16:44:00 99 /min [facility] Systolic blood pressure 2022-09-18 16:00:18 153 mm[Hg] [facility] Diastolic blood pressure 2022-09-18 16:00:18 86 mm[Hg] [facility] Body temperature 2022-09-18 15:03:00 36.89 Keesha [facility] Body height 2022-09-18 15:03:[address] [facility] Body weight 2022-09-18 15:03:[address] [facility] BMI 2022-09-18 15:03:00 20.90 kg/m2 [facility] Procedures Procedure Date / Time Performed Performing Clinicia n Source CT TRAUMA HEAD WO CONTRAST 2022-09-18 15:55:32 Niecy Ball [facility] CT TRAUMA CERVICAL SPINE WO CONTRAST 2022-09-18 15:55:32 Niecy Ball [facility] XR SHOULDER <2 VW LEFT 2022-09-18 15:40:40 Ashley Ball [facility] NOTICE OF PRIVACY PRACTICES 2022-09-18 14:59:10 Doctor Unassigned, [place] [facility] CONSENT/REFUSAL FOR DIAGNOSIS AND TREATMENT 2022-09-18 14:58:45 Doctor Unassigned, [place] [facility] MR ABDOMEN W WO CONTRAST MRCP 2020-08-12 22:16:07 Requisition, Paper [facility] NOTICE OF PRIVACY PRACTICES 2020-08-12 21:10:37 Doctor Unassigned, [place] [facility] CONSENT/REFUSAL FOR DIAGNOSIS AND TREATMENT 2020-08-12 21:10:07 Doctor Unassigned, [place] [facility] ASSIGNMENT OF BENEFITS 2020-08-12 21:09:46 Docto r Unassigned, [place] [facility] Encounters Start Date/Time End Date/Time Encounter Type Admission Type Attending [facility] Facility Care Department Encounter ID Source 2024-10-08 09:08:00 Outpatient [facility] [id number] [facility] 2024-12-16 09:30:00 2024-12-16 09:47:39 Office Visit Sirisha Rosario [id number] Layton Villaseñor 2024-12-16 09:04:18 2024-12-16 09:47:39 Outpatient Elective SIRISHA ROSARIO MHEOUT MHEOUT [id number] MHEOUT 2024-10-24 17:18:41 2024-10-24 17:18:41 Outpatient SFA [facility] [id number] Todd [facility] Billy 2024-10-08 14:25:58 2024-10-08 14:25:58 Outpatient [facility] [id number] Todd F Billy 2024-09-17 09:39:26 2024-09-17 10:27:49 Outpatient Elective SIRISHA ROSARIOOUT MHEOUT [id number] MHEOUT 2024-09-17 09:30:00 2024-09-17 10:27:49 Office Visit Sirisha Rosario [id number] Layton [facility] 2024-04-17 00:00:00 2024-04-18 10:18:36 Sirisha Patel [id number] Layton Garcia [facility] 2023-07-03 00:00:00 2023-07-03 00:00:00 Outpatient GC_GCBZW_Ka diyala_S PRIV PRIV [id number] [facility] 2023-07-02 00:00:00 2023-07-02 00:00:00 Outpatient GC_GCBZW_Ka diyala_S PRIV PRIV [id number] [facility] 2022-09-18 09:05:00 2022-09-18 10:46:00 Emergency X NIECY BALL [facility] ERT [id number] General acute hospital 2022-09-18 09:05:00 2022-09-18 10:46:00 Emergency Niecy Ball J [facility] [id number] General acute hospital 2020-08-12 15:11:31 2020-08-12 23:59:00 Outpatient R RADIOLOGY [facility] [id number] General acute hospital 2020-08-12 15:00:00 2020-08-12 23:59:00 Hospital Encounter Radiology [facility] [id number] 2020-08-12 15:00:00 2020-08-12 23:59:00 Hospital Encounter Radiology [facility] [id number] General acute hospital Results Test Description Test Time Test Comments [...] [facility], Bqftt7103-54-83 09:33:00* Test Item Value Reference Range Interpretation [...] assessment and management of chronic kidney failure. [facility] Notes Upcoming Encounters Date/Time Note Provider Source [...] on patient's age to complete this topic [facility] 10:03:52 Diagnosis MCI (mild cognitive impairment) with memory loss - Primary Mild cognitive impairment, so stated [facility]zdvvhl0712-73-87 10:03:52 [facility]zfobyx6785-06-56 10:03:52* [facility] NorthwestMeawtey8903-02-41 10:03:52 [facility]Iqsxpcm0252-34-79 10:03:52* Sirisha Rosario MD - 12/16/2024 9:30 [...] mouth at bedtime. Stable, continue present medications. Adeel GarciaZnyobsn3028-80-69 10:03:51* Adeel GarciaJfizfbs4569-53-47 10:03:51 Adeel Haywood5-04-15 10:03:51* Sirisha Rosario MD - 12/16/2024 9:30 [...] mouth at bedtime. Stable, continue present medications. [facility]2025-04-15 10:03:51Upcoming Encounters Health Maintenance Due Date Last [...] on patient's age to complete this topic [facility] NorthwestWosyfoi5785-11-10 10:03:51 Diagnosis MCI (mild cognitive impairment) with memory loss - Primary Mild cognitive impairment, so stated [facility] NorthwestHjetkqm6217-43-59 10:03:51 [place] 499375-01-15 10:39:27* [facility] NorthwestEvobyvn0942-40-02 10:39:27 [facility] NorthwestFzwqipx5806-93-35 10:39:27* Sirisha Rosario MD - 09/17/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 [facility]2025-01-15 10:39:27Upcoming Encounters Health Maintenance Due Date Last [...] on patient's age to complete this topic [facility] NorthwestMmhkfog3723-29-51 10:39:27 Diagnosis MCI (mild cognitive impairment) with memory loss - Primary Mild cognitive impairment, so stated [facility] NorthwestSqzvcgw8094-57-59 10:39:27 [facility] NorthwestRsleiik6453-16-05 10:18:46 [facility] NorthwestLwapppd6082-01-75 10:18:46* [facility] NorthwestFpxiyjq9897-60-53 10:18:31 Medication filled, please call patient and have them schedule a follow up. [facility]
[2024-12-26] MEDS ORDERED: ONDANSETRON 4 MG/2 ML VIAL ONE (22:19)
[2024-12-26] MEDS ORDERED: NA CHLORIDE 0.9% 1,000 ML ONE (22:19)
--- NOTE | 2024-12-26 22:39 | RAD REPORT ---
EXAMINATION: ONE VIEW CHEST XR CLINICAL INDICATION: Female, 84 years old.,emesis TECHNIQUE: Frontal chest projection is submitted. Examination is limited by patient positioning and t echnique. COMPARISON: No prior exam. FINDINGS: Left chest wall Port-A-Cath unchanged in position. The lungs are well inflated and clear apart from c entral interstitial prominence. No pneumothorax or sizable effusion. The heart is normal in size. Mediastinal contours are unchanged with tortuosity of the thoracic aorta. IMPRESSION: Central interstitial prominence which may relate to mild central congestion/CHF.
[2024-12-26 22:58] LABS: Influenza A Ag Negative; Influenza B Ag Negative; SARS-CoV-2 Antigen Rapid Res Negative (Negative)
[2024-12-27 00:58] LABS: Absolute Lymphocytes (CBC) 1.1 K/uL (0.7-4.9); Absolute Monocytes 0.3 K/uL (0.1-1.3); Absolute Neutrophil 7.3 K/uL (1.8-8.0); Basophils % 0.2 % (0-1.3); Eosinophils % 0.5 % (0-4.4); Hematocrit 41.8 % (36.0-45.0); Hemoglobin 14.3 g/dL (12.0-15.0); MCH 31.5 pg (27.0-35.0); MCHC 34.1 g/dL (32.0-36.0); MCV 92.4 fL (80-100); MPV 7.8 fL (7.6-11.3); Monocytes % 3.8 % (3.3-12.3); Neutrophils % 82.5 % (41.7-73.7); Platelets 285 thou/uL (152-406); RBC Red Blood Cell Count 4.53 M/uL (3.86-4.86); Red Cell Distribution Width 13.2 % (12.1-15.2)
[2024-12-27 01:10] LABS: Albumin 3.2 g/dL (3.4-5.0); Albumin/Globulin Ratio 0.8 (1.1-1.8); Alkaline Phosphatase 91 U/L (45-117); BUN Blood Urea Nitrogen 12 mg/dL (7-18); Bicarbonate 27 mEq/L (21-32); Bilirubin Total 0.6 mg/dL (0.2-1.0); Globulin 4.1 g/dL (2.3-3.5); Glomerular Filtration Rate 58 ml/min (=/>90); Glucose Level 120 mg/dL (74-106); Protein, Total 7.3 g/dL (6.4-8.2); Sodium Level 141 mEq/L (136-145); Troponin High Sensitivity 6.7 pg/mL (<58.9)
[2024-12-27 01:48] LABS: ALT/SGPT < 14 U/L (13-56); AST/SGOT < 10 U/L (15-37)
[2024-12-27 03:19] LABS: Specific Gravity 1.015 (1.005-1.030); Sqamous Epithelial <5 /HPF (None Seen); Urine Bacteria >50 /HPF (<20); Urine Bilirubin NEGATIVE (Negative); Urine Blood 2+ (Negative); Urine Clarity Extremely Turbid (Clear); Urine Color Yellow (Yellow); Urine Culture Reflex Order REFLEXED; Urine Glucose NEGATIVE (Negative); Urine Ketones NEGATIVE (Negative); Urine Microscopic Reflex YN ORDER UMIC; Urine Mucus Slight /HPF (None Seen); Urine Nitrite NEGATIVE (Negative); Urine Protein NEGATIVE (Negative); Urine RBC 21-50 /HPF (None Seen); Urine Urobilinogen Normal (Normal)
[2024-12-27] MEDS ORDERED: CEFTRIAXONE 1000 MG/VIAL ONE (06:03)
[2024-12-27] MEDS ORDERED: NA CHLORIDE 0.9% 50 ML ONE (06:03)
[2024-12-27] MEDS ORDERED: ONDANSETRON 4 MG/2 ML VIAL ONE ×2 (06:15→15:08)
--- NOTE | 2024-12-27 06:22 | RAD REPORT ---
CLINICAL HISTORY: Vomiting, abdominal pain, diarrhea. COMPARISON: CT Abdomen Pelvis 09/20/2024. TECHNIQUE: CT ABDOMEN PELVIS WITH IV CONTRAST on 12/26/2024 9:22 PM CDT This exam was performed according to our departmental dose-optimization program, which includes autom ated exposure control, adjustment of the mA and/or kV according to patient size and/or use of iterative reconstruction technique. FINDINGS: Lower lungs are clear. Abdomen: The liver is normal in appearance. There is no biliary dilatation. Cholecystectomy was perfo rmed. The pancreas and spleen are normal in appearance. The adrenal glands and kidneys are unremarkable. Abdominal aorta is moderately calcified without aneurysm. There is no free air. There is no retroperi toneal adenopathy. Pelvis: There is moderate diverticulosis of the distal colon. Urinary bladder is unremarkable. There is no free fluid. Hysterectomy was performed. Skeleton: There are no acute osseous findings. No suspicious bony lesions. IMPRESSION: No acute process. Electronically signed by: Chet Duque MD 12/27/2024 06:18 AM CDT RP Due to temporary technical issues with the PACS/[employer] reporting system, reports are being [place] d by the in-house radiologist without review as a courtesy to ensure prompt reporting the interpreting radiologist is fully responsible for the content of the report. Transcribed Date/Time: 12/27/2024 6:21 AM
--- NOTE | 2024-12-27 06:30 | ER ---
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 in the last 14 days. Ebola rg5 Screen: Patient negative for fever greater than or equal to 101.5 degrees Fahrenheit, and additional compatible Ebola Virus Disease symptoms Patient denies exposure to infectious person. Patient denies travel to an Ebola-affected area in the 21 days before illness onset. Initial Sepsis Screen: Does the patient meet any 2 criteria? No. Patient's initial sepsis screen is negative. Does the patient have a suspected source of infection? No. Patient's initial sepsis screen is negative. Risk Assessment: Do you want to hurt yourself or someone else? Patient reports no desire to harm self or others. Onset of symptoms. Care prior to arrival: Glucose check: 152. 21:20 Method Of Arrival: EMS: [facility] rg5 21:20 Acuity: JARRETT 3 rg5 Triage Assessment: 21:20 General: Appears uncomfortable, Behavior is calm, cooperative, appropriate for age. rg5 Pain: Complains of pain in abdomen Quality of pain is described as aching. GI: Reports diarrhea, nausea, vomiting. Historical: - Allergies: 21:20 Codeine; rg5 21:20 Tylenol-Codeine; rg5 - PMHx: 21:20 Alzheimers; COPD; HARD OF HEARING; Hernia; Pancreatitis; rg5 - PSHx: 21:20 Adenoid excision; Appendectomy; breast implants; Cholecystectomy; double masectomy; rg5 stomach surgery to prevent vomiting; Tonsillectomy; Total abdominal hysterectomy; - Immunization history:: Adult Immunizations unknown. - Infectious Disease History:: Denies. - Social history:: Smoking status: Patient denies any tobacco usage or history of. Screenin:05 [facility] ED Fall Risk Assessment (Adult) History of falling in the last 3 months, me1 including since admission No falls in past 3 months (0 pts) Confusion or Disorientation No (0 pts) Intoxicated or Sedated No (0 pts) Impaired Gait No (0 pts) Mobility Assist Device Used No (0 pt) Altered Elimination No (0 pt) Score/Fall Risk Level 0 - 2 = Low Risk Maintained a safe environment, Provided non-skid footwear, Hourly rounding (assess needs \T\ fall precautionary measures) done. Abuse screen: Denies threats or abuse. Nutritional screening: No deficits noted. Tuberculosis screening: No symptoms or risk factors identified. 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 Pain: Denies pain. Neuro: Level of Consciousness is awake, alert, obeys commands, Oriented to person, place, time, situation, Appropriate for age. Cardiovascular: Patient's skin is warm and dry. Respiratory: Airway is patent Respiratory effort is even, unlabored, Respiratory pattern is regular, symmetrical. 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 : No signs and/or symptoms were reported regarding the genitourinary system. EENT: No signs and/or symptoms were reported regarding the EENT system. Derm: Skin is intact, is healthy with good turgor, Skin is pink, warm \T\ dry. Musculoskeletal: No signs and/or symptoms reported regarding the musculoskeletal system. 12/27 07:00 General: Appears in no apparent distress. Behavior is cooperative, appropriate for age. ph Pain: Denies pain. Neuro: Level of Consciousness is awake, alert, obeys commands, Oriented to person, place, time, situation. Cardiovascular: Capillary refill < 3 seconds in bilateral fingers Patient's skin is warm and dry. Respiratory: Airway is patent Respiratory effort is even, unlabored. GI: Reports nausea, vomiting, Patient currently denies abdominal pain. Derm: Skin is pink, warm \T\ dry. Vital Signs: 12/26 21:20 Weight 50.8 kg; Height 5 ft. 4 in. ; rg5 21:49 BP 150 / 62; Pulse 73; Resp 16; Temp 97.7(O); Pulse Ox 99% on R/A; Pain 9/10; cm10 22:30 BP 126 / 93; Pulse 67; Resp 15; Pulse Ox 100% ; me1 23:00 BP 122 / 61; Pulse 67; Resp 15; Pulse Ox 95% ; me1 23:45 BP 116 / 60; Pulse 67; Resp 14; Pulse Ox 96% ; me1 12/27 00:00 BP 124 / 48; Pulse 66; Resp 16; Pulse Ox 96% on R/A; dd2 00:40 BP 111 / 55; Pulse 66; Resp 15; Pulse Ox 96% on R/A; dd2 01:40 BP 157 / 72; Pulse 65; Resp 16; Pulse Ox 100% on R/A; dd2 02:45 BP 143 / 63; Pulse 64; Resp 16; Pulse Ox 97% on R/A; dd2 02:45 BP 131 / 65; Pulse 59; Resp 15; Pulse Ox 95% on R/A; dd2 03:15 BP 132 / 68; Pulse 59; Resp 16; Pulse Ox 95% on R/A; dd2 03:40 BP 131 / 71; Pulse 60; Resp 15; Pulse Ox 96% on R/A; dd2 04:10 BP 139 / 69; Pulse 64; Resp 15; Pulse Ox 96% on R/A; dd2 04:45 BP 121 / 71; Pulse 60; Resp 16; Pulse Ox 95% on R/A; dd2 05:30 BP 124 / 65; Pulse 58; Resp 15; Pulse Ox 96% on R/A; dd2 07:25 BP 140 / 72; Pulse 56; Resp 18; Pulse Ox 97% on R/A; ph 12/26 21:20 Body Mass Index 19.22 (50.80 kg, 162.56 cm) rg5 21:49 Pain Scale: Adult cm10 ED Course: 12/26 21:20 Patient arrived in ED. rv1 21:21 Sae Hamilton DO is Attending Physician. ms3 21:33 Triage completed. rg5 21:35 XRAY Chest (1 view) In Process Unspecified. EDMS 21:50 Arm band placed on right wrist. Patient placed in an exam room, on a stretcher. cm10 21:57 Sheridan Keenan, RN is Primary Nurse. me1 22:05 Patient has correct armband on for positive identification. Bed in low position. Call me1 light in reach. Side rails up X2. Provided Education on: POC. Verbalized understanding.. Client placed on continuous cardiac and pulse oximetry monitoring. NIBP monitoring applied. clinical research monitor on. Pulse ox on. NIBP on. 22:05 No provider procedures requiring assistance completed. me1 22:24 Troponin HS Sent. me1 22:24 CBC with Diff Sent. me1 22:24 CMP Sent. me1 22:30 EKG done, by ED staff, reviewed by Sae Hamilton DO. me1 12/27 02:08 CT Abd/Pelvis - IV Contrast Only In Process Unspecified. EDMS 06:26 Inserted saline lock: 24 gauge in right antecubital area, using aseptic technique. dd2 Flushed with 10 mL NS. 06:28 Guera Bonner MD is Hospitalizing Provider. ms3 08:58 Lipid Profile Sent. ph 08:58 Lipase Sent. ph Administered Medications: 12/26 22:29 Drug: Ondansetron IVP 4 mg IVP once; over 2 minutes Route: IVP; Site: right wrist; me1 23:05 Follow up: Response: No adverse reaction; Nausea is decreased me1 22:29 Drug: NS 0.9% IV 1000 ml IV at 1 bolus Per protocol; to be given as a bolus over 60 me1 minutes Route: IV; Rate: 1 bolus; Site: right wrist; 12/27 00:05 Follow up: IV Status: Completed infusion dd2 06:26 Drug: Rocephin IV 1 grams IV at calculated rate once; Given slow IV push per pharmacy dd2 instructions Route: IV; Rate: calculated rate; Site: right antecubital; 06:41 Follow up: Response: No adverse reaction dd2 06:53 Follow up: IV Status: Completed infusion; IV Intake: 50ml dd2 06:26 Drug: Ondansetron IVP 4 mg IVP once; over 2 minutes Route: IVP; Site: right antecubital;dd2 06:41 Follow up: Response: No adverse reaction dd2 Medication: 12/26 22:05 VIS not applicable for this client. me1 Intake: 12/27 06:53 IV: 50ml; Total: 50ml. dd2 Outcome: 06:29 Decision to Hospitalize by Provider. ms3 17:21 Patient left the ED. aa5 Signatures: Dispatcher [employer] Elena Taylor, RN RN aa5 Annie Baltazar, RN RN ph Hamilton, Sae, DO ROQUE ms3 Jessee, Edna rv1 Kate Vargas, RN RN cm10 Sheridan Keenan, RN RN me1 Jaylon Knight, RN RN rg5 DARIUS, ARTURO, RN RN dd2
--- NOTE | 2024-12-27 06:30 | EDPHYS ---
Physician Documentation [facility] Name: Milan Weir Age: 84 yrs Sex: Female : 1940 Arrival Date: 12/26/2024 Time: 21:20 Bed 13 Private MD: ED Physician Sae Hamilton HPI: 12/26 21:23 This 84 yrs old Female presents to ER via Unassigned with complaints of nausea, ms3 vomiting, diarrhea. 21:23 84-year-old female presents to the emergency department via [facility] for ms3 nausea, vomiting, diarrhea that has been ongoing for several hours. Patient denies pain. Patient denies any alleviating or inciting factors. EMS notes patient had full emesis bag on their arrival.. Historical: - Allergies: 21:20 Codeine; rg5 21:20 Tylenol-Codeine; rg5 - PMHx: 21:20 Alzheimers; COPD; HARD OF HEARING; Hernia; Pancreatitis; rg5 - PSHx: 21:20 Adenoid excision; Appendectomy; breast implants; Cholecystectomy; double masectomy; rg5 stomach surgery to prevent vomiting; Tonsillectomy; Total abdominal hysterectomy; - Immunization history:: Adult Immunizations unknown. - Infectious Disease History:: Denies. - Social history:: Smoking status: Patient denies any tobacco usage or history of. ROS: 21:23 Constitutional: Negative for fever, and chills. Cardiovascular: Negative for chest ms3 pain, and palpitations. Respiratory: Negative for shortness of breath, cough, wheezing, and pleuritic chest pain, 21:23 MS/Extremity: Negative for injury and deformity, Skin: Negative for injury, rash, and discoloration, 21:23 Abdomen/GI: Positive for nausea, vomiting, and diarrhea, Exam: 21:23 Constitutional: This is a well developed, well nourished patient who is awake, alert, ms3 and in no acute distress. Cardiovascular: Regular rate and rhythm with a normal S1 and S2. No gallops, murmurs, or rubs. Normal PMI, no JVD. No pulse deficits. Respiratory: Lungs have equal breath sounds bilaterally, clear to auscultation and percussion. No rales, rhonchi or wheezes noted. No increased work of breathing, no retractions or nasal flaring. 21:23 Skin: Warm, dry with normal turgor. Normal color with no rashes, no lesions, and no evidence of cellulitis. 21:23 Abdomen/GI: Inspection: abdomen appears normal, Bowel sounds: normal, Palpation: moderate abdominal tenderness, in the left upper quadrant, 22:37 ECG was reviewed by the Attending Physician. ms3 Vital Signs: 21:20 Weight 50.8 kg; Height 5 ft. 4 in. ; rg5 21:49 BP 150 / 62; Pulse 73; Resp 16; Temp 97.7(O); Pulse Ox 99% on R/A; Pain 9/10; cm10 22:30 BP 126 / 93; Pulse 67; Resp 15; Pulse Ox 100% ; me1 23:00 BP 122 / 61; Pulse 67; Resp 15; Pulse Ox 95% ; me1 23:45 BP 116 / 60; Pulse 67; Resp 14; Pulse Ox 96% ; me1 12/27 00:00 BP 124 / 48; Pulse 66; Resp 16; Pulse Ox 96% on R/A; dd2 00:40 BP 111 / 55; Pulse 66; Resp 15; Pulse Ox 96% on R/A; dd2 01:40 BP 157 / 72; Pulse 65; Resp 16; Pulse Ox 100% on R/A; dd2 02:45 BP 143 / 63; Pulse 64; Resp 16; Pulse Ox 97% on R/A; dd2 02:45 BP 131 / 65; Pulse 59; Resp 15; Pulse Ox 95% on R/A; dd2 03:15 BP 132 / 68; Pulse 59; Resp 16; Pulse Ox 95% on R/A; dd2 03:40 BP 131 / 71; Pulse 60; Resp 15; Pulse Ox 96% on R/A; dd2 04:10 BP 139 / 69; Pulse 64; Resp 15; Pulse Ox 96% on R/A; dd2 04:45 BP 121 / 71; Pulse 60; Resp 16; Pulse Ox 95% on R/A; dd2 05:30 BP 124 / 65; Pulse 58; Resp 15; Pulse Ox 96% on R/A; dd2 07:25 BP 140 / 72; Pulse 56; Resp 18; Pulse Ox 97% on R/A; ph 12/26 21:20 Body Mass Index 19.22 (50.80 kg, 162.56 cm) rg5 21:49 Pain Scale: Adult cm10 MDM: 12/26 21:21 Medical Screening Exam initiated ms3 21:23 Differential diagnosis: Nonspecific abd pain, gastritis, viral gastroenteritis, ms3 gastroenteritis. 12/27 06:27 Data reviewed: vital signs, nurses notes, lab test result(s), radiologic studies, and ms3 as a result, I will admit patient. Consideration of Admission/Observation Patient was admitted/placed on observation. Management of patient was discussed with the following: Hospitalist: GAVINO Julian. I considered the following discharge prescriptions or medication management in the emergency department Medications were administered in the Emergency Department. See MAR. Counseling: I had a detailed discussion with the patient and/or guardian regarding the historical points, exam findings, and any diagnostic results supporting the discharge/admit diagnosis, lab results, radiology results, the need for further work-up and treatment in the hospital. Response to treatment: There is no appreciated change of the patient's symptoms at this time, and as a result, I will admit patient. ED course: . 12/26 21:22 Order name: CBC with Diff; Complete Time: 01:38 ms3 12/26 21:22 Order name: CMP; Complete Time: 02:33 ms3 12/26 21:22 Order name: Urinalysis w/ reflexes; Complete Time: 05:55 ms3 12/26 21:22 Order name: Troponin HS; Complete Time: 02:33 ms3 12/26 21:22 Order name: COVID-19 Ag + Flu A+B Ag; Complete Time: 23:08 ms3 12/27 03:23 Order name: Urine Culture [facility] 12/27 08:35 Order name: Lipase 12/27 08:35 Order name: Lipid Profile 12/26 21:22 Order name: CT Abd/Pelvis - IV Contrast Only; Complete Time: 06:43 ms3 12/26 21:22 Order name: XRAY Chest (1 view); Complete Time: 23:08 ms3 12/26 21:22 Order name: EKG; Complete Time: 21:23 ms3 12/26 21:22 Order name: IV Saline Lock; Complete Time: 22:24 ms3 12/26 21:22 Order name: Labs collected and sent; Complete Time: 22:24 ms3 12/26 21:22 Order name: Cardiac monitoring; Complete Time: 22:29 ms3 12/26 21:22 Order name: EKG - Nurse/Tech; Complete Time: ms3 12/27 00:25 Order name: Misc. Order: RECOLLECT ALL LABS; Complete Time: 00:40 rv1 EC/25 22:37 Rate is 65 beats/min. Rhythm is regular. QRS [place] is Normal. [place] interval is normal. QRS ms3 interval is normal. Clinical impression: NSR w/ Non-specific ST/T Changes. Interpreted by me. Reviewed by me. Administered Medications: 22: Drug: Ondansetron IVP 4 mg IVP once; over 2 minutes Route: IVP; Site: right wrist; me1 23:05 Follow up: Response: No adverse reaction; Nausea is decreased me1 22:29 Drug: NS 0.9% IV 1000 ml IV at 1 bolus Per protocol; to be given as a bolus over 60 me1 minutes Route: IV; Rate: 1 bolus; Site: right wrist; 12/27 00:05 Follow up: IV Status: Completed infusion dd2 06:26 Drug: Rocephin IV 1 grams IV at calculated rate once; Given slow IV push per pharmacy dd2 instructions Route: IV; Rate: calculated rate; Site: right antecubital; 06:41 Follow up: Response: No adverse reaction dd2 06:53 Follow up: IV Status: Completed infusion; IV Intake: 50ml dd2 06:26 Drug: Ondansetron IVP 4 mg IVP once; over 2 minutes Route: IVP; Site: right antecubital;dd2 06:41 Follow up: Response: No adverse reaction dd2 Disposition Summary: 12/27/24 06:29 Hospitalization Ordered Notes: Hospitalization Status: Observation ms3 Provider: Guera Bonner ms3 Condition: Stable ms3 Problem: new ms3 Symptoms: are unchanged ms3 Bed/Room Type: Standard ms3 Location: Telemetry/MedSurg (observation)(12/27/24 16:17) Room Assignment: [facility](12/27/24 16:17) Diagnosis - Vomiting ms3 - Diarrhea, unspecified ms3 - UTI/ Urinary tract infection, site not specified ms3 Forms: - Medication Reconciliation Form ms3 - SBAR form ms3 - Leadership Thank You Letter ms3 Signatures: Dispatcher [employer] EDMS Dolores Hidalgo, RN RN ss Marsha Villa Marcus, DO DO ms3 HooksEdna guzman rv1 Sheridan Keenan, RN RN me1 Jaylon Knight, RN RN rg5 ARTURO MCCOY RN RN dd2 Corrections: (The following items were deleted from the chart) 12/26 21:22 21:22 CBC+H.LAB.BRZ ordered. EDMS EDMS 21:22 21:22 COMPREHENSIVE METABOLIC PANEL+C.LAB.BRZ ordered. EDMS EDMS 21:22 21:22 Urinalysis+U.LAB.BRZ ordered. EDMS EDMS 21:22 21:22 Abdomen Pelvis W Con+CT.RAD.BRZ ordered. EDMS EDMS 12/27 08:35 08:35 LIPASE+C.LAB.BRZ ordered. EDMS EDMS 08:35 08:35 LIPID PROFILE+C.LAB.BRZ ordered. EDMS EDMS 11:20 06:29 Telemetry/MedSurg (observation) ms3 ss 11:20 06:29 ms3 ss 14:04 11:20 ss eb 16:17 11:20 [facility] ER HOLD ss ss 16:17 14:04 ERHOLD- eb ss
[2024-12-27] MEDS ORDERED: MORPHINE 2 MG/ML SYR IV PRN (10:11)
[2024-12-27] MEDS ORDERED: ACETAMINOPHEN 500 MG TAB PO PRN (10:11)
[2024-12-27] MEDS ORDERED: SODIUM CHLORIDE 0.9% 10ML INJ IV PRN (10:19)
[2024-12-27] MEDS ORDERED: ALBUTEROL 2.5 MG/3 ML NEB SOL NEB PRN (10:19)
[2024-12-27] MEDS: NA CHLORIDE 0.9% 1,000 ML IV SCH (11:00)
--- NOTE | 2024-12-27 11:15 | P.HP ---
Certification for Inpatient Patient admitted to: Observation <Patrick Calvin - Last Filed: 12/27/24 11:32> Patient History Date of Service: 12/27/24 Reason for admission: Nausea and vomiting History of Present Illness: Patient is an 84-year-old female with past medical history of Alzheimer's, COPD, hard of hearing, hernia, pancreatitis, patient reports to ER complaining of nausea and vomiting nonbilious and nonbloody content, and diarrhea. Patient states her symptoms started yesterday and progressively worsened today prompting her to report to ER today. Patient denies of any associated chest pain, shortness of breath, chills or fever. Patient currently has a left shift, positive UTI, CT abdomen impression no acute process. - Past Medical/Surgical History Diabetic: No -: COPD -: Alzheimer's disease -: pancreatitis -: liver cirrhosis -: kidney disease -: bladder -: tonsilectomy -: appendectomy -: double mastectomy with reconstruction -: cholecystectomy -: gall bladder removed 2002 -: abdominal surgery Psychosocial/ Personal History: Lives at home with her daughter - Family History Mother Notes: ALZHEIMERS Brother -: GI disease Notes: internal bleeding - Social History Alcohol use: No CD- Drugs: No Caffeine use: Yes <Patrick Calvin - Last Filed: 12/27/24 11:32> Date of Service: 12/27/24 <Guera Bonner - Last Filed: 12/27/24 17:43> Allergies codeine Allergy (Verified 10/27/24 12:59) Nausea/Vomiting acetaminophen [From Tylenol] Adverse Reaction (Verified 10/27/24 12:59) Nausea/Vomiting morphine Adverse Reaction (Verified 12/21/24 22:18) Nausea/Vomiting Home Medications: Donepezil [Aricept*] 5 mg PO BEDTIME 09/20/24 Memantine HCl 5 mg PO DAILY 09/20/24 Meperidine HCl 50 mg PO BID 09/20/24 Mirtazapine 15 mg PO DAILY 09/20/24 Promethazine HCl 12.5 mg PO PRN PRN 09/20/24 Promethazine Suppos [Phenergan -Suppos*] 12.5 mg RC PRN 09/20/24 Tramadol HCl [Ultram] 50 mg PO BEDTIME PRN 09/20/24 Lidocaine 4% Patch [Lidoderm 5% Patch*] 1 patch TOP DAILY PRN 12 Days #12 pat 09/24/24 Pantoprazole Sodium [Protonix] 40 mg PO BID 40 Days #30 tab 12/22/24 Sucralfate [Carafate*] 10 ml PO QID 10 Days #1 bottle 12/22/24 Ciprofloxacin HCl [Cipro] 250 mg PO BID #10 tab 12/27/24 Ondansetron [Zofran] 4 mg PO Q6H PRN 3 Days #15 tab 12/27/24 Review of Systems 10-point ROS is otherwise unremarkable <Patrick Calvin - Last Filed: 12/27/24 11:32> Physical Examination - Physical Exam General: Oriented x2 HEENT: Atraumatic, Normocephalic, PERRLA Neck: Supple, JVD not distended, No Thyromegaly Respiratory: Clear to auscultation bilaterally, Normal air movement Cardiovascular: Regular rate/rhythm, Normal S1 S2, No gallops, No rubs, No murmurs Capillary refill: <2 Seconds Gastrointestinal: Normal bowel sounds, Soft and benign, Non-distended Musculoskeletal: No clubbing, No swelling, No tenderness Integumentary: Rash(es) Neurological: Normal speech, Dementia Urinary: Other (Incontinent of urine) External genitalia: No edema, No lesions - Studies Laboratory Data (last 24 hrs) 12/27/24 12/27/24 12/27/24 08:55 00:37 00:37 WBC 8.80 Hgb 14.3 Hct 41.8 Plt Count 285 Sodium 141 Potassium 4.0 BUN 12 Creatinine 0.96 Glucose 120 H Total Bilirubin 0.6 AST < 10 L ALT < 14 Alkaline Phosphatase 91 Triglycerides 144 Cholesterol 173 HDL Cholesterol 52 Cholesterol/HDL Ratio 3.33 Lipase 26 <Patrick Calvin - Last Filed: 12/27/24 11:32> - Studies Laboratory Data (last 24 hrs) 12/27/24 12/27/24 12/27/24 08:55 00:37 00:37 WBC 8.80 Hgb 14.3 Hct 41.8 Plt Count 285 Sodium 141 Potassium 4.0 BUN 12 Creatinine 0.96 Glucose 120 H Total Bilirubin 0.6 AST < 10 L ALT < 14 Alkaline Phosphatase 91 Triglycerides 144 Cholesterol 173 HDL Cholesterol 52 Cholesterol/HDL Ratio 3.33 Lipase 26 <Guera Bonner - Last Filed: 12/27/24 17:43> Female Exam - Breasts Breasts: Normal configuration - Female Pelvic Vagina: Normal Cervix: Non-tender Adnexa: Non-tender <Patrick Calvin - Last Filed: 12/27/24 11:32> Assessment and Plan - Problems (Diagnosis) (1) Acute cystitis with hematuria Current Visit: Yes Status: Acute (2) Nausea and vomiting Current Visit: No Status: Acute Qualifiers: Vomiting type: bilious vomiting Qualified Code(s): R11.14 - Bilious vomiting (3) COPD (chronic obstructive pulmonary disease) Current Visit: Yes Status: Acute Qualifiers: COPD type: unspecified COPD Qualified Code(s): J44.9 - Chronic obstructive pulmonary disease, unspecified (4) Alzheimers disease Current Visit: No Status: Chronic - Plan Assessment and plan. Nausea and vomiting Abdominal pain CT of the abdomen and pelvis Zofran 4 mg IV NS at 75 CT No acute process. Clear liquid diet at advance as tolerated. Acute cystitis with hematuria with hematuria UA 2+ blood, leukoesterase 500, WBC 21-50 Ceftriaxone 1 g daily COPD not in exacerbation O2 2 L As needed nebs Alzheimer's disease Resume home medication Full code DVT prophylaxis Lovenox 40 mg subcu Diet advance as tolerated. Discharge Plan: Home - Advance Directives Does patient have a Living Will: No Does patient have a Durable POA for Healthcare: No - Code Status/Comfort Care Code Status: Full Code Critical Care: No Time Spent Managing Pts Care (In Minutes): 55 <Patrick Calvin - Last Filed: 12/27/24 11:32> - Plan I have personally reviewed and discussed the patient's history, physical exam findings, assessment, and plan as documented by Patrick Calvin NP. I confirmed the accuracy of the information and agree with the management of the plan as outlined <Guera Bonner - Last Filed: 12/27/24 17:43>
[2024-12-27] MEDS ORDERED: NA CHLORIDE 0.9% 1,000 ML ONE (11:51)
[2024-12-27] MEDS ORDERED: MORPHINE 2 MG/ML SYR ONE (15:08)
[2024-12-27] MEDS: ONDANSETRON 4 MG/2 ML VIAL IV PRN (15:32)
--- NOTE | 2024-12-27 16:13 | P.DS ---
Admission Date: 12/28/24 Discharge Date: 12/29/24 Disposition: ROUTINE DISCHARGE Discharge Condition: GOOD Reason for Admission: Nausea and vomiting Brief History of Present Illness: Patient is an 84-year-old female with past medical history of Alzheimer's, COPD, hard of hearing, hernia, pancreatitis, patient reports to ER complaining of nausea and vomiting nonbilious and nonbloody content, and diarrhea. Patient states her symptoms started yesterday and progressively worsened today prompting her to report to ER today. Patient denies of any associated chest pain, shortness of breath, chills or fever. Patient currently has a left shift, positive UTI, CT abdomen impression no acute process. - Physical Exam General: Oriented x2 HEENT: Atraumatic, Normocephalic, PERRLA Neck: Supple, JVD not distended, No Thyromegaly Respiratory: Clear to auscultation bilaterally, Normal air movement Cardiovascular: Regular rate/rhythm, Normal S1 S2, No gallops, No rubs, No murmurs Capillary refill: <2 Seconds Gastrointestinal: Normal bowel sounds, Soft and benign, Non-distended Musculoskeletal: No clubbing, No swelling, No tenderness Integumentary: Rash(es) Neurological: Normal speech, Dementia Urinary: Other (Incontinent of urine) External genitalia: No edema, No lesions Hospital Course: Patient is an 84-year-old female with past medical history of Alzheimer's, COPD, hard of hearing, hernia, pancreatitis, patient reports to ER complaining of nausea and vomiting nonbilious and nonbloody content, and diarrhea. Patient states her symptoms started yesterday and progressively worsened today prompting her to report to ER today. Patient denies of any associated chest pain, shortness of breath, chills or fever. Patient currently has a left shift, positive UTI, CT abdomen impression no acute process patient was admitted for UTI, treated with IV fluids, tolerating diet, stable to discharge home, follow- up with PCP in 1 week Assessment Acute cystitis with hematuria-treated with IV antibiotics, plan to discharge home on p.o. antibiotics Nausea vomiting improved with IV fluids, IV antiemetics, plan to discharge home on p.o. Zofran History of COPD stable, resume home meds after discharge History of Finley's disease, supportive care, plan to discharge home with family Abdominal pain CT of the abdomen and pelvis unremarkable Zofran 4 mg discharged home with Zofran p.o. Clear liquid diet at advance as tolerated. UA 2+ blood, leukoesterase 500, WBC 21-50 INSTRUCTIONS: Physician Discharge Instructions: -Follow-up with PCP in 1 to 2 weeks -Please call if any questions regarding hospital stay -Please call nursing station at [phone] if any nursing or medication quest ions -Return to the emergency room if symptoms worsen Diet: ADA, low sodium Activity: Fall precautions Vital Signs/Physical Exam: Temp Pulse Resp BP Pulse Ox 97.8 F 61 H 132/72 98 12/27/24 12:00 12/27/24 12:00 12/27/24 12:00 12/27/24 12:00 Laboratory Data at Discharge: WBC 8.80 thou/uL (4.3-10.9) 12/27/24 00:37 Hgb 14.3 g/dL (12.0-15.0) 12/27/24 00:37 Hct 41.8 % (36.0-45.0) 12/27/24 00:37 Plt Count 285 thou/uL (152-406) 12/27/24 00:37 Sodium 141 mEq/L (136-145) 12/27/24 00:37 Potassium 4.0 mEq/L (3.5-5.1) 12/27/24 00:37 BUN 12 mg/dL (7-18) 12/27/24 00:37 Creatinine 0.96 mg/dL (0.55-1.02) 12/27/24 00:37 Glucose 120 mg/dL (74-106) H 12/27/24 00:37 Total Bilirubin 0.6 mg/dL (0.2-1.0) 12/27/24 00:37 AST < 10 U/L (15-37) L 12/27/24 00:37 ALT < 14 U/L (13-56) 12/27/24 00:37 Alkaline Phosphatase 91 U/L (45-117) 12/27/24 00:37 Triglycerides 144 mg/dL (<150) 12/27/24 08:55 Cholesterol 173 mg/dL (<200) 12/27/24 08:55 HDL Cholesterol 52 mg/dL (40-60) 12/27/24 08:55 Cholesterol/HDL Ratio 3.33 12/27/24 08:55 Lipase 26 U/L (13-75) 12/27/24 08:55 Home Medications: Donepezil [Aricept*] 5 mg PO BEDTIME 09/20/24 Memantine HCl 5 mg PO DAILY 09/20/24 Meperidine HCl 50 mg PO BID 09/20/24 Mirtazapine 15 mg PO DAILY 09/20/24 Promethazine HCl 12.5 mg PO PRN PRN 09/20/24 Promethazine Suppos [Phenergan -Suppos*] 12.5 mg RC PRN 09/20/24 Tramadol HCl [Ultram] 50 mg PO BEDTIME PRN 09/20/24 Lidocaine 4% Patch [Lidoderm 5% Patch*] 1 patch TOP DAILY PRN 12 Days #12 pat 09/24/24 Pantoprazole Sodium [Protonix] 40 mg PO BID 40 Days #30 tab 12/22/24 Sucralfate [Carafate*] 10 ml PO QID 10 Days #1 bottle 12/22/24 Ciprofloxacin HCl [Cipro] 250 mg PO BID #10 tab 12/27/24 Ondansetron [Zofran] 4 mg PO Q6H PRN 3 Days #15 tab 12/27/24 New Medications: Ciprofloxacin HCl [Cipro] 250 mg PO BID #10 tab Ondansetron [Zofran] 4 mg PO Q6H PRN 3 Days #15 tab PRN Reason: Nausea / Vomiting Physician Discharge Instructions: Patient is an 84-year-old female with past medical history of Alzheimer's, COPD, hard of hearing, hernia, pancreatitis, patient reports to ER complaining of nausea and vomiting nonbilious and nonbloody content, and diarrhea. Patient states her symptoms started yesterday and progressively worsened today prompting her to report to ER today. Patient denies of any associated chest pain, shortness of breath, chills or fever. Patient currently has a left shift, positive UTI, CT abdomen impression no acute process patient was admitted for UTI, treated with IV fluids, tolerating diet, stable to discharge home, follow- up with PCP in 1 week Assessment Acute cystitis with hematuria-treated with IV antibiotics, plan to discharge home on p.o. antibiotics Nausea vomiting improved with IV fluids, IV antiemetics, plan to discharge home on p.o. Zofran History of COPD stable, resume home meds after discharge History of Finley's disease, supportive care, plan to discharge home with family Abdominal pain CT of the abdomen and pelvis unremarkable Zofran 4 mg discharged home with Zofran p.o. Clear liquid diet at advance as tolerated. UA 2+ blood, leukoesterase 500, WBC 21-50 INSTRUCTIONS: Physician Discharge Instructions: -Follow-up with PCP in 1 to 2 weeks -Please call if any questions regarding hospital stay -Please call nursing station at [phone] if any nursing or medication questions -Return to the emergency room if symptoms worsen Diet: ADA, low sodium Diet: ADA Followup: NONE,NONE [Primary Care Provider] - Time spent managing pt's care (in minutes): 45
[2024-12-27] MEDS ORDERED: PROMETHAZINE 25 MG TABLET PO PRN (17:41)
[2024-12-27] MEDS: LIDOCAINE 4% PATCH TOP PRN (18:05)
[2024-12-27] MEDS: PIPER TAZO 3.375 GM in NA CHLORIDE 0.9% 100 ML IV SCH (18:42)
[2024-12-27] MEDS: DONEPEZIL HCL 5 MG TAB PO SCH (20:14)
[2024-12-27] MEDS: SUCRALFATE 1GM/10ML UCUP PO SCH (20:14)
[2024-12-27] MEDS: TRAMADOL HCL 50 MG TAB PO PRN (20:14)
[2024-12-27] MEDS: HYDRALAZINE HCL 20 MG/ML VIAL IV PRN (20:15)
[2024-12-27] MEDS ORDERED: PROMETHAZINE 12.5 MG/SUPP PR ONE (23:10)
[2024-12-27] MEDS: PROMETHAZINE 12.5 MG/SUPP PR PRN (23:28)
[2024-12-28] MEDS: HYDROMORPHONE HCL 1 MG/ML INJ IV ONE (00:36)
[2024-12-28] MEDS ORDERED: PROMETHAZINE 12.5 MG/SUPP PR ONE (06:46)
[2024-12-28 07:55] LABS: Absolute Lymphocytes (CBC) 0.8 K/uL (0.7-4.9); Absolute Monocytes 0.6 K/uL (0.1-1.3); Absolute Neutrophil 12.3 K/uL (1.8-8.0); Basophils % 0.2 % (0-1.3); Eosinophils % 0.1 % (0-4.4); Hematocrit 43.1 % (36.0-45.0); Hemoglobin 14.7 g/dL (12.0-15.0); Lymphocytes % 5.5 % (15.3-44.8); MCH 31.5 pg (27.0-35.0); MCHC 34.1 g/dL (32.0-36.0); MCV 92.3 fL (80-100); MPV 7.8 fL (7.6-11.3); Monocytes % 4.6 % (3.3-12.3); Neutrophils % 89.6 % (41.7-73.7); Platelets 268 thou/uL (152-406); RBC Red Blood Cell Count 4.67 M/uL (3.86-4.86); Red Cell Distribution Width 13.3 % (12.1-15.2)
[2024-12-28 08:26] LABS: Anion Gap 10.3 mEq/L (5.0-15.0); Magnesium 2.1 mg/dL (1.6-2.4); Potassium 3.3 mEq/L (3.5-5.1)
[2024-12-28] MEDS ORDERED: CEFTRIAXONE 1,000 MG in NA CHLORIDE 0.9% 50 ML IVPB SCH (09:00)
[2024-12-28] MEDS: MEMANTINE HCL 10 MG TABLET PO SCH (09:00)
[2024-12-28] MEDS: ENOXAPARIN 40 MG/0.4 ML SQ SCH (09:28)
[2024-12-28] MEDS: PANTOPRAZOLE 40 MG INJ IVP SCH (09:41)
[2024-12-28] MEDS: PROMETHAZINE INJ 25 MG/ML AMP IV PRN (09:59)
[2024-12-28 14:55] VITALS: O2SAT 98
--- NOTE | 2024-12-28 16:31 | P.PN ---
Date of Service: 12/28/24 Subjective: Still having episodes of vomiting. States she feels weak. Blood pressure improving. Discussed trying to gather some energy and do some walking Review of Systems As per HPI 10-point ROS is otherwise unremarkable Physical Examination - Physical Exam General: Oriented x2 HEENT: Atraumatic, Normocephalic, PERRLA Neck: Supple, JVD not distended, No Thyromegaly Respiratory: Clear to auscultation bilaterally, Normal air movement Cardiovascular: Regular rate/rhythm, Normal S1 S2, No gallops, No rubs, No murmurs Capillary refill: <2 Seconds Gastrointestinal: Normal bowel sounds, Soft and benign, Non-distended Musculoskeletal: No clubbing, No swelling, No tenderness Integumentary: Rash(es) Neurological: Normal speech, Dementia Urinary: Other (Incontinent of urine) External genitalia: No edema, No lesions - Studies Laboratory Data (last 24 hrs) 12/27/24 12/27/24 12/27/24 08:55 00:37 00:37 WBC 8.80 Hgb 14.3 Hct 41.8 Plt Count 285 Sodium 141 Potassium 4.0 BUN 12 Creatinine 0.96 Glucose 120 H Total Bilirubin 0.6 AST < 10 L ALT < 14 Alkaline Phosphatase 91 Triglycerides 144 Cholesterol 173 HDL Cholesterol 52 Cholesterol/HDL Ratio 3.33 Lipase 26 - Studies Laboratory Data (last 24 hrs) 12/27/24 12/27/24 12/27/24 08:55 00:37 00:37 WBC 8.80 Hgb 14.3 Hct 41.8 Plt Count 285 Sodium 141 Potassium 4.0 BUN 12 Creatinine 0.96 Glucose 120 H Total Bilirubin 0.6 AST < 10 L ALT < 14 Alkaline Phosphatase 91 Triglycerides 144 Cholesterol 173 HDL Cholesterol 52 Cholesterol/HDL Ratio 3.33 Lipase 26 Assessment and Plan - Problems (Diagnosis) (1) Acute cystitis with hematuria Current Visit: Yes Status: Acute (2) Nausea and vomiting Current Visit: No Status: Acute Qualifiers: Vomiting type: bilious vomiting Qualified Code(s): R11.14 - Bilious vomiting (3) COPD (chronic obstructive pulmonary disease) Current Visit: Yes Status: Acute Qualifiers: COPD type: unspecified COPD Qualified Code(s): J44.9 - Chronic obstructive pulmonary disease, unspecified (4) Alzheimers disease Current Visit: No Status: Chronic - Plan Assessment and plan. Nausea and vomiting Unclear why there was a rise in her WBC count CT of the abdomen and pelvis reviewed and no acute process On Zosyn and IV fluid Zofran 4 mg and add promethazine Obtain lactic acid, procalcitonin, CRP Obtain stool culture, ova and parasite, calprotectin Clear liquid diet at advance as tolerated. Acute cystitis with hematuria with hematuria Leukocytosis UA 2+ blood, leukoesterase 500, WBC 21-50 Received dose of Rocephin in the ER WBC count increased, obtain procalcitonin and CRP, follow culture COPD not in exacerbation O2 2 L As needed nebs Alzheimer's disease Resume home medication Hypokalemia Replace potassium Full code DVT prophylaxis Lovenox 40 mg subcu Diet advance as tolerated. Discharge Plan: Home - Advance Directives Does patient have a Living Will: No Does patient have a Durable POA for Healthcare: No - Code Status/Comfort Care Code Status: Full Code
[2024-12-28] MEDS: TRAMADOL HCL 50 MG TAB PO PRN (16:53)
[2024-12-28 18:58] VITALS: BMI 19.0
[2024-12-28] MEDS: Mupirocin NASAL 2 APPL/1 GM TUBE NAS SCH (20:09)
[2024-12-28] MEDS: POTASSIUM 25 MEQ EFFERV TAB PO ONE (20:09)
[2024-12-28] MEDS: HYDRALAZINE HCL 20 MG/ML VIAL IV ONE (22:01)
[2024-12-28] MEDS ORDERED: NA CHLORIDE 0.9% 1,000 ML ONE (23:39)
[2024-12-29 06:48] LABS: C-Reactive Protein 7.96 mg/L (<3.00)
[2024-12-29] MEDS: POTASSIUM 25 MEQ EFFERV TAB PO ONE (08:30)
--- NOTE | 2024-12-29 12:14 | EKG ---
Test Date: 2024-12-26 Test Time: 22:32:18 Beam Warper: MEASUREMENT RESULTS: Intervals: Rate: 65 [place]: 150 QRSD: 64 QT: 432 QTc: 449 [place]: P: 80 [place]: 150 QRS: 69 T: 83 INTERPRETIVE STATEMENTS: Sinus rhythm with fusion complexes Otherwise normal ECG Compared to ECG 12/21/2024 16:56:42 Fusion complex(es) now present T-wave abnormality no longer present Electronically Signed On 12-29-24 12:09:01 CDT by Regis Guevara
--- NOTE | 2024-12-29 12:35 | P.PN ---
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 Subjective: No chest pain or shortness of breath. No nausea or vomiting. No abdominal pain. No obvious bleeding. Looks comfortable in the bed. Feels ready to go home. Objective: General appearance: Alert and comfortable CVS: Normal S1 and S2 Lungs: Clear to auscultation bilaterally Abdomen: Soft, bowel sounds present, no tenderness Extremities: No lower extremity edema 84-year-old patient with nausea and vomiting, CT abdomen negative, symptoms improved. UTI, final urine culture pending, prelim culture growing strep, currently on IV Zosyn, DC home on Augmentin.
[2024-12-29 12:49] VITALS: BP 164/79; TEMP 98.3
== END 2024-12-29 13:20 | disposition home or self-care (01) | DRG 690 ==
LOC: ER 21:22 → ERHOLD 12-27 10:07 → 2ND 12-27 17:07 → OBSVTOIN 12-28 17:15
PROVIDERS: ADMIT Family Medicine; ATTEND Hospitalist
PROC: 02HV33Z Insertion of Infusion Device into Superior Vena Cava, Percutaneous Approach (ICD-10-PCS; principal; 2024-12-29)
PROC: 5A09357 Assistance with Respiratory Ventilation, Less than 24 Consecutive Hours, Continuous Positive Airway Pressure (ICD-10-PCS; 2024-12-29)
DX: N30.01 Acute cystitis with hematuria (principal); E87.6 Hypokalemia; J44.9 Chronic obstructive pulmonary disease, unspecified; G30.9 Alzheimer's disease, unspecified; F02.80 Dementia in other diseases classified elsewhere, unspecified severity, without behavioral disturbance, psychotic disturbance, mood disturbance, and anxiety; Z88.5 Allergy status to narcotic agent; Z11.52 Encounter for screening for COVID-19; Z90.13 Acquired absence of bilateral breasts and nipples; Z90.49 Acquired absence of other specified parts of digestive tract; Z90.710 Acquired absence of both cervix and uterus
CPT/HCPCS: 36415; 71045; 74177; 80048; 80053; 80061; 81001; 83605; 83690; 83735; 83880; 84145; 84484; 85025; 86140; 87077; 87086; 87088; 87186; 87428; 93005; 99285; G0378; J0360; J0696; J1171; J1650; J2003; J2270; J2405; J2470; J2543; J2550; J7030; Q9967

== ENCOUNTER 2025-04-30 11:48 | Emergency (ER) | payer OTHER, BC ==
--- OUTSIDE RECORDS SUMMARY | 2025-04-30 12:02 | XMS REPORT | Continuity of Care Document ---
Author Name Unknown Address [address] [facility] [place] [address] [facility] [place] Address [address] [facility] [address] [place] [address] Care Team Providers Care Medical Doctor Md/Medical Director Name Role Phone PCP, PATIENT DOES NOT HAVE A Primary Care Physic padmini Unavailable Sirisha Rosario MD Attending Clinician SIRISHA ROSARIO Attending Clinician Unavail able NIECY BALL Attending Clinician Unavailab Niecy Gallardo DO Attending Clinician RADIOLOGY Attending Clinician Unavailable Radiology Attending Clinician Unavailable MIKHAIL HURTADO Attending Clinician Unavailab NIECY Gallardo Admitting Clinician Unavailab MEKA Ricks Admitting Clinician Unavailable MIKHAIL HRUTADO Admitting Clinician Unavailab isl Payers Payer Name Policy Type Policy Number Effective Date Expirati on Date Source [employer] MEDICARE OON Medicare [id number] 00:00:00 FOR LIFE Other [id number] 2021 00:00:00 BCBS ESSENTIALS COMM [id number] 2017 00:00:00 MEDICARE PART A \\T\\ B [id number] 2004 00:00:00 BCBS TRADITIONAL [id number] 2017 00:00:00 Problems Condition Name Condition Details Condition Category Status Onset Date Resolution Date Last Treatment Date Treating Clinician Comments Source 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 04-14 00:00: 00 Layton Villaseñor Cholelithi asis Cholelithi asis Disease Active 12 00:00: 00 Layton Villaseñor Degenerati on of cervical interverte bral disc Degenerati on of cervical interverte bral disc Disease Active 8 00:00: 00 Layton Villaseñor Acute diverticul itis of intestine Acute diverticul itis of intestine Disease Active 15 00:00: 00 Layton Villaseñor Chronic kidney disease [...] Disease Active 09-17 00:00: 00 Layton Villaseñor Neuropathi c pain Neuropathi c pain Disease Active 01-01 00:00: 00 Layton Villaseñor Bilateral sciatica Bilateral sciatica Disease Active 4-29 00:00: 00 Layton Villaseñor Pain of right hip joint Pain of right hip joint Disease Active 1-12 00:00: 00 Layton Villaseñor Effusion of left knee Effusion of left knee Disease Active 2020-09 1-17 00:00: 00 Layton Villaseñor Pain in right knee Pain in right knee Disease Active 2020-09 0- 00:00: 00 Layton Villaseñor Thoracic spondylosi s Thoracic spondylosi s Disease Active 2020-09 0-28 00:00: 00 Layton Villaseñor Cervical radiculopa thy Cervical radiculopa thy Disease Active 4-15 00:00: 00 Layton Villaseñor Cervico-oc cipital neuralgia Cervico-oc cipital neuralgia Disease Active 415 00:00: 00 Layton Villaseñor Chronic pain Chronic pain Disease Active 15 00:00: 00 Layton Villaseñor Cervical spondylosi s without myelopathy Cervical spondylosi s without myelopathy Disease Active 15 00:00: 00 Layton Villaseñor Degenerati on of lumbar interverte bral disc Degenerati on of lumbar interverte bral disc Disease Active 12-16 00:00: 00 Layton Villaseñor Thoracic back pain Thoracic back pain Disease Active 15 00:00: 00 Layton Villaseñor Chronic kidney disease, stage II (mild) Chronic kidney disease, stage II (mild) Disease Active 05-24 00:00: 00 Layton Villaseñor 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 Disease Active 05-24 00:00: 00 Layton Villaseñor Alzheimer' s disease Alzheimer' s disease Disease Active 2- 00:00: 00 Layton Villaseñor Colitis Colitis Disease Active 2-05 00:00: 00 Layton Villaseñor Chronic obstructiv e pulmonary disease Chronic obstructiv e pulmonary disease Disease Active 2-05 00:00: 00 Layton Villaseñor No known active problems No known active problems Disease [facility] Acid reflux Acid reflux Disease Resolve d 2021-09 0-14 00:00: 00 2025-04-14 00:00:00 2025-04-14 09:47:13 Layton Villaseñor Nausea Nausea Disease Resolve d 4-15 00:00: 00 2025-04-14 00:00:00 2025-04-14 09:47:13 Layton Villaseñor Acute pancreatit is Acute pancreatit is Disease Resolve d 1-15 00:00: 00 2024-09-17 00:00:00 2024-09-17 10:06:57 Layton Villaseñor Chronic cough Chronic cough Disease Resolve d - 00:00: 00 2024-09-17 00:00:00 2024-09-17 10:06:57 Layton Villaseñor Elevated LFTs Elevated LFTs Disease Resolve d - 00:00: 00 2024-09-17 00:00:00 2024-09-17 10:06:57 Layton Villaseñor Lactic acidosis Lactic acidosis Disease Resolve d -15 00:00: 00 2024-09-17 00:00:00 2024-09-17 10:06:57 Layton Villaseñor Lip swelling Lip swelling Disease Resolve d -15 00:00: 00 2024-09-17 00:00:00 2024-09-17 10:06:57 Layton Villaseñor Vomiting Vomiting Disease Resolve d - 00:00: 00 2024-09-17 00:00:00 2024-09-17 10:06:57 Layton Villaseñor Allergies, Adverse Reactions, Alerts Allergy Name Allergy Type Status Severity Reaction(s) Onset Date Inactive Date Treating Clinician Comments Source Morphine Propensi ty to adverse reaction s Active GI intolerance 20 00:00: 00 Layton Villaseñor CODEINE DRUG INGREDI Active N/V -16 00:00: 00 [facility] Codeine Propensi ty to adverse reaction s Active Nausea and/or Vomiting - 00:00: 00 [facility] Acetamin ophen Propensi ty to adverse reaction s Active GI intolerance 10-08 00:00: 00 Other Reaction( s): Not available Layton roldan Jose [facility] Codeine Allergy to substanc e Active GI intolerance, Nausea And Vomiting 10-08 00:00: 00 Other Reaction( s): Not available Layton Garcia [facility] NO KNOWN ALLERGIE S Drug Class Active [facility] Social History Social Habit Start Date Stop Date Quantity Comments Source Gender identity 2023-11-25 02:02:51 Identifies as female gender (finding) [facility] ASSERTION Possible [facility] History of tobacco use Passive smoker [facility] Sexual orientation [facility] Alcoholic beverage intake 2025-04-14 00:00:00 2025-04-14 00:00:00 Lifetime non-drinker (finding) [facility] History of Social function 2025-04-14 00:00:00 2025-04-14 00:00:00 [facility] Tobacco use and exposure 2024-09-17 00:00:00 2024-09-17 00:00:00 Smokeless tobacco non-user [facility] Sex 2023-11-25 02:02:51 2023-11-25 02:02:51 Female (finding) [facility] Exposure to SARS-CoV-2 (event) 2022-09-08 00:00:00 2022-09-18 09:01:00 Not sure [facility] Sex Assigned At 1940 00:00:00 1940 00:00:00 [facility] Smoking Status Start Date Stop Date Source Tobacco smoking consumption unknown [facility] Ex-smoker 2024-09-17 00:00:00 2024-09-17 00:00:00 [facility] Medications Ordered Medication Name Filled Medication Name Start Date Stop Date Current Medication? Ordering Clinician Indication Dosage Frequency Signature (SIG) Comments Components Source mirtazapine (Remeron) 15 MG tablet mirtazapine (Remeron) 15 MG tablet 12-16 00:00: 00 Yes 15mg Take 1 tablet by mouth at bedtime. Layton Garcia [facility] donepezil (Aricept) 5 MG tablet donepezil (Aricept) 5 MG tablet 4-15 00:00: 00 06-14 23:59 :00 No 5mg Take 1 tablet by mouth at bedtime. Layton Garcia [facility] memantine (Namenda) 5 MG tablet memantine (Namenda) 5 MG tablet 4-15 00:00: 00 06-14 23:59 :00 No 5mg Q.5D Take 1 tablet by mouth in the morning and 1 tablet in the evening. Layton Garcia [facility] diphenhydrA MINE HCl, Sleep, (ZZZQUIL PO) diphenhydrA MINE HCl, Sleep, (ZZZQUIL PO) 1-15 09:49: 46 Yes Take by mouth. Layton Garcia [facility] memantine (Namenda) 5 MG tablet memantine (Namenda) 5 MG tablet 1-15 00:00: 00 12-16 00:00 :00 No 5mg Q.5D Take 1 tablet by mouth in the morning and 1 tablet in the evening. Layton Garcia [facility] donepezil (Aricept) 5 MG tablet donepezil (Aricept) 5 MG tablet 1-15 00:00: 00 12-16 00:00 :00 No 5mg Take 1 tablet by mouth at bedtime. Layton Garcia [facility] mirtazapine (Remeron) 15 MG tablet mirtazapine (Remeron) 15 MG tablet 1-15 00:00: 00 12-16 00:00 :00 No 15mg Take 1 tablet by mouth at bedtime. Layton Garcia [facility] meperidine (Demerol) 50 MG tablet meperidine (Demerol) 50 MG tablet 2023-09 2-20 00:00: 00 Yes 50mg 50 mg. TAKE ONE AND ONE-HALF (1 AND 1/2) TABLET(S) BY MOUTH ONCE A DAY NEEDED. Layton Garcia [facility] mirtazapine (Remeron) 15 MG tablet mirtazapine (Remeron) 15 MG tablet 8-16 00:00: 00 09-17 00:00 :00 No 15mg TAKE ONE (1) TABLET(S) BY MOUTH DAILY AT BEDTIME. Layton Villaseñor donepezil (Aricept) 5 MG tablet donepezil (Aricept) 5 MG tablet 2022-09 00:00: 00 09-17 00:00 :00 No See Instructio ns, TAKE ONE (1) TABLET(S) BY MOUTH DAILY., # 30 ea, 3 Refill(s), Pharmacy: [place] [address], 162.56, cm, 06/14/23 9:48:00 CDT, Height, 61.023, kg, 06/14/23 9:48:00 CDT, Weight Layton Villaseñor memantine (Namenda) 5 MG tablet memantine (Namenda) 5 MG tablet 2022-09 00:00: 00 09-17 00:00 :00 No See Instructio ns, TAKE ONE (1) TABLET(S) BY MOUTH TWICE A DAY., # 60 ea, 3 Refill(s), Pharmacy: [place] [address], 162.56, cm, 06/14/23 9:48:00 CDT, Height, 61.023, kg, 06/14/23 9:48:00 CDT, Weight Layton Villaseñor omeprazole (PriLOSEC) [address] capsule omeprazole (PriLOSEC) [address] capsule 02-08 00:00: 00 Yes TAKE ONE (1) CAPSULE(S) BY MOUTH DAILY NEEDED. Layton Villaseñor No known medications 1 09:05: 08 No No known medication s [facility] gadoteridol (PROHANCE-1 5 mL) injection 0.2 mL/kg 2019-09 2-10 21:45: 00 08-12 22:15 :00 No .2mL/kg 0.2 mL/kg, Intravenou s, ONCE, 1 dose, Leni 08/12/20 at 1545, Routine [facility] Vital Signs Vital Name Observation Time Observation Value Comments Ashley paul Systolic blood pressure 2025-04-14 09:50:00 129 mm[Hg] [facility] Diastolic blood pressure 2025-04-14 09:50:00 83 mm[Hg] [facility] Heart rate 2025-04-14 09:50:00 78 /min [facility] Body temperature 2025-04-14 09:50:[address] [facility] Respiratory rate 2025-04-14 09:50:00 16 /min [facility] Body height 2025-04-14 09:50:00 161.3 cm Miguel A rial [facility] Body weight 2025-04-14 09:50:00 54.432 kg Miguel A rial [facility] BMI 2025-04-14 09:50:00 20.92 kg/m2 Miguel A rial [facility] Oxygen saturation in Arterial blood by Pulse oximetry 2025-04-14 09:50:00 96 /min Adeel Molina [facility] Systolic blood pressure 2025-04-14 09:50:00 129 mm[Hg] [facility] Diastolic blood pressure 2025-04-14 09:50:00 83 mm[Hg] [facility] Heart rate 2025-04-14 09:50:00 78 /min [facility] Body temperature 2025-04-14 09:50:00 36.78 [facility] Respiratory rate 2025-04-14 09:50:00 16 /min [facility] Body height 2025-04-14 09:50:00 161.3 cm Miguel A rial [facility] Body weight 2025-04-14 09:50:00 54.432 kg Miguel A rial [facility] BMI 2025-04-14 09:50:00 20.92 kg/m2 Miguel A rial Jose [facility] Oxygen saturation in Arterial blood by Pulse oximetry 2025-04-14 09:50:00 96 /min [facility] Systolic blood pressure 2024-12-16 09:27:00 152 mm[Hg] [facility] Diastolic blood pressure 2024-12-16 09:27:00 92 mm[Hg] [facility] Heart rate 2024-12-16 09:27:00 66 /min [facility] Body temperature 2024-12-16 09:27:[address] [facility] Respiratory rate 2024-12-16 09:27:00 16 /min [facility] Body height 2024-12-16 09:27:00 161.3 cm Miguel A rial Jose [facility] Body weight 2024-12-16 09:27:00 55.067 kg Miguel A rial [place] [facility] BMI 2024-12-16 09:27:00 21.17 kg/m2 Miguel A rial Jose [facility] Oxygen saturation in Arterial blood by Pulse oximetry 2024-12-16 09:27:00 97 /min [facility] Systolic blood pressure 2024-12-16 09:27:00 152 mm[Hg] [facility] Diastolic blood pressure 2024-12-16 09:27:00 92 mm[Hg] [facility] Heart rate 2024-12-16 09:27:00 66 /min [facility] [place] [facility] Body temperature 2024-12-16 09:27:00 36.67 Keesha [facility] Respiratory rate 2024-12-16 09:27:00 16 /min [facility] Body height 2024-12-16 09:27:00 161.3 cm Miguel A rial [facility] Body weight 2024-12-16 09:27:00 55.067 kg Miguel A rial [place] [facility] BMI 2024-12-16 09:27:00 21.17 kg/m2 Miguel A rial [place] [facility] Oxygen saturation in Arterial blood by Pulse oximetry 2024-12-16 09:27:00 97 /min [facility] Systolic blood pressure 2024-09-17 10:05:00 142 mm[Hg] [facility] Diastolic blood pressure 2024-09-17 10:05:00 82 mm[Hg] [facility] Heart rate 2024-09-17 10:05:00 83 /min [facility] ial [facility] Body temperature 2024-09-17 10:05:00 36.28 Keesha [facility] Respiratory rate 2024-09-17 10:05:00 16 /min [facility] Body height 2024-09-17 10:05:00 162.6 cm Miguel A rial [facility] Body weight 2024-09-17 10:05:00 51.256 kg Miguel A rial [place] [facility] BMI 2024-09-17 10:05:00 19.40 kg/m2 Miguel A rial Jose Epic Oxygen saturation in Arterial blood by Pulse oximetry 2024-09-17 10:05:00 97 /min [facility] Epic Systolic blood pressure 2024-09-17 10:05:00 142 mm[Hg] Adeel wasserman Epic Diastolic blood pressure 2024-09-17 10:05:00 82 mm[Hg] Adeel wasserman [facility] Heart rate 2024-09-17 10:05:00 83 /min Jolene Garcia [facility] Body temperature 2024-09-17 10:05:00 36.28 Keesha [facility] [place] [facility] Respiratory rate 2024-09-17 10:05:00 16 /min Adeel Shankarann [facility] Body height 2024-09-17 10:05:00 162.6 cm Miguel A Shankarann [facility] Body weight 2024-09-17 10:05:00 51.256 kg Miguel A Shankarann Epic BMI 2024-09-17 10:05:00 19.40 kg/m2 Miguel A Shankarann [facility] Oxygen saturation in Arterial blood by Pulse oximetry 2024-09-17 10:05:00 97 /min Adeel wasserman [facility] Heart rate 2022-09-18 16:44:00 62 /min [facility] Respiratory rate 2022-09-18 16:44:00 20 /min [facility] Oxygen saturation in Arterial blood by Pulse oximetry 2022-09-18 16:44:00 99 /min [facility] Systolic blood pressure 2022-09-18 16:00:18 153 mm[Hg] [facility] Diastolic blood pressure 2022-09-18 16:00:18 86 mm[Hg] [facility] Body temperature 2022-09-18 15:03:00 36.89 Keesha [facility] Body height 2022-09-18 15:03:00 160 cm [facility] Body weight 2022-09-18 15:03:00 53.524 kg [facility] BMI 2022-09-18 15:03:00 20.90 kg/m2 [facility] Procedures Procedure Date / Time Performed Performing Clinicia n Source CT TRAUMA HEAD WO CONTRAST 2022-09-18 15:55:32 Niecy Ball [facility] CT TRAUMA CERVICAL SPINE WO CONTRAST 2022-09-18 15:55:32 Niecy Ball [facility] XR SHOULDER <2 VW LEFT 2022-09-18 15:40:40 Ashley Ball [facility] NOTICE OF PRIVACY PRACTICES 2022-09-18 14:59:10 Doctor Unassigned, [place] [facility] CONSENT/REFUSAL FOR DIAGNOSIS AND TREATMENT 2022-09-18 14:58:45 Doctor Unassigned, [place] [facility] MR ABDOMEN W WO CONTRAST MRCP 2020-08-12 22:16:07 Requisition, Paper [facility] NOTICE OF PRIVACY PRACTICES 2020-08-12 21:10:37 Doctor Unassigned, [place] [facility] CONSENT/REFUSAL FOR DIAGNOSIS AND TREATMENT 2020-08-12 21:10:07 Doctor Unassigned, [place] [facility] ASSIGNMENT OF BENEFITS 2020-08-12 21:09:46 Docto r Unassigned, [place] [facility] Encounters Start Date/Time End Date/Time Encounter Type Admission Type Attending [facility] Care Department Encounter ID Source 2024-10-08 09:08[facility]00 [id number] [facility] 2025-04-14 09:45:00 2025-04-14 10:06:32 Office Visit Sirisha Rosario [id number]..[id number] Layton Villaseñor 2025-04-14 09:37:52 2025-04-14 10:06:32 Outpatient Elective SIRISHA ROSARIO EOUT MHEOUT [id number] [facility]OUT 2025-03-30 10:22:28 2025-03-30 10:22:28 Outpatient SFA SFA [id number] Todd Newton Billy 2024-12-16 09:30:00 2024-12-16 09:47:39 Office Visit Sirisha Rosario 1..[id number] Layton Garcia [facility] 2024-12-16 09:04:18 2024-12-16 09:47:39 Outpatient Elective SIRISHA ROSARIO MHEOUT MHEOUT [id number] MHEOUT 2024-10-24 17:18:41 2024-10-24 17:18:41 Outpatient SFA [facility] [id number] Todd Cervantes 2024-10-08 14:25:58 2024-10-08 14:25:58 Outpatient SFA [facility] [id number] Todd Cervantes 2024-09-17 09:39:26 2024-09-17 10:27:49 Outpatient Elective SIRISHA ROSARIO MHEOUT MHEOUT [id number] MHEOUT 2024-09-17 09:30:00 2024-09-17 10:27:49 Office Visit Sirisha Rosario Rory [id number] Layton roldan [facility] 2024-04-17 00:00:00 2024-04-18 10:18:36 Refill Sirisha Rosario Meka Valadez [id number] [facility] 2022-09-18 09:05:00 2022-09-18 10:46:00 Emergency X NIECY BALL [facility] ERT [id number] [facility] 2022-09-18 09:05:00 2022-09-18 10:46:00 Emergency Niecy Ball [facility] [id number] [id number] [id number] [facility] 2020-08-12 15:11:31 2020-08-12 23:59:00 Outpatient R RADIOLOGY [facility] [id number] [facility] 2020-08-12 15:00:00 2020-08-12 23:59:00 Hospital Encounter Radiology [facility] [id number] 2020-08-12 15:00:00 2020-08-12 23:59:00 Hospital Encounter Radiology [facility] [id number] [id number] [facility] Results Test Description Test Time Test [...] without and with contrast including MRCP studies. [facility] FlorentinTAMARA, [id number] 09:33:00* Test Item Value Reference Range Interpretation Comme nts Creatinine (test code = CREA) 1.0 mg/dl 0.4-1.2 EGFR if (test code = EGFRAA) >60 mL/min/1.73m\\ S\\2 EGFR if Non- (test code = EGFRNA) 57 mL/min/1.73m\\ S\\2 Estimated Glomerular Filtration Rate (eGFR) Reference Intervals Decision Points for 18 years and older and average body mass: >= 60 Does not exclude kidney disease. 30 - 59 Suggests moderate chronic kidney disease and indicates the need for further investigation including assessment of proteinuria and cardiovascular factors. < 30 Usually indicates a need for referral for assessment and management of chronic kidney failure. [facility] Notes Date/Time Note Provider [id number]:21:56* [facility] [id number] 18:21:56 [place] [id number] 18:21:56* Sirisha Rosario MD - 04/14/2025 9:45 AM CDT History of Present Illness HPI The patient is an 84-year-old female presenting with ongoing issues related to sleep, appetite, and gastrointestinal discomfort. She is accompanied by her son, who provides additional history. The patient reports persistent difficulties with both falling asleep and staying asleep. She mentions wearing diapers at night, which are effective for one use, but does not endorse any other specific interventions for her sleep issues. She describes a significant increase in appetite, stating that she frequently eats whenever she opens the refrigerator. Despite this, her weight remains stable. She also reports gastrointestinal discomfort, describing her stomach as "a mess" and experiencing difficulty swallowing certain foods, leading to a "contest" about whether the food will go down. She does not endorse nausea. She continues to manage her household and work in her yard. She recently changed her primary care provider and is currently without a pain management physician. Her son mentions that her new primary care physician is "really good" and "on the spot" in managing her care. Allergies as of 04/14/2025 - Reviewed 04/14/2025 Allergen Reaction Noted Acetaminophen GI intolerance 10/08/2018 Codeine GI intolerance and Nausea And Vomiting 10/08/2018 Morphine GI intolerance 12/21/2024 has a current medication list which includes the following prescription(s): diphenhydramine hcl (sleep), donepezil, memantine, meperidine, mirtazapine, and omeprazole. Constitutional: (+) insomniaGastrointestinal: (+) abdominal discomfort Vitals:04/14/25 0950 BP: 129/83 Pulse: 78 Resp: 16 Temp: 36.8 ?C (98.2 ?F) SpO2: 96% Neurological Exam Mental Status: Awake, alert, and oriented to person, place, and time. Speech is normal. Language is fluent with no aphasia. Cranial Nerves: CN III, IV, : Extraocular movements intact bilaterally. No nystagmus. CN II-XII are otherwise intact. Motor: Normal muscle bulk throughout. Normal muscle tone. No abnormal involuntary movements. There is no tremor at rest or with action. There is no bradykinesia. There is no apparent weakness or pronator drift. Coordination: Right: [id number] normal. Rapid alternating movement is normal. Left: [id number] normal. Rapid alternating movement is normal. Gait: Casual gait is normal, including stance, stride, and arm swing. Results for orders placed or performed in visit on 02/08/23Complete Blood Count w/Diff and Platelet Collection Time: [...] results found for the past 12 months Your note content is not currently available. Please go to the [employer] and push your notes to view them here. 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 # Insomnia, unspecified type (G47.00)- Ongoing difficulty with sleep onset and maintenance. [facility]2025-08-12 18:21:56Upcoming Encounters Health Maintenance Due Date Last Done Comments Bone Density Scan 1940 Medicare Annual Wellness (AWV) 1940 DTaP/Tdap/Td Vaccines (1 - Tdap) 1958 Pneumococcal Vaccine: 50+ Ye ars (1 of 2 - PCV) 1958 Zoster Vaccines (1 of 2) 1989 Respiratory Syncytial Virus (RSV) Adult Series (1 - 1-dose 75+ series) 2014 Influenza Vaccine (#1) 2025 HIB Vaccines Aged Out No longer [...] on patient's age to complete this topic [facility] [id number] 18:21:56 Diagnosis MCI (mild cognitive impairment) with memory loss - Primary Mild cognitive impairment, so stated Insomnia, unspecified type [facility] [id number] 18:21:56 [facility] [id number] 18:21:56* [facility] [id number] 18:21:56 [facility] [id number] 18:21:56* Sirisha Rosario MD - 04/14/2025 9:45 AM CDT History of Present Illness HPI The patient is an 84-year-old female presenting with ongoing issues related to sleep, appetite, and gastrointestinal discomfort. She is accompanied by her son, who provides additional history. The patient reports persistent difficulties with both falling asleep and staying asleep. She mentions wearing diapers at night, which are effective for one use, but does not endorse any other specific interventions for her sleep issues. She describes a significant increase in appetite, stating that she frequently eats whenever she opens the refrigerator. Despite this, her weight remains stable. She also reports gastrointestinal discomfort, describing her stomach as "a mess" and experiencing difficulty swallowing certain foods, leading to a "contest" about whether the food will go down. She does not endorse nausea. She continues to manage her household and work in her yard. She recently changed her primary care provider and is currently without a pain management physician. Her son mentions that her new primary care physician is "really good" and "on the spot" in managing her care. Allergies as of 04/14/2025 - Reviewed 04/14/2025 Allergen Reaction Noted Acetaminophen GI intolerance 10/08/2018 Codeine GI intolerance and Nausea And Vomiting 10/08/2018 Morphine GI intolerance 12/21/2024 has a current medication list which includes the following prescription(s): diphenhydramine hcl (sleep), donepezil, memantine, meperidine, mirtazapine, and omeprazole. Constitutional: (+) insomniaGastrointestinal: (+) abdominal discomfort Vitals:04/14/25 0950 BP: 129/83 Pulse: 78 Resp: 16 Temp: 36.8 ?C (98.2 ?F) SpO2: 96% Neurological Exam Mental Status: Awake, alert, and oriented to person, place, and time. Speech is normal. Language is fluent with no aphasia. Cranial Nerves: CN III, IV, : Extraocular movements intact bilaterally. No nystagmus. CN II-XII are otherwise intact. Motor: Normal muscle bulk throughout. Normal muscle tone. No abnormal involuntary movements. There is no tremor at rest or with action. There is no bradykinesia. There is no apparent weakness or pronator drift. Coordination: Right: Xfikyb-wu-ifby normal. Rapid alternating movement is normal. Left: Bviaep-ro-ivzr normal. Rapid alternating movement is normal. Gait: Casual gait is normal, including stance, stride, and arm swing. Results for orders placed or performed in visit on 02/08/23Complete Blood Count w/Diff and Platelet Collection Time: [...] results found for the past 12 months Your note content is not currently available. Please go to the [employer] and push your notes to view them here. 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 # Insomnia, unspecified type (G47.00)- Ongoing difficulty with sleep onset and maintenance. [facility]2025-08-12 18:21:56Upcoming Encounters Health Maintenance Due Date Last Done Comments Bone Density Scan 1940 Medicare Annual Wellness (AWV) 1940 DTaP/Tdap/Td Vaccines (1 - Tdap) 1958 Pneumococcal Vaccine: 50+ Ye ars (1 of 2 - PCV) 1958 Zoster Vaccines (1 of 2) 1989 Respiratory Syncytial Virus (RSV) Adult Series (1 - 1-dose 75+ series) 2014 Influenza Vaccine (#1) 2025 HIB Vaccines Aged Out No longer [...] on patient's age to complete this topic [facility]pahkcs2486[facility] 18:21:56 Diagnosis MCI (mild cognitive impairment) with memory loss - Primary Mild cognitive impairment, so stated Insomnia, unspecified type [facility] LakeZfmoara4845-85-08 10:03:52Upcoming Encounters Health Maintenance Due Date Last Done [...] on patient's age to complete this topic [facility] LakeLokcsak9619-68-09 10:03:52 Diagnosis MCI (mild cognitive impairment) with memory loss - Primary Mild cognitive impairment, so stated [facility] LakeWrsdcxx1790-29-02 10:03:52 [facility] LakeUywrcon4835-52-73 10:03:52* [facility] LakeWhreygx1658-42-32 10:03:52 [facility] LakeHtpabdq3101-92-40 10:03:52* Sirisha Rosario MD - 12/16/2024 9:30 [...] mouth at bedtime. Stable, continue present medications. [facility]2025-04-15 10:03:51* [facility] LakeXtpgfwo6871-81-57 10:03:51 [facility] LakeNxhtlmq1819-19-94 10:03:51* Sirisha Rosario MD - 12/16/2024 9:30 [...] mouth at bedtime. Stable, continue present medications. [facility] LakeCtuiqmo0954-54-29 10:03:51Upcoming Encounters Health Maintenance Due Date Last [...] on patient's age to complete this topic [facility] LakeJqzucnr6242-18-62 10:03:51 Diagnosis MCI (mild cognitive impairment) with memory loss - Primary Mild cognitive impairment, so stated [facility] LakeJwfhsja1290-21-13 10:03:51 [facility] LakeQanyaxm2091-40-94 10:39:27* [facility] LakeFbhrmkc0420-61-03 10:39:27 [facility] LakeZnurdce8187-58-34 10:39:27* Sirisha Rosario MD - 09/17/2024 9:30 AM DIRECT [employer] History of Present Illness Memory Loss Insomnia [...] Restart medication, re evaluate in 3-4 months. [facility]2025-01-15 10:39:27Upcoming Encounters Health Maintenance Due Date [...] on patient's age to complete this topic [facility] LakeMloruio2871-17-82 10:39:27 Diagnosis MCI (mild cognitive impairment) with memory loss - Primary Mild cognitive impairment, so stated [facility] LakeCgjgqay6821-73-73 10:39:27 [place] 656695-01-15 10:39:27* [facility] LakeSxjqued6263-89-00 10:39:27 [facility] LakeAcssovz9029-30-91 10:39:27* Sirisha Rosario MD - 09/17/2024 9:30 AM DIRECT [employer] History of Present Illness Memory Loss Insomnia [...] Restart medication, re evaluate in 3-4 months. [facility]2025-01-15 10:39:27Upcoming Encounters Health Maintenance Due Date [...] on patient's age to complete this topic [facility] LakeEoqleov2120-91-76 10:39:27 Diagnosis MCI (mild cognitive impairment) with memory loss - Primary Mild cognitive impairment, so stated [facility]Ntopgmy6002-99-39 10:39:27 [facility] SouthDgchbww8909-66-23 10:18:46 [facility] SouthAdwxino5147-75-54 10:18:46* [facility] SouthWgyeqnq9343-36-49 10:18:31 Medication filled, please call patient and have them schedule a follow up. Adeel Garcia
[2025-04-30] MEDS ORDERED: PROMETHAZINE INJ 25 MG/ML AMP ONE (12:55)
[2025-04-30] MEDS ORDERED: FLUORESCEIN SODIUM 1 MG/WRAP ONE (12:55)
[2025-04-30] MEDS ORDERED: TETRACAINE HCL 0.5% 4ML OPTH ONE (12:55)
--- NOTE | 2025-04-30 13:25 | ER ---
Nurse's Notes [facility] Name: Milan Weir Age: 85 yrs Sex: Female : 1940 Arrival Date: 04/30/2025 Time: 11:48 Bed 25 Private MD: Diagnosis: Unspecified acute conjunctivitis, left eye Presentation: 04/30 12:34 Chief complaint: EMS states: toned out for eye pain. Patient woke up with left eye me1 pain, redness and swelling. hx chronic back pain and nausea- did not take meds before calling EMS. Given zofran 4 mg IN. States pain 8/10. Coronavirus screen: Vaccine status: Patient reports receiving the 2nd dose of the covid vaccine. Ebola Screen: No symptoms or risks identified at this time. Initial Sepsis Screen: Does the patient meet any 2 criteria? No. Patient's initial sepsis screen is negative. Does the patient have a suspected source of infection? No. Patient's initial sepsis screen is negative. Risk Assessment: Do you want to hurt yourself or someone else? Patient reports no desire to harm self or others. Onset of symptoms was April 30, 2025 at 08:00. 12:34 Method Of Arrival: EMS: [facility] me1 12:34 Acuity: JARRETT 4 me1 Historical: - Allergies: 11:51 Codeine; ss 11:51 Morphine; ss 11:51 Tylenol-Codeine; ss - PMHx: 11:51 Alzheimers; COPD; HARD OF HEARING; Hernia; Pancreatitis; ss - PSHx: 11:51 Appendectomy; Adenoid excision; breast implants; Cholecystectomy; double masectomy; ss stomach surgery to prevent vomiting; Tonsillectomy; Total abdominal hysterectomy; - Immunization history:: Adult Immunizations up to date. - Infectious Disease History:: Denies. - Social history:: Smoking status: Patient/guardian denies using tobacco, but has a distant history of tobacco abuse. Screenin:15 [facility] ED Fall Risk Assessment (Adult) History of falling in the last 3 months, jb4 including since admission No falls in past 3 months (0 pts) Confusion or Disorientation No (0 pts) Intoxicated or Sedated No (0 pts) Impaired Gait No (0 pts) Mobility Assist Device Used No (0 pt) Altered Elimination No (0 pt) Score/Fall Risk Level 0 - 2 = Low Risk Oriented to surroundings, Maintained a safe environment. Abuse screen: Denies threats or abuse. Nutritional screening: No deficits noted. Tuberculosis screening: No symptoms or risk factors identified. Assessment: 13:00 General: Appears in no apparent distress. uncomfortable. Pain: Complains of pain in jb4 left eye Pain does not radiate. Pain currently is 8 out of 10 on a pain scale. Neuro: Level of Consciousness is awake, alert, obeys commands, Oriented to person, place, time, situation. Cardiovascular: Patient's skin is warm and dry. Respiratory: Airway is patent Respiratory effort is even, unlabored, Respiratory pattern is regular, symmetrical. GI: Reports nausea. EENT: Sclera/Cornea are reddened in outer aspect of conjuctiva of left eye, iris of left eye and inner aspect of conjunctiva of left eye. Derm: Skin is intact, Skin is pink, warm \T\ dry. Musculoskeletal: Circulation, motion, and sensation intact. Range of motion: intact in all extremities. Vital Signs: 12:34 BP 159 / 75; Pulse 57; Resp 17; Temp 98.1; Pulse Ox 100% ; Weight 52.62 kg; Height 5 me1 ft. 4 in. ; Pain 8/10; 13:15 BP 145 / 73; Pulse 60; Resp 16; Pulse Ox 100% on R/A; jb4 12:34 Body Mass Index 19.91 (52.62 kg, 162.56 cm) me1 12:34 Pain Scale: Adult ny1 ED Course: 11:50 Patient arrived in ED. mr 11:50 Fran Canseco, BELTRAN[facility]Jg [facility] 11:50 Sean Seymour MD is Attending Physician. dr5 12:34 Arm band placed on Patient placed in an exam room. me1 12:37 Triage completed. me1 13:07 Tello Darling, SANDY is Primary Nurse. jb4 13:15 Patient has correct armband on for positive identification. Bed in low position. Call jb4 light in reach. Side rails up X 1. 13:15 No provider procedures requiring assistance completed. Patient did not have IV access jb4 during this emergency room visit. 13:39 Provided Education on: discharge instructions.. 4 Administered Medications: 13:14 Drug: Promethazine IM 25 mg IM once Route: IM; Site: right gluteus; jb4 13:36 Follow up: Response: No adverse reaction; Marked relief of symptoms; Nausea is decreasedjb4 13:20 Drug: Tetracaine Ophthalmic Drops 0.5 % 1 drops Ophthalmic once {Note: administered by jb4 ER provider.} Route: Ophthalmic; Site: left eye; 13:37 Follow up: Response: No adverse reaction; Marked relief of symptoms; Pain is decreased jb4 13:36 Not Given (Physician Discretion): fluoresceinstrip 1 strip Ophthalmic once jb4 Medication: 13:00 VIS not applicable for this client. jb4 Outcome: 13:25 Discharge ordered by . ary 13:39 Discharged to home via wheelchair, with family, jb4 13:39 Condition: stable 13:39 Discharge instructions given to patient, Instructed on discharge instructions, follow up and referral plans. Demonstrated understanding of instructions, follow-up care, medications, Prescriptions given X 1, 13:40 Patient left the ED. jb4 Signatures: Ivonne Cota, Reg Reg mr Dolores Hidalgo, RN RN Tello Darling RN RN jb Sheridan Keenan RN RN me1 Fran Canseco, CAMP DINING ROOM ATTENDANT-C CAMP DINING ROOM ATTENDANT-Cdr5 Corrections: (The following items were deleted from the chart) 13:39 13:15 Provided Education on: discharge instructions.. jb4 jb4 13:39 13:00 BP 145 / 73; Pulse 60bpm; Resp 16bpm; Pulse Ox 100% RA; jb4 jb4
--- NOTE | 2025-04-30 13:25 | EDPHYS ---
Physician Documentation [facility] Name: Milan Weir Age: 85 yrs Sex: Female : 1940 Arrival Date: 04/30/2025 Time: 11:48 Bed 25 Private MD: ED Physician Sean Seymour HPI: 04/30 15:16 This 85 yrs old Female presents to ER via EMS with complaints of Eye Pain, dr5 Nausea. 15:16 The patient is experiencing pain, redness, tearing, The patient sustained to the left dr5 eye. Onset: The symptoms/episode began/occurred this morning. Patient is an 85-year-old female with history of Alzheimer's, COPD, hernia, pancreatitis coming in with left eye pain, tearing, crusting when she woke up this morning. Patient reports that she has chronic nausea and was given Zofran prior to arrival. Patient is requesting more nausea medicine. Patient reports she has had conjunctivitis of her left eye it previously before.. Historical: - Allergies: 11:51 Codeine; ss 11:51 Morphine; ss 11:51 Tylenol-Codeine; ss - PMHx: 11:51 Alzheimers; COPD; HARD OF HEARING; Hernia; Pancreatitis; ss - PSHx: 11:51 Appendectomy; Adenoid excision; breast implants; Cholecystectomy; double masectomy; ss stomach surgery to prevent vomiting; Tonsillectomy; Total abdominal hysterectomy; - Immunization history:: Adult Immunizations up to date. - Infectious Disease History:: Denies. - Social history:: Smoking status: Patient/guardian denies using tobacco, but has a distant history of tobacco abuse. ROS: 15:16 Constitutional: as per hpi dr5 Exam: 15:16 Constitutional: This is a well developed, well nourished patient who is awake, alert, dr5 and in no acute distress. Head/Face: Normocephalic, atraumatic. ENT: Nares patent. No nasal discharge, no septal abnormalities noted. Tympanic membranes are normal and external auditory canals are clear. Oropharynx with no redness, swelling, or masses, exudates, or evidence of obstruction, uvula midline. Mucous membranes moist. Neck: Trachea midline, no thyromegaly or masses palpated, and no cervical lymphadenopathy. Supple, full range of motion without nuchal rigidity, or vertebral point tenderness. No Meningismus. Chest/axilla: Normal chest wall appearance and motion. Nontender with no deformity. No lesions are appreciated. Cardiovascular: Regular rate and rhythm with a normal S1 and S2. Normal PMI, no JVD. No pulse deficits. Respiratory: Lungs have equal breath sounds bilaterally, clear to auscultation. No rales, rhonchi or wheezes noted. No increased work of breathing, no retractions or nasal flaring. Back: No spinal tenderness. No costovertebral tenderness. Full range of motion. Skin: Warm, dry with normal turgor. Normal color with no rashes, no lesions, and no evidence of cellulitis. MS/ Extremity: Pulses equal, no cyanosis. Neurovascular intact. Full, normal range of motion. Neuro: Awake and alert, GCS 15, oriented to person, place, time, and situation. Cranial nerves II-XII grossly intact. Motor strength 5/5 in all extremities. Sensory grossly intact. Cerebellar exam normal. Normal gait. 15:16 Eyes: Periorbital structures: appear normal, no acute changes, Pupils: no acute changes, equal, round, and reactive to light and accomodation, Extraocular movements: intact throughout, Conjunctiva: exudate, in the left eye, tearing noted, in left eye, Corneas: no acute changes, no evidence of abrasion, no foreign body, Sclera: no appreciated abnormality, Vital Signs: 12:34 BP 159 / 75; Pulse 57; Resp 17; Temp 98.1; Pulse Ox 100% ; Weight 52.62 kg; Height 5 me1 ft. 4 in. ; Pain 8/10; 13:15 BP 145 / 73; Pulse 60; Resp 16; Pulse Ox 100% on R/A; jb4 12:34 Body Mass Index 19.91 (52.62 kg, 162.56 cm) me1 12:34 Pain Scale: Adult me1 Procedures: 15:16 Eye Exam: Tetracaine fluorescein strip used for eye exam. dr5 MDM: 11:50 Medical Screening Exam initiated dr5 15:16 Differential diagnosis: Acute iritis of left eye. Chemical conjunctivitis in left eye. dr5 Allergic conjunctivitis in left eye. Infectious conjunctivitis in left eye. Data reviewed: vital signs, nurses notes. Consideration of Admission/Observation Escalation of care including admission/observation considered. Escalation considered patient found to have Cecilio sign. I considered the following discharge prescriptions or medication management in the emergency department I discussed and recommended Over The Counter medications, Medications were administered in the Emergency Department. See MAR. Historians other than the Patient: Daughter/Son: Son at bedside. Care significantly affected by the following chronic conditions: Alzheimer's, COPD, hernia, pancreatitis. Care significantly affected by the following Social Determinants of Health: Poor access to healthcare and/or lack of insurance, Poor access to transportation, Problems related to employment. Counseling: I had a detailed discussion with the patient and/or guardian regarding the historical points, exam findings, and any diagnostic results supporting the discharge/admit diagnosis, the presence of at least one elevated blood pressure reading (>120/80) during this emergency department visit, the need for outpatient follow up, for definitive care, an opthalmologist, to return to the emergency department if symptoms worsen or persist or if there are any questions or concerns that arise at home. Medication response: Tetracaine. Response to treatment: the patient's symptoms have resolved after treatment. Special discussion: I have referred the patient to see his PCP for further evaluation of high blood pressure. I discussed with the patient/guardian in detail that at this point there is no indication for admission to the hospital. It is understood, however, that if the symptoms persist or worsen the patient needs to return immediately for re-evaluation. Based on the history and exam findings, there is no indication for further emergent testing or inpatient evaluation. I discussed with the patient/guardian the need to see the opthamologist for further evaluation of the symptoms. ED course: Tetracaine used and fluorescein. No abrasion noted. No Cecilio sign. Conjunctivitis noted to left side. Will give patient antibiotic drops. Recommended patient follow-up primary care doctor and GI doctor for nausea and vomiting. All question answered. Strict ER precautions given. Administered Medications: 13:14 Drug: Promethazine IM 25 mg IM once Route: IM; Site: right gluteus; [facility] 13:36 Follow up: Response: No adverse reaction; Marked relief of symptoms; Nausea is decreasedb4 13:20 Drug: Tetracaine Ophthalmic Drops 0.5 % 1 drops Ophthalmic once {Note: administered by [facility] ER provider.} Route: Ophthalmic; Site: left eye; 13:37 Follow up: Response: No adverse reaction; Marked relief of symptoms; Pain is decreased 4 13:36 Not Given (Physician Discretion): fluoresceinstrip 1 strip Ophthalmic once jb4 Disposition: 05/01 13:35 Co-signature as Attending Physician, Sean Seymour MD I agree with the assessment and nargis plan of care. Disposition Summary: 04/30/25 13:25 Discharge Ordered Notes: Location: Home dr5 Condition: Stable dr5 Diagnosis - Unspecified acute conjunctivitis, left eye dr5 Followup: dr5 - With: Emergency Department - When: As needed - Reason: Worsening of condition Followup: dr5 - With: Private Physician - When: 1 - 2 days - Reason: Recheck today's complaints, Continuance of care, Re-evaluation by your physician Discharge Instructions: - Discharge Summary Sheet dr5 - Bacterial Conjunctivitis, Adult dr5 Forms: - Medication Reconciliation Form dr5 - Antibiotic Education dr5 - Patient Portal Instructions dr5 - Leadership Thank You Letter dr5 Prescriptions: - Ocuflox 0.3 % Ophthalmic drops - instill 2 drops OPHTHALMIC route every 6 hours for 7 days; 30 milliliter; dr5 Refills: 0, Product Selection Permitted Signatures: Sean Seymour MD MD cha Blanchard, Shelby, RN RN Tello Darling RN RN jb4 Sheridan Keenan, SANDY RN me1 Fran Canseco, MANAGER ELECTRONIC-C MANAGER ELECTRONIC-Cdr5
[2025-04-30 20:43] VITALS: TEMP 98.1; O2SAT 100
[2025-04-30 20:48] VITALS: BP 145/73
== END 2025-04-30 13:40 | disposition home or self-care (01) ==
LOC: ER 11:48
DX: H10.32 Unspecified acute conjunctivitis, left eye (principal)
CPT/HCPCS: 96372; 99284; J2550

== ENCOUNTER 2025-05-21 08:09 | Emergency (ER) | payer OTHER ==
--- OUTSIDE RECORDS SUMMARY | 2025-05-21 08:14 | XMS REPORT | Continuity of Care Document ---
Author Name Unknown Address [address] [facility] [place] [address] [facility] [place] Address [address] [facility] [place] [address] Care Team Providers Care Payroll And Benefits Assistant Name Role Phone PCP, PATIENT DOES NOT HAVE A Primary Care Physic padmini Sirisha Suárez MD Attending Clinician SIRISHA ROSARIO Attending Clinician Unavail able NIECY BALL Attending Clinician Unavailab Niecy Gallardo DO Attending Clinician [phone] RADIOLOGY Attending Clinician Unavailable Radiology Attending Clinician Unavailable MIKHAIL HURTADO Attending Clinician Unavailab NIECY Gallardo Admitting Clinician Unavailab MEKA Ricks Admitting Clinician Unavailable MIKHAIL HURTADO Admitting Clinician Unavailab sil Payers Payer Name Policy Type Policy Number Effective Date Expirati on Date Source [employer] MEDICARE OON Medicare [id number] 00:00:00 FOR LIFE Other [id number] 2021 00:00:00 [employer] ESSENTIALS COMM [id number] 2017 00:00:00 MEDICARE PART A \\T\\ B [id number] 2004 00:00:00 BCBS TRADITIONAL [id number] 2017 00:00:00 Problems Condition Name Condition Details Condition Category Status Onset Date Resolution Date Last Treatment Date Treating Clinician Comments Source 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 04-14 00:00: 00 Layton Villaseñor Cholelithi asis Cholelithi asis Disease Active 04-14 00:00: 00 Layton Villaseñor Degenerati on of cervical interverte bral disc Degenerati on of cervical interverte bral disc Disease Active 04-14 00:00: 00 Layton Villaseñor Acute diverticul itis [...] of lumbar interverte bral disc Disease Active 15 00:00: 00 Layton Villaseñor Thoracic back pain Thoracic back pain Disease Active 415 00:00: 00 Layton Villaseñor Chronic kidney disease, stage II (mild) Chronic kidney disease, stage II (mild) Disease Active 05-24 00:00: 00 Layton Villaseñor 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 Disease Active 05-24 00:00: 00 Layton Villaseñor Alzheimer' s disease Alzheimer' s disease Disease Active - 00:00: 00 Layton Villaseñor Colitis Colitis Disease Active 2-05 00:00: 00 Layton Villaseñor Chronic obstructiv e pulmonary disease Chronic obstructiv e pulmonary disease Disease Active 2-05 00:00: 00 Layton Villaseñor No known active problems No known active problems Disease [facility] Acid reflux Acid reflux Disease Resolve [...] Lactic acidosis Lactic acidosis Disease Resolve d - 00:00: 00 2024-09-17 00:00:00 2024-09-17 10:06:57 Layton Villaseñor Lip swelling Lip swelling Disease Resolve d - 00:00: 00 2024-09-17 00:00:00 2024-09-17 10:06:57 Layton Villaseñor Vomiting Vomiting Disease Resolve d - 00:00: 00 2024-09-17 00:00:00 2024-09-17 10:06:57 Layton Vlilaseñor Allergies, Adverse Reactions, Alerts Allergy Name Allergy Type Status Severity Reaction(s) Onset Date Inactive Date Treating Clinician Comments Source Morphine Propensi ty to adverse reaction s Active GI intolerance -20 00:00: 00 Layton Villaseñor CODEINE DRUG INGREDI Active N/V - 00:00: 00 [facility] Codeine Propensi ty to adverse reaction s Active Nausea and/or Vomiting - 00:00: 00 [facility] Acetamin ophen Propensi ty to adverse reaction s Active GI intolerance 10-08 00:00: 00 Other Reaction( s): Not available Layton roldan Jose [facility] Codeine Allergy to substanc e Active GI intolerance, Nausea And Vomiting 10-08 00:00: 00 Other Reaction( s): Not available Layton roldan Jose [facility] NO KNOWN ALLERGIE S Drug Class Active [facility] Social History Social Habit Start Date Stop Date Quantity Comments Source Gender identity 2023-11-25 02:02:51 Identifies as female gender (finding) [facility] ASSERTION Possible [facility] History of tobacco use Passive smoker [facility] Sexual orientation [facility] Alcoholic beverage intake 2025-04-14 00:00:00 2025-04-14 [...] (event) 2022-09-08 00:00:00 2022-09-18 09:01:00 Not sure [facility] Sex Assigned At 1940 00:00:00 1940 00:00:00 [facility] Smoking Status Start Date Stop Date Source Tobacco smoking consumption unknown [facility] Ex-smoker 2024-09-17 00:00:00 2024-09-17 00:00:00 [facility] Medications Ordered Medication Name Filled Medication Name Start Date Stop Date Current Medication? Ordering Clinician Indication Dosage Frequency Signature (SIG) Comments Components Source memantine (Namenda) 5 MG tablet memantine (Namenda) 5 MG tablet 05-18 00:00: 00 Yes TAKE ONE (1) TABLET(S) BY MOUTH TWICE A DAY (MORNING AND EVENING). Layton Garcia [facility] mirtazapine (Remeron) 15 MG tablet mirtazapine (Remeron) 15 MG tablet 2024-0 9-15 00:00: 00 Yes 15mg TAKE ONE (1) TABLET(S) BY MOUTH ONCE A DAY AT BEDTIME. Layton Garcia Epic donepezil (Aricept) 5 MG tablet donepezil (Aricept) 5 MG tablet 0 9-15 00:00: 00 Yes 5mg TAKE ONE (1) TABLET(S) BY MOUTH AT BEDTIME. Layton Garcia Epic donepezil (Aricept) 5 MG tablet donepezil (Aricept) 5 MG tablet 0 4-15 00:00: 00 05-18 00:00 :00 No 5mg Take 1 tablet by mouth at bedtime. Layton Garcia Epic memantine (Namenda) 5 MG tablet memantine (Namenda) 5 MG tablet 4-15 00:00: 00 05-18 00:00 :00 No 5mg Q.5D Take 1 tablet by mouth in the morning and 1 tablet in the evening. Layton Garcia Epic mirtazapine (Remeron) 15 MG tablet mirtazapine (Remeron) 15 MG tablet 4-15 00:00: 00 05-18 00:00 :00 No 15mg Take 1 tablet by mouth at bedtime. Layton Garcia Epic diphenhydrA MINE HCl, Sleep, (ZZZQUIL PO) diphenhydrA MINE HCl, Sleep, (ZZZQUIL PO) 1-15 09:49: 46 Yes Take by mouth. Layton Garcia Epic memantine (Namenda) 5 MG tablet memantine (Namenda) 5 MG tablet 0 1-15 00:00: 00 12-16 00:00 :00 No 5mg Q.5D Take 1 tablet by mouth in the morning and 1 tablet in the evening. Layton Garcia Epic donepezil (Aricept) 5 MG tablet donepezil (Aricept) 5 MG tablet 0 1-15 00:00: 00 12-16 00:00 :00 No 5mg Take 1 tablet by mouth at bedtime. Layton Garcia Epic mirtazapine (Remeron) 15 MG [...] (1) TABLET(S) BY MOUTH DAILY AT BEDTIME. Darlinval jamar Jose Epic donepezil (Aricept) 5 MG tablet donepezil (Aricept) 5 MG tablet 2022-09 00:00: 00 09-17 00:00 :00 No See Instructio ns, TAKE ONE (1) TABLET(S) BY MOUTH DAILY., # 30 ea, 3 Refill(s), Pharmacy: [place] [id number], 162.56, cm, 06/14/23 9:48:00 CDT, Height, 61.023, kg, 06/14/23 9:48:00 CDT, Weight Darlinval Garcia Epic memantine (Namenda) 5 MG tablet memantine (Namenda) 5 MG tablet 2022-09 1- 00:00: 00 09-17 00:00 :00 No See Instructio ns, TAKE ONE (1) TABLET(S) BY MOUTH TWICE A DAY., # 60 ea, 3 Refill(s), Pharmacy: [place] [id number], 162.56, cm, 06/14/23 9:48:00 CDT, Height, 61.023, kg, 06/14/23 9:48:00 CDT, Weight Memval jamar Jose Epic omeprazole (PriLOSEC) [address] capsule omeprazole (PriLOSEC) [address] capsule 2023-0 6-08 00:00: 00 Yes TAKE ONE (1) CAPSULE(S) BY MOUTH DAILY NEEDED. Layton roldan [facility] No known medications -16 09:05: 08 No No known medication s [facility] gadoteridol (PROHANCE-1 5 mL) injection 0.2 mL/kg 2019-09 21:45: 00 08-12 22:15 :00 No .2mL/kg 0.2 mL/kg, Intravenou s, ONCE, 1 dose, Leni 08/12/20 at 1545, Routine [facility] Vital Signs Vital Name Observation Time Observation Value Comments Ashley paul Systolic blood pressure 2025-04-14 09:50:00 129 mm[Hg] [facility] Diastolic blood pressure 2025-04-14 09:50:00 83 mm[Hg] [facility] Heart rate 2025-04-14 09:50:00 78 /[facility] temperature 2025-04-14 09:50:[address] [facility] Respiratory rate 2025-04-14 09:50:00 16 /min [facility] Body height 2025-04-14 09:50:00 161.3 cm [facility] Body weight 2025-04-14 09:50:00 54.432 kg [facility] BMI 2025-04-14 09:50:00 20.92 kg/m2 [facility] Oxygen saturation in Arterial blood by Pulse oximetry 2025-04-14 09:50:00 96 /min [facility] Systolic blood pressure 2025-04-14 09:50:00 129 mm[Hg] [facility] Diastolic blood pressure 2025-04-14 09:50:00 83 mm[Hg] [facility] Heart rate 2025-04-14 09:50:00 78 /min [facility] Body temperature 2025-04-14 09:50:[address] [facility] Respiratory rate 2025-04-14 09:50:00 16 /min [facility] Body height 2025-04-14 09:50:00 161.3 cm [facility] Body weight 2025-04-14 09:50:00 54.432 kg Miguel A rial Jose Epic BMI 2025-04-14 09:50:00 20.92 kg/m2 Miguel A rial Jose Epic Oxygen saturation in Arterial blood by Pulse oximetry 2025-04-14 09:50:00 96 /min [facility] Systolic blood pressure 2024-12-16 09:27:00 152 mm[Hg] [facility] Diastolic blood pressure 2024-12-16 09:27:00 92 mm[Hg] [facility] Heart rate 2024-12-16 09:27:00 66 /min Memor ial Jose Epic Body temperature 2024-12-16 09:27:00 36.67 [facility] Respiratory rate 2024-12-16 09:27:00 16 /min [facility] Body height 2024-12-16 09:27:00 161.3 cm Miguel A rial Jose [facility] Body weight 2024-12-16 09:27:00 55.067 kg Miguel A rial Jose Epic BMI 2024-12-16 09:27:00 21.17 kg/m2 Miguel A rial Jose Epic Oxygen saturation in Arterial blood by Pulse oximetry 2024-12-16 09:27:00 97 /min [facility] Her wasserman [facility] Systolic blood pressure 2024-12-16 09:27:00 152 mm[Hg] [facility] Her wasserman [facility] Diastolic blood pressure 2024-12-16 09:27:00 92 mm[Hg] [facility] Heart rate 2024-12-16 09:27:00 66 /min Memor ial Jose Epic Body temperature 2024-12-16 09:27:00 36.67 [facility] Epic Respiratory rate 2024-12-16 09:27:00 16 /min [facility] Body height 2024-12-16 09:27:00 161.3 cm Miguel A rial [place] [facility] Body weight 2024-12-16 09:27:00 55.067 kg Miguel A rial Jose Epic BMI 2024-12-16 09:27:00 21.17 kg/m2 Miguel A rial Jose [facility] Oxygen saturation in Arterial blood by Pulse oximetry 2024-12-16 09:27:00 97 /min [facility] Systolic blood pressure 2024-09-17 10:05:00 142 mm[Hg] [facility] Diastolic blood pressure 2024-09-17 10:05:00 82 mm[Hg] [facility] Heart rate 2024-09-17 10:05:00 83 /min Memor ial [place] [facility] Body temperature 2024-09-17 10:05:[address] [facility] Respiratory rate 2024-09-17 10:05:00 16 /min [facility] Body height 2024-09-17 10:05:00 162.6 cm Miguel A rial [place] [facility] Body weight 2024-09-17 10:05:00 51.256 kg Miguel A rial Jose Epic BMI 2024-09-17 10:05:00 19.40 kg/m2 Miguel A rial [place] [facility] Oxygen saturation in Arterial blood by Pulse oximetry 2024-09-17 10:05:00 97 /min [facility] Systolic blood pressure 2024-09-17 10:05:00 142 mm[Hg] [facility] Diastolic blood pressure 2024-09-17 10:05:00 82 mm[Hg] [facility] Heart rate 2024-09-17 10:05:00 83 /min Memor ial Jose [facility] Body temperature 2024-09-17 10:05:[address] [facility] Respiratory rate 2024-09-17 10:05:00 16 /min [facility] Body height 2024-09-17 10:05:00 162.6 cm Miguel A rial [place] [facility] Body weight 2024-09-17 10:05:00 51.256 kg Miguel A rial [facility] [facility] BMI 2024-09-17 10:05:00 19.40 kg/m2 Miguel A rial Jose Epic Oxygen saturation in Arterial blood by Pulse oximetry 2024-09-17 10:05:00 97 /min [facility] Heart rate 2022-09-18 16:44:00 62 /min [facility] Respiratory rate 2022-09-18 16:44:00 20 /min [facility] Oxygen saturation in Arterial blood by Pulse oximetry 2022-09-18 16:44:00 99 /min [facility] Systolic blood pressure 2022-09-18 16:00:18 153 mm[Hg] [facility] Diastolic blood pressure 2022-09-18 16:00:18 86 mm[Hg] [facility] Body temperature 2022-09-18 15:03:00 36.89 Keesha [facility] Body height 2022-09-18 15:03:00 160 cm [facility] Body weight 2022-09-18 15:03:00 53.524 kg [facility] BMI 2022-09-18 15:03:00 20.90 kg/m2 [facility] Procedures Procedure Date / Time Performed Performing Clinicia n Source CT TRAUMA HEAD WO CONTRAST 2022-09-18 15:55:32 Niecy Ball [facility] CT TRAUMA CERVICAL SPINE WO CONTRAST 2022-09-18 15:55:32 Niecy Ball [facility] XR SHOULDER <2 VW LEFT 2022-09-18 15:40:40 Ashley Ball [facility] NOTICE OF PRIVACY PRACTICES 2022-09-18 14:59:10 Doctor Unassigned, [place] [facility] CONSENT/REFUSAL FOR DIAGNOSIS AND TREATMENT 2022-09-18 14:58:45 Doctor Unassigned, [place] [facility] MR ABDOMEN W WO CONTRAST MRCP 2020-08-12 22:16:07 Requisition, Paper [facility] NOTICE OF PRIVACY PRACTICES 2020-08-12 21:10:37 Doctor Unassigned, [place] [facility] CONSENT/REFUSAL FOR DIAGNOSIS AND TREATMENT 2020-08-12 21:10:07 Doctor Unassigned, [place] [facility] ASSIGNMENT OF BENEFITS 2020-08-12 21:09:46 Docto r Unassigned, [place] [facility] Encounters Start Date/Time End Date/Time Encounter Type Admission Type Attending Clinicians Care Facility Care Department Encounter ID Source 2024-10-08 09:08:00 [id number] [facility] 2025-05-17 00:00:00 2025-05-18 11:40:41 Sirisha Patel [id number] [facility]25-04-14 09:45:00 2025-04-14 10:06:32 Office Visit Sirisha Rosario [id number] [facility] 2025-04-14 09:37:52 2025-04-14 10:06:32 Outpatient Elective SIRISHA ROSARIO M[facility]OUT M[facility]OUT [id number] [facility] 2025-03-30 10:22:28 2025-03-30 10:22:28 Outpatient [facility] [id number] Todd Cervantes 2024-12-16 09:30:00 2024-12-16 09:47:39 Office Visit Sirisha Rosario [place] [id number] [facility] 2024-12-16 09:04:18 2024-12-16 09:47:39 Outpatient Elective SIRISHA ROSARIO MHEOUT MHEOUT [id number] [facility]OUT 2024-10-24 17:18:41 2024-10-24 17:18:41 Outpatient [facility] [id number] Todd Cervantes 2024-10-08 14:25:58 2024-10-08 14:25:58 Outpatient [facility] [id number] Todd Cervantes 2024-09-17 09:39:26 2024-09-17 10:27:49 Outpatient Elective SIRISHA ROSARIO [facility]HEOUT M[facility]OUT [id number] [facility] 2024-09-17 09:30:00 2024-09-17 10:27:49 Office Visit Sirisha Rosario [id number] Layton roldan [facility] 2024-04-17 00:00:00 2024-04-18 10:18:36 Sirisha Patel [id number] [id number] [id number] Layton Garcia [facility] 2022-09-18 09:05:00 2022-09-18 10:46:00 Emergency X NIECY [facility] ERT [id number] [facility] 2022-09-18 09:05:00 2022-09-18 10:46:00 Emergency Niecy Ball [facility] [id number] [id number] [id number] [id number] [facility] 2020-08-12 15:11:31 2020-08-12 23:59:00 Outpatient R RADIOLOGY [facility] [id number] [facility] 2020-08-12 15:00:00 2020-08-12 23:59:00 Hospital Encounter Radiology [facility] [id number] [id number] [id number] [id number] 2020-08-12 15:00:00 2020-08-12 23:59:00 Hospital Encounter Radiology [facility] [id number] [id number] [id number] [id number] [facility] Results Test Description Test Time Test [...] without and with contrast including MRCP studies. [facility], Radiant Results Inft User - 08/12/2020 4:29 [...] and with contrast including MRCP studies. [facility], Ckbyq1402-77-04 09:33:00* Test Item Value Reference Range Interpretation [...] and management of chronic kidney failure. [facility] Notes Date/Time Note Provider Source 2025-05-18 11:40:50 [facility]2025-09-15 11:40:50Upcoming Encounters Health Maintenance Due Date Last Done [...] on patient's age to complete this topic [facility] HospitalSiftcek7070-07-18 11:40:50 [facility] HospitalTbrfvlq6959-84-81 18:21:56 [place] 627295-08-12 18:21:56* [facility] HospitalMqasdek0539-51-77 18:21:56 [facility] HospitalJdoqqea7968-93-49 18:21:56* Sirisha Rosario MD - 04/14/2025 9:45 [...] apparent weakness or pronator drift. Coordination: Right: Eapuoz-ru-txci normal. Rapid alternating movement is normal. Left: Hnijeb-ku-ethm normal. Rapid alternating movement is normal. Gait: [...] Ongoing difficulty with sleep onset and maintenance. [facility]2025-08-12 18:21:56Upcoming Encounters Health Maintenance Due Date Last [...] on patient's age to complete this topic [facility] HospitalHnmgaan5895-74-10 18:21:56 Diagnosis MCI (mild cognitive impairment) with memory loss - Primary Mild cognitive impairment, so stated Insomnia, unspecified type [facility] HospitalOybesmk4235-50-99 18:21:56 [place] 627295-08-12 18:21:56* [place] 627295-08-12 18:21:56 [facility] HospitalGyzermv8640-05-61 18:21:56* Sirisha Rosario MD - 04/14/2025 9:45 [...] apparent weakness or pronator drift. Coordination: Right: Erslcz-av-bekm normal. Rapid alternating movement is normal. Left: Auzpbv-co-vxpn normal. Rapid alternating movement is normal. Gait: [...] Ongoing difficulty with sleep onset and maintenance. [facility]2025-08-12 18:21:56Upcoming Encounters Health Maintenance Due Date Last [...] on patient's age to complete this topic [facility] HospitalDepokui7305-84-60 18:21:56 Diagnosis MCI (mild cognitive impairment) with memory loss - Primary Mild cognitive impairment, so stated Insomnia, unspecified type [facility] HospitalXvfbjff1988-42-80 10:03:52Upcoming Encounters Health Maintenance Due Date Last [...] on patient's age to complete this topic [facility] HospitalRatizda2846-54-90 10:03:52 Diagnosis MCI (mild cognitive impairment) with memory loss - Primary Mild cognitive impairment, so stated [facility] HospitalSecderz3549-95-34 10:03:52 [facility] HospitalAwgueuy8497-64-71 10:03:52* [facility] HospitalVbckvuf0878-29-72 10:03:52 [facility] HospitalJmkszpf3079-85-23 10:03:52* Sirisha Rosario MD - 12/16/2024 9:30 [...] mouth at bedtime. Stable, continue present medications. [facility] HospitalKohxeux2381-84-64 10:03:51* [facility] HospitalHwuamiu8218-57-16 10:03:51 [place] 627295-04-15 10:03:51* Sirisha Rosario MD - 12/16/2024 9:30 [...] mouth at bedtime. Stable, continue present medications. [facility] Xkwetst9854-94-43 10:03:51Upcoming Encounters Health Maintenance Due Date Last [...] on patient's age to complete this topic [facility]cam9386[facility]42-75 10:03:51 Diagnosis MCI (mild cognitive impairment) with memory loss - Primary Mild cognitive impairment, so stated [facility]ennialPylchvb5211-93-99 10:03:51 [facility]ennialNgvmepe1069-52-22 10:39:27* [facility]ennialSekhkan5300-01-97 10:39:27 [facility]ennialCffqgoa2298-93-45 10:39:27* Sirisha Rosario MD - 09/17/2024 9:30 AM [employer] History of Present Illness Memory Loss Insomnia [...] Restart medication, re evaluate in 3-4 months. [facility]2025-01-15 10:39:27Upcoming Encounters Health Maintenance Due Date Last [...] on patient's age to complete this topic [facility] HospitalOkujwrb6622-10-67 10:39:27 Diagnosis MCI (mild cognitive impairment) with memory loss - Primary Mild cognitive impairment, so stated [place] 627295-01-15 10:39:27 [place] 627295-01-15 10:39:27* [facility] HospitalBpoclrn2161-07-32 10:39:27 [place] 627295-01-15 10:39:27* Sirisha Rosario MD - 09/17/2024 9:30 AM [employer] History of Present Illness Memory Loss Insomnia [...] Restart medication, re evaluate in 3-4 months. [facility]2025-01-15 10:39:27Upcoming Encounters Health Maintenance Due Date Last [...] on patient's age to complete this topic [facility]ennialPkpgnza3694-13-01 10:39:27 Diagnosis MCI (mild cognitive impairment) with memory loss - Primary Mild cognitive impairment, so stated [facility] CentennialAngxjjo1394-40-62 10:39:27 [facility]ennialHkvevjm6580-96-47 10:18:46 [facility]ennialVjhmtkv2911-99-49 10:18:46* [facility] HospitalZsbcnqw5970-14-62 10:18:31 Medication filled, please call patient and have them schedule a follow up. udy Garcia
[2025-05-21] MEDS ORDERED: IPRATROPIUM BROM 0.5MG/2.5ML ONE (08:36)
[2025-05-21] MEDS ORDERED: ALBUTEROL 2.5 MG/3 ML NEB SOL ONE (08:36)
[2025-05-21 08:38] LABS: Absolute Lymphocytes (CBC) 1.5 K/uL (0.7-4.9); Hematocrit 44.4 % (36.0-45.0); Hemoglobin 15.0 g/dL (12.0-15.0); MCH 30.3 pg (27.0-35.0); MCHC 33.8 g/dL (32.0-36.0); MCV 89.6 fL (80-100); MPV 7.4 fL (7.6-11.3); Nucleated RBC Absolute Count 0.0 (0-0); Nucleated Red Blood Cells % 0.1 % (0-0); RBC Red Blood Cell Count 4.96 M/uL (3.86-4.86); White Blood Count 6.70 thou/uL (4.3-10.9)
[2025-05-21 08:55] LABS: Influenza A Ag Negative; Influenza B Ag Negative; SARS-CoV-2 Antigen Rapid Res Negative (Negative)
[2025-05-21 08:57] LABS: Anion Gap 8.2 mEq/L (5.0-15.0); BUN Blood Urea Nitrogen 9.0 mg/dL (7-18); Glucose Level 112.0 mg/dL (74-106); Potassium 4.2 mEq/L (3.5-5.1); Troponin High Sensitivity 5.1 pg/mL (<58.9)
--- NOTE | 2025-05-21 09:06 | RAD REPORT ---
EXAMINATION: ONE VIEW CHEST XR CLINICAL INDICATION: Cough;Congestion TECHNIQUE: Frontal chest projection is submitted. Examination is limited by patient positioning and t echnique. COMPARISON: 01/30/2025 FINDINGS: The lungs are well inflated and clear. The heart is normal in size. No displaced fractures identified . Left-sided port catheter is tip in the right atrium. IMPRESSION: No acute intrathoracic abnormalities.
--- NOTE | 2025-05-21 09:34 | ER ---
Nurse's Notes [facility] Name: Milan Weir Age: 85 yrs Sex: Female : 1940 Arrival Date: 05/21/2025 Time: 08:09 Bed 5 Private MD: Diagnosis: Unspecified conjunctivitis;Cough Presentation: 05/21 08:17 Chief complaint: Patient states: Painful dry cough, congestion, SOB started yesterday ll1 morning. R eye pain and swelling started this morning. EMS states: EMS: [facility], temp 97.7. Coronavirus screen: Client denies travel out of the [place] in the last 14 days. congestion, cough unrelated to allergies, fatigue. Ebola Screen: Patient denies travel to an Ebola-affected area in the 21 days before illness onset. Mechanism of Injury: No Mechanism of Injury. The patient denies any loss of vision. Initial Sepsis Screen: Does the patient meet any 2 criteria? No. Patient's initial sepsis screen is negative. Does the patient have a suspected source of infection? No. Patient's initial sepsis screen is negative. Risk Assessment: Do you want to hurt yourself or someone else? Patient reports no desire to harm self or others. Onset of symptoms was May 20, 2025. 08:17 Method Of Arrival: EMS: [facility] ll1 08:17 Acuity: JARRETT 3 ll1 Triage Assessment: 08:20 General: Appears in no apparent distress. Behavior is calm, cooperative, appropriate ll1 for age, Reports fatigue for. Pain: Complains of pain in chest. Pain: Complains of pain in right eye Quality of pain is described as aching. EENT: Sclera/Cornea are reddened in outer aspect of conjuctiva of right eye, iris of right eye and inner aspect of conjuctiva of right eye Reports nasal congestion pain in right eye. Respiratory: Reports shortness of breath cough that is labored breathing pain with cough. Historical: - Allergies: 08:19 Codeine; ll1 08:19 Morphine; ll1 08:19 tramadol; ll1 08:19 Tylenol-Codeine; ll1 08:19 ACETAMINOPHEN; ll1 - PMHx: 08:19 Alzheimers; COPD; HARD OF HEARING; Hernia; Pancreatitis; ll1 - PSHx: 08:19 Adenoid excision; Appendectomy; breast implants; Cholecystectomy; double masectomy; ll1 stomach surgery to prevent vomiting; Tonsillectomy; Total abdominal hysterectomy; - Immunization history:: Adult Immunizations up to date. - Infectious Disease History:: Denies. - Social history:: Smoking status: Patient/guardian denies using tobacco. Screenin:46 [facility] ED Fall Risk Assessment (Adult) History of falling in the last 3 months, af3 including since admission No falls in past 3 months (0 pts) Confusion or Disorientation No (0 pts) Intoxicated or Sedated No (0 pts) Impaired Gait No (0 pts) Mobility Assist Device Used No (0 pt) Altered Elimination No (0 pt) Score/Fall Risk Level 0 - 2 = Low Risk Oriented to surroundings, Maintained a safe environment, Educated pt \T\ family on fall prevention, incl call for assistance when getting out of bed. Abuse screen: Denies threats or abuse. Denies injuries from another. Nutritional screening: No deficits noted. Tuberculosis screening: No symptoms or risk factors identified. Assessment: 08:39 General: Appears in no apparent distress. uncomfortable, well groomed, well developed, af3 Behavior is calm, cooperative, appropriate for age. Pain: Complains of pain in low back area. Neuro: Level of Consciousness is awake, alert, obeys commands, Oriented to person, place, time, situation, Appropriate for age. Cardiovascular: Patient's skin is warm and dry. Rhythm is sinus bradycardia. Respiratory: Airway is patent Respiratory effort is even, unlabored, Respiratory pattern is regular, symmetrical. 08:47 EENT: Eyes redness to both eyes. af3 09:20 Reassessment: No changes from previously documented assessment. Patient and/or family ll1 updated on plan of care and expected duration. Pain level reassessed. Patient is alert, oriented x 3, equal unlabored respirations, skin warm/dry/pink. Vital Signs: 08:17 BP 157 / 70; Pulse 62; Resp 17; Temp 98.5; Pulse Ox 100% on R/A; Weight 50.8 kg; Height ll1 5 ft. 3 in. ; Pain 9/10; 08:46 BP 131 / 110; Pulse 65; Resp 20; Pulse Ox 100% on R/A; af3 09:15 BP 137 / 70; Pulse 76; Resp 18; Pulse Ox 100% ; af3 08:17 Body Mass Index 19.84 (50.80 kg, 160.02 cm) ll1 08:17 Pain Scale: Adult ll1 Visual Acuity: 08:46 ; n/a ll1 ED Course: 08:16 Patient arrived in ED. ll1 08:17 Fran Canseco FNP-C is [facility]. dr5 08:17 Joanne Louis MD is Attending Physician. dr5 08:19 Triage completed. ll1 08:20 Arm band placed on Patient placed in an exam room, on a stretcher. ll1 08:28 Initial lab(s) drawn, by me, sent to lab. Missed attempt(s): 22 gauge in left ll1 antecubital area. Bleeding controlled, band aid applied, catheter tip intact. 08:34 COVID-19 Ag + Flu A+B Ag Sent. ss 08:38 Claudia Kebede, RN is Primary Nurse. af3 08:46 Patient has correct armband on for positive identification. Bed in low position. Call af3 light in reach. Provided Education on: meds, call light use . 08:46 No provider procedures requiring assistance completed. af3 08:54 XRAY Chest (1 view) In Process Unspecified. EDMS 11:01 Patient did not have IV access during this emergency room visit. af3 Administered Medications: 09:07 Drug: DuoNeb Nebulize (3:1) (2.5 mg - 0.5 mg) 3 ml Nebulizer once Route: Nebulizer; af3 09:20 Follow up: Response: No adverse reaction ll1 Medication: 08:47 VIS not applicable for this client. af3 Outcome: 09:33 Discharge ordered by . dr5 09:47 Patient left the ED. ss 11:01 Discharged to home ambulatory, af3 11:01 Condition: stable 11:01 Discharge instructions given to patient, Instructed on discharge instructions, follow up and referral plans. medication usage, Demonstrated understanding of instructions, follow-up care, medications, Prescriptions given X 3, Signatures: Dispatcher [employer] EDMS Dolores Hidalgo RN RN Zaira Zheng RN RN ll1 Claudia Kebede RN RN af3 Fran Canseco FNP-C PRIMARY CARE PHYSICIAN-Cdr5 Corrections: (The following items were deleted from the chart) 11:01 11:01 BP 137 / 70; Pulse 76bpm; Resp 18bpm; Pulse Ox 100%; af3 af3
--- NOTE | 2025-05-21 09:34 | EDPHYS ---
Physician Documentation [facility] Name: Milan Weir Age: 85 yrs Sex: Female : 1940 Arrival Date: 05/21/2025 Time: 08:09 Bed 5 Private MD: ED Physician Joanne Louis HPI: 05/21 10:16 This 85 yrs old Female presents to ER via EMS with complaints of Painful dr5 Cough, Eye Pain. 10:16 Onset: The symptoms/episode began/occurred acutely. Patient is an 85-year-old female dr5 with history of Alzheimer's, COPD, hernia, pancreatitis coming in with right eye pain and tearing as well as cough has been going on for a week. Patient was recently seen here for same symptoms but does not recall being here. Patient denies chest pain, shortness of breath, abdominal pain, nausea, vomiting, diarrhea, or fever.. Historical: - Allergies: 08:19 Codeine; ll1 08:19 Morphine; ll1 08:19 tramadol; ll1 08:19 Tylenol-Codeine; ll1 08:19 ACETAMINOPHEN; ll1 - PMHx: 08:19 Alzheimers; COPD; HARD OF HEARING; Hernia; Pancreatitis; ll1 - PSHx: 08:19 Adenoid excision; Appendectomy; breast implants; Cholecystectomy; double masectomy; ll1 stomach surgery to prevent vomiting; Tonsillectomy; Total abdominal hysterectomy; - Immunization history:: Adult Immunizations up to date. - Infectious Disease History:: Denies. - Social history:: Smoking status: Patient/guardian denies using tobacco. ROS: 10:16 Constitutional: as per hpi dr5 Exam: 10:16 Constitutional: This is a well developed, well nourished patient who is awake, alert, dr5 and in no acute distress. Head/Face: Normocephalic, atraumatic. Eyes: Pupils equal round and reactive to light, extra-ocular motions intact. Lids and lashes normal. Conjunctiva and sclera are non-icteric and not injected. Cornea within normal limits. Periorbital areas with no swelling, redness, or edema. Neck: Trachea midline, no thyromegaly or masses palpated, and no cervical lymphadenopathy. Supple, full range of motion without nuchal rigidity, or vertebral point tenderness. No Meningismus. Chest/axilla: Normal chest wall appearance and motion. Nontender with no deformity. No lesions are appreciated. Cardiovascular: Regular rate and rhythm with a normal S1 and S2. Normal PMI, no JVD. No pulse deficits. Abdomen/GI: Soft, non-tender, non-distended Back: No spinal tenderness. No costovertebral tenderness. Full range of motion. Skin: Warm, dry with normal turgor. Normal color with no rashes, no lesions, and no evidence of cellulitis. MS/ Extremity: Pulses equal, no cyanosis. Neurovascular intact. Full, normal range of motion. Neuro: Awake and alert, GCS 15, oriented to person, place, time, and situation. Cranial nerves II-XII grossly intact. Motor strength 5/5 in all extremities. Sensory grossly intact. Cerebellar exam normal. Normal gait. 10:16 Respiratory: the patient does not display signs of respiratory distress, Respirations: normal, Breath sounds: wheezing: expiratory that is mild, is heard in the left posterior lower lobe, right posterior middle lobe and right posterior lower lobe, Respiratory rate: 20 Vital Signs: 08:17 BP 157 / 70; Pulse 62; Resp 17; Temp 98.5; Pulse Ox 100% on R/A; Weight 50.8 kg; Height ll1 5 ft. 3 in. ; Pain 9/10; 08:46 BP 131 / 110; Pulse 65; Resp 20; Pulse Ox 100% on R/A; af3 09:15 BP 137 / 70; Pulse 76; Resp 18; Pulse Ox 100% ; af3 08:17 Body Mass Index 19.84 (50.80 kg, 160.02 cm) ll1 08:17 Pain Scale: Adult ll1 Visual Acuity: 08:46 ; n/a ll1 MDM: 08:17 Medical Screening Exam initiated dr5 10:16 Differential Diagnosis: Bronchitis Influenza Upper Respiratory Infection Sinusitis dr5 Other Conjunctivitis. Data reviewed: vital signs, nurses notes, lab test result(s), cardiac enzymes, troponin i, CBC, white blood cell count, hemoglobin, hematocrit, platelets, electrolytes, sodium, potassium, chloride, serum bicarbonate, BUN, creatinine, serum glucose, Flu: negative COVID-negative, EKG, radiologic studies, plain films. Consideration of Admission/Observation Escalation of care including admission/observation considered. Escalation considered patient found to have pneumonia or elevated troponin. I considered the following discharge prescriptions or medication management in the emergency department I discussed and recommended Over The Counter medications, Medications were administered in the Emergency Department. See MAR. Independent interpretation of the following test(s) in the Emergency Department X-Ray: My interpretation is Independent interpretation of x-ray does not reveal pneumonia. Care significantly affected by the following chronic conditions: Alzheimer's, COPD, hernia, pancreatitis. Care significantly affected by the following Social Determinants of Health: Poor access to healthcare and/or lack of insurance, Poor access to transportation, Problems related to employment. Counseling: I had a detailed discussion with the patient and/or guardian regarding the historical points, exam findings, and any diagnostic results supporting the discharge/admit diagnosis, the presence of at least one elevated blood pressure reading (>120/80) during this emergency department visit, lab results, radiology results, the need for outpatient follow up, for definitive care, a family practitioner, to return to the emergency department if symptoms worsen or persist or if there are any questions or concerns that arise at home. Medication response: Response to treatment: the patient's symptoms have resolved after treatment, the patient's condition has returned to base line, the patient is now symptom free. Special discussion: I discussed with the patient/guardian in detail that at this point there is no indication for admission to the hospital. It is understood, however, that if the symptoms persist or worsen the patient needs to return immediately for re-evaluation. Based on the history and exam findings, there is no indication for further emergent testing or inpatient evaluation. I discussed with the patient/guardian the need to see the primary care provider for further evaluation of the symptoms. ED course: Patient reports she is ready be discharged. I explained all labs and chest x-ray results to patient. Will give patient eyedrops for possible conjunctivitis. Patient states that he will follow-up primary care doctor. Patient reports that she is in a call a taxi and go. Patient speaking in full sentences without distress. Lungs are clear on repeat auscultation after DuoNeb.. 05/21 08:26 Order name: COVID-19 Ag + Flu A+B Ag; Complete Time: 08:59 dr5 05/21 08:26 Order name: Basic Metabolic Panel; Complete Time: :59 dr5 05/21 08:26 Order name: CBC with Diff; Complete Time: 08:40 dr5 05/21 08:26 Order name: Troponin HS; Complete Time: 08:59 dr5 05/21 08:26 Order name: XRAY Chest (1 view); Complete Time: 09:13 dr5 05/21 08:26 Order name: Cardiac monitoring; Complete Time: 08:39 dr5 05/21 08:26 Order name: EKG - Nurse/Tech; Complete Time: 08:39 dr5 05/21 08:26 Order name: IV Saline Lock; Complete Time: 08:39 dr5 05/21 08:26 Order name: Labs collected and sent; Complete Time: 08:34 dr5 05/21 08:26 Order name: O2 Per Protocol; Complete Time: 08:34 dr5 05/21 08:26 Order name: O2 Sat Monitoring; Complete Time: :34 dr5 EC:36 Rate is 58 beats/min. Rhythm is regular. QRS [place] is Normal. [place] interval is normal at dr5 140 msec. QRS interval is normal at 64 msec. QT interval is normal at 424 msec. Clinical impression: Normal ECG and Sinus bradycardia. Administered Medications: 09:07 Drug: DuoNeb Nebulize (3:1) (2.5 mg - 0.5 mg) 3 ml Nebulizer once Route: Nebulizer; af3 09:20 Follow up: Response: No adverse reaction ll1 Disposition: 19:13 Co-signature as Attending Physician, Joanne Louis MD I reviewed the patient's care gb1 provided by the Advanced Practice Provider and agree with the diagnosis and treatment plan. Disposition Summary: 05/21/25 09:33 Discharge Ordered Notes: Location: Home dr5 Condition: Stable dr5 Diagnosis - Unspecified conjunctivitis dr5 - Cough dr5 Followup: dr5 - With: Emergency Department - When: As needed - Reason: Worsening of condition Followup: dr5 - With: Private Physician - When: 1 - 2 days - Reason: Recheck today's complaints, Continuance of care, Re-evaluation by your physician Discharge Instructions: - Discharge Summary Sheet dr5 - Bacterial Conjunctivitis, Adult dr5 - Cough, Adult dr5 Forms: - Medication Reconciliation Form dr5 - Antibiotic Education dr5 - Patient Portal Instructions dr5 - Leadership Thank You Letter dr5 Prescriptions: - Bromfed DM 2-30-10 mg/5 mL Oral syrup - administer 10 milliliter ORAL route every 12 hours as needed for sinus dr5 symptoms; 240 milliliter; Refills: 0, Product Selection Permitted - Cephalexin 500 mg Oral Capsule - take 1 capsule ORAL route every 12 hours for 10 days; 20 capsule; Refills: 0, dr5 Product Selection Permitted - Ocuflox 0.3 % Ophthalmic drops - instill 2 drops OPHTHALMIC route every 6 hours for 7 days; 30 milliliter; dr5 Refills: 0, Product Selection Permitted Signatures: Dispatcher [employer] Zaira Lawson RN RN ll1 Joanne Louis MD MD gb1 Claudia Kebede RN RN af3 Fran Canseco, [employer]-C HEART SPECIALIST-Cdr5
[2025-05-21 12:31] VITALS: BP 131/110; TEMP 98.5; O2SAT 100
== END 2025-05-21 09:47 | disposition home or self-care (01) ==
LOC: ER 08:09
DX: R05.9 Cough, unspecified (principal); H10.9 Unspecified conjunctivitis; J44.9 Chronic obstructive pulmonary disease, unspecified; Z11.52 Encounter for screening for COVID-19; Z98.82 Breast implant status
CPT/HCPCS: 93005; 85025; 80048; 36415; 84484; 71045; 99284; 87428; J7613; J7644

== ENCOUNTER 2025-06-19 07:41 | Observation (INO) | payer OTHER ==
--- OUTSIDE RECORDS SUMMARY | 2025-06-19 07:46 | XMS REPORT | Continuity of Care Document ---
Author Name Unknown Address [address] [facility] [place] [address] [facility] [place] Address 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 Cervical spondylosi [...] known active problems Disease [facility] Acid reflux Acid reflux Disease Resolve [...] DRUG INGREDI Active N/V - 00:00: 00 [facility] Codeine Propensi ty to adverse reaction s Active Nausea and/or Vomiting - 00:00: 00 [facility] Acetamin ophen Propensi ty to adverse reaction s Active GI intolerance 10-08 00:00: 00 Other Reaction( s): Not available Layton roldan [facility] Codeine Allergy to substanc e Active GI intolerance, Nausea And Vomiting 10-08 00:00: 00 Other Reaction( s): Not available Layton roldan Jose [facility] NO KNOWN ALLERGIE S Drug Class Active [facility] Social History Social Habit Start Date Stop Date Quantity Comments Source Gender identity 2023-11-25 02:02:51 Identifies as female gender (finding) [facility] ASSERTION Possible [facility] History of tobacco use Passive smoker [facility] Sexual orientation [facility] Alcoholic beverage intake 2025-04-14 00:00:00 2025-04-14 00:00:00 Lifetime non-drinker (finding) [facility] History of Social function 2025-04-14 00:00:00 2025-04-14 00:00:00 [facility] Tobacco use and exposure 2024-09-17 00:00:00 2024-09-17 00:00:00 Smokeless tobacco non-user [facility] Sex 2023-11-25 02:02:51 2023-11-25 02:02:51 Female (finding) [facility] Exposure to SARS-CoV-2 (event) 2022-09-08 00:00:00 2022-09-18 09:01:00 Not sure [facility] Sex Assigned At 1940 00:00:00 1940 00:00:00 [facility] Smoking Status Start Date Stop Date Source Tobacco smoking consumption unknown [facility] Ex-smoker 2024-09-17 00:00:00 2024-09-17 00:00:00 [facility] Medications Ordered Medication Name Filled Medication Name Start Date Stop Date Current Medication? Ordering Clinician Indication Dosage Frequency Signature (SIG) Comments Components Source memantine (Namenda) 5 MG tablet memantine (Namenda) 5 MG tablet 05-18 00:00: 00 Yes TAKE ONE (1) TABLET(S) BY MOUTH TWICE A DAY (MORNING AND EVENING). Layton Garcia [facility] mirtazapine (Remeron) 15 MG tablet [...] DAILY., # 30 ea, 3 Refill(s), Pharmacy: [place] [id number], 162.56, cm, 06/14/23 9:48:00 CDT, Height, 61.023, kg, 06/14/23 9:48:00 CDT, Weight Darlinval Garcia Epic memantine (Namenda) 5 MG tablet memantine (Namenda) 5 MG tablet 2022-09 1- 00:00: 00 09-17 00:00 :00 No See Instructio ns, TAKE ONE (1) TABLET(S) BY MOUTH TWICE A DAY., # 60 ea, 3 Refill(s), Pharmacy: [place] [address], 162.56, cm, 06/14/23 9:48:00 CDT, Height, 61.023, kg, 06/14/23 9:48:00 CDT, Weight Memval jamar Jose Epic omeprazole (PriLOSEC) [address] capsule omeprazole (PriLOSEC) [address] capsule 2023-0 6-08 00:00: 00 Yes TAKE ONE (1) CAPSULE(S) BY MOUTH DAILY NEEDED. Layton roldan [facility] No known medications -16 09:05: 08 No No known medication s [facility] gadoteridol (PROHANCE-1 5 mL) injection 0.2 mL/kg 2019-09 21:45: 00 08-12 22:15 :00 No .2mL/kg 0.2 mL/kg, Intravenou s, ONCE, 1 dose, Leni 08/12/20 at 1545, Routine [facility] Vital Signs Vital Name Observation Time Observation Value Comments Ashley paul Systolic blood pressure 2025-04-14 09:50:00 129 mm[Hg] [facility] Diastolic blood pressure 2025-04-14 09:50:00 83 mm[Hg] [facility] Heart rate 2025-04-14 09:50:00 78 /[facility] temperature 2025-04-14 09:50:00 36.78 Keesha [facility] Respiratory rate 2025-04-14 09:50:00 16 /min [facility] Body height 2025-04-14 09:50:[address] [facility] Body weight 2025-04-14 09:50:[address] [facility] BMI 2025-04-14 09:50:00 20.92 kg/m2 [facility] Oxygen saturation in Arterial blood by Pulse oximetry 2025-04-14 09:50:00 96 /min [facility] Systolic blood pressure 2025-04-14 09:50:00 129 mm[Hg] [facility] Diastolic blood pressure 2025-04-14 09:50:00 83 mm[Hg] [facility] Heart rate 2025-04-14 09:50:00 78 /min [facility] Body temperature 2025-04-14 09:50:00 36.78 Keesha [facility] Respiratory rate 2025-04-14 09:50:00 16 /min [facility] Body height 2025-04-14 09:50:[address] [facility] Body weight 2025-04-14 09:50:00 54.432 kg Miguel A rial Jose Epic BMI 2025-04-14 09:50:00 20.92 kg/m2 Miguel A rial Jose [facility] Oxygen saturation in Arterial blood by Pulse oximetry 2025-04-14 09:50:00 96 /min [facility] Systolic blood pressure 2024-12-16 09:27:00 152 mm[Hg] [facility] Diastolic blood pressure 2024-12-16 09:27:00 92 mm[Hg] [facility] Heart rate 2024-12-16 09:27:00 66 /min [facility] [place] [facility] Body temperature 2024-12-16 09:27:00 36.67 [facility] Respiratory rate 2024-12-16 09:27:00 16 /min [facility] Body height 2024-12-16 09:27:00 161.3 cm Miguel A rial Jose [facility] Body weight 2024-12-16 09:27:00 55.067 kg Miguel A rial [place] [facility] BMI 2024-12-16 09:27:00 21.17 kg/m2 Miguel A rial [place] [facility] Oxygen saturation in Arterial blood by Pulse oximetry 2024-12-16 09:27:00 97 /min [facility] Systolic blood pressure 2024-12-16 09:27:00 152 mm[Hg] [facility] Diastolic blood pressure 2024-12-16 09:27:00 92 mm[Hg] [facility] Heart rate 2024-12-16 09:27:00 66 /min [facility] Jose [facility] Body temperature 2024-12-16 09:27:00 36.67 [facility] Epic Respiratory rate 2024-12-16 09:27:00 16 /min [facility] Body height 2024-12-16 09:27:00 161.3 cm Miguel A rial [place] [facility] Body weight 2024-12-16 09:27:00 55.067 kg Miguel A rial [place] [facility] BMI 2024-12-16 09:27:00 21.17 kg/m2 Miguel A rial Jose Epic Oxygen saturation in Arterial blood by Pulse oximetry 2024-12-16 09:27:00 97 /min [facility] Systolic blood pressure 2024-09-17 10:05:00 142 mm[Hg] [facility] Diastolic blood pressure 2024-09-17 10:05:00 82 mm[Hg] [facility] Heart rate 2024-09-17 10:05:00 83 /min [facility] Body temperature 2024-09-17 10:05:00 36.28 Keesha [facility] Respiratory rate 2024-09-17 10:05:00 16 /min [facility] Body height 2024-09-17 10:05:00 162.6 cm Miguel A rial Jose Epic Body weight 2024-09-17 10:05:00 51.256 kg Miguel A rial [place] [facility] BMI 2024-09-17 10:05:00 19.40 kg/m2 Miguel A rial Jose [facility] Oxygen saturation in Arterial blood by Pulse oximetry 2024-09-17 10:05:00 97 /min [facility] Systolic blood pressure 2024-09-17 10:05:00 142 mm[Hg] [facility] Diastolic blood pressure 2024-09-17 10:05:00 82 mm[Hg] [facility] Heart rate 2024-09-17 10:05:00 83 /min Memor ial Jose [facility] Body temperature 2024-09-17 10:05:00 36.28 Keesha [facility] Respiratory rate 2024-09-17 10:05:00 16 /min [facility] Body height 2024-09-17 10:05:00 162.6 cm Miguel A rial [place] [facility] Body weight 2024-09-17 10:05:00 51.256 kg Miguel A rial Jose Epic BMI 2024-09-17 10:05:00 19.40 kg/m2 Miguel A rial [place] [facility] Oxygen saturation in Arterial blood by Pulse oximetry 2024-09-17 10:05:00 97 /min [facility] Heart rate 2022-09-18 16:44:00 62 /min [facility] Respiratory rate 2022-09-18 16:44:00 20 /min [facility] Oxygen saturation in Arterial blood by Pulse oximetry 2022-09-18 16:44:00 99 /min [facility] Systolic blood pressure 2022-09-18 16:00:18 153 mm[Hg] [facility] Diastolic blood pressure 2022-09-18 16:00:18 86 mm[Hg] [facility] Body temperature 2022-09-18 15:03:00 36.89 Keesha [facility] Body height 2022-09-18 15:03:00 160 cm [facility] Body weight 2022-09-18 15:03:00 53.524 kg [facility] BMI 2022-09-18 15:03:00 20.90 kg/m2 [facility] Procedures Procedure Date / Time Performed Performing Clinicia n Source CT TRAUMA HEAD WO CONTRAST 2022-09-18 15:55:32 Niecy Ball [facility] CT TRAUMA CERVICAL SPINE WO CONTRAST 2022-09-18 15:55:32 Niecy Ball [facility] XR SHOULDER <2 VW LEFT 2022-09-18 15:40:40 Ashley Ball [facility] NOTICE OF PRIVACY PRACTICES 2022-09-18 14:59:10 Doctor Unassigned, [place] [facility] CONSENT/REFUSAL FOR DIAGNOSIS AND TREATMENT 2022-09-18 14:58:45 Doctor Unassigned, [place] [facility] MR ABDOMEN W WO CONTRAST MRCP 2020-08-12 22:16:07 Requisition, Paper [facility] NOTICE OF PRIVACY PRACTICES 2020-08-12 21:10:37 Doctor Unassigned, [place] [facility] CONSENT/REFUSAL FOR DIAGNOSIS AND TREATMENT 2020-08-12 21:10:07 Doctor Unassigned, [place] [facility] ASSIGNMENT OF BENEFITS 2020-08-12 21:09:46 Docto r Unassigned, [place] [facility] Encounters Start Date/Time End Date/Time Encounter Type Admission Type Attending Clinicians Care Facility Care Department Encounter ID Source 2024-10-08 09:08:00 Outpatient [facility] [id number] [facility] 2025-05-17 00:00:00 2025-05-18 11:40:41 Sirisha Patel [id number] [facility] 2025-04-14 09:45:00 2025-04-14 10:06:32 Office Visit Sirisha Rosario [id number] [facility] 2025-04-14 09:37:52 2025-04-14 10:06:32 Outpatient Elective SIRISHA ROSARIO M[facility]OUT M[facility]OUT [id number] [facility] 2025-03-30 10:22:28 2025-03-30 10:22:28 Outpatient [facility] [id number] Todd Cervantes 2024-12-16 09:30:00 2024-12-16 09:47:39 Office Visit Sirisha Rosario [place] [id number] [id number] [id number] [facility] 2024-12-16 09:04:18 2024-12-16 09:47:39 Outpatient Elective SIRISHA ROSARIO MHEOUT MHEOUT [id number] MHEOUT 2024-10-24 17:18:41 2024-10-24 17:18:41 Outpatient [facility] [id number] Todd Cervantes 2024-10-08 14:25:58 2024-10-08 14:25:58 Outpatient [facility] [id number] Todd Cervantes 2024-09-17 09:39:26 2024-09-17 10:27:49 Outpatient Elective SIRISHA ROSARIO MHEOUT MHEOUT [id number] [facility]OUT 2024-09-17 09:30:00 2024-09-17 10:27:49 Office Visit Sirisha Rosario [id number] [id number] [id number] Layton roldan [facility] 2024-04-17 00:00:00 2024-04-18 10:18:36 Sirisha Patel [id number] [id number] 8.2.7.2.686 [id number] Layton Garcia [facility] 2022-09-18 09:05:00 2022-09-18 10:46:00 Emergency X NIECY BALL [facility] ERT [id number] [facility] 2022-09-18 09:05:00 2022-09-18 10:46:00 Emergency Niecy Ball [facility] [id number] 350.1.13.10 4.2.7.2.686 [id number] [facility] 2020-08-12 15:11:31 2020-08-12 23:59:00 Outpatient R RADIOLOGY [facility] [id number] [facility] 2020-08-12 15:00:00 2020-08-12 23:59:00 Hospital Encounter Radiology [facility] [id number] [id number] [id number] [id number] [facility] 2020-08-12 15:00:00 2020-08-12 23:59:00 Hospital Encounter Radiology [facility] [id number] 350.1.13.10 4.2.7.2.686 [id number] Results Test Description Test Time Test Comments [...] without and with contrast including MRCP studies. [facility], Radiant Results Inft User - 08/12/2020 4:29 [...] including MRCP studies. [facility]2016-12-27 09:33:00* Test Item Value Reference Range Interpretation Comme nts BUN (test code = BUN) 16.0 mg/dl 6.0-17.0 [facility] Notes Date/Time Note Provider Source 2025-05-18 11:40:50 [facility]2025-09-15 11:40:50Upcoming Encounters Health Maintenance Due Date [...] on patient's age to complete this topic [facility]pnyvoi[facility]187[facility]09[facility]57 11:40:50 [facility]neScgvpia9462-80-98 18:21:56* [facility]neWeddcsm7422-19-61 18:21:56 [facility]neAdtcgdr4078-32-84 18:21:56* Sirisha Rosario MD - 04/14/2025 9:45 [...] apparent weakness or pronator drift. Coordination: Right: Xsefni-hc-yxzj normal. Rapid alternating movement is normal. Left: Npoxyz-vl-suco normal. Rapid alternating movement is normal. Gait: [...] Ongoing difficulty with sleep onset and maintenance. [facility]2025-08-12 18:21:56Upcoming Encounters Health Maintenance Due Date Last [...] on patient's age to complete this topic [facility]neAinkmxc6947-67-33 18:21:56 Diagnosis MCI (mild cognitive impairment) with memory loss - Primary Mild cognitive impairment, so stated Insomnia, unspecified type [facility]neBzvzums9192-39-39 18:21:56 [facility]neRkrcxtg5125-16-33 18:21:56* [facility]nePrgzpbc6081-55-80 18:21:56 [facility]neVlrmvdh2362-74-23 18:21:56* Sirisha Rosario MD - 04/14/2025 9:45 [...] apparent weakness or pronator drift. Coordination: Right: Enbxin-fv-rbcj normal. Rapid alternating movement is normal. Left: Exmnbc-rd-ewgk normal. Rapid alternating movement is normal. Gait: [...] Ongoing difficulty with sleep onset and maintenance. [facility]2025-08-12 18:21:56Upcoming Encounters Health Maintenance Due Date Last [...] on patient's age to complete this topic [facility]neHvdqomz6925-25-42 18:21:56 Diagnosis MCI (mild cognitive impairment) with memory loss - Primary Mild cognitive impairment, so stated Insomnia, unspecified type [facility]neLalhurw3109-11-31 18:21:56 [facility]neFlexnyz5589-81-88 10:03:52Upcoming Encounters Health Maintenance Due Date Last [...] on patient's age to complete this topic [facility]neKllfidb4860-85-85 10:03:52 Diagnosis MCI (mild cognitive impairment) with memory loss - Primary Mild cognitive impairment, so stated [facility]neCeoezkm9949-89-88 10:03:52 [facility]neFksokmi7490-44-71 10:03:52* [facility]neNazmvqp5858-53-97 10:03:52 [facility]neIuwxgpj9605-63-95 10:03:52* Sirisha Rosario MD - 12/16/2024 9:30 [...] mouth at bedtime. Stable, continue present medications. [facility]neVdulitc2436-37-64 10:03:51* Sirisha Rosario MD - 12/16/2024 9:30 [...] mouth at bedtime. Stable, continue present medications. [facility]2025-04-15 10:03:51Upcoming Encounters Health Maintenance Due Date Last [...] on patient's age to complete this topic [facility]neEbmombq5318-23-30 10:03:51 Diagnosis MCI (mild cognitive impairment) with memory loss - Primary Mild cognitive impairment, so stated [facility]neVyqrtrp0847-15-38 10:03:51 [facility]neTnewevr1401-69-49 10:03:51* [facility]neUzvyjxx4688-60-36 10:03:51 [facility]neLdbgsfz7693-94-04 10:39:27* [facility]neOhpkmfd3163-52-39 10:39:27 [facility]neVgzlxts9599-94-33 10:39:27* Sirisha Rosario MD - 09/17/2024 9:30 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 [facility]2025-01-15 10:39:27Upcoming Encounters Health Maintenance Due Date [...] on patient's age to complete this topic [facility]neIpjldlp8851-55-54 10:39:27 Diagnosis MCI (mild cognitive impairment) with memory loss - Primary Mild cognitive impairment, so stated [facility]neSelehvb3687-38-63 10:39:27 [facility]neRuqytcf1679-34-17 10:39:27* [facility]neKpcuawd9117-31-17 10:39:27 [facility]neMmflwdy7463-29-99 10:39:27* Sirisha Rosario MD - 09/17/2024 9:30 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 [facility]2025-01-15 10:39:27Upcoming Encounters Health Maintenance Due Date [...] on patient's age to complete this topic [place] [id number] 10:39:27 Diagnosis MCI (mild cognitive impairment) with memory loss - Primary Mild cognitive impairment, so stated [facility]neTnlmgps2367-49-96 10:39:27 [place] [id number] 10:18:46 [facility]neKwxwwwz5487-10-41 10:18:46* [facility]burneRchlixy3977-72-18 10:18:31 Medication filled, please call patient and have them schedule a follow up. Rudy [facility]
[2025-06-19] MEDS ORDERED: IPRATROPIUM BROM 0.5MG/2.5ML ONE (08:21)
[2025-06-19] MEDS ORDERED: METHYLPREDNISOLONE 125 MG INJ ONE (08:21)
[2025-06-19] MEDS ORDERED: LEVALBUTEROL 1.25 MG/3 ML NEB ONE (08:22)
[2025-06-19] MEDS ORDERED: FAMOTIDINE 20 MG/2 ML VIAL IV ONE (08:22)
[2025-06-19] MEDS ORDERED: NA CHLORIDE 0.9% 1,000 ML ONE (08:23)
[2025-06-19] MEDS ORDERED: Levofloxacin500mg IV 500 MG/100 ML BAG IV ONE (08:23)
--- NOTE | 2025-06-19 08:56 | RAD REPORT ---
Procedure: Chest Single View HISTORY: Cough COMPARISON: May 2025 FINDINGS: The lungs appear clear of acute infiltrate. No significant pleural effusion noted. The heart is normal size.. Central venous catheter in place. IMPRESSION: No acute abnormality is displayed.
--- NOTE | 2025-06-19 09:12 | EDPHYS ---
Physician Documentation [facility] Name: Milan Weir Age: 85 yrs Sex: Female : 1940 Arrival Date: 06/19/2025 Time: 07:41 Bed 19 Private MD: ED Physician Sean Seymour HPI: 06/19 09:05 This 85 yrs old Female presents to ER via EMS with complaints of copd nargis exacerbation. 09:05 The patient has shortness of breath with light activity. Onset: The symptoms/episode nargis began/occurred 3 day(s) ago. Duration: The symptoms are continuous, and are steadily getting worse. The patient's shortness of breath is aggravated by coughing, exertion, light activity, prone position. The patient or guardian reports airway noise, cough, difficulty breathing. Modifying factors: The symptoms are alleviated by elevating head, remaining still, the symptoms are aggravated by activity, hot environment, lying flat. Associated signs and symptoms: Pertinent positives: non-productive cough. Severity of symptoms: At their worst the symptoms were moderate in the emergency department the symptoms are unchanged. Associated signs and symptoms: Pertinent positives:. Historical: - Allergies: 08:05 ACETAMINOPHEN; kb4 08:05 Codeine; kb4 08:05 Morphine; kb4 08:05 tramadol; kb4 08:05 Tylenol-Codeine; kb4 - PMHx: 08:05 Alzheimers; COPD; HARD OF HEARING; Pancreatitis; kb4 - Immunization history:: Adult Immunizations up to date. - Infectious Disease History:: Denies. - Social history:: Smoking status: Patient denies any tobacco usage or history of. ROS: 09:06 Constitutional: Negative for fever, chills, and weight loss, Eyes: Negative for injury, nargis pain, redness, and discharge, ENT: Negative for injury, pain, and discharge, Neck: Negative for injury, pain, and swelling, Cardiovascular: Negative for chest pain, palpitations, and edema, Abdomen/GI: Negative for abdominal pain, nausea, vomiting, diarrhea, and constipation, Back: Negative for injury and pain, : Negative for injury, bleeding, discharge, and swelling, MS/Extremity: Negative for injury and deformity, Skin: Negative for injury, rash, and discoloration, Neuro: Negative for headache, weakness, numbness, tingling, and seizure, Psych: Negative for depression, anxiety, suicide ideation, homicidal ideation, and hallucinations, Allergy/Immunology: Negative for hives, rash, and allergies, Endocrine: Negative for neck swelling, polydipsia, polyuria, polyphagia, and marked weight changes, 09:06 Respiratory: Positive for cough, shortness of breath, wheezing, expiratory, Exam: 09:06 Constitutional: This is a well developed, well nourished patient who is awake, alert, nargis and in no acute distress. Head/Face: Normocephalic, atraumatic. Eyes: Pupils equal round and reactive to light, extra-ocular motions intact. Lids and lashes normal. Conjunctiva and sclera are non-icteric and not injected. Cornea within normal limits. Periorbital areas with no swelling, redness, or edema. ENT: Nares patent. No nasal discharge, no septal abnormalities noted. Tympanic membranes are normal and external auditory canals are clear. Oropharynx with no redness, swelling, or masses, exudates, or evidence of obstruction, uvula midline. Mucous membranes moist. Neck: Trachea midline, no thyromegaly or masses palpated, and no cervical lymphadenopathy. Supple, full range of motion without nuchal rigidity, or vertebral point tenderness. No Meningismus. Chest/axilla: Normal chest wall appearance and motion. Nontender with no deformity. No lesions are appreciated. Cardiovascular: Regular rate and rhythm with a normal S1 and S2. No gallops, murmurs, or rubs. Normal PMI, no JVD. No pulse deficits. Abdomen/GI: Soft, non-tender, with normal bowel sounds. No distension or tympany. No guarding or rebound. No evidence of tenderness throughout. Back: No spinal tenderness. No costovertebral tenderness. Full range of motion. Female : Normal external genitalia. Skin: Warm, dry with normal turgor. Normal color with no rashes, no lesions, and no evidence of cellulitis. MS/ Extremity: Pulses equal, no cyanosis. Neurovascular intact. Full, normal range of motion., bilateral aka Neuro: Awake and alert, GCS 15, oriented to person, place, time, and situation. Cranial nerves II-XII grossly intact. Motor strength 5/5 in all extremities. Sensory grossly intact. Cerebellar exam normal. Normal gait. Psych: Awake, alert, with orientation to person, place and time. Behavior, mood, and affect are within normal limits. 09:06 ECG was reviewed by the Attending Physician. Vital Signs: 08:03 BP 163 / 91; Pulse 91; Resp 20; Temp 98.2; Pulse Ox 99% on R/A; Weight 51.71 kg; Height kb4 5 ft. 3 in. ; 10:30 BP 128 / 50; Pulse 81; Resp 14; Temp 98.1; Pulse Ox 100% on R/A; Pain 4/10; zm 08:03 Body Mass Index 20.19 (51.71 kg, 160.02 cm) kb4 10:30 Pain Scale: Adult zm [place] Coma Score: 10:30 Eye Response: spontaneous(4). Motor Response: obeys commands(6). Verbal Response: zm oriented(5). Total: 15. MDM: 07:45 Medical Screening Exam initiated nargis 09:08 Differential diagnosis: Anemia Anxiety Reaction asthma, CHF exacerbation, Chronic nargis Obstructive Pulmonary Disease obstructed airway, tracheal injury, bronchitis, flu, URI. Antibiotic administration: Levaquin given. Immunization status: Pneumococcal vaccine: within last 5 years. Influenza vaccine: within last 5 years. Data reviewed: vital signs, nurses notes, lab test result(s), EKG, radiologic studies. Consideration of Admission/Observation Escalation of care including admission/observation considered. I considered the following discharge prescriptions or medication management in the emergency department Medications were administered in the Emergency Department. See MAR. Independent interpretation of the following test(s) in the Emergency Department EKG: See my EKG interpretation above. Test considered but Not performed: CT: no ct chest. Historians other than the Patient: EMS: ems well informed. Care significantly affected by the following chronic conditions: Hypertension, Chronic Obstructive Pulmonary Disease. 10:22 ED course: Lactic Acid came back at 2.5. I let admitting physician know and received dr5 confirmation of acknowledgment of critical value.. 06/19 07:47 Order name: Basic Metabolic Panel; Complete [facility]: 10:16 [facility] 06/19 07:47 Order name: CBC with Diff; Complete Time: 10:16 [facility] 06/19 07:47 Order name: LFT's; Complete Time: 10:16 [facility] 06/19 07:47 Order name: Magnesium; Complete Time: 10:16 [facility] 06/19 07:47 Order name: NT PRO-BNP; Complete Time: 10:16 [facility] 06/19 07:47 Order name: PT-INR; Complete Time: 10:16 [facility] 06/19 07:47 Order name: Troponin HS; Complete Time: 10:16 [facility] 06/19 07:47 Order name: Blood Culture Adult (2) [facility] 06/19 07:47 Order name: Lactate w/ 2H reflex if indic.; Complete Time: 10:35 [facility] 06/19 07:47 Order name: COVID-19 Ag + Flu A+B Ag; Complete Time: 10:35 [facility] 06/19 10:18 Order name: Ghost Lactate-NO COLLECT Timer [facility] 06/19 10:28 Order name: Basic Metabolic Panel EDMS 06/19 10:28 Order name: Basic Metabolic Panel EDMS 06/19 10:28 Order name: Basic Metabolic Panel EDMS 06/19 10:28 Order name: Lactate w/ 2H reflex if indic. EDMS 06/19 10:29 Order name: CBC with Automated Diff EDMS 06/19 10:29 Order name: CBC with Automated Diff EDMS 06/19 10:29 Order name: CBC with Automated Diff EDMS 06/19 10:29 Order name: Lactate w/ 2H reflex if indic. EDMS 06/19 10:29 Order name: Magnesium EDMS 06/19 10:29 Order name: Magnesium EDMS 06/19 10:29 Order name: Phosphorus EDMS 06/19 10:29 Order name: Phosphorus EDMS 06/19 10:29 Order name: T4 Free EDMS 06/19 10:29 Order name: T4 Free EDMS 06/19 10:29 Order name: Thyroid Stimulating Hormone EDMS 06/19 10:29 Order name: Thyroid Stimulating Hormone EDMS 06/19 10:29 Order name: Sputum Culture EDMS 06/19 10:30 Order name: Potassium EDMS 06/19 07:47 Order name: XRAY Chest (1 view); Complete Time: 09:48 [facility] 06/19 10:29 Order name: Patient Safety Orders [facility] 06/19 07:47 Order name: Cardiac monitoring; Complete Time: 09:42 [facility] 06/19 07:47 Order name: EKG - Nurse/Tech; Complete Time: 09:45 [facility] 06/19 07:47 Order name: IV Saline Lock; Complete Time: 09:42 [facility] 06/19 07:47 Order name: Labs collected and sent; Complete Time: 09:42 [facility] 06/19 07:47 Order name: O2 Per Protocol; Complete Time: :42 [facility] 06/19 07:47 Order name: O2 Sat Monitoring; Complete Time: :42 [facility] EC:06 Rate is 65 beats/min. Rhythm is regular. QRS [place] is Normal. [place] interval is normal. QRS nargis interval is normal. QT interval is normal. No Q waves. T waves are Normal. No ST changes noted. Clinical impression: NSR w/ Non-specific ST/T Changes and No evidence of ischemia. Interpreted by me. Reviewed by me. Administered Medications: 09:19 Drug: Levalbuterol Inhalation 3.75 mg Inhalation once Route: Inhalation; 4 10:38 Follow up: Response: No adverse reaction 09:19 Drug: Ipratropium Inhalation Aerosol 0.5 mg Inhalation once Route: [facility]; [facility] 10:38 Follow up: Response: No adverse reaction zm 09:41 Drug: MethylPrednisoLONE IVP 125 mg IVP once Route: IVP; Site: Port-a-cath; 10:38 Follow up: Response: No adverse reaction zm 09:41 Drug: NS 0.9% IV 1000 ml IV at 1 bolus Per protocol; to be given as a bolus over 60 zm minutes Route: IV; Rate: 1 bolus; Site: Port-a-cath; 11:12 Follow up: Response: No adverse reaction; IV Status: Completed infusion; IV Intake: zm 1000ml 09:41 Drug: Famotidine IVP 20 mg IVP once; dilute with 10 mL 0.9% NaCl; give over 2 minutes zm Route: IVP; Site: Port-a-cath; 10:38 Follow up: Response: No adverse reaction zm 09:41 Drug: levofloxacin IVPB 500 mg 100 ml IVPB once over 60 mins Volume: 100 ml; Route: zm IVPB; Infused Over: 60 mins; Site: Port-a-cath; 10:39 Follow up: Response: No adverse reaction; IV Status: Completed infusion; IV Intake: zm 100ml 10:45 Not Given (Physician Discretion): magnesium sulfate1 grams IVPB once over 1 hrs zm Disposition: 10:36 Critical Care:. [facility] 06/20 07:48 Co-signature as Attending Physician, Sean Seymour MD I agree with the assessment and [facility] plan of care. Disposition Summary: 06/19/25 09:12 Hospitalization Ordered Notes: Hospitalization Status: Inpatient Admission nargis Provider: Jose David Henley cha Location: Telemetry/MedSurg (Inpatient) nargis Condition: Fair nargis Problem: new nargis Symptoms: have improved nargis Bed/Room Type: Standard nargis Room Assignment: 203(06/19/25 10:27) eb Diagnosis - Dyspnea nargis - COPD/ Chronic obstructive pulmonary disease with (acute) exacerbation nargis Forms: - Medication Reconciliation Form nargis - SBAR form nargis - Leadership Thank You Letter nargis Critical care time excluding procedures: 06/19 10:36 Critical care time: Bedside Care: 25 minutes, Consultation: 10 minutes, Family nargis Intervention: 5 minutes. Total time: 40 minutes Signatures: Dispatcher [employer] EDMS Sean Seymour MD MD cha Botello, Elizabeth eb Martinez, Zaina, RN RN Fran Louis, BRASS BURNISHER-C BRASS BURNISHER-Cdr5 Cindy Jimenez RN RN kb4 Corrections: (The following items were deleted from the chart) 07:48 07:48 BASIC METABOLIC PANEL+C.LAB.BRZ ordered. EDMS EDMS 07:48 07:48 CBC+H.LAB.BRZ ordered. EDMS EDMS 07:48 07:48 HEPATIC FUNCTION+C.LAB.BRZ ordered. EDMS EDMS 07:48 07:48 MAGNESIUM+C.LAB.BRZ ordered. EDMS EDMS 07:48 07:48 PROBNP+C.LAB.BRZ ordered. EDMS EDMS 07:48 07:48 PROTIME (+INR)+COAG.LAB.BRZ ordered. EDMS EDMS 07:48 07:48 Troponin High Sensitivity+C.LAB.BRZ ordered. EDMS EDMS 07:48 07:48 BLOOD CULTURE*+BA.LAB.BRZ ordered. EDMS EDMS 07:48 07:48 LACTATE+C.LAB.BRZ ordered. EDMS EDMS 07:48 07:48 COVID-19 Ag + Flu A+B Ag+I.LAB.BRZ ordered. EDMS EDMS 07:48 07:48 Chest Single View+RAD.RAD.BRZ ordered. EDMS EDMS 08:06 08:05 PMHx: Hernia; kb4 kb4 08:06 08:05 PSHx: Adenoid excision; kb4 kb4 08:06 08:05 PSHx: Total abdominal hysterectomy; kb4 kb4 08:06 08:05 PSHx: Tonsillectomy; kb4 kb4 08:06 08:05 PSHx: double masectomy; kb4 kb4 08:06 08:05 PSHx: breast implants; kb4 kb4 08:06 08:05 PSHx: stomach surgery to prevent vomiting; kb4 kb4 08:06 08:05 PSHx: Appendectomy; kb4 kb4 08:06 08:05 PSHx: Cholecystectomy; kb4 kb4 10:27 09:12 nargis eb
--- NOTE | 2025-06-19 09:12 | ER ---
Nurse's Notes [facility] Name: Milan Weir Age: 85 yrs Sex: Female : 1940 Arrival Date: 06/19/2025 Time: 07:41 Bed 19 Private MD: Diagnosis: Dyspnea;COPD/ Chronic obstructive pulmonary disease with (acute) exacerbation Presentation: 06/19 08:03 Chief complaint: Patient states: c/o SOB, coughing x3-4d. Coronavirus screen: Client kb4 presents with at least one sign or symptom that may indicate coronavirus-19. Ebola Screen: No symptoms or risks identified at this time. Initial Sepsis Screen: Does the patient meet any 2 criteria? No. Patient's initial sepsis screen is negative. Does the patient have a suspected source of infection? No. Patient's initial sepsis screen is negative. Risk Assessment: Do you want to hurt yourself or someone else? Patient reports no desire to harm self or others. Onset of symptoms is unknown. 08:03 Method Of Arrival: EMS: [facility] kb4 08:03 Acuity: JARRETT 3 kb4 Triage Assessment: 08:05 General: Appears uncomfortable, ill, Behavior is calm, cooperative, appropriate for age.kb4 08:05 Neuro: Level of Consciousness is awake, alert, obeys commands, Oriented to person, kb4 place, time, situation. Cardiovascular: Patient's skin is warm and dry. Respiratory: Airway is patent Respiratory effort is even, unlabored, Respiratory pattern is regular, symmetrical. Historical: - Allergies: 08:05 ACETAMINOPHEN; kb4 08:05 Codeine; kb4 08:05 Morphine; kb4 08:05 tramadol; kb4 08:05 Tylenol-Codeine; kb4 - PMHx: 08:05 Alzheimers; COPD; HARD OF HEARING; Pancreatitis; kb4 - Immunization history:: Adult Immunizations up to date. - Infectious Disease History:: Denies. - Social history:: Smoking status: Patient denies any tobacco usage or history of. Screenin:42 Abuse screen: Denies threats or abuse. Denies injuries from another. Nutritional zm screening: No deficits noted. Tuberculosis screening: No symptoms or risk factors identified. 09:42 [facility] ED Fall Risk Assessment (Adult) History of falling in the last 3 months, zm including since admission No falls in past 3 months (0 pts) Confusion or Disorientation No (0 pts) Intoxicated or Sedated No (0 pts) Impaired Gait No (0 pts) Mobility Assist Device Used No (0 pt) Altered Elimination No (0 pt) Score/Fall Risk Level 0 - 2 = Low Risk Oriented to surroundings, Maintained a safe environment, Educated pt \T\ family on fall prevention, incl call for assistance when getting out of bed, Assessed \T\ reinforced patient's understanding of fall precautions, Hourly rounding (assess needs \T\ fall precautionary measures) done, Used ambulatory aids as needed (educated on \T\ assisted with), Used gait belt as appropriate. Assessment: 08:54 General: Appears in no apparent distress. uncomfortable, Behavior is calm, cooperative. zm Pain: Complains of pain in generalized Pain currently is 6 out of 10 on a pain scale. Neuro: Level of Consciousness is awake, alert, obeys commands, Oriented to person, place, time, situation. Cardiovascular: Patient's skin is warm and dry. Respiratory: Airway is patent Respiratory effort is even, unlabored, Respiratory pattern is regular, symmetrical. 10:27 Reassessment: Patient appears in no apparent distress at this time. No changes from previously documented assessment. Patient and/or family updated on plan of care and expected duration. Pain level reassessed. Patient is alert, oriented x 3, equal unlabored respirations, skin warm/dry/pink. Vital Signs: 08:03 BP 163 / 91; Pulse 91; Resp 20; Temp 98.2; Pulse Ox 99% on R/A; Weight 51.71 kg; Height kb4 5 ft. 3 in. ; 10:30 BP 128 / 50; Pulse 81; Resp 14; Temp 98.1; Pulse Ox 100% on R/A; Pain 4/10; zm 08:03 Body Mass Index 20.19 (51.71 kg, 160.02 cm) kb4 10:30 Pain Scale: Adult zm [place] Coma Score: 10:30 Eye Response: spontaneous(4). Motor Response: obeys commands(6). Verbal Response: zm oriented(5). Total: 15. ED Course: 07:44 Patient arrived in ED. mr 07:45 Sean Seymour MD is Attending Physician. [facility] 08:05 Triage completed. kb4 08:05 Arm band placed on left wrist. [facility] 08:30 XRAY Chest (1 view) In Process Unspecified. EDMS 08:41 Betzaida Vargas, RN is Primary Nurse. zm 09:11 Jose David Henley MD is Hospitalizing Provider. [facility] 09:15 First set of blood cultures drawn. zm 09:30 Patient has correct armband on for positive identification. Placed in gown. Bed in low zm position. Call light in reach. Side rails up X2. Provided Education on: call light use. 09:30 Client placed on continuous cardiac and pulse oximetry monitoring. NIBP monitoring zm applied. monitoring coordinator on. Door closed. Noise minimized. Lights dimmed. Warm blanket given. Verbal reassurance given. 09:30 Accessed Port-a-Cath. Blood collected. using accessed w/ # 20 Cerda needle, ,sterile zm technique, per hospital protocol. Clean \T\ dry. Dressing intact. Good blood return. Flushes easily. 09:30 Initial lab(s) drawn, by me, sent to lab. Second set of blood cultures drawn by me. zm 09:41 COVID swab sent to lab. zm 09:42 COVID-19 Ag + Flu A+B Ag Sent. zm 09:42 Basic Metabolic Panel Sent. zm 09:42 CBC with Diff Sent. zm 09:42 LFT's Sent. zm 09:42 Magnesium Sent. zm 09:42 NT PRO-BNP Sent. zm 09:42 PT-INR Sent. zm 09:42 Troponin HS Sent. zm 11:11 No provider procedures requiring assistance completed. Patient admitted, IV remains in zm place. Administered Medications: 09:19 Drug: Levalbuterol Inhalation 3.75 mg Inhalation once Route: Inhalation; [facility] 10:38 Follow up: Response: No adverse reaction 09:19 Drug: Ipratropium Inhalation Aerosol 0.5 mg Inhalation once Route: Inhalation; 4 10:38 Follow up: Response: No adverse reaction zm 09:41 Drug: MethylPrednisoLONE IVP 125 mg IVP once Route: IVP; Site: Port-a-cath; zm 10:38 Follow up: Response: No adverse reaction 09:41 Drug: NS 0.9% IV 1000 ml IV at 1 bolus Per protocol; to be given as a bolus over 60 zm minutes Route: IV; Rate: 1 bolus; Site: Port-a-cath; 11:12 Follow up: Response: No adverse reaction; IV Status: Completed infusion; IV Intake: zm 1000ml 09:41 Drug: Famotidine IVP 20 mg IVP once; dilute with 10 mL 0.9% NaCl; give over 2 minutes zm Route: IVP; Site: Port-a-cath; 10:38 Follow up: Response: No adverse reaction zm 09:41 Drug: levofloxacin IVPB 500 mg 100 ml IVPB once over 60 mins Volume: 100 ml; Route: zm IVPB; Infused Over: 60 mins; Site: Port-a-cath; 10:39 Follow up: Response: No adverse reaction; IV Status: Completed infusion; IV Intake: zm 100ml 10:45 Not Given (Physician Discretion): magnesium sulfate1 grams IVPB once over 1 hrs Medication: 10:27 VIS not applicable for this client. zm Intake: 10:39 IV: 100ml; Total: 100ml. zm 11:12 IV: 1000ml; Total: 1100ml. Outcome: 09:12 Decision to Hospitalize by Provider. nargis 11:11 Admitted to Med/surg accompanied by tech, via wheelchair, room 203, with chart, 11:11 Condition: stable 11:11 Instructed on the need for admit, Demonstrated understanding of instructions, 11:13 Patient left the ED. Signatures: Dispatcher [employer] EDSean Everett MD MD cha Rivera, Mary, Reg Reg Betzaida Adamson, RN RN Cindy Quick RN RN kb4 Corrections: (The following items were deleted from the chart) 08:06 08:05 PMHx: Hernia; kb4 kb4 08:06 08:05 PSHx: Adenoid excision; kb4 kb4 08:06 08:05 PSHx: Total abdominal hysterectomy; kb4 kb4 08:06 08:05 PSHx: Tonsillectomy; kb4 kb4 08:06 08:05 PSHx: double masectomy; kb4 kb4 08:06 08:05 PSHx: breast implants; kb4 kb4 08:06 08:05 PSHx: stomach surgery to prevent vomiting; kb4 kb4 08:06 08:05 PSHx: Appendectomy; kb4 kb4 08:06 08:05 PSHx: Cholecystectomy; kb4 kb4
[2025-06-19 09:49] LABS: Absolute Lymphocytes (CBC) 2.3 K/uL (0.7-4.9); Hematocrit 40.0 % (36.0-45.0); Hemoglobin 13.5 g/dL (12.0-15.0); MCH 30.1 pg (27.0-35.0); MCHC 33.7 g/dL (32.0-36.0); MCV 89.5 fL (80-100); MPV 8.0 fL (7.6-11.3); Nucleated RBC Absolute Count 0.0 (0-0); Nucleated Red Blood Cells % 0.0 % (0-0); RBC Red Blood Cell Count 4.47 M/uL (3.86-4.86); White Blood Count 8.00 thou/uL (4.3-10.9)
[2025-06-19 10:00] LABS: PT Prothrombin Time 11.8 SECONDS (10-13.0); Protime INR 1.05
[2025-06-19 10:11] LABS: ALT/SGPT 22.0 U/L (13-56); AST/SGOT 13.0 U/L (15-37); Albumin 3.1 g/dL (3.4-5.0); Albumin/Globulin Ratio 0.8 (1.1-1.8); Alkaline Phosphatase 95.0 U/L (45-117); Anion Gap 13.0 mEq/L (5.0-15.0); BUN Blood Urea Nitrogen 7.0 mg/dL (7-18); Bilirubin Indirect, Calculated 0.5 mg/dL (0.2-0.8); Globulin 3.9 g/dL (2.3-3.5); Glucose Level 113.0 mg/dL (74-106); Magnesium 1.6 mg/dL (1.6-2.4); NT PRO-BNP 113.0 pg/mL (<450); Potassium 3.0 mEq/L (3.5-5.1); Troponin High Sensitivity 6.0 pg/mL (<58.9)
[2025-06-19 10:17] LABS: Influenza A Ag Negative; Influenza B Ag Negative; SARS-CoV-2 Antigen Rapid Res Negative (Negative)
[2025-06-19] MEDS ORDERED: ACETAMINOPHEN 500 MG TAB PO PRN (10:23)
--- NOTE | 2025-06-19 10:40 | P.HP ---
Certification for Inpatient Patient admitted to: Observation With expected LOS: <2 Midnights Patient will require the following post-hospital care: None Practitioner: I am a practitioner with admitting privileges, knowledge of patient current condition, hospital course, and medical plan of care. Services: Services provided to patient in accordance with Admission requirements found in Title 42 Section 412.3 of the Code of Federal Regulations Patient History Date of Service: 06/19/25 Reason for admission: COPD exacerbation History of Present Illness: Milan Chin is an 85-year-old female with a past medical history significant for COPD, Alzheimer's disease, hypertension, GERD, and dementia who presented to the emergency department via EMS with complaints of shortness of breath with light activity that began 3 days ago and has been progressively worsening. Patient reports that symptoms are continual and worsening, aggravated by coughing, exertion, light activity, and prone positioning. She complains of airway noise, cough, and difficulty breathing. Symptoms are alleviated by elevating the head of the bed and remaining still. Symptoms are aggravated by activity, hot environment, and lying flat. Patient reports a non-productive cough. The progressive nature of her dyspnea with light activity and positional component prompted her presentation to the emergency department for evaluation. Allergies codeine Allergy (Verified 10/27/24 12:59) Nausea/Vomiting acetaminophen [From Tylenol] Adverse Reaction (Verified 10/27/24 12:59) Nausea/Vomiting morphine Adverse Reaction (Verified 12/21/24 22:18) Nausea/Vomiting Home medications list reviewed: Yes Home Medications: Donepezil [Aricept*] 5 mg PO BEDTIME 09/20/24 Memantine HCl 5 mg PO DAILY 09/20/24 Meperidine HCl 50 mg PO BID 09/20/24 Mirtazapine 15 mg PO DAILY 09/20/24 Promethazine HCl 12.5 mg PO PRN PRN 09/20/24 Promethazine Suppos [Phenergan -Suppos*] 12.5 mg RC PRN 09/20/24 Tramadol HCl [Ultram] 50 mg PO BEDTIME PRN 09/20/24 Lidocaine 4% Patch [Lidoderm 5% Patch*] 1 patch TOP DAILY PRN 12 Days #12 pat 09/24/24 Pantoprazole Sodium [Protonix] 40 mg PO BID 40 Days #30 tab 12/22/24 Sucralfate [Carafate*] 10 ml PO QID 10 Days #1 bottle 12/22/24 Ciprofloxacin HCl [Cipro] 250 mg PO BID #10 tab 12/27/24 Ondansetron [Zofran] 4 mg PO Q6H PRN 3 Days #15 tab 12/27/24 - Past Medical/Surgical History Has patient received pneumonia vaccine in the past: No Diabetic: No -: COPD -: Alzheimer's disease -: pancreatitis -: liver cirrhosis -: kidney disease -: bladder -: tonsilectomy -: appendectomy -: double mastectomy with reconstruction -: cholecystectomy -: gall bladder removed 2002 -: abdominal surgery Psychosocial/ Personal History: Lives at home with her daughter - Family History Mother Notes: ALZHEIMERS Brother -: GI disease Notes: internal bleeding - Social History Smoking Status: Former smoker Smoking therapy provided: No Patient receptive to therapy: No Alcohol use: No CD- Drugs: No Caffeine use: Yes Place of Residence: Home Review of Systems 10-point ROS is otherwise unremarkable Physical Examination - Physical Exam General: Alert, Oriented x3, Cooperative, Demented, Moderate distress HEENT: Atraumatic, Normocephalic, Mucous membr. moist/pink Neck: Supple, JVD not distended, No Thyromegaly, No LAD Respiratory: Clear to auscultation bilaterally, Normal air movement, Other (Increased work of breathing) Cardiovascular: No edema, Normal pulses, Regular rate/rhythm, Normal S1 S2, No gallops, No rubs, No murmurs Capillary refill: <2 Seconds Gastrointestinal: Normal bowel sounds, Soft and benign, Non-distended, W/out hepatosplenomegaly Musculoskeletal: No swelling, No contractures, No erythema, No tenderness Integumentary: No rashes, No breakdown, No significant lesion, No tenderness/swelling Neurological: Normal gait, Normal speech, Normal strength at 5/5 x4 extr, Normal tone, Sensation intact, Cranial nerves 3-12 intact, Normal affect - Studies Laboratory Data (last 24 hrs) 06/19/25 06/19/25 06/19/25 09:30 09:30 09:30 WBC 8.00 Hgb 13.5 Hct 40.0 Plt Count 231 PT 11.8 INR 1.05 Sodium 141 Potassium 3.0 L BUN 7 Creatinine 1.00 Glucose 113 H Magnesium 1.6 Total Bilirubin 0.7 AST 13 L ALT 22 Alkaline Phosphatase 95 Assessment and Plan - Plan This is an 85-year-old female with known COPD who presents with a 3-day history of progressive dyspnea on exertion consistent with COPD exacerbation. The clinical presentation of worsening shortness of breath with activity, non-p roductive cough, and positional dyspnea in the setting of her known COPD supports this diagnosis. Chest X-ray shows no acute infiltrates or effusions, ruling out pneumonia or heart failure as primary causes. Laboratory findings reveal hypokalemia and mild elevation in lactic acid, likely secondary to respiratory distress and possible dehydration. COPD Exacerbation: -Troponin negative, LFTs unremarkable - Continue DuoNeb breathing treatment for bronchodilation -Continue methylprednisolone 40 mg IV 3 times daily for anti-inflammatory effect - Continue Levaquin mg IV piggyback for potential bacterial component started in the ED, consider DC if infectious etiology not apparent - Continuous oxygen monitoring with nasal cannula 2 liters as needed - Monitor respiratory status and response to treatment - Monitor CBC - COVID/flu pending - Blood cultures collected, will follow - Sputum culture ordered Hypokalemia (potassium 3.0 mEq/L): - Initiate potassium replacement protocol - Repeat potassium level in the morning - Monitor for cardiac arrhythmias given low potassium - Replete with 50 mill equivalents p.o. now -Magnesium 1.6, repleted with 2 g IVPB - Monitor BMP Hypertension: - Blood pressure elevated at 163/91 mmHg on arrival - Continue monitoring, may be related to respiratory distress - Review home meds once med rec complete GERD: - Administered famotidine 20 mg IV once for gastric protection - Continue with pantoprazole 40 mg twice daily p.o. from home med list Dehydration: Lactic acidosis -Lactic acid 2.5, will repeat and trend to less than 2.2 - Administered 1 liter fluid bolus - Monitor fluid balance and electrolytes - Continue normal saline at 100 mL/h Dispo: -Anticipate home with no needs DVT prophylaxis: Lovenox GI prophylaxis: Pantoprazole for home med Diet: Regular Code Status: DNR Discharge Plan: Home Plan to discharge in: 24 Hours - Advance Directives Does patient have a Living Will: No Does patient have a Durable POA for Healthcare: No - Code Status/Comfort Care Code Status Assessed: Yes (DNR) Critical Care: No
[2025-06-19] MEDS: POTASSIUM 25 MEQ EFFERV TAB PO ONE ×2 (12:06→12:26)
[2025-06-19] MEDS: NA CHLORIDE 0.9% 1,000 ML IV SCH (12:26)
[2025-06-19] MEDS: Magnesium Sulfate 2gm IVPB 2 G/50 ML BAG IV ONE (12:26)
[2025-06-19] MEDS: FENTANYL CITR 100 MCG/2 ML IV PRN (12:44)
[2025-06-19] MEDS: PROMETHAZINE 25 MG TABLET PO PRN (12:45)
[2025-06-19] MEDS ORDERED: Levofloxacin 750mg IV 750 MG/150 ML BAG IV SCH (13:00)
[2025-06-19] MEDS: PANTOPRAZOLE 40MG TABLET PO SCH ×2 (16:45→20:23)
[2025-06-19] MEDS: METHYLPREDNISOLONE 40 MG INJ IV SCH (16:45)
[2025-06-19] MEDS ORDERED: MEPERIDINE HCL 50 MG PO PRN (19:59)
[2025-06-19] MEDS: MIRTAZAPINE 15 MG TAB PO SCH (20:07)
[2025-06-19] MEDS: DONEPEZIL HCL 5 MG TAB PO SCH (20:08)
[2025-06-19] MEDS: MEMANTINE HCL 10 MG TABLET PO SCH (20:23)
[2025-06-19 20:54] VITALS: O2SAT 95
[2025-06-20 08:08] VITALS: BP 143/65; TEMP 98
[2025-06-20 08:20] LABS: Absolute Lymphocytes (CBC) 1.3 K/uL (0.7-4.9); Hematocrit 38.7 % (36.0-45.0); Hemoglobin 12.7 g/dL (12.0-15.0); MCH 29.6 pg (27.0-35.0); MCHC 32.7 g/dL (32.0-36.0); MCV 90.5 fL (80-100); MPV 9.3 fL (7.6-11.3); Nucleated RBC Absolute Count 0.0 (0-0); Nucleated Red Blood Cells % 0.1 % (0-0); RBC Red Blood Cell Count 4.28 M/uL (3.86-4.86); White Blood Count 14.90 thou/uL (4.3-10.9)
[2025-06-20 08:33] LABS: Anion Gap 9.8 mEq/L (5.0-15.0); BUN Blood Urea Nitrogen 9.0 mg/dL (7-18); Glucose Level 152.0 mg/dL (74-106); Magnesium 2.1 mg/dL (1.6-2.4); Potassium 3.8 mEq/L (3.5-5.1); Thyroid Stimulating Hormone 0.323 uIU/mL (0.358-3.740)
[2025-06-20] MEDS: POTASS/SODIUM PHOSPHATE 1 PKT POWD.PACK ONE (08:46)
--- NOTE | 2025-06-20 08:48 | P.DS ---
Admission Date: 06/19/25 Discharge Date: 06/20/25 Primary Care Provider: Dr. Pino Disposition: ROUTINE DISCHARGE Discharge Condition: GOOD Reason for Admission: COPD exacerbation Brief History of Present Illness: Milan Chin is an 85-year-old female with a past medical history significant for COPD, Alzheimer's disease, hypertension, GERD, and dementia who presented to the emergency department via EMS with complaints of shortness of breath with light activity that began 3 days ago and has been progressively worsening. Patient reports that symptoms are continual and worsening, aggravated by coughing, exertion, light activity, and prone positioning. She complains of airway noise, cough, and difficulty breathing. Symptoms are alleviated by elevating the head of the bed and remaining still. Symptoms are aggravated by activity, hot environment, and lying flat. Patient reports a non-productive coug h. The progressive nature of her dyspnea with light activity and positional component prompted her presentation to the emergency department for evaluation. Hospital Course: COPD exacerbation: The patient presented with 3 days of progressive dyspnea on exertion and nonprod uctive cough. Chest X-ray showed no acute process. She received DuoNeb, methylprednisolone 125 mg IV x1, and levofloxacin 500 mg IV x1 with clinical improvement. She is now comfortable on room air without dyspnea and in no apparent distress. Continuous telemetry and oxygen monitoring remained stable, and she is medically stable for discharge with close outpatient follow-up with pulmonology/primary care (Dr. Pino) in 23 days. Hypokalemia: Admission potassium was 3.0 mEq/L. Potassium recheck show potassium within normal limits on day of discharge. Lactic acidosis/dehydration: Initial lactate was 2.5 mmol/L and improved to 1.9 mmol/L after a 1 L IV fluid bolus, consistent with volume depletion responsive to fluids. Hemodynamics remained stable. Infectious workup: Blood cultures were obtained; COVID-19 and influenza testing are pending. Empiric levofloxacin was administered. No infiltrate on chest X-ray. Hypertension: Blood pressure was elevated on arrival (163/91 mmHg), likely related to distress; values stabilized with treatment and monitoring. GERD: Famotidine 20 mg IV x1 was given. Plan to resume home PPI and sucralfate as appropriate on discharge. Other: Troponin measured at [address] in [address]; patient had no ischemic symptoms. BNP 113 pg/mL without clinical heart failure. Dementia and hearing impairment were accommodated with supportive care and clear communication. Vital Signs/Physical Exam: Temp Pulse Resp BP Pulse Ox 98.0 F 73 12 143/65 H 97 06/20/25 08:00 06/20/25 08:00 06/20/25 08:00 06/20/25 08:00 06/20/25 08:00 General: Alert, In no apparent distress, Oriented x3, Cachectic HEENT: Atraumatic, Normocephalic, Mucous membr. moist/pink Neck: Supple, JVD not distended, No Thyromegaly, No LAD Respiratory: Clear to auscultation bilaterally, Normal air movement Cardiovascular: No edema, Normal pulses, Regular rate/rhythm, Normal S1 S2 Capillary refill: <2 Seconds Gastrointestinal: Normal bowel sounds, Soft and benign, Non-distended, W/out hepatosplenomegaly Musculoskeletal: No clubbing, No swelling, No contractures, No erythema, No tenderness Integumentary: No rashes, No breakdown, No significant lesion Neurological: Normal gait, Normal speech, Normal strength at 5/5 x4 extr, Normal tone, Sensation intact, Cranial nerves 3-12 intact, Normal affect Laboratory Data at Discharge: WBC 14.90 thou/uL (4.3-10.9) H 06/20/25 07:52 Hgb 12.7 g/dL (12.0-15.0) 06/20/25 07:52 Hct 38.7 % (36.0-45.0) 06/20/25 07:52 Plt Count 102 thou/uL (152-406) L D 06/20/25 07:52 PT 11.8 SECONDS (10-13.0) 06/19/25 09:30 INR 1.05 06/19/25 09:30 Sodium 142 mEq/L (136-145) 06/20/25 07:40 Potassium 3.8 mEq/L (3.5-5.1) D 06/20/25 07:40 BUN 9 mg/dL (7-18) 06/20/25 07:40 Creatinine 1.01 mg/dL (0.55-1.02) 06/20/25 07:40 Glucose 152 mg/dL (74-106) H 06/20/25 07:40 Phosphorus 2.1 mg/dL (2.5-4.9) L 06/20/25 07:40 Magnesium 2.1 mg/dL (1.6-2.4) 06/20/25 07:40 Total Bilirubin 0.7 mg/dL (0.2-1.0) 06/19/25 09:30 AST 13 U/L (15-37) L 06/19/25 09:30 ALT 22 U/L (13-56) 06/19/25 09:30 Alkaline Phosphatase 95 U/L (45-117) 06/19/25 09:30 Home Medications: Donepezil [Aricept*] 5 mg PO BEDTIME 09/20/24 Memantine HCl 5 mg PO BID 09/20/24 Meperidine HCl 50 mg PO BID PRN 09/20/24 Mirtazapine 15 mg PO BEDTIME 09/20/24 Tramadol HCl [Ultram] 50 mg PO DAILY 09/20/24 Pantoprazole Sodium [Protonix] 40 mg PO BID 40 Days #30 tab 12/22/24 Omeprazole 10 mg PO DAILY 06/19/25 levoFLOXacin [Levaquin] 500 mg PO DAILY 6 Days #6 tab 06/20/25 predniSONE [Deltasone] 20 mg PO BID 4 Days #8 tab 06/20/25 New Medications: levoFLOXacin [Levaquin] 500 mg PO DAILY 6 Days #6 tab predniSONE [Deltasone] 20 mg PO BID 4 Days #8 tab Physician Discharge Instructions: PROBLEM: COPD exacerbation GOAL: Clear understanding of disease process, improved respiration INSTRUCTIONS: Follow-up with your PCP in the next 2 to 3 days. Take all your medications as prescribed. An antibiotic has been sent to your pharmacy for you to take once a day. Please take all of the medication until this finished even if you are feeling better. Prednisone has been sent to your pharmacy for supportive care for breathing. If you experience worsening shortness of breath please contact Dr. Pino. If he is not available, please seek emergency care if you are in respiratory distress. Diet: AHA Activity: Ad taty IN CASE YOU HAVE BEEN PRESCRIBED ANTIBIOTIC AT DISCHARGE, PLEASE READ ON. IF youve been Prescribed an Antibiotic, Then What? Your healthcare team thinks that you or your loved one might have an infection. Some infections can be treated with antibiotics, which are powerful, life-saving drugs. Like all medications, antibiotics have side effects and should only be used when necessary. There are some important things you should know about your antibiotic treatment. Your healthcare team may run tests before you start taking an antibiotic. * Your team may take samples (e.g., from your blood, urine or other areas) to run tests to look for bacteria. These tests can be important to determine if you need an antibiotic at all and, if you do, which antibiotic will work best. Within a few days, your healthcare team might change or even stop your antibiotic. * Your team may start you on an antibiotic while they are working to find out what is making you sick. * Your team might change your antibiotic because test results show that a different antibiotic would be better to treat your infection. * In some cases, once your team has more information, they learn that you do not need an antibiotic at all. They may find out that you dont have an infection, or that the antibiotic youre taking wont work against your infection. For example, an infection caused by a virus cant be treated with antibiotics. Staying on an antibiotic when you dont need it is more likely to be harmful than helpful. You may experience side effects from your antibiotic. * Like all medications, antibiotics have side effects. Some of these can be serious. * Let your healthcare team know if you have any known allergies when you are admitted to the hospital. * One significant side effect of nearly all antibiotics is the risk of severe and sometimes deadly diarrhea caused by Clostridium difficile (C. difficile). This occurs when a person takes antibiotics because some good germs are destr oyed. Antibiotic use allows C. difficile to take over, putting patients at high risk for this serious infection. * Diarrhea caused by C. difficile can be serious and must be recognized and treated quickly. When you are taking an antibiotic and you develop diarrhea, let your healthcare team know immediately. * The risk of getting C. difficile diarrhea can last for up to a few weeks even after you are no longer getting antibiotics. You should let your healthcare team know if you develop diarrhea even after you are no longer getting an antibiotic. * Another serious side effect of taking antibiotics is the risk of getting an antibiotic-resistant infection later. Infections caused by antibiotic- resistant bacteria are often more difficult to treat. In some cases, the antibiotic-resistant infections can lead to serious disability or even . As a patient or caregiver, it is important to understand your or your loved one s antibiotic treatment. It is especially important for caregivers to speak up when patients cant speak for themselves. Here are some important questions to ask your healthcare team. * What infection is this antibiotic treating and how do you know I have that infection? * What side effects might occur from this antibiotic? * How long will I need to take this antibiotic? * Is it safe to take this antibiotic with other medications or supplements (e.g., vitamins) that I am taking? * Are there any special directions I need to know about taking this antibiotic? For example, should I take it with food? * How will I be monitored to know whether my infection is responding to the antibiotic? * What tests may help to make sure the right antibiotic is prescribed for me? Remember, antibiotics are life-saving drugs and they need to be used properly. If you have any questions about your antibiotics, please talk to your healthcare team. [place] [employer] of [employer] and [employer] [facility] Division of Healthcare Quality Promotion Diet: AHA Activity: Ad taty Followup: Burak Pino MD [ACTIVE - CAN ADMIT] - 2-3 Days Time spent managing pt's care (in minutes): 35
[2025-06-20] MEDS: POTASS/SODIUM PHOSPHATE 1 PKT POWD.PACK PO ONE (08:49)
[2025-06-20] MEDS: ENOXAPARIN 40 MG/0.4 ML SQ SCH (08:49)
[2025-06-20] MEDS: TRAMADOL HCL 50 MG TAB PO SCH (08:49)
[2025-06-20] MEDS: HOME MED 1 EA UNK (Omeprazole [Omeprazole] 10 MG Capsule.Dr) PO SCH (08:52)
[2025-06-20 09:50] LABS: White Blood Cell Scan OK (OK)
[2025-06-20 09:51] LABS: Anisocytosis 1+; Blood Morphology Comment NOTED (NOT SEEN)
[2025-06-20 10:07] LABS: Poikilocytosis 1+
[2025-06-20 10:08] LABS: Burr Cells FEW; Ovalocytes SLIGHT
[2025-06-20] MEDS ORDERED: Levofloxacin 750mg IV 750 MG/150 ML BAG IV SCH ×2 (12:25→13:00)
== END 2025-06-20 10:05 | disposition home or self-care (01) ==
LOC: ER 07:41 → 2ND 10:22
PROVIDERS: ADMIT Hospitalist; ATTEND Hospitalist
DX: J44.1 Chronic obstructive pulmonary disease with (acute) exacerbation (principal); G30.9 Alzheimer's disease, unspecified; F02.80 Dementia in other diseases classified elsewhere, unspecified severity, without behavioral disturbance, psychotic disturbance, mood disturbance, and anxiety; I10 Essential (primary) hypertension; K21.9 Gastro-esophageal reflux disease without esophagitis; R05.9 Cough, unspecified; E87.6 Hypokalemia; E86.0 Dehydration; E87.20 Acidosis, unspecified; Z11.52 Encounter for screening for COVID-19; Z88.5 Allergy status to narcotic agent; Z88.6 Allergy status to analgesic agent; Z87.891 Personal history of nicotine dependence
CPT/HCPCS: 96365; 96361; 93005; 87040 ×2; 85025 ×2; 80048 ×2; 36415 ×2; 83735 ×2; 84100; 85610; 80076; 83605 ×3; 84443; 84484; 84439; 83880; 71045; 94760 ×2; 96375; 99285; 87428; Q0169; J3475; J7614; J7644; J1650; J3010 ×2; J2919 ×4; J7030 ×3; G0378